=== PATIENT | male | born 1990 | race Caucasian/White ===

== ENCOUNTER 2024-11-16 13:55 | Outpatient (BNV) | payer MEDICARE, MEDICAID, SELFPAY | END 2024-11-25 13:59 | PROVIDERS: Admitting Provider Psychiatry & Neurology Psychiatry; PCP Psychiatry & Neurology Psychiatry; Visit Provider Internal Medicine Cardiovascular Disease | DX: R00.0 Tachycardia, unspecified (principal) | CPT/HCPCS: 93010 ==

== ENCOUNTER 2024-11-16 13:55 | Outpatient (BNV) | payer MEDICARE, MEDICAID, SELFPAY | END 2024-11-28 15:40 | PROVIDERS: Admitting Provider Psychiatry & Neurology Psychiatry; PCP Psychiatry & Neurology Psychiatry; Visit Provider Internal Medicine Cardiovascular Disease | DX: R00.0 Tachycardia, unspecified (principal) | CPT/HCPCS: 93010 ==

== ENCOUNTER 2024-11-16 13:55 | Inpatient (IN) | payer MEDICARE, MEDICAID, SELFPAY ==
--- OUTSIDE RECORDS SUMMARY | 2024-11-15 17:06 | XMS_ITS | Encounter Summary ---
Author Organization [facility] Address [id number] [place] [address] Care Team Providers Care Dobie Man Name Role Phone Ekta Conroy MD Primary Care Provider [phone] Reason for Visit * Reason Comments Psychiatric Evaluation Encounter Details Date Type Department Care Team ([facility] st Contact Info) Description 11/15/2024 5:06 PM EDT - 11/16/2024 1:39 PM EDT Emergency [facility] Emergency [address] [place] [address] Abilio Bryant MD [address] [place] [address] Angel Dial MD [address] [place] [address] Azam Mays MD [address] [place] [address] Frandy Cowan MD [address] [place] [address] Suicidal ideation (Primary Dx) Discharge Disposition: Psychiatric Hospital Social History Tobacco Use Types Packs/Day Years Used Date Smoking Tobacco: Never Smokeless Tobacco: Never Sex and Gender Information Value Date Recorded Sex Assigned at Not on file Legal Sex Male 7:43 PM EST Gender Identity Not on file Sexual Orientation Not on file documented as of this encounter Last Filed Vital Signs Vital Sign Reading Time Taken Comments Blood Pressure 124/90 11/16/2024 12:19 PM EDT Pulse 98 11/16/2024 12:19 PM EDT Temperature 36.7 C (98.1 F) 11/16/2024 12:19 PM EDT Respiratory Rate 16 11/16/2024 12:19 PM EDT Oxygen Saturation 97% 11/16/2024 12:19 PM EDT Inhaled Oxygen Concentration - - Weight 118 kg (260 lb) 11/15/2024 5:20 PM EDT Height 180.3 cm (5' 11 ) 11/15/2024 5:20 PM EDT Body Mass Index 36.26 11/15/2024 5:20 PM EDT documented in this encounter Functional Status * Are you deaf or do you have serious difficulty hearing? Answer Date of Assessment Author No 09/26/2024 1:18 AM Lexii Messina RN * Are you blind or do you have serious difficulty seeing, even when wearing glasses? Answer Date of Assessment Author No 09/26/2024 1:18 AM Lexii Messina RN * Do you have serious difficulty walking or climbing stairs? Answer Date of Assessment Author No 09/26/2024 1:18 AM Lexii Messina RN * Do you have serious difficulty dressing or bathing? Answer Date of Assessment Author No 09/26/2024 1:18 AM Lexii Messina RN * Because of a physical, mental, or emotional condition, do you have serious difficulty doing errandsalone such as visiting the doctor? Answer Date of Assessment Author No 09/26/2024 1:18 AM Lexii Messina RN documented as of this encounter Mental Status * Because of a physical, mental, or emotional condition, do you have serious difficulty concentrating, remembering, or making decisions? (5 years old or older) Answer Entry Date Author No 09/26/2024 1:18 AM Lexii Messina RN documented in this encounter Medications at Time of Discharge buPROPion XL (WELLBUTRIN XL) 150 mg 24 hr tabletIndication s:anxiety with depression Take 2 tablets (300 mg total) by mouth 1 (one) time each day. 08/02/2024 cloZAPine (CLOZARIL) 200 mg tablet Take 2 tablets (400 mg total) by mouth at bedtime. divalproex (DEPAKOTE) [address] tablet Take 2 tablets (500 mg total) by mouth 1 (one) time each day. 04/12/2024 divalproex sodium (DEPAKOTE ORAL) Take 1,000 mg by mouth at bedtime. docusate sodium (COLACE) 100 mg capsule Take 1 capsule (100 mg total) by mouth 2 (two) times a day. 07/16/2024 fluticasone propionate (FLONASE) 50 mcg/actuation nasal spray Administer 1 spray into each nostril 1 (one) time each day if needed for allergies. 12/13/2023 risperiDONE (RisperDAL) 1 mg tablet Take 1 tablet (1 mg total) by mouth 1 (one) time each day in the morning. risperiDONE (RisperDAL) 4 mg tablet Take 1 tablet (4 mg total) by mouth at bedtime. acetaminophen (TYLENOL) 325 mg tablet Take 2 tablets (650 mg total) by mouth every 4 (four) hours if needed. for pain 12/02/2023 hydrOXYzine pamoate (VISTARIL) 50 mg capsule Take 1 capsule (50 mg total) by mouth every 6 (six) hours if needed for anxiety. 07/27/2024 ibuprofen (ADVIL,MOTRIN) 600 mg tablet Take 1 tablet (600 mg total) by mouth every 8 (eight) hours if needed for mild pain. 01/24/2024 LORazepam (ATIVAN) 1 mg tablet Take 1 tablet (1 mg total) by mouth every 8 (eight) hours if needed for anxiety. documented as of this encounter Discharge Disposition Disposition Code Departure Means Destination Comment s Psychiatric Hospital documented in this encounter Progress Notes * Charito Hoyt - 11/16/2024 11:23 AM EDT BED FOUND - Patient accepted to [facility], unit M5, by Dr Valencia for today 11/16/24; ETA set for 2pm. * Angel Dial MD - 11/15/2024 5:58 PM EDT Pt signed out to me by Dr. Bryant. Briefly, this is a 34-year-old male who is evaluated today with chief complaints of suicidal ideation. [facility] a [facility] and has been there for quite some time, he states that he has been abandoned by his family and has not been seen by his family for the past several years. The patient is continue endorsing hopelessness and distraught feelings. I did speak with Bill from crisis team, who does recommend involuntary admission. At this time a bed search is underway. Patient care signed out to Dr. Terry at shift change for further care. * Richardson Maya RN - 11/15/2024 5:04 PM EDT Patient coming from [facility] with several days of depression and suicidal ideation. No plan * Abilio Bryant MD - 11/15/2024 5:00 PM EDT Emergency Medicine Note Patient Name: Ash Phillips Initial Evaluation: 11/15/2024 : 1990 Patient's PCP: Ekta Conroy MD Emergency Physician: Abilio Bryant MD History of Present Illness Chief Complaint: Chief Complaint Patient presents with Psychiatric Evaluation HPI: 34-year-old male presents with suicidal ideation from [facility]. Per EMS report, group and staff state that the patient has history of depression with prior SI attempt and inpatient psychiatrichospitalization. Patient has been having worsening depression and suicidality. Patient states he has acute stressors of loss of support from family, inability to get a job. States that he is feeling distraught, hopeless, and endorses SI. He just denies a specific plan means or intent, states he wanted to be seen before he got that bad again. Previous History Past Medical History: Diagnosis Date Bipolar disorder ([facility] V24, [facility] V28) 03/2022 per emr Cellulitis 03/2022 admitted for cellulitis, see emr, left great toe GERD (gastroesophageal reflux disease) 2008 per EMR Hyperammonemia ([facility] V24) 2019 per EMR Hypertriglyceridemia 2019 per EMR Tolley toxicity 2019 per EMR Normochromic normocytic anemia 2019 per EMR Schizoaffective disorder ([facility] V24, [facility] V28) 03/2022 per emr Seizure disorder ([facility] V24, [facility] V28) 03/2022 per emr Past Surgical History: Procedure Laterality Date REVISION 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 No current facility-administered medications on file prior to encounter. Current Outpatient Medications on File Prior to Encounter Medication Sig Dispense Refill buPROPion XL (WELLBUTRIN XL) 150 mg 24 hr tablet Take 2 tablets (300 mg total) by mouth 1 (one) time each day. cloZAPine (CLOZARIL) 200 mg tablet Take 2 tablets (400 mg total) by mouth at bedtime. divalproex (DEPAKOTE) [address] tablet Take 2 tablets (500 mg total) by mouth 1 (one) time each day. divalproex sodium (DEPAKOTE ORAL) Take 1,000 mg by mouth at bedtime. docusate sodium (COLACE) 100 mg capsule Take 1 capsule (100 mg total) by mouth 2 (two) times a day. fluticasone propionate (FLONASE) 50 mcg/actuation nasal spray Administer 1 spray into each nostril 1 (one) time each day if needed for allergies. risperiDONE (RisperDAL) 1 mg tablet Take 1 tablet (1 mg total) by mouth 1 (one) time each day in the morning. risperiDONE (RisperDAL) 4 mg tablet Take 1 tablet (4 mg total) by mouth at bedtime. acetaminophen (TYLENOL) 325 mg tablet Take 2 tablets (650 mg total) by mouth every 4 (four) hours if needed. for pain (Patient not taking: Reported on 09/25/2024) hydrOXYzine pamoate (VISTARIL) 50 mg capsule Take 1 capsule (50 mg total) by mouth every 6 (six) hours if needed for anxiety. (Patient not taking: Reported on 09/25/2024) ibuprofen (ADVIL,MOTRIN) 600 mg tablet Take 1 tablet (600 mg total) by mouth every 8 (eight) hours if needed for mild pain. (Patient not taking: Reported on 09/25/2024) LORazepam (ATIVAN) 1 mg tablet Take 1 tablet (1 mg total) by mouth every 8 (eight) hours if needed for anxiety. [DISCONTINUED] Banophen 50 mg capsule Take 1 capsule (50 mg total) by mouth every 8 (eight) hours if needed (tremors). (Patient not taking: Reported on 09/25/2024) [DISCONTINUED] hydrocortisone 2.5 % cream Apply 1 Application topically 2 (two) times a day if needed (dry hands). (Patient not taking: Reported on 09/25/2024) [DISCONTINUED] OLANZapine (ZyPREXA) 5 mg tablet Take 1 tablet (5 mg total) by mouth 4 (four) times a day if needed. (Patient not taking: Reported on 09/25/2024) [DISCONTINUED] traZODone (DESYREL) 50 mg tablet Take 1 tablet (50 mg total) by mouth at bedtime as needed for sleep. (Patient not taking: Reported on 09/25/2024) [DISCONTINUED] valACYclovir (VALTREX) 1 gram tablet Take 1 tablet (1,000 mg total) by mouth at bedtime. [DISCONTINUED] valACYclovir (VALTREX) 500 mg tablet Take 1 tablet (500 mg total) by mouth 1 (one) time each day. (Patient not taking: Reported on 09/25/2024) Physical Exam ED Triage Vitals Temp Pulse Resp BP -- -- -- -- SpO2 Temp src Heart Rate Source Patient Position -- -- -- -- BP Location FiO2 (%) -- -- GENERAL: Well-Appearing SKIN: Warm, dry, normal for ethnicity. No rashes. HEENT: Normal sclera, noninjected nonicteric CHEST: Normal peripheral perfusion, no edema PULMONARY: Normal respiratory effort ABDOMINAL: Nondistended NEURO: Alert and oriented, moving all extremities equally PSYCHIATRIC: Flat affect, fluid speech, good eye contact and appropriate demeanor. Endorsing SI, denies HI. Denies VAH. No RIS. Results Labs Reviewed CBC AND DIFFERENTIAL Narrative: The following orders were created for panel order CBC and differential. Procedure Abnormality Status --------- ------ CBC auto differential[[id number]] Please view results for these tests on the individual orders. COMPREHENSIVE METABOLIC PANEL ETHANOL ACETAMINOPHEN LEVEL SALICYLATE LEVEL DRUG ABUSE SCREEN 8A PANEL, URINE CBC WITH AUTO DIFFERENTIAL Abnormal Labs Reviewed - No abnormal labs to display No orders to display I have discussed the incidental/abnormal imaging and/or lab abnormalities with the patient and haveinstructed them the need for further evaluation and workup with their primary care doctor. I have provided the patient with a paper copy of the abnormality. The laboratory results, imaging results and other diagnostic exam results were reviewed in the EMR. Medical Decision Making Differential Diagnosis: Suicidal ideation MDM: 34 old male with a history of prior self-harm and inpatient psychiatric hospitalization presents for worsening depression and suicidal ideation. Medically cleared and referred to crisis. Clinical Impression: Suicidal ideation SEPSIS Exemption: [ x ] It is unlikely this patient has sepsis at the time of my evaluation. Medications - No data to display ED Course as of 11/15/24 1724 WedNov 15, [id number] I, Dr. Diego Bryant, signed this patient out pending further workup and evaluation. History and physical reviewed with oncoming team. At this point the pending portions of the work-up are: Follow crisis evaluation [MG] ED Course User Index [MG] Abilio Bryant MD Clinical Impressions as of 11/15/24 172 Suicidal ideation Procedures Procedures Diagnosis 1. Suicidal ideation Disposition Send to Specialty Department ED Prescriptions None Abilio Byrant MD 11/15/24 1718 Abilio Bryant MD 11/15/24 1724 documented in this encounter Consult Notes * Jasmin Rivera - 11/16/2024 11:25 AM EDT Images from the original note were not included. Behavioral Health Services - Mental Status Update Important times Time assessment started: 11/16/24 10:45 am Time of disposition: 11/16/24 11:15 am Location: [facility] Emergency Department Consulted case with: Jessica Ontiveros LCSW Insurance information: Insurance: Medicare A&B Verified by: Jay Reason for Consultation / Presenting Problem: Ash Phillips is being seen today for a 24 hour re-evaluation due to their state wide bed search being exhausted. 34-year-old male presents with [facility] ideation from [facility]. Per EMS report, group and staff state that the patient has history of depression with prior SI attempt and inpatient psychiatric hospitalization. Patient has been having worsening depression and suicidality. Patient states he has acute stressors of loss of support from family, inability to get a job. States that he is feeling distraught, hopeless, and endorses SI. He just denies a specific plan means or intent, states he wanted to be seen before he got that bad again. He was deemed inpatient level of care. Ash was seen for a mental status update. Ash stated I am depressed and having suicidal thoughts . He stated it will poop into my head several times a day and then I decided to come here before I do something . He reported I am so tired of trying and still feeling like this . Collaterals, contact information, and engagement level: Therapist: [facility] Dr. Pacheco [phone] Psychiatrist: [facility] Dr. Pacheco [phone] PCP: Dr. Ekta Baez [phone] Family: none reported. Other: [facility] worker Ioana Antoine: [phone] [facility]: [phone] Bicycle Assembler Carla Music Engineer Carla Latoya [phone] Director [facility] [phone] Mental Status Speech: WNL Eye Contact: WNL Motor Activity: Slowed Mood: Depressed Affect: Flat Sleep: Fair Appetite: WNL Memory: WNL Attention / Concentration: WNL Behavior: Cooperative Hallucinations: Auditory Delusions: None Thought Content: WNL SI: Presence HI: Denied Thought Process: Hopeless and helpless Orientation Impairment: None Insight: Poor Judgment: Poor Impulse Control: Fair Medications: Scheduled Meds: buPROPion XL, 300 mg, oral, Daily cloZAPine, 400 mg, oral, Nightly divalproex, 500 mg, oral, Daily docusate sodium, 100 mg, oral, BID risperiDONE, 1 mg, oral, q AM risperiDONE, 4 mg, oral, Nightly Continuous Infusions: PRN Meds: PRN medications: acetaminophen, fluticasone propionate, hydrOXYzine pamoate, ibuprofen, LORazepam Risk Assessment: Self-Harm: None Suicidal Behavior: Ideation Homicidal Behavior: None Physical Assault: None Physical Aggression: None Property Damage: None Verbal Aggression: None Family history of suicide: None reported Protective Factors: Providers are supportive Risk Factors: Suicidal thoughts Increased depression Suicide Risk: Based on patient's history and current presentation, their level of risk for intentional lethal harm is considered Low Safety Plan Completed: yes Ash is going inpatient for safety. Interventions: Used active listening Response to interventions: Ash was engaged in the conversation. DSM-5TR Diagnosis: F25.0 Schizoaffective D/O Bipolar Type Plan: Ash is at high risk for suicidal plan and intent. He is at low risk for homicidal plan and intent. He would continue to benefit from inpatient level of care for safety, stabilization and medication evaluation. He is on a section 12 involuntary. Recommendations were discussed with requesting provider. It was a pleasure to assist Ash Phillips here at [facility]. This report is written and finalized by: Jasmin Rivera MS Behavioral Health Specialist [facility] (Tel): [phone] / : [phone] * Sher Carmita - 11/15/2024 6:51 PM EDTAssociated Order(s): IP CONSULT TO MANUFACTURING MAINTENANCE TECHNICIAN; IP CONSULT TO MANUFACTURING MAINTENANCE TECHNICIAN; IP CONSULT TO MANUFACTURING MAINTENANCE TECHNICIAN Images from the original note were not included. Behavioral Health Services - Crisis Assessment Important times Time of arrival: 5:00PM--11/15/2024 Time of referral: 5:17PM--11/15/2024 Time of readiness: 5:19PM--11/15/2024 Time assessment started: 6:00PM--11/15/2024 Time of disposition: 6:45PM--11/15/2024 Location: [facility] Consulted case with: Seble Ragland PsyD Insurance information: Insurance: Medicare A&B Verified by: Bill Reason for Consultation / Presenting Problem: Ash Phillips is being seen today for a consultive service at the request of Angel Dial MD to assess risk and identify appropriate level of care. The patient is a 34-year-old male White male who presents with [facility] ideation from [facility]. Per EMS report, group and staff state that the patient has a history of depression with prior suicidal attempt and inpatient psychiatric hospitalization. The patient has been having worsening depression andsuicidality. The patient states that he has acute stressors of loss of support from family; his inability to get a job. He states that he is feeling distressed, hopeless, and endorses SI. He just denies a specific plan means or intent. He states he wanted to be seen before he got that bad again. During the assessment, the patient appears sad, but cooperative and engaging. He stated, ???I'm notfeeling that great, I feel super depressed than usual and this being going on for the last 4 days.?? He stated his medication was not working for him and recently his prescriber made some changes but so far, no noticeable improvement yet. His family has been disconnected and has been cut- off communication with him since 2009, and no one calls to talk to him or check on him. He has been in this current group-home for 7 years. In addition, he cannot find a job or volunteer. He continued to endorse suicidal ideation, but he stated that he came here before he gets to the point where he might harm himself. History of Present Illness: Ash is a 34 y.o. male with Chief Complaint Patient presents with Psychiatric Evaluation Social/Educational History: Guardian - if Yes, provide contact information: Elton Granados ([phone]) [place] Status: none State Agency Involvement: [facility]. Kyrie's Order: Not reported Marital Status: Single Alternative Placement Details: N/A Living Situation for patient: Residential The patient lives in a group-home. Household Members/Age: unknown Friendships/Family/Social Peer Support/Relationships: No family contact reported, he has the group-home staff. Highest level of education: High School. Comments (Include Learning Needs): none reported. Occupation: Unemployed. Employment/Extracurricular Activities/Hobbies: none reported. Limitations of Daily Activities: No limitation reported. Strengths/Supports: Ash can advocated for his needs. Collaterals, contact information, and engagement level: Therapist: [facility] Dr. Pacheco [phone] Psychiatrist: [facility] Dr. Pacheco [phone] PCP: Dr. Ekta Baez [phone] Family: none reported. Other: [facility] worker Ioana Antoine: [phone] [facility]: [phone] Bicycle Assembler Carla Music Engineer Carla Klein [phone] Director [facility] [phone] Mental Status Speech: WNL Eye Contact: WNL Motor Activity: WNL Mood: WNL Affect: Flat Sleep: Poor Appetite: Fair Memory: WNL Attention / Concentration: WNL Behavior: Cooperative Appearance: Hallucinations: None Delusions: None Thought Content: WNL SI: Presence HI: Denied Thought Process: WNL Orientation Impairment: None Insight: WNL Judgment: WNL Impulse Control: WNL Substance Use History (Including family history): The patient did not reports history of substance use Utox Results: All negative Substance Use Treatment History: No history of treatment history. Mental Health Treatment History: Outpatient Mental Health Treatment: Yes, [facility]. Previous or Current Psychological Diagnosis: Schizoaffective/ Bipolar Type, depression, anxiety. Prior Psychiatric Hospitalizations/Residential Treatment Facilities: The patient stated that he is being admitted about 4/5 times a year mostly for medication and suicidal ideation. Other Comments Regarding Mental Health Treatment History: The patient has a significant psych history of admission and treatment in various hospitals and facilities. Mental Health Concerns in Family: He reported his mom has a history of psychosis, take medication and previous admission, but not able to list specific as far as diagnosis and hospital location. Trauma History: None reported. Medications: Scheduled Meds: Not able to list. Continuous Infusions: N/A PRN Meds: N/A Risk Assessment: Self-Harm: Past and Current Suicidal Behavior: Current Homicidal Behavior: None Physical Assault: None Physical Aggression: None Property Damage: None Verbal Aggression: None Family history of suicide: None reported. Protective Factors: Has providers working with him 24 hour staff working with him. Has safe housing, take his medication as prescribed, help seeking. Risk Factors: previously reported suicidal and tried to run in front of a car, present today with suicidal ideation, previous attempts by overdosing and try to jump from the second floor, missed his family no one calls to check on him since 2009, history of diagnoses, history of multiple admissions. Suicide Risk: Based on patient's history and current presentation, their level of risk for intentional lethal harm is considered Moderate Safety Plan Completed: no The patient will remain in the ED on bed search. Interventions: Active listening, empathetic listening, brief counseling, psychoeducation, support, and safety planning. Response to interventions: The patient engaged to the best of her ability. DSM-5TR Diagnosis: F32.9 Unspecified Depressive Disorder F25.0 Schizoaffective D/O Bipolar Type Plan: Ash is a 34 years old, White male who is being seen today due to increased depression and feeling suicidal, he thought to come here for help before he gets to the point where he will harm himself.He is currently suicidal risk and feeling safe to go back into the community. Based on the above information, it is my clinical opinion that Ash would benefit from an inpatient psychiatric admission for safety and containment, mood stabilization, medication evaluation, diagnostic clarification, and participation in a therapeutic milieu. Upon discharge, he would benefit from a referral to outpatient providers for continued medication management, and to gain insight and psychoeducation into his mental health symptoms and develop adaptive coping skills for his depression and suicidal ideation. Recommendations were discussed with requesting provider. It was a pleasure to assist Ash Phillips here at [facility]. This report is written and finalized by: DANNY Garcia Behavioral Health Specialist [facility] (Tel): [phone] / : [phone] documented in this encounter Miscellaneous Notes * ED Bed Hold Note - Debi Fernandes RN - 11/15/2024 5:06 PM EDT Bed: GA-D Expected date: Expected time: Means of arrival: Comments: 34 yo M +SI; calm/cooperative/voluntary documented in this encounter Plan of Treatment Upcoming Encounters Date Type Department Care Team (Late st Contact Info) Description 01/16/2025 11:00 AM EDT Consult Orthopedic Surgery - [facility] [address] [facility] [address] [place] [id number] Papi Francois, [facility] [address] [place] [address] Pending Results Name Type Priority Associated Diagnoses Date /Time ECG 12 lead ECG STAT 11/16/2024 10 :34 AM EDT documented as of this encounter Procedures Procedure Name Priority Date/Time Associated Diagnosis Comments ECG 12-LEAD STAT 11/16/2024 10:34 AM EDT CBC WITH AUTO DIFFERENTIAL STAT 11/15/2024 5:32 PM EDT CBC AND DIFFERENTIAL STAT 11/15/2024 5:32 PM EDT ETHANOL STAT 11/15/2024 5:32 PM EDT ACETAMINOPHEN LEVEL STAT 11/15/2024 5 :32 PM EDT SALICYLATE LEVEL STAT 11/15/2024 5:32 PM EDT COMPREHENSIVE METABOLIC PANEL STAT 11/15/2024 5:32 PM EDT DRUG ABUSE SCREEN 8A PANEL, URINE STAT 11/15/2024 5:16 PM EDT documented in this encounter Results * (ABNORMAL) CBC auto differential (11/15/2024 5:32 PM EDT) WBC 6.8 4.8 - 10.8 K/mcL LAB HEMETOLOGY METHOD 11/15/2024 5:56 PM EDT [facility] RBC 5.10 4.50 - 5.50 M/mcL LAB HEMETOLOGY METHOD 11/15/2024 5:56 PM EDT [facility] Hemoglobin 14.6 13.5 - 17.5 g/dL LAB HEMETOLOGY METHOD 11/15/2024 5:56 PM EDT [facility] Hematocrit 45.0 42.0 - 54.0 % LAB HEMETOLOGY METHOD 11/15/2024 5:56 PM EDT [facility] MCV 87.9 79.0 - 98.0 FL LAB HEMETOLOGY METHOD 11/15/2024 5:56 PM EDT [facility] MCH 28.5 27.0 - 32.0 pcg LAB HEMETOLOGY METHOD 11/15/2024 5:56 PM EDT [facility] MCHC 32.4 32.0 - 37.0 g/dL LAB HEMETOLOGY METHOD 11/15/2024 5:56 PM EDT [facility] RDW 13.1 11.0 - 15.0 % LAB HEMETOLOGY METHOD 11/15/2024 5:56 PM EDT [facility] Platelets 196 130 - 400 K/mcL LAB HEMETOLOGY METHOD 11/15/2024 5:56 PM EDT [facility] MPV 10.2 7.0 - 11.0 FL LAB HEMETOLOGY METHOD 11/15/2024 5:56 PM EDT [facility] NRBC 0.0 <1.0 % LAB HEMETOLOGY METHOD 11/15/2024 5:56 PM [facility] NRBC Absolute 0.00 <0.10 K/mcL LAB HEMETOLOGY METHOD 11/15/2024 5:56 PM [facility] Neutrophils Relative 44.9 % LAB [facility]EMETOLOGY [facility] Lymphocytes Relative 39.8 % LAB HEMETOLOGY METHOD 11/15/2024 5:56 PM EDT [facility] Monocytes Relative 11.3 % LAB HEMETOLOGY METHOD [facility]/15[facility]2024 5:[facility] PM [facility] Eosinophils Relative 2.5 % LAB HEMETOLOGY METHOD 11/15/2024 5:56 PM [facility] Basophils Relative 0.6 % LAB HEMETOLOGY METHOD 11/15/2024 5:56 PM EDT [facility] Immature Granulocytes Relative 0.9 % LAB HEMETOLOGY METHOD 11/15/2024 5:56 PM EDT [facility] Neutrophils Absolute 3.05 1.50 - 7.00 K/mcL LAB HEMETOLOGY METHOD 11/15/2024 5:56 PM EDT [facility] Lymphocytes Absolute 2.70 1.00 - 5.00 K/mcL LAB HEMETOLOGY METHOD 11/15/2024 5:56 PM EDT [facility] Monocytes Absolute 0.77 0.20 - 1.00 K/mcL LAB HEMETOLOGY METHOD 11/15/2024 5:56 PM EDT [facility] Eosinophils Absolute 0.17 0.00 - 0.50 K/mcL LAB HEMETOLOGY METHOD 11/15/2024 5:56 PM EDT [facility] Basophils Absolute 0.04 0.00 - 0.20 K/mcL LAB HEMETOLOGY METHOD 11/15/2024 5:56 PM EDT [facility] Immature Granulocytes Absolute 0.06(H) 0.00 - 0.03 K/mcL LAB HEMETOLOGY METHOD 11/15/2024 5:56 PM EDT [facility] Blood Venous blood specimen / Unknown Venipuncture / Unknown 11/15/2024 5:32 PM EDT 11/15/2024 5:50 PM EDT us Abilio Bryant MD LAB BLOOD ORDERABLES Final Resu lt [facility] [address] [place] [address], * (ABNORMAL) Salicylate level (11/15/2024 5:32 PM EDT) Salicylate Level <1.7(L) 2.0 - 29.0 mg/dL LAB CHEMISTRY METHOD 11/15/2024 6:22 PM EDT [facility] Blood Venous blood specimen / Unknown Venipuncture / Unknown 11/15/2024 5:32 PM EDT 11/15/2024 5:50 PM EDT us Abilio Bryant MD LAB BLOOD ORDERABLES Final Resu lt Performing Organization Address [facility] de Phone Number [facility] [address] [place] [address], [place] [phone] * (ABNORMAL) Acetaminophen level (11/15/2024 5:32 PM EDT) Acetaminophen Level <2.0(L) 10.0 - 30.0 mcg/mL LAB CHEMISTRY METHOD 11/15/2024 6:24 PM EDT [facility] Blood Venous blood specimen / Unknown Venipuncture / Unknown 11/15/2024 5:32 PM EDT 11/15/2024 5:50 PM EDT us Abilio Bryant MD LAB BLOOD ORDERABLES Final Resu lt Performing Organization Address [facility] de Phone Number [facility] [address] [place] [address], [place] [phone] * Ethanol (11/15/2024 5:32 PM EDT) Ethanol Level <3 0 - 10 mg/dL LAB CHEMISTRY METHOD 11/15/2024 6:22 PM EDT [facility] Blood Venous blood specimen / Unknown Venipuncture / Unknown 11/15/2024 5:32 PM EDT 11/15/2024 5:50 PM EDT us Abilio Bryant MD LAB BLOOD ORDERABLES Final Resu lt Performing Organization Address [facility] Co de Phone Number [facility] [address] [place] [address], [place] [phone] * (ABNORMAL) Comprehensive metabolic panel (11/15/2024 5:32 PM EDT) Sodium 136 133 - 145 mmol/L LAB CHEMISTRY METHOD 11/15/2024 6:22 PM [facility] Potassium 3.8 3.5 - 5.5 mmol/L LAB CHEMISTRY METHOD 11/15/2024 6:22 PM [facility] Chloride 105 96 - 110 mmol/L LAB CHEMISTRY METHOD 11/15/2024 6:22 PM [facility] CO2 25 21 - 32 mmol/L LAB CHEMISTRY METHOD 11/15/2024 6:22 PM [facility] Anion Gap 6 3 - 11 LAB CHEMISTRY METHOD 11/15/2024 6:22 PM [facility] Glucose 138(H) 70 - 100 mg/dL LAB CHEMISTRY METHOD 11/15/2024 6:22 PM [facility] BUN 18 5 - 25 mg/dL LAB CHEMISTRY METHOD 11/15/2024 6:22 PM [facility] Creatinine 1.01 0.70 - 1.30 mg/dL LAB CHEMISTRY METHOD 11/15/2024 6:22 PM [facility] eGFR 99 >=60 mL/min/1. 73m2 LAB CHEMISTRY METHOD 11/15/2024 6:22 PM [facility] Comment:Calculation based on the Chronic Kidney Disease Epidemiology Collaboration (CKD-EPI) equation refit without adjustment for race. BUN/Creatinine Ratio 17.8 LAB CHEMISTRY METHOD 11/15/2024 6:22 PM [facility] Calcium 9.5 8.5 - 10.5 mg/dL LAB CHEMISTRY METHOD 11/15/2024 6:22 PM [facility] AST (SGOT) 21 10 - 42 unit/L LAB CHEMISTRY METHOD 11/15/2024 6:22 PM EDT [facility] ALT (SGPT) 41 10 - 60 unit/L LAB CHEMISTRY METHOD 11/15/2024 6:22 PM EDT [facility] Alkaline Phosphatase 108 42 - 121 unit/L LAB CHEMISTRY METHOD 11/15/2024 6:22 PM EDT [facility] Total Protein 8.0 6.0 - 8.0 g/dL LAB CHEMISTRY METHOD 11/15/2024 6:22 PM EDT [facility] Albumin 3.9 3.2 - 5.0 g/dL LAB CHEMISTRY METHOD 11/15/2024 6:22 PM EDT [facility] Total Bilirubin 0.3 0.0 - 1.4 mg/dL LAB CHEMISTRY METHOD 11/15/2024 6:22 PM EDT [facility] Blood Venous blood specimen / Unknown Venipuncture / Unknown 11/15/2024 5:32 PM EDT 11/15/2024 5:50 PM EDT us Abilio Bryant MD LAB BLOOD ORDERABLES Final Resu lt [facility] [address] [place] [address], * Drug abuse screen 8a panel, urine (11/15/2024 5:16 PM EDT) Amphetamine Screen, Ur Negative Negative LAB CHEMISTRY METHOD 11/15/2024 6:25 PM EDT [facility] Comment:Certain OTC medicati ons containing ephedrine, phenylephrine, pseudoephedrine and phenylpropanolamine can cause false positive results. Barbiturate Screen, Ur Negative Negative LAB CHEMISTRY METHOD 11/15/2024 6:25 PM EDT [facility] Benzodiazepine Screen, Ur Negative Negative LAB CHEMISTRY METHOD 11/15/2024 6:25 PM EDT [facility] Cocaine Screen, Ur Negative Negative LAB CHEMISTRY METHOD 11/15/2024 6:25 PM EDT [facility] Opiate Screen, Ur Negative Negative LAB CHEMISTRY METHOD 11/15/2024 6:25 PM EDT [facility] Cannabinoid (THC) Screen, Ur Negative Negative LAB CHEMISTRY METHOD 11/15/2024 6:25 PM EDT [facility] Comment:Specimens from patie nts taking pantoprazole sodium (Protonix) have been shown to produce false positive results. Oxycodone Screen, Ur Negative Negative LAB CHEMISTRY METHOD 11/15/2024 6:25 PM EDT [facility] Fentanyl, Ur Negative Negative LAB CHEMISTRY METHOD 11/15/2024 6:25 PM EDT [facility] Urine Urine specimen obtained by clean catch procedure / Unknown Non-blood Collection / Unknown 11/15/2024 5:16 PM EDT 11/15/2024 6:12 PM EDT Narrative [facility] - 11/15/2024 6:25 PM EDT Assay cutoffs: Amphetamines 1000 ng/mL Barbiturates 200 ng/mL Benzodiazepines 200 ng/mL Cocaine 300 ng/mL Fentanyl 1 ng/mL Opiates 300 ng/mL Oxycodone 100 ng/mL THC 50 ng/mL Semi-quantitative assay for screening purposes only. Unconfirmed screening result should not be used for non-medical purposes. *ALTERNATE METHOD CONFIRMATION DONE UPON REQUEST ONLY* Abilio Bryant MD LAB URINE ORDERABLES Final Resu lt [facility] [address] [place] [address], documented in this encounter Visit Diagnoses Diagnosis Suicidal ideation- Primary documented in this encounter Administered Medications Active Administered Medications - up to 3 most recent administrations Medication Order MAR Action Action Date Dose Rate Site buPROPion XL (WELLBUTRIN XL) 24 hr tablet 300 mg 300 mg, oral, Daily, First dose on Wed11/16/24 at 0900, Do not crush, chew, or split., Indications: anxiety with depressionIndications:anxiety with depression Given 11/16/2024 8:58 AM EDT 300 mg cloZAPine (CLOZARIL) tablet 400 mg 400 mg, oral, Nightly, First dose on Wed11/15/24 at 2100, Has the home dose of cloZAPine and last date/time taken been confirmed? Yes, Has there been a break in cloZAPine therapy GREATER than OR equal to 2 days? No Given 11/15/2024 8:31 PM EDT 400 mg divalproex (DEPAKOTE) DR tablet 500 mg 500 mg, oral, Daily, First dose on Wed11/16/24 at 0900, Hazardous Medication Intact: - Single pair of ASTM standard [id number] certified gloves - Eye/face protection if vomit or potential to spit up - Do NOT split, crush, or open dosage units Given 11/16/2024 8:58 AM EDT 500 mg docusate sodium (COLACE) capsule 100 mg 100 mg, oral, 2 times daily, First dose on Wed11/15/24 at 2100 Given 11/16/2024 8:57 AM EDT 100 mg Given 11/15/2024 8:32 PM EDT 100 mg hydrOXYzine pamoate (VISTARIL) capsule 50 mg 50 mg, oral, Every 6 hours PRN, anxiety, Starting on Wed11/15/24 at 1940 Given 11/15/2024 8:32 PM EDT 50 mg ibuprofen (ADVIL,MOTRIN) tablet 600 mg 600 mg, oral, Every 8 hours PRN, mild pain, Starting on Wed11/15/24 at 1940, Administer with food or milk to decrease GI upset Given 11/16/2024 1:02 PM EDT 600 m g LORazepam (ATIVAN) tablet 1 mg 1 mg, oral, Every 8 hours PRN, anxiety, Starting on Wed11/15/24 at 1940 Given 11/16/2024 3:42 AM EDT 1 mg risperiDONE (RisperDAL) tablet 1 mg 1 mg, oral, Every morning, First dose on Wed11/16/24 at 0700 Given 11/16/2024 6:10 AM EDT 1 mg risperiDONE (RisperDAL) tablet 4 mg 4 mg, oral, Nightly, First dose on Wed11/15/24 at 2100 Given 11/15/2024 8:32 PM EDT 4 mg documented in this encounter Discontinued Medications Medication Sig Discontinue Reason Start Date End Da te Banophen 50 mg capsule Take 1 capsule (50 mg total) by mouth every 8 (eight) hours if needed (tremors). 02/08/2024 11/15/2024 traZODone (DESYREL) 50 mg tablet Take 1 tablet (50 mg total) by mouth at bedtime as needed for sleep. 04/13/2024 11/15/2024 valACYclovir (VALTREX) 1 gram tablet Take 1 tablet (1,000 mg total) by mouth at bedtime. 07/27/2024 11/15/2024 valACYclovir (VALTREX) 500 mg tablet Take 1 tablet (500 mg total) by mouth 1 (one) time each day. 07/27/2024 11/15/2024 OLANZapine (ZyPREXA) 5 mg tablet Take 1 tablet (5 mg total) by mouth 4 (four) times a day if needed. 04/13/2024 11/15/2024 hydrocortisone 2.5 % cream Apply 1 Application topically 2 (two) times a day if needed (dry hands). 11/24/2023 11/15/2024 documented as of this encounter Active and Recently Administered Medications Times are shown in EDT. Scheduled Medication Order 11/14/2024 11/15/2024 11/16/2024 buPROPion XL (WELLBUTRIN XL) 24 hr tablet 300 mg 300 mg, oral, Daily, First dose on Wed11/16/24 at 0900, Do not crush, chew, or split., Indications: anxiety with depression 857 (Given - Provid er: Clayton Peña RN) cloZAPine (CLOZARIL) tablet 400 mg 400 mg, oral, Nightly, First dose on Wed11/15/24 at 2100, Has the home dose of cloZAPine and last date/time taken been confirmed? Yes, Has there been a break in cloZAPine therapy GREATER than OR equal to 2 days? No 2030 (Given - Provider: Jennifer Guerrero RN) 2100 (Due) divalproex (DEPAKOTE) DR tablet 500 mg 500 mg, oral, Daily, First dose on Wed11/16/24 at 0900, Hazardous Medication Intact: - Single pair of ASTM standard [id number] certified gloves - Eye/face protection if vomit or potential to spit up - Do NOT split, crush, or open dosage units 0858 (Given - Provid er: Clayton Peña RN) docusate sodium (COLACE) capsule 100 mg 100 mg, oral, 2 times daily, First dose on Wed11/15/24 at 2099 2031 (Given - Provider: Jennifer Guerrero RN) 0857 (Given - Provider: Clayton Peña RN)2099 (Due) risperiDONE (RisperDAL) tablet 1 mg 1 mg, oral, Every morning, First dose on Jaclyn 11/16/24 at 0700 0610 (Given - Provid er: Kenny Blanca RN) risperiDONE (RisperDAL) tablet 4 mg 4 mg, oral, Nightly, First dose on Wed11/15/24 at 2099 2031 (Given - Provider: Jennifer Guerrero RN) 2099 (Due) PRN Medication Order 11/14/2024 11/15/2024 11/16/2024 acetaminophen (TYLENOL) tablet 650 mg 650 mg, oral, Every 4 hours PRN, mild pain, Starting on Wed11/15/24 at 194 fluticasone propionate (FLONASE) 50 mcg/actuation nasal spray 1 spray 1 spray, Each Nostril, Daily PRN, rhinitis, Starting on Wed11/15/24 at 194, Shake gently. Before first use, prime pump (press 6 times until fine spray appears). After use, clean tip and replace cap. hydrOXYzine pamoate (VISTARIL) capsule 50 mg 50 mg, oral, Every 6 hours PRN, anxiety, Starting on Wed11/15/24 at [id number] (Given - Provider: Jennifer Guerrero RN) ibuprofen (ADVIL,MOTRIN) tablet 600 mg 600 mg, oral, Every 8 hours PRN, mild pain, Starting on Wed11/15/24 at 1940, Administer with food or milk to decrease GI upset 1302 (Given - Provid er: Clayton Peña RN) LORazepam (ATIVAN) tablet 1 mg 1 mg, oral, Every 8 hours PRN, anxiety, Starting on Wed11/15/24 at 1940 0342 (Given - Provid er: Kenny Blanca RN) documented in this encounter Orders Medications Ordered That Ronaldo ht Not Have Been Administered Count Last Ordered Date First Ordered Date acetaminophen (TYLENOL) tablet 650 mg 1 fluticasone propionate (FLON ASE) 50 mcg/actuation nasal spray 1 spray 1 11/15/2024 Diet Count Last Ordered Date First Orde red Date ADULT DIET 1 11/16/2024 Nursing Count Last Ordered Date First Orde red Date VITAL SIGNS 1 11/16/2024 Consult Count Last Ordered Date First Orde red Date IP CONSULT TO MANUFACTURING MAINTENANCE TECHNICIAN 1 11/15/2024 Precaution Count Last Ordered Date First Orde red Date SUICIDE PRECAUTIONS 1 11/15/2024 Privilege Level Count Last Ordered Date First O rdered Date PATIENT SOLAR INSTALLATION TECHNICIAN 1 11/16/2024 documented in this encounter Care Teams Dobie Man Relationship Specialty Start Date End Date Ekta Conroy MD [id number] [place] [id number] PCP - General Internal Medicine 10/24/24 documented as of this encounter
[2024-11-16 14:42] VITALS: BP 140/80; PULSE 109; RESP 18; TEMP 36.4; O2SAT 98
[2024-11-16 14:43] VITALS: BMI 36.2
--- NOTE | 2024-11-16 15:00 | PC.ADMIT ---
Patient is a 34-year-old male who was admitted to and arrived on the unit at 1437 via EMS from [facility]. On arrival to the unit patient was changed over with skin check complete by two RNs. The patient resides in a skilled nursing and has services through [facility] in the community, the patient reported increasing depression over the past week which has caused him to have suicidal ideation without a plan. He states that his current stressors are related to his inability to get a job and loss of family supports. States that he is feeling hopeless and wanted to get help before he got worse and did something to hurt himself. Patient denies current plan or intent but remains to have intermittent SI. Reports being safe on the unit and feels able to engage with staff if he feels unsafe. Patient is concerned about not being able to have access to his nintendo switch which he states is a main coping tool for him and would like to have access for periods during the day, patient informed of electronics policy which made him anxious, took PRN with positive effect. Patient informed treatment team will review request in the AM, verbalized understanding.
--- OUTSIDE RECORDS SUMMARY | 2024-11-16 15:09 | XMS_ITS | Clinical Summary ---
Author Organization [address] Address [address] [place] [id number] Phone Care Team Providers Care Senior Product Engineer Name Role Phone Ekta Conroy MD Primary Care Provider [phone] Allergies Active Allergy Reactions Criticality Noted Date Comments Benztropine Unknown 02/11/2024 pt states causes to vomit Chaste Tree Fruit Nausea And Vomiting Peaches, plums, oranges, plums, broccoli,carrots, pears.Raisins Propranolol Cardiac Issue Medium 02/07/2024 Prolonged QT per [facility] paperwork [place] Unknown 02/11/2024 [place] Carbonate 02/07/2024 Nutritional Supplements 02/11/2024 Medications cloZAPine (CLOZARIL) 200 mg tablet Take 2 tablets (400 mg total) by mouth at bedtime. Active risperiDONE (RisperDAL) 4 mg tablet Take 1 tablet (4 mg total) by mouth at bedtime. Active risperiDONE (RisperDAL) 1 mg tablet Take 1 tablet (1 mg total) by mouth 1 (one) time each day in the morning. Active LORazepam (ATIVAN) 1 mg tablet Take 1 tablet (1 mg total) by mouth every 8 (eight) hours if needed for anxiety. Active fluticasone propionate (FLONASE) 50 mcg/actuation nasal spray Administer 1 spray into each nostril 1 (one) time each day if needed for allergies. 12/13/19 24 Active ibuprofen (ADVIL,MOTRIN) 600 mg tablet Take 1 tablet (600 mg total) by mouth every 8 (eight) hours if needed for mild pain. 01/24/20 24 Active acetaminophen (TYLENOL) 325 mg tablet Take 2 tablets (650 mg total) by mouth every 4 (four) hours if needed. for pain 12/02/19 24 Active buPROPion XL (WELLBUTRIN XL) 150 mg 24 hr tabletIndicati ons:anxiety with depression Take 2 tablets (300 mg total) by mouth 1 (one) time each day. 08/03/19 25 Active docusate sodium (COLACE) 100 mg capsule Take 1 capsule (100 mg total) by mouth 2 (two) times a day. 07/17/19 25 Active hydrOXYzine pamoate (VISTARIL) 50 mg capsule Take 1 capsule (50 mg total) by mouth every 6 (six) hours if needed for anxiety. 07/28/19 25 Active divalproex (DEPAKOTE) [address] tablet Take 2 tablets (500 mg total) by mouth 1 (one) time each day. 04/12/19 Active divalproex sodium (DEPAKOTE ORAL) Take 1,000 mg by mouth at bedtime. Active hydrocortisone 2.5 % cream Apply 1 Application topically 2 (two) times a day if needed (dry hands). 11/24/19 025 Discontinued Banophen 50 mg capsule Take 1 capsule (50 mg total) by mouth every 8 (eight) hours if needed (tremors). 02/08/20 025 Discontinued OLANZapine (ZyPREXA) 5 mg tablet Take 1 tablet (5 mg total) by mouth 4 (four) times a day if needed. 04/13/19 025 Discontinued traZODone (DESYREL) 50 mg tablet Take 1 tablet (50 mg total) by mouth at bedtime as needed for sleep. 04/13/19 025 Discontinued valACYclovir (VALTREX) 1 gram tablet Take 1 tablet (1,000 mg total) by mouth at bedtime. 07/28/19 025 Discontinued valACYclovir (VALTREX) 500 mg tablet Take 1 tablet (500 mg total) by mouth 1 (one) time each day. 07/28/19 025 Discontinued Active Problems No known active problems Encounters Date Type Department Care Team Description 11/15/2024 5:06 PM EDT - 11/16/2024 1:39 PM EDT Emergency [facility] Emergency [address] [place] [id number] Abilio Bryant MD Ziebro, John, MD Lawrenz, MD Chapo Rajan Bannet, MD Suicidal ideation (Primary Dx) Discharge Disposition: [facility] 09/25/2024 6:32 PM EDT - 09/27/2024 9:09 AM EDT Emergency [facility] Emergency [address] [place] [address] Abilio Bryant MD Landry, MD Bambi Salinas Scot A, MD Cauchon, Matthew C, DO Santos, Andrea Colmenares MD Suicidal ideation (Primary Dx) Discharge Disposition: [facility] from Last 3 Months Surgical History Surgery Date Site/Laterality Comments 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 Medical History Medical History Date Comments Schizoaffective disorder ( S/HCC V24, [facility] V28) 03/2022 per emr Bipolar disorder ([facility]/HCC V24, [facility] V28) 03/23 023 per emr Seizure disorder ([facility]/HCC V24, [facility] V28) 03/23 023 per emr Cellulitis 03/2022 admitted for katerin lulitis, see emr, left great toe GERD (gastroesophageal reflux disease) 2008 per EMR Hypertriglyceridemia 2019 per EMR Normochromic normocytic anemia 2019 p er EMR [place] toxicity 2019 per EMR Hyperammonemia ([facility]/HCC V24) 2019 per EMR Family History Medical History Relation Name Comments Schizophrenia Father per psychiatry consult Relation Name Status Comments Father Social History Tobacco Use Types Packs/Day Years Used Date Smoking Tobacco: Never Smokeless Tobacco: Never Tobacco Cessation:Counseling Given: Not Answered Sex and Gender Information Value Date Recorded Sex Assigned at Not on file Legal Sex Male 7:43 PM EST Gender Identity Not on file Sexual Orientation Not on file Obstetrics History Last Filed Vital Signs Vital Sign Reading [...] Mass Index 36.26 11/15/2024 5:20 PM EDT Plan of Treatment Upcoming Encounters Date Type Department Care Team (Late st Contact Info) Description 01/16/2025 11:00 AM EDT Consult Orthopedic Surgery - [place] [address] [place] [phone] Papi Francois, FAMILIA [address] [place] [phone] Health Maintenance Due Date Last Done Comments Hepatitis B Vaccines (1 of 3 - 19+ 3-dose series) 02/25/2007 Cholesterol Screening (Lipid Panel) 02/21/2022 HIV Screening 02/21/2022 Hepatitis C Screening 02/21/2022 Medicare Annual Wellness Visit 02/21/2022 Social Influencers of Health Screening 02/21/2022 COVID-19 Vaccine ( season) 2023 01/08/2022, 01/17/2021, 05/14/2020, Additional history exists Depression Screening 03/22/2024 Influenza Vaccine (#1) 2024 , 01/06/2023, 12/04/2021, Additional history exists DTaP,Tdap,and Td Vaccines (3 - Td or Tdap) 01/20/2032 01/19/2022, 01/08/2012 HIB Vaccines Aged Out No longer eligi ble based on patient's age to complete this topic HPV Vaccines Aged Out No longer eligi ble based on patient's age to complete this topic Hepatitis A Vaccines Aged Out No long er eligible based on patient's age to complete this topic IPV Vaccines Aged Out No longer eligi ble based on patient's age to complete this topic MMR Vaccines Aged Out No longer eligi ble based on patient's age to complete this topic Meningococcal ACWY Vaccine Aged Out N o longer eligible based on patient's age to complete this topic Meningococcal B Vaccine Aged Out No l onger eligible based on patient's age to complete this topic Pneumococcal Vaccine: Pediatrics (0 to 5 Years) and At-Risk Patients (6 to 49 Years) Aged Out No longer eligible based on patient's age to complete this topic RSV Immunization Patients Under 20 months Aged Out No longer eligible based on patient's age to complete this topic Varicella Vaccines Aged Out No longer eligible based on patient's age to complete this topic Procedures Procedure Name Priority Date/Time Associated Diagnosis Comments ECG 12-LEAD STAT 11/16/2024 10:34 AM EDT CBC WITH AUTO DIFFERENTIAL STAT 11/15/2024 5:32 PM EDT SALICYLATE LEVEL STAT 11/15/2024 5:32 PM EDT ACETAMINOPHEN LEVEL STAT 11/15/2024 5 :32 PM EDT ETHANOL STAT 11/15/2024 5:32 PM EDT COMPREHENSIVE METABOLIC PANEL STAT 11/15/2024 5:32 PM EDT CBC AND DIFFERENTIAL STAT 11/15/2024 5:32 PM EDT DRUG ABUSE SCREEN 8A PANEL, URINE STAT 11/15/2024 5:16 PM EDT CBC WITH AUTO DIFFERENTIAL Routine 11/07/2024 1:43 PM EDT Drug therapy CBC AND DIFFERENTIAL Routine 11/07/2024 1:43 PM EDT Drug therapy CBC WITH AUTO DIFFERENTIAL Routine 10/12/2024 12:14 PM EDT Drug therapy CBC AND DIFFERENTIAL Routine 10/12/2024 12:14 PM EDT Drug therapy ECG ANNOTATED 09/28/2024 METHADONE SCREEN, URINE STAT 09/25/2024 7:39 PM EDT PHENCYCLIDINE, URINE STAT 09/25/2024 7:39 PM EDT BUPRENORPHINE SCREEN, URINE STAT 09/25/2024 7:39 PM EDT DRUG ABUSE SCREEN 8A PANEL, URINE STAT 09/25/2024 7:39 PM EDT CBC WITH AUTO DIFFERENTIAL STAT 09/25/2024 7:22 PM EDT VALPROIC ACID LEVEL, TOTAL STAT 09/25/2024 7:22 PM EDT SALICYLATE LEVEL STAT 09/25/2024 7:22 PM EDT ACETAMINOPHEN LEVEL STAT 09/25/2024 7 :22 PM EDT ETHANOL STAT 09/25/2024 7:22 PM EDT COMPREHENSIVE METABOLIC PANEL STAT 09/25/2024 7:22 PM EDT CBC AND DIFFERENTIAL STAT 09/25/2024 7:22 PM EDT ECG 12-LEAD STAT 09/25/2024 7:01 PM EDT CBC WITH AUTO DIFFERENTIAL Routine 09/05/2024 11:45 AM EDT Drug therapy CBC AND DIFFERENTIAL Routine 09/05/2024 11:45 AM EDT Drug therapy from Last 3 Months Results * (ABNORMAL) CBC auto differential (11/15/2024 5:32 PM EDT) Only the most recent of5 resultswithin the time period is included. WBC 6.8 4.8 - 10.8 K/mcL LAB HEMETOLOGY METHOD 11/15/2024 5:56 PM EDT [facility] RBC 5.10 4.50 - 5.50 M/mcL LAB HEMETOLOGY METHOD 11/15/2024 5:56 PM EDT [facility] Hemoglobin 14.6 13.5 - 17.5 g/dL LAB HEMETOLOGY METHOD 11/15/2024 5:56 PM EDT [facility] Hematocrit 45.0 42.0 - 54.0 % LAB HEMETOLOGY METHOD 11/15/2024 5:56 PM EDT [facility] MCV 87.9 79.0 - 98.0 FL LAB HEMETOLOGY METHOD 11/15/2024 5:56 PM EDT [facility] MCH 28.5 27.0 - 32.0 pcg LAB HEMETOLOGY METHOD 11/15/2024 5:56 PM EDT [facility] MCHC 32.4 32.0 - 37.0 g/dL LAB HEMETOLOGY METHOD 11/15/2024 5:56 PM EDT [facility] RDW 13.1 11.0 - 15.0 % LAB HEMETOLOGY METHOD 11/15/2024 5:56 PM EDT [facility] Platelets 196 130 - 400 K/mcL LAB HEMETOLOGY METHOD 11/15/2024 5:56 PM EDT [facility] MPV 10.2 7.0 - 11.0 FL LAB HEMETOLOGY METHOD 11/15/2024 5:56 PM EDT [facility] NRBC 0.0 <1.0 % LAB HEMETOLOGY METHOD 11/15/2024 5:56 PM EDT [facility] NRBC Absolute 0.00 <0.10 K/mcL LAB HEMETOLOGY METHOD 11/15/2024 5:56 PM EDT [facility] Neutrophils Relative 44.9 % LAB HEMETOLOGY METHOD 11/15/2024 5:56 PM EDT [facility] Lymphocytes Relative 39.8 % LAB HEMETOLOGY METHOD 11/15/2024 5:56 PM EDT [facility] Monocytes Relative 11.3 % LAB HEMETOLOGY METHOD 11/15/2024 5:56 PM EDT [facility] Eosinophils Relative 2.5 % LAB HEMETOLOGY METHOD 11/15/2024 5:56 PM EDT [facility] Basophils Relative 0.6 % LAB HEMETOLOGY METHOD 11/15/2024 5:56 PM EDT [facility] Immature Granulocytes Relative 0.9 % LAB HEMETOLOGY METHOD 11/15/2024 5:56 PM EDT [facility] Neutrophils Absolute 3.05 1.50 - 7.00 K/mcL LAB HEMETOLOGY METHOD 11/15/2024 5:56 PM EDT [facility] Lymphocytes Absolute 2.70 1.00 - 5.00 K/mcL LAB HEMETOLOGY METHOD 11/15/2024 5:56 PM EDT [facility] Monocytes Absolute 0.77 0.20 - 1.00 K/mcL LAB HEMETOLOGY METHOD 11/15/2024 5:56 PM EDT [facility] Eosinophils Absolute 0.17 0.00 - 0.50 K/mcL LAB HEMETOLOGY METHOD 11/15/2024 5:56 PM EDT [facility] Basophils Absolute 0.04 0.00 - 0.20 K/mcL LAB HEMETOLOGY METHOD 11/15/2024 5:56 PM EDT [facility] Immature Granulocytes Absolute 0.06(H) 0.00 - 0.03 K/mcL LAB HEMETOLOGY METHOD 11/15/2024 5:56 PM EDT [facility] Blood Venous blood specimen / Unknown Venipuncture / Unknown 11/15/2024 5:32 PM EDT 11/15/2024 5:50 PM EDT us Abilio Bryant MD LAB BLOOD ORDERABLES Final Resu lt [facility] [address] [place] [address], * Ethanol (11/15/2024 5:32 PM EDT) Only the most recent of2 resultswithin the time period is included. Ethanol Level <3 0 - 10 mg/dL LAB CHEMISTRY METHOD 11/15/2024 6:22 PM EDT [facility] Blood Venous blood specimen / Unknown Venipuncture / Unknown 11/15/2024 5:32 PM EDT 11/15/2024 5:50 PM EDT us Abilio Bryant MD LAB BLOOD ORDERABLES Final Resu lt Performing Organization Address City/[facility]/ZIP Co de Phone Number [facility] [address] [place] [address], [place] [phone] * (ABNORMAL) Acetaminophen level (11/15/2024 5:32 PM EDT) Only the most recent of2 resultswithin the time period is included. Acetaminophen Level <2.0(L) 10.0 - 30.0 mcg/mL LAB CHEMISTRY METHOD 11/15/2024 6:24 PM EDT [facility] Blood Venous blood specimen / Unknown Venipuncture / Unknown 11/15/2024 5:32 PM EDT 11/15/2024 5:50 PM EDT us Abilio Bryant MD LAB BLOOD ORDERABLES Final Resu lt Performing Organization Address City/[facility]/ZIP Co de Phone Number [facility] [address] [place] [address], [place] [phone] * (ABNORMAL) Salicylate level (11/15/2024 5:32 PM EDT) Only the most recent of2 resultswithin the time period is included. Salicylate Level <1.7(L) 2.0 - 29.0 mg/dL LAB CHEMISTRY METHOD 11/15/2024 6:22 PM EDT [facility] Blood Venous blood specimen / Unknown Venipuncture / Unknown 11/15/2024 5:32 PM EDT 11/15/2024 5:50 PM EDT us Abilio Bryant MD LAB BLOOD ORDERABLES Final Resu lt [facility] [address] [place] [address], [place] [phone] * (ABNORMAL) Comprehensive metabolic panel (11/15/2024 5:32 PM EDT) Only the most recent of2 resultswithin the time period is included. Sodium 136 133 - 145 mmol/L LAB CHEMISTRY METHOD 11/15/2024 6:22 PM [facility] Potassium 3.8 3.5 - 5.5 mmol/L LAB CHEMISTRY METHOD 11/15/2024 6:22 PM [facility] Chloride 105 96 - 110 mmol/L LAB CHEMISTRY METHOD 11/15/2024 6:22 PM [facility] CO2 25 21 - 32 mmol/L LAB CHEMISTRY METHOD 11/15/2024 6:22 PM [facility] Anion Gap 6 3 - 11 LAB CHEMISTRY METHOD 11/15/2024 6:22 PM [facility] Glucose 138(H) 70 - 100 mg/dL LAB CHEMISTRY METHOD 11/15/2024 6:22 PM [facility] BUN 18 5 - 25 mg/dL LAB CHEMISTRY METHOD 11/15/2024 6:22 PM [facility] Creatinine 1.01 0.70 - 1.30 mg/dL LAB CHEMISTRY METHOD 11/15/2024 6:22 PM [facility] eGFR 99 >=60 mL/min/1. 73m2 LAB CHEMISTRY METHOD 11/15/2024 6:22 PM [facility] Comment:Calculation based on the Chronic Kidney Disease Epidemiology Collaboration (CKD-EPI) equation refit without adjustment for race. BUN/Creatinine Ratio 17.8 LAB CHEMISTRY METHOD 11/15/2024 6:22 PM EDT [facility] Calcium 9.5 8.5 - 10.5 mg/dL LAB CHEMISTRY METHOD 11/15/2024 6:22 PM EDT [facility] AST (SGOT) 21 10 - 42 unit/L LAB CHEMISTRY METHOD 11/15/2024 6:22 PM T [facility] ALT (SGPT) 41 10 - 60 unit/L LAB CHEMISTRY METHOD 11/15/2024 6:22 PM [facility] Alkaline Phosphatase 108 42 - 121 unit/L LAB CHEMISTRY METHOD 11/15/2024 6:22 PM [facility] Total Protein 8.0 6.0 - 8.0 g/dL LAB CHEMISTRY METHOD 11/15/2024 6:22 PM [facility] Albumin 3.9 3.2 - 5.0 g/dL LAB CHEMISTRY METHOD 11/15/2024 6:22 PM [facility] Total Bilirubin 0.3 0.0 - 1.4 mg/dL LAB CHEMISTRY METHOD 11/15/2024 6:22 PM [facility] Blood Venous blood specimen / Unknown Venipuncture / Unknown 11/15/2024 5:32 PM EDT 11/15/2024 5:50 PM EDT us Abilio Bryant MD LAB BLOOD ORDERABLES Final Resu lt [facility] [address] [place] [address], * Drug abuse screen 8a panel, urine (11/15/2024 5:16 PM EDT) Only the most recent of2 resultswithin the time period is included. Amphetamine Screen, Ur Negative Negative LAB CHEMISTRY METHOD 11/15/2024 6:25 PM EDT [facility] Comment:Certain OTC medicati ons containing ephedrine, phenylephrine, pseudoephedrine and phenylpropanolamine can cause false positive results. Barbiturate Screen, Ur Negative Negative LAB CHEMISTRY METHOD 11/15/2024 6:25 PM EDT [facility] Benzodiazepine Screen, Ur Negative Negative LAB CHEMISTRY METHOD 11/15/2024 6:25 PM EDT [facility] Cocaine Screen, Ur Negative Negative LAB CHEMISTRY METHOD 11/15/2024 6:25 PM [facility] Opiate Screen, Ur Negative Negative LAB CHEMISTRY METHOD 11/15/2024 6:25 PM [facility] Cannabinoid (THC) Screen, Ur Negative Negative LAB CHEMISTRY METHOD 11/15/2024 6:25 PM [facility] Comment:Specimens from patie nts taking pantoprazole sodium (Protonix) have been shown to produce false positive results. Oxycodone Screen, Ur Negative Negative LAB CHEMISTRY [facility]24 [facility] Fentanyl, Ur Negative Negative LAB CHEMISTRY METHOD 11/15/2024 6:25 PM [facility] Urine Urine specimen obtained by clean catch procedure / Unknown Non-blood Collection / Unknown 11/15/2024 5:16 PM EDT 11/15/2024 6:12 PM EDT Narrative [facility] - 11/15/2024 6:25 PM EDT Assay cutoffs: Amphetamines 1000 ng/mL Barbiturates 200 ng/mL Benzodiazepines 200 ng/mL Cocaine 300 ng/mL Fentanyl 1 ng/mL Opiates 300 ng/mL Oxycodone 100 ng/mL THC 50 ng/mL Semi-quantitative assay for screening purposes only. Unconfirmed screening result should not be used for non-medical purposes. *ALTERNATE METHOD CONFIRMATION DONE UPON REQUEST ONLY* us Abilio Bryant MD LAB URINE ORDERABLES Final Resu lt [facility] [address] [place] [address], [place] [phone] * ECG-Annotated (09/28/2024) Provider Onbase ECG ORDERABLES Final Result * Buprenorphine screen, urine (09/25/2024 7:39 PM EDT) Buprenorphine Screen Urine Negative Negative LAB CHEMISTRY METHOD 09/25/2024 8:25 PM EDT [facility] Urine Urine specimen obtained by clean catch procedure / Unknown Non-blood Collection / Unknown 09/25/2024 7:39 PM EDT 09/25/2024 7:53 PM EDT Narrative [facility] - 09/25/2024 8:25 PM EDT Assay cutoff 5 ng/mL Semi-quantitative assay for screening purposes only. Unconfirmed screening result should not be used for non-medical purposes. *ALTERNATE METHOD CONFIRMATION DONE UPON REQUEST ONLY* Abilio Bryant MD LAB URINE ORDERABLES Final Resu lt Performing Organization Address City/[facility]/ZIP Co de Phone Number [facility] [address] [place] [address], [place] [phone] * Methadone, urine (09/25/2024 7:39 PM EDT) [facility] Methadone Screen, Urine Negative Negative LAB CHEMISTRY METHOD 09/25/2024 8:25 PM EDT [facility] Comment: Assay cutoff 300 ng/mL Semi-quantitative assay for screening purposes only. Unconfirmed screening result should not be used for non-medical purposes. *ALTERNATE METHOD CONFIRMATION DONE UPON REQUEST ONLY* Urine Urine specimen obtained by clean catch procedure / Unknown Non-blood Collection / Unknown 09/25/2024 7:39 PM EDT 09/25/2024 7:53 PM EDT Abilio Bryant MD LAB URINE ORDERABLES Final Resu lt Performing Organization Address City/[facility]/ZIP Co de Phone Number [facility] [address] [place] [address], [place] [phone] * Phencyclidine, urine (09/25/2024 7:39 PM EDT) [facility] PCP Scrn, Ur Negative Negative LAB CHEMISTRY METHOD 09/25/2024 8:25 PM EDT [facility] Comment: Assay cutoff 25 ng/mL Semi-quantitative assay for screening purposes only. Unconfirmed screening result should not be used for non-medical purposes. *ALTERNATE METHOD CONFIRMATION DONE UPON REQUEST ONLY* Urine Urine specimen obtained by clean catch procedure / Unknown Non-blood Collection / Unknown 09/25/2024 7:39 PM EDT 09/25/2024 7:53 PM EDT Abilio Bryant MD LAB URINE ORDERABLES Final Resu lt Performing Organization Address [facility] de Phone Number [facility] [address] [place] [address], [place] [phone] * Valproic acid level, total (09/25/2024 7:22 PM EDT) [facility] Valproic Acid, Total 75 50 - 100 mcg/mL LAB CHEMISTRY METHOD 09/25/2024 8:02 PM EDT [facility] Blood Venous blood specimen / Unknown Venipuncture / Unknown 09/25/2024 7:22 PM EDT 09/25/2024 7:27 PM EDT Abilio Bryant MD LAB BLOOD ORDERABLES Final Resu lt Performing Organization Address [facility] de Phone Number [facility] [address] [place] [address], [place] [phone] * ECG 12 lead (09/25/2024 7:01 PM EDT) [facility] Ventricular Rate ECG 113 BPM GEMUSE Atrial Rate 113 BPM GEMUSE P-R Interval 138 ms GEMUSE QRS Duration 80 ms GEMUSE Q-T Interval 338 ms GEMUSE QTc 463 ms GEMUSE P Wave [place] 64 degrees GEMUSE R [place] 34 degrees GEMUSE T [place] 32 degrees GEMUSE ECG Interpretation Sinus tachycardia Possible Left atrial enlargement Borderline ECG When compared with ECG of 11-FEB-2024 22:58, No significant change was found Confirmed by LAMBERT HERNDON ([id number]) on 09/28/2024 8:01:21 AM GEMUSE 09/25/2024 7:01 PM EDT 09/28/2024 8:01 AM EDT us Abilio Bryant MD ECG ORDERABLES Final Result [facility] from Last 3 Months Insurance MEDICA[place] - [place] MEDICARE Advance Directives Documents on File Type Date Recorded 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 Health Care Decision (hx) 10/19/2022 AD MARCOS DIRECTIVE Health Care Decision (hx) 10/19/2022 AD MARCOS DIRECTIVE Health Care Decision (hx) 10/19/2022 AD MARCOS DIRECTIVE Health Care Decision (hx) 10/19/2022 AD MARCOS DIRECTIVE Health Care Decision (hx) 10/19/2022 AD MARCOS DIRECTIVE Health Care Decision (hx) 10/19/2022 AD MARCOS DIRECTIVE Health Care Decision (hx) 10/19/2022 AD MARCOS DIRECTIVE Health Care Decision (hx) 10/19/2022 AD MARCOS DIRECTIVE Health Care Decision (hx) 10/19/2022 AD MARCOS DIRECTIVE Health Care Decision (hx) 05/06/2018 AD MARCOS DIRECTIVE Health Care Decision (hx) 05/06/2018 AD MARCOS DIRECTIVE Health Care Decision (hx) 05/06/2018 AD MARCOS DIRECTIVE Health Care Decision (hx) 05/06/2018 AD MARCOS DIRECTIVE Health Care Decision (hx) 05/06/2018 AD MARCOS DIRECTIVE Health Care Decision (hx) 05/06/2018 AD MARCOS DIRECTIVE Health Care Decision (hx) 05/06/2018 AD MARCOS DIRECTIVE Health Care Decision (hx) 05/06/2018 AD MARCOS DIRECTIVE Health Care Decision (hx) 05/06/2018 AD MARCOS DIRECTIVE Health Care Decision (hx) 05/06/2018 AD MARCOS DIRECTIVE Health Care Decision (hx) 05/06/2018 AD MARCOS DIRECTIVE Care Teams Senior Product Engineer Relationship Specialty Start Date End Date Ekta Conroy MD [address] [address] PCP - General Internal Medicine 10/24/24
[2024-11-16 19:03] LABS: Neut%MD 42.0 %; WBCANC 8.6 X10*3/uL
[2024-11-16 20:10] VITALS: BP 150/91; PULSE 115; RESP 16; TEMP 36.8; O2SAT 96
[2024-11-17 08:00] VITALS: BP 118/58; PULSE 101; TEMP 36.6; O2SAT 96
[2024-11-17] MEDS: buPROPion HCl XL 300 MG TAB.ER.24H PO (08:15)
[2024-11-17 08:18] LABS: Hemoglobin A1C 128.0736 umol/L; Total Hemoglobin (HGBA1C) 3544.7963 umol/L
[2024-11-17 08:27] LABS: Alanine Aminotransferase 35 U/L (0-40); Albumin Level 4.3 g/dL (3.5-5.0); Alkaline Phosphatase 91 U/L (39-117); Anion Gap 14 (12-20); Aspartate Amino Transferase 36 U/L (5-37); Blood Urea Nitrogen 16 mg/dL (9-16); Calcium 9.2 mg/dL (8.4-10.2); Carbon Dioxide 25 mmol/L (22-29); Chloride 105 mmol/L (96-108); Cholesterol 319 mg/dL (<200); Creatinine Clr Calc Pharmacy 153.1; Estimated Glomerular Filt Rate > 60; HDL Cholesterol 30 mg/dL (>40); Potassium 4.1 mmol/L (3.3-5.1); Sodium 140 mmol/L (135-145); Total Protein 7.5 g/dL (6.5-8.0); Triglycerides 898 mg/dL (<150)
--- NOTE | 2024-11-17 12:47 | HO.PSYADMNOT ---
HPI Date of Service: 11/17/24 Chief Complaint: Depressive D/O Schizoaffective Sources of Information: patient interviewed, chart reviewed and crisis/core team assessment reviewed HPI Narrative: Patient is a 34-year-old male with history of schizoaffective disorder bipolar type, Autism Spectrum Disorder, who lives in a shelter, on a community Vela who presents for depression. Patient reports that every 7 weeks (and every 4 months) medications don't work...and I feel depressed.... He says the the depression last anywhere from 2 to 12 days.. And then resolves on it's own without medication changes. Patient reports that he had suicidal ideation a few days ago, no plan but does not now. Patient says sometimes he hears sounds or voices that others do not hear, sometimes laughing noise but not very often and usually just during sleep. Discussed medication regimen and patient said that recently his Depakote was increased because he was having mood swings but it was difficult for him to give details. Discussed medication options and patient agrees to increase Wellbutrin to 450 mg. Medical Evaluation Reviewed: Hospitalist Jag Pending [facility] Medical History (Updated 11/17/24 @ 17:22 by Asif Valencia MD) Autism spectrum disorder Schizoaffective disorder, bipolar type Family History: Patient raised in foster care Social History: Patient raised in foster care Foster parents still somewhat involved Patient has guardian and Vela order; lives in shelter Substance History: Denied Trauma History: Deferred Diagnostics Vital Signs (24Hr): Vital Signs - 24 hr 11/16/24 14:42 11/16/24 20:10 11/17/24 08:00 Temperature 97.6 F 98.3 F 97.9 F Pulse Rate 109 H 115 H 101 H Respiratory Rate 18 16 Blood Pressure 140/80 H 150/91 H 118/58 L Pulse Oximetry 98 96 96 Oxygen Delivery Method Room Air Room Air Room Air BMI result Body Mass Index 36.2 Labs 11/17/24 07:53 Labs: Laboratory Results - last 48 hr 11/16/24 11/17/24 18:20 07:53 Absolute Neuts (auto) 3.6 Sodium 140 Potassium 4.1 Chloride 105 Carbon Dioxide 25 Anion Gap 14 BUN 16 Creatinine 0.87 Estim Creat Clear Calc 153.1 Estimated GFR > 60 Random Glucose 112 Estimat Average Glucose 111 Hemoglobin A1c % 5.5 Calcium 9.2 Total Bilirubin 0.1 AST 36 ALT 35 Alkaline Phosphatase 91 Total Protein 7.5 Albumin 4.3 Triglycerides 898 H Cholesterol 319 H LDL Cholesterol, Calc TNP HDL Cholesterol 30 L Meds/Allergies Meds Home Medications ?Medication ?Instructions ?Recorded ?Confirmed ?Type bupropion HCl 300 mg 24 hr tablet, 300 mg PO DAILY 11/16/24 11/16/24 History extended release clozapine 200 mg tablet 400 mg PO BEDTIME 11/16/24 11/16/24 History divalproex 500 mg tablet,delayed 1,000 mg PO BEDTIME 11/16/24 11/16/24 History release docusate sodium 100 mg capsule 100 mg PO BID 11/16/24 11/16/24 History fluticasone propionate 50 1 spray intranasal DAILY 11/16/24 11/16/24 History mcg/actuation nasal spray,suspension hydroxyzine pamoate 50 mg capsule 50 mg PO BID 11/16/24 11/16/24 History lorazepam 1 mg tablet 1 mg PO Q8H PRN anxiety 11/16/24 11/16/24 History risperidone 1 mg tablet 1 mg PO QAM 11/16/24 11/16/24 History risperidone 4 mg tablet 4 mg PO BEDTIME 11/16/24 11/16/24 History Allergies Allergies Allergy/AdvReac Type Severity Reaction Status Date / Time benztropine (From COGENTIN) Allergy Unknown UNKNOWN Verified 11/16/24 15:51 propranolol (From INDERAL LA) Allergy Unknown UNKNOWN Verified 11/16/24 15:51 chaste tree Allergy Unknown Verified 11/16/24 15:51 lithium Allergy Unknown Verified 11/16/24 15:51 Mental Status Exam Mental Status Exam Narrative: Pt is alert and oriented; behavior is cooperative, friendly and calm; patient is not in distress; dressed in casual attire; marginal hygiene; bilateral pill rolling tremor; some tongue fasciculations/TD; mood is described as better and affect congruent; eye contact appropriate; Speech is normal rate, volume and prosody and not pressured; no psychomotor agitation/retardation present; thought process is organized and goal directed; Thought content is on tx; otherwise pertinent to relevant topics and without any delusional content, paranoid ideations or grandiosity; denies any SI/HI. Patient reports intermittent AH but says it is infrequent; patient does not seem internally preoccupied. Patients insight and judgment improving Assessment & Plan Assessment & Plan (1) Schizoaffective disorder, bipolar type: Status: Acute Code(s): F25.0 - Schizoaffective disorder, bipolar type (2) Autism spectrum disorder: Status: Acute Code(s): F84.0 - Autistic disorder Plan Patient is a 34-year-old male with history of schizoaffective disorder bipolar type, Autism Spectrum Disorder, who lives in a shelter, on a [facility] who presents for depression. Patient reports that every 7 weeks (and every 4 months) medications don't work...and I feel depressed.... He says the the depression last anywhere from 2 to 12 days.. And then resolves on it's own without medication changes. Patient reports that he had suicidal ideation a few days ago, no plan but does not now. Patient says sometimes he hears sounds or voices that others do not hear, sometimes laughing noise but not very often and usually just during sleep. Discussed medication regimen and patient said that recently his Depakote was increased because he was having mood swings but it was difficult for him to give details. Discussed medication options and patient agrees to increase Wellbutrin to 450 mg. Formulation/clinical reasoning: Patient reports that episodically he still gets bouts of depression that can last for longer than a week however this seemed to resolve on their own. He is not sure what triggers them. Patient says he is already feeling better now that he is on the unit because of the friendships and interactions he has made since coming to the unit; patient signed a 3 day notice. Discussed medication options and patient agrees to increase Wellbutrin to 450 mg. Proofsheet Corrector wonders if perhaps patient can remain at Wellbutrin 300 mg and just take the extra 150 mg if he starts to feel depressed, sort of as an episodic p.r.n. -patient currently on 2 antipsychotics, including Clozaril and Risperdal; -some TD and pill rolling b/l hand tremor observed; wonder if Risperdal dose could be lowered; consider Ingrezza Of note patient had severely high Triacylglycerides of 898. It appears to have been taken while patient fasting however patient is not sure. TAG this high puts patient at risk for pancreatitis. Will redraw labs tomorrow morning to ensure fasting however for now will treat as if this is an accurate lab Plan: Three day notice Q 15 minute checks 1. Depression: Increase Wellbutrin XL to 450 mg Continue Risperdal 1 mg a.m. and 4 mg q.h.s. Continue Clozaril 400 mg q.h.s.; get level Continue Depakote 1000 mg q.h.s.; get level START Fenobibrate 160mg daily for severely elevated Triacylglycerides of 898 (pt has normal renal function) Continue other home medications -consider Ingrezza 2. TAG 898 (appears to be fasting)/Cholesterol 319 re-order Lipid panel for tomorrow to ensure fasting lab value obtained (pt and nursing aware) Start Fenobibrate 160mg daily (pt has normal renal function) Change diet to Low Fat diet will consider Statin Ordered TSH (lft's WNL) hospitalist consult Patient educated on: diagnosis, medication risk/benefits and medical condition Informed Consent: understands Reason for continued inpatient stay Substantial Risk for: rapid decompensation Statement Statement: I have reviewed the history and physical and performed a pertinent examination on my patient. No changes have occurred unless specified. If the History and Physical was not performed prior to admission, the Hospitalist's service will be consulted for completing the admission physical. Time Spent With Patient Time: Total time managing care of this patient today ____ minutes.
[2024-11-17] MEDS: buPROPion HCl XL 150 MG TAB.ER.24H PO (13:55)
[2024-11-17 20:00] VITALS: BP 133/63; PULSE 119; TEMP 36.7; O2SAT 94
--- NOTE | 2024-11-17 22:26 | P.CONHOSP_ITS ---
History of Present Illness Data of Consult Service Date: 11/17/24 Requesting physician: Asif Valencia Primary Care Provider: Isra King MD HPI Reason for consult: Medical H and P Patient is a 34-year-old male with a past medical history significant for autism spectrum disorder, schizophrenia and history is C-spine fusion, admitted to adult Psychiatry M5 from [facility]. Hospitalist consult placed for medical H and P. The patient had been reporting increased anxiety and depression with SI without plan. He denies any medical concerns currently including chest pain, shortness of breath, nausea, vomiting, abdominal pain, URI symptoms, urinary symptoms or numbness/tingling. Medical history was reviewed with the patient. He is anxious and requesting his Nintendo switch. He does show that he has a fungal toenail on the left great toe, after showering his left great toe we will be erythematous. He is denying any pain, spread of erythema, edema or purulent drainage. Review of Systems 2 Constitutional: Constitutional: Denies chills, Denies fatigue, Denies fever(s) and Denies headache(s) Eyes: Eyes: Denies change in vision ENT: Denies headache(s), Denies nasal congestion and Denies sore throat Cardiovascular: Cardiovascular: Denies chest pain, Denies rapid heart rate, Denies leg edema and Denies dyspnea Respiratory: Respiratory: Denies chest congestion, Denies cough, Denies dyspnea and Denies wheezing Gastrointestinal: Gastrointestinal: Denies abdominal pain, Denies nausea and Denies vomiting Genitourinary: Genitourinary: Denies dysuria and Denies urinary urgency Musculoskeletal: Musculoskeletal: Denies back pain Integumentary/Breasts: Skin/Breast: Denies rash Neurologic: Denies confusion and Denies headache(s) Psychiatric: Psychiatric: Denies confusion Endocrine: Endocrine: Denies fatigue Hematologic/Lymphatic: Hematologic/Lymphatic: Denies easy bleeding and Denies easy bruising Allergic/Immunologic: Allergic/Immunologic: Denies wheezing PMFSH Medical History Autism spectrum disorder Schizoaffective disorder, bipolar type Functional capacity: independent ambulation Social History Household Members: Other Household Members Other:: assisted Housing: Other Housing Other:: assisted Do you presently have visiting nurse or other home services: Yes Patient Tobacco Use Status: Never used Tobacco Currently Displaying Signs/Symptoms of Drug Intoxication Withdrawal: No Have you been hit, kicked, punched, or otherwise hurt by someone within the past year? If so, by whom?: No Do you feel safe in your current relationship?: No Current Relationship Is there a partner from a previous relationship who is making you feel unsafe now?: No Are you made to feel afraid or neglected: No Spiritual Healthcare Practices: None Caodaism Healthcare Practices: None Cultural Healthcare Practices: None Advance Directives: No Advance Directives Information Provided: Yes Do you have thoughts of harming others: None Do you have a plan to hurt others: No Plan Recently lost weight without trying: No Nutrition Risks: Dental problems and Difficulty chewing Poor oral hygiene: No service: No Sexual orientation: Straight/Heterosexual Meds Allergies Allergy/AdvReac Type Severity Reaction Status Date / Time benztropine (From COGENTIN) Allergy Unknown UNKNOWN Verified 11/16/24 15:51 propranolol (From INDERAL LA) Allergy Unknown UNKNOWN Verified 11/16/24 15:51 chaste tree Allergy Unknown Verified 11/16/24 15:51 lithium Allergy Unknown Verified 11/16/24 15:51 Active Medications: Current Medications Acetaminophen (Acetaminophen 325 Mg Tablet) 650 mg PO Q6H PRN PRN Reason: Headache/Pain, Scale 1-10 Last Admin: 11/17/24 21:10 Dose: 650 mg Al Hydroxide/Mg Hydroxide (Magnesium Hydrox/Alum Hydrox 30 Ml Oral.Susp) 30 ml PO Q6H PRN PRN Reason: Heartburn/Nausea Bupropion HCl (Bupropion Hcl Xl 300 Mg Tab.Er.24h) 300 mg PO DAILY STEWART Last Admin: 11/17/24 08:15 Dose: 300 mg Bupropion HCl (Bupropion Hcl Xl 150 Mg Tab.Er.24h) 150 mg PO DAILY STEWART Clonidine HCl (Clonidine Hcl 0.1 Mg Tablet) 0.1 mg PO Q4H PRN; Protocol PRN Reason: moderate anxiety Clozapine (Clozapine 100 Mg Tablet) 400 mg PO BEDTIME STEWART Last Admin: 11/17/24 21:09 Dose: 400 mg Divalproex Sodium (Divalproex Sodium 500 Mg Tablet.Dr) 1,000 mg PO BEDTIME STEWART Last Admin: 11/17/24 21:10 Dose: 1,000 mg Docusate Sodium (Docusate Sodium 100 Mg Capsule) 100 mg PO BID [facility] Last Admin: 11/17/24 21:10 Dose: 100 mg Fenofibrate (Fenofibrate 160 Mg Tablet) 160 mg PO DAILY [facility] Last Admin: 11/17/24 13:55 Dose: 160 mg Fluticasone Propionate (Fluticasone Propionate Nasal 16 Gm [place]) 1 spray NOSTRIL-B BEDTIME [facility] Last Admin: 11/17/24 21:09 Dose: 1 spray Hydroxyzine HCl (Hydroxyzine Hcl 25 Mg Tablet) 25 mg PO Q6H PRN PRN Reason: mild anxiety Last Admin: 11/17/24 01:36 Dose: 25 mg Hydroxyzine HCl (Hydroxyzine Hcl 50 Mg Tablet) 50 mg PO BID [facility] Last Admin: 11/17/24 21:10 Dose: 50 mg Lorazepam (Lorazepam 1 Mg Tablet) 1 mg PO Q8H PRN PRN Reason: Anxiety Last Admin: 11/16/24 16:42 Dose: 1 mg Magnesium Hydroxide (Milk Of Magnesia 30 Ml Oral.Susp) 30 ml PO DAILY PRN PRN Reason: Constipation Nicotine (Nicotine 21 Mg Patch.Td24) 21 mg TRANSDERMA DAILY PRN PRN Reason: smoking cessation Nicotine Polacrilex (Nicotine Polacrilex 2 Mg Gum) 4 mg BUCCAL Q2H PRN PRN Reason: Nicotine Cravings Olanzapine (Olanzapine 5 Mg Tablet) 5 mg PO TID PRN PRN Reason: agitation Last Admin: 11/17/24 21:11 Dose: 5 mg Risperidone (Risperidone 2 Mg Tablet) 4 mg PO BEDTIME [facility] Last Admin: 11/17/24 21:11 Dose: 4 mg Risperidone (Risperidone 1 Mg Tablet) 1 mg PO DAILY [facility] Last Admin: 11/17/24 08:15 Dose: 1 mg Trazodone HCl (Trazodone Hcl 50 Mg Tablet) 50 mg PO BEDTIME MRX1 PRN PRN Reason: Insomnia Last Admin: 11/17/24 21:11 Dose: 50 mg Home Medications ?Medication ?Instructions ?Recorded ?Confirmed ?Last Taken ?Type bupropion HCl 300 mg 24 hr tablet, 300 mg PO DAILY 11/16/24 Unknown History extended release clozapine 200 mg tablet 400 mg PO BEDTIME 11/16/24 0 11/16/24 Unknown History divalproex 500 mg tablet,delayed 1,000 mg PO BEDTIME 0 11/16/24 11/16/24 Unknown History release docusate sodium 100 mg capsule 100 mg PO BID 11/16/24 11/16/24 Unknown History fluticasone propionate 50 1 spray intranasal DAILY 11/16/24 Unknown History mcg/actuation nasal spray,suspension hydroxyzine pamoate 50 mg capsule 50 mg PO BID 5 11/16/24 Unknown History lorazepam 1 mg tablet 1 mg PO Q8H PRN anxiety 10/2111/16/24 Unknown History risperidone 1 mg tablet 1 mg PO QAM 11/16/24 5 Unknown History risperidone 4 mg tablet 4 mg PO BEDTIME 11/16/24 Unknown History Physical Exam 2 Vital Signs and Narrative: Vital Signs: Last Vital Signs Temp 97.9 F 11/17/24 08:00 Pulse 101 H 11/17/24 08:00 Resp 16 11/16/24 20:10 BP 118/58 L 11/17/24 08:00 Pulse Ox 96 11/17/24 08:00 O2 Del Method Room Air 11/17/24 08:00 BMI result Body Mass Index 36.2 General: AOx3, no acute distress Resp: CTA bilaterally CVS: S1, S2, RRR GI: +BS, NT, no distention Skin: Warm, dry Neuro: Cranial nerves II-XII grossly intact bilaterally. Motor grossly intact bilaterally Extremities: No edema. Left great toe with fungal nail. Toe erythematous, no increased warmth or purulent drainage. Psych: Anxious, pacing Const: General: No confusion Orientation/consciousness: No confusion Neuro: General: No confusion Results Labs 11/17/24 07:53 Labs: Laboratory Results - last 24 hr 11/17/24 07:53 Anion Gap 14 Estim Creat Clear Calc 153.1 Estimated GFR > 60 Random Glucose 112 Estimat Average Glucose 111 Hemoglobin A1c % 5.5 Calcium 9.2 Total Bilirubin 0.1 AST 36 ALT 35 Alkaline Phosphatase 91 Total Protein 7.5 Albumin 4.3 Triglycerides 898 H Cholesterol 319 H LDL Cholesterol, Calc TNP HDL Cholesterol 30 L Assessment and Plan (1) Medical clearance for psychiatric admission: Status: Acute (2) Class 3 obesity: Status: Acute Plan Patient is a 34-year-old male with a past medical history significant for autism spectrum disorder, schizophrenia and history is C-spine fusion, admitted to adult Psychiatry M5 from [facility]. mood/SI - plan per psych L great toenail fungal infection - f/u with investment sales assistant outpatient - reconsult if increased erythema, pain, warmth or drainage Class 3 obesity - BMI 36.2 - weight loss encouraged Thank you for allowing me to participate in the pt's care. Signing off. Please contact the medical team if any questions or concerns.
[2024-11-18 08:00] VITALS: BP 126/71; PULSE 84; RESP 20; TEMP 36.6; O2SAT 93
[2024-11-18] MEDS: buPROPion HCl XL 150 MG TAB.ER.24H PO (08:55)
[2024-11-18] MEDS: buPROPion HCl XL 300 MG TAB.ER.24H PO (08:55)
--- NOTE | 2024-11-18 09:03 | HO.PSYCHPN ---
Subjective Subjective Date of Service: 11/18/24 Reason For Visit: Depressive D/O Schizoaffective Interim History: Patient reports he is feeling better. Remains somewhat hyperactive, intrusive. He is talkative. Says he wants to play with his [place] Switch and that he is looking for permission from this commercial insurance underwriter. It was explained that the primary team makes this decision to give access to electronics and that he would need to wait. He was agreeable and did not lose control. Denies SI. Review of Systems Constitutional: Denies chills, Denies fatigue, Denies fever(s) and Denies headache(s) Eyes: Denies change in vision Denies headache(s), Denies nasal congestion and Denies sore throat Cardiovascular: Denies chest pain, Denies rapid heart rate, Denies leg edema and Denies dyspnea Respiratory: Denies chest congestion, Denies cough, Denies dyspnea and Denies wheezing Gastrointestinal: Denies abdominal pain, Denies nausea and Denies vomiting Genitourinary: Denies dysuria and Denies urinary urgency Musculoskeletal: Denies back pain Skin/Breast: Denies rash Denies confusion and Denies headache(s) Psychiatric: Denies confusion Endocrine: Denies fatigue Hematologic/Lymphatic: Denies easy bleeding and Denies easy bruising Allergic/Immunologic: Denies wheezing Mental Status Exam Mental Status Exam Narrative: Pt is alert and oriented; behavior is cooperative, friendly and calm; patient is not in distress; dressed in casual attire; marginal hygiene; bilateral pill rolling tremor; some tongue fasciculations/TD; mood is described as better and affect congruent; eye contact appropriate; Speech is normal rate, volume and prosody and not pressured; no psychomotor agitation/retardation present; thought process is organized and goal directed; Thought content is on tx; otherwise pertinent to relevant topics and without any delusional content, paranoid ideations or grandiosity; denies any SI/HI. Patient reports intermittent AH but says it is infrequent; patient does not seem internally preoccupied. Patients insight and judgment improving Diagnostics Vital Signs (24Hr): Vital Signs - 24 hr 11/17/24 20:00 11/18/24 08:00 Temperature 98.0 F 97.8 F Pulse Rate 119 H 84 Respiratory Rate 20 Blood Pressure 133/63 126/71 Pulse Oximetry 94 93 Oxygen Delivery Method Room Air Room Air BMI result Body Mass Index 36.2 Labs 08/29/25 07:53 Labs: Laboratory Results - last 48 hr 11/16/24 11/17/24 11/18/24 18:20 07:53 08:42 Absolute Neuts (auto) 3.6 Hold Purple Top SEE NOTE Sodium 140 Potassium 4.1 Chloride 105 Carbon Dioxide 25 Anion Gap 14 BUN 16 Creatinine 0.87 Estim Creat Clear Calc 153.1 Estimated GFR > 60 Random Glucose 112 Estimat Average Glucose 111 Hemoglobin A1c % 5.5 Calcium 9.2 Total Bilirubin 0.1 AST 36 ALT 35 Alkaline Phosphatase 91 Total Protein 7.5 Albumin 4.3 Triglycerides 898 H Cholesterol 319 H LDL Cholesterol, Calc TNP HDL Cholesterol 30 L Medications Medications Current Medications Acetaminophen (Acetaminophen 325 Mg Tablet) 650 mg PO Q6H PRN PRN Reason: Headache/Pain, Scale 1-10 Last Admin: 11/17/24 21:10 Dose: 650 mg Al Hydroxide/Mg Hydroxide (Magnesium Hydrox/Alum Hydrox 30 Ml Oral.Susp) 30 ml PO Q6H PRN PRN Reason: Heartburn/Nausea Bupropion HCl (Bupropion Hcl Xl 300 Mg Tab.Er.24h) 300 mg PO DAILY [facility] Last Admin: 11/18/24 08:55 Dose: 300 mg Bupropion HCl (Bupropion Hcl Xl 150 Mg Tab.Er.24h) 150 mg PO DAILY [facility] Last Admin: 11/18/24 08:55 Dose: 150 mg Clonidine HCl (Clonidine Hcl 0.1 Mg Tablet) 0.1 mg PO Q4H PRN; Protocol PRN Reason: moderate anxiety Clozapine (Clozapine 100 Mg Tablet) 400 mg PO BEDTIME [facility] Last Admin: 11/17/24 21:09 Dose: 400 mg Divalproex Sodium (Divalproex Sodium 500 Mg Tablet.Dr) 1,000 mg PO BEDTIME [facility] Last Admin: 11/17/24 21:10 Dose: 1,000 mg Docusate Sodium (Docusate Sodium 100 Mg Capsule) 100 mg PO BID [facility] Last Admin: 11/18/24 08:54 Dose: 100 mg Fenofibrate (Fenofibrate 160 Mg Tablet) 160 mg PO DAILY [facility] Last Admin: 11/18/24 08:55 Dose: 160 mg Fluticasone Propionate (Fluticasone Propionate Nasal 16 Gm [place]) 1 spray NOSTRIL-B BEDTIME [facility] Last Admin: 11/17/24 21:09 Dose: 1 spray Hydroxyzine HCl (Hydroxyzine Hcl 25 Mg Tablet) 25 mg PO Q6H PRN PRN Reason: mild anxiety Last Admin: 11/17/24 01:36 Dose: 25 mg Hydroxyzine HCl (Hydroxyzine Hcl 50 Mg Tablet) 50 mg PO BID [facility] Last Admin: 11/18/24 08:55 Dose: 50 mg Lorazepam (Lorazepam 1 Mg Tablet) 1 mg PO Q8H PRN PRN Reason: Anxiety Last Admin: 11/18/24 08:55 Dose: 1 mg Magnesium Hydroxide (Milk Of Magnesia 30 Ml Oral.Susp) 30 ml PO DAILY PRN PRN Reason: Constipation Nicotine (Nicotine 21 Mg Patch.Td24) 21 mg TRANSDERMA DAILY PRN PRN Reason: smoking cessation Nicotine Polacrilex (Nicotine Polacrilex 2 Mg Gum) 4 mg BUCCAL Q2H PRN PRN Reason: Nicotine Cravings Olanzapine (Olanzapine 5 Mg Tablet) 5 mg PO TID PRN PRN Reason: agitation Last Admin: 11/17/24 21:11 Dose: 5 mg Risperidone (Risperidone 2 Mg Tablet) 4 mg PO BEDTIME [facility] Last Admin: 11/17/24 21:11 Dose: 4 mg Risperidone (Risperidone 1 Mg Tablet) 1 mg PO DAILY [facility] Last Admin: 11/18/24 08:55 Dose: 1 mg Trazodone HCl (Trazodone Hcl 50 Mg Tablet) 50 mg PO BEDTIME MRX1 PRN PRN Reason: Insomnia Last Admin: 11/17/24 21:11 Dose: 50 mg Allergies Allergies Allergy/AdvReac Type Severity Reaction Status Date / Time benztropine (From COGENTIN) Allergy Unknown UNKNOWN Verified 11/16/24 15:51 propranolol (From INDERAL [place]) Allergy Unknown UNKNOWN Verified 11/16/24 15:51 chaste tree Allergy Unknown Verified 11/16/24 15:51 lithium Allergy Unknown Verified 11/16/24 15:51 Assessment & Plan Assessment & Plan (1) Medical clearance for psychiatric admission: Status: Acute Code(s): Z00.8 - Encounter for other general examination (2) Class 3 obesity: Status: Acute Code(s): E66.813 - Obesity, class 3 Plan Patient is a 34-year-old male with history of schizoaffective disorder bipolar type, Autism Spectrum Disorder, who lives in a fpc, on a [facility] who presents for depression. Patient reports that every 7 weeks (and every 4 months) medications don't work...and I feel depressed.... He says the the depression last anywhere from 2 to 12 days.. And then resolves on it's own without medication changes. Patient reports that he had suicidal ideation a few days ago, no plan but does not now. Patient says sometimes he hears sounds or voices that others do not hear, sometimes laughing noise but not very often and usually just during sleep. Discussed medication regimen and patient said that recently his Depakote was increased because he was having mood swings but it was difficult for him to give details. Discussed medication options and patient agrees to increase Wellbutrin to 450 mg. Formulation/clinical reasoning: Patient reports that episodically he still gets bouts of depression that can last for longer than a week however this seemed to resolve on their own. He is not sure what triggers them. Patient says he is already feeling better now that he is on the unit because of the friendships and interactions he has made since coming to the unit; patient signed a 3 day notice. Discussed medication options and patient agrees to increase Wellbutrin to 450 mg. 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 -patient currently on 2 antipsychotics, including Clozaril and Risperdal; -some TD and pill rolling b/l hand tremor observed; wonder if Risperdal dose could be lowered; consider Aristeo Of note patient had severely high Triacylglycerides of 898. It appears to have been taken while patient fasting however patient is not sure. TAG this high puts patient at risk for pancreatitis. Will redraw labs tomorrow morning to ensure fasting however for now will treat as if this is an accurate lab Plan: Three day notice Q 15 minute checks 1. Depression: Increase Wellbutrin XL to 450 mg Continue Risperdal 1 mg a.m. and 4 mg q.h.s. Continue Clozaril 400 mg q.h.s.; get level Continue Depakote 1000 mg q.h.s.; get level START Fenobibrate 160mg daily for severely elevated Triacylglycerides of 898 (pt has normal renal function) Continue other home medications -consider Ingrezza 2. TAG 898 (appears to be fasting)/Cholesterol 319 re-order Lipid panel for tomorrow to ensure fasting lab value obtained (pt and nursing aware) Start Fenobibrate 160mg daily (pt has normal renal function) Change diet to Low Fat diet will consider Statin Ordered TSH (lft's WNL) hospitalist consult 11/18: Continue current management and treatment plan. Reason for continued inpatient stay Substantial Risk for: inability to function and rapid decompensation Time Spent With Patient Time: Total time managing care of this patient today ____ minutes.
[2024-11-18 09:34] LABS: Cholesterol 317 mg/dL (<200); HDL Cholesterol 33 mg/dL (>40); Triglycerides 581 mg/dL (<150)
[2024-11-18 20:00] VITALS: BP 148/71; PULSE 135; TEMP 36.3; O2SAT 96
[2024-11-19 08:00] VITALS: BP 112/66; PULSE 110; RESP 20; TEMP 36.4; O2SAT 95
[2024-11-19] MEDS: buPROPion HCl XL 300 MG TAB.ER.24H PO (08:03)
[2024-11-19] MEDS: buPROPion HCl XL 150 MG TAB.ER.24H PO (08:03)
--- NOTE | 2024-11-19 08:35 | HO.PSYCHPN ---
Subjective Subjective Date of Service: 11/19/24 Reason For Visit: Depressive D/O Schizoaffective Interim History: Patient is irritable today. He made a phone call and told someone he is being discharged and fixated on DC today. Remains hyperactive, intrusive. He is talkative. Fixated on Nintendo switch. Says he wants to leave today and take the bus to [place] so he can go to my apartment and that his family have arranged for him to have an apartment so he is not homeless. 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 His Depakote level was 56.5 on 11/18. Denies SI. Review of Systems Constitutional: Denies chills, Denies fatigue, Denies fever(s) and Denies headache(s) Eyes: Denies change in vision Denies headache(s), Denies nasal congestion and Denies sore throat Cardiovascular: Denies chest pain, Denies rapid heart rate, Denies leg edema and Denies dyspnea Respiratory: Denies chest congestion, Denies cough, Denies dyspnea and Denies wheezing Gastrointestinal: Denies abdominal pain, Denies nausea and Denies vomiting Genitourinary: Denies dysuria and Denies urinary urgency Musculoskeletal: Denies back pain Skin/Breast: Denies rash Denies confusion and Denies headache(s) Psychiatric: Denies confusion Endocrine: Denies fatigue Hematologic/Lymphatic: Denies easy bleeding and Denies easy bruising Allergic/Immunologic: Denies wheezing Mental Status Exam Mental Status Exam Narrative: Pt is alert and oriented; behavior is cooperative, friendly and calm; patient is not in distress; dressed in casual attire; marginal hygiene; bilateral pill rolling tremor; some tongue fasciculations/TD; mood is described as better and affect congruent; eye contact appropriate; Speech is increased rate, volume and prosody and pressured; restless; thought process is perseverative and goal directed; Thought content is on discharge; otherwise pertinent to relevant topics and grandiosity; denies any SI/HI. Patient reports intermittent AH but says it is infrequent; patient does not seem internally preoccupied. Patients insight and judgment improving. Diagnostics Vital Signs (24Hr): Vital Signs - 24 hr 11/18/24 20:00 11/19/24 08:00 Temperature 97.3 F 97.5 F Pulse Rate 135 H 110 H Respiratory Rate 20 Blood Pressure 148/71 H 112/66 Pulse Oximetry 96 95 Oxygen Delivery Method Room Air Room Air BMI result Body Mass Index 36.2 Labs 11/17/24 07:53 Labs: Laboratory Results - last 48 hr 11/18/24 11/18/24 08:42 08:43 Hold Purple Top SEE NOTE Triglycerides 581 H Cholesterol 317 H LDL Cholesterol, Calc TNP HDL Cholesterol 33 L TSH 0.81 Valproic Acid 56.5 Medications Medications Current Medications Acetaminophen (Acetaminophen 325 Mg Tablet) 650 mg PO Q6H PRN PRN Reason: Headache/Pain, Scale 1-10 Last Admin: 11/18/24 22:07 Dose: 650 mg Al Hydroxide/Mg Hydroxide (Magnesium Hydrox/Alum Hydrox 30 Ml Oral.Susp) 30 ml PO Q6H PRN PRN Reason: Heartburn/Nausea Bupropion HCl (Bupropion Hcl Xl 300 Mg Tab.Er.24h) 300 mg PO DAILY [facility] Last Admin: 11/19/24 08:03 Dose: 300 mg Bupropion HCl (Bupropion Hcl Xl 150 Mg Tab.Er.24h) 150 mg PO DAILY [facility] Last Admin: 11/19/24 08:03 Dose: 150 mg Capsaicin (Capsaicin 0.025% Cream 60 Gm Tube) 1 appl TOPICAL TID PRN; Protocol PRN Reason: leg pain Last Admin: 11/18/24 21:36 Dose: 1 appl Clonidine HCl (Clonidine Hcl 0.1 Mg Tablet) 0.1 mg PO Q4H PRN; Protocol PRN Reason: moderate anxiety Last Admin: 11/18/24 23:20 Dose: 0.1 mg Clozapine (Clozapine 100 Mg Tablet) 400 mg PO BEDTIME [facility] Last Admin: 11/18/24 21:26 Dose: 400 mg Divalproex Sodium (Divalproex Sodium 500 Mg Tablet.Dr) 1,000 mg PO BEDTIME [facility] Last Admin: 11/18/24 21:26 Dose: 1,000 mg Docusate Sodium (Docusate Sodium 100 Mg Capsule) 100 mg PO BID [facility] Last Admin: 11/19/24 08:03 Dose: 100 mg Fenofibrate (Fenofibrate 160 Mg Tablet) 160 mg PO DAILY [facility] Last Admin: 11/19/24 08:03 Dose: 160 mg Fluticasone Propionate (Fluticasone Propionate Nasal 16 Gm [place]) 1 spray NOSTRIL-B BEDTIME [facility] Last Admin: 11/18/24 21:26 Dose: 1 spray Hydroxyzine HCl (Hydroxyzine Hcl 25 Mg Tablet) 25 mg PO Q6H PRN PRN Reason: mild anxiety Last Admin: 11/18/24 21:28 Dose: 25 mg Hydroxyzine HCl (Hydroxyzine Hcl 50 Mg Tablet) 50 mg PO BID [facility] Last Admin: 11/19/24 08:03 Dose: 50 mg Ibuprofen (Ibuprofen 400 Mg Tablet) 400 mg PO Q6H PRN PRN Reason: Pain, Moderate(Pain Scale 4-6) Last Admin: 11/18/24 13:38 Dose: 400 mg Lorazepam (Lorazepam 1 Mg Tablet) 1 mg PO Q8H PRN PRN Reason: Anxiety Last Admin: 11/19/24 08:03 Dose: 1 mg Magnesium Hydroxide (Milk Of Magnesia 30 Ml Oral.Susp) 30 ml PO DAILY PRN PRN Reason: Constipation Nicotine (Nicotine 21 Mg Patch.Td24) 21 mg TRANSDERMA DAILY PRN PRN Reason: smoking cessation Nicotine Polacrilex (Nicotine Polacrilex 2 Mg Gum) 4 mg BUCCAL Q2H PRN PRN Reason: Nicotine Cravings Olanzapine (Olanzapine 5 Mg Tablet) 5 mg PO TID PRN PRN Reason: agitation Last Admin: 11/19/24 08:03 Dose: 5 mg Risperidone (Risperidone 2 Mg Tablet) 4 mg PO BEDTIME [facility] Last Admin: 11/18/24 21:26 Dose: 4 mg Risperidone (Risperidone 1 Mg Tablet) 1 mg PO DAILY [facility] Last Admin: 11/19/24 08:03 Dose: 1 mg Trazodone HCl (Trazodone Hcl 50 Mg Tablet) 50 mg PO BEDTIME MRX1 PRN PRN Reason: Insomnia Last Admin: 11/19/24 01:23 Dose: 50 mg Allergies Allergies Allergy/AdvReac Type Severity Reaction Status Date / Time benztropine (From COGENTIN) Allergy Unknown UNKNOWN Verified 11/16/24 15:51 propranolol (From INDERAL LA) Allergy Unknown UNKNOWN Verified 11/16/24 15:51 chaste tree Allergy Unknown Verified 11/16/24 15:51 lithium Allergy Unknown Verified 11/16/24 15:51 Assessment & Plan Assessment & Plan (1) Medical clearance for psychiatric admission: Status: Acute Code(s): Z00.8 - Encounter for other general examination (2) Class 3 obesity: Status: Acute Code(s): E66.813 - Obesity, class 3 Plan Patient is a 34-year-old male with history of schizoaffective disorder bipolar type, Autism Spectrum Disorder, who lives in a shelter, [place] a [facility] [place] who presents for depression. Patient reports that every 7 weeks (and every 4 months) medications don't work...and I feel depressed.... He says the the depression last anywhere from 2 to 12 days.. And then resolves on it's own without medication changes. Patient reports that he had suicidal ideation a few days ago, no plan but does not now. Patient says sometimes he hears sounds or voices that others do not hear, sometimes laughing noise but not very often and usually just during sleep. Discussed medication regimen and patient said that recently his Depakote was increased because he was having mood swings but it was difficult for him to give details. Discussed medication options and patient agrees to increase Wellbutrin to 450 mg. Formulation/clinical reasoning: Patient reports that episodically he still gets bouts of depression that can last for longer than a week however this seemed to resolve on their own. He is not sure what triggers them. Patient says he is already feeling better now that he is on the unit because of the friendships and interactions he has made since coming to the unit; patient signed a 3 day notice. Discussed medication options and patient agrees to increase Wellbutrin to 450 mg. Train Dispatcher wonders if perhaps patient can remain at Wellbutrin 300 mg and just take the extra 150 mg if he starts to feel depressed, sort of as an episodic p.r.n. -patient currently on 2 antipsychotics, including Clozaril and Risperdal; -some TD and pill rolling b/l hand tremor observed; wonder if Risperdal dose could be lowered; consider Ingrezza Of note patient had severely high Triacylglycerides of 898. It appears to have been taken while patient fasting however patient is not sure. TAG this high puts patient at risk for pancreatitis. Will redraw labs tomorrow morning to ensure fasting however for now will treat as if this is an accurate lab Plan: Three day notice Q 15 minute checks 1. Depression: Increase Wellbutrin XL to 450 mg Continue Risperdal 1 mg a.m. and 4 mg q.h.s. Continue Clozaril 400 mg q.h.s.; get level Continue Depakote 1000 mg q.h.s.; get level START Fenobibrate 160mg daily for severely elevated Triacylglycerides of 898 (pt has normal renal function) Continue other home medications -consider Ingrezza 2. TAG 898 (appears to be fasting)/Cholesterol 319 re-order Lipid panel for tomorrow to ensure fasting lab value obtained (pt and nursing aware) Start Fenobibrate 160mg daily (pt has normal renal function) Change diet to Low Fat diet will consider Statin Ordered TSH (lft's WNL) hospitalist consult 11/18: Continue current management and treatment plan. 11/19: Increase Depakote to 500 mg in AM and continue 1,000 mg HS. Reason for continued inpatient stay Substantial Risk for: harm to self, inability to function and rapid decompensation Time Spent With Patient Time: Total time managing care of this patient today ____ minutes.
[2024-11-19 10:56] VITALS: BP 116/68
[2024-11-19] MEDS: OLANZapine ODT 10 MG TAB.RAPDIS TRANSLINGU (11:03)
[2024-11-19 19:58] VITALS: BP 123/75; PULSE 112; RESP 18; TEMP 36.4; O2SAT 97
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
[2024-11-20] MEDS: buPROPion HCl XL 150 MG TAB.ER.24H PO (08:27)
[2024-11-20] MEDS: buPROPion HCl XL 300 MG TAB.ER.24H PO (08:27)
--- NOTE | 2024-11-20 09:40 | HO.PSYCHPN ---
Subjective Subjective Date of Service: 11/20/24 Reason For Visit: Depressive D/O Schizoaffective Interim History: Patient seen. Says he slept better last night and he is feeling in a better mood. Less dysregulated today. Calmer. Not as perseverative. Still pressured but less than yesterday. He denies side effects with the increase in Depakote. He also says he had a BM and that helped his mood. Denies SI/HI/AVH. Review of Systems Constitutional: Denies chills, Denies fatigue, Denies fever(s) and Denies headache(s) Eyes: Denies change in vision Denies headache(s), Denies nasal congestion and Denies sore throat Cardiovascular: Denies chest pain, Denies rapid heart rate, Denies leg edema and Denies dyspnea Respiratory: Denies chest congestion, Denies cough, Denies dyspnea and Denies wheezing Gastrointestinal: Denies abdominal pain, Denies nausea and Denies vomiting Genitourinary: Denies dysuria and Denies urinary urgency Musculoskeletal: Denies back pain Skin/Breast: Denies rash Denies confusion and Denies headache(s) Psychiatric: Denies confusion Endocrine: Denies fatigue Hematologic/Lymphatic: Denies easy bleeding and Denies easy bruising Allergic/Immunologic: Denies wheezing Mental Status Exam Mental Status Exam Narrative: Pt is alert and oriented; behavior is cooperative, friendly and calm; patient is not in distress; dressed in casual attire; marginal hygiene; bilateral pill rolling tremor; some tongue fasciculations/TD; mood is described as better and affect congruent; eye contact appropriate; Speech is increased rate, volume and prosody and pressured; restless; thought process is perseverative and goal directed; Thought content is on discharge; otherwise pertinent to relevant topics and grandiosity; denies any SI/HI. Patient reports intermittent AH but says it is infrequent; patient does not seem internally preoccupied. Patients insight and judgment improving. Diagnostics Vital Signs (24Hr): Vital Signs - 24 hr 11/19/24 10:56 11/19/24 19:58 Temperature 97.6 F Pulse Rate 112 H Respiratory Rate 18 Blood Pressure 116/68 123/75 Pulse Oximetry 97 Oxygen Delivery Method Room Air BMI result Body Mass Index 36.2 Labs 11/17/24 07:53 Labs: Laboratory Results - last 48 hr 11/18/24 08:43 TSH 0.81 Medications Medications Current Medications Acetaminophen (Acetaminophen 325 Mg Tablet) 650 mg PO Q6H PRN PRN Reason: Headache/Pain, Scale 1-10 Last Admin: 11/20/24 09:04 Dose: 650 mg Al Hydroxide/Mg Hydroxide (Magnesium Hydrox/Alum Hydrox 30 Ml Oral.Susp) 30 ml PO Q6H PRN PRN Reason: Heartburn/Nausea Bupropion HCl (Bupropion Hcl Xl 300 Mg Tab.Er.24h) 300 mg PO DAILY [facility] Last Admin: 11/20/24 08:27 Dose: 300 mg Bupropion HCl (Bupropion Hcl Xl 150 Mg Tab.Er.24h) 150 mg PO DAILY [facility] Last Admin: 11/20/24 08:27 Dose: 150 mg Capsaicin (Capsaicin 0.025% Cream 60 Gm Tube) 1 appl TOPICAL TID PRN; Protocol PRN Reason: leg pain Last Admin: 11/20/24 09:07 Dose: 1 appl Clonidine HCl (Clonidine Hcl 0.1 Mg Tablet) 0.1 mg PO Q4H PRN; Protocol PRN Reason: moderate anxiety Last Admin: 11/19/24 21:31 Dose: 0.1 mg Clozapine (Clozapine 100 Mg Tablet) 400 mg PO BEDTIME [facility] Last Admin: 11/19/24 21:27 Dose: 400 mg Divalproex Sodium (Divalproex Sodium 500 Mg Tablet.) 1,000 mg PO BEDTIME [facility] Last Admin: 11/19/24 21:27 Dose: 1,000 mg Divalproex Sodium (Divalproex Sodium 500 Mg Tablet.) 500 mg PO DAILY [facility] Last Admin: 11/20/24 08:27 Dose: 500 mg Docusate Sodium (Docusate Sodium 100 Mg Capsule) 100 mg PO BID [facility] Last Admin: 11/20/24 08:27 Dose: 100 mg Fenofibrate (Fenofibrate 160 Mg Tablet) 160 mg PO DAILY [facility] Last Admin: 11/20/24 08:26 Dose: 160 mg Fluticasone Propionate (Fluticasone Propionate Nasal 16 Gm [place]) 1 spray NOSTRIL-B BEDTIME [facility] Last Admin: 11/19/24 23:31 Dose: 1 spray Fluticasone Propionate (Fluticasone Propionate Nasal 16 Gm [place]) 1 spray NOSTRIL-B DAILY PRN PRN Reason: Nasal allergy Last Admin: 11/20/24 09:07 Dose: 1 spray Hydroxyzine HCl (Hydroxyzine Hcl 25 Mg Tablet) 25 mg PO Q6H PRN PRN Reason: mild anxiety Last Admin: 11/18/24 21:28 Dose: 25 mg Hydroxyzine HCl (Hydroxyzine Hcl 50 Mg Tablet) 50 mg PO BID [facility] Last Admin: 11/20/24 08:26 Dose: 50 mg Ibuprofen (Ibuprofen 400 Mg Tablet) 400 mg PO Q6H PRN PRN Reason: Pain, Moderate(Pain Scale 4-6) Last Admin: 11/19/24 21:28 Dose: 400 mg Lorazepam (Lorazepam 1 Mg Tablet) 1 mg PO Q8H PRN PRN Reason: Anxiety Last Admin: 11/19/24 23:45 Dose: 1 mg Magnesium Hydroxide (Milk Of Magnesia 30 Ml Oral.Susp) 30 ml PO DAILY PRN PRN Reason: Constipation Nicotine (Nicotine 21 Mg Patch.Td24) 21 mg TRANSDERMA DAILY PRN PRN Reason: smoking cessation Nicotine Polacrilex (Nicotine Polacrilex 2 Mg Gum) 4 mg BUCCAL Q2H PRN PRN Reason: Nicotine Cravings Last Admin: 11/19/24 21:31 Dose: 4 mg Olanzapine (Olanzapine 5 Mg Tablet) 5 mg PO TID PRN PRN Reason: agitation Last Admin: 11/19/24 23:45 Dose: 5 mg Risperidone (Risperidone 2 Mg Tablet) 4 mg PO BEDTIME [facility] Last Admin: 11/19/24 21:30 Dose: 4 mg Risperidone (Risperidone 1 Mg Tablet) 1 mg PO DAILY [facility] Last Admin: 11/20/24 08:26 Dose: 1 mg Trazodone HCl (Trazodone Hcl 50 Mg Tablet) 50 mg PO BEDTIME MRX1 PRN PRN Reason: Insomnia Last Admin: 11/19/24 01:23 Dose: 50 mg Allergies Allergies Allergy/AdvReac Type Severity Reaction Status Date / Time benztropine (From COGENTIN) Allergy Unknown UNKNOWN Verified 11/16/24 15:51 propranolol (From INDERAL LA) Allergy Unknown UNKNOWN Verified 11/16/24 15:51 chaste tree Allergy Unknown Verified 11/16/24 15:51 lithium Allergy Unknown Verified 11/16/24 15:51 Assessment & Plan Assessment & Plan (1) Medical clearance for psychiatric admission: Status: Acute Code(s): Z00.8 - Encounter for other general examination (2) Class 3 obesity: Status: Acute Code(s): E66.813 - Obesity, class 3 Plan Patient is a 34-year-old male with history of schizoaffective disorder bipolar type, Autism Spectrum Disorder, who [facility] a [facility], on a community [place] who presents for depression. Patient reports that every 7 weeks (and every 4 months) medications don't work...and I feel depressed.... He says the the depression last anywhere from 2 to 12 days.. And then resolves on it's own without medication changes. Patient reports that he had suicidal ideation a few days ago, no plan but does not now. Patient says sometimes he hears sounds or voices that others do not hear, sometimes laughing noise but not very often and usually just during sleep. Discussed medication regimen and patient said that recently his Depakote was increased because he was having mood swings but it was difficult for him to give details. Discussed medication options and patient agrees to increase Wellbutrin to 450 mg. Formulation/clinical reasoning: Patient reports that episodically he still gets bouts of depression that can last for longer than a week however this seemed to resolve on their own. He is not sure what triggers them. Patient says he is already feeling better now that he is on the unit because of the friendships and interactions he has made since coming to the unit; patient signed a 3 day notice. Discussed medication options and patient agrees to increase Wellbutrin to 450 mg. Network Manager wonders if perhaps patient can remain at Wellbutrin 300 mg and just take the extra 150 mg if he starts to feel depressed, sort of as an episodic p.r.n. -patient currently on 2 antipsychotics, including Clozaril and Risperdal; -some TD and pill rolling b/l hand tremor observed; wonder if Risperdal dose could be lowered; consider Ingrezza Of note patient had severely high Triacylglycerides of 898. It appears to have been taken while patient fasting however patient is not sure. TAG this high puts patient at risk for pancreatitis. Will redraw labs tomorrow morning to ensure fasting however for now will treat as if this is an accurate lab Plan: Three day notice Q 15 minute checks 1. Depression: Increase Wellbutrin XL to 450 mg Continue Risperdal 1 mg a.m. and 4 mg q.h.s. Continue Clozaril 400 mg q.h.s.; get level Continue Depakote 1000 mg q.h.s.; get level START Fenobibrate 160mg daily for severely elevated Triacylglycerides of 898 (pt has normal renal function) Continue other home medications -consider Ingrezza 2. TAG 898 (appears to be fasting)/Cholesterol 319 re-order Lipid panel for tomorrow to ensure fasting lab value obtained (pt and nursing aware) Start Fenobibrate 160mg daily (pt has normal renal function) Change diet to Low Fat diet will consider Statin Ordered TSH (lft's WNL) hospitalist consult 11/18: Continue current management and treatment plan. 11/19: Increase Depakote to 500 mg in AM and continue 1,000 mg HS. 11/20: continue current management and treatment plan. Reason for continued inpatient stay Substantial Risk for: inability to function and rapid decompensation Time Spent With Patient Time: Total time managing care of this patient today ____ minutes.
[2024-11-20 20:28] VITALS: BP 128/84; PULSE 84; RESP 20; TEMP 36.4; O2SAT 96
[2024-11-21] MEDS: Magnesium Hydrox/Alum Hydrox 30 ML ORAL.SUSP PO (01:55)
[2024-11-21 07:55] VITALS: BP 141/80; PULSE 84; RESP 20; TEMP 36.2; O2SAT 96
[2024-11-21] MEDS: buPROPion HCl XL 300 MG TAB.ER.24H PO (09:03)
[2024-11-21] MEDS: buPROPion HCl XL 150 MG TAB.ER.24H PO (09:03)
--- NOTE | 2024-11-21 09:49 | P.PNPSI_ITS ---
Subjective Subjective Date of Service: 11/21/24 Reason For Visit: Depressive D/O Schizoaffective Interim History: met with patient; discussed with team; reviewed chart Patient has become manic over the past several days. Additional Depakote dose was added but patient remains manic, grandiose, labile and intrusive. 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 Patient at 1 point broke down crying about the of his parents, saying that his mother was murdered but then saying she had a brain bleed.. Patient saying that he is from [place] and is going to go back and live his life and [place]... Initially demanding to be discharged today but was able to be redirected. Patient agrees to increased medications including adding Zyprexa Mental Status Exam Mental Status Exam Narrative: Pt is alert and oriented; behavior is manic, hyperverbal, intrusive with peers and staff, intermittently demanding, labile; patient is not in distress; dressed in casual attire, unkempt; bilateral hand tremor; marginal hygiene; mood is described as good and affect labile or expansive; eye contact appropriate; Speech pressured and rambling, sometimes loud; psychomotor agitation present; thought process can be goal oriented but distracted and tangential; Thought content is on grandiose delusions; denies any SI/HI. Denies AVH Patients insight and judgment impaired Diagnostics Vital Signs (24Hr): Vital Signs - 24 hr 11/20/24 20:28 11/21/24 07:55 Temperature 97.5 F 97.2 F Pulse Rate 84 84 Respiratory Rate 20 20 Blood Pressure 128/84 141/80 H Pulse Oximetry 96 96 Oxygen Delivery Method Room Air Room Air BMI result Body Mass Index 36.2 Labs 11/17/24 07:53 Medications Medications Current Medications Acetaminophen (Acetaminophen 325 Mg Tablet) 650 mg PO Q6H PRN PRN Reason: Headache/Pain, Scale 1-10 Last Admin: 11/21/24 05:56 Dose: 650 mg Al Hydroxide/Mg Hydroxide (Magnesium Hydrox/Alum Hydrox 30 Ml Oral.Susp) 30 ml PO Q6H PRN PRN Reason: Heartburn/Nausea Last Admin: 11/21/24 01:55 Dose: 30 ml Bupropion HCl (Bupropion Hcl Xl 300 Mg Tab.Er.24h) 300 mg PO DAILY [facility] Last Admin: 11/21/24 09:03 Dose: 300 mg Bupropion HCl (Bupropion Hcl Xl 150 Mg Tab.Er.24h) 150 mg PO DAILY [facility] Last Admin: 11/21/24 09:03 Dose: 150 mg Capsaicin (Capsaicin 0.025% Cream 60 Gm Tube) 1 appl TOPICAL TID PRN; Protocol PRN Reason: leg pain Last Admin: 11/21/24 01:16 Dose: 1 appl Clonidine HCl (Clonidine Hcl 0.1 Mg Tablet) 0.1 mg PO Q4H PRN; Protocol PRN Reason: moderate anxiety Last Admin: 11/19/24 21:31 Dose: 0.1 mg Clozapine (Clozapine 100 Mg Tablet) 400 mg PO BEDTIME [facility] Last Admin: 11/20/24 20:31 Dose: 400 mg Divalproex Sodium (Divalproex Sodium 500 Mg Tablet.) 1,000 mg PO BEDTIME [facility] Last Admin: 11/20/24 20:32 Dose: 1,000 mg Divalproex Sodium (Divalproex Sodium 500 Mg Tablet.) 500 mg PO DAILY [facility] Last Admin: 11/21/24 09:02 Dose: 500 mg Docusate Sodium (Docusate Sodium 100 Mg Capsule) 100 mg PO BID [facility] Last Admin: 11/21/24 09:04 Dose: 100 mg Fenofibrate (Fenofibrate 160 Mg Tablet) 160 mg PO DAILY [facility] Last Admin: 11/21/24 09:04 Dose: 160 mg Fluticasone Propionate (Fluticasone Propionate Nasal 16 Gm [place]) 1 spray NOSTRIL-B BEDTIME [facility] Last Admin: 11/20/24 20:36 Dose: 1 spray Fluticasone Propionate (Fluticasone Propionate Nasal 16 Gm [place]) 1 spray NOSTRIL-B DAILY PRN PRN Reason: Nasal allergy Last Admin: 11/20/24 09:07 Dose: 1 spray Hydroxyzine HCl (Hydroxyzine Hcl 25 Mg Tablet) 25 mg PO Q6H PRN PRN Reason: mild anxiety Last Admin: 11/18/24 21:28 Dose: 25 mg Hydroxyzine HCl (Hydroxyzine Hcl 50 Mg Tablet) 50 mg PO BID [facility] Last Admin: 11/21/24 09:03 Dose: 50 mg Ibuprofen (Ibuprofen 400 Mg Tablet) 400 mg PO Q6H PRN PRN Reason: Pain, Moderate(Pain Scale 4-6) Last Admin: 11/20/24 14:18 Dose: 400 mg Lorazepam (Lorazepam 1 Mg Tablet) 1 mg PO Q8H PRN PRN Reason: Anxiety Last Admin: 11/21/24 01:07 Dose: 1 mg Magnesium Hydroxide (Milk Of Magnesia 30 Ml Oral.Susp) 30 ml PO DAILY PRN PRN Reason: Constipation Nicotine (Nicotine 21 Mg Patch.Td24) 21 mg TRANSDERMA DAILY PRN PRN Reason: smoking cessation Nicotine Polacrilex (Nicotine Polacrilex 2 Mg Gum) 4 mg BUCCAL Q2H PRN PRN Reason: Nicotine Cravings Last Admin: 11/21/24 09:37 Dose: 4 mg Olanzapine (Olanzapine 5 Mg Tablet) 5 mg PO TID PRN PRN Reason: agitation Last Admin: 11/19/24 23:45 Dose: 5 mg Risperidone (Risperidone 2 Mg Tablet) 4 mg PO BEDTIME [facility] Last Admin: 11/20/24 20:35 Dose: 4 mg Risperidone (Risperidone 1 Mg Tablet) 1 mg PO DAILY [facility] Last Admin: 11/21/24 09:03 Dose: 1 mg Trazodone HCl (Trazodone Hcl 50 Mg Tablet) 50 mg PO BEDTIME MRX1 PRN PRN Reason: Insomnia Last Admin: 11/21/24 01:07 Dose: 50 mg Allergies Allergies Allergy/AdvReac Type Severity Reaction Status Date / Time benztropine (From COGENTIN) Allergy Unknown UNKNOWN Verified 11/16/24 15:51 propranolol (From INDERAL LA) Allergy Unknown UNKNOWN Verified 11/16/24 15:51 chaste tree Allergy Unknown Verified 11/16/24 15:51 lithium Allergy Unknown Verified 11/16/24 15:51 Assessment & Plan Assessment & Plan (1) Medical clearance for psychiatric admission: Status: Acute Code(s): Z00.8 - Encounter for other general examination (2) Class 3 obesity: Status: Acute Code(s): E66.813 - Obesity, class 3 Plan Patient is a 34-year-old male with history of schizoaffective disorder bipolar type, Autism Spectrum Disorder, who lives in a senior living, on a [facility] who presents for depression. Patient reports that every 7 weeks (and every 4 months) medications don't work...and I feel depressed.... He says the the depression last anywhere from 2 to 12 days.. And then resolves on it's own without medication changes. Patient reports that he had suicidal ideation a few days ago, no plan but does not now. Patient says sometimes he hears sounds or voices that others do not hear, sometimes laughing noise but not very often and usually just during sleep. Discussed medication regimen and patient said that recently his Depakote was increased because he was having mood swings but it was difficult for him to give details. Discussed medication options and patient agrees to increase Wellbutrin to 450 mg. Formulation/clinical reasoning: Patient reports that episodically he still gets bouts of depression that can last for longer than a week however this seemed to resolve on their own. He is not sure what triggers them. Patient says he is already feeling better now that he is on the unit because of the friendships and interactions he has made since coming to the unit; patient signed a 3 day notice. Discussed medication options and patient agrees to increase Wellbutrin to 450 mg. Information Technology Analyst wonders if perhaps patient can remain at Wellbutrin 300 mg and just take the extra 150 mg if he starts to feel depressed, sort of as an episodic p.r.n. -patient currently on 2 antipsychotics, including Clozaril and Risperdal; -some TD and pill rolling b/l hand tremor observed; wonder if Risperdal dose could be lowered; consider Ingrezza Of note patient had severely high Triacylglycerides of 898. It appears to have been taken while patient fasting however patient is not sure. TAG this high puts patient at risk for pancreatitis. Will redraw labs tomorrow morning to ensure fasting however for now will treat as if this is an accurate lab Hospital course: 11/18: Continue current management and treatment plan. 11/19: Increase Depakote to 500 mg in AM and continue 1,000 mg HS. 11/20: continue current management and treatment plan. 11/21 Patient has become manic over the past several days. Additional Depakote dose was added but patient remains manic, grandiose, labile and intrusive. 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 Patient at 1 point broke down crying about the of his parents, saying that his mother was murdered but then saying she had a brain bleed.. Patient saying that he is from [place] and is going to go back and live his life and [place]... Initially demanding to be discharged today but was able to be redirected. Patient agrees to increased medications including adding Zyprexa -will hold Wellbutrin; seems likely that increasing Wellbutrin was what triggered manic episode -Increasing bedtime Depakote to 1250 mg -patient hardly slept last night and added Zyprexa 10 mg b.i.d.; plan is to discontinue once pam subsides -reviewed labs and repeat cholesterol shows highly elevated TAG>500 though not as high as the day before Plan: Three day notice Q 15 minute checks 1. Pam HOLD Wellbutrin XL to 450 mg; once pam has suicide will go back to titrating to Wellbutrin 300mg (seems likely that increasing Wellbutrin to 450mg was what triggered manic episode) Added Zyprexa 10 mg b.i.d.; plan is to discontinue once pam subsides Added Depakote 500mg daily (recently added over weekend) Increase to Depakote 1250 mg q.h.s.; level obtained and low therapeutic range Continue Risperdal 1 mg a.m. and 4 mg q.h.s. Continue Clozaril 400 mg q.h.s.; get level START Fenobibrate 160mg daily for severely elevated Triacylglycerides of 898 (pt has normal renal function) Continue other home medications -consider Ingrezza 2. TAG 898 (appears to be fasting)/Cholesterol 319 re-order Lipid panel for tomorrow to ensure fasting lab value obtained (pt and nursing aware) Start Fenobibrate 160mg daily (pt has normal renal function) Change diet to Low Fat diet will consider Statin Ordered TSH (lft's WNL) hospitalist consult Patient educated on: diagnosis and medication risk/benefits Informed Consent: understands, does not understand and further education needed Reason for continued inpatient stay Substantial Risk for: inability to function Time Spent With Patient Time: Total time managing care of this patient today ____ minutes.
[2024-11-21] MEDS: OLANZapine ODT 10 MG TAB.RAPDIS TRANSLINGU (11:19)
[2024-11-21 13:12] VITALS: BP 131/64; PULSE 125
[2024-11-21 19:11] VITALS: BP 130/81; PULSE 126; RESP 20; TEMP 36.4; O2SAT 96
[2024-11-21 22:56] VITALS: BP 138/81; PULSE 126; RESP 18; TEMP 36.4; O2SAT 96
[2024-11-22 08:00] VITALS: RESP 18
--- NOTE | 2024-11-22 09:53 | HO.PSYCHPN ---
Subjective Subjective Date of Service: 11/22/24 Reason For Visit: Depressive D/O Schizoaffective Interim History: met with patient; discussed with team Patient did sleep some last night with added Zyprexa. Still manic but a little less intense and though still with some grandiose ideations, much less so. Patient still intrusive to others but redirectable. Patient did agree that he was acting manic yesterday but says he is fine now and wants to discharge. He persisted in demanding for discharge today and expressed frustration when told this is not possible but remained in behavioral control. Great right toe with cellulitis; started on Keflex Mental Status Exam Mental Status Exam Narrative: Pt is alert and oriented; behavior is still manic but a little less intense; still, hyperverbal and can be intrusive with peers and staff, intermittently demanding but overall more redirectable; patient is not in distress; dressed in casual attire, unkempt; bilateral hand tremor; marginal hygiene; mood is described as good and affect somewhat expansive; eye contact appropriate; Speech still pressured but less so and not rambling as much; moderate psychomotor agitation present; thought process can be goal oriented but distracted; Thought content still with some grandiose delusions but less so; denies any SI/HI. Denies AVH Patients insight and judgment impaired Diagnostics Vital Signs (24Hr): Vital Signs - 24 hr 11/21/24 13:12 11/21/24 19:11 11/21/24 22:56 Temperature 97.5 F 97.5 F Pulse Rate 125 H 126 H 126 H Respiratory Rate 20 18 Blood Pressure 131/64 130/81 138/81 Pulse Oximetry 96 96 Oxygen Delivery Method Room Air BMI result Body Mass Index 36.2 Labs 11/17/24 07:53 Medications Medications Current Medications Acetaminophen (Acetaminophen 325 Mg Tablet) 650 mg PO Q6H PRN PRN Reason: Headache/Pain, Scale 1-10 Last Admin: 11/21/24 05:56 Dose: 650 mg Al Hydroxide/Mg Hydroxide (Magnesium Hydrox/Alum Hydrox 30 Ml Oral.Susp) 30 ml PO Q6H PRN PRN Reason: Heartburn/Nausea Last Admin: 11/21/24 01:55 Dose: 30 ml Bupropion HCl (Bupropion Hcl Xl 300 Mg Tab.Er.24h) 300 mg PO DAILY [facility] On Hold: 11/21/24 09:50 Last Admin: 11/21/24 09:03 Dose: 300 mg Capsaicin (Capsaicin 0.025% Cream 60 Gm Tube) 1 appl TOPICAL TID PRN; Protocol PRN Reason: leg pain Last Admin: 11/21/24 01:16 Dose: 1 appl Clonidine HCl (Clonidine Hcl 0.1 Mg Tablet) 0.1 mg PO Q4H PRN; Protocol PRN Reason: moderate anxiety Last Admin: 11/21/24 19:13 Dose: 0.1 mg Clozapine (Clozapine 100 Mg Tablet) 400 mg PO BEDTIME [facility] Last Admin: 11/21/24 21:48 Dose: 400 mg Divalproex Sodium (Divalproex Sodium 500 Mg Tablet.Dr) 500 mg PO DAILY [facility] Last Admin: 11/21/24 09:02 Dose: 500 mg Divalproex Sodium (Divalproex Sodium 250 Mg Tablet.) 1,250 mg PO BEDTIME [facility] Last Admin: 11/21/24 21:48 Dose: 1,250 mg Docusate Sodium (Docusate Sodium 100 Mg Capsule) 100 mg PO BID [facility] Last Admin: 11/21/24 22:55 Dose: 100 mg Fenofibrate (Fenofibrate 160 Mg Tablet) 160 mg PO DAILY [facility] Last Admin: 11/21/24 09:04 Dose: 160 mg Fluticasone Propionate (Fluticasone Propionate Nasal 16 Gm [place]) 1 spray NOSTRIL-B BEDTIME [facility] Last Admin: 11/21/24 21:52 Dose: 1 spray Fluticasone Propionate (Fluticasone Propionate Nasal 16 Gm [place]) 1 spray NOSTRIL-B DAILY PRN PRN Reason: Nasal allergy Last Admin: 11/20/24 09:07 Dose: 1 spray Hydroxyzine HCl (Hydroxyzine Hcl 25 Mg Tablet) 25 mg PO Q6H PRN PRN Reason: mild anxiety Last Admin: 11/21/24 19:13 Dose: 25 mg Hydroxyzine HCl (Hydroxyzine Hcl 50 Mg Tablet) 50 mg PO BID [facility] Last Admin: 11/21/24 21:49 Dose: 50 mg Ibuprofen (Ibuprofen 400 Mg Tablet) 400 mg PO Q6H PRN PRN Reason: Pain, Moderate(Pain Scale 4-6) Last Admin: 11/21/24 17:35 Dose: 400 mg Lorazepam (Lorazepam 1 Mg Tablet) 1 mg PO Q8H PRN PRN Reason: Anxiety Last Admin: 11/21/24 12:29 Dose: 1 mg Magnesium Hydroxide (Milk Of Magnesia 30 Ml Oral.Susp) 30 ml PO DAILY PRN PRN Reason: Constipation Nicotine (Nicotine 21 Mg Patch.Td24) 21 mg TRANSDERMA DAILY PRN PRN Reason: smoking cessation Nicotine Polacrilex (Nicotine Polacrilex 2 Mg Gum) 4 mg BUCCAL Q2H PRN PRN Reason: Nicotine Cravings Last Admin: 11/21/24 21:54 Dose: 4 mg Olanzapine (Olanzapine 5 Mg Tablet) 5 mg PO TID PRN PRN Reason: agitation Last Admin: 11/21/24 15:30 Dose: 5 mg Olanzapine (Olanzapine 10 Mg Tablet) 10 mg PO BID [facility] Last Admin: 11/21/24 21:48 Dose: 10 mg Risperidone (Risperidone 2 Mg Tablet) 4 mg PO BEDTIME [facility] Last Admin: 11/21/24 21:49 Dose: 4 mg Risperidone (Risperidone 1 Mg Tablet) 1 mg PO DAILY [facility] Last Admin: 11/21/24 09:03 Dose: 1 mg Trazodone HCl (Trazodone Hcl 50 Mg Tablet) 50 mg PO BEDTIME MRX1 PRN PRN Reason: Insomnia Last Admin: 11/21/24 01:07 Dose: 50 mg Allergies Allergies Allergy/AdvReac Type Severity Reaction Status Date / Time benztropine (From [facility]) Allergy Unknown UNKNOWN Verified 11/16/24 15:51 propranolol (From INDERAL [place]) Allergy Unknown UNKNOWN Verified 11/16/24 15:51 chaste tree Allergy Unknown Verified 11/16/24 15:51 lithium Allergy Unknown Verified 11/16/24 15:51 Assessment & Plan Assessment & Plan (1) Schizoaffective disorder, bipolar type: Status: Acute Code(s): F25.0 - Schizoaffective disorder, bipolar type (2) Autism spectrum disorder: Status: Acute Code(s): F84.0 - Autistic disorder (3) Cellulitis: Status: Acute Code(s): L03.90 - Cellulitis, unspecified (4) Class 3 obesity: Status: Acute Code(s): E66.813 - Obesity, class 3 Plan Patient is a 34-year-old male with history of schizoaffective disorder bipolar type, Autism Spectrum Disorder, who lives in a intermediate, on a [facility] who presents for depression. Patient reports that every 7 weeks (and every 4 months) medications don't work...and I feel depressed.... He says the the depression last anywhere from 2 to 12 days.. And then resolves on it's own without medication changes. Patient reports that he had suicidal ideation a few days ago, no plan but does not now. Patient says sometimes he hears sounds or voices that others do not hear, sometimes laughing noise but not very often and usually just during sleep. Discussed medication regimen and patient said that recently his Depakote was increased because he was having mood swings but it was difficult for him to give details. Discussed medication options and patient agrees to increase Wellbutrin to 450 mg. Formulation/clinical reasoning: Patient reports that episodically he still gets bouts of depression that can last for longer than a week however this seemed to resolve on their own. He is not sure what triggers them. Patient says he is already feeling better now that he is on the unit because of the friendships and interactions he has made since coming to the unit; patient signed a 3 day notice. Discussed medication options and patient agrees to increase Wellbutrin to 450 mg. Ventilating Engineer wonders if perhaps patient can remain at Wellbutrin 300 mg and just take the extra 150 mg if he starts to feel depressed, sort of as an episodic p.r.n. -patient currently on 2 antipsychotics, including Clozaril and Risperdal; -some TD and pill rolling b/l hand tremor observed; wonder if Risperdal dose could be lowered; consider Aristeo Of note patient had severely high Triacylglycerides of 898. It appears to have been taken while patient fasting however patient is not sure. TAG this high puts patient at risk for pancreatitis. Will redraw labs tomorrow morning to ensure fasting however for now will treat as if this is an accurate lab Hospital course: 11/18: Continue current management and treatment plan. 11/19: Increase Depakote to 500 mg in AM and continue 1,000 mg HS. 11/20: continue current management and treatment plan. 11/21 Patient has become manic over the past several days. Additional Depakote dose was added but patient remains manic, grandiose, labile and intrusive. 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 Patient at 1 point broke down crying about the of his parents, saying that his mother was murdered but then saying she had a brain bleed.. Patient saying that he is from [place] and is going to go back and live his life and [place]... Initially demanding to be discharged today but was able to be redirected. Patient agrees to increased medications including adding Zyprexa -will hold Wellbutrin; seems likely that increasing Wellbutrin was what triggered manic episode -Increasing bedtime Depakote to 1250 mg -patient hardly slept last night and added Zyprexa 10 mg b.i.d.; plan is to discontinue once jacob subsides -reviewed labs and repeat cholesterol shows highly elevated TAG>500 though not as high as the day before 11/22 Patient did sleep some last night with added Zyprexa. Still manic but a little less intense and though still with some grandiose ideations, much less so. Patient still intrusive to others but redirectable. Patient did agree that he was acting manic yesterday but says he is fine now and wants to discharge. He persisted in demanding for discharge today and expressed frustration when told this is not possible but remained in behavioral control. -Great right toe with cellulitis; started on Keflex -Depakote labs ordered for Wednesday *patient is not stable to return to intermediate at this time. Will try to get him to retract his 3 day notice but will otherwise file for civil commitment; that said hopefully will not need to go to court and manic episode will resolve Plan: Three day notice due 11/23 Q 15 minute checks On community [place] ORDER/guardianship 1. Jacob HOLD Wellbutrin XL to 450 mg; once jacob has suicide will go back to titrating to Wellbutrin 300mg (seems likely that increasing Wellbutrin to 450mg was what triggered manic episode) TEMPORARILY INCREASED TO Zyprexa 10 mg t.i.d.; plan is to DISContinue once jacob subsides Continue Depakote 500mg daily (recently added over weekend) ContinueDepakote 1250 mg q.h.s.; level obtained and low therapeutic range Continue Risperdal 1 mg a.m. and 4 mg q.h.s. Continue Clozaril 400 mg q.h.s.; get level STARTed Fenobibrate 160mg daily for severely elevated Triacylglycerides of 898 (pt has normal renal function) Continue other home medications -consider Ingrezza 2. Great right toe cellulitis Started on Keflex 500 mg b.i.d. for 7 days 3. TAG 898 (appears to be fasting)/Cholesterol 319 re-order Lipid panel for tomorrow to ensure fasting lab value obtained (pt and nursing aware) Start Fenobibrate 160mg daily (pt has normal renal function) Change diet to Low Fat diet will consider Statin Ordered TSH (lft's WNL) hospitalist consult Patient educated on: diagnosis, medication risk/benefits, therapeutic strategies and medical condition Informed Consent: understands, does not understand and further education needed Reason for continued inpatient stay Substantial Risk for: inability to function Time Spent With Patient Time: Total time managing care of this patient today ____ minutes.
[2024-11-22 17:19] VITALS: BP 122/78
[2024-11-22 19:52] VITALS: BP 143/67; PULSE 118; RESP 20; TEMP 36.6; O2SAT 97
[2024-11-23 07:00] VITALS: BMI 36.6
[2024-11-23 08:00] VITALS: BP 112/63; PULSE 103; RESP 16; TEMP 36.8; O2SAT 98
[2024-11-23 08:11] LABS: Neut%MD 43.1 %; WBCANC 8.0 X10*3/uL
[2024-11-23] MEDS: Throat Lozenge, Medicated LOZENGE 1 LOZENGE MUCOUS MEM (08:49)
[2024-11-23] MEDS: Nicotine 21 MG PATCH.TD24 TRANSDERMA (08:51)
[2024-11-23 10:26] VITALS: BP 145/77
--- NOTE | 2024-11-23 12:15 | HO.PSYCHPN ---
Subjective Subjective Date of Service: 11/23/24 Reason For Visit: Depressive D/O Schizoaffective Subjective Notes: Conditional Voluntary Medical Problems Affecting Mental Status: No Interim History: Medical record and nursing notes reviewed; case discussed during rounds with team/nursing staff, and met with patient for supportive therapy/psychoeducation, as well as medication management. Patient slept for 2 hours, was medication compliant. Denies side effect but observed have some hand tremors. Restless, racing thoughts, intrusive, poor boundaries, need multiple redirections most of the time to respect personal space. He is over friendly, bright, manic but appeared to be less manic compared to yesterday. Can be perseverative on discharge, redirectable and need to remind that he is not leaving today a couple of times. He retracted 3 day notice. He seems to be forgetful. To PRNs with mild to moderate effects. He works on puzzle, and cleaning up his room. He has an reasonable planning for the future, appeared to be grandiose no aggressive behavior, can be irritable at times when things not the way he requested. Medication Compliance: Yes Side effects from medications: Yes (Denies but some hand tremors observed ) Attending Groups: Intermittent Review of Systems Acute medical concerns: No Medical Review of Systems: unchanged Review of Systems Review of Systems Constitutional: Denies fatigue and Denies fever(s) Cardiovascular: Denies chest pain and Denies dyspnea Respiratory: Denies dyspnea Gastrointestinal: Denies abdominal pain Psychiatric: denies suicidal ideation Endocrine: Denies fatigue Yes all other systems are reviewed and are negative Mental Status Exam Mental Status Exam Narrative: Pt is alert and oriented; behavior is still manic but a little less intense; still, hyperverbal and can be intrusive with peers and staff, intermittently demanding but overall more redirectable; patient is not in distress; dressed in casual attire, unkempt; bilateral hand tremor; marginal hygiene; mood is described as good and affect somewhat expansive; eye contact appropriate; Speech still pressured but less so and not rambling as much; moderate psychomotor agitation present; thought process can be goal oriented but distracted; Thought content still with some grandiose delusions but less so; denies any SI/HI. Denies AVH Patients insight and judgment impaired Diagnostics Vital Signs (24Hr): Vital Signs - 24 hr 11/22/24 17:19 11/22/24 19:52 11/23/24 08:00 Temperature 97.8 F 98.2 F Pulse Rate 118 H 103 H Respiratory Rate 20 16 Blood Pressure 122/78 143/67 H 112/63 Pulse Oximetry 97 98 Oxygen Delivery Method Room Air Room Air 11/23/24 10:26 Temperature Pulse Rate Respiratory Rate Blood Pressure 145/77 H Pulse Oximetry Oxygen Delivery Method BMI result Body Mass Index 36.6 Labs 11/17/24 07:53 Labs: Laboratory Results - last 48 hr 11/23/24 07:50 Absolute Neuts (auto) 3.5 Medications Medications Current Medications Acetaminophen (Acetaminophen 325 Mg Tablet) 650 mg PO Q6H PRN PRN Reason: Headache/Pain, Scale 1-10 Last Admin: 11/23/24 08:49 Dose: 650 mg Al Hydroxide/Mg Hydroxide (Magnesium Hydrox/Alum Hydrox 30 Ml Oral.Susp) 30 ml PO Q6H PRN PRN Reason: Heartburn/Nausea Last Admin: 11/21/24 01:55 Dose: 30 ml Benzocaine (Throat Lozenge, Medicated Lozenge) 1 lozenge MUCOUS MEM Q2H PRN PRN Reason: Sore Throat Last Admin: 11/23/24 08:49 Dose: 1 lozenge Bupropion HCl (Bupropion Hcl Xl 300 Mg Tab.Er.24h) 300 mg PO DAILY [facility] On Hold: 11/21/24 09:50 Last Admin: 11/21/24 09:03 Dose: 300 mg Capsaicin (Capsaicin 0.025% Cream 60 Gm Tube) 1 appl TOPICAL TID PRN; Protocol PRN Reason: leg pain Last Admin: 11/22/24 14:20 Dose: 1 appl Cephalexin HCl (Cephalexin 500 Mg Capsule) 500 mg PO BID [facility] Stop: 11/29/24 14:04 Last Admin: 11/23/24 08:45 Dose: 500 mg Clonidine HCl (Clonidine Hcl 0.1 Mg Tablet) 0.1 mg PO Q4H PRN; Protocol PRN Reason: moderate anxiety Last Admin: 11/23/24 10:26 Dose: 0.1 mg Clozapine (Clozapine 100 Mg Tablet) 400 mg PO BEDTIME [facility] Last Admin: 11/22/24 17:20 Dose: 400 mg Divalproex Sodium (Divalproex Sodium 500 Mg Tablet.) 500 mg PO DAILY [facility] Last Admin: 11/23/24 08:45 Dose: 500 mg Divalproex Sodium (Divalproex Sodium 250 Mg Tablet.Dr) 1,250 mg PO BEDTIME [facility] Last Admin: 11/22/24 17:23 Dose: 1,250 mg Docusate Sodium (Docusate Sodium 100 Mg Capsule) 100 mg PO BID [facility] [place] Last Admin: 11/23/24 08:45 Dose: 100 mg Fenofibrate (Fenofibrate 160 Mg Tablet) 160 mg PO DAILY [facility] [place] Last Admin: 11/23/24 08:45 Dose: 160 mg Fluticasone Propionate (Fluticasone Propionate Nasal 16 Gm [place]) 1 spray NOSTRIL-B BEDTIME [facility] [place] Last Admin: 11/22/24 22:15 Dose: 1 spray Fluticasone Propionate (Fluticasone Propionate Nasal 16 Gm [place]) 1 spray NOSTRIL-B DAILY PRN PRN Reason: Nasal allergy Last Admin: 11/20/24 09:07 Dose: 1 spray Hydroxyzine HCl (Hydroxyzine Hcl 25 Mg Tablet) 25 mg PO Q6H PRN PRN Reason: mild anxiety Last Admin: 11/23/24 10:26 Dose: 25 mg Hydroxyzine HCl (Hydroxyzine Hcl 50 Mg Tablet) 50 mg PO BID [facility] [place] Last Admin: 11/23/24 08:45 Dose: 50 mg Ibuprofen (Ibuprofen 400 Mg Tablet) 400 mg PO Q6H PRN PRN Reason: Pain, Moderate(Pain Scale 4-6) Last Admin: 11/22/24 23:32 Dose: 400 mg Lorazepam (Lorazepam 1 Mg Tablet) 1 mg PO Q8H PRN PRN Reason: Anxiety Last Admin: 11/23/24 04:36 Dose: 1 mg Magnesium Hydroxide (Milk Of Magnesia 30 Ml Oral.Susp) 30 ml PO DAILY PRN PRN Reason: Constipation Nicotine (Nicotine 21 Mg Patch.Td24) 21 mg TRANSDERMA DAILY PRN PRN Reason: smoking cessation Last Admin: 11/23/24 08:51 Dose: 21 mg Nicotine Polacrilex (Nicotine Polacrilex 2 Mg Gum) 4 mg BUCCAL Q2H PRN PRN Reason: Nicotine Cravings Last Admin: 11/22/24 22:14 Dose: 4 mg Olanzapine (Olanzapine 5 Mg Tablet) 5 mg PO TID PRN PRN Reason: agitation Last Admin: 11/23/24 10:24 Dose: 5 mg Olanzapine (Olanzapine 10 Mg Tablet) 10 mg PO TID [facility] [place] Stop: 11/23/24 23:45 Last Admin: 11/23/24 08:45 Dose: 10 mg Risperidone (Risperidone 2 Mg Tablet) 4 mg PO BEDTIME [facility] [place] Last Admin: 11/22/24 22:14 Dose: 4 mg Risperidone (Risperidone 1 Mg Tablet) 1 mg PO DAILY [facility] Last Admin: 11/23/24 08:46 Dose: 1 mg Trazodone HCl (Trazodone Hcl 50 Mg Tablet) 50 mg PO BEDTIME MRX1 PRN PRN Reason: Insomnia Last Admin: 11/22/24 22:15 Dose: 50 mg Allergies Allergies Allergy/AdvReac Type Severity Reaction Status Date / Time benztropine (From [facility]) Allergy Unknown UNKNOWN Verified 11/16/24 15:51 propranolol (From [facility]DER[facility] [place]) Allergy Unknown UNKNOWN Verified 11/16/24 15:51 chaste tree Allergy Unknown Verified 11/16/24 15:51 lithium Allergy Unknown Verified 11/16/24 15:51 Assessment & Plan Assessment & Plan (1) Schizoaffective disorder, bipolar type: Status: Acute Code(s): F25.0 - Schizoaffective disorder, bipolar type (2) Autism spectrum disorder: Status: Acute Code(s): F84.0 - Autistic disorder (3) Cellulitis: Status: Acute Code(s): L03.90 - Cellulitis, unspecified (4) Class 3 obesity: Status: Acute Code(s): E66.813 - Obesity, class 3 Plan Patient is a 34-year-old male with history of schizoaffective disorder bipolar type, Autism Spectrum Disorder, who lives in a fdc, on a [facility] who presents for depression. Patient reports that every 7 weeks (and every 4 months) medications don't work...and I feel depressed.... He says the the depression last anywhere from 2 to 12 days.. And then resolves on it's own without medication changes. Patient reports that he had suicidal ideation a few days ago, no plan but does not now. Patient says sometimes he hears sounds or voices that others do not hear, sometimes laughing noise but not very often and usually just during sleep. Discussed medication regimen and patient said that recently his Depakote was increased because he was having mood swings but it was difficult for him to give details. Discussed medication options and patient agrees to increase Wellbutrin to 450 mg. Formulation/clinical reasoning: Patient reports that episodically he still gets bouts of depression that can last for longer than a week however this seemed to resolve on their own. He is not sure what triggers them. Patient says he is already feeling better now that he is on the unit because of the friendships and interactions he has made since coming to the unit; patient signed a 3 day notice. Discussed medication options and patient agrees to increase Wellbutrin to 450 mg. Senior Label Specialist wonders if perhaps patient can remain at Wellbutrin 300 mg and just take the extra 150 mg if he starts to feel depressed, sort of as an episodic p.r.n. -patient currently on 2 antipsychotics, including Clozaril and Risperdal; -some TD and pill rolling b/l hand tremor observed; wonder if Risperdal dose could be lowered; consider Ingrezza Of note patient had severely high Triacylglycerides of 898. It appears to have been taken while patient fasting however patient is not sure. TAG this high puts patient at risk for pancreatitis. Will redraw labs tomorrow morning to ensure fasting however for now will treat as if this is an accurate lab Hospital course: 11/18: Continue current management and treatment plan. 11/19: Increase Depakote to 500 mg in AM and continue 1,000 mg HS. 11/20: continue current management and treatment plan. 11/21 Patient has become manic over the past several days. Additional Depakote dose was added but patient remains manic, grandiose, labile and intrusive. 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 Patient at 1 point broke down crying about the of his parents, saying that his mother was murdered but then saying she had a brain bleed.. Patient saying that he is from [place] and is going to go back and live his life and [place]... Initially demanding to be discharged today but was able to be redirected. Patient agrees to increased medications including adding Zyprexa -will hold Wellbutrin; seems likely that increasing Wellbutrin was what triggered manic episode -Increasing bedtime Depakote to 1250 mg -patient hardly slept last night and added Zyprexa 10 mg b.i.d.; plan is to discontinue once pam subsides -reviewed labs and repeat cholesterol shows highly elevated TAG>500 though not as high as the day before 11/22 Patient did sleep some last night with added Zyprexa. Still manic but a little less intense and though still with some grandiose ideations, much less so. Patient still intrusive to others but redirectable. Patient did agree that he was acting manic yesterday but says he is fine now and wants to discharge. He persisted in demanding for discharge today and expressed frustration when told this is not possible but remained in behavioral control. -Great right toe with cellulitis; started on Keflex -Depakote labs ordered for Wednesday *patient is not stable to return to fdc at this time. Will try to get him to retract his 3 day notice but will otherwise file for civil commitment; that said hopefully will not need to go to court and manic episode will resolve 11/23/24: Patient slept for 2 hours, was medication compliant. Denies side effect but observed have some hand tremors. Restless, racing thoughts, intrusive, poor boundaries, need multiple redirections most of the time to respect personal space. He is over friendly, bright, manic but appeared to be less manic compared to yesterday. Can be perseverative on discharge, redirectable and need to remind that he is not leaving today a couple of times. He retracted 3 day notice. He seems to be forgetful. To PRNs with mild to moderate effects. He works on puzzle, and cleaning up his room. He has an reasonable planning for the future, appeared to be grandiose no aggressive behavior, can be irritable at times when things not the way he requested. Continue to monitor for sleeping pattern. Plan: Three day notice due 11/23. Retracted it. Q 15 minute checks On [facility] ORDER/guardianship 1. Pam HOLD Wellbutrin XL to 450 mg; once pam has suicide will go back to titrating to Wellbutrin 300mg (seems likely that increasing Wellbutrin to 450mg was what triggered manic episode) TEMPORARILY INCREASED TO Zyprexa 10 mg t.i.d.; plan is to DISContinue once pam subsides Continue Depakote 500mg daily (recently added over weekend) ContinueDepakote 1250 mg q.h.s.; level obtained and low therapeutic range Continue Risperdal 1 mg a.m. and 4 mg q.h.s. Continue Clozaril 400 mg q.h.s.; get level STARTed Fenobibrate 160mg daily for severely elevated Triacylglycerides of 898 (pt has normal renal function) Continue other home medications -consider Ingrezza 2. Great right toe cellulitis Started on Keflex 500 mg b.i.d. for 7 days 3. TAG 898 (appears to be fasting)/Cholesterol 319 re-ordered Lipid panel: Trilgyciride 898 down to 581 on 11/18/24. Cholesterol 319 down to 317. AIC 5.5 WNL. Pending CLozaril and norcloraril levels: Start Fenobibrate 160mg daily (pt has normal renal function) Change diet to Low Fat diet will consider Statin Ordered TSH (lft's WNL): 0.81 WNL Patient educated on: diagnosis, medication risk/benefits and therapeutic strategies Informed Consent: further education needed Reason for continued inpatient stay Substantial Risk for: med/psych decompensation Time Spent With Patient Time: Total time managing care of this patient today ____ minutes.
[2024-11-23 19:49] LABS: Clozapine (Clozaril) 403 mcg/L
[2024-11-23 20:00] VITALS: BP 149/71; PULSE 128; RESP 18; TEMP 36.3; O2SAT 98
[2024-11-23 21:27] VITALS: BP 134/74; PULSE 117; TEMP 36.4; O2SAT 97
[2024-11-24] MEDS: Throat Lozenge, Medicated LOZENGE 1 LOZENGE MUCOUS MEM ×3 (06:22→21:57)
--- NOTE | 2024-11-24 06:31 | PC.NURSE ---
Pt reported an unwitnessed fall in kitchen at 2122. Pt said as he was sitting down in a chair in the kitchen, pt became distracted by a peer and missed the chair. Pt said he bumped his left arm on the chair, but did not hit his head. Pt denied pain at that time. Staff noted pt was dancing the [employer] in the kitchen shortly after the fall. Vital signs assessed at 2126 and were WNL. Oncall provider notified at 2146 via text and asked to be notified if pt had c/o pain so X-rays could be ordered. Nursing syrup shed supervisor was informed at 2199. Pt appeared to sleep through the night.
[2024-11-24 08:00] VITALS: BP 155/92; PULSE 130; TEMP 36.4; O2SAT 96
[2024-11-24] MEDS: Nicotine 21 MG PATCH.TD24 TRANSDERMA (08:22)
[2024-11-24 08:31] LABS: Alanine Aminotransferase 29 U/L (0-40); Albumin Level 4.4 g/dL (3.5-5.0); Alkaline Phosphatase 77 U/L (39-117); Aspartate Amino Transferase 51 U/L (5-37); Total Protein 7.5 g/dL (6.5-8.0)
[2024-11-24 08:32] LABS: Ammonia 41 umol/L (13-55)
[2024-11-24 08:39] VITALS: PULSE 112
[2024-11-24 12:32] VITALS: BP 149/86
[2024-11-24 16:15] VITALS: BP 134/74
--- NOTE | 2024-11-24 18:26 | P.PNPSI_ITS ---
Subjective Subjective Date of Service: 11/24/24 Reason For Visit: Depressive D/O Schizoaffective Subjective Notes: Conditional Voluntary Medical Problems Affecting Mental Status: No Interim History: Medical record and nursing notes reviewed; case discussed during rounds with team/nursing staff, and met with patient for supportive therapy/psychoeducation, as well as medication management. Slept slightly improved compared to last night, he was able to slept for 4 hours. Was medication compliant. Mood is I am happy. I am calm and relaxed . Reports foot pain, nursing have patient to put lotion on, encouraged to elevated legs when he resting as left food appear to be slightly swollen. He said he would like to go back to his correction. He also asked if he can call Carla and Max to apologize to them. Read direct patient not calling so many times that may annoying other persons. He admitted that he need to give them a break . Observe want time he was on the phone, appropriate. He is slightly better compared to yesterday, able to sit tell, listen to advice/redirection. Even though he has delusional, and grandiose thoughts. Thinking he see a snake in his toilet, seeing his brother coming to see him. Per nursing he had unwitnessed fall when trying to put himself sitting down on the chair but missed it. Medication Compliance: Yes Side effects from medications: Yes (hand tremors) Attending Groups: Intermittent Review of Systems Acute medical concerns: No Medical Review of Systems: unchanged Review of Systems Review of Systems Constitutional: Denies fatigue and Denies fever(s) Cardiovascular: Denies chest pain and Denies dyspnea. Edema on left foot. Encourage and remind him to elevated it when resting. Respiratory: Denies dyspnea Gastrointestinal: Denies abdominal pain Psychiatric: denies suicidal ideation Endocrine: Denies fatigue Yes all other systems are reviewed and are negative Mental Status Exam Mental Status Exam Narrative: Pt is alert and oriented; behavior is still manic but a little less intense daily ; still, hyperverbal and can be but less intrusive with peers and staff, less demanding and overall more redirectable; patient is not in distress; dressed in casual attire, unkempt; bilateral hand tremor; marginal hygiene; mood is described as happy, calm and relax and affect somewhat expansive; eye contact appropriate; Speech still pressured but less so and not rambling as much; mild psychomotor agitation present; thought process can be goal oriented, want to return to but distracted; redirected for not achievable goals. Thought content still with some grandiose delusions; denies any SI/HI. Denies AVH Patients insight and judgment impaired Diagnostics Vital Signs (24Hr): Vital Signs - 24 hr 11/23/24 20:00 11/23/24 21:27 11/24/24 08:00 Temperature 97.3 F 97.5 F 97.5 F Pulse Rate 128 H 117 H 130 H Respiratory Rate 18 Blood Pressure 149/71 H 134/74 155/92 H Pulse Oximetry 98 97 96 Oxygen Delivery Method Room Air Room Air Room Air 11/24/24 08:39 11/24/24 12:32 11/24/24 16:15 Temperature Pulse Rate 112 H Respiratory Rate Blood Pressure 149/86 H 134/74 Pulse Oximetry Oxygen Delivery Method BMI result Body Mass Index 36.6 Labs 11/17/24 07:53 Labs: Laboratory Results - last 48 hr 11/18/24 11/23/24 11/24/24 08:43 07:50 07:48 Absolute Neuts (auto) 3.5 Total Bilirubin 0.3 Direct Bilirubin 0.1 AST 51 H ALT 29 Alkaline Phosphatase 77 Ammonia 41 Total Protein 7.5 Albumin 4.4 Valproic Acid 71.4 Clozapine 403 Norclozapine 137 Medications Medications Current Medications Acetaminophen (Acetaminophen 325 Mg Tablet) 650 mg PO Q6H PRN PRN Reason: Headache/Pain, Scale 1-10 Last Admin: 11/23/24 08:49 Dose: 650 mg Al Hydroxide/Mg Hydroxide (Magnesium Hydrox/Alum Hydrox 30 Ml Oral.Susp) 30 ml PO Q6H PRN PRN Reason: Heartburn/Nausea Last Admin: 11/21/24 01:55 Dose: 30 ml Benzocaine (Throat Lozenge, Medicated Lozenge) 1 lozenge MUCOUS MEM Q2H PRN PRN Reason: Sore Throat Last Admin: 11/24/24 16:15 Dose: 1 lozenge Bupropion HCl (Bupropion Hcl Xl 300 Mg Tab.Er.24h) 300 mg PO DAILY [facility] On Hold: 11/21/24 09:50 Last Admin: 11/21/24 09:03 Dose: 300 mg Capsaicin (Capsaicin 0.025% Cream 60 Gm Tube) 1 appl TOPICAL TID PRN; Protocol PRN Reason: leg pain Last Admin: 11/24/24 12:35 Dose: 1 appl Cephalexin HCl (Cephalexin 500 Mg Capsule) 500 mg PO BID [facility] Stop: 11/29/24 14:04 Last Admin: 11/24/24 08:22 Dose: 500 mg Clonidine HCl (Clonidine Hcl 0.1 Mg Tablet) 0.1 mg PO Q4H PRN; Protocol PRN Reason: moderate anxiety Last Admin: 11/24/24 16:15 Dose: 0.1 mg Clozapine (Clozapine 100 Mg Tablet) 400 mg PO BEDTIME [facility] Last Admin: 11/23/24 20:34 Dose: 400 mg Divalproex Sodium (Divalproex Sodium 500 Mg Tablet.) 500 mg PO DAILY [facility] Last Admin: 11/24/24 08:21 Dose: 500 mg Divalproex Sodium (Divalproex Sodium 250 Mg Tablet.) 1,250 mg PO BEDTIME [facility] Last Admin: 11/23/24 20:31 Dose: 1,250 mg Docusate Sodium (Docusate Sodium 100 Mg Capsule) 100 mg PO BID [facility] Last Admin: 11/24/24 08:21 Dose: 100 mg Fenofibrate (Fenofibrate 160 Mg Tablet) 160 mg PO DAILY [facility] Last Admin: 11/24/24 08:21 Dose: 160 mg Fluticasone Propionate (Fluticasone Propionate Nasal 16 Gm [place]) 1 spray NOSTRIL-B BEDTIME [facility] Last Admin: 11/23/24 20:54 Dose: Not Given Fluticasone Propionate (Fluticasone Propionate Nasal 16 Gm [place]) 1 spray NOSTRIL-B DAILY PRN PRN Reason: Nasal allergy Last Admin: 11/24/24 06:25 Dose: 1 spray Hydroxyzine HCl (Hydroxyzine Hcl 25 Mg Tablet) 25 mg PO Q6H PRN PRN Reason: mild anxiety Last Admin: 11/24/24 16:15 Dose: 25 mg Hydroxyzine HCl (Hydroxyzine Hcl 50 Mg Tablet) 50 mg PO BID [facility] Last Admin: 11/24/24 08:21 Dose: 50 mg Ibuprofen (Ibuprofen 400 Mg Tablet) 400 mg PO Q6H PRN PRN Reason: Pain, Moderate(Pain Scale 4-6) Last Admin: 11/24/24 13:28 Dose: 400 mg Lorazepam (Lorazepam 1 Mg Tablet) 1 mg PO Q8H PRN PRN Reason: Anxiety Last Admin: 11/24/24 12:32 Dose: 1 mg Magnesium Hydroxide (Milk Of Magnesia 30 Ml Oral.Susp) 30 ml PO DAILY PRN PRN Reason: Constipation Nicotine (Nicotine 21 Mg Patch.Td24) 21 mg TRANSDERMA DAILY PRN PRN Reason: smoking cessation Last Admin: 11/24/24 08:22 Dose: 21 mg Nicotine Polacrilex (Nicotine Polacrilex 2 Mg Gum) 4 mg BUCCAL Q2H PRN PRN Reason: Nicotine Cravings Last Admin: 11/24/24 16:21 Dose: 4 mg Olanzapine (Olanzapine 5 Mg Tablet) 5 mg PO TID PRN PRN Reason: agitation Last Admin: 11/23/24 15:36 Dose: 5 mg Risperidone (Risperidone 2 Mg Tablet) 4 mg PO BEDTIME [facility] Last Admin: 11/23/24 20:36 Dose: 4 mg Risperidone (Risperidone 1 Mg Tablet) 1 mg PO DAILY [facility] Last Admin: 11/24/24 08:21 Dose: 1 mg Trazodone HCl (Trazodone Hcl 50 Mg Tablet) 50 mg PO BEDTIME MRX1 PRN PRN Reason: Insomnia Last Admin: 11/22/24 22:15 Dose: 50 mg Allergies Allergies Allergy/AdvReac Type Severity Reaction Status Date / Time benztropine (From COGENT[facility]) Allergy Unknown UNKNOWN Verified 11/16/24 15:51 propranolol (From INDERAL [place]) Allergy Unknown UNKNOWN Verified 11/16/24 15:51 chaste tree Allergy Unknown Verified 11/16/24 15:51 lithium Allergy Unknown Verified 11/16/24 15:51 Assessment & Plan Assessment & Plan (1) Schizoaffective disorder, bipolar type: Status: Acute Code(s): F25.0 - Schizoaffective disorder, bipolar type (2) Autism spectrum disorder: Status: Acute Code(s): F84.0 - Autistic disorder (3) Cellulitis: Status: Acute Code(s): L03.90 - Cellulitis, unspecified (4) Class 3 obesity: Status: Acute Code(s): E66.813 - Obesity, class 3 Plan Patient is a 34-year-old male with history of schizoaffective disorder bipolar type, Autism Spectrum Disorder, who lives in a correction, on a [facility] who presents for depression. Patient reports that every 7 weeks (and every 4 months) medications don't work...and I feel depressed.... He says the the depression last anywhere from 2 to 12 days.. And then resolves on it's own without medication changes. Patient reports that he had suicidal ideation a few days ago, no plan but does not now. Patient says sometimes he hears sounds or voices that others do not hear, sometimes laughing noise but not very often and usually just during sleep. Discussed medication regimen and patient said that recently his Depakote was increased because he was having mood swings but it was difficult for him to give details. Discussed medication options and patient agrees to increase Wellbutrin to 450 mg. Formulation/clinical reasoning: Patient reports that episodically he still gets bouts of depression that can last for longer than a week however this seemed to resolve on their own. He is not sure what triggers them. Patient says he is already feeling better now that he is on the unit because of the friendships and interactions he has made since coming to the unit; patient signed a 3 day notice. Discussed medication options and patient agrees to increase Wellbutrin to 450 mg. Collections Manager wonders if perhaps patient can remain at Wellbutrin 300 mg and just take the extra 150 mg if he starts to feel depressed, sort of as an episodic p.r.n. -patient currently on 2 antipsychotics, including Clozaril and Risperdal; -some TD and pill rolling b/l hand tremor observed; wonder if Risperdal dose could be lowered; consider Ingrezza Of note patient had severely high Triacylglycerides of 898. It appears to have been taken while patient fasting however patient is not sure. TAG this high puts patient at risk for pancreatitis. Will redraw labs tomorrow morning to ensure fasting however for now will treat as if this is an accurate lab Hospital course: 11/18: Continue current management and treatment plan. 11/19: Increase Depakote to 500 mg in AM and continue 1,000 mg HS. 11/20: continue current management and treatment plan. 11/21 Patient has become manic over the past several days. Additional Depakote dose was added but patient remains manic, grandiose, labile and intrusive. 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 Patient at 1 point broke down crying about the of his parents, saying that his mother was murdered but then saying she had a brain bleed.. Patient saying that he is from [place] and is going to go back and live his life and [place]... Initially demanding to be discharged today but was able to be redirected. Patient agrees to increased medications including adding Zyprexa -will hold Wellbutrin; seems likely that increasing Wellbutrin was what triggered manic episode -Increasing bedtime Depakote to 1250 mg -patient hardly slept last night and added Zyprexa 10 mg b.i.d.; plan is to discontinue once jacob subsides -reviewed labs and repeat cholesterol shows highly elevated TAG>500 though not as high as the day before 11/22 Patient did sleep some last night with added Zyprexa. Still manic but a little less intense and though still with some grandiose ideations, much less so. Patient still intrusive to others but redirectable. Patient did agree that he was acting manic yesterday but says he is fine now and wants to discharge. He persisted in demanding for discharge today and expressed frustration when told this is not possible but remained in behavioral control. -Great right toe with cellulitis; started on Keflex -Depakote labs ordered for Wednesday *patient is not stable to return to correction at this time. Will try to get him to retract his 3 day notice but will otherwise file for civil commitment; that said hopefully will not need to go to court and manic episode will resolve 11/23/24: Patient slept for 2 hours, was medication compliant. Denies side effect but observed have some hand tremors. Restless, racing thoughts, intrusive, poor boundaries, need multiple redirections most of the time to respect personal space. He is over friendly, bright, manic but appeared to be less manic compared to yesterday. Can be perseverative on discharge, redirectable and need to remind that he is not leaving today a couple of times. He retracted 3 day notice. He seems to be forgetful. To PRNs with mild to moderate effects. He works on puzzle, and cleaning up his room. He has an reasonable planning for the future, appeared to be grandiose no aggressive behavior, can be irritable at times when things not the way he requested. Continue to monitor for sleeping pattern. 11/24/24: Slept slightly improved compared to the night before, he was able to slept for 4 hours. Was medication compliant. Mood is I am happy. I am calm and relaxed . Reports foot pain, nursing have patient to put lotion on, encouraged to elevated legs when he resting as left food appear to be slightly swollen. He said he would like to go back to his correction. He also asked if he can call Carla and Max to apologize to them. Read direct patient not calling so many times that may annoying other persons. He admitted that he need to give them a break . Observe want time he was on the phone, appropriate. He is slightly better compared to yesterday, able to sit still, listen to advice/redirection. Even though he has delusional, and grandiose thoughts. Thinking he see a snake in his toilet, seeing his brother coming to see him. Per nursing he had unwitnessed fall when trying to put himself sitting down on the chair but missed it. Slightly better in term of manic behaviors, redirectable and less demanding. Redirected for personal space. Accepted it without any problems. Plan: Three day notice due 11/23. Retracted it. Q 15 minute checks On [facility] ORDER/guardianship 1. Jacob HOLD Wellbutrin XL to 450 mg; once jacob has suicide will go back to titrating to Wellbutrin 300mg (seems likely that increasing Wellbutrin to 450mg was what triggered manic episode) TEMPORARILY INCREASED TO Zyprexa 10 mg t.i.d.; plan is to DISContinue once jacob subsides: D/C D Continue Depakote 500mg daily (recently added over weekend) Conitinue Depakote 1250 mg q.h.s.; level obtained and low therapeutic range (56.5). Dose increased with total of 1,750mg and recheck on 11/24: 71/4 therapeutic. Continue Risperdal 1 mg a.m. and 4 mg q.h.s. Continue Clozaril 400 mg q.h.s.; get level: 403 and Norclozaril 137. STARTed Fenobibrate 160mg daily for severely elevated Triacylglycerides of 898 (pt has normal renal function) Continue other home medications -consider Ingrezza 2. Great right toe cellulitis Started on Keflex 500 mg b.i.d. for 7 days 3. TAG 898 (appears to be fasting)/Cholesterol 319 re-ordered Lipid panel: Trilgyciride 898 down to 581 on 11/18/24. Cholesterol 319 down to 317. AIC 5.5 WNL. CLozaril and norclozaril: 403/137 VPA level on 11/24/24: 71.4 Start Fenobibrate 160mg daily (pt has normal renal function) Change diet to Low Fat diet will consider Statin Ordered TSH (lft's WNL): 0.81 WNL Patient educated on: medication risk/benefits and therapeutic strategies Informed Consent: further education needed Reason for continued inpatient stay Substantial Risk for: med/psych decompensation Time Spent With Patient Time: Total time managing care of this patient today ____ minutes.
[2024-11-24 20:00] VITALS: BP 139/79; PULSE 124; RESP 18; TEMP 36.4; O2SAT 96
--- NOTE | 2024-11-25 | ECG_ITS ---
Test Reason : qtc Blood Pressure : */* mmHG Vent. Rate : 116 BPM Atrial Rate : 116 BPM P-R Int : 134 ms QRS Dur : 86 ms QT Int : 352 ms P-R-T Axes : 57 32 61 degrees QTcB Int : 489 ms Sinus tachycardia Otherwise normal ECG When compared with ECG of 05-Apr-2018 13:41, No significant change was found Referred By: Asif Valencia Electronically Signed By: APOLINAR MCMAHON MD
--- NOTE | 2024-11-25 01:41 | PC.NURSE ---
At 0105, Pt stated, ?It?s time for me to go. I have to catch my bus.? Staff informed pt that pt would not be able to leave during the night time. Pt appeared to become agitated. Pt slammed his shoulder against an exit door several times. Staff attempted to redirect pt. Pt began to clench and unclench his fists and stated, ?I?m going to kill you all one by one.? Pt was invited to sit on the fresh air porch while his nurse retrieved PRN medication. Pt agreed to this plan. Pt spoke with staff and appeared to return to behavioral control.
[2024-11-25 08:00] VITALS: BP 150/84; PULSE 117; TEMP 36.3; O2SAT 99
--- NOTE | 2024-11-25 08:32 | P.PNPSI_ITS ---
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 With much effort, Pt remains able to be redirected. discussed medications and pt says Artemio has helped him in past when he's manic; says had bad reaction to [place]. Mental Status Exam Mental Status Exam Narrative: Pt is alert and oriented; behavior is still manic, hyperverbal, intrusive with peers and staff; able to be redirected with much effort; patient is not in distress; dressed in casual attire, unkempt; bilateral hand tremor; marginal hygiene; mood is described as good and affect somewhat expansive; eye contact appropriate; Speech still pressured, rambling; moderate psychomotor agitation present; thought process can be goal oriented, but also tangential; Thought content with grandiose delusions; denies any SI/HI. Denies AVH Patients insight and judgment impaired Diagnostics Vital Signs (24Hr): Vital Signs - 24 hr 11/24/24 08:39 11/24/24 12:32 11/24/24 16:15 Temperature Pulse Rate 112 H Respiratory Rate Blood Pressure 149/86 H 134/74 Pulse Oximetry Oxygen Delivery Method 11/24/24 20:00 11/25/24 08:00 Temperature 97.5 F 97.3 F Pulse Rate 124 H 117 H Respiratory Rate 18 Blood Pressure 139/79 150/84 H Pulse Oximetry 96 99 Oxygen Delivery Method Room Air Room Air BMI result Body Mass Index 36.6 Labs 11/17/24 07:53 Labs: Laboratory Results - last 48 hr 11/18/24 11/24/24 08:43 07:48 Total Bilirubin 0.3 Direct Bilirubin 0.1 AST 51 H ALT 29 Alkaline Phosphatase 77 Ammonia 41 Total Protein 7.5 Albumin 4.4 Valproic Acid 71.4 Clozapine 403 Norclozapine 137 Medications Medications Current Medications Acetaminophen (Acetaminophen 325 Mg Tablet) 650 mg PO Q6H PRN PRN Reason: Headache/Pain, Scale 1-10 Last Admin: 11/24/24 21:57 Dose: 650 mg Al Hydroxide/Mg Hydroxide (Magnesium Hydrox/Alum Hydrox 30 Ml Oral.Susp) 30 ml PO Q6H PRN PRN Reason: Heartburn/Nausea Last Admin: 11/21/24 01:55 Dose: 30 ml Benzocaine (Throat Lozenge, Medicated Lozenge) 1 lozenge MUCOUS MEM Q2H PRN PRN Reason: Sore Throat Last Admin: 11/24/24 21:57 Dose: 1 lozenge Bupropion HCl (Bupropion Hcl Xl 300 Mg Tab.Er.24h) 300 mg PO DAILY ST[facility]ART On Hold: 11/21/24 09:50 Last Admin: 11/21/24 09:03 Dose: 300 mg Capsaicin (Capsaicin 0.025% Cream 60 Gm Tube) 1 appl TOPICAL TID PRN; Protocol PRN Reason: leg pain Last Admin: 11/24/24 12:35 Dose: 1 appl Cephalexin HCl (Cephalexin 500 Mg Capsule) 500 mg PO BID STEWART Stop: 11/29/24 14:04 Last Admin: 11/24/24 21:38 Dose: 500 mg Clonidine HCl (Clonidine Hcl 0.1 Mg Tablet) 0.1 mg PO Q4H PRN; Protocol PRN Reason: moderate anxiety Last Admin: 11/24/24 16:15 Dose: 0.1 mg Clozapine (Clozapine 100 Mg Tablet) 400 mg PO BEDTIME STEWART Last Admin: 11/24/24 21:41 Dose: 400 mg Divalproex Sodium (Divalproex Sodium 500 Mg Tablet.) 500 mg PO DAILY ST[facility]ART Last Admin: 11/24/24 08:21 Dose: 500 mg Divalproex Sodium (Divalproex Sodium 250 Mg Tablet.) 1,250 mg PO BEDTIME ST[facility] Last Admin: 11/24/24 21:46 Dose: 1,250 mg Docusate Sodium (Docusate Sodium 100 Mg Capsule) 100 mg PO BID [facility] Last Admin: 11/24/24 21:38 Dose: 100 mg Fenofibrate (Fenofibrate 160 Mg Tablet) 160 mg PO DAILY [facility] Last Admin: 11/24/24 08:21 Dose: 160 mg Fluticasone Propionate (Fluticasone Propionate Nasal 16 Gm [place]) 1 spray NOSTRIL-B BEDTIME [facility] Last Admin: 11/24/24 21:47 Dose: 1 spray Fluticasone Propionate (Fluticasone Propionate Nasal 16 Gm [place]) 1 spray NOSTRIL-B DAILY PRN PRN Reason: Nasal allergy Last Admin: 11/24/24 06:25 Dose: 1 spray Hydroxyzine HCl (Hydroxyzine Hcl 25 Mg Tablet) 25 mg PO Q6H PRN PRN Reason: mild anxiety Last Admin: 11/24/24 16:15 Dose: 25 mg Hydroxyzine HCl (Hydroxyzine Hcl 50 Mg Tablet) 50 mg PO BID [facility] Last Admin: 11/24/24 21:38 Dose: 50 mg Ibuprofen (Ibuprofen 400 Mg Tablet) 400 mg PO Q6H PRN PRN Reason: Pain, Moderate(Pain Scale 4-6) Last Admin: 11/24/24 13:28 Dose: 400 mg Lorazepam (Lorazepam 1 Mg Tablet) 1 mg PO Q8H PRN PRN Reason: Anxiety Last Admin: 11/24/24 21:58 Dose: 1 mg Magnesium Hydroxide (Milk Of Magnesia 30 Ml Oral.Susp) 30 ml PO DAILY PRN PRN Reason: Constipation Nicotine (Nicotine 21 Mg Patch.Td24) 21 mg TRANSDERMA DAILY PRN PRN Reason: smoking cessation Last Admin: 11/24/24 08:22 Dose: 21 mg Nicotine Polacrilex (Nicotine Polacrilex 2 Mg Gum) 4 mg BUCCAL Q2H PRN PRN Reason: Nicotine Cravings Last Admin: 11/24/24 16:21 Dose: 4 mg Olanzapine (Olanzapine 5 Mg Tablet) 5 mg PO TID PRN PRN Reason: agitation Last Admin: 11/25/24 01:19 Dose: 5 mg Risperidone (Risperidone 2 Mg Tablet) 4 mg PO BEDTIME ST[facility]ART Last Admin: 11/24/24 21:37 Dose: 4 mg Risperidone (Risperidone 1 Mg Tablet) 1 mg PO DAILY STEWART Last Admin: 11/24/24 08:21 Dose: 1 mg Trazodone HCl (Trazodone Hcl 50 Mg Tablet) 50 mg PO BEDTIME MRX1 PRN PRN Reason: Insomnia Last Admin: 11/25/24 01:19 Dose: 50 mg Allergies Allergies Allergy/AdvReac Type Severity Reaction Status Date / Time benztropine (From COGENTIN) Allergy Unknown UNKNOWN Verified 11/16/24 15:51 propranolol (From INDERAL LA) Allergy Unknown UNKNOWN Verified 11/16/24 15:51 chaste tree Allergy Unknown Verified 11/16/24 15:51 lithium Allergy Unknown Verified 11/16/24 15:51 Assessment & Plan Assessment & Plan (1) Schizoaffective disorder, bipolar type: Status: Acute Code(s): F25.0 - Schizoaffective disorder, bipolar type (2) Autism spectrum disorder: Status: Acute Code(s): F84.0 - Autistic disorder (3) Cellulitis: Status: Acute Code(s): L03.90 - Cellulitis, unspecified (4) Class 3 obesity: Status: Acute Code(s): E66.813 - Obesity, class 3 Plan Patient is a 34-year-old male with history of schizoaffective disorder bipolar type, Autism Spectrum Disorder, who lives in a jail, on a [facility] who presents for depression. Patient reports that every 7 weeks (and every 4 months) medications don't work...and I feel depressed.... He says the the depression last anywhere from 2 to 12 days.. And then resolves on it's own without medication changes. Patient reports that he had suicidal ideation a few days ago, no plan but does not now. Patient says sometimes he hears sounds or voices that others do not hear, sometimes laughing noise but not very often and usually just during sleep. Discussed medication regimen and patient said that recently his Depakote was increased because he was having mood swings but it was difficult for him to give details. Discussed medication options and patient agrees to increase Wellbutrin to 450 mg. Formulation/clinical reasoning: Patient reports that episodically he still gets bouts of depression that can last for longer than a week however this seemed to resolve on their own. He is not sure what triggers them. Patient says he is already feeling better now that he is on the unit because of the friendships and interactions he has made since coming to the unit; patient signed a 3 day notice. Discussed medication options and patient agrees to increase Wellbutrin to 450 mg. Physician In Private Practice wonders if perhaps patient can remain at Wellbutrin 300 mg and just take the extra 150 mg if he starts to feel depressed, sort of as an episodic p.r.n. -patient currently on 2 antipsychotics, including Clozaril and Risperdal; -some TD and pill rolling b/l hand tremor observed; wonder if Risperdal dose could be lowered; consider Aristeo Of note patient had severely high Triacylglycerides of 898. It appears to have been taken while patient fasting however patient is not sure. TAG this high puts patient at risk for pancreatitis. Will redraw labs tomorrow morning to ensure fasting however for now will treat as if this is an accurate lab Hospital course: 11/18: Continue current management and treatment plan. 11/19: Increase Depakote to 500 mg in AM and continue 1,000 mg HS. 11/20: continue current management and treatment plan. 11/21 Patient has become manic over the past several days. Additional Depakote dose was added but patient remains manic, grandiose, labile and intrusive. 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 Patient at 1 point broke down crying about the of his parents, saying that his mother was murdered but then saying she had a brain bleed.. Patient saying that he is from [place] and is going to go back and live his life and [place]... Initially demanding to be discharged today but was able to be redirected. Patient agrees to increased medications including adding Zyprexa -will hold Wellbutrin; seems likely that increasing Wellbutrin was what triggered manic episode -Increasing bedtime Depakote to 1250 mg -patient hardly slept last night and added Zyprexa 10 mg b.i.d.; plan is to discontinue once jacob subsides -reviewed labs and repeat cholesterol shows highly elevated TAG>500 though not as high as the day before 11/22 Patient did sleep some last night with added Zyprexa. Still manic but a little less intense and though still with some grandiose ideations, much less so. Patient still intrusive to others but redirectable. Patient did agree that he was acting manic yesterday but says he is fine now and wants to discharge. He persisted in demanding for discharge today and expressed frustration when told this is not possible but remained in behavioral control. -Great right toe with cellulitis; started on Keflex -Depakote labs ordered for Wednesday *patient is not stable to return to jail at this time. Will try to get him to retract his 3 day notice but will otherwise file for civil commitment; that said hopefully will not need to go to court and manic episode will resolve 11/23/24: Patient slept for 2 hours, was medication compliant. Denies side effect but observed have some hand tremors. Restless, racing thoughts, intrusive, poor boundaries, need multiple redirections most of the time to respect personal space. He is over friendly, bright, manic but appeared to be less manic compared to yesterday. Can be perseverative on discharge, redirectable and need to remind that he is not leaving today a couple of times. He retracted 3 day notice. He seems to be forgetful. To PRNs with mild to moderate effects. He works on puzzle, and cleaning up his room. He has an reasonable planning for the future, appeared to be grandiose no aggressive behavior, can be irritable at times when things not the way he requested. Continue to monitor for sleeping pattern. 11/24/24: Slept slightly improved compared to the night before, he was able to slept for 4 hours. Was medication compliant. Mood is I am happy. I am calm and relaxed . Reports foot pain, nursing have patient to put lotion on, encouraged to elevated legs when he resting as left food appear to be slightly swollen. He said he would like to go back to his jail. He also asked if he can call Carla and Max to apologize to them. Read direct patient not calling so many times that may annoying other persons. He admitted that he need to give them a break . Observe want time he was on the phone, appropriate. He is slightly better compared to yesterday, able to sit still, listen to advice/redirection. Even though he has delusional, and grandiose thoughts. Thinking he see a snake in his toilet, seeing his brother coming to see him. Per nursing he had unwitnessed fall when trying to put himself sitting down on the chair but missed it. Slightly better in term of manic behaviors, redirectable and less demanding. Redirected for personal space. Accepted it without any problems. 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 With much effort, Pt remains able to be redirected; examined great rt toe which remains with clear signs of cellulites -Start Ziprasidone -obtained EKG and qtc WNL -Depakote level with much room so will switch depakote to ER so can make at bedtime to help w/ sleep and will increase dose (Depakote IR 1750mg ~ Dep ER 2000) Plan: Three day notice due 11/23. Retracted it. Q 15 minute checks On [facility] ORDER/guardianship 1. Jacob Changed to Depakote ER 2500mg qhs Start Ziprasidone 20mg BID (pt says helped with jacob; will use to address jacob and then DC) Start Diazpam 10mg TID; will taper and dc once jacob subsides Dc zyprexa; does not seem to do much Continue Risperdal 1 mg a.m. and 4 mg q.h.s. Continue Clozaril 400 mg q.h.s.; Level: 403 and Norclozaril 137. HOLD Wellbutrin XL (once jacob resolved likely re-titrate to Wellbutrin 300mg (likely increasing to 450mg triggered manic episode) STARTed Fenobibrate 160mg daily for severely elevated Triacylglycerides of 898 (pt has normal renal function) Continue other home medications -consider Ingrezza -adverse reaction to [place] (per patient) -consider Tegretol? 2. Great right toe cellulitis Increased to Keflex 500 mg qid for 7 days (discussed increased dose with hospitalist PA) 3. TAG 898 (appears to be fasting)/Cholesterol 319 re-ordered Lipid panel: Trilgyciride 898 down to 581 on 11/18/24. Cholesterol 319 down to 317. AIC 5.5 WNL. Started Fenobibrate 160mg daily (pt has normal renal function) Change diet to Low Fat diet will consider Statin Ordered TSH (lft's WNL): 0.81 WNL Patient educated on: diagnosis, medication risk/benefits and medical condition Informed Consent: understands, does not understand and further education needed Reason for continued inpatient stay Substantial Risk for: inability to function Time Spent With Patient Time: Total time managing care of this patient today ____ minutes.
[2024-11-25] MEDS: Nicotine 21 MG PATCH.TD24 TRANSDERMA (08:46)
--- NOTE | 2024-11-25 12:41 | PM.EVENT ---
Event Note Date of Service: 11/25/24 Event Note: For cellulitis, would recommend dose of keflex to be increased to 500 mg qid (order placed) Time Spent With Patient Time: Total time managing care of this patient today ____ minutes.
[2024-11-25 16:47] VITALS: BP 144/78
[2024-11-25 19:35] VITALS: BP 132/60; PULSE 120; RESP 16; TEMP 36.7; O2SAT 96
[2024-11-25] MEDS: Throat Lozenge, Medicated LOZENGE 1 LOZENGE MUCOUS MEM (21:32)
[2024-11-26 08:00] VITALS: BP 137/66; PULSE 125; TEMP 36.3
[2024-11-26 08:20] VITALS: PULSE 112
[2024-11-26 08:27] VITALS: BP 137/66
--- NOTE | 2024-11-26 16:31 | P.PNPSI_ITS ---
Subjective Subjective Date of Service: 11/26/24 Reason For Visit: Depressive D/O Schizoaffective Interim History: Met with patient; discussed with team Patient remains manic, intrusive, grandiose, tangential. Patient is intrusive to the point where some peers are getting very angry and some feeling provoked. Mental Status Exam Mental Status Exam Narrative: Pt is alert and oriented; behavior is still manic, hyperverbal, intrusive with peers and staff; able to be redirected with much effort; patient is not in distress; dressed in casual attire, unkempt; bilateral hand tremor; marginal hygiene; mood is described as good and affect somewhat expansive; eye contact appropriate; Speech still pressured, rambling; moderate psychomotor agitation present; thought process can be goal oriented, but also tangential; Thought content with grandiose delusions; denies any SI/HI. Denies AVH Patients insight and judgment impaired Diagnostics Vital Signs (24Hr): Vital Signs - 24 hr 11/25/24 16:47 11/25/24 19:35 11/26/24 08:00 Temperature 98.1 F 97.3 F Pulse Rate 120 H 125 H Respiratory Rate 16 Blood Pressure 144/78 H 132/60 137/66 Pulse Oximetry 96 Oxygen Delivery Method Room Air Room Air 11/26/24 08:20 11/26/24 08:27 Temperature Pulse Rate 112 H Respiratory Rate Blood Pressure 137/66 Pulse Oximetry Oxygen Delivery Method BMI result Body Mass Index 36.6 Labs 11/17/24 07:53 Medications Medications Current Medications Acetaminophen (Acetaminophen 325 Mg Tablet) 650 mg PO Q6H PRN PRN Reason: Headache/Pain, Scale 1-10 Last Admin: 11/25/24 21:37 Dose: 650 mg Al Hydroxide/Mg Hydroxide (Magnesium Hydrox/Alum Hydrox 30 Ml Oral.Susp) 30 ml PO Q6H PRN PRN Reason: Heartburn/Nausea Last Admin: 11/21/24 01:55 Dose: 30 ml Benzocaine (Throat Lozenge, Medicated Lozenge) 1 lozenge MUCOUS MEM Q2H PRN PRN Reason: Sore Throat Last Admin: 11/25/24 21:32 Dose: 1 lozenge Bupropion HCl (Bupropion Hcl Xl 300 Mg Tab.Er.24h) 300 mg PO DAILY [facility] On Hold: 11/21/24 09:50 Last Admin: 11/21/24 09:03 Dose: 300 mg Capsaicin (Capsaicin 0.025% Cream 60 Gm Tube) 1 appl TOPICAL TID PRN; Protocol PRN Reason: leg pain Last Admin: 11/25/24 21:32 Dose: 1 appl Cephalexin HCl (Cephalexin 500 Mg Capsule) 500 mg PO QID [facility] Stop: 12/02/24 12:59 Last Admin: 11/26/24 12:19 Dose: 500 mg Chlorpromazine HCl (Chlorpromazine Hcl 100 Mg Tablet) 200 mg PO TID [facility] Last Admin: 11/26/24 13:07 Dose: 200 mg Clonidine HCl (Clonidine Hcl 0.1 Mg Tablet) 0.1 mg PO Q4H PRN; Protocol PRN Reason: moderate anxiety Last Admin: 11/26/24 08:27 Dose: 0.1 mg Clozapine (Clozapine 100 Mg Tablet) 400 mg PO BEDTIME [facility] Last Admin: 11/25/24 20:38 Dose: 400 mg Diazepam (Diazepam 5 Mg Tablet) 15 mg PO TID [facility] Last Admin: 11/26/24 13:06 Dose: 15 mg Divalproex Sodium (Divalproex Sodium Er 500 Mg Tab.Er.24h) 2,500 mg PO BEDTIME [facility] Docusate Sodium (Docusate Sodium 100 Mg Capsule) 100 mg PO BID [facility] Last Admin: 11/26/24 08:27 Dose: 100 mg Fenofibrate (Fenofibrate 160 Mg Tablet) 160 mg PO DAILY [facility] Last Admin: 11/26/24 08:26 Dose: 160 mg Fluticasone Propionate (Fluticasone Propionate Nasal 16 Gm [place]) 1 spray NOSTRIL-B BEDTIME [facility] Last Admin: 11/25/24 21:32 Dose: 1 spray Fluticasone Propionate (Fluticasone Propionate Nasal 16 Gm [place]) 1 spray NOSTRIL-B DAILY PRN PRN Reason: Nasal allergy Last Admin: 11/24/24 06:25 Dose: 1 spray Hydroxyzine HCl (Hydroxyzine Hcl 25 Mg Tablet) 25 mg PO Q6H PRN PRN Reason: mild anxiety Last Admin: 11/26/24 03:21 Dose: 25 mg Hydroxyzine HCl (Hydroxyzine Hcl 50 Mg Tablet) 50 mg PO BID [facility] Last Admin: 11/26/24 08:26 Dose: 50 mg Ibuprofen (Ibuprofen 400 Mg Tablet) 400 mg PO Q6H PRN PRN Reason: Pain, Moderate(Pain Scale 4-6) Last Admin: 11/25/24 16:47 Dose: 400 mg Lorazepam (Lorazepam 1 Mg Tablet) 1 mg PO Q8H PRN PRN Reason: Anxiety Last Admin: 11/26/24 09:42 Dose: 1 mg Magnesium Hydroxide (Milk Of Magnesia 30 Ml Oral.Susp) 30 ml PO DAILY PRN PRN Reason: Constipation Nicotine (Nicotine 21 Mg Patch.Td24) 21 mg TRANSDERMA DAILY PRN PRN Reason: smoking cessation Last Admin: 11/25/24 08:46 Dose: 21 mg Nicotine Polacrilex (Nicotine Polacrilex 2 Mg Gum) 4 mg BUCCAL Q2H PRN PRN Reason: Nicotine Cravings Last Admin: 11/24/24 16:21 Dose: 4 mg Risperidone (Risperidone 2 Mg Tablet) 4 mg PO BEDTIME [facility] Last Admin: 11/25/24 20:38 Dose: 4 mg Risperidone (Risperidone 1 Mg Tablet) 1 mg PO DAILY [facility] Last Admin: 11/26/24 08:26 Dose: 1 mg Trazodone HCl (Trazodone Hcl 50 Mg Tablet) 50 mg PO BEDTIME MRX1 PRN PRN Reason: Insomnia Last Admin: 11/26/24 03:18 Dose: 50 mg Allergies Allergies Allergy/AdvReac Type Severity Reaction Status Date / Time benztropine (From COGENT[facility]) Allergy Unknown UNKNOWN Verified 11/16/24 15:51 propranolol (From INDERAL [place]) Allergy Unknown UNKNOWN Verified 11/16/24 15:51 chaste tree Allergy Unknown Verified 11/16/24 15:51 lithium Allergy Unknown Verified 11/16/24 15:51 Assessment & Plan Assessment & Plan (1) Schizoaffective disorder, bipolar type: Status: Acute Code(s): F25.0 - Schizoaffective disorder, bipolar type (2) Autism spectrum disorder: Status: Acute Code(s): F84.0 - Autistic disorder (3) Cellulitis: Status: Acute Code(s): L03.90 - Cellulitis, unspecified (4) Class 3 obesity: Status: Acute Code(s): E66.813 - Obesity, class 3 Plan Patient is a 34-year-old male with history of schizoaffective disorder bipolar type, Autism Spectrum Disorder, who lives in a residential, on a [facility] [place] who presents for depression. Patient reports that every 7 weeks (and every 4 months) medications don't work...and I feel depressed.... He says the the depression last anywhere from 2 to 12 days.. And then resolves on it's own without medication changes. Patient reports that he had suicidal ideation a few days ago, no plan but does not now. Patient says sometimes he hears sounds or voices that others do not hear, sometimes laughing noise but not very often and usually just during sleep. Discussed medication regimen and patient said that recently his Depakote was increased because he was having mood swings but it was difficult for him to give details. Discussed medication options and patient agrees to increase Wellbutrin to 450 mg. Formulation/clinical reasoning: Patient reports that episodically he still gets bouts of depression that can last for longer than a week however this seemed to resolve on their own. He is not sure what triggers them. Patient says he is already feeling better now that he is on the unit because of the friendships and interactions he has made since coming to the unit; patient signed a 3 day notice. Discussed medication options and patient agrees to increase Wellbutrin to 450 mg. Loan Specialist wonders if perhaps patient can remain at Wellbutrin 300 mg and just take the extra 150 mg if he starts to feel depressed, sort of as an episodic p.r.n. -patient currently on 2 antipsychotics, including Clozaril and Risperdal; -some TD and pill rolling b/l hand tremor observed; wonder if Risperdal dose could be lowered; consider Aristeo Of note patient had severely high Triacylglycerides of 898. It appears to have been taken while patient fasting however patient is not sure. TAG this high puts patient at risk for pancreatitis. Will redraw labs tomorrow morning to ensure fasting however for now will treat as if this is an accurate lab Hospital course: 11/18: Continue current management and treatment plan. 11/19: Increase Depakote to 500 mg in AM and continue 1,000 mg HS. 11/20: continue current management and treatment plan. 11/21 Patient has become manic over the past several days. Additional Depakote dose was added but patient remains manic, grandiose, labile and intrusive. 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 Patient at 1 point broke down crying about the of his parents, saying that his mother was murdered but then saying she had a brain bleed.. Patient saying that he is from [place] and is going to go back and live his life and [place]... Initially demanding to be discharged today but was able to be redirected. Patient agrees to increased medications including adding Zyprexa -will hold Wellbutrin; seems likely that increasing Wellbutrin was what triggered manic episode -Increasing bedtime Depakote to 1250 mg -patient hardly slept last night and added Zyprexa 10 mg b.i.d.; plan is to discontinue once jacob subsides -reviewed labs and repeat cholesterol shows highly elevated TAG>500 though not as high as the day before 11/22 Patient did sleep some last night with added Zyprexa. Still manic but a little less intense and though still with some grandiose ideations, much less so. Patient still intrusive to others but redirectable. Patient did agree that he was acting manic yesterday but says he is fine now and wants to discharge. He persisted in demanding for discharge today and expressed frustration when told this is not possible but remained in behavioral control. -Great right toe with cellulitis; started on Keflex -Depakote labs ordered for Wednesday *patient is not stable to return to residential at this time. Will try to get him to retract his 3 day notice but will otherwise file for civil commitment; that said hopefully will not need to go to court and manic episode will resolve 11/23/24: Patient slept for 2 hours, was medication compliant. Denies side effect but observed have some hand tremors. Restless, racing thoughts, intrusive, poor boundaries, need multiple redirections most of the time to respect personal space. He is over friendly, bright, manic but appeared to be less manic compared to yesterday. Can be perseverative on discharge, redirectable and need to remind that he is not leaving today a couple of times. He retracted 3 day notice. He seems to be forgetful. To PRNs with mild to moderate effects. He works on puzzle, and cleaning up his room. He has an reasonable planning for the future, appeared to be grandiose no aggressive behavior, can be irritable at times when things not the way he requested. Continue to monitor for sleeping pattern. 11/24/24: Slept slightly improved compared to the night before, he was able to slept for 4 hours. Was medication compliant. Mood is I am happy. I am calm and relaxed . Reports foot pain, nursing have patient to put lotion on, encouraged to elevated legs when he resting as left food appear to be slightly swollen. He said he would like to go back to his residential. He also asked if he can call Carla and Max to apologize to them. Read direct patient not calling so many times that may annoying other persons. He admitted that he need to give them a break . Observe want time he was on the phone, appropriate. He is slightly better compared to yesterday, able to sit still, listen to advice/redirection. Even though he has delusional, and grandiose thoughts. Thinking he see a snake in his toilet, seeing his brother coming to see him. Per nursing he had unwitnessed fall when trying to put himself sitting down on the chair but missed it. Slightly better in term of manic behaviors, redirectable and less demanding. Redirected for personal space. Accepted it without any problems. 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 With much effort, Pt remains able to be redirected; examined great rt toe which remains with clear signs of cellulites -Start Ziprasidone -obtained EKG and qtc WNL -Depakote level with much room so will switch depakote to ER so can make at bedtime to help w/ sleep and will increase dose (Depakote IR 1750mg ~ Dep ER 2000) 11/26 Patient remains manic, intrusive, grandiose, tangential. Patient is intrusive to the point where some peers are getting very angry and some feeling provoked. -So far unable to break this manic episode; so far Zyprexa and Geodon have not affected patient and patient is in danger of unintentionally inciting peer aggression. -Thorazine 100 mg did not help either; will try Thorazine 200 mg t.i.d. combined with diazepam 15 mg t.i.d. (10mg did nothing) -if Thorazine does not help, will consider Haldol; also will soon get Depakote level and maybe able to increase other Plan: Three day notice due 11/23. Retracted it. Q 15 minute checks On [facility] ORDER/guardianship 1. Jacob Changed to Depakote ER 2500mg qhs Thorazine 200mg TID Diazpam 15mg TID; will taper and dc once jacob subsides DC Ziprasidone no effect Dc zyprexa; does not seem to do much Continue Risperdal 1 mg a.m. and 4 mg q.h.s. Continue Clozaril 400 mg q.h.s.; Level: 403 and Norclozaril 137. HOLD Wellbutrin XL (once jacob resolved likely re-titrate to Wellbutrin 300mg (likely increasing to 450mg triggered manic episode) STARTed Fenobibrate 160mg daily for severely elevated Triacylglycerides of 898 (pt has normal renal function) Continue other home medications -consider Ingrezza -adverse reaction to [place] (per patient) -consider Tegretol? 2. Great right toe cellulitis Increased to Keflex 500 mg qid for 7 days (discussed increased dose with hospitalist PA) 3. TAG 898 (appears to be fasting)/Cholesterol 319 re-ordered Lipid panel: Trilgyciride 898 down to 581 on 11/18/24. Cholesterol 319 down to 317. AIC 5.5 WNL. Started Fenobibrate 160mg daily (pt has normal renal function) Change diet to Low Fat diet will consider Statin Ordered TSH (lft's WNL): 0.81 WNL Patient educated on: diagnosis and medication risk/benefits Informed Consent: understands, does not understand and further education needed Reason for continued inpatient stay Substantial Risk for: inability to function Time Spent With Patient Time: Total time managing care of this patient today ____ minutes.
[2024-11-26 19:38] VITALS: BP 173/81; PULSE 128; RESP 20; TEMP 36.7; O2SAT 95
[2024-11-27 06:05] VITALS: BP 124/70; PULSE 117; TEMP 36.2; O2SAT 96
[2024-11-27 08:15] VITALS: BP 115/56; PULSE 132; TEMP 36.3; O2SAT 98
--- NOTE | 2024-11-27 12:06 | HO.PSYCHPN ---
Subjective Subjective Date of Service: 11/27/24 Reason For Visit: Depressive D/O Schizoaffective Interim History: Met with patient; discussed with team; discussed case with Dr. Vázquez Patient remains manic, grandiose, very intrusive with peers and staff, going into patient's rooms, walking up in into rejection himself, getting very close to people making people both angry and scared. Mental Status Exam Mental Status Exam Narrative: Pt is alert and oriented; behavior is still manic, hyperverbal, intrusive with peers and staff; able to be redirected with much effort; patient is not in distress; dressed in casual attire, unkempt; bilateral hand tremor; marginal hygiene; mood is described as good and affect somewhat expansive; eye contact appropriate; Speech still pressured, rambling; moderate psychomotor agitation present; thought process can be goal oriented, but also tangential; Thought content with grandiose delusions; denies any SI/HI. Denies AVH Patients insight and judgment impaired Diagnostics Vital Signs (24Hr): Vital Signs - 24 hr 11/26/24 19:38 11/27/24 06:05 11/27/24 08:15 Temperature 98.1 F 97.2 F 97.3 F Pulse Rate 128 H 117 H 132 H Respiratory Rate 20 Blood Pressure 173/81 H 124/70 115/56 L Pulse Oximetry 95 96 98 Oxygen Delivery Method Room Air Room Air Room Air BMI result Body Mass Index 36.6 Labs 11/28/24 10:37 Medications Medications Current Medications Acetaminophen (Acetaminophen 325 Mg Tablet) 650 mg PO Q6H PRN PRN Reason: Headache/Pain, Scale 1-10 Last Admin: 11/25/24 21:37 Dose: 650 mg Al Hydroxide/Mg Hydroxide (Magnesium Hydrox/Alum Hydrox 30 Ml Oral.Susp) 30 ml PO Q6H PRN PRN Reason: Heartburn/Nausea Last Admin: 11/21/24 01:55 Dose: 30 ml Benzocaine (Throat Lozenge, Medicated Lozenge) 1 lozenge MUCOUS MEM Q2H PRN PRN Reason: Sore Throat Last Admin: 11/25/24 21:32 Dose: 1 lozenge Bupropion HCl (Bupropion Hcl Xl 300 Mg Tab.Er.24h) 300 mg PO DAILY [facility] On Hold: 11/21/24 09:50 Last Admin: 11/21/24 09:03 Dose: 300 mg Capsaicin (Capsaicin 0.025% Cream 60 Gm Tube) 1 appl TOPICAL TID PRN; Protocol PRN Reason: leg pain Last Admin: 11/25/24 21:32 Dose: 1 appl Cephalexin HCl (Cephalexin 500 Mg Capsule) 500 mg PO QID [facility] Stop: 12/02/24 12:59 Last Admin: 11/27/24 08:29 Dose: 500 mg Chlorpromazine HCl (Chlorpromazine Hcl 100 Mg Tablet) 200 mg PO TID [facility] Last Admin: 11/27/24 08:26 Dose: 200 mg Clonidine HCl (Clonidine Hcl 0.1 Mg Tablet) 0.1 mg PO Q4H PRN; Protocol PRN Reason: moderate anxiety Last Admin: 11/27/24 06:07 Dose: 0.1 mg Clozapine (Clozapine 100 Mg Tablet) 400 mg PO BEDTIME [facility] Last Admin: 11/26/24 20:47 Dose: 400 mg Diazepam (Diazepam 5 Mg Tablet) 15 mg PO TID [facility] Last Admin: 11/27/24 08:26 Dose: 15 mg Divalproex Sodium (Divalproex Sodium Er 500 Mg Tab.Er.24h) 3,000 mg PO BEDTIME [facility] Last Admin: 11/26/24 20:50 Dose: 3,000 mg Docusate Sodium (Docusate Sodium 100 Mg Capsule) 100 mg PO BID [facility] Last Admin: 11/27/24 08:25 Dose: 100 mg Fenofibrate (Fenofibrate 160 Mg Tablet) 160 mg PO DAILY [facility] Last Admin: 11/27/24 08:25 Dose: 160 mg Fluticasone Propionate (Fluticasone Propionate Nasal 16 Gm [place]) 1 spray NOSTRIL-B BEDTIME [facility] Last Admin: 11/26/24 20:46 Dose: 1 spray Fluticasone Propionate (Fluticasone Propionate Nasal 16 Gm [place]) 1 spray NOSTRIL-B DAILY PRN PRN Reason: Nasal allergy Last Admin: 11/24/24 06:25 Dose: 1 spray Glycopyrrolate (Glycopyrrolate 1 Mg Tablet) 1 mg PO ONCE ONE Stop: 11/27/24 12:03 Glycopyrrolate (Glycopyrrolate 1 Mg Tablet) 1 mg PO TID [facility] Hydroxyzine HCl (Hydroxyzine Hcl 25 Mg Tablet) 25 mg PO Q6H PRN PRN Reason: mild anxiety Last Admin: 11/26/24 03:21 Dose: 25 mg Hydroxyzine HCl (Hydroxyzine Hcl 50 Mg Tablet) 50 mg PO BID [facility] Last Admin: 11/27/24 08:26 Dose: 50 mg Ibuprofen (Ibuprofen 400 Mg Tablet) 400 mg PO Q6H PRN PRN Reason: Pain, Moderate(Pain Scale 4-6) Last Admin: 11/25/24 16:47 Dose: 400 mg Lorazepam (Lorazepam 1 Mg Tablet) 1 mg PO Q8H PRN PRN Reason: Anxiety Last Admin: 11/27/24 08:25 Dose: 1 mg Magnesium Hydroxide (Milk Of Magnesia 30 Ml Oral.Susp) 30 ml PO DAILY PRN PRN Reason: Constipation Nicotine (Nicotine 21 Mg Patch.Td24) 21 mg TRANSDERMA DAILY PRN PRN Reason: smoking cessation Last Admin: 11/25/24 08:46 Dose: 21 mg Nicotine Polacrilex (Nicotine Polacrilex 2 Mg Gum) 4 mg BUCCAL Q2H PRN PRN Reason: Nicotine Cravings Last Admin: 11/24/24 16:21 Dose: 4 mg Risperidone (Risperidone 2 Mg Tablet) 4 mg PO BEDTIME [facility] Last Admin: 11/26/24 20:47 Dose: 4 mg Risperidone (Risperidone 1 Mg Tablet) 1 mg PO DAILY [facility] Last Admin: 11/27/24 08:26 Dose: 1 mg Tamoxifen Citrate (Tamoxifen Citrate 10 Mg Tablet) 80 mg PO DAILY [facility] On Hold: 11/27/24 10:43 Trazodone HCl (Trazodone Hcl 50 Mg Tablet) 50 mg PO BEDTIME MRX1 PRN PRN Reason: Insomnia Last Admin: 11/26/24 03:18 Dose: 50 mg Allergies Allergies Allergy/AdvReac Type Severity Reaction Status Date / Time benztropine (From COG[facility]) Allergy Unknown UNKNOWN Verified 11/16/24 15:51 propranolol (From [facility]DERAL [place]) Allergy Unknown UNKNOWN Verified 11/16/24 15:51 chaste tree Allergy Unknown Verified 11/16/24 15:51 lithium Allergy Unknown Verified 11/16/24 15:51 Assessment & Plan Assessment & Plan (1) Schizoaffective disorder, bipolar type: Status: Acute Code(s): F25.0 - Schizoaffective disorder, bipolar type (2) Autism spectrum disorder: Status: Acute Code(s): F84.0 - Autistic disorder (3) Cellulitis: Status: Acute Code(s): L03.90 - Cellulitis, unspecified (4) Class 3 obesity: Status: Acute Code(s): E66.813 - Obesity, class 3 Plan Patient is a 34-year-old male with history of schizoaffective disorder bipolar type, Autism Spectrum Disorder, who lives in [place] [facility], on a community [place] who presents for depression. Patient reports that every 7 weeks (and every 4 months) medications don't work...and I feel depressed.... He says the the depression last anywhere from 2 to 12 days.. And then resolves on it's own without medication changes. Patient reports that he had suicidal ideation a few days ago, no plan but does not now. Patient says sometimes he hears sounds or voices that others do not hear, sometimes laughing noise but not very often and usually just during sleep. Discussed medication regimen and patient said that recently his Depakote was increased because he was having mood swings but it was difficult for him to give details. Discussed medication options and patient agrees to increase Wellbutrin to 450 mg. Formulation/clinical reasoning: Patient reports that episodically he still gets bouts of depression that can last for longer than a week however this seemed to resolve on their own. He is not sure what triggers them. Patient says he is already feeling better now that he is on the unit because of the friendships and interactions he has made since coming to the unit; patient signed a 3 day notice. Discussed medication options and patient agrees to increase Wellbutrin to 450 mg. Presales Engineer wonders if perhaps patient can remain at Wellbutrin 300 mg and just take the extra 150 mg if he starts to feel depressed, sort of as an episodic p.r.n. -patient currently on 2 antipsychotics, including Clozaril and Risperdal; -some TD and pill rolling b/l hand tremor observed; wonder if Risperdal dose could be lowered; consider Ingrezza Of note patient had severely high Triacylglycerides of 898. It appears to have been taken while patient fasting however patient is not sure. TAG this high puts patient at risk for pancreatitis. Will redraw labs tomorrow morning to ensure fasting however for now will treat as if this is an accurate lab Hospital course: 11/18: Continue current management and treatment plan. 11/19: Increase Depakote to 500 mg in AM and continue 1,000 mg HS. 11/20: continue current management and treatment plan. 11/21 Patient has become manic over the past several days. Additional Depakote dose was added but patient remains manic, grandiose, labile and intrusive. 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 Patient at 1 point broke down crying about the of his parents, saying that his mother was murdered but then saying she had a brain bleed.. Patient saying that he is from [place] and is going to go back and live his life and [place]... Initially demanding to be discharged today but was able to be redirected. Patient agrees to increased medications including adding Zyprexa -will hold Wellbutrin; seems likely that increasing Wellbutrin was what triggered manic episode -Increasing bedtime Depakote to 1250 mg -patient hardly slept last night and added Zyprexa 10 mg b.i.d.; plan is to discontinue once jacob subsides -reviewed labs and repeat cholesterol shows highly elevated TAG>500 though not as high as the day before 11/22 Patient did sleep some last night with added Zyprexa. Still manic but a little less intense and though still with some grandiose ideations, much less so. Patient still intrusive to others but redirectable. Patient did agree that he was acting manic yesterday but says he is fine now and wants to discharge. He persisted in demanding for discharge today and expressed frustration when told this is not possible but remained in behavioral control. -Great right toe with cellulitis; started on Keflex -Depakote labs ordered for Wednesday *patient is not stable to return to [place] [facility] at this time. Will try to get him to retract his 3 day notice but will otherwise file for civil commitment; that said hopefully will not need to go to court and manic episode will resolve 11/23/24: Patient slept for 2 hours, was medication compliant. Denies side effect but observed have some hand tremors. Restless, racing thoughts, intrusive, poor boundaries, need multiple redirections most of the time to respect personal space. He is over friendly, bright, manic but appeared to be less manic compared to yesterday. Can be perseverative on discharge, redirectable and need to remind that he is not leaving today a couple of times. He retracted 3 day notice. He seems to be forgetful. To PRNs with mild to moderate effects. He works on puzzle, and cleaning up his room. He has an reasonable planning for the future, appeared to be grandiose no aggressive behavior, can be irritable at times when things not the way he requested. Continue to monitor for sleeping pattern. 11/24/24: Slept slightly improved compared to the night before, he was able to slept for 4 hours. Was medication compliant. Mood is I am happy. I am calm and relaxed . Reports foot pain, nursing have patient to put lotion on, encouraged to elevated legs when he resting as left food appear to be slightly swollen. He said he would like to go back to his [place] [facility] [place]. He also asked if he can call Carla and Max to apologize to them. Read direct patient not calling so many times that may annoying other persons. He admitted that he need to give them a break . Observe want time he was on the phone, appropriate. He is slightly better compared to yesterday, able to sit still, listen to advice/redirection. Even though he has delusional, and grandiose thoughts. Thinking he see a snake in his toilet, seeing his brother coming to see him. Per nursing he had unwitnessed fall when trying to put himself sitting down on the chair but missed it. Slightly better in term of manic behaviors, redirectable and less demanding. Redirected for personal space. Accepted it without any problems. 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 With much effort, Pt remains able to be redirected; examined great rt toe which remains with clear signs of cellulites -Start Ziprasidone -obtained EKG and qtc WNL -Depakote level with much room so will switch depakote to ER so can make at bedtime to help w/ sleep and will increase dose (Depakote IR 1750mg ~ Dep ER 2000) 11/26 Patient remains manic, intrusive, grandiose, tangential. Patient is intrusive to the point where some peers are getting very angry and some feeling provoked. -So far unable to break this manic episode; so far Zyprexa and Geodon have not affected patient and patient is in danger of unintentionally inciting peer aggression. -Thorazine 100 mg did not help either; will try Thorazine 200 mg t.i.d. combined with diazepam 15 mg t.i.d. (10mg did nothing) -if Thorazine does not help, will consider Haldol; also will soon get Depakote level and maybe able to increase other 11/27 Patient remains manic, grandiose, very intrusive with peers and staff, going into patient's rooms, walking up in into rejection himself, getting very close to people making people both angry and scared. Difficult decisions regarding treatment. Discussed case with Dr. Vázquez who agrees with plan For now, will discontinue Thorazine and Valium as life insurance underwriter is somewhat concern that all this sedating medication could add on a delirium to his already manic behaviors. Instead, will try Trileptal to help break manic episode; Trileptal has the least side effect risk profile of options so will give it a try (though not very robust evidence) -Considering Tegretol however this will lower the effective dose of both clozapine and Risperdal by 50% or more creating a confusing treatment regimen; also can affect the liver and bone marrow and patient is already on Depakote and Clozaril -also considering Haldol however patient is already on 2 antipsychotics -also considering Tamoxifen used off-label however increases thrombo embolism risk and can raise the effective doses of clozapine and Risperdal ECT remains the gold standard to treat refractory jacob however patient has a guardian and [place] which would need to be amended Plan: cv Q 15 minute checks On community [place] ORDER/guardianship 1. Jacob Adding Trileptal 300 mg t.i.d. Continue Depakote ER 3000 mg qhs -will get lab DC Thorazine 200mg TID DC Diazpam 10mg TID; will taper and dc once jacob subsides DC Ziprasidone no effect Dc zyprexa; does not seem to do much Continue Risperdal 1 mg a.m. and 4 mg q.h.s. Continue Clozaril 400 mg q.h.s.; Level: 403 and Norclozaril 137. HOLD Wellbutrin XL (once jacob resolved likely re-titrate to Wellbutrin 300mg (likely increasing to 450mg triggered manic episode) STARTed Fenobibrate 160mg daily for severely elevated Triacylglycerides of 898 (pt has normal renal function) Continue other home medications -consider Ingrezza -adverse reaction to Barry (per patient) -consider Tegretol? 2. Great right toe cellulitis Increased to Keflex 500 mg qid for 7 days (discussed increased dose with hospitalist MARIA T) -examined and cellulitis seems to be resolving 3. TAG 898 (appears to be fasting)/Cholesterol 319 re-ordered Lipid panel: Trilgyciride 898 down to 581 on 11/18/24. Cholesterol 319 down to 317. AIC 5.5 WNL. Started Fenobibrate 160mg daily (pt has normal renal function) Change diet to Low Fat diet will consider Statin Ordered TSH (lft's WNL): 0.81 WNL Patient educated on: diagnosis, medication risk/benefits and therapeutic strategies Informed Consent: understands, does not understand and further education needed Reason for continued inpatient stay Substantial Risk for: harm to self, harm to others and inability to function Time Spent With Patient Time: Total time managing care of this patient today ____ minutes.
[2024-11-27 20:00] VITALS: BP 139/63; PULSE 122; RESP 20; TEMP 37.1; O2SAT 96
--- NOTE | 2024-11-28 | ECG_ITS ---
Test Reason : QTC Blood Pressure : */* mmHG Vent. Rate : 115 BPM Atrial Rate : 115 BPM P-R Int : 132 ms QRS Dur : 78 ms QT Int : 358 ms P-R-T Axes : 60 10 73 degrees QTcB Int : 495 ms Sinus tachycardia Nonspecific ST and T wave abnormality Abnormal ECG When compared with ECG of 25-Nov-2024 13:59, No significant change was found Referred By: Asif Valencia Electronically Signed By: APOLINAR MCMAHON MD
[2024-11-28 08:00] VITALS: BP 151/81; PULSE 121; RESP 18; TEMP 36.3; O2SAT 98
--- NOTE | 2024-11-28 10:52 | HO.ECT-CONS ---
History of Present Illness Data of Consult Service Date: 11/28/24 Primary Care Provider: Isra King MD [facility] Reason for consult: ECT clearance 34-year-old male with a past medical history significant for autism spectrum disorder, schizophrenia and history is C-spine fusion, admitted to adult Psychiatry M5 from [facility]. Patient reported increased anxiety and depression with SI without plan. He is admitted to for further treatment. Patient is being seen for ECT consult. He denies any medical concerns currently including chest pain, shortness of breath, nausea, vomiting, abdominal pain, URI symptoms, urinary symptoms or numbness/tingling. 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 He is laying in bed, rearranged his mattress. He has a fungal toenail on the left great toe without pain, erythema, edema or purulent drainage. He denies any history of head injury, seizure. Denies any cardiac history or pulmonary history. Patient is difficult to follow and stay on task to answer questions, poor historian. Patient was started on glycopyrrolate due to excess drooling. Review of Systems Review of Systems: Denies any shortness of breath, chest pain, dizziness, lightheadedness, abdominal pain or discomfort, nausea vomiting or diarrhea [facility] Medical History (Updated 11/22/24 @ 16:33 by Asif Valencia MD) Schizoaffective disorder, bipolar type Functional capacity: independent ambulation Social History Household Members: Other Household Members Other:: halfway Housing: Other Housing Other:: halfway Do you presently have visiting nurse or other home services: Yes Patient Tobacco Use Status: Never used Tobacco Currently Displaying Signs/Symptoms of Drug Intoxication Withdrawal: No Have you been hit, kicked, punched, or otherwise hurt by someone within the past year? If so, by whom?: No Do you feel safe in your current relationship?: No Current Relationship Is there a partner from a previous relationship who is making you feel unsafe now?: No Are you made to feel afraid or neglected: No Spiritual Healthcare Practices: None Faith Healthcare Practices: None Cultural Healthcare Practices: None Advance Directives: No Advance Directives Information Provided: Yes Do you have thoughts of harming others: None Do you have a plan to hurt others: No Plan Recently lost weight without trying: No Nutrition Risks: Dental problems and Difficulty chewing Poor oral hygiene: No service: No Sexual orientation: Straight/Heterosexual Meds Allergies Allergy/AdvReac Type Severity Reaction Status Date / Time benztropine (From COGENTIN) Allergy Unknown UNKNOWN Verified 11/16/24 15:51 propranolol (From [facility]DERAL [facility]) Allergy Unknown UNKNOWN Verified 11/16/24 15:51 chaste tree Allergy Unknown Verified 11/16/24 15:51 lithium Allergy Unknown Verified 11/16/24 15:51 Active Medications: Current Medications Acetaminophen (Acetaminophen 325 Mg Tablet) 650 mg PO Q6H PRN PRN Reason: Headache/Pain, Scale 1-10 Last Admin: 11/25/24 21:37 Dose: 650 mg Al Hydroxide/Mg Hydroxide (Magnesium Hydrox/Alum Hydrox 30 Ml Oral.Susp) 30 ml PO Q6H PRN PRN Reason: Heartburn/Nausea Last Admin: 11/21/24 01:55 Dose: 30 ml Benzocaine (Throat Lozenge, Medicated Lozenge) 1 lozenge MUCOUS MEM Q2H PRN PRN Reason: Sore Throat Last Admin: 11/25/24 21:32 Dose: 1 lozenge Bupropion HCl (Bupropion Hcl Xl 300 Mg Tab.Er.24h) 300 mg PO DAILY [facility] On Hold: 11/21/24 09:50 Last Admin: 11/21/24 09:03 Dose: 300 mg Capsaicin (Capsaicin 0.025% Cream 60 Gm Tube) 1 appl TOPICAL TID PRN; Protocol PRN Reason: leg pain Last Admin: 11/25/24 21:32 Dose: 1 appl Cephalexin HCl (Cephalexin 500 Mg Capsule) 500 mg PO QID [facility] Stop: 12/02/24 12:59 Last Admin: 11/28/24 08:27 Dose: 500 mg Chlorpromazine HCl (Chlorpromazine Hcl 100 Mg Tablet) 200 mg PO TID [facility] Clonidine HCl (Clonidine Hcl 0.1 Mg Tablet) 0.1 mg PO Q4H PRN; Protocol PRN Reason: moderate anxiety Last Admin: 11/27/24 06:07 Dose: 0.1 mg Clozapine (Clozapine 100 Mg Tablet) 400 mg PO BEDTIME [facility] Last Admin: 11/27/24 21:40 Dose: 400 mg Diazepam (Diazepam 5 Mg Tablet) 10 mg PO TID [facility] Last Admin: 11/28/24 10:25 Dose: 10 mg Divalproex Sodium (Divalproex Sodium Er 500 Mg Tab.Er.24h) 3,000 mg PO BEDTIME [facility] Last Admin: 11/27/24 21:38 Dose: 3,000 mg Docusate Sodium (Docusate Sodium 100 Mg Capsule) 100 mg PO BID [facility] Last Admin: 11/28/24 08:28 Dose: 100 mg Fenofibrate (Fenofibrate 160 Mg Tablet) 160 mg PO DAILY [facility] Last Admin: 11/28/24 08:26 Dose: 160 mg Fluticasone Propionate (Fluticasone Propionate Nasal 16 Gm Jackson) 1 spray NOSTRIL-B BEDTIME [facility] Last Admin: 11/27/24 23:42 Dose: Not Given Fluticasone Propionate (Fluticasone Propionate Nasal 16 Gm Jackson) 1 spray NOSTRIL-B DAILY PRN PRN Reason: Nasal allergy Last Admin: 11/24/24 06:25 Dose: 1 spray Glycopyrrolate (Glycopyrrolate 1 Mg Tablet) 1 mg PO TID [facility] Last Admin: 11/28/24 10:24 Dose: Not Given Hydroxyzine HCl (Hydroxyzine Hcl 25 Mg Tablet) 25 mg PO Q6H PRN PRN Reason: mild anxiety Last Admin: 11/26/24 03:21 Dose: 25 mg Hydroxyzine HCl (Hydroxyzine Hcl 50 Mg Tablet) 50 mg PO BID [facility] Last Admin: 11/28/24 08:25 Dose: 50 mg Ibuprofen (Ibuprofen 400 Mg Tablet) 400 mg PO Q6H PRN PRN Reason: Pain, Moderate(Pain Scale 4-6) Last Admin: 11/25/24 16:47 Dose: 400 mg Lorazepam (Lorazepam 1 Mg Tablet) 1 mg PO Q8H PRN PRN Reason: Anxiety Last Admin: 11/28/24 08:26 Dose: 1 mg Magnesium Hydroxide (Milk Of Magnesia 30 Ml Oral.Susp) 30 ml PO DAILY PRN PRN Reason: Constipation Nicotine (Nicotine 21 Mg Patch.Td24) 21 mg TRANSDERMA DAILY PRN PRN Reason: smoking cessation Last Admin: 11/25/24 08:46 Dose: 21 mg Nicotine Polacrilex (Nicotine Polacrilex 2 Mg Gum) 4 mg BUCCAL Q2H PRN PRN Reason: Nicotine Cravings Last Admin: 11/24/24 16:21 Dose: 4 mg Oxcarbazepine (Oxcarbazepine 300 Mg Tablet) 300 mg PO TID [facility] Last Admin: 11/28/24 08:25 Dose: 300 mg Risperidone (Risperidone 2 Mg Tablet) 4 mg PO BEDTIME [facility] Last Admin: 11/27/24 21:37 Dose: 4 mg Risperidone (Risperidone 1 Mg Tablet) 1 mg PO DAILY [facility] Last Admin: 11/28/24 08:26 Dose: 1 mg Tamoxifen Citrate (Tamoxifen Citrate 10 Mg Tablet) 80 mg PO DAILY [facility] On Hold: 11/27/24 10:43 Last Admin: 11/27/24 21:43 Dose: Not Given Trazodone HCl (Trazodone Hcl 50 Mg Tablet) 50 mg PO BEDTIME MRX1 PRN PRN Reason: Insomnia Last Admin: 11/27/24 21:40 Dose: 50 mg Home Medications ?Medication ?Instructions ?Recorded ?Confirmed ?Last Taken ?Type bupropion HCl 300 mg 24 hr tablet, 300 mg PO DAILY 11/16/24 11/16/24 Unknown History extended release clozapine 200 mg tablet 400 mg PO BEDTIME 11/16/24 11/16/24 Unknown History divalproex 500 mg tablet,delayed 1,000 mg PO BEDTIME 11/16/24 11/16/24 Unknown History release docusate sodium 100 mg capsule 100 mg PO BID 11/16/24 11/16/24 Unknown History fluticasone propionate 50 1 spray intranasal DAILY 11/16/24 11/16/24 Unknown History mcg/actuation nasal spray,suspension hydroxyzine pamoate 50 mg capsule 50 mg PO BID 11/16/24 11/16/24 Unknown History lorazepam 1 mg tablet 1 mg PO Q8H PRN anxiety 11/16/24 11/16/24 Unknown History risperidone 1 mg tablet 1 mg PO QAM 11/16/24 11/16/24 Unknown History risperidone 4 mg tablet 4 mg PO BEDTIME 11/16/24 11/16/24 Unknown History Physical Exam Vital Signs and Narrative: Vital Signs: Last Vital Signs Temp 97.3 F 11/28/24 08:00 Pulse 121 H 11/28/24 08:00 Resp 18 11/28/24 08:00 BP 151/81 H 11/28/24 08:00 Pulse Ox 98 11/28/24 08:00 O2 Del Method Room Air 11/28/24 08:00 BMI result Body Mass Index 36.6 CONST: Alert and oriented, in NAD. Well nourished HEENT: Normocephalic, atraumatic, MMM, Eyes clear, Neck supple RESP: Lungs clear, RRR even and regular HEART:,RRR, S1, S2. No murmur, no edema GI:Abdomen Soft NT, ND. + BS times four :Deferred SKIN: Warm dry and intact, no visible lesions or rashes NEURO:CN II-XII Intact bilaterally, Sensation intact. Speech clear PSYCH:Speech rapid, delusional. Results Labs 11/28/24 10:37 Assessment and Plan (1) Schizoaffective disorder, bipolar type: Status: Acute Plan Patient is a 34-year-old male with a past medical history significant for autism spectrum disorder, schizophrenia and history is C-spine fusion, admitted to adult Psychiatry M5 from [facility]. Patient is being seen for ECT clearance Schizoaffective disorder, bipolar type/autism spectrum disorder Treatment per psychiatry team Plan is for ECT L great toenail fungal infection FU with [facility] outpatient-Will need nail removed Continues on cephalexin, toe without evidence of infection today. Denies any pain Class 3 obesity BMI 36.2 Weight loss encouraged Hypertriglyceridemia/hyperlipidemia Patient started on fenofibrate on November 17 Expect levels to decrease in 2-4 weeks We will recheck lipid level Patient may also need moderate intensity statin based on LDL level Excessive drooling May place patient at risk for aspiration, status post ECT treatment We will obtain speech language eval Started on glycopyrrolate. ECT risk stratification RCRI 0 points, no further cardiac workup or treatment indicated at this time. Patient denies any previous anesthesia EKG showing QTc 489, no evidence of ischemic changes. Based on stated PMH, HPI, and physical exam. There are no obvious contraindications to the planned procedure. Thank you for allowing me to participate in the patients care. Signing off. Please contact the medical team if any questions or concerns.
[2024-11-28 11:02] LABS: Ammonia 34 umol/L (13-55)
[2024-11-28 11:37] LABS: Alanine Aminotransferase 28 U/L (0-40); Albumin Level 4.2 g/dL (3.5-5.0); Alkaline Phosphatase 65 U/L (39-117); Anion Gap 13 (12-20); Aspartate Amino Transferase 53 U/L (5-37); Blood Urea Nitrogen 18 mg/dL (9-16); Calcium 9.2 mg/dL (8.4-10.2); Carbon Dioxide 27 mmol/L (22-29); Chloride 106 mmol/L (96-108); Creatinine Clr Calc Pharmacy 136.8; Estimated Glomerular Filt Rate > 60; Potassium 3.7 mmol/L (3.3-5.1); Sodium 142 mmol/L (135-145); Total Protein 7.4 g/dL (6.5-8.0)
[2024-11-28] MEDS: Milk of Magnesia 30 ML ORAL.SUSP PO (14:32)
--- NOTE | 2024-11-28 14:52 | PC.NURSE ---
[facility] Valencia aware. No new orders at this time.
--- NOTE | 2024-11-28 16:46 | P.PNPSI_ITS ---
Subjective Subjective Date of Service: 11/28/24 Reason For Visit: Depressive D/O Schizoaffective Interim History: met with patient; discussed with team Patient angry, punching the wall, yelling aggressively, peers is getting scared; 1 peer felt threatened and confronted patient pushed him but both were able to be redirected. Remains floridly manic, hyperverbal, intrusive... He did say yes to ECT however understands guardian needs to weigh in Mental Status Exam Mental Status Exam Narrative: Pt is alert and oriented; behavior is still manic, hyperverbal, intrusive with peers and staff; able to be redirected with much effort; patient is not in distress; dressed in casual attire, unkempt; bilateral hand tremor; marginal hygiene; mood is described as good and affect somewhat expansive; eye contact appropriate; Speech still pressured, rambling; moderate psychomotor agitation present; thought process can be goal oriented, but also tangential; Thought content with grandiose delusions; denies any SI/HI. Denies AVH Patients insight and judgment impaired Diagnostics Vital Signs (24Hr): Vital Signs - 24 hr 11/27/24 20:00 11/28/24 08:00 Temperature 98.8 F 97.3 F Pulse Rate 122 H 121 H Respiratory Rate 20 18 Blood Pressure 139/63 151/81 H Pulse Oximetry 96 98 Oxygen Delivery Method Room Air Room Air BMI result Body Mass Index 36.6 Labs 11/28/24 10:37 Labs: Laboratory Results - last 48 hr 11/28/24 10:37 Sodium 142 Potassium 3.7 Chloride 106 Carbon Dioxide 27 Anion Gap 13 BUN 18 H Creatinine 0.98 Estim Creat Clear Calc 136.8 Estimated GFR > 60 Random Glucose 116 H Calcium 9.2 Total Bilirubin 0.3 AST 53 H ALT 28 Alkaline Phosphatase 65 Ammonia 34 Total Protein 7.4 Albumin 4.2 Valproic Acid 108.9 H Medications Medications Current Medications Acetaminophen (Acetaminophen 325 Mg Tablet) 650 mg PO Q6H PRN PRN Reason: Headache/Pain, Scale 1-10 Last Admin: 11/28/24 16:17 Dose: 650 mg Al Hydroxide/Mg Hydroxide (Magnesium Hydrox/Alum Hydrox 30 Ml Oral.Susp) 30 ml PO Q6H PRN PRN Reason: Heartburn/Nausea Last Admin: 11/21/24 01:55 Dose: 30 ml Benzocaine (Throat Lozenge, Medicated Lozenge) 1 lozenge MUCOUS MEM Q2H PRN PRN Reason: Sore Throat Last Admin: 11/25/24 21:32 Dose: 1 lozenge Bupropion HCl (Bupropion Hcl Xl 300 Mg Tab.Er.24h) 300 mg PO DAILY [facility] On Hold: 11/21/24 09:50 Last Admin: 11/21/24 09:03 Dose: 300 mg Capsaicin (Capsaicin 0.025% Cream 60 Gm Tube) 1 appl TOPICAL TID PRN; Protocol PRN Reason: leg pain Last Admin: 11/25/24 21:32 Dose: 1 appl Cephalexin HCl (Cephalexin 500 Mg Capsule) 500 mg PO QID [facility] Stop: 12/02/24 12:59 Last Admin: 11/28/24 16:15 Dose: 500 mg Chlorpromazine HCl (Chlorpromazine Hcl 100 Mg Tablet) 100 mg PO TID [facility] Clonidine HCl (Clonidine Hcl 0.1 Mg Tablet) 0.1 mg PO Q4H PRN; Protocol PRN Reason: moderate anxiety Last Admin: 11/27/24 06:07 Dose: 0.1 mg Clozapine (Clozapine 100 Mg Tablet) 400 mg PO BEDTIME [facility] Last Admin: 11/27/24 21:40 Dose: 400 mg Diazepam (Diazepam 5 Mg Tablet) 10 mg PO TID [facility] Last Admin: 11/28/24 14:32 Dose: 10 mg Diphenhydramine HCl (Diphenhydramine Hcl 25 Mg Capsule) 25 mg PO TID [facility] Divalproex Sodium (Divalproex Sodium Er 500 Mg Tab.Er.24h) 3,000 mg PO BEDTIME [facility] Last Admin: 11/27/24 21:38 Dose: 3,000 mg Docusate Sodium (Docusate Sodium 100 Mg Capsule) 100 mg PO BID [facility] Last Admin: 11/28/24 08:28 Dose: 100 mg Fenofibrate (Fenofibrate 160 Mg Tablet) 160 mg PO DAILY [facility] Last Admin: 11/28/24 08:26 Dose: 160 mg Fluticasone Propionate (Fluticasone Propionate Nasal 16 Gm [place]) 1 spray NOSTRIL-B BEDTIME [facility] Last Admin: 11/27/24 23:42 Dose: Not Given Fluticasone Propionate (Fluticasone Propionate Nasal 16 Gm [place]) 1 spray NOSTRIL-B DAILY PRN PRN Reason: Nasal allergy Last Admin: 11/24/24 06:25 Dose: 1 spray Glycopyrrolate (Glycopyrrolate 1 Mg Tablet) 1 mg PO TID [facility] Last Admin: 11/28/24 14:33 Dose: 1 mg Ibuprofen (Ibuprofen 400 Mg Tablet) 400 mg PO Q6H PRN PRN Reason: Pain, Moderate(Pain Scale 4-6) Last Admin: 11/25/24 16:47 Dose: 400 mg Lorazepam (Lorazepam 1 Mg Tablet) 1 mg PO Q8H PRN PRN Reason: Anxiety Last Admin: 11/28/24 08:26 Dose: 1 mg Magnesium Hydroxide (Milk Of Magnesia 30 Ml Oral.Susp) 30 ml PO DAILY PRN PRN Reason: Constipation Last Admin: 11/28/24 14:32 Dose: 30 ml Nicotine (Nicotine 21 Mg Patch.Td24) 21 mg TRANSDERMA DAILY PRN PRN Reason: smoking cessation Last Admin: 11/25/24 08:46 Dose: 21 mg Nicotine Polacrilex (Nicotine Polacrilex 2 Mg Gum) 4 mg BUCCAL Q2H PRN PRN Reason: Nicotine Cravings Last Admin: 11/24/24 16:21 Dose: 4 mg Ondansetron HCl (Ondansetron Odt 4 Mg Tab.Rapdis) 4 mg TRANSLINGU Q6H PRN PRN Reason: Nausea and Vomiting Last Admin: 11/28/24 16:14 Dose: 4 mg Oxcarbazepine (Oxcarbazepine 300 Mg Tablet) 300 mg PO TID [facility] Last Admin: 11/28/24 14:33 Dose: 300 mg Polyethylene Glycol (Polyethylene Glycol 3350 17 Gm Powd.Pack) 17 gm PO DAILY [facility] Polyethylene Glycol (Polyethylene Glycol 3350 17 Gm Powd.Pack) 17 gm PO DAILY PRN PRN Reason: Constipation Last Admin: 11/28/24 16:16 Dose: 17 gm Risperidone (Risperidone 2 Mg Tablet) 4 mg PO BEDTIME [facility] Last Admin: 11/27/24 21:37 Dose: 4 mg Risperidone (Risperidone 1 Mg Tablet) 1 mg PO DAILY [facility] Last Admin: 11/28/24 08:26 Dose: 1 mg Tamoxifen Citrate (Tamoxifen Citrate 10 Mg Tablet) 80 mg PO DAILY [facility] On Hold: 11/27/24 10:43 Last Admin: 11/27/24 21:43 Dose: Not Given Trazodone HCl (Trazodone Hcl 50 Mg Tablet) 50 mg PO BEDTIME MRX1 PRN PRN Reason: Insomnia Last Admin: 11/27/24 21:40 Dose: 50 mg Allergies Allergies Allergy/AdvReac Type Severity Reaction Status Date / Time benztropine (From [facility]) Allergy Unknown UNKNOWN Verified 11/16/24 15:51 propranolol (From [place]AL [place]) Allergy Unknown UNKNOWN Verified 11/16/24 15:51 chaste tree Allergy Unknown Verified 11/16/24 15:51 lithium Allergy Unknown Verified 11/16/24 15:51 Assessment & Plan Assessment & Plan (1) Schizoaffective disorder, bipolar type: Status: Acute Code(s): F25.0 - Schizoaffective disorder, bipolar type (2) Autism spectrum disorder: Status: Acute Code(s): F84.0 - Autistic disorder (3) Cellulitis: Status: Acute Code(s): L03.90 - Cellulitis, unspecified (4) Class 3 obesity: Status: Acute Code(s): E66.813 - Obesity, class 3 Plan Patient is a 34-year-old male with history of schizoaffective disorder bipolar type, Autism Spectrum Disorder, who lives in a shelter, [place] [facility] [place] for depression. Patient reports that every 7 weeks (and every 4 months) medications don't work...and I feel depressed.... He says the the depression last anywhere from 2 to 12 days.. And then resolves on it's own without medication changes. Patient reports that he had suicidal ideation a few days ago, no plan but does not now. Patient says sometimes he hears sounds or voices that others do not hear, sometimes laughing noise but not very often and usually just during sleep. Discussed medication regimen and patient said that recently his Depakote was increased because he was having mood swings but it was difficult for him to give details. Discussed medication options and patient agrees to increase Wellbutrin to 450 mg. Formulation/clinical reasoning: Patient reports that episodically he still gets bouts of depression that can last for longer than a week however this seemed to resolve on their own. He is not sure what triggers them. Patient says he is already feeling better now that he is on the unit because of the friendships and interactions he has made since coming to the unit; patient signed a 3 day notice. Discussed medication options and patient agrees to increase Wellbutrin to 450 mg. Back Seam Stitcher wonders if perhaps patient can remain at Wellbutrin 300 mg and just take the extra 150 mg if he starts to feel depressed, sort of as an episodic p.r.n. -patient currently on 2 antipsychotics, including Clozaril and Risperdal; -some TD and pill rolling b/l hand tremor observed; wonder if Risperdal dose could be lowered; consider Aristeo Of note patient had severely high Triacylglycerides of 898. It appears to have been taken while patient fasting however patient is not sure. TAG this high puts patient at risk for pancreatitis. Will redraw labs tomorrow morning to ensure fasting however for now will treat as if this is an accurate lab Hospital course: 11/18: Continue current management and treatment plan. 11/19: Increase Depakote to 500 mg in AM and continue 1,000 mg HS. 11/20: continue current management and treatment plan. 11/21 Patient has become manic over the past several days. Additional Depakote dose was added but patient remains manic, grandiose, labile and intrusive. 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 Patient at 1 point broke down crying about the of his parents, saying that his mother was murdered but then saying she had a brain bleed.. Patient saying that he is from [place] and is going to go back and live his life and [place]... Initially demanding to be discharged today but was able to be redirected. Patient agrees to increased medications including adding Zyprexa -will hold Wellbutrin; seems likely that increasing Wellbutrin was what triggered manic episode -Increasing bedtime Depakote to 1250 mg -patient hardly slept last night and added Zyprexa 10 mg b.i.d.; plan is to discontinue once jacob subsides -reviewed labs and repeat cholesterol shows highly elevated TAG>500 though not as high as the day before 11/22 Patient did sleep some last night with added Zyprexa. Still manic but a little less intense and though still with some grandiose ideations, much less so. Patient still intrusive to others but redirectable. Patient did agree that he was acting manic yesterday but says he is fine now and wants to discharge. He persisted in demanding for discharge today and expressed frustration when told this is not possible but remained in behavioral control. -Great right toe with cellulitis; started on Keflex -Depakote labs ordered for Wednesday *patient is not stable to return to shelter at this time. Will try to get him to retract his 3 day notice but will otherwise file for civil commitment; that said hopefully will not need to go to court and manic episode will resolve 11/23/24: Patient slept for 2 hours, was medication compliant. Denies side effect but observed have some hand tremors. Restless, racing thoughts, intrusive, poor boundaries, need multiple redirections most of the time to respect personal space. He is over friendly, bright, manic but appeared to be less manic compared to yesterday. Can be perseverative on discharge, redirectable and need to remind that he is not leaving today a couple of times. He retracted 3 day notice. He seems to be forgetful. To PRNs with mild to moderate effects. He works on puzzle, and cleaning up his room. He has an reasonable planning for the future, appeared to be grandiose no aggressive behavior, can be irritable at times when things not the way he requested. Continue to monitor for sleeping pattern. 11/24/24: Slept slightly improved compared to the night before, he was able to slept for 4 hours. Was medication compliant. Mood is I am happy. I am calm and relaxed . Reports foot pain, nursing have patient to put lotion on, encouraged to elevated legs when he resting as left food appear to be slightly swollen. He said he would like to go back to his shelter. He also asked if he can call Carla and Max to apologize to them. Read direct patient not calling so many times that may annoying other persons. He admitted that he need to give them a break . Observe want time he was on the phone, appropriate. He is slightly better compared to yesterday, able to sit still, listen to advice/redirection. Even though he has delusional, and grandiose thoughts. Thinking he see a snake in his toilet, seeing his brother coming to see him. Per nursing he had unwitnessed fall when trying to put himself sitting down on the chair but missed it. Slightly better in term of manic behaviors, redirectable and less demanding. Redirected for personal space. Accepted it without any problems. 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 With much effort, Pt remains able to be redirected; examined great rt toe which remains with clear signs of cellulites -Start Ziprasidone -obtained EKG and qtc WNL -Depakote level with much room so will switch depakote to ER so can make at bedtime to help w/ sleep and will increase dose (Depakote IR 1750mg ~ Dep ER 2000) 11/26 Patient remains manic, intrusive, grandiose, tangential. Patient is intrusive to the point where some peers are getting very angry and some feeling provoked. -So far unable to break this manic episode; so far Zyprexa and Geodon have not affected patient and patient is in danger of unintentionally inciting peer aggression. -Thorazine 100 mg did not help either; will try Thorazine 200 mg t.i.d. combined with diazepam 15 mg t.i.d. (10mg did nothing) -if Thorazine does not help, will consider Haldol; also will soon get Depakote level and maybe able to increase other 11/27 Patient remains manic, grandiose, very intrusive with peers and staff, going into patient's rooms, walking up in into rejection himself, getting very close to people making people both angry and scared. Difficult decisions regarding treatment. Discussed case with Dr. Vázquez who agrees with plan For now, will discontinue Thorazine and Valium as group underwriter is somewhat concern that all this sedating medication could add on a delirium to his already manic behaviors. Instead, will try Trileptal to help break manic episode; Trileptal has the least side effect risk profile of options so will give it a try (though not very robust evidence) -Considering Tegretol however this will lower the effective dose of both clozapine and Risperdal by 50% or more creating a confusing treatment regimen; also can affect the liver and bone marrow and patient is already on Depakote and Clozaril -also considering Haldol however patient is already on 2 antipsychotics -also considering Tamoxifen used off-label however increases thrombo embolism risk and can raise the effective doses of clozapine and Risperdal ECT remains the gold standard to treat refractory jacob however patient has a guardian and Vela which would need to be amended 11/28 Patient angry, punching the wall, yelling aggressively, peers is getting scared; 1 peer felt threatened and confronted patient pushed him but both were able to be redirected. Made a threatening remark to staff i'm going to break you... Remains floridly manic, hyperverbal, intrusive... He did say yes to ECT however understands guardian needs to weigh in clinical reasoning: -patient's increasing aggression and agitation seems directly correlated with having had Thorazine and diazepam discontinued. Restarted it for the purpose of patient and milieu safety. However it later came to group underwriter's attention that Thorazine is not 1 of the antipsychotics listed on his community Vela..? Options that are available are Abilify and Haldol. Back Seam Stitcher lowered Thorazine to 100 mg and allowed for 1 last for tonight, again for milieu and patient safety however will discontinue it and will have to see if the other options are helpful Discussed case with colleague Dr. Meza who continues to agree that using Tegretol would cause too much mixing up of med regimen and that best option is to help patient remain safe while Depakote gets a chance to become therapeutic. Depakote level today 108; will continue with Depakote ER 3000mg and get level tomorrow -talked with Patients guardian Breezy Granados who says he has no objection to patient getting ECT Regarding depakote level: The?therapeutic range for acute jacob is 50?125 mcg/mL, and most patients respond within this range?1 https://dailymed.nlm.nih.gov/dailymed/drugInfo.cfm?omfeb=[email or web address]-[email or web address] -692r750ajetp ?2 https://pubmed.ncbi.nlm.nih.gov/71187833 .? of note, regarding EKG with prolonged Qtc: The incidence of torsades de pointes (TdP) from antipsychotic-induced QTc prolongation is?very low, estimated at?0.01?0.1%?(1?10 per 10,000 exposures) in clinical practice?1 https://pubmed.ncbi.nlm.nih.gov/77921499 ?2 https://pubmed.ncbi.nlm.nih.gov/08559471 . ?[And in the cases where someone did actually get TdP], the case fatality of TdP is also low, with?<10%?of TdP episodes resulting in cardiac , Plan: cv Q 15 minute checks On [facility] ORDER/guardianship Patient is not appropriate for groups or to be in kitchen 1. Jacob Adding Trileptal 300 mg t.i.d. Continue Depakote ER 3000 mg qhs -will get lab DC Thorazine 200mg TID DC Diazpam 10mg TID; will taper and dc once jacob subsides DC Ziprasidone no effect Dc zyprexa; does not seem to do much Continue Risperdal 1 mg a.m. and 4 mg q.h.s. Continue Clozaril 400 mg q.h.s.; Level: 403 and Norclozaril 137. HOLD Wellbutrin XL (once jacob resolved likely re-titrate to Wellbutrin 300mg (likely increasing to 450mg triggered manic episode) STARTed Fenobibrate 160mg daily for severely elevated Triacylglycerides of 898 (pt has normal renal function) Continue other home medications -consider Ingrezza -adverse reaction to [place] (per patient) -consider Tegretol? 2. Great right toe cellulitis Increased to Keflex 500 mg qid for 7 days (discussed increased dose with hospitalist MARIA T) -examined 11/28 and cellulitis is resolving 3. TAG 898 (appears to be fasting)/Cholesterol 319 re-ordered Lipid panel: Trilgyciride 898 down to 581 on 11/18/24. Cholesterol 319 down to 317. AIC 5.5 WNL. Started Fenobibrate 160mg daily (pt has normal renal function) Change diet to Low Fat diet will consider Statin Ordered TSH (lft's WNL): 0.81 WNL Patient educated on: diagnosis, medication risk/benefits, ECT and therapeutic strategies Informed Consent: understands, does not understand and further education needed Reason for continued inpatient stay Substantial Risk for: harm to self, harm to others and inability to function Time Spent With Patient Time: Total time managing care of this patient today ____ minutes.
[2024-11-28 20:00] VITALS: BP 159/89; PULSE 121; RESP 22; TEMP 37.1; O2SAT 97
[2024-11-28] MEDS: Throat Lozenge, Medicated LOZENGE 1 LOZENGE MUCOUS MEM (21:36)
[2024-11-29 08:10] VITALS: BP 139/80; PULSE 123; TEMP 36.4; O2SAT 96
[2024-11-29 09:05] LABS: Cholesterol 189 mg/dL (<200); HDL Cholesterol 35 mg/dL (>40); Triglycerides 150 mg/dL (<150)
--- NOTE | 2024-11-29 09:29 | HO.PSYCHPN ---
Subjective Subjective Date of Service: 11/29/24 Reason For Visit: Depressive D/O Schizoaffective Interim History: Met with patient; discussed with team Patient for the 1st time since manic episodes started, more subdued today and slept from much of the day. During periods when he was awake, remains manic, intrusive, grandiose and saying bizarre things such as I am hairy potters twin and I need to get back to [facility]. Mental Status Exam Mental Status Exam Narrative: Pt is alert and oriented; behavior is still manic, hyperverbal, intrusive with peers and staff however, prolonged periods where patient was able to rest today which is new; patient is not in distress; dressed in casual attire, unkempt; bilateral hand tremor; marginal hygiene; mood is described as good and affect somewhat expansive with periods of lability; eye contact appropriate; Speech still pressured, rambling; moderate psychomotor agitation present; thought process can be goal oriented, but also tangential; Thought content with grandiose delusions; denies any SI/HI. Denies AVH Patients insight and judgment impaired Diagnostics Vital Signs (24Hr): Vital Signs - 24 hr 11/28/24 20:00 11/29/24 08:10 Temperature 98.7 F 97.5 F Pulse Rate 121 H 123 H Respiratory Rate 22 H Blood Pressure 159/89 H 139/80 Pulse Oximetry 97 96 Oxygen Delivery Method Room Air Room Air BMI result Body Mass Index 36.6 Labs 11/28/24 10:37 Labs: Laboratory Results - last 48 hr 11/28/24 11/29/24 10:37 08:25 Sodium 142 Potassium 3.7 Chloride 106 Carbon Dioxide 27 Anion Gap 13 BUN 18 H Creatinine 0.98 Estim Creat Clear Calc 136.8 Estimated GFR > 60 Random Glucose 116 H Calcium 9.2 Total Bilirubin 0.3 AST 53 H ALT 28 Alkaline Phosphatase 65 Ammonia 34 Total Protein 7.4 Albumin 4.2 Triglycerides 150 H Cholesterol 189 LDL Cholesterol, Calc 124 H HDL Cholesterol 35 L Valproic Acid 108.9 H 122.8 H* Medications Medications Current Medications Acetaminophen (Acetaminophen 325 Mg Tablet) 650 mg PO Q6H PRN PRN Reason: Headache/Pain, Scale 1-10 Last Admin: 11/28/24 16:17 Dose: 650 mg Al Hydroxide/Mg Hydroxide (Magnesium Hydrox/Alum Hydrox 30 Ml Oral.Susp) 30 ml PO Q6H PRN PRN Reason: Heartburn/Nausea Last Admin: 11/21/24 01:55 Dose: 30 ml Benzocaine (Throat Lozenge, Medicated Lozenge) 1 lozenge MUCOUS MEM Q2H PRN PRN Reason: Sore Throat Last Admin: 11/28/24 21:36 Dose: 1 lozenge Bupropion HCl (Bupropion Hcl Xl 300 Mg Tab.Er.24h) 300 mg PO DAILY [facility] On Hold: 11/21/24 09:50 Last Admin: 11/21/24 09:03 Dose: 300 mg Capsaicin (Capsaicin 0.025% Cream 60 Gm Tube) 1 appl TOPICAL TID PRN; Protocol PRN Reason: leg pain Last Admin: 11/25/24 21:32 Dose: 1 appl Cephalexin HCl (Cephalexin 500 Mg Capsule) 500 mg PO QID [facility] Stop: 12/02/24 12:59 Last Admin: 11/29/24 08:43 Dose: 500 mg Clonidine HCl (Clonidine Hcl 0.1 Mg Tablet) 0.1 mg PO Q4H PRN; Protocol PRN Reason: moderate anxiety Last Admin: 11/27/24 06:07 Dose: 0.1 mg Clozapine (Clozapine 100 Mg Tablet) 400 mg PO BEDTIME ST[facility]ART Last Admin: 11/28/24 21:34 Dose: 400 mg Diazepam (Diazepam 5 Mg Tablet) 10 mg PO TID [facility] Last Admin: 11/29/24 08:42 Dose: 10 mg Diphenhydramine HCl (Diphenhydramine Hcl 25 Mg Capsule) 25 mg PO TID [facility] Last Admin: 11/29/24 08:43 Dose: 25 mg Divalproex Sodium (Divalproex Sodium Er 500 Mg Tab.Er.24h) 3,000 mg PO BEDTIME [facility] Last Admin: 11/28/24 21:35 Dose: 3,000 mg Docusate Sodium (Docusate Sodium 100 Mg Capsule) 100 mg PO BID [facility] Last Admin: 11/29/24 08:43 Dose: 100 mg Fenofibrate (Fenofibrate 160 Mg Tablet) 160 mg PO DAILY [facility] Last Admin: 11/29/24 08:42 Dose: 160 mg Fluticasone Propionate (Fluticasone Propionate Nasal 16 Gm Boron) 1 spray NOSTRIL-B BEDTIME [facility] Last Admin: 11/28/24 21:43 Dose: Not Given Fluticasone Propionate (Fluticasone Propionate Nasal 16 Gm Boron) 1 spray NOSTRIL-B DAILY PRN PRN Reason: Nasal allergy Last Admin: 11/24/24 06:25 Dose: 1 spray Glycopyrrolate (Glycopyrrolate 1 Mg Tablet) 1 mg PO TID [facility] Last Admin: 11/29/24 08:43 Dose: 1 mg Ibuprofen (Ibuprofen 400 Mg Tablet) 400 mg PO Q6H PRN PRN Reason: Pain, Moderate(Pain Scale 4-6) Last Admin: 11/25/24 16:47 Dose: 400 mg Lorazepam (Lorazepam 1 Mg Tablet) 1 mg PO Q8H PRN PRN Reason: Anxiety Last Admin: 11/29/24 08:42 Dose: 1 mg Magnesium Hydroxide (Milk Of Magnesia 30 Ml Oral.Susp) 30 ml PO DAILY PRN PRN Reason: Constipation Last Admin: 11/28/24 14:32 Dose: 30 ml Nicotine (Nicotine 21 Mg Patch.Td24) 21 mg TRANSDERMA DAILY PRN PRN Reason: smoking cessation Last Admin: 11/25/24 08:46 Dose: 21 mg Nicotine Polacrilex (Nicotine Polacrilex 2 Mg Gum) 4 mg BUCCAL Q2H PRN PRN Reason: Nicotine Cravings Last Admin: 11/24/24 16:21 Dose: 4 mg Ondansetron HCl (Ondansetron Odt 4 Mg Tab.Rapdis) 4 mg TRANSLINGU Q6H PRN PRN Reason: Nausea and Vomiting Last Admin: 11/28/24 16:14 Dose: 4 mg Oxcarbazepine (Oxcarbazepine 300 Mg Tablet) 300 mg PO TID [facility] Last Admin: 11/29/24 08:43 Dose: 300 mg Polyethylene Glycol (Polyethylene Glycol 3350 17 Gm Powd.Pack) 17 gm PO DAILY [facility] Last Admin: 11/29/24 08:42 Dose: 17 gm Polyethylene Glycol (Polyethylene Glycol 3350 17 Gm Powd.Pack) 17 gm PO DAILY PRN PRN Reason: Constipation Last Admin: 11/28/24 16:16 Dose: 17 gm Risperidone (Risperidone 2 Mg Tablet) 4 mg PO BEDTIME [facility] Last Admin: 11/28/24 21:35 Dose: 4 mg Risperidone (Risperidone 1 Mg Tablet) 1 mg PO DAILY [facility] Last Admin: 09/10/25 08:43 Dose: 1 mg Tamoxifen Citrate (Tamoxifen Citrate 10 Mg Tablet) 80 mg PO DAILY [facility] On Hold: 11/27/24 10:43 Last Admin: 11/27/24 21:43 Dose: Not Given Trazodone HCl (Trazodone Hcl 50 Mg Tablet) 50 mg PO BEDTIME MRX1 PRN PRN Reason: Insomnia Last Admin: 11/28/24 21:36 Dose: 50 mg Allergies Allergies Allergy/AdvReac Type Severity Reaction Status Date / Time benztropine (From COGENTIN) Allergy Unknown UNKNOWN Verified 11/16/24 15:51 propranolol (From INDERAL LA) Allergy Unknown UNKNOWN Verified 11/16/24 15:51 chaste tree Allergy Unknown Verified 11/16/24 15:51 lithium Allergy Unknown Verified 11/16/24 15:51 Assessment & Plan Assessment & Plan (1) Schizoaffective disorder, bipolar type: Status: Acute Code(s): F25.0 - Schizoaffective disorder, bipolar type (2) Autism spectrum disorder: Status: Acute Code(s): F84.0 - Autistic disorder (3) Cellulitis: Status: Acute Code(s): L03.90 - Cellulitis, unspecified (4) Class 3 obesity: Status: Acute Code(s): E66.813 - Obesity, class 3 Plan Patient is a 34-year-old male with history of schizoaffective disorder bipolar type, Autism Spectrum Disorder, who lives in a assisted, on a [facility] who presents for depression. Patient reports that every 7 weeks (and every 4 months) medications don't work...and I feel depressed.... He says the the depression last anywhere from 2 to 12 days.. And then resolves on it's own without medication changes. Patient reports that he had suicidal ideation a few days ago, no plan but does not now. Patient says sometimes he hears sounds or voices that others do not hear, sometimes laughing noise but not very often and usually just during sleep. Discussed medication regimen and patient said that recently his Depakote was increased because he was having mood swings but it was difficult for him to give details. Discussed medication options and patient agrees to increase Wellbutrin to 450 mg. Formulation/clinical reasoning: Patient reports that episodically he still gets bouts of depression that can last for longer than a week however this seemed to resolve on their own. He is not sure what triggers them. Patient says he is already feeling better now that he is on the unit because of the friendships and interactions he has made since coming to the unit; patient signed a 3 day notice. Discussed medication options and patient agrees to increase Wellbutrin to 450 mg. Stockroom Worker wonders if perhaps patient can remain at Wellbutrin 300 mg and just take the extra 150 mg if he starts to feel depressed, sort of as an episodic p.r.n. -patient currently on 2 antipsychotics, including Clozaril and Risperdal; -some TD and pill rolling b/l hand tremor observed; wonder if Risperdal dose could be lowered; consider Aristeo Of note patient had severely high Triacylglycerides of 898. It appears to have been taken while patient fasting however patient is not sure. TAG this high puts patient at risk for pancreatitis. Will redraw labs tomorrow morning to ensure fasting however for now will treat as if this is an accurate lab Hospital course: 11/18: Continue current management and treatment plan. 11/19: Increase Depakote to 500 mg in AM and continue 1,000 mg HS. 11/20: continue current management and treatment plan. 11/21 Patient has become manic over the past several days. Additional Depakote dose was added but patient remains manic, grandiose, labile and intrusive. 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 Patient at 1 point broke down crying about the of his parents, saying that his mother was murdered but then saying she had a brain bleed.. Patient saying that he is from [place] and is going to go back and live his life and [place]... Initially demanding to be discharged today but was able to be redirected. Patient agrees to increased medications including adding Zyprexa -will hold Wellbutrin; seems likely that increasing Wellbutrin was what triggered manic episode -Increasing bedtime Depakote to 1250 mg -patient hardly slept last night and added Zyprexa 10 mg b.i.d.; plan is to discontinue once jacob subsides -reviewed labs and repeat cholesterol shows highly elevated TAG>500 though not as high as the day before 11/22 Patient did sleep some last night with added Zyprexa. Still manic but a little less intense and though still with some grandiose ideations, much less so. Patient still intrusive to others but redirectable. Patient did agree that he was acting manic yesterday but says he is fine now and wants to discharge. He persisted in demanding for discharge today and expressed frustration when told this is not possible but remained in behavioral control. -Great right toe with cellulitis; started on Keflex -Depakote labs ordered for Wednesday *patient is not stable to return to assisted at this time. Will try to get him to retract his 3 day notice but will otherwise file for civil commitment; that said hopefully will not need to go to court and manic episode will resolve 11/23/24: Patient slept for 2 hours, was medication compliant. Denies side effect but observed have some hand tremors. Restless, racing thoughts, intrusive, poor boundaries, need multiple redirections most of the time to respect personal space. He is over friendly, bright, manic but appeared to be less manic compared to yesterday. Can be perseverative on discharge, redirectable and need to remind that he is not leaving today a couple of times. He retracted 3 day notice. He seems to be forgetful. To PRNs with mild to moderate effects. He works on puzzle, and cleaning up his room. He has an reasonable planning for the future, appeared to be grandiose no aggressive behavior, can be irritable at times when things not the way he requested. Continue to monitor for sleeping pattern. 11/24/24: Slept slightly improved compared to the night before, he was able to slept for 4 hours. Was medication compliant. Mood is I am happy. I am calm and relaxed . Reports foot pain, nursing have patient to put lotion on, encouraged to elevated legs when he resting as left food appear to be slightly swollen. He said he would like to go back to his assisted. He also asked if he can call Carla and Max to apologize to them. Read direct patient not calling so many times that may annoying other persons. He admitted that he need to give them a break . Observe want time he was on the phone, appropriate. He is slightly better compared to yesterday, able to sit still, listen to advice/redirection. Even though he has delusional, and grandiose thoughts. Thinking he see a snake in his toilet, seeing his brother coming to see him. Per nursing he had unwitnessed fall when trying to put himself sitting down on the chair but missed it. Slightly better in term of manic behaviors, redirectable and less demanding. Redirected for personal space. Accepted it without any problems. 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 With much effort, Pt remains able to be redirected; examined great rt toe which remains with clear signs of cellulites -Start Ziprasidone -obtained EKG and qtc WNL -Depakote level with much room so will switch depakote to ER so can make at bedtime to help w/ sleep and will increase dose (Depakote IR 1750mg ~ Dep ER 2000) 11/26 Patient remains manic, intrusive, grandiose, tangential. Patient is intrusive to the point where some peers are getting very angry and some feeling provoked. -So far unable to break this manic episode; so far Zyprexa and Geodon have not affected patient and patient is in danger of unintentionally inciting peer aggression. -Thorazine 100 mg did not help either; will try Thorazine 200 mg t.i.d. combined with diazepam 15 mg t.i.d. (10mg did nothing) -if Thorazine does not help, will consider Haldol; also will soon get Depakote level and maybe able to increase other 11/27 Patient remains manic, grandiose, very intrusive with peers and staff, going into patient's rooms, walking up in into rejection himself, getting very close to people making people both angry and scared. Difficult decisions regarding treatment. Discussed case with Dr. Vázquez who agrees with plan For now, will discontinue Thorazine and Valium as keno writer / runner is somewhat concern that all this sedating medication could add on a delirium to his already manic behaviors. Instead, will try Trileptal to help break manic episode; Trileptal has the least side effect risk profile of options so will give it a try (though not very robust evidence) -Considering Tegretol however this will lower the effective dose of both clozapine and Risperdal by 50% or more creating a confusing treatment regimen; also can affect the liver and bone marrow and patient is already on Depakote and Clozaril -also considering Haldol however patient is already on 2 antipsychotics -also considering Tamoxifen used off-label however increases thrombo embolism risk and can raise the effective doses of clozapine and Risperdal ECT remains the gold standard to treat refractory jacob however patient has a guardian and Vela which would need to be amended 11/28 Patient angry, punching the wall, yelling aggressively, peers is getting scared; 1 peer felt threatened and confronted patient pushed him but both were able to be redirected. Made a threatening remark to staff i'm going to break you... Remains floridly manic, hyperverbal, intrusive... He did say yes to ECT however understands guardian needs to weigh in clinical reasoning: -patient's increasing aggression and agitation seems directly correlated with having had Thorazine and diazepam discontinued. Restarted it for the purpose of patient and milieu safety. However it later came to keno writer / runner's attention that Thorazine is not 1 of the antipsychotics listed on his community Vela..? Options that are available are Abilify and Haldol. Stockroom Worker lowered Thorazine to 100 mg and allowed for 1 last for tonight, again for milieu and patient safety however will discontinue it and will have to see if the other options are helpful Discussed case with colleague Dr. Meza who continues to agree that using Tegretol would cause too much mixing up of med regimen and that best option is to help patient remain safe while Depakote gets a chance to become therapeutic. Depakote level today 108; will continue with Depakote ER 3000mg and get level tomorrow -talked with Patients guardian Breezy Granados who says he has no objection to patient getting ECT 11/29 Patient for the 1st time since manic episodes started, more subdued today and slept from much of the day. During periods when he was awake, remains manic, intrusive, grandiose and saying bizarre things such as I am hairy potters twin and I need to get back to [facility]. -hopefully this is the sign that patient's manic episode is starting to wane; will continue with Depakote ER 3000 mg and get another level tomorrow (The?therapeutic range for acute jacob is 50?125 mcg/mL) Regarding depakote level: The?therapeutic range for acute jacob is 50?125 mcg/mL, and most patients respond within this range?1https://dailymed.nlm.nih.gov/dailymed/drugInfo.cfm?mbxxh=[email or web address]?2https://pubmed.ncbi.nlm.nih.gov/66661809.? of note, regarding EKG with prolonged Qtc: The incidence of torsades de pointes (TdP) from antipsychotic-induced QTc prolongation is?very low, estimated at?0.01?0.1%?(1?10 per 10,000 exposures) in clinical practice?1https://pubmed.ncbi.nlm.nih.gov/13189502?2https://pubmed.ncbi.nlm.nih.gov/83403661. ?[And in the cases where someone did actually get TdP], the case fatality of TdP is also low, with?<10%?of TdP episodes resulting in cardiac , Plan: cv Q 15 minute checks On [facility] ORDER/guardianship Patient is not appropriate for groups or to be in kitchen 1. Jacob Continue Depakote ER 3000 mg qhs -will get lab Continue Risperdal 1 mg a.m. and 4 mg q.h.s. Continue Clozaril 400 mg q.h.s.; Level: 403 and Norclozaril 137. DC Thorazine 200mg TID DC Diazpam 10mg TID; will taper and dc once jacob subsides dc Trileptal DC Ziprasidone no effect Dc zyprexa; does not seem to do much HOLD Wellbutrin XL (once jacob resolved likely re-titrate to Wellbutrin 300mg (likely increasing to 450mg triggered manic episode) STARTed Fenobibrate 160mg daily for severely elevated Triacylglycerides of 898 (pt has normal renal function) Continue other home medications -consider Ingrezza -adverse reaction to [place] (per patient) -consider Tegretol? 2. Great right toe cellulitis Increased to Keflex 500 mg qid for 7 days (discussed increased dose with hospitalist MARIA T) -examined 11/28 and cellulitis is resolving 3. TAG 898 (appears to be fasting)/Cholesterol 319 re-ordered Lipid panel: Trilgyciride 898 down to 581 on 11/18/24. Cholesterol 319 down to 317. AIC 5.5 WNL. Started Fenobibrate 160mg daily (pt has normal renal function) Change diet to Low Fat diet will consider Statin Ordered TSH (lft's WNL): 0.81 WNL Patient educated on: diagnosis and medication risk/benefits Informed Consent: understands, does not understand and further education needed Reason for continued inpatient stay Substantial Risk for: harm to self, harm to others and inability to function Time Spent With Patient Time: Total time managing care of this patient today ____ minutes.
--- NOTE | 2024-11-29 13:37 | MHC.SLORD ---
Speech Language Pathology Order Status: RN consulted, pt sleeping, medicated. Pt has been drooling s/p and during ECT, swallow evaluation pending, RN requested SHOE SINGER contact unit in the morning 11/30.
[2024-11-29 20:00] VITALS: BP 111/56; PULSE 122; RESP 16; TEMP 36.4; O2SAT 97
[2024-11-30 08:00] VITALS: BP 128/74; PULSE 115; TEMP 36.4; O2SAT 96
[2024-11-30 08:25] LABS: Neut%MD 51.8 %; WBCANC 7.0 X10*3/uL
[2024-11-30 08:30] LABS: Ammonia 60 umol/L (13-55)
[2024-11-30 08:42] LABS: Alanine Aminotransferase 27 U/L (0-40); Albumin Level 4.3 g/dL (3.5-5.0); Alkaline Phosphatase 67 U/L (39-117); Aspartate Amino Transferase 46 U/L (5-37); Total Protein 7.5 g/dL (6.5-8.0)
--- NOTE | 2024-11-30 09:48 | P.PNPSI_ITS ---
Subjective Subjective Date of Service: 11/30/24 Reason For Visit: Depressive D/O Schizoaffective Interim History: met with pt;discussed with team pt manic; while he slept yesterday and was more quiet, he is today again intrusive, rambling, making grandiose statements Mental Status Exam Mental Status Exam Narrative: Pt is alert and oriented; behavior is still manic, hyperverbal, intrusive with peers and staff; not resting during day; patient is not in distress; dressed in casual attire, unkempt; bilateral hand tremor; marginal hygiene; mood is described as good and affect somewhat expansive; eye contact appropriate; Speech still pressured, rambling; moderate psychomotor agitation present; thought process can be goal oriented, but also tangential; Thought content with grandiose delusions; denies any SI/HI. Denies AVH Patients insight and judgment impaired Diagnostics Vital Signs (24Hr): Vital Signs - 24 hr 11/29/24 20:00 Temperature 97.6 F Pulse Rate 122 H Respiratory Rate 16 Blood Pressure 111/56 L Pulse Oximetry 97 Oxygen Delivery Method Room Air BMI result Body Mass Index 36.6 Labs 11/28/24 10:37 Labs: Laboratory Results - last 48 hr 11/28/24 11/29/24 11/30/24 10:37 08:25 08:14 Absolute Neuts (auto) 3.6 Sodium 142 Potassium 3.7 Chloride 106 Carbon Dioxide 27 Anion Gap 13 BUN 18 H Creatinine 0.98 Estim Creat Clear Calc 136.8 Estimated GFR > 60 Random Glucose 116 H Calcium 9.2 Total Bilirubin 0.3 0.2 Direct Bilirubin < 0.2 AST 53 H 46 H ALT 28 27 Alkaline Phosphatase 65 67 Ammonia 34 60 H Total Protein 7.4 7.5 Albumin 4.2 4.3 Triglycerides 150 H Cholesterol 189 LDL Cholesterol, Calc 124 H HDL Cholesterol 35 L Valproic Acid 108.9 H 122.8 H* 117.9 H* Medications Medications Current Medications Acetaminophen (Acetaminophen 325 Mg Tablet) 650 mg PO Q6H PRN PRN Reason: Headache/Pain, Scale 1-10 Last Admin: 11/28/24 16:17 Dose: 650 mg Al Hydroxide/Mg Hydroxide (Magnesium Hydrox/Alum Hydrox 30 Ml Oral.Susp) 30 ml PO Q6H PRN PRN Reason: Heartburn/Nausea Last Admin: 11/21/24 01:55 Dose: 30 ml Benzocaine (Throat Lozenge, Medicated Lozenge) 1 lozenge MUCOUS MEM Q2H PRN PRN Reason: Sore Throat Last Admin: 11/28/24 21:36 Dose: 1 lozenge Bupropion HCl (Bupropion Hcl Xl 300 Mg Tab.Er.24h) 300 mg PO DAILY STEWART On Hold: 11/21/24 09:50 Last Admin: 11/21/24 09:03 Dose: 300 mg Capsaicin (Capsaicin 0.025% Cream 60 Gm Tube) 1 appl TOPICAL TID PRN; Protocol PRN Reason: leg pain Last Admin: 11/25/24 21:32 Dose: 1 appl Cephalexin HCl (Cephalexin 500 Mg Capsule) 500 mg PO QID COUNTS INCLUDE 234 BEDS AT THE [facility] Stop: 12/02/24 12:59 Last Admin: 11/30/24 08:35 Dose: 500 mg Clonidine HCl (Clonidine Hcl 0.1 Mg Tablet) 0.1 mg PO Q4H PRN; Protocol PRN Reason: moderate anxiety Last Admin: 11/27/24 06:07 Dose: 0.1 mg Clozapine (Clozapine 100 Mg Tablet) 400 mg PO BEDTIME COUNTS INCLUDE 234 BEDS AT THE [facility] Last Admin: 11/29/24 22:13 Dose: 400 mg Diazepam (Diazepam 5 Mg Tablet) 10 mg PO TID COUNTS INCLUDE 234 BEDS AT THE [facility] Last Admin: 11/30/24 08:34 Dose: 10 mg Diphenhydramine HCl (Diphenhydramine Hcl 25 Mg Capsule) 25 mg PO TID COUNTS INCLUDE 234 BEDS AT THE [facility] Last Admin: 11/30/24 08:34 Dose: 25 mg Divalproex Sodium (Divalproex Sodium Er 500 Mg Tab.Er.24h) 3,000 mg PO BEDTIME COUNTS INCLUDE 234 BEDS AT THE [facility] Last Admin: 11/29/24 22:13 Dose: 3,000 mg Docusate Sodium (Docusate Sodium 100 Mg Capsule) 100 mg PO BID COUNTS INCLUDE 234 BEDS AT THE [facility] Last Admin: 11/30/24 08:35 Dose: 100 mg Fenofibrate (Fenofibrate 160 Mg Tablet) 160 mg PO DAILY COUNTS INCLUDE 234 BEDS AT THE [facility] Last Admin: 11/30/24 08:35 Dose: 160 mg Fluticasone Propionate (Fluticasone Propionate Nasal 16 Gm [place]) 1 spray NOSTRIL-B BEDTIME COUNTS INCLUDE 234 BEDS AT THE [facility] Last Admin: 11/29/24 22:13 Dose: Not Given Fluticasone Propionate (Fluticasone Propionate Nasal 16 Gm [place]) 1 spray NOSTRIL-B DAILY PRN PRN Reason: Nasal allergy Last Admin: 11/24/24 06:25 Dose: 1 spray Glycopyrrolate (Glycopyrrolate 1 Mg Tablet) 1 mg PO TID COUNTS INCLUDE 234 BEDS AT THE [facility] Last Admin: 11/30/24 08:35 Dose: 1 mg Ibuprofen (Ibuprofen 400 Mg Tablet) 400 mg PO Q6H PRN PRN Reason: Pain, Moderate(Pain Scale 4-6) Last Admin: 11/25/24 16:47 Dose: 400 mg Lorazepam (Lorazepam 1 Mg Tablet) 1 mg PO Q8H PRN PRN Reason: Anxiety Last Admin: 11/29/24 08:42 Dose: 1 mg Magnesium Hydroxide (Milk Of Magnesia 30 Ml Oral.Susp) 30 ml PO DAILY PRN PRN Reason: Constipation Last Admin: 11/28/24 14:32 Dose: 30 ml Nicotine (Nicotine 21 Mg Patch.Td24) 21 mg TRANSDERMA DAILY PRN PRN Reason: smoking cessation Last Admin: 11/25/24 08:46 Dose: 21 mg Nicotine Polacrilex (Nicotine Polacrilex 2 Mg Gum) 4 mg BUCCAL Q2H PRN PRN Reason: Nicotine Cravings Last Admin: 11/24/24 16:21 Dose: 4 mg Ondansetron HCl (Ondansetron Odt 4 Mg Tab.Rapdis) 4 mg TRANSLINGU Q6H PRN PRN Reason: Nausea and Vomiting Last Admin: 11/28/24 16:14 Dose: 4 mg Oxcarbazepine (Oxcarbazepine 300 Mg Tablet) 300 mg PO TID COUNTS INCLUDE 234 BEDS AT THE [facility] Last Admin: 11/30/24 08:35 Dose: 300 mg Polyethylene Glycol (Polyethylene Glycol 3350 17 Gm Powd.Pack) 17 gm PO DAILY COUNTS INCLUDE 234 BEDS AT THE [facility] Last Admin: 11/30/24 08:34 Dose: 17 gm Polyethylene Glycol (Polyethylene Glycol 3350 17 Gm Powd.Pack) 17 gm PO DAILY PRN PRN Reason: Constipation Last Admin: 11/28/24 16:16 Dose: 17 gm Risperidone (Risperidone 2 Mg Tablet) 4 mg PO BEDTIME COUNTS INCLUDE 234 BEDS AT THE [facility] Last Admin: 11/29/24 22:14 Dose: 4 mg Risperidone (Risperidone 1 Mg Tablet) 1 mg PO DAILY COUNTS INCLUDE 234 BEDS AT THE [facility] Last Admin: 11/30/24 08:34 Dose: 1 mg Tamoxifen Citrate (Tamoxifen Citrate 10 Mg Tablet) 80 mg PO DAILY COUNTS INCLUDE 234 BEDS AT THE [facility] On Hold: 11/27/24 10:43 Last Admin: 11/27/24 21:43 Dose: Not Given Trazodone HCl (Trazodone Hcl 50 Mg Tablet) 50 mg PO BEDTIME MRX1 PRN PRN Reason: Insomnia Last Admin: 11/29/24 22:12 Dose: 50 mg Allergies Allergies Allergy/AdvReac Type Severity Reaction Status Date / Time benztropine (From [facility]) Allergy Unknown UNKNOWN Verified 11/16/24 15:51 propranolol (From [facility]DERAL [place]) Allergy Unknown UNKNOWN Verified 11/16/24 15:51 chaste tree Allergy Unknown Verified 11/16/24 15:51 lithium Allergy Unknown Verified 11/16/24 15:51 Assessment & Plan Assessment & Plan (1) Schizoaffective disorder, bipolar type: Status: Acute Code(s): F25.0 - Schizoaffective disorder, bipolar type (2) Autism spectrum disorder: Status: Acute Code(s): F84.0 - Autistic disorder (3) Cellulitis: Status: Acute Code(s): L03.90 - Cellulitis, unspecified (4) Class 3 obesity: Status: Acute Code(s): E66.813 - Obesity, class 3 Plan Patient is a 34-year-old male with history of schizoaffective disorder bipolar type, Autism Spectrum Disorder, who lives in a usp, on a [facility] who presents for depression. Patient reports that every 7 weeks (and every 4 months) medications don't work...and I feel depressed.... He says the the depression last anywhere from 2 to 12 days.. And then resolves on it's own without medication changes. Patient reports that he had suicidal ideation a few days ago, no plan but does not now. Patient says sometimes he hears sounds or voices that others do not hear, sometimes laughing noise but not very often and usually just during sleep. Discussed medication regimen and patient said that recently his Depakote was increased because he was having mood swings but it was difficult for him to give details. Discussed medication options and patient agrees to increase Wellbutrin to 450 mg. Formulation/clinical reasoning: Patient reports that episodically he still gets bouts of depression that can last for longer than a week however this seemed to resolve on their own. He is not sure what triggers them. Patient says he is already feeling better now that he is on the unit because of the friendships and interactions he has made since coming to the unit; patient signed a 3 day notice. Discussed medication options and patient agrees to increase Wellbutrin to 450 mg. Cutting Tool Sharpener wonders if perhaps patient can remain at Wellbutrin 300 mg and just take the extra 150 mg if he starts to feel depressed, sort of as an episodic p.r.n. -patient currently on 2 antipsychotics, including Clozaril and Risperdal; -some TD and pill rolling b/l hand tremor observed; wonder if Risperdal dose could be lowered; consider Titaezza Of note patient had severely high Triacylglycerides of 898. It appears to have been taken while patient fasting however patient is not sure. TAG this high puts patient at risk for pancreatitis. Will redraw labs tomorrow morning to ensure fasting however for now will treat as if this is an accurate lab Hospital course: 11/18: Continue current management and treatment plan. 11/19: Increase Depakote to 500 mg in AM and continue 1,000 mg HS. 11/20: continue current management and treatment plan. 11/21 Patient has become manic over the past several days. Additional Depakote dose was added but patient remains manic, grandiose, labile and intrusive. 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 Patient at 1 point broke down crying about the of his parents, saying that his mother was murdered but then saying she had a brain bleed.. Patient saying that he is from [place] and is going to go back and live his life and [place]... Initially demanding to be discharged today but was able to be redirected. Patient agrees to increased medications including adding Zyprexa -will hold Wellbutrin; seems likely that increasing Wellbutrin was what triggered manic episode -Increasing bedtime Depakote to 1250 mg -patient hardly slept last night and added Zyprexa 10 mg b.i.d.; plan is to discontinue once jacob subsides -reviewed labs and repeat cholesterol shows highly elevated TAG>500 though not as high as the day before 11/22 Patient did sleep some last night with added Zyprexa. Still manic but a little less intense and though still with some grandiose ideations, much less so. Patient still intrusive to others but redirectable. Patient did agree that he was acting manic yesterday but says he is fine now and wants to discharge. He persisted in demanding for discharge today and expressed frustration when told this is not possible but remained in behavioral control. -Great right toe with cellulitis; started on Keflex -Depakote labs ordered for Wednesday *patient is not stable to return to usp at this time. Will try to get him to retract his 3 day notice but will otherwise file for civil commitment; that said hopefully will not need to go to court and manic episode will resolve 11/23/24: Patient slept for 2 hours, was medication compliant. Denies side effect but observed have some hand tremors. Restless, racing thoughts, intrusive, poor boundaries, need multiple redirections most of the time to respect personal space. He is over friendly, bright, manic but appeared to be less manic compared to yesterday. Can be perseverative on discharge, redirectable and need to remind that he is not leaving today a couple of times. He retracted 3 day notice. He seems to be forgetful. To PRNs with mild to moderate effects. He works on puzzle, and cleaning up his room. He has an reasonable planning for the future, appeared to be grandiose no aggressive behavior, can be irritable at times when things not the way he requested. Continue to monitor for sleeping pattern. 11/24/24: Slept slightly improved compared to the night before, he was able to slept for 4 hours. Was medication compliant. Mood is I am happy. I am calm and relaxed . Reports foot pain, nursing have patient to put lotion on, encouraged to elevated legs when he resting as left food appear to be slightly swollen. He said he would like to go back to his usp. He also asked if he can call Carla and Max to apologize to them. Read direct patient not calling so many times that may annoying other persons. He admitted that he need to give them a break . Observe want time he was on the phone, appropriate. He is slightly better compared to yesterday, able to sit still, listen to advice/redirection. Even though he has delusional, and grandiose thoughts. Thinking he see a snake in his toilet, seeing his brother coming to see him. Per nursing he had unwitnessed fall when trying to put himself sitting down on the chair but missed it. Slightly better in term of manic behaviors, redirectable and less demanding. Redirected for personal space. Accepted it without any problems. 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 With much effort, Pt remains able to be redirected; examined great rt toe which remains with clear signs of cellulites -Start Ziprasidone -obtained EKG and qtc WNL -Depakote level with much room so will switch depakote to ER so can make at bedtime to help w/ sleep and will increase dose (Depakote IR 1750mg ~ Dep ER 2000) 11/26 Patient remains manic, intrusive, grandiose, tangential. Patient is intrusive to the point where some peers are getting very angry and some feeling provoked. -So far unable to break this manic episode; so far Zyprexa and Geodon have not affected patient and patient is in danger of unintentionally inciting peer aggression. -Thorazine 100 mg did not help either; will try Thorazine 200 mg t.i.d. combined with diazepam 15 mg t.i.d. (10mg did nothing) -if Thorazine does not help, will consider Haldol; also will soon get Depakote level and maybe able to increase other 11/27 Patient remains manic, grandiose, very intrusive with peers and staff, going into patient's rooms, walking up in into rejection himself, getting very close to people making people both angry and scared. Difficult decisions regarding treatment. Discussed case with Dr. Vázquez who agrees with plan For now, will discontinue Thorazine and Valium as technical writer is somewhat concern that all this sedating medication could add on a delirium to his already manic behaviors. Instead, will try Trileptal to help break manic episode; Trileptal has the least side effect risk profile of options so will give it a try (though not very robust evidence) -Considering Tegretol however this will lower the effective dose of both clozapine and Risperdal by 50% or more creating a confusing treatment regimen; also can affect the liver and bone marrow and patient is already on Depakote and Clozaril -also considering Haldol however patient is already on 2 antipsychotics -also considering Tamoxifen used off-label however increases thrombo embolism risk and can raise the effective doses of clozapine and Risperdal ECT remains the gold standard to treat refractory jacob however patient has a guardian and [place] which would need to be amended 11/28 Patient angry, punching the wall, yelling aggressively, peers is getting scared; 1 peer felt threatened and confronted patient pushed him but both were able to be redirected. Made a threatening remark to staff i'm going to break you... Remains floridly manic, hyperverbal, intrusive... He did say yes to ECT however understands guardian needs to weigh in clinical reasoning: -patient's increasing aggression and agitation seems directly correlated with having had Thorazine and diazepam discontinued. Restarted it for the purpose of patient and milieu safety. However it later came to technical writer's attention that Thorazine is not 1 of the antipsychotics listed on his community [place]..? Options that are available are Abilify and Haldol. Cutting Tool Sharpener lowered Thorazine to 100 mg and allowed for 1 last for tonight, again for milieu and patient safety however will discontinue it and will have to see if the other options are helpful Discussed case with colleague Dr. Meza who continues to agree that using Tegretol would cause too much mixing up of med regimen and that best option is to help patient remain safe while Depakote gets a chance to become therapeutic. Depakote level today 108; will continue with Depakote ER 3000mg and get level tomorrow -talked with Patients guardian Breezy Granados who says he has no objection to patient getting ECT 11/29 Patient for the 1st time since manic episodes started, more subdued today and slept from much of the day. During periods when he was awake, remains manic, intrusive, grandiose and saying bizarre things such as I am hairy potters twin and I need to get back to [facility]. -hopefully this is the sign that patient's manic episode is starting to wane; will continue with Depakote ER 3000 mg and get another level tomorrow (The?therapeutic range for acute jacob is 50?125 mcg/mL) 11/30 Still manic -added Abilfy 10mg daily; would prefer to try Haldol (both on [place]) but since Qtc is elevated will try Abilify first...(as mentioned despite qtc elevation, risk of TdP remains very low and Haldol remains an option. Regarding depakote level: The?therapeutic range for acute jacob is 50?125 mcg/mL, and most patients respond within this range?1 https://dailymed.nlm.nih.gov/dailymed/drugInfo.cfm?nxaik=9gz404od-cag9-7183-5ry3 -163z329mohpz ?2 https://pubmed.ncbi.nlm.nih.gov/22552157 .? of note, regarding EKG with prolonged Qtc: The incidence of torsades de pointes (TdP) from antipsychotic-induced QTc prolongation is?very low, estimated at?0.01?0.1%?(1?10 per 10,000 exposures) in clinical practice?1 https://pubmed.ncbi.nlm.nih.gov/02841418 ?2 https://pubmed.ncbi.nlm.nih.gov/57619364 . ?[And in the cases where someone did actually get TdP], the case fatality of TdP is also low, with?<10%?of TdP episodes resulting in cardiac , Plan: cv Q 15 minute checks On community [place] ORDER/guardianship Patient is not appropriate for groups or to be in kitchen 1. Jacob Continue Depakote ER 3000 mg qhs -will get lab Continue Risperdal 1 mg a.m. and 4 mg q.h.s. Continue Clozaril 400 mg q.h.s.; Level: 403 and Norclozaril 137. DC Thorazine 200mg TID DC Diazpam 10mg TID; will taper and dc once jacob subsides dc Trileptal DC Ziprasidone no effect Dc zyprexa; does not seem to do much HOLD Wellbutrin XL (once jacob resolved likely re-titrate to Wellbutrin 300mg (likely increasing to 450mg triggered manic episode) STARTed Fenobibrate 160mg daily for severely elevated Triacylglycerides of 898 (pt has normal renal function) Continue other home medications -consider Ingrezza -adverse reaction to [place] (per patient) -consider Tegretol? 2. Great right toe cellulitis Increased to Keflex 500 mg qid for 7 days (discussed increased dose with hospitalist MARIA T) -examined 11/28 and cellulitis is resolving 3. TAG 898 (appears to be fasting)/Cholesterol 319 re-ordered Lipid panel: Trilgyciride 898 down to 581 on 11/18/24. Cholesterol 319 down to 317. AIC 5.5 WNL. Started Fenobibrate 160mg daily (pt has normal renal function) Change diet to Low Fat diet will consider Statin Ordered TSH (lft's WNL): 0.81 WNL Patient educated on: diagnosis Informed Consent: understands, does not understand and further education needed Reason for continued inpatient stay Substantial Risk for: inability to function Time Spent With Patient Time: Total time managing care of this patient today ____ minutes.
--- NOTE | 2024-11-30 16:46 | MHC.SL.SWA ---
Speech Pathologist Impression: Risk of Aspiration Due to: Dysphasia Diet Status: Liquid Consistency and Strategies for Safe Swallow: Liquid Intake Recommendation: Thin Liquid Intake Strategies: Solid Food Consistency: Dietary Recommendations: Regular Additional Modifications to Solid Foods: Oral Medication Intake: Whole with Liquid Please contact the pharmacy regarding appropriate crushable or liquid drug formulations that are available whenever modified delivery is recommended. Compensatory Strategies and Precautions to be Taken for Safe Swallow: Supervision While Eating and Drinking for Safe Swallow: Intermittent Supervision Foods to Avoid: Swallowing Recommended Treatments: Recommendation for Speech: NA:Typical Evaluation Comment: ON evaluation, patient presents with swallow WFL. Swallow function not factor in saliva management, as loss of motoric function, at any level, not evident. Patient is noted when engaged in speaking and interacting to drool/have poor management of saliva. ? if behavior is associated with sensory/behavioral issue secondary to ASD, and likely long standing/baseline. Medical intervention in the form of pharmacology (e.g. glycopyrrolate) is appropriate given concern of response to ECT. Therapeutic/behavioral intervention for saliva management not indicated as a part of this psychiatric stay, nor is likely to be effective given patient's lack of insight, ASD, and impulsivity. No further EQUIPMENT SPECIALIST service indicatd, EQUIPMENT SPECIALIST will discharge. Recommend patient continue on current diet of Regular, with thin liquids, pills whole with liquid. Frequency/Duration: Date Range for Service Req: Timeline to reassess: Fire And Safety Helper Clinican/Clinical Fellow: No Supervisory Statement: I have reviewed and agree with the student/clinical fellow's documentation: N/A Speech Language Pathologist: Jennifer Lentz M.A., CCC-EQUIPMENT SPECIALIST
[2024-11-30 20:00] VITALS: BP 131/67; PULSE 115; RESP 22; TEMP 36.6; O2SAT 96
[2024-12-01 13:24] VITALS: BP 136/78
[2024-12-01 17:12] VITALS: BP 128/72
[2024-12-01 20:00] VITALS: BP 126/69; PULSE 115; RESP 16; TEMP 36.8; O2SAT 94
--- NOTE | 2024-12-01 21:09 | P.PNPSI_ITS ---
Subjective Subjective Date of Service: 12/01/24 Reason For Visit: Depressive D/O Schizoaffective Subjective Notes: Conditional Voluntary Healthcare Proxy: No Guardianship: No Medical Problems Affecting Mental Status: No Interim History: Medical record and nursing notes reviewed; case discussed during rounds with team/nursing staff, and met with patient for supportive therapy/psychoeducation, as well as medication management. Patient continued to be manic, intrusive, irritable most of the day, making threats. Making grandiose and paranoid delusional statements I need to go back to [place] to protect Elver Winslow . I am . I am the new president of the country . Patient was naked in the savage asking to talk to transition social worker this morning per staffing reports. Patient remains in the group room at the other hallway. Remain on kitchen restriction, limit access to the other end of the savage. Patient compliant with medications, see PRNs for anxiety and agitation, restless, hyperverbal, hyperactive, irritable, needs a lot redirection,incongruent with mood stating that he is happy and have no anxiety or depression. Poor insight and poor judgment. Denies that he has any order diagnosis or mental health issues except for anger disorder Medication Compliance: Yes Side effects from medications: No Attending Groups: No Review of Systems Acute medical concerns: No Medical Review of Systems: unchanged Review of Systems Review of Systems Denies any shortness of breath, chest pain, dizziness, lightheadedness, abdominal pain or discomfort, nausea vomiting or diarrhea Mental Status Exam Mental Status Exam Narrative: Pt is alert and oriented; behavior is still manic, hyperverbal, intrusive with peers and staff; not resting during day; patient is not in distress; dressed in casual attire, unkempt; bilateral hand tremor; marginal hygiene; mood is described as good and affect somewhat expansive; eye contact appropriate; Speech still pressured, rambling; moderate psychomotor agitation present; thought process can be goal oriented, but also tangential; Thought content with grandiose delusions; denies any SI/HI. Denies AVH Patients insight and judgment impaired Diagnostics Vital Signs (24Hr): Vital Signs - 24 hr 12/01/24 13:24 12/01/24 17:12 12/01/24 20:00 Temperature 98.2 F Pulse Rate 115 H Respiratory Rate 16 Blood Pressure 136/78 128/72 126/69 Pulse Oximetry 94 Oxygen Delivery Method Room Air BMI result Body Mass Index 36.6 Labs 11/28/24 10:37 Labs: Laboratory Results - last 48 hr 11/30/24 08:14 Absolute Neuts (auto) 3.6 Total Bilirubin 0.2 Direct Bilirubin < 0.2 AST 46 H ALT 27 Alkaline Phosphatase 67 Ammonia 60 H Total Protein 7.5 Albumin 4.3 Valproic Acid 117.9 H* Medications Medications Current Medications Acetaminophen (Acetaminophen 325 Mg Tablet) 650 mg PO Q6H PRN PRN Reason: Headache/Pain, Scale 1-10 Last Admin: 11/28/24 16:17 Dose: 650 mg Al Hydroxide/Mg Hydroxide (Magnesium Hydrox/Alum Hydrox 30 Ml Oral.Susp) 30 ml PO Q6H PRN PRN Reason: Heartburn/Nausea Last Admin: 11/21/24 01:55 Dose: 30 ml Aripiprazole (Aripiprazole 10 Mg Tablet) 10 mg PO DAILY STEWART Last Admin: 12/01/24 07:42 Dose: 10 mg Benzocaine (Throat Lozenge, Medicated Lozenge) 1 lozenge MUCOUS MEM Q2H PRN PRN Reason: Sore Throat Last Admin: 11/28/24 21:36 Dose: 1 lozenge Bupropion HCl (Bupropion Hcl Xl 300 Mg Tab.Er.24h) 300 mg PO DAILY STEWART On Hold: 11/21/24 09:50 Last Admin: 11/21/24 09:03 Dose: 300 mg Capsaicin (Capsaicin 0.025% Cream 60 Gm Tube) 1 appl TOPICAL TID PRN; Protocol PRN Reason: leg pain Last Admin: 12/01/24 09:51 Dose: 1 appl Cephalexin HCl (Cephalexin 500 Mg Capsule) 500 mg PO QID STEWART Stop: 12/02/24 12:59 Last Admin: 12/01/24 20:28 Dose: 500 mg Clonidine HCl (Clonidine Hcl 0.1 Mg Tablet) 0.1 mg PO Q4H PRN; Protocol PRN Reason: moderate anxiety Last Admin: 12/01/24 17:12 Dose: 0.1 mg Clozapine (Clozapine 100 Mg Tablet) 400 mg PO BEDTIME STEWART Last Admin: 12/01/24 20:28 Dose: 400 mg Diazepam (Diazepam 5 Mg Tablet) 10 mg PO TID STEWART Last Admin: 12/01/24 20:28 Dose: 10 mg Diphenhydramine HCl (Diphenhydramine Hcl 25 Mg Capsule) 25 mg PO TID [facility] Last Admin: 12/01/24 20:28 Dose: 25 mg Divalproex Sodium (Divalproex Sodium Er 500 Mg Tab.Er.24h) 3,000 mg PO BEDTIME [facility] Last Admin: 12/01/24 20:28 Dose: 3,000 mg Docusate Sodium (Docusate Sodium 100 Mg Capsule) 100 mg PO BID [facility] Last Admin: 12/01/24 20:28 Dose: 100 mg Fenofibrate (Fenofibrate 160 Mg Tablet) 160 mg PO DAILY [facility] Last Admin: 12/01/24 07:42 Dose: 160 mg Fluticasone Propionate (Fluticasone Propionate Nasal 16 Gm [place]) 1 spray NOSTRIL-B BEDTIME [facility] Last Admin: 12/01/24 20:45 Dose: Not Given Fluticasone Propionate (Fluticasone Propionate Nasal 16 Gm [place]) 1 spray NOSTRIL-B DAILY PRN PRN Reason: Nasal allergy Last Admin: 11/24/24 06:25 Dose: 1 spray Glycopyrrolate (Glycopyrrolate 1 Mg Tablet) 1 mg PO TID [facility] Last Admin: 12/01/24 20:28 Dose: 1 mg Ibuprofen (Ibuprofen 400 Mg Tablet) 400 mg PO Q6H PRN PRN Reason: Pain, Moderate(Pain Scale 4-6) Last Admin: 12/01/24 10:19 Dose: 400 mg Lorazepam (Lorazepam 1 Mg Tablet) 1 mg PO Q8H PRN PRN Reason: Anxiety Last Admin: 12/01/24 10:18 Dose: 1 mg Magnesium Hydroxide (Milk Of Magnesia 30 Ml Oral.Susp) 30 ml PO DAILY PRN PRN Reason: Constipation Last Admin: 11/28/24 14:32 Dose: 30 ml Nicotine (Nicotine 21 Mg Patch.Td24) 21 mg TRANSDERMA DAILY PRN PRN Reason: smoking cessation Last Admin: 11/25/24 08:46 Dose: 21 mg Nicotine Polacrilex (Nicotine Polacrilex 2 Mg Gum) 4 mg BUCCAL Q2H PRN PRN Reason: Nicotine Cravings Last Admin: 11/30/24 21:55 Dose: 4 mg Ondansetron HCl (Ondansetron Odt 4 Mg Tab.Rapdis) 4 mg TRANSLINGU Q6H PRN PRN Reason: Nausea and Vomiting Last Admin: 11/28/24 16:14 Dose: 4 mg Polyethylene Glycol (Polyethylene Glycol 3350 17 Gm Powd.Pack) 17 gm PO DAILY STEWART Last Admin: 12/01/24 07:44 Dose: 17 gm Polyethylene Glycol (Polyethylene Glycol 3350 17 Gm Powd.Pack) 17 gm PO DAILY PRN PRN Reason: Constipation Last Admin: 11/28/24 16:16 Dose: 17 gm Risperidone (Risperidone 2 Mg Tablet) 4 mg PO BEDTIME STEWART Last Admin: 12/01/24 20:28 Dose: 4 mg Risperidone (Risperidone 1 Mg Tablet) 1 mg PO DAILY STEWART Last Admin: 12/01/24 07:42 Dose: 1 mg Tamoxifen Citrate (Tamoxifen Citrate 10 Mg Tablet) 80 mg PO DAILY STEWART On Hold: 11/27/24 10:43 Last Admin: 11/27/24 21:43 Dose: Not Given Trazodone HCl (Trazodone Hcl 50 Mg Tablet) 50 mg PO BEDTIME MRX1 PRN PRN Reason: Insomnia Last Admin: 12/01/24 20:28 Dose: 50 mg Allergies Allergies Allergy/AdvReac Type Severity Reaction Status Date / Time benztropine (From COGENTIN) Allergy Unknown UNKNOWN Verified 11/16/24 15:51 propranolol (From INDERAL LA) Allergy Unknown UNKNOWN Verified 11/16/24 15:51 chaste tree Allergy Unknown Verified 11/16/24 15:51 lithium Allergy Unknown Verified 11/16/24 15:51 Assessment & Plan Assessment & Plan (1) Schizoaffective disorder, bipolar type: Status: Acute Code(s): F25.0 - Schizoaffective disorder, bipolar type (2) Autism spectrum disorder: Status: Acute Code(s): F84.0 - Autistic disorder (3) Cellulitis: Status: Acute Code(s): L03.90 - Cellulitis, unspecified (4) Class 3 obesity: Status: Acute Code(s): E66.813 - Obesity, class 3 Plan Patient is a 34-year-old male with history of schizoaffective disorder bipolar type, Autism Spectrum Disorder, who lives in a chcf, on a [facility] who presents for depression. Patient reports that every 7 weeks (and every 4 months) medications don't work...and I feel depressed.... He says the the depression last anywhere from 2 to 12 days.. And then resolves on it's own without medication changes. Patient reports that he had suicidal ideation a few days ago, no plan but does not now. Patient says sometimes he hears sounds or voices that others do not hear, sometimes laughing noise but not very often and usually just during sleep. Discussed medication regimen and patient said that recently his Depakote was increased because he was having mood swings but it was difficult for him to give details. Discussed medication options and patient agrees to increase Wellbutrin to 450 mg. Formulation/clinical reasoning: Patient reports that episodically he still gets bouts of depression that can last for longer than a week however this seemed to resolve on their own. He is not sure what triggers them. Patient says he is already feeling better now that he is on the unit because of the friendships and interactions he has made since coming to the unit; patient signed a 3 day notice. Discussed medication options and patient agrees to increase Wellbutrin to 450 mg. Bottle Capping Machine Operator wonders if perhaps patient can remain at Wellbutrin 300 mg and just take the extra 150 mg if he starts to feel depressed, sort of as an episodic p.r.n. -patient currently on 2 antipsychotics, including Clozaril and Risperdal; -some TD and pill rolling b/l hand tremor observed; wonder if Risperdal dose could be lowered; consider Aristeo Of note patient had severely high Triacylglycerides of 898. It appears to have been taken while patient fasting however patient is not sure. TAG this high puts patient at risk for pancreatitis. Will redraw labs tomorrow morning to ensure fasting however for now will treat as if this is an accurate lab Hospital course: 11/18: Continue current management and treatment plan. 11/19: Increase Depakote to 500 mg in AM and continue 1,000 mg HS. 11/20: continue current management and treatment plan. 11/21 Patient has become manic over the past several days. Additional Depakote dose was added but patient remains manic, grandiose, labile and intrusive. 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 Patient at 1 point broke down crying about the of his parents, saying that his mother was murdered but then saying she had a brain bleed.. Patient saying that he is from [place] and is going to go back and live his life and [place]... Initially demanding to be discharged today but was able to be redirected. Patient agrees to increased medications including adding Zyprexa -will hold Wellbutrin; seems likely that increasing Wellbutrin was what triggered manic episode -Increasing bedtime Depakote to 1250 mg -patient hardly slept last night and added Zyprexa 10 mg b.i.d.; plan is to discontinue once jacob subsides -reviewed labs and repeat cholesterol shows highly elevated TAG>500 though not as high as the day before 11/22 Patient did sleep some last night with added Zyprexa. Still manic but a little less intense and though still with some grandiose ideations, much less so. Patient still intrusive to others but redirectable. Patient did agree that he was acting manic yesterday but says he is fine now and wants to discharge. He persisted in demanding for discharge today and expressed frustration when told this is not possible but remained in behavioral control. -Great right toe with cellulitis; started on Keflex -Depakote labs ordered for Wednesday *patient is not stable to return to chcf at this time. Will try to get him to retract his 3 day notice but will otherwise file for civil commitment; that said hopefully will not need to go to court and manic episode will resolve 11/23/24: Patient slept for 2 hours, was medication compliant. Denies side effect but observed have some hand tremors. Restless, racing thoughts, intrusive, poor boundaries, need multiple redirections most of the time to respect personal space. He is over friendly, bright, manic but appeared to be less manic compared to yesterday. Can be perseverative on discharge, redirectable and need to remind that he is not leaving today a couple of times. He retracted 3 day notice. He seems to be forgetful. To PRNs with mild to moderate effects. He works on puzzle, and cleaning up his room. He has an reasonable planning for the future, appeared to be grandiose no aggressive behavior, can be irritable at times when things not the way he requested. Continue to monitor for sleeping pattern. 11/24/24: Slept slightly improved compared to the night before, he was able to slept for 4 hours. Was medication compliant. Mood is I am happy. I am calm and relaxed . Reports foot pain, nursing have patient to put lotion on, encouraged to elevated legs when he resting as left food appear to be slightly swollen. He said he would like to go back to his chcf. He also asked if he can call Carla and Max to apologize to them. Read direct patient not calling so many times that may annoying other persons. He admitted that he need to give them a break . Observe want time he was on the phone, appropriate. He is slightly better compared to yesterday, able to sit still, listen to advice/redirection. Even though he has delusional, and grandiose thoughts. Thinking he see a snake in his toilet, seeing his brother coming to see him. Per nursing he had unwitnessed fall when trying to put himself sitting down on the chair but missed it. Slightly better in term of manic behaviors, redirectable and less demanding. Redirected for personal space. Accepted it without any problems. 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 With much effort, Pt remains able to be redirected; examined great rt toe which remains with clear signs of cellulites -Start Ziprasidone -obtained EKG and qtc WNL -Depakote level with much room so will switch depakote to ER so can make at bedtime to help w/ sleep and will increase dose (Depakote IR 1750mg ~ Dep ER 1999) 11/26 Patient remains manic, intrusive, grandiose, tangential. Patient is intrusive to the point where some peers are getting very angry and some feeling provoked. -So far unable to break this manic episode; so far Zyprexa and Geodon have not affected patient and patient is in danger of unintentionally inciting peer aggression. -Thorazine 100 mg did not help either; will try Thorazine 200 mg t.i.d. combined with diazepam 15 mg t.i.d. (10mg did nothing) -if Thorazine does not help, will consider Haldol; also will soon get Depakote level and maybe able to increase other 11/27 Patient remains manic, grandiose, very intrusive with peers and staff, going into patient's rooms, walking up in into rejection himself, getting very close to people making people both angry and scared. Difficult decisions regarding treatment. Discussed case with Dr. Vázquez who agrees with plan For now, will discontinue Thorazine and Valium as signwriter is somewhat concern that all this sedating medication could add on a delirium to his already manic behaviors. Instead, will try Trileptal to help break manic episode; Trileptal has the least side effect risk profile of options so will give it a try (though not very robust evidence) -Considering Tegretol however this will lower the effective dose of both clozapine and Risperdal by 50% or more creating a confusing treatment regimen; also can affect the liver and bone marrow and patient is already on Depakote and Clozaril -also considering Haldol however patient is already on 2 antipsychotics -also considering Tamoxifen used off-label however increases thrombo embolism risk and can raise the effective doses of clozapine and Risperdal ECT remains the gold standard to treat refractory jacob however patient has a guardian and [place] which would need to be amended 11/28 Patient angry, punching the wall, yelling aggressively, peers is getting scared; 1 peer felt threatened and confronted patient pushed him but both were able to be redirected. Made a threatening remark to staff i'm going to break you... Remains floridly manic, hyperverbal, intrusive... He did say yes to ECT however understands guardian needs to weigh in clinical reasoning: -patient's increasing aggression and agitation seems directly correlated with having had Thorazine and diazepam discontinued. Restarted it for the purpose of patient and milieu safety. However it later came to signwriter's attention that Thorazine is not 1 of the antipsychotics listed on his community [place]..? Options that are available are Abilify and Haldol. Bottle Capping Machine Operator lowered Thorazine to 100 mg and allowed for 1 last for tonight, again for milieu and patient safety however will discontinue it and will have to see if the other options are helpful Discussed case with colleague Dr. Meza who continues to agree that using Tegretol would cause too much mixing up of med regimen and that best option is to help patient remain safe while Depakote gets a chance to become therapeutic. Depakote level today 108; will continue with Depakote ER 3000mg and get level tomorrow -talked with Patients guardian Breezy Edmondsmyles who says he has no objection to patient getting ECT 11/29 Patient for the 1st time since manic episodes started, more subdued today and slept from much of the day. During periods when he was awake, remains manic, intrusive, grandiose and saying bizarre things such as I am hairy potters twin and I need to get back to [facility]. -hopefully this is the sign that patient's manic episode is starting to wane; will continue with Depakote ER 3000 mg and get another level tomorrow (The?therapeutic range for acute jacob is 50?125 mcg/mL) 11/30 Still manic -added Abilfy 10mg daily; would prefer to try Haldol (both on [place]) but since Qtc is elevated will try Abilify first...(as mentioned despite qtc elevation, risk of TdP remains very low and Haldol remains an option. 12/01/24: Patient continued to be manic, intrusive, irritable most of the day, making threats. Making grandiose and paranoid delusional statements I need to go back to [place] to protect Jet Goldy . I am . I am the new president of the country . Patient was naked in the savage asking to talk to transition social worker this morning per staffing reports. Patient remains in the group room at the other hallway. Remain on kitchen restriction, limit access to the other end of the savage. Patient compliant with medications, see PRNs for anxiety and agitation, restless, hyperverbal, hyperactive, irritable, needs a lot redirection,incongruent with mood stating that he is happy and have no anxiety or depression. Poor insight and poor judgment. Denies that he has any order diagnosis or mental health issues except for anger disorder VPA level on 09/11/25: 117.9 (The?therapeutic range for acute jacob is 50?125 mcg/mL) Regarding depakote level: The?therapeutic range for acute jacob is 50?125 mcg/mL, and most patients respond within this range?1 https://dailymed.nlm.nih.gov/dailymed/drugInfo.cfm?yurwr=9yy702dy-[email or web address] -310t199dzjep ?2 https://pubmed.ncbi.nlm.nih.gov/75259885 .? of note, regarding EKG with prolonged Qtc: The incidence of torsades de pointes (TdP) from antipsychotic-induced QTc prolongation is?very low, estimated at?0.01?0.1%?(1?10 per 10,000 exposures) in clinical practice?1 https://pubmed.ncbi.nlm.nih.gov/57982466 ?2 https://pubmed.ncbi.nlm.nih.gov/72440174 . ?[And in the cases where someone did actually get TdP], the case fatality of TdP is also low, with?<10%?of TdP episodes resulting in cardiac , Plan: cv Q 15 minute checks On community [place] ORDER/guardianship Patient is not appropriate for groups or to be in kitchen 1. Jacob Continue Depakote ER 3000 mg qhs -will get lab Continue Risperdal 1 mg a.m. and 4 mg q.h.s. Continue Clozaril 400 mg q.h.s.; Level: 403 and Norclozaril 137. DC Thorazine 200mg TID DC Diazpam 10mg TID; will taper and dc once jacob subsides dc Trileptal DC Ziprasidone no effect Dc zyprexa; does not seem to do much HOLD Wellbutrin XL (once jacob resolved likely re-titrate to Wellbutrin 300mg (likely increasing to 450mg triggered manic episode) STARTed Fenobibrate 160mg daily for severely elevated Triacylglycerides of 898 (pt has normal renal function) Continue other home medications -consider Ingrezza -adverse reaction to [place] (per patient) -consider Tegretol? 2. Great right toe cellulitis Increased to Keflex 500 mg qid for 7 days (discussed increased dose with hospitalist MARIA T) -examined 11/28 and cellulitis is resolving 3. TAG 898 (appears to be fasting)/Cholesterol 319 re-ordered Lipid panel: Trilgyciride 898 down to 581 on 11/18/24. Cholesterol 319 down to 317. AIC 5.5 WNL. Started Fenobibrate 160mg daily (pt has normal renal function) Change diet to Low Fat diet will consider Statin Ordered TSH (lft's WNL): 0.81 WNL Patient educated on: diagnosis, medication risk/benefits and therapeutic strategies Informed Consent: further education needed Reason for continued inpatient stay Substantial Risk for: med/psych decompensation Time Spent With Patient Time: Total time managing care of this patient today ____ minutes.
--- NOTE | 2024-12-02 | ECG_ITS ---
Test Reason : On antipyschotic medicaiton Blood Pressure : */* mmHG Vent. Rate : 101 BPM Atrial Rate : 101 BPM P-R Int : 132 ms QRS Dur : 86 ms QT Int : 380 ms P-R-T Axes : 56 4 57 degrees QTcB Int : 492 ms Sinus tachycardia Otherwise normal ECG When compared with ECG of 28-Nov-2024 15:40, No significant change was found Referred By: Rasheeda Roberson Electronically Signed By: APOLINAR MCMAHON MD
--- NOTE | 2024-12-02 07:57 | P.PNPSI_ITS ---
Subjective Subjective Date of Service: 12/02/24 Reason For Visit: Depressive D/O Schizoaffective Subjective Notes: Conditional Voluntary Healthcare Proxy: No Guardianship: No Medical Problems Affecting Mental Status: No Interim History: Medical record and nursing notes reviewed; case discussed during rounds with team/nursing staff, and met with patient for supportive therapy/psychoeducation, as well as medication management. Patient slept for 9 hours last night. Compliant with meds, less irritable and more pleasant today. Continue to delusional and grandiose. He is calmer compare to yesterday. No naked episode. Discontinue Abilify, start Haldol 5mg TID with goal to control manic/psychotic, racing thoughts/behaviors. Some mild drooling which improving per nursing. Medication Compliance: Yes Side effects from medications: No Attending Groups: No Review of Systems Acute medical concerns: No Medical Review of Systems: unchanged Review of Systems Review of Systems Denies any shortness of breath, chest pain, dizziness, lightheadedness, abdominal pain or discomfort, nausea vomiting or diarrhea Mental Status Exam Mental Status Exam Narrative: Pt is alert and oriented; behavior is still manic, hyperverbal, intrusive with peers and staff with some slightly improvement, patient is not in distress; dressed in casual attire, unkempt; bilateral hand tremor; marginal hygiene; mood is described as good and affect somewhat expansive; eye contact appropriate; Speech still pressured, rambling; mild psychomotor agitation present; thought process can be goal oriented, but also tangential; Thought content with grandiose delusions; denies any SI/HI. Denies AVH Patients insight and judgment impaired Diagnostics Vital Signs (24Hr): Vital Signs - 24 hr 12/01/24 13:24 12/01/24 17:12 12/01/24 20:00 Temperature 98.2 F Pulse Rate 115 H Respiratory Rate 16 Blood Pressure 136/78 128/72 126/69 Pulse Oximetry 94 Oxygen Delivery Method Room Air BMI result Body Mass Index 36.6 Labs 11/28/24 10:37 Labs: Laboratory Results - last 48 hr 11/30/24 08:14 Absolute Neuts (auto) 3.6 Total Bilirubin 0.2 Direct Bilirubin < 0.2 AST 46 H ALT 27 Alkaline Phosphatase 67 Ammonia 60 H Total Protein 7.5 Albumin 4.3 Valproic Acid 117.9 H* Medications Medications Current Medications Acetaminophen (Acetaminophen 325 Mg Tablet) 650 mg PO Q6H PRN PRN Reason: Headache/Pain, Scale 1-10 Last Admin: 11/28/24 16:17 Dose: 650 mg Al Hydroxide/Mg Hydroxide (Magnesium Hydrox/Alum Hydrox 30 Ml Oral.Susp) 30 ml PO Q6H PRN PRN Reason: Heartburn/Nausea Last Admin: 11/21/24 01:55 Dose: 30 ml Aripiprazole (Aripiprazole 10 Mg Tablet) 10 mg PO DAILY STEWART Last Admin: 12/01/24 07:42 Dose: 10 mg Benzocaine (Throat Lozenge, Medicated Lozenge) 1 lozenge MUCOUS MEM Q2H PRN PRN Reason: Sore Throat Last Admin: 11/28/24 21:36 Dose: 1 lozenge Bupropion HCl (Bupropion Hcl Xl 300 Mg Tab.Er.24h) 300 mg PO DAILY STEWART On Hold: 11/21/24 09:50 Last Admin: 11/21/24 09:03 Dose: 300 mg Capsaicin (Capsaicin 0.025% Cream 60 Gm Tube) 1 appl TOPICAL TID PRN; Protocol PRN Reason: leg pain Last Admin: 12/01/24 09:51 Dose: 1 appl Cephalexin HCl (Cephalexin 500 Mg Capsule) 500 mg PO QID ST[facility] Stop: 12/02/24 12:59 Last Admin: 12/01/24 20:28 Dose: 500 mg Clonidine HCl (Clonidine Hcl 0.1 Mg Tablet) 0.1 mg PO Q4H PRN; Protocol PRN Reason: moderate anxiety Last Admin: 12/01/24 17:12 Dose: 0.1 mg Clozapine (Clozapine 100 Mg Tablet) 400 mg PO BEDTIME ST[facility]ART Last Admin: 12/01/24 20:28 Dose: 400 mg Diazepam (Diazepam 5 Mg Tablet) 10 mg PO TID [facility] Last Admin: 12/01/24 20:28 Dose: 10 mg Diphenhydramine HCl (Diphenhydramine Hcl 25 Mg Capsule) 25 mg PO TID [facility] Last Admin: 12/01/24 20:28 Dose: 25 mg Divalproex Sodium (Divalproex Sodium Er 500 Mg Tab.Er.24h) 3,000 mg PO BEDTIME STEWART Last Admin: 12/01/24 20:28 Dose: 3,000 mg Docusate Sodium (Docusate Sodium 100 Mg Capsule) 100 mg PO BID [facility] Last Admin: 12/01/24 20:28 Dose: 100 mg Fenofibrate (Fenofibrate 160 Mg Tablet) 160 mg PO DAILY [facility] Last Admin: 12/01/24 07:42 Dose: 160 mg Fluticasone Propionate (Fluticasone Propionate Nasal 16 Gm [place]) 1 spray NOSTRIL-B BEDTIME [facility] Last Admin: 12/01/24 20:45 Dose: Not Given Fluticasone Propionate (Fluticasone Propionate Nasal 16 Gm [place]) 1 spray NOSTRIL-B DAILY PRN PRN Reason: Nasal allergy Last Admin: 11/24/24 06:25 Dose: 1 spray Glycopyrrolate (Glycopyrrolate 1 Mg Tablet) 1 mg PO TID [facility] Last Admin: 12/01/24 20:28 Dose: 1 mg Ibuprofen (Ibuprofen 400 Mg Tablet) 400 mg PO Q6H PRN PRN Reason: Pain, Moderate(Pain Scale 4-6) Last Admin: 12/01/24 10:19 Dose: 400 mg Lorazepam (Lorazepam 1 Mg Tablet) 1 mg PO Q8H PRN PRN Reason: Anxiety Last Admin: 12/01/24 10:18 Dose: 1 mg Magnesium Hydroxide (Milk Of Magnesia 30 Ml Oral.Susp) 30 ml PO DAILY PRN PRN Reason: Constipation Last Admin: 11/28/24 14:32 Dose: 30 ml Nicotine (Nicotine 21 Mg Patch.Td24) 21 mg TRANSDERMA DAILY PRN PRN Reason: smoking cessation Last Admin: 11/25/24 08:46 Dose: 21 mg Nicotine Polacrilex (Nicotine Polacrilex 2 Mg Gum) 4 mg BUCCAL Q2H PRN PRN Reason: Nicotine Cravings Last Admin: 11/30/24 21:55 Dose: 4 mg Ondansetron HCl (Ondansetron Odt 4 Mg Tab.Rapdis) 4 mg TRANSLINGU Q6H PRN PRN Reason: Nausea and Vomiting Last Admin: 11/28/24 16:14 Dose: 4 mg Polyethylene Glycol (Polyethylene Glycol 3350 17 Gm Powd.Pack) 17 gm PO DAILY [facility] Last Admin: 12/01/24 07:44 Dose: 17 gm Polyethylene Glycol (Polyethylene Glycol 3350 17 Gm Powd.Pack) 17 gm PO DAILY PRN PRN Reason: Constipation Last Admin: 09/09/25 16:16 Dose: 17 gm Risperidone (Risperidone 2 Mg Tablet) 4 mg PO BEDTIME [facility] Last Admin: 12/01/24 20:28 Dose: 4 mg Risperidone (Risperidone 1 Mg Tablet) 1 mg PO DAILY [facility] Last Admin: 12/01/24 07:42 Dose: 1 mg Tamoxifen Citrate (Tamoxifen Citrate 10 Mg Tablet) 80 mg PO DAILY [facility] On Hold: 11/27/24 10:43 Last Admin: 11/27/24 21:43 Dose: Not Given Trazodone HCl (Trazodone Hcl 50 Mg Tablet) 50 mg PO BEDTIME MRX1 PRN PRN Reason: Insomnia Last Admin: 12/01/24 20:28 Dose: 50 mg Allergies Allergies Allergy/AdvReac Type Severity Reaction Status Date / Time benztropine (From COG[facility]) Allergy Unknown UNKNOWN Verified 11/16/24 15:51 propranolol (From [facility]DERAL [place]) Allergy Unknown UNKNOWN Verified 11/16/24 15:51 chaste tree Allergy Unknown Verified 11/16/24 15:51 lithium Allergy Unknown Verified 11/16/24 15:51 Assessment & Plan Assessment & Plan (1) Schizoaffective disorder, bipolar type: Status: Acute Code(s): F25.0 - Schizoaffective disorder, bipolar type (2) Autism spectrum disorder: Status: Acute Code(s): F84.0 - Autistic disorder (3) Cellulitis: Status: Acute Code(s): L03.90 - Cellulitis, unspecified (4) Class 3 obesity: Status: Acute Code(s): E66.813 - Obesity, class 3 Plan Patient is a 34-year-old male with history of schizoaffective disorder bipolar type, Autism Spectrum Disorder, who lives in a usp, on a [facility] who presents for depression. Patient reports that every 7 weeks (and every 4 months) medications don't work...and I feel depressed.... He says the the depression last anywhere from 2 to 12 days.. And then resolves on it's own without medication changes. Patient reports that he had suicidal ideation a few days ago, no plan but does not now. Patient says sometimes he hears sounds or voices that others do not hear, sometimes laughing noise but not very often and usually just during sleep. Discussed medication regimen and patient said that recently his Depakote was increased because he was having mood swings but it was difficult for him to give details. Discussed medication options and patient agrees to increase Wellbutrin to 450 mg. Formulation/clinical reasoning: Patient reports that episodically he still gets bouts of depression that can last for longer than a week however this seemed to resolve on their own. He is not sure what triggers them. Patient says he is already feeling better now that he is on the unit because of the friendships and interactions he has made since coming to the unit; patient signed a 3 day notice. Discussed medication options and patient agrees to increase Wellbutrin to 450 mg. Risk Management Analyst wonders if perhaps patient can remain at Wellbutrin 300 mg and just take the extra 150 mg if he starts to feel depressed, sort of as an episodic p.r.n. -patient currently on 2 antipsychotics, including Clozaril and Risperdal; -some TD and pill rolling b/l hand tremor observed; wonder if Risperdal dose could be lowered; consider Ingrezza Of note patient had severely high Triacylglycerides of 898. It appears to have been taken while patient fasting however patient is not sure. TAG this high puts patient at risk for pancreatitis. Will redraw labs tomorrow morning to ensure fasting however for now will treat as if this is an accurate lab Hospital course: 11/18: Continue current management and treatment plan. 11/19: Increase Depakote to 500 mg in AM and continue 1,000 mg HS. 11/20: continue current management and treatment plan. 11/21 Patient has become manic over the past several days. Additional Depakote dose was added but patient remains manic, grandiose, labile and intrusive. 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 Patient at 1 point broke down crying about the of his parents, saying that his mother was murdered but then saying she had a brain bleed.. Patient saying that he is from [place] and is going to go back and live his life and [place]... Initially demanding to be discharged today but was able to be redirected. Patient agrees to increased medications including adding Zyprexa -will hold Wellbutrin; seems likely that increasing Wellbutrin was what triggered manic episode -Increasing bedtime Depakote to 1250 mg -patient hardly slept last night and added Zyprexa 10 mg b.i.d.; plan is to discontinue once jacob subsides -reviewed labs and repeat cholesterol shows highly elevated TAG>500 though not as high as the day before 11/22 Patient did sleep some last night with added Zyprexa. Still manic but a little less intense and though still with some grandiose ideations, much less so. Patient still intrusive to others but redirectable. Patient did agree that he was acting manic yesterday but says he is fine now and wants to discharge. He persisted in demanding for discharge today and expressed frustration when told this is not possible but remained in behavioral control. -Great right toe with cellulitis; started on Keflex -Depakote labs ordered for Wednesday *patient is not stable to return to usp at this time. Will try to get him to retract his 3 day notice but will otherwise file for civil commitment; that said hopefully will not need to go to court and manic episode will resolve 11/23/24: Patient slept for 2 hours, was medication compliant. Denies side effect but observed have some hand tremors. Restless, racing thoughts, intrusive, poor boundaries, need multiple redirections most of the time to respect personal space. He is over friendly, bright, manic but appeared to be less manic compared to yesterday. Can be perseverative on discharge, redirectable and need to remind that he is not leaving today a couple of times. He retracted 3 day notice. He seems to be forgetful. To PRNs with mild to moderate effects. He works on puzzle, and cleaning up his room. He has an reasonable planning for the future, appeared to be grandiose no aggressive behavior, can be irritable at times when things not the way he requested. Continue to monitor for sleeping pattern. 11/24/24: Slept slightly improved compared to the night before, he was able to slept for 4 hours. Was medication compliant. Mood is I am happy. I am calm and relaxed . Reports foot pain, nursing have patient to put lotion on, encouraged to elevated legs when he resting as left food appear to be slightly swollen. He said he would like to go back to his usp. He also asked if he can call Carla and Max to apologize to them. Read direct patient not calling so many times that may annoying other persons. He admitted that he need to give them a break . Observe want time he was on the phone, appropriate. He is slightly better compared to yesterday, able to sit still, listen to advice/redirection. Even though he has delusional, and grandiose thoughts. Thinking he see a snake in his toilet, seeing his brother coming to see him. Per nursing he had unwitnessed fall when trying to put himself sitting down on the chair but missed it. Slightly better in term of manic behaviors, redirectable and less demanding. Redirected for personal space. Accepted it without any problems. 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 With much effort, Pt remains able to be redirected; examined great rt toe which remains with clear signs of cellulites -Start Ziprasidone -obtained EKG and qtc WNL -Depakote level with much room so will switch depakote to ER so can make at bedtime to help w/ sleep and will increase dose (Depakote IR 1750mg ~ Dep ER 2000) 11/26 Patient remains manic, intrusive, grandiose, tangential. Patient is intrusive to the point where some peers are getting very angry and some feeling provoked. -So far unable to break this manic episode; so far Zyprexa and Geodon have not affected patient and patient is in danger of unintentionally inciting peer aggression. -Thorazine 100 mg did not help either; will try Thorazine 200 mg t.i.d. combined with diazepam 15 mg t.i.d. (10mg did nothing) -if Thorazine does not help, will consider Haldol; also will soon get Depakote level and maybe able to increase other 11/27 Patient remains manic, grandiose, very intrusive with peers and staff, going into patient's rooms, walking up in into rejection himself, getting very close to people making people both angry and scared. Difficult decisions regarding treatment. Discussed case with Dr. Vázquez who agrees with plan For now, will discontinue Thorazine and Valium as group underwriter is somewhat concern that all this sedating medication could add on a delirium to his already manic behaviors. Instead, will try Trileptal to help break manic episode; Trileptal has the least side effect risk profile of options so will give it a try (though not very robust evidence) -Considering Tegretol however this will lower the effective dose of both clozapine and Risperdal by 50% or more creating a confusing treatment regimen; also can affect the liver and bone marrow and patient is already on Depakote and Clozaril -also considering Haldol however patient is already on 2 antipsychotics -also considering Tamoxifen used off-label however increases thrombo embolism risk and can raise the effective doses of clozapine and Risperdal ECT remains the gold standard to treat refractory jacob however patient has a guardian and Vela which would need to be amended 11/28 Patient angry, punching the wall, yelling aggressively, peers is getting scared; 1 peer felt threatened and confronted patient pushed him but both were able to be redirected. Made a threatening remark to staff i'm going to break you... Remains floridly manic, hyperverbal, intrusive... He did say yes to ECT however understands guardian needs to weigh in clinical reasoning: -patient's increasing aggression and agitation seems directly correlated with having had Thorazine and diazepam discontinued. Restarted it for the purpose of patient and milieu safety. However it later came to group underwriter's attention that Thorazine is not 1 of the antipsychotics listed on his community Vela..? Options that are available are Abilify and Haldol. Risk Management Analyst lowered Thorazine to 100 mg and allowed for 1 last for tonight, again for milieu and patient safety however will discontinue it and will have to see if the other options are helpful Discussed case with colleague Dr. Meza who continues to agree that using Tegretol would cause too much mixing up of med regimen and that best option is to help patient remain safe while Depakote gets a chance to become therapeutic. Depakote level today 108; will continue with Depakote ER 3000mg and get level tomorrow -talked with Patients guardian Breezy Granados who says he has no objection to patient getting ECT 11/29 Patient for the 1st time since manic episodes started, more subdued today and slept from much of the day. During periods when he was awake, remains manic, intrusive, grandiose and saying bizarre things such as I am hairy potters twin and I need to get back to [facility]. -hopefully this is the sign that patient's manic episode is starting to wane; will continue with Depakote ER 3000 mg and get another level tomorrow (The?therapeutic range for acute jacob is 50?125 mcg/mL) 11/30 Still manic -added Abilfy 10mg daily; would prefer to try Haldol (both on Vela) but since Qtc is elevated will try Abilify first...(as mentioned despite qtc elevation, risk of TdP remains very low and Haldol remains an option. 12/01/24: Patient continued to be manic, intrusive, irritable most of the day, making threats. Making grandiose and paranoid delusional statements I need to go back to [place] to protect Jet Goldy . I am . I am the new president of the country . Patient was naked in the savage asking to talk to social scientist this morning per staffing reports. Patient remains in the group room at the other hallway. Remain on kitchen restriction, limit access to the other end of the savage. Patient compliant with medications, see PRNs for anxiety and agitation, restless, hyperverbal, hyperactive, irritable, needs a lot redirection,incongruent with mood stating that he is happy and have no anxiety or depression. Poor insight and poor judgment. Denies that he has any order diagnosis or mental health issues except for anger disorder VPA level on 11/30/24: 117.9 (The?therapeutic range for acute jacob is 50?125 mcg/mL) 12/02/24: Patient slept for 9 hours last night. Compliant with meds, less irritable and more pleasant today. Continue to delusional and grandiose. He is calmer compare to yesterday. No naked episode. Discontinue Abilify, start Haldol 5mg TID with goal to control manic/psychotic, racing thoughts/behaviors. Some mild drooling which improving per nursing. Lactulose 20mg BID. (Ammnonia level 60H) Discontinue Abilfy. start Haldol 5mg TID. EKG done- no change compare to previous record. Slightly prolong QTc. Regarding depakote level: The?therapeutic range for acute jacob is 50?125 mcg/mL, and most patients respond within this range?1 https://dailymed.nlm.nih.gov/dailymed/drugInfo.cfm?dzkhe=9ea453mh-[email or web address] [email or web address] ?2 https://pubmed.ncbi.nlm.nih.gov/60968169 .? of note, regarding EKG with prolonged Qtc: The incidence of torsades de pointes (TdP) from antipsychotic-induced QTc prolongation is?very low, estimated at?0.01?0.1%?(1?10 per 10,000 exposures) in clinical practice?1 https://pubmed.ncbi.nlm.nih.gov/64000978 ?2 https://pubmed.ncbi.nlm.nih.gov/47589065 . ?[And in the cases where someone did actually get TdP], the case fatality of TdP is also low, with?<10%?of TdP episodes resulting in cardiac , Plan: CV Q 15 minute checks On [facility] ORDER/guardianship Patient is not appropriate for groups or to be in kitchen 1. Jacob Continue Depakote ER 3000 mg qhs -will get lab Continue Risperdal 1 mg a.m. and 4 mg q.h.s. Continue Clozaril 400 mg q.h.s.; Level: 403 and Norclozaril 137. DC Thorazine 200mg TID DC Diazpam 10mg TID; will taper and dc once jacob subsides dc Trileptal DC Ziprasidone no effect Dc zyprexa; does not seem to do much HOLD Wellbutrin XL (once jacob resolved likely re-titrate to Wellbutrin 300mg (likely increasing to 450mg triggered manic episode) STARTed Fenobibrate 160mg daily for severely elevated Triacylglycerides of 898 (pt has normal renal function) Continue other home medications -consider Ingrezza -adverse reaction to [place] (per patient) -consider Tegretol? 2. Great right toe cellulitis Increased to Keflex 500 mg qid for 7 days (discussed increased dose with hospitalist MARIA T) -examined 11/28 and cellulitis is resolving 3. TAG 898 (appears to be fasting)/Cholesterol 319 re-ordered Lipid panel: Trilgyciride 898 down to 581 on 11/18/24. Cholesterol 319 down to 317. AIC 5.5 WNL. Started Fenobibrate 160mg daily (pt has normal renal function) Change diet to Low Fat diet will consider Statin Ordered TSH (lft's WNL): 0.81 WNL Patient educated on: medication risk/benefits and therapeutic strategies Informed Consent: further education needed Reason for continued inpatient stay Substantial Risk for: med/psych decompensation Time Spent With Patient Time: Total time managing care of this patient today ____ minutes.
[2024-12-02 08:00] VITALS: BP 141/78; PULSE 112; RESP 16; TEMP 36.3; O2SAT 96
[2024-12-02 20:00] VITALS: BP 125/60; PULSE 110; RESP 15; TEMP 36.9; O2SAT 94
[2024-12-03 08:00] VITALS: BP 141/73; PULSE 102; RESP 18; TEMP 36.3; O2SAT 97
[2024-12-03] MEDS: Throat Lozenge, Medicated LOZENGE 1 LOZENGE MUCOUS MEM (14:24)
[2024-12-03 19:54] VITALS: BP 132/72; PULSE 122; RESP 15; TEMP 36.6; O2SAT 96
--- NOTE | 2024-12-03 21:40 | HO.PSYCHPN ---
Subjective Subjective Date of Service: 12/03/24 Reason For Visit: Depressive D/O Schizoaffective Subjective Notes: Conditional Voluntary Healthcare Proxy: Yes Guardianship: Yes Medical Problems Affecting Mental Status: No Interim History: Medical record and nursing notes reviewed; case discussed during rounds with team/nursing staff, and met with patient for supportive therapy/psychoeducation, as well as medication management. Patient slept for 8 hours, compliant with medications,, appeared to have tremors, and drooling which is not worsening. Patient appeared to be sedated this morning with mild irritable mood, sometimes he hearing from his room loudly, but spend more time in his room today. Slightly less intrusive. Continued to be delusional and grandiose. He has loose stool, Colace and MiraLax was held but continue offer lactulose. We will check ammonia level tomorrow. Observe by lateral lower extremity edema. Hospitalist consult placed. Medication Compliance: Yes Side effects from medications: Yes (tremor and drooling which was not got worse ) Attending Groups: No Review of Systems Acute medical concerns: No Medical Review of Systems: unchanged Review of Systems Review of Systems Edema on bilateral feet Mental Status Exam Mental Status Exam Narrative: Pt is alert and oriented; behavior is still manic, hyperverbal, intrusive with peers and staff with some slightly improvement, patient is not in distress; dressed in casual attire, unkempt; bilateral hand tremor; marginal hygiene; mood is described as good and affect somewhat expansive; eye contact appropriate; Speech still pressured, rambling; mild psychomotor agitation present; thought process can be goal oriented, but also tangential; Thought content with grandiose delusions; denies any SI/HI. Denies AVH Patients insight and judgment impaired Diagnostics Vital Signs (24Hr): Vital Signs - 24 hr 12/03/24 08:00 12/03/24 19:54 Temperature 97.3 F 97.9 F Pulse Rate 102 H 122 H Respiratory Rate 18 15 Blood Pressure 141/73 H 132/72 Pulse Oximetry 97 96 Oxygen Delivery Method Room Air BMI result Body Mass Index 36.6 Labs 11/28/24 10:37 Medications Medications Current Medications Acetaminophen (Acetaminophen 325 Mg Tablet) 650 mg PO Q6H PRN PRN Reason: Headache/Pain, Scale 1-10 Last Admin: 11/28/24 16:17 Dose: 650 mg Al Hydroxide/Mg Hydroxide (Magnesium Hydrox/Alum Hydrox 30 Ml Oral.Susp) 30 ml PO Q6H PRN PRN Reason: Heartburn/Nausea Last Admin: 11/21/24 01:55 Dose: 30 ml Benzocaine (Throat Lozenge, Medicated Lozenge) 1 lozenge MUCOUS MEM Q2H PRN PRN Reason: Sore Throat Last Admin: 12/03/24 14:24 Dose: 1 lozenge Bupropion HCl (Bupropion Hcl Xl 300 Mg Tab.Er.24h) 300 mg PO DAILY [facility] On Hold: 11/21/24 09:50 Last Admin: 11/21/24 09:03 Dose: 300 mg Capsaicin (Capsaicin 0.025% Cream 60 Gm Tube) 1 appl TOPICAL TID PRN; Protocol PRN Reason: leg pain Last Admin: 12/01/24 09:51 Dose: 1 appl Clonidine HCl (Clonidine Hcl 0.1 Mg Tablet) 0.1 mg PO Q4H PRN; Protocol PRN Reason: moderate anxiety Last Admin: 12/01/24 17:12 Dose: 0.1 mg Clozapine (Clozapine 100 Mg Tablet) 400 mg PO BEDTIME [facility] Last Admin: 12/03/24 20:59 Dose: 400 mg Diazepam (Diazepam 5 Mg Tablet) 10 mg PO TID [facility] Last Admin: 12/03/24 21:00 Dose: 10 mg Diphenhydramine HCl (Diphenhydramine Hcl 25 Mg Capsule) 25 mg PO TID [facility] Last Admin: 12/03/24 20:34 Dose: 25 mg Divalproex Sodium (Divalproex Sodium Er 500 Mg Tab.Er.24h) 3,000 mg PO BEDTIME [facility] Last Admin: 12/03/24 20:25 Dose: 3,000 mg Docusate Sodium (Docusate Sodium 100 Mg Capsule) 100 mg PO BID [facility] Last Admin: 12/03/24 20:27 Dose: 100 mg Fenofibrate (Fenofibrate 160 Mg Tablet) 160 mg PO DAILY [facility] Last Admin: 12/03/24 08:49 Dose: 160 mg Fluticasone Propionate (Fluticasone Propionate Nasal 16 Gm Lamar) 1 spray NOSTRIL-B BEDTIME [facility] Last Admin: 12/03/24 20:36 Dose: Not Given Fluticasone Propionate (Fluticasone Propionate Nasal 16 Gm Lamar) 1 spray NOSTRIL-B DAILY PRN PRN Reason: Nasal allergy Last Admin: 11/24/24 06:25 Dose: 1 spray Glycopyrrolate (Glycopyrrolate 1 Mg Tablet) 1 mg PO TID [facility] Last Admin: 12/03/24 20:27 Dose: 1 mg Haloperidol (Haloperidol 5 Mg Tablet) 5 mg PO TID [facility] Last Admin: 12/03/24 21:00 Dose: 5 mg Ibuprofen (Ibuprofen 400 Mg Tablet) 400 mg PO Q6H PRN PRN Reason: Pain, Moderate(Pain Scale 4-6) Last Admin: 12/01/24 10:19 Dose: 400 mg Lactulose (Lactulose 20 Gm/30 Ml Solution) 20 gm PO BID [facility] Last Admin: 12/03/24 20:36 Dose: Not Given Lorazepam (Lorazepam 1 Mg Tablet) 1 mg PO Q8H PRN PRN Reason: Anxiety Last Admin: 12/02/24 12:00 Dose: 1 mg Magnesium Hydroxide (Milk Of Magnesia 30 Ml Oral.Susp) 30 ml PO DAILY PRN PRN Reason: Constipation Last Admin: 11/28/24 14:32 Dose: 30 ml Nicotine (Nicotine 21 Mg Patch.Td24) 21 mg TRANSDERMA DAILY PRN PRN Reason: smoking cessation Last Admin: 11/25/24 08:46 Dose: 21 mg Nicotine Polacrilex (Nicotine Polacrilex 2 Mg Gum) 4 mg BUCCAL Q2H PRN PRN Reason: Nicotine Cravings Last Admin: 11/30/24 21:55 Dose: 4 mg Ondansetron HCl (Ondansetron Odt 4 Mg Tab.Rapdis) 4 mg TRANSLINGU Q6H PRN PRN Reason: Nausea and Vomiting Last Admin: 11/28/24 16:14 Dose: 4 mg Polyethylene Glycol (Polyethylene Glycol 3350 17 Gm Powd.Pack) 17 gm PO DAILY [facility] Last Admin: 12/03/24 08:52 Dose: Not Given Polyethylene Glycol (Polyethylene Glycol 3350 17 Gm Powd.Pack) 17 gm PO DAILY PRN PRN Reason: Constipation Last Admin: 11/28/24 16:16 Dose: 17 gm Risperidone (Risperidone 2 Mg Tablet) 4 mg PO BEDTIME [facility] Last Admin: 12/03/24 20:59 Dose: 4 mg Risperidone (Risperidone 1 Mg Tablet) 1 mg PO DAILY [facility] Last Admin: 12/03/24 08:50 Dose: 1 mg Tamoxifen Citrate (Tamoxifen Citrate 10 Mg Tablet) 80 mg PO DAILY [facility] On Hold: 11/27/24 10:43 Last Admin: 11/27/24 21:43 Dose: Not Given Trazodone HCl (Trazodone Hcl 50 Mg Tablet) 50 mg PO BEDTIME MRX1 PRN PRN Reason: Insomnia Last Admin: 12/02/24 20:49 Dose: 50 mg Allergies Allergies Allergy/AdvReac Type Severity Reaction Status Date / Time benztropine (From COG[facility]) Allergy Unknown UNKNOWN Verified 11/16/24 15:51 propranolol (From [facility]DERAL [place]) Allergy Unknown UNKNOWN Verified 11/16/24 15:51 chaste tree Allergy Unknown Verified 11/16/24 15:51 lithium Allergy Unknown Verified 11/16/24 15:51 Assessment & Plan Assessment & Plan (1) Schizoaffective disorder, bipolar type: Status: Acute Code(s): F25.0 - Schizoaffective disorder, bipolar type (2) Autism spectrum disorder: Status: Acute Code(s): F84.0 - Autistic disorder (3) Cellulitis: Status: Acute Code(s): L03.90 - Cellulitis, unspecified (4) Class 3 obesity: Status: Acute Code(s): E66.813 - Obesity, class 3 Plan Patient is a 34-year-old male with history of schizoaffective disorder bipolar type, Autism Spectrum Disorder, who lives in a alf, on a [facility] who presents for depression. Patient reports that every 7 weeks (and every 4 months) medications don't work...and I feel depressed.... He says the the depression last anywhere from 2 to 12 days.. And then resolves on it's own without medication changes. Patient reports that he had suicidal ideation a few days ago, no plan but does not now. Patient says sometimes he hears sounds or voices that others do not hear, sometimes laughing noise but not very often and usually just during sleep. Discussed medication regimen and patient said that recently his Depakote was increased because he was having mood swings but it was difficult for him to give details. Discussed medication options and patient agrees to increase Wellbutrin to 450 mg. Formulation/clinical reasoning: Patient reports that episodically he still gets bouts of depression that can last for longer than a week however this seemed to resolve on their own. He is not sure what triggers them. Patient says he is already feeling better now that he is on the unit because of the friendships and interactions he has made since coming to the unit; patient signed a 3 day notice. Discussed medication options and patient agrees to increase Wellbutrin to 450 mg. Motion Picture Actor wonders if perhaps patient can remain at Wellbutrin 300 mg and just take the extra 150 mg if he starts to feel depressed, sort of as an episodic p.r.n. -patient currently on 2 antipsychotics, including Clozaril and Risperdal; -some TD and pill rolling b/l hand tremor observed; wonder if Risperdal dose could be lowered; consider Ingrezza Of note patient had severely high Triacylglycerides of 898. It appears to have been taken while patient fasting however patient is not sure. TAG this high puts patient at risk for pancreatitis. Will redraw labs tomorrow morning to ensure fasting however for now will treat as if this is an accurate lab Hospital course: 11/18: Continue current management and treatment plan. 11/19: Increase Depakote to 500 mg in AM and continue 1,000 mg HS. 11/20: continue current management and treatment plan. 11/21 Patient has become manic over the past several days. Additional Depakote dose was added but patient remains manic, grandiose, labile and intrusive. 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 Patient at 1 point broke down crying about the of his parents, saying that his mother was murdered but then saying she had a brain bleed.. Patient saying that he is from [place] and is going to go back and live his life and [place]... Initially demanding to be discharged today but was able to be redirected. Patient agrees to increased medications including adding Zyprexa -will hold Wellbutrin; seems likely that increasing Wellbutrin was what triggered manic episode -Increasing bedtime Depakote to 1250 mg -patient hardly slept last night and added Zyprexa 10 mg b.i.d.; plan is to discontinue once jacob subsides -reviewed labs and repeat cholesterol shows highly elevated TAG>500 though not as high as the day before 11/22 Patient did sleep some last night with added Zyprexa. Still manic but a little less intense and though still with some grandiose ideations, much less so. Patient still intrusive to others but redirectable. Patient did agree that he was acting manic yesterday but says he is fine now and wants to discharge. He persisted in demanding for discharge today and expressed frustration when told this is not possible but remained in behavioral control. -Great right toe with cellulitis; started on Keflex -Depakote labs ordered for Wednesday *patient is not stable to return to alf at this time. Will try to get him to retract his 3 day notice but will otherwise file for civil commitment; that said hopefully will not need to go to court and manic episode will resolve 11/23/24: Patient slept for 2 hours, was medication compliant. Denies side effect but observed have some hand tremors. Restless, racing thoughts, intrusive, poor boundaries, need multiple redirections most of the time to respect personal space. He is over friendly, bright, manic but appeared to be less manic compared to yesterday. Can be perseverative on discharge, redirectable and need to remind that he is not leaving today a couple of times. He retracted 3 day notice. He seems to be forgetful. To PRNs with mild to moderate effects. He works on puzzle, and cleaning up his room. He has an reasonable planning for the future, appeared to be grandiose no aggressive behavior, can be irritable at times when things not the way he requested. Continue to monitor for sleeping pattern. 11/24/24: Slept slightly improved compared to the night before, he was able to slept for 4 hours. Was medication compliant. Mood is I am happy. I am calm and relaxed . Reports foot pain, nursing have patient to put lotion on, encouraged to elevated legs when he resting as left food appear to be slightly swollen. He said he would like to go back to his alf. He also asked if he can call Carla and Max to apologize to them. Read direct patient not calling so many times that may annoying other persons. He admitted that he need to give them a break . Observe want time he was on the phone, appropriate. He is slightly better compared to yesterday, able to sit still, listen to advice/redirection. Even though he has delusional, and grandiose thoughts. Thinking he see a snake in his toilet, seeing his brother coming to see him. Per nursing he had unwitnessed fall when trying to put himself sitting down on the chair but missed it. Slightly better in term of manic behaviors, redirectable and less demanding. Redirected for personal space. Accepted it without any problems. 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 With much effort, Pt remains able to be redirected; examined great rt toe which remains with clear signs of cellulites -Start Ziprasidone -obtained EKG and qtc WNL -Depakote level with much room so will switch depakote to ER so can make at bedtime to help w/ sleep and will increase dose (Depakote IR 1750mg ~ Dep ER 2000) 11/26 Patient remains manic, intrusive, grandiose, tangential. Patient is intrusive to the point where some peers are getting very angry and some feeling provoked. -So far unable to break this manic episode; so far Zyprexa and Geodon have not affected patient and patient is in danger of unintentionally inciting peer aggression. -Thorazine 100 mg did not help either; will try Thorazine 200 mg t.i.d. combined with diazepam 15 mg t.i.d. (10mg did nothing) -if Thorazine does not help, will consider Haldol; also will soon get Depakote level and maybe able to increase other 11/27 Patient remains manic, grandiose, very intrusive with peers and staff, going into patient's rooms, walking up in into rejection himself, getting very close to people making people both angry and scared. Difficult decisions regarding treatment. Discussed case with Dr. Vázquez who agrees with plan For now, will discontinue Thorazine and Valium as journalists and other writers is somewhat concern that all this sedating medication could add on a delirium to his already manic behaviors. Instead, will try Trileptal to help break manic episode; Trileptal has the least side effect risk profile of options so will give it a try (though not very robust evidence) -Considering Tegretol however this will lower the effective dose of both clozapine and Risperdal by 50% or more creating a confusing treatment regimen; also can affect the liver and bone marrow and patient is already on Depakote and Clozaril -also considering Haldol however patient is already on 2 antipsychotics -also considering Tamoxifen used off-label however increases thrombo embolism risk and can raise the effective doses of clozapine and Risperdal ECT remains the gold standard to treat refractory jacob however patient has a guardian and [place] which would need to be amended 11/28 Patient angry, punching the wall, yelling aggressively, peers is getting scared; 1 peer felt threatened and confronted patient pushed him but both were able to be redirected. Made a threatening remark to staff i'm going to break you... Remains floridly manic, hyperverbal, intrusive... He did say yes to ECT however understands guardian needs to weigh in clinical reasoning: -patient's increasing aggression and agitation seems directly correlated with having had Thorazine and diazepam discontinued. Restarted it for the purpose of patient and milieu safety. However it later came to journalists and other writers's attention that Thorazine is not 1 of the antipsychotics listed on his community [place]..? Options that are available are Abilify and Haldol. Motion Picture Actor lowered Thorazine to 100 mg and allowed for 1 last for tonight, again for milieu and patient safety however will discontinue it and will have to see if the other options are helpful Discussed case with colleague Dr. Meza who continues to agree that using Tegretol would cause too much mixing up of med regimen and that best option is to help patient remain safe while Depakote gets a chance to become therapeutic. Depakote level today 108; will continue with Depakote ER 3000mg and get level tomorrow -talked with Patients guardian Breezy Granados who says he has no objection to patient getting ECT 11/29 Patient for the 1st time since manic episodes started, more subdued today and slept from much of the day. During periods when he was awake, remains manic, intrusive, grandiose and saying bizarre things such as I am hairy potters twin and I need to get back to [facility]. -hopefully this is the sign that patient's manic episode is starting to wane; will continue with Depakote ER 3000 mg and get another level tomorrow (The?therapeutic range for acute jacob is 50?125 mcg/mL) 11/30 Still manic -added Abilfy 10mg daily; would prefer to try Haldol (both on [place]) but since Qtc is elevated will try Abilify first...(as mentioned despite qtc elevation, risk of TdP remains very low and Haldol remains an option. 12/01/24: Patient continued to be manic, intrusive, irritable most of the day, making threats. Making grandiose and paranoid delusional statements I need to go back to [place] to protect Jet Goldy . I am . I am the new president of the country . Patient was naked in the savage asking to talk to older adult social work specialist this morning per staffing reports. Patient remains in the group room at the other hallway. Remain on kitchen restriction, limit access to the other end of the savage. Patient compliant with medications, see PRNs for anxiety and agitation, restless, hyperverbal, hyperactive, irritable, needs a lot redirection,incongruent with mood stating that he is happy and have no anxiety or depression. Poor insight and poor judgment. Denies that he has any order diagnosis or mental health issues except for anger disorder VPA level on 11/30/24: 117.9 (The?therapeutic range for acute jacob is 50?125 mcg/mL) 12/02/24: Patient slept for 9 hours last night. Compliant with meds, less irritable and more pleasant today. Continue to delusional and grandiose. He is calmer compare to yesterday. No naked episode. Discontinue Abilify, start Haldol 5mg TID with goal to control manic/psychotic, racing thoughts/behaviors. Some mild drooling which improving per nursing. Lactulose 20mg BID. (Ammnonia level 60H) Discontinue Abilfy. start Haldol 5mg TID. EKG done- no change compare to previous record. Slightly prolong QTc. 12/03/24: Patient slept for 8 hours, compliant with medications,, appeared to have tremors, and drooling which is not worsening. Patient appeared to be sedated this morning with mild irritable mood, sometimes he hearing from his room loudly, but spend more time in his room today. Slightly less intrusive. Continued to be delusional and grandiose. He has loose stool, Colace and MiraLax was held but continue offer lactulose. We will check ammonia level tomorrow. Observe by lateral lower extremity edema. Hospitalist consult placed. Regarding depakote level: The?therapeutic range for acute jacob is 50?125 mcg/mL, and most patients respond within this range?1https://dailymed.nlm.nih.gov/dailymed/drugInfo.cfm?vocyp=[email or web address]?2https://pubmed.ncbi.nlm.nih.gov/83051070.? of note, regarding EKG with prolonged Qtc: The incidence of torsades de pointes (TdP) from antipsychotic-induced QTc prolongation is?very low, estimated at?0.01?0.1%?(1?10 per 10,000 exposures) in clinical practice?1https://pubmed.ncbi.nlm.nih.gov/88843167?2https://pubmed.ncbi.nlm.nih.gov/37012858. ?[And in the cases where someone did actually get TdP], the case fatality of TdP is also low, with?<10%?of TdP episodes resulting in cardiac , Plan: CV Q 15 minute checks On community [place] ORDER/guardianship Patient is not appropriate for groups or to be in kitchen 1. Jacob Continue Depakote ER 3000 mg qhs -will get lab Continue Risperdal 1 mg a.m. and 4 mg q.h.s. Continue Clozaril 400 mg q.h.s.; Level: 403 and Norclozaril 137. DC Thorazine 200mg TID DC Diazpam 10mg TID; will taper and dc once jacob subsides dc Trileptal DC Ziprasidone no effect Dc zyprexa; does not seem to do much HOLD Wellbutrin XL (once jacob resolved likely re-titrate to Wellbutrin 300mg (likely increasing to 450mg triggered manic episode) STARTed Fenobibrate 160mg daily for severely elevated Triacylglycerides of 898 (pt has normal renal function) Continue other home medications -consider Ingrezza -adverse reaction to [place] (per patient) -consider Tegretol? 2. Great right toe cellulitis Increased to Keflex 500 mg qid for 7 days (discussed increased dose with hospitalist MARIA T) -examined 11/28 and cellulitis is resolving 3. TAG 898 (appears to be fasting)/Cholesterol 319 re-ordered Lipid panel: Trilgyciride 898 down to 581 on 11/18/24. Cholesterol 319 down to 317. AIC 5.5 WNL. Started Fenobibrate 160mg daily (pt has normal renal function) Change diet to Low Fat diet will consider Statin Ordered TSH (lft's WNL): 0.81 WNL Patient educated on: medication risk/benefits and therapeutic strategies Informed Consent: further education needed Reason for continued inpatient stay Substantial Risk for: med/psych decompensation Time Spent With Patient Time: Total time managing care of this patient today ____ minutes.
[2024-12-04 07:48] VITALS: BP 134/86; PULSE 113; TEMP 36.4; O2SAT 99
--- NOTE | 2024-12-04 08:23 | P.PNIM_ITS ---
Subjective Subjective Date of Service: 12/04/24 Interval History: Patient is seen for edema. 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 His ammonia level was slightly elevated, repeated and is improving. His triglycerides significantly improved to 150. Nursing reports that he has increased edema to bilateral lower legs. He denies any shortness of breath, appears euvolemic on exam. Patient has periods where he is very manic and paces the hallways frequently likely contributing to edema in his lower legs. He does not elevate his legs, and does not follow any specific dietary recommendations. He denies chest pain, blood pressure has been stable. Has no specific concerns. Review of Systems Denies any shortness of breath, chest pain, dizziness, lightheadedness, abdominal pain or discomfort, nausea vomiting or diarrhea Physical Exam 2 Exam: Exam: CONST: Alert and oriented, in NAD. Well nourished HEENT: Normocephalic, atraumatic, MMM, Eyes clear, Neck supple RESP: Lungs clear, RRR even and regular HEART:,RRR, S1, S2. Trace edema to bilateral lower legs GI:Abdomen Soft NT, ND. + BS times four :Deferred SKIN: Warm dry and intact, no visible lesions or rashes. Thickened fungal nail to left great toe. NEURO:CN II-XII Intact bilaterally, Sensation intact. Speech clear PSYCH: Subdued affect, answers questions. Vital Signs: Vital Signs: Last Vital Signs Temp 97.6 F 12/04/24 07:48 Pulse 113 H 12/04/24 07:48 Resp 15 12/03/24 19:54 BP 134/86 12/04/24 07:48 Pulse Ox 99 12/04/24 07:48 O2 Del Method Room Air 12/04/24 07:48 BMI result Body Mass Index 36.6 Objective Data Active Medications Acetaminophen (Acetaminophen 325 Mg Tablet) 650 mg PO Q6H PRN PRN Reason: Headache/Pain, Scale 1-10 Last Admin: 12/04/24 05:37 Dose: 650 mg Documented By: CASSI Al Hydroxide/Mg Hydroxide (Magnesium Hydrox/Alum Hydrox 30 Ml Oral.Susp) 30 ml PO Q6H PRN PRN Reason: Heartburn/Nausea Last Admin: 11/21/24 01:55 Dose: 30 ml Documented By: CRISTIAN Benzocaine (Throat Lozenge, Medicated Lozenge) 1 lozenge MUCOUS MEM Q2H PRN PRN Reason: Sore Throat Last Admin: 12/03/24 14:24 Dose: 1 lozenge Documented By: JACEY Bupropion HCl (Bupropion Hcl Xl 300 Mg Tab.Er.24h) 300 mg PO DAILY [facility] On Hold: 11/21/24 09:50 Last Admin: 11/21/24 09:03 Dose: 300 mg Documented By: PAYTON Capsaicin (Capsaicin 0.025% Cream 60 Gm Tube) 1 appl TOPICAL TID PRN; Protocol PRN Reason: leg pain Last Admin: 12/01/24 09:51 Dose: 1 appl Documented By: KALEY Clonidine HCl (Clonidine Hcl 0.1 Mg Tablet) 0.1 mg PO Q4H PRN; Protocol PRN Reason: moderate anxiety Last Admin: 12/01/24 17:12 Dose: 0.1 mg Documented By: KALEY Clozapine (Clozapine 100 Mg Tablet) 400 mg PO BEDTIME [facility] Last Admin: 12/03/24 20:59 Dose: 400 mg Documented By: CASSI Diazepam (Diazepam 5 Mg Tablet) 10 mg PO TID [facility] Last Admin: 12/03/24 21:00 Dose: 10 mg Documented By: CASSI Diphenhydramine HCl (Diphenhydramine Hcl 25 Mg Capsule) 25 mg PO TID [facility] Last Admin: 12/03/24 20:34 Dose: 25 mg Documented By: CASSI Divalproex Sodium (Divalproex Sodium Er 500 Mg Tab.Er.24h) 3,000 mg PO BEDTIME [facility] Last Admin: 12/03/24 20:25 Dose: 3,000 mg Documented By: CASSI Docusate Sodium (Docusate Sodium 100 Mg Capsule) 100 mg PO BID [facility] Last Admin: 12/03/24 20:27 Dose: 100 mg Documented By: CASSI Fenofibrate (Fenofibrate 160 Mg Tablet) 160 mg PO DAILY [facility] Last Admin: 12/03/24 08:49 Dose: 160 mg Documented By: JACEY Fluticasone Propionate (Fluticasone Propionate Nasal 16 Gm [place]) 1 spray NOSTRIL-B BEDTIME [facility] Last Admin: 12/03/24 20:36 Dose: Not Given Documented By: CASSI Non-Admin Reason: Patient Refused Fluticasone Propionate (Fluticasone Propionate Nasal 16 Gm [place]) 1 spray NOSTRIL-B DAILY PRN PRN Reason: Nasal allergy Last Admin: 11/24/24 06:25 Dose: 1 spray Documented By: MATT Glycopyrrolate (Glycopyrrolate 1 Mg Tablet) 1 mg PO TID [facility] Last Admin: 12/03/24 20:27 Dose: 1 mg Documented By: CASSI Haloperidol (Haloperidol 5 Mg Tablet) 5 mg PO TID [facility] Last Admin: 12/03/24 21:00 Dose: 5 mg Documented By: CASSI Ibuprofen (Ibuprofen 400 Mg Tablet) 400 mg PO Q6H PRN PRN Reason: Pain, Moderate(Pain Scale 4-6) Last Admin: 12/04/24 06:19 Dose: 400 mg Documented By: CASSI Lactulose (Lactulose 20 Gm/30 Ml Solution) 20 gm PO BID [facility] Last Admin: 12/03/24 20:36 Dose: Not Given Documented By: CASSI Non-Admin Reason: Patient Refused Lorazepam (Lorazepam 1 Mg Tablet) 1 mg PO Q8H PRN PRN Reason: Anxiety Last Admin: 12/04/24 05:37 Dose: 1 mg Documented By: CASSI Magnesium Hydroxide (Milk Of Magnesia 30 Ml Oral.Susp) 30 ml PO DAILY PRN PRN Reason: Constipation Last Admin: 11/28/24 14:32 Dose: 30 ml Documented By: ANGÉLICA Nicotine (Nicotine 21 Mg Patch.Td24) 21 mg TRANSDERMA DAILY PRN PRN Reason: smoking cessation Last Admin: 11/25/24 08:46 Dose: 21 mg Documented By: KALEY Nicotine Polacrilex (Nicotine Polacrilex 2 Mg Gum) 4 mg BUCCAL Q2H PRN PRN Reason: Nicotine Cravings Last Admin: 12/04/24 05:43 Dose: 4 mg Documented By: CASSI Ondansetron HCl (Ondansetron Odt 4 Mg Tab.Rapdis) 4 mg TRANSLINGU Q6H PRN PRN Reason: Nausea and Vomiting Last Admin: 11/28/24 16:14 Dose: 4 mg Documented By: ANGÉLICA Polyethylene Glycol (Polyethylene Glycol 3350 17 Gm Powd.Pack) 17 gm PO DAILY [facility] Last Admin: 12/03/24 08:52 Dose: Not Given Documented By: JACEY Non-Admin Reason: Patient Condition Contraindication Polyethylene Glycol (Polyethylene Glycol 3350 17 Gm Powd.Pack) 17 gm PO DAILY PRN PRN Reason: Constipation Last Admin: 11/28/24 16:16 Dose: 17 gm Documented By: ANGÉLICA Risperidone (Risperidone 2 Mg Tablet) 4 mg PO BEDTIME [facility] Last Admin: 12/03/24 20:59 Dose: 4 mg Documented By: CASSI Risperidone (Risperidone 1 Mg Tablet) 1 mg PO DAILY [facility] Last Admin: 12/03/24 08:50 Dose: 1 mg Documented By: JACEY Tamoxifen Citrate (Tamoxifen Citrate 10 Mg Tablet) 80 mg PO DAILY [facility] On Hold: 11/27/24 10:43 Last Admin: 11/27/24 21:43 Dose: Not Given Documented By: MATT Non-Admin Reason: previous shift Trazodone HCl (Trazodone Hcl 50 Mg Tablet) 50 mg PO BEDTIME MRX1 PRN PRN Reason: Insomnia Last Admin: 12/02/24 20:49 Dose: 50 mg Documented By: CASSI Labs 11/28/24 10:37 Assessment and Plan (1) Bilateral edema of lower extremity: Status: Acute Plan 34-year-old male admitted to [facility] for treatment of schizoaffective disorder, bipolar type with jacob. Patient is seen today for edema bilateral lower extremities. Schizoaffective disorder, bipolar type/autism spectrum disorder Treatment per psychiatry team Bilateral lower extremity edema Appears euvolemic on exam, encouraged leg elevation. L great toenail fungus We will need outpatient follow up with Podiatry for nail removal Class 3 obesity BMI 36.2 Weight loss encouraged Hypertriglyceridemia/hyperlipidemia Patient started on fenofibrate on November 17 Triglycerides down to 150. LDL cholesterol 124 Encouraged weight loss, encourage healthy food choices. Excessive drooling Seen by speech, swallow function is not a factor in saliva management, and no loss of motor function noted. Continue glycopyrrolate Thank you for allowing me to participate in the care of this patient. We will follow as needed, please notify medical provider with any concerns. Quality Stroke Does the patient have a stroke diagnosis?: No VTE Prior VTE?: No VTE Risk Level:: Medical - low VTE Device Contraindication: Treatment Not Indicated VTE Drug Contraindication: Treatment Not Indicated
[2024-12-04 08:54] LABS: Ammonia 51 umol/L (13-55)
[2024-12-04 20:42] VITALS: BP 129/73; PULSE 121; RESP 18; TEMP 36.4; O2SAT 96
--- NOTE | 2024-12-04 22:09 | HO.PSYCHPN ---
Subjective Subjective Date of Service: 12/04/24 Reason For Visit: Depressive D/O Schizoaffective Interim History: Met with patient; discussed with team; reviewed chart Patient is doing better; less manic, less intrusive and resting more. Still making grandiose delusional statements such as he is running for president with Roya Jolly, but certainly symptoms are improving. He says he is on too much medication and sign writer letterer or painter agrees to review Mental Status Exam Mental Status Exam Narrative: Pt is alert and oriented; behavior is more hypomanic, still hyperverbal but not as intense; only mildly intrusive with peers and easily redirectable; patient is not in distress; dressed in casual attire, unkempt; bilateral hand tremor; acceptable hygiene; mood is described as good and affect less expansive; eye contact appropriate; Speech verbose but not pressured and not really rambling; intermittent psychomotor agitation present; thought process can be goal oriented, but also tangential; Thought content remains with grandiose delusions; denies any SI/HI. Denies AVH Patients insight and judgment impaired Diagnostics Vital Signs (24Hr): Vital Signs - 24 hr 12/04/24 07:48 12/04/24 20:42 Temperature 97.6 F 97.5 F Pulse Rate 113 H 121 H Respiratory Rate 18 Blood Pressure 134/86 129/73 Pulse Oximetry 99 96 Oxygen Delivery Method Room Air Room Air BMI result Body Mass Index 36.6 Labs 11/28/24 10:37 Labs: Laboratory Results - last 48 hr 12/04/24 08:26 Ammonia 51 Medications Medications Current Medications Acetaminophen (Acetaminophen 325 Mg Tablet) 650 mg PO Q6H PRN PRN Reason: Headache/Pain, Scale 1-10 Last Admin: 12/04/24 05:37 Dose: 650 mg Al Hydroxide/Mg Hydroxide (Magnesium Hydrox/Alum Hydrox 30 Ml Oral.Susp) 30 ml PO Q6H PRN PRN Reason: Heartburn/Nausea Last Admin: 11/21/24 01:55 Dose: 30 ml Benzocaine (Throat Lozenge, Medicated Lozenge) 1 lozenge MUCOUS MEM Q2H PRN PRN Reason: Sore Throat Last Admin: 12/03/24 14:24 Dose: 1 lozenge Bupropion HCl (Bupropion Hcl Xl 300 Mg Tab.Er.24h) 300 mg PO DAILY [facility] On Hold: 11/21/24 09:50 Last Admin: 11/21/24 09:03 Dose: 300 mg Capsaicin (Capsaicin 0.025% Cream 60 Gm Tube) 1 appl TOPICAL TID PRN; Protocol PRN Reason: leg pain Last Admin: 12/04/24 21:01 Dose: 1 appl Clonidine HCl (Clonidine Hcl 0.1 Mg Tablet) 0.1 mg PO Q4H PRN; Protocol PRN Reason: moderate anxiety Last Admin: 12/01/24 17:12 Dose: 0.1 mg Clozapine (Clozapine 100 Mg Tablet) 400 mg PO BEDTIME [facility] Last Admin: 12/03/24 20:59 Dose: 400 mg Diazepam (Diazepam 5 Mg Tablet) 10 mg PO TID [facility] Last Admin: 12/04/24 15:12 Dose: 10 mg Diphenhydramine HCl (Diphenhydramine Hcl 25 Mg Capsule) 25 mg PO TID [facility] Last Admin: 12/04/24 15:12 Dose: 25 mg Divalproex Sodium (Divalproex Sodium Er 500 Mg Tab.Er.24h) 3,000 mg PO BEDTIME [facility] Last Admin: 12/03/24 20:25 Dose: 3,000 mg Docusate Sodium (Docusate Sodium 100 Mg Capsule) 100 mg PO BID [facility] Last Admin: 12/04/24 10:07 Dose: Not Given Fenofibrate (Fenofibrate 160 Mg Tablet) 160 mg PO DAILY [facility] Last Admin: 12/04/24 08:40 Dose: 160 mg Fluticasone Propionate (Fluticasone Propionate Nasal 16 Gm [place]) 1 spray NOSTRIL-B BEDTIME [facility] Last Admin: 12/03/24 20:36 Dose: Not Given Fluticasone Propionate (Fluticasone Propionate Nasal 16 Gm [place]) 1 spray NOSTRIL-B DAILY PRN PRN Reason: Nasal allergy Last Admin: 11/24/24 06:25 Dose: 1 spray Glycopyrrolate (Glycopyrrolate 1 Mg Tablet) 1 mg PO TID [facility] Last Admin: 12/04/24 15:12 Dose: 1 mg Haloperidol (Haloperidol 5 Mg Tablet) 5 mg PO TID [facility] Last Admin: 12/04/24 15:12 Dose: 5 mg Ibuprofen (Ibuprofen 400 Mg Tablet) 400 mg PO Q6H PRN PRN Reason: Pain, Moderate(Pain Scale 4-6) Last Admin: 12/04/24 06:19 Dose: 400 mg Lactulose (Lactulose 20 Gm/30 Ml Solution) 20 gm PO BID [facility] Last Admin: 12/04/24 08:40 Dose: 20 gm Lorazepam (Lorazepam 1 Mg Tablet) 1 mg PO Q8H PRN PRN Reason: Anxiety Last Admin: 12/04/24 21:02 Dose: 1 mg Magnesium Hydroxide (Milk Of Magnesia 30 Ml Oral.Susp) 30 ml PO DAILY PRN PRN Reason: Constipation Last Admin: 11/28/24 14:32 Dose: 30 ml Nicotine (Nicotine 21 Mg Patch.Td24) 21 mg TRANSDERMA DAILY PRN PRN Reason: smoking cessation Last Admin: 11/25/24 08:46 Dose: 21 mg Nicotine Polacrilex (Nicotine Polacrilex 2 Mg Gum) 4 mg BUCCAL Q2H PRN PRN Reason: Nicotine Cravings Last Admin: 12/04/24 05:43 Dose: 4 mg Ondansetron HCl (Ondansetron Odt 4 Mg Tab.Rapdis) 4 mg TRANSLINGU Q6H PRN PRN Reason: Nausea and Vomiting Last Admin: 11/28/24 16:14 Dose: 4 mg Polyethylene Glycol (Polyethylene Glycol 3350 17 Gm Powd.Pack) 17 gm PO DAILY [facility] On Hold: 12/04/24 10:12 Last Admin: 12/04/24 10:07 Dose: Not Given Polyethylene Glycol (Polyethylene Glycol 3350 17 Gm Powd.Pack) 17 gm PO DAILY PRN PRN Reason: Constipation Last Admin: 11/28/24 16:16 Dose: 17 gm Risperidone (Risperidone 2 Mg Tablet) 4 mg PO BEDTIME [facility] Last Admin: 12/03/24 20:59 Dose: 4 mg Risperidone (Risperidone 1 Mg Tablet) 1 mg PO DAILY [facility] Last Admin: 12/04/24 08:40 Dose: 1 mg Trazodone HCl (Trazodone Hcl 50 Mg Tablet) 50 mg PO BEDTIME MRX1 PRN PRN Reason: Insomnia Last Admin: 12/02/24 20:49 Dose: 50 mg Allergies Allergies Allergy/AdvReac Type Severity Reaction Status Date / Time benztropine (From COGENT[facility]) Allergy Unknown UNKNOWN Verified 11/16/24 15:51 propranolol (From [facility]DERAL [place]) Allergy Unknown UNKNOWN Verified 11/16/24 15:51 chaste tree Allergy Unknown Verified 11/16/24 15:51 lithium Allergy Unknown Verified 11/16/24 15:51 Assessment & Plan Assessment & Plan (1) Schizoaffective disorder, bipolar type: Status: Acute Code(s): F25.0 - Schizoaffective disorder, bipolar type (2) Bilateral edema of lower extremity: Status: Acute Code(s): R60.0 - Localized edema (3) Autism spectrum disorder: Status: Acute Code(s): F84.0 - Autistic disorder (4) Cellulitis: Status: Acute Code(s): L03.90 - Cellulitis, unspecified (5) Class 3 obesity: Status: Acute Code(s): E66.813 - Obesity, class 3 Plan Patient is a 34-year-old male with history of schizoaffective disorder bipolar type, Autism Spectrum Disorder, who lives in a retirement, on a community [place] who presents for depression. Patient reports that every 7 weeks (and every 4 months) medications don't work...and I feel depressed.... He says the the depression last anywhere from 2 to 12 days.. And then resolves on it's own without medication changes. Patient reports that he had suicidal ideation a few days ago, no plan but does not now. Patient says sometimes he hears sounds or voices that others do not hear, sometimes laughing noise but not very often and usually just during sleep. Discussed medication regimen and patient said that recently his Depakote was increased because he was having mood swings but it was difficult for him to give details. Discussed medication options and patient agrees to increase Wellbutrin to 450 mg. Formulation/clinical reasoning: Patient reports that episodically he still gets bouts of depression that can last for longer than a week however this seemed to resolve on their own. He is not sure what triggers them. Patient says he is already feeling better now that he is on the unit because of the friendships and interactions he has made since coming to the unit; patient signed a 3 day notice. Discussed medication options and patient agrees to increase Wellbutrin to 450 mg. Dining Chair Seat Cushion Trimmer wonders if perhaps patient can remain at Wellbutrin 300 mg and just take the extra 150 mg if he starts to feel depressed, sort of as an episodic p.r.n. -patient currently on 2 antipsychotics, including Clozaril and Risperdal; -some TD and pill rolling b/l hand tremor observed; wonder if Risperdal dose could be lowered; consider Titaezza Of note patient had severely high Triacylglycerides of 898. It appears to have been taken while patient fasting however patient is not sure. TAG this high puts patient at risk for pancreatitis. Will redraw labs tomorrow morning to ensure fasting however for now will treat as if this is an accurate lab Hospital course: 11/18: Continue current management and treatment plan. 11/19: Increase Depakote to 500 mg in AM and continue 1,000 mg HS. 11/20: continue current management and treatment plan. 11/21 Patient has become manic over the past several days. Additional Depakote dose was added but patient remains manic, grandiose, labile and intrusive. 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 Patient at 1 point broke down crying about the of his parents, saying that his mother was murdered but then saying she had a brain bleed.. Patient saying that he is from [place] and is going to go back and live his life and [place]... Initially demanding to be discharged today but was able to be redirected. Patient agrees to increased medications including adding Zyprexa -will hold Wellbutrin; seems likely that increasing Wellbutrin was what triggered manic episode -Increasing bedtime Depakote to 1250 mg -patient hardly slept last night and added Zyprexa 10 mg b.i.d.; plan is to discontinue once jacob subsides -reviewed labs and repeat cholesterol shows highly elevated TAG>500 though not as high as the day before 11/22 Patient did sleep some last night with added Zyprexa. Still manic but a little less intense and though still with some grandiose ideations, much less so. Patient still intrusive to others but redirectable. Patient did agree that he was acting manic yesterday but says he is fine now and wants to discharge. He persisted in demanding for discharge today and expressed frustration when told this is not possible but remained in behavioral control. -Great right toe with cellulitis; started on Keflex -Depakote labs ordered for Wednesday *patient is not stable to return to retirement at this time. Will try to get him to retract his 3 day notice but will otherwise file for civil commitment; that said hopefully will not need to go to court and manic episode will resolve 11/23/24: Patient slept for 2 hours, was medication compliant. Denies side effect but observed have some hand tremors. Restless, racing thoughts, intrusive, poor boundaries, need multiple redirections most of the time to respect personal space. He is over friendly, bright, manic but appeared to be less manic compared to yesterday. Can be perseverative on discharge, redirectable and need to remind that he is not leaving today a couple of times. He retracted 3 day notice. He seems to be forgetful. To PRNs with mild to moderate effects. He works on puzzle, and cleaning up his room. He has an reasonable planning for the future, appeared to be grandiose no aggressive behavior, can be irritable at times when things not the way he requested. Continue to monitor for sleeping pattern. 11/24/24: Slept slightly improved compared to the night before, he was able to slept for 4 hours. Was medication compliant. Mood is I am happy. I am calm and relaxed . Reports foot pain, nursing have patient to put lotion on, encouraged to elevated legs when he resting as left food appear to be slightly swollen. He said he would like to go back to his retirement. He also asked if he can call Carla and Max to apologize to them. Read direct patient not calling so many times that may annoying other persons. He admitted that he need to give them a break . Observe want time he was on the phone, appropriate. He is slightly better compared to yesterday, able to sit still, listen to advice/redirection. Even though he has delusional, and grandiose thoughts. Thinking he see a snake in his toilet, seeing his brother coming to see him. Per nursing he had unwitnessed fall when trying to put himself sitting down on the chair but missed it. Slightly better in term of manic behaviors, redirectable and less demanding. Redirected for personal space. Accepted it without any problems. 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 With much effort, Pt remains able to be redirected; examined great rt toe which remains with clear signs of cellulites -Start Ziprasidone -obtained EKG and qtc WNL -Depakote level with much room so will switch depakote to ER so can make at bedtime to help w/ sleep and will increase dose (Depakote IR 1750mg ~ Dep ER 2000) 11/26 Patient remains manic, intrusive, grandiose, tangential. Patient is intrusive to the point where some peers are getting very angry and some feeling provoked. -So far unable to break this manic episode; so far Zyprexa and Geodon have not affected patient and patient is in danger of unintentionally inciting peer aggression. -Thorazine 100 mg did not help either; will try Thorazine 200 mg t.i.d. combined with diazepam 15 mg t.i.d. (10mg did nothing) -if Thorazine does not help, will consider Haldol; also will soon get Depakote level and maybe able to increase other 11/27 Patient remains manic, grandiose, very intrusive with peers and staff, going into patient's rooms, walking up in into rejection himself, getting very close to people making people both angry and scared. Difficult decisions regarding treatment. Discussed case with Dr. Vázquez who agrees with plan For now, will discontinue Thorazine and Valium as sign writer letterer or painter is somewhat concern that all this sedating medication could add on a delirium to his already manic behaviors. Instead, will try Trileptal to help break manic episode; Trileptal has the least side effect risk profile of options so will give it a try (though not very robust evidence) -Considering Tegretol however this will lower the effective dose of both clozapine and Risperdal by 50% or more creating a confusing treatment regimen; also can affect the liver and bone marrow and patient is already on Depakote and Clozaril -also considering Haldol however patient is already on 2 antipsychotics -also considering Tamoxifen used off-label however increases thrombo embolism risk and can raise the effective doses of clozapine and Risperdal ECT remains the gold standard to treat refractory jacob however patient has a guardian and [place] which would need to be amended 11/28 Patient angry, punching the wall, yelling aggressively, peers is getting scared; 1 peer felt threatened and confronted patient pushed him but both were able to be redirected. Made a threatening remark to staff i'm going to break you... Remains floridly manic, hyperverbal, intrusive... He did say yes to ECT however understands guardian needs to weigh in clinical reasoning: -patient's increasing aggression and agitation seems directly correlated with having had Thorazine and diazepam discontinued. Restarted it for the purpose of patient and milieu safety. However it later came to sign writer letterer or painter's attention that Thorazine is not 1 of the antipsychotics listed on his community [place]..? Options that are available are Abilify and Haldol. Dining Chair Seat Cushion Trimmer lowered Thorazine to 100 mg and allowed for 1 last for tonight, again for milieu and patient safety however will discontinue it and will have to see if the other options are helpful Discussed case with colleague Dr. Meza who continues to agree that using Tegretol would cause too much mixing up of med regimen and that best option is to help patient remain safe while Depakote gets a chance to become therapeutic. Depakote level today 108; will continue with Depakote ER 3000mg and get level tomorrow -talked with Patients guardian Breezy Granados who says he has no objection to patient getting ECT 11/29 Patient for the 1st time since manic episodes started, more subdued today and slept from much of the day. During periods when he was awake, remains manic, intrusive, grandiose and saying bizarre things such as I am hairy potters twin and I need to get back to [facility]. -hopefully this is the sign that patient's manic episode is starting to wane; will continue with Depakote ER 3000 mg and get another level tomorrow (The?therapeutic range for acute jacob is 50?125 mcg/mL) 11/30 Still manic -added Abilfy 10mg daily; would prefer to try Haldol (both on [place]) but since Qtc is elevated will try Abilify first...(as mentioned despite qtc elevation, risk of TdP remains very low and Haldol remains an option. 12/01/24: Patient continued to be manic, intrusive, irritable most of the day, making threats. Making grandiose and paranoid delusional statements I need to go back to [place] to protect Jet Goldy . I am . I am the new president of the country . Patient was naked in the savage asking to talk to high school social studies teacher this morning per staffing reports. Patient remains in the group room at the other hallway. Remain on kitchen restriction, limit access to the other end of the savage. Patient compliant with medications, see PRNs for anxiety and agitation, restless, hyperverbal, hyperactive, irritable, needs a lot redirection,incongruent with mood stating that he is happy and have no anxiety or depression. Poor insight and poor judgment. Denies that he has any order diagnosis or mental health issues except for anger disorder VPA level on 11/30/24: 117.9 (The?therapeutic range for acute jacob is 50?125 mcg/mL) 12/02/24: Patient slept for 9 hours last night. Compliant with meds, less irritable and more pleasant today. Continue to delusional and grandiose. He is calmer compare to yesterday. No naked episode. Discontinue Abilify, start Haldol 5mg TID with goal to control manic/psychotic, racing thoughts/behaviors. Some mild drooling which improving per nursing. Lactulose 20mg BID. (Ammnonia level 60H) Discontinue Abilfy. start Haldol 5mg TID. EKG done- no change compare to previous record. Slightly prolong QTc. 12/03/24: Patient slept for 8 hours, compliant with medications,, appeared to have tremors, and drooling which is not worsening. Patient appeared to be sedated this morning with mild irritable mood, sometimes he hearing from his room loudly, but spend more time in his room today. Slightly less intrusive. Continued to be delusional and grandiose. He has loose stool, Colace and MiraLax was held but continue offer lactulose. We will check ammonia level tomorrow. Observe by lateral lower extremity edema. Hospitalist consult placed. Regarding depakote level: The?therapeutic range for acute jacob is 50?125 mcg/mL, and most patients respond within this range?1https://dailymed.nlm.nih.gov/dailymed/drugInfo.cfm?cderf=[email or web address]?2https://pubmed.ncbi.nlm.nih.gov/68817008.? of note, regarding EKG with prolonged Qtc: The incidence of torsades de pointes (TdP) from antipsychotic-induced QTc prolongation is?very low, estimated at?0.01?0.1%?(1?10 per 10,000 exposures) in clinical practice?1https://pubmed.ncbi.nlm.nih.gov/86348397?2https://pubmed.ncbi.nlm.nih.gov/37857169. ?[And in the cases where someone did actually get TdP], the case fatality of TdP is also low, with?<10%?of TdP episodes resulting in cardiac , 12/04 Patient is doing better; less manic, less intrusive and resting more.? Still making grandiose delusional statements such as he is running for president with [employer], but certainly symptoms are improving.? He says he is on too much medication and sign writer letterer or painter agrees to review? -Lowered to Diazepam 5mg TID (down from 10mg) -dc Benadryl 25mg TID -has been refusing Lactulose; will recheck Ammonia; if elevated will start LCarnatine Plan: CV Q 15 minute checks On community [place] ORDER/guardianship Patient is not appropriate for groups or to be in kitchen 1. Jacob Added Haldol 5 mg t.i.d. Continue Depakote ER 3000 mg qhs -will get lab Continue Risperdal 1 mg a.m. and 4 mg q.h.s. Continue Clozaril 400 mg q.h.s.; Level: 403 and Norclozaril 137. DC Thorazine 200mg TID DC Diazpam 10mg TID; will taper and dc once jacob subsides dc Trileptal DC Ziprasidone no effect Dc zyprexa; does not seem to do much HOLD Wellbutrin XL (once jacob resolved likely re-titrate to Wellbutrin 300mg (likely increasing to 450mg triggered manic episode) STARTed Fenobibrate 160mg daily for severely elevated Triacylglycerides of 898 (pt has normal renal function) Continue other home medications -consider Ingrezza -adverse reaction to [place] (per patient) -consider Tegretol? 2. Great right toe cellulitis Increased to Keflex 500 mg qid for 7 days (discussed increased dose with hospitalist MARIA T) -examined 11/28 and cellulitis is resolving 3. TAG 898 (appears to be fasting)/Cholesterol 319 re-ordered Lipid panel: Trilgyciride 898 down to 581 on 11/18/24. Cholesterol 319 down to 317. AIC 5.5 WNL. Started Fenobibrate 160mg daily (pt has normal renal function) Change diet to Low Fat diet will consider Statin Ordered TSH (lft's WNL): 0.81 WNL Bilateral lower extremity edema Appears euvolemic on exam, encouraged leg elevation. L great toenail fungus We will need outpatient follow up with Podiatry for nail removal Class 3 obesity BMI 36.2 Weight loss encouraged Hypertriglyceridemia/hyperlipidemia Patient started on fenofibrate on November 17 Triglycerides down to 150. LDL cholesterol 124 Encouraged weight loss, encourage healthy food choices. Excessive drooling Seen by speech, swallow function is not a factor in saliva management, and no loss of motor function noted. Continue glycopyrrolate Patient educated on: medication risk/benefits and therapeutic strategies Informed Consent: further education needed Reason for continued inpatient stay Substantial Risk for: med/psych decompensation Time Spent With Patient Time: Total time managing care of this patient today ____ minutes.
[2024-12-05 11:54] VITALS: BP 140/78
--- NOTE | 2024-12-05 17:49 | P.PNPSI_ITS ---
Subjective Subjective Date of Service: 12/05/24 Reason For Visit: Depressive D/O Schizoaffective Interim History: Met with patient; discussed with team Same presentation, hypomanic, making grandiose statements but overall much more redirectable and much more able to be calm. Mental Status Exam Mental Status Exam Narrative: Pt is alert and oriented; behavior is more hypomanic, still hyperverbal but not as intense; only mildly intrusive with peers and easily redirectable; patient is not in distress; dressed in casual attire, unkempt; bilateral hand tremor; acceptable hygiene; mood is described as good and affect less expansive; eye contact appropriate; Speech verbose but not pressured and not really rambling; intermittent psychomotor agitation present; thought process can be goal oriented, but also tangential; Thought content remains with grandiose delusions; denies any SI/HI. Denies AVH Patients insight and judgment impaired Diagnostics Vital Signs (24Hr): Vital Signs - 24 hr 12/04/24 20:42 12/05/24 11:54 Temperature 97.5 F Pulse Rate 121 H Respiratory Rate 18 Blood Pressure 129/73 140/78 H Pulse Oximetry 96 Oxygen Delivery Method Room Air BMI result Body Mass Index 36.6 Labs 11/28/24 10:37 Labs: Laboratory Results - last 48 hr 12/04/24 08:26 Ammonia 51 Medications Medications Current Medications Acetaminophen (Acetaminophen 325 Mg Tablet) 650 mg PO Q6H PRN PRN Reason: Headache/Pain, Scale 1-10 Last Admin: 12/04/24 05:37 Dose: 650 mg Al Hydroxide/Mg Hydroxide (Magnesium Hydrox/Alum Hydrox 30 Ml Oral.Susp) 30 ml PO Q6H PRN PRN Reason: Heartburn/Nausea Last Admin: 11/21/24 01:55 Dose: 30 ml Benzocaine (Throat Lozenge, Medicated Lozenge) 1 lozenge MUCOUS MEM Q2H PRN PRN Reason: Sore Throat Last Admin: 12/03/24 14:24 Dose: 1 lozenge Bupropion HCl (Bupropion Hcl Xl 300 Mg Tab.Er.24h) 300 mg PO DAILY ST[facility] On Hold: 11/21/24 09:50 Last Admin: 11/21/24 09:03 Dose: 300 mg Capsaicin (Capsaicin 0.025% Cream 60 Gm Tube) 1 appl TOPICAL TID PRN; Protocol PRN Reason: leg pain Last Admin: 12/04/24 21:01 Dose: 1 appl Clonidine HCl (Clonidine Hcl 0.1 Mg Tablet) 0.1 mg PO Q4H PRN; Protocol PRN Reason: moderate anxiety Last Admin: 12/05/24 11:54 Dose: 0.1 mg Clozapine (Clozapine 100 Mg Tablet) 400 mg PO BEDTIME STEWART Last Admin: 12/04/24 22:14 Dose: 400 mg Diazepam (Diazepam 5 Mg Tablet) 5 mg PO TID ST[facility]ART Last Admin: 12/05/24 14:34 Dose: 5 mg Diphenhydramine HCl (Diphenhydramine Hcl 25 Mg Capsule) 25 mg PO TID [facility] On Hold: 12/04/24 22:11 Last Admin: 12/04/24 22:16 Dose: 25 mg Divalproex Sodium (Divalproex Sodium Er 500 Mg Tab.Er.24h) 3,000 mg PO BEDTIME STEWART Last Admin: 12/04/24 22:18 Dose: 3,000 mg Docusate Sodium (Docusate Sodium 100 Mg Capsule) 100 mg PO BID [facility] Last Admin: 12/05/24 07:34 Dose: Not Given Fenofibrate (Fenofibrate 160 Mg Tablet) 160 mg PO DAILY [facility] Last Admin: 12/05/24 07:33 Dose: 160 mg Fluticasone Propionate (Fluticasone Propionate Nasal 16 Gm [place]) 1 spray NOSTRIL-B BEDTIME [facility] Last Admin: 12/04/24 22:13 Dose: 1 spray Fluticasone Propionate (Fluticasone Propionate Nasal 16 Gm [place]) 1 spray NOSTRIL-B DAILY PRN PRN Reason: Nasal allergy Last Admin: 11/24/24 06:25 Dose: 1 spray Glycopyrrolate (Glycopyrrolate 1 Mg Tablet) 1 mg PO TID [facility] Last Admin: 12/05/24 14:34 Dose: 1 mg Haloperidol (Haloperidol 5 Mg Tablet) 5 mg PO TID [facility] Last Admin: 12/05/24 14:34 Dose: 5 mg Ibuprofen (Ibuprofen 400 Mg Tablet) 400 mg PO Q6H PRN PRN Reason: Pain, Moderate(Pain Scale 4-6) Last Admin: 12/05/24 07:39 Dose: 400 mg Lactulose (Lactulose 20 Gm/30 Ml Solution) 20 gm PO BID [facility] Last Admin: 12/05/24 07:33 Dose: 20 gm Lorazepam (Lorazepam 1 Mg Tablet) 1 mg PO Q8H PRN On Hold: 12/04/24 22:10 PRN Reason: Anxiety Last Admin: 12/04/24 21:02 Dose: 1 mg Magnesium Hydroxide (Milk Of Magnesia 30 Ml Oral.Susp) 30 ml PO DAILY PRN PRN Reason: Constipation Last Admin: 11/28/24 14:32 Dose: 30 ml Nicotine (Nicotine 21 Mg Patch.Td24) 21 mg TRANSDERMA DAILY PRN PRN Reason: smoking cessation Last Admin: 11/25/24 08:46 Dose: 21 mg Nicotine Polacrilex (Nicotine Polacrilex 2 Mg Gum) 4 mg BUCCAL Q2H PRN PRN Reason: Nicotine Cravings Last Admin: 12/04/24 05:43 Dose: 4 mg Ondansetron HCl (Ondansetron Odt 4 Mg Tab.Rapdis) 4 mg TRANSLINGU Q6H PRN PRN Reason: Nausea and Vomiting Last Admin: 11/28/24 16:14 Dose: 4 mg Polyethylene Glycol (Polyethylene Glycol 3350 17 Gm Powd.Pack) 17 gm PO DAILY STEWART On Hold: 12/04/24 10:12 Last Admin: 12/04/24 10:07 Dose: Not Given Polyethylene Glycol (Polyethylene Glycol 3350 17 Gm Powd.Pack) 17 gm PO DAILY PRN PRN Reason: Constipation Last Admin: 11/28/24 16:16 Dose: 17 gm Risperidone (Risperidone 2 Mg Tablet) 4 mg PO BEDTIME STEWART Last Admin: 12/04/24 22:14 Dose: 4 mg Risperidone (Risperidone 1 Mg Tablet) 1 mg PO DAILY STEWART Last Admin: 12/05/24 07:33 Dose: 1 mg Trazodone HCl (Trazodone Hcl 50 Mg Tablet) 50 mg PO BEDTIME MRX1 PRN PRN Reason: Insomnia Last Admin: 12/02/24 20:49 Dose: 50 mg Allergies Allergies Allergy/AdvReac Type Severity Reaction Status Date / Time benztropine (From COGENTIN) Allergy Unknown UNKNOWN Verified 11/16/24 15:51 propranolol (From INDERAL [place]) Allergy Unknown UNKNOWN Verified 11/16/24 15:51 chaste tree Allergy Unknown Verified 11/16/24 15:51 lithium Allergy Unknown Verified 11/16/24 15:51 Assessment & Plan Assessment & Plan (1) Schizoaffective disorder, bipolar type: Status: Acute Code(s): F25.0 - Schizoaffective disorder, bipolar type (2) Bilateral edema of lower extremity: Status: Acute Code(s): R60.0 - Localized edema (3) Autism spectrum disorder: Status: Acute Code(s): F84.0 - Autistic disorder (4) Cellulitis: Status: Acute Code(s): L03.90 - Cellulitis, unspecified (5) Class 3 obesity: Status: Acute Code(s): E66.813 - Obesity, class 3 Plan Patient is a 34-year-old male with history of schizoaffective disorder bipolar type, Autism Spectrum Disorder, who lives in a long term, on a [facility] Vela who presents for depression. Patient reports that every 7 weeks (and every 4 months) medications don't work...and I feel depressed.... He says the the depression last anywhere from 2 to 12 days.. And then resolves on it's own without medication changes. Patient reports that he had suicidal ideation a few days ago, no plan but does not now. Patient says sometimes he hears sounds or voices that others do not hear, sometimes laughing noise but not very often and usually just during sleep. Discussed medication regimen and patient said that recently his Depakote was increased because he was having mood swings but it was difficult for him to give details. Discussed medication options and patient agrees to increase Wellbutrin to 450 mg. Formulation/clinical reasoning: Patient reports that episodically he still gets bouts of depression that can last for longer than a week however this seemed to resolve on their own. He is not sure what triggers them. Patient says he is already feeling better now that he is on the unit because of the friendships and interactions he has made since coming to the unit; patient signed a 3 day notice. Discussed medication options and patient agrees to increase Wellbutrin to 450 mg. Inseminator wonders if perhaps patient can remain at Wellbutrin 300 mg and just take the extra 150 mg if he starts to feel depressed, sort of as an episodic p.r.n. -patient currently on 2 antipsychotics, including Clozaril and Risperdal; -some TD and pill rolling b/l hand tremor observed; wonder if Risperdal dose could be lowered; consider Ingrezza Of note patient had severely high Triacylglycerides of 898. It appears to have been taken while patient fasting however patient is not sure. TAG this high puts patient at risk for pancreatitis. Will redraw labs tomorrow morning to ensure fasting however for now will treat as if this is an accurate lab Hospital course: 11/18: Continue current management and treatment plan. 11/19: Increase Depakote to 500 mg in AM and continue 1,000 mg HS. 11/20: continue current management and treatment plan. 11/21 Patient has become manic over the past several days. Additional Depakote dose was added but patient remains manic, grandiose, labile and intrusive. 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 Patient at 1 point broke down crying about the of his parents, saying that his mother was murdered but then saying she had a brain bleed.. Patient saying that he is from [place] and is going to go back and live his life and [place]... Initially demanding to be discharged today but was able to be redirected. Patient agrees to increased medications including adding Zyprexa -will hold Wellbutrin; seems likely that increasing Wellbutrin was what triggered manic episode -Increasing bedtime Depakote to 1250 mg -patient hardly slept last night and added Zyprexa 10 mg b.i.d.; plan is to discontinue once jacob subsides -reviewed labs and repeat cholesterol shows highly elevated TAG>500 though not as high as the day before 11/22 Patient did sleep some last night with added Zyprexa. Still manic but a little less intense and though still with some grandiose ideations, much less so. Patient still intrusive to others but redirectable. Patient did agree that he was acting manic yesterday but says he is fine now and wants to discharge. He persisted in demanding for discharge today and expressed frustration when told this is not possible but remained in behavioral control. -Great right toe with cellulitis; started on Keflex -Depakote labs ordered for Wednesday *patient is not stable to return to long term at this time. Will try to get him to retract his 3 day notice but will otherwise file for civil commitment; that said hopefully will not need to go to court and manic episode will resolve 11/23/24: Patient slept for 2 hours, was medication compliant. Denies side effect but observed have some hand tremors. Restless, racing thoughts, intrusive, poor boundaries, need multiple redirections most of the time to respect personal space. He is over friendly, bright, manic but appeared to be less manic compared to yesterday. Can be perseverative on discharge, redirectable and need to remind that he is not leaving today a couple of times. He retracted 3 day notice. He seems to be forgetful. To PRNs with mild to moderate effects. He works on puzzle, and cleaning up his room. He has an reasonable planning for the future, appeared to be grandiose no aggressive behavior, can be irritable at times when things not the way he requested. Continue to monitor for sleeping pattern. 11/24/24: Slept slightly improved compared to the night before, he was able to slept for 4 hours. Was medication compliant. Mood is I am happy. I am calm and relaxed . Reports foot pain, nursing have patient to put lotion on, encouraged to elevated legs when he resting as left food appear to be slightly swollen. He said he would like to go back to his long term. He also asked if he can call Carla and Max to apologize to them. Read direct patient not calling so many times that may annoying other persons. He admitted that he need to give them a break . Observe want time he was on the phone, appropriate. He is slightly better compared to yesterday, able to sit still, listen to advice/redirection. Even though he has delusional, and grandiose thoughts. Thinking he see a snake in his toilet, seeing his brother coming to see him. Per nursing he had unwitnessed fall when trying to put himself sitting down on the chair but missed it. Slightly better in term of manic behaviors, redirectable and less demanding. Redirected for personal space. Accepted it without any problems. 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 With much effort, Pt remains able to be redirected; examined great rt toe which remains with clear signs of cellulites -Start Ziprasidone -obtained EKG and qtc WNL -Depakote level with much room so will switch depakote to ER so can make at bedtime to help w/ sleep and will increase dose (Depakote IR 1750mg ~ Dep ER 2000) 11/26 Patient remains manic, intrusive, grandiose, tangential. Patient is intrusive to the point where some peers are getting very angry and some feeling provoked. -So far unable to break this manic episode; so far Zyprexa and Geodon have not affected patient and patient is in danger of unintentionally inciting peer aggression. -Thorazine 100 mg did not help either; will try Thorazine 200 mg t.i.d. combined with diazepam 15 mg t.i.d. (10mg did nothing) -if Thorazine does not help, will consider Haldol; also will soon get Depakote level and maybe able to increase other 11/27 Patient remains manic, grandiose, very intrusive with peers and staff, going into patient's rooms, walking up in into rejection himself, getting very close to people making people both angry and scared. Difficult decisions regarding treatment. Discussed case with Dr. Vázquez who agrees with plan For now, will discontinue Thorazine and Valium as marketing underwriter is somewhat concern that all this sedating medication could add on a delirium to his already manic behaviors. Instead, will try Trileptal to help break manic episode; Trileptal has the least side effect risk profile of options so will give it a try (though not very robust evidence) -Considering Tegretol however this will lower the effective dose of both clozapine and Risperdal by 50% or more creating a confusing treatment regimen; also can affect the liver and bone marrow and patient is already on Depakote and Clozaril -also considering Haldol however patient is already on 2 antipsychotics -also considering Tamoxifen used off-label however increases thrombo embolism risk and can raise the effective doses of clozapine and Risperdal ECT remains the gold standard to treat refractory jacob however patient has a guardian and Vela which would need to be amended 11/28 Patient angry, punching the wall, yelling aggressively, peers is getting scared; 1 peer felt threatened and confronted patient pushed him but both were able to be redirected. Made a threatening remark to staff i'm going to break you... Remains floridly manic, hyperverbal, intrusive... He did say yes to ECT however understands guardian needs to weigh in clinical reasoning: -patient's increasing aggression and agitation seems directly correlated with having had Thorazine and diazepam discontinued. Restarted it for the purpose of patient and milieu safety. However it later came to marketing underwriter's attention that Thorazine is not 1 of the antipsychotics listed on his community Vela..? Options that are available are Abilify and Haldol. Inseminator lowered Thorazine to 100 mg and allowed for 1 last for tonight, again for milieu and patient safety however will discontinue it and will have to see if the other options are helpful Discussed case with colleague Dr. Meza who continues to agree that using Tegretol would cause too much mixing up of med regimen and that best option is to help patient remain safe while Depakote gets a chance to become therapeutic. Depakote level today 108; will continue with Depakote ER 3000mg and get level tomorrow -talked with Patients guardian Breezy Roberta who says he has no objection to patient getting ECT 11/29 Patient for the 1st time since manic episodes started, more subdued today and slept from much of the day. During periods when he was awake, remains manic, intrusive, grandiose and saying bizarre things such as I am hairy potters twin and I need to get back to [facility]. -hopefully this is the sign that patient's manic episode is starting to wane; will continue with Depakote ER 3000 mg and get another level tomorrow (The?therapeutic range for acute jacob is 50?125 mcg/mL) 11/30 Still manic -added Abilfy 10mg daily; would prefer to try Haldol (both on Vela) but since Qtc is elevated will try Abilify first...(as mentioned despite qtc elevation, risk of TdP remains very low and Haldol remains an option. 12/01/24: Patient continued to be manic, intrusive, irritable most of the day, making threats. Making grandiose and paranoid delusional statements I need to go back to [place] to protect Jet Goldy . I am . I am the new president of the country . Patient was naked in the savage asking to talk to health and social care teacher this morning per staffing reports. Patient remains in the group room at the other hallway. Remain on kitchen restriction, limit access to the other end of the savage. Patient compliant with medications, see PRNs for anxiety and agitation, restless, hyperverbal, hyperactive, irritable, needs a lot redirection,incongruent with mood stating that he is happy and have no anxiety or depression. Poor insight and poor judgment. Denies that he has any order diagnosis or mental health issues except for anger disorder VPA level on 11/30/24: 117.9 (The?therapeutic range for acute jacob is 50?125 mcg/mL) 12/02/24: Patient slept for 9 hours last night. Compliant with meds, less irritable and more pleasant today. Continue to delusional and grandiose. He is calmer compare to yesterday. No naked episode. Discontinue Abilify, start Haldol 5mg TID with goal to control manic/psychotic, racing thoughts/behaviors. Some mild drooling which improving per nursing. Lactulose 20mg BID. (Ammnonia level 60H) Discontinue Abilfy. start Haldol 5mg TID. EKG done- no change compare to previous record. Slightly prolong QTc. 12/03/24: Patient slept for 8 hours, compliant with medications,, appeared to have tremors, and drooling which is not worsening. Patient appeared to be sedated this morning with mild irritable mood, sometimes he hearing from his room loudly, but spend more time in his room today. Slightly less intrusive. Continued to be delusional and grandiose. He has loose stool, Colace and MiraLax was held but continue offer lactulose. We will check ammonia level tomorrow. Observe by lateral lower extremity edema. Hospitalist consult placed. Regarding depakote level: The?therapeutic range for acute jacob is 50?125 mcg/mL, and most patients respond within this range?1 https://dailymed.nlm.nih.gov/dailymed/drugInfo.cfm?cwqsi=1zi018hk-wgz7-0134-5vv8 -230q535mrgki ?2 https://pubmed.ncbi.nlm.nih.gov/84528899 .? of note, regarding EKG with prolonged Qtc: The incidence of torsades de pointes (TdP) from antipsychotic-induced QTc prolongation is?very low, estimated at?0.01?0.1%?(1?10 per 10,000 exposures) in clinical practice?1 https://pubmed.ncbi.nlm.nih.gov/67384378 ?2 https://pubmed.ncbi.nlm.nih.gov/59845631 . ?[And in the cases where someone did actually get TdP], the case fatality of TdP is also low, with?<10%?of TdP episodes resulting in cardiac , 12/04 Patient is doing better; less manic, less intrusive and resting more.? Still making grandiose delusional statements such as he is running for president with [employer], but certainly symptoms are improving.? He says he is on too much medication and marketing underwriter agrees to review? -Lowered to Diazepam 5mg TID (down from 10mg) -dc Benadryl 25mg TID -has been refusing Lactulose; will recheck Ammonia; if elevated will start LCarnatine 12/05 remains hypomanic and making grandiose statements; continue treatment plan; continues to refuse lactulose. Will get labs Plan: CV Q 15 minute checks On [facility] ORDER/guardianship Patient is not appropriate for groups or to be in kitchen 1. Jacob Added Haldol 5 mg t.i.d. Continue Depakote ER 3000 mg qhs -will get lab Continue Risperdal 1 mg a.m. and 4 mg q.h.s. Continue Clozaril 400 mg q.h.s.; Level: 403 and Norclozaril 137. DC Thorazine 200mg TID DC Diazpam 10mg TID; will taper and dc once jacob subsides dc Trileptal DC Ziprasidone no effect Dc zyprexa; does not seem to do much HOLD Wellbutrin XL (once jacob resolved likely re-titrate to Wellbutrin 300mg (likely increasing to 450mg triggered manic episode) STARTed Fenobibrate 160mg daily for severely elevated Triacylglycerides of 898 (pt has normal renal function) Continue other home medications -consider Ingrezza -adverse reaction to Gideon (per patient) -consider Tegretol? 2. Great right toe cellulitis Increased to Keflex 500 mg qid for 7 days (discussed increased dose with hospitalist MARIA T) -examined 11/28 and cellulitis is resolving 3. TAG 898 (appears to be fasting)/Cholesterol 319 re-ordered Lipid panel: Trilgyciride 898 down to 581 on 11/18/24. Cholesterol 319 down to 317. AIC 5.5 WNL. Started Fenobibrate 160mg daily (pt has normal renal function) Change diet to Low Fat diet will consider Statin Ordered TSH (lft's WNL): 0.81 WNL Bilateral lower extremity edema Appears euvolemic on exam, encouraged leg elevation. L great toenail fungus We will need outpatient follow up with Podiatry for nail removal Class 3 obesity BMI 36.2 Weight loss encouraged Hypertriglyceridemia/hyperlipidemia Patient started on fenofibrate on November 17 Triglycerides down to 150. LDL cholesterol 124 Encouraged weight loss, encourage healthy food choices. Excessive drooling Seen by speech, swallow function is not a factor in saliva management, and no loss of motor function noted. Continue glycopyrrolate Patient educated on: diagnosis Informed Consent: understands, does not understand and further education needed Reason for continued inpatient stay Substantial Risk for: inability to function Time Spent With Patient Time: Total time managing care of this patient today ____ minutes.
--- NOTE | 2024-12-06 | ECG_ITS ---
Test Reason : CK QT Blood Pressure : */* mmHG Vent. Rate : 108 BPM Atrial Rate : 108 BPM P-R Int : 126 ms QRS Dur : 86 ms QT Int : 352 ms P-R-T Axes : 67 16 89 degrees QTcB Int : 471 ms Sinus tachycardia Nonspecific T wave abnormality Abnormal ECG When compared with ECG of 02-Dec-2024 16:09, No significant change was found Referred By: Asif Valencia Electronically Signed By: CATHERINE PALOMARES
[2024-12-06 08:14] VITALS: BP 130/77; PULSE 113; RESP 20; TEMP 36.7; O2SAT 96
[2024-12-06 09:01] LABS: Ammonia 35 umol/L (13-55)
[2024-12-06 10:32] VITALS: BP 119/69; PULSE 92
--- NOTE | 2024-12-06 10:32 | HO.PSYCHPN ---
Subjective Subjective Date of Service: 12/06/24 Reason For Visit: Depressive D/O Schizoaffective Interim History: Met with patient; discussed with team Still manic/hypomanic; overall more easily redirected and less hyperactive but still can be loud, intrusive and he continues to make grandiose statements saying he is the boss, he owns different things, he was born in different countries....sometimes yelling loudly in frustration...none of which is baseline increase Haldol to total daily dose of 25mg (up from 15mg) Monitoring Qtc which is WNL Ammonia WNL; will lower Lactulose to 20mg daily (down from BID-has not always taken bedtime dose) Mental Status Exam Mental Status Exam Narrative: Pt is alert and oriented; behavior is manic/hypomanic, still hyperverbal but not as intense; still intrusive with peers but more easily redirectable; patient is not in distress; dressed in casual attire, unkempt; bilateral hand tremor; aggregate hygiene; mood is described as good and affect less expansive; eye contact appropriate; Speech verbose but not pressured and not really rambling; intermittent psychomotor agitation present; thought process can be goal oriented, but also tangential; Thought content remains with grandiose delusions; denies any SI/HI. Denies AVH Patients insight and judgment impaired Diagnostics Vital Signs (24Hr): Vital Signs - 24 hr 12/05/24 11:54 12/06/24 08:14 Temperature 98.0 F Pulse Rate 113 H Respiratory Rate 20 Blood Pressure 140/78 H 130/77 Pulse Oximetry 96 Oxygen Delivery Method Room Air BMI result Body Mass Index 36.6 Labs 11/28/24 10:37 Labs: Laboratory Results - last 48 hr 12/06/24 08:40 Ammonia 35 Medications Medications Current Medications Acetaminophen (Acetaminophen 325 Mg Tablet) 650 mg PO Q6H PRN PRN Reason: Headache/Pain, Scale 1-10 Last Admin: 12/04/24 05:37 Dose: 650 mg Al Hydroxide/Mg Hydroxide (Magnesium Hydrox/Alum Hydrox 30 Ml Oral.Susp) 30 ml PO Q6H PRN PRN Reason: Heartburn/Nausea Last Admin: 11/21/24 01:55 Dose: 30 ml Benzocaine (Throat Lozenge, Medicated Lozenge) 1 lozenge MUCOUS MEM Q2H PRN PRN Reason: Sore Throat Last Admin: 12/03/24 14:24 Dose: 1 lozenge Bupropion HCl (Bupropion Hcl Xl 300 Mg Tab.Er.24h) 300 mg PO DAILY STEWART On Hold: 11/21/24 09:50 Last Admin: 11/21/24 09:03 Dose: 300 mg Capsaicin (Capsaicin 0.025% Cream 60 Gm Tube) 1 appl TOPICAL TID PRN; Protocol PRN Reason: leg pain Last Admin: 12/04/24 21:01 Dose: 1 appl Clonidine HCl (Clonidine Hcl 0.1 Mg Tablet) 0.1 mg PO Q4H PRN; Protocol PRN Reason: moderate anxiety Last Admin: 12/05/24 11:54 Dose: 0.1 mg Clozapine (Clozapine 100 Mg Tablet) 400 mg PO BEDTIME STEWART Last Admin: 12/05/24 20:51 Dose: 400 mg Diazepam (Diazepam 5 Mg Tablet) 5 mg PO TID STEWART Last Admin: 12/06/24 08:20 Dose: 5 mg Diphenhydramine HCl (Diphenhydramine Hcl 25 Mg Capsule) 25 mg PO TID STEWART On Hold: 12/04/24 22:11 Last Admin: 12/04/24 22:16 Dose: 25 mg Divalproex Sodium (Divalproex Sodium Er 500 Mg Tab.Er.24h) 3,000 mg PO BEDTIME STEWART Last Admin: 12/05/24 20:51 Dose: 3,000 mg Docusate Sodium (Docusate Sodium 100 Mg Capsule) 100 mg PO BID REPLACED BY [facility] Last Admin: 12/06/24 08:21 Dose: 100 mg Fenofibrate (Fenofibrate 160 Mg Tablet) 160 mg PO DAILY STEWART Last Admin: 12/06/24 08:21 Dose: 160 mg Fluticasone Propionate (Fluticasone Propionate Nasal 16 Gm Merom) 1 spray NOSTRIL-B BEDTIME REPLACED BY [facility] Last Admin: 12/05/24 21:03 Dose: Not Given Fluticasone Propionate (Fluticasone Propionate Nasal 16 Gm Merom) 1 spray NOSTRIL-B DAILY PRN PRN Reason: Nasal allergy Last Admin: 11/24/24 06:25 Dose: 1 spray Glycopyrrolate (Glycopyrrolate 1 Mg Tablet) 1 mg PO TID REPLACED BY [facility] Last Admin: 12/06/24 08:31 Dose: 1 mg Haloperidol (Haloperidol 5 Mg Tablet) 5 mg PO TID STEWART Last Admin: 12/06/24 08:20 Dose: 5 mg Ibuprofen (Ibuprofen 400 Mg Tablet) 400 mg PO Q6H PRN PRN Reason: Pain, Moderate(Pain Scale 4-6) Last Admin: 12/05/24 07:39 Dose: 400 mg Lactulose (Lactulose 20 Gm/30 Ml Solution) 20 gm PO DAILY STEWART Lorazepam (Lorazepam 1 Mg Tablet) 1 mg PO Q8H PRN On Hold: 12/04/24 22:10 PRN Reason: Anxiety Last Admin: 12/04/24 21:02 Dose: 1 mg Magnesium Hydroxide (Milk Of Magnesia 30 Ml Oral.Susp) 30 ml PO DAILY PRN PRN Reason: Constipation Last Admin: 11/28/24 14:32 Dose: 30 ml Nicotine (Nicotine 21 Mg Patch.Td24) 21 mg TRANSDERMA DAILY PRN PRN Reason: smoking cessation Last Admin: 11/25/24 08:46 Dose: 21 mg Nicotine Polacrilex (Nicotine Polacrilex 2 Mg Gum) 4 mg BUCCAL Q2H PRN PRN Reason: Nicotine Cravings Last Admin: 12/04/24 05:43 Dose: 4 mg Ondansetron HCl (Ondansetron Odt 4 Mg Tab.Rapdis) 4 mg TRANSLINGU Q6H PRN PRN Reason: Nausea and Vomiting Last Admin: 11/28/24 16:14 Dose: 4 mg Polyethylene Glycol (Polyethylene Glycol 3350 17 Gm Powd.Pack) 17 gm PO DAILY STEWART On Hold: 12/04/24 10:12 Last Admin: 12/04/24 10:07 Dose: Not Given Polyethylene Glycol (Polyethylene Glycol 3350 17 Gm Powd.Pack) 17 gm PO DAILY PRN PRN Reason: Constipation Last Admin: 11/28/24 16:16 Dose: 17 gm Risperidone (Risperidone 2 Mg Tablet) 4 mg PO BEDTIME STEWART Last Admin: 12/05/24 20:52 Dose: 4 mg Risperidone (Risperidone 1 Mg Tablet) 1 mg PO DAILY STEWART Last Admin: 12/06/24 08:20 Dose: 1 mg Trazodone HCl (Trazodone Hcl 50 Mg Tablet) 50 mg PO BEDTIME MRX1 PRN PRN Reason: Insomnia Last Admin: 12/02/24 20:49 Dose: 50 mg Allergies Allergies Allergy/AdvReac Type Severity Reaction Status Date / Time benztropine (From COGENTIN) Allergy Unknown UNKNOWN Verified 11/16/24 15:51 propranolol (From INDERAL LA) Allergy Unknown UNKNOWN Verified 11/16/24 15:51 chaste tree Allergy Unknown Verified 11/16/24 15:51 lithium Allergy Unknown Verified 11/16/24 15:51 Assessment & Plan Assessment & Plan (1) Schizoaffective disorder, bipolar type: Status: Acute Code(s): F25.0 - Schizoaffective disorder, bipolar type (2) Bilateral edema of lower extremity: Status: Acute Code(s): R60.0 - Localized edema (3) Autism spectrum disorder: Status: Acute Code(s): F84.0 - Autistic disorder (4) Cellulitis: Status: Acute Code(s): L03.90 - Cellulitis, unspecified (5) Class 3 obesity: Status: Acute Code(s): E66.813 - Obesity, class 3 Plan Patient is a 34-year-old male with history of schizoaffective disorder bipolar type, Autism Spectrum Disorder, who lives in a senior care, on a [facility] who presents for depression. Patient reports that every 7 weeks (and every 4 months) medications don't work...and I feel depressed.... He says the the depression last anywhere from 2 to 12 days.. And then resolves on it's own without medication changes. Patient reports that he had suicidal ideation a few days ago, no plan but does not now. Patient says sometimes he hears sounds or voices that others do not hear, sometimes laughing noise but not very often and usually just during sleep. Discussed medication regimen and patient said that recently his Depakote was increased because he was having mood swings but it was difficult for him to give details. Discussed medication options and patient agrees to increase Wellbutrin to 450 mg. Formulation/clinical reasoning: Patient reports that episodically he still gets bouts of depression that can last for longer than a week however this seemed to resolve on their own. He is not sure what triggers them. Patient says he is already feeling better now that he is on the unit because of the friendships and interactions he has made since coming to the unit; patient signed a 3 day notice. Discussed medication options and patient agrees to increase Wellbutrin to 450 mg. Braze Operator wonders if perhaps patient can remain at Wellbutrin 300 mg and just take the extra 150 mg if he starts to feel depressed, sort of as an episodic p.r.n. -patient currently on 2 antipsychotics, including Clozaril and Risperdal; -some TD and pill rolling b/l hand tremor observed; wonder if Risperdal dose could be lowered; consider Aristeo Of note patient had severely high Triacylglycerides of 898. It appears to have been taken while patient fasting however patient is not sure. TAG this high puts patient at risk for pancreatitis. Will redraw labs tomorrow morning to ensure fasting however for now will treat as if this is an accurate lab Hospital course: 11/18: Continue current management and treatment plan. 11/19: Increase Depakote to 500 mg in AM and continue 1,000 mg HS. 11/20: continue current management and treatment plan. 11/21 Patient has become manic over the past several days. Additional Depakote dose was added but patient remains manic, grandiose, labile and intrusive. 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 Patient at 1 point broke down crying about the of his parents, saying that his mother was murdered but then saying she had a brain bleed.. Patient saying that he is from [place] and is going to go back and live his life and [place]... Initially demanding to be discharged today but was able to be redirected. Patient agrees to increased medications including adding Zyprexa -will hold Wellbutrin; seems likely that increasing Wellbutrin was what triggered manic episode -Increasing bedtime Depakote to 1250 mg -patient hardly slept last night and added Zyprexa 10 mg b.i.d.; plan is to discontinue once jacob subsides -reviewed labs and repeat cholesterol shows highly elevated TAG>500 though not as high as the day before 11/22 Patient did sleep some last night with added Zyprexa. Still manic but a little less intense and though still with some grandiose ideations, much less so. Patient still intrusive to others but redirectable. Patient did agree that he was acting manic yesterday but says he is fine now and wants to discharge. He persisted in demanding for discharge today and expressed frustration when told this is not possible but remained in behavioral control. -Great right toe with cellulitis; started on Keflex -Depakote labs ordered for Wednesday *patient is not stable to return to senior care at this time. Will try to get him to retract his 3 day notice but will otherwise file for civil commitment; that said hopefully will not need to go to court and manic episode will resolve 11/23/24: Patient slept for 2 hours, was medication compliant. Denies side effect but observed have some hand tremors. Restless, racing thoughts, intrusive, poor boundaries, need multiple redirections most of the time to respect personal space. He is over friendly, bright, manic but appeared to be less manic compared to yesterday. Can be perseverative on discharge, redirectable and need to remind that he is not leaving today a couple of times. He retracted 3 day notice. He seems to be forgetful. To PRNs with mild to moderate effects. He works on puzzle, and cleaning up his room. He has an reasonable planning for the future, appeared to be grandiose no aggressive behavior, can be irritable at times when things not the way he requested. Continue to monitor for sleeping pattern. 11/24/24: Slept slightly improved compared to the night before, he was able to slept for 4 hours. Was medication compliant. Mood is I am happy. I am calm and relaxed . Reports foot pain, nursing have patient to put lotion on, encouraged to elevated legs when he resting as left food appear to be slightly swollen. He said he would like to go back to his senior care. He also asked if he can call Carla and Max to apologize to them. Read direct patient not calling so many times that may annoying other persons. He admitted that he need to give them a break . Observe want time he was on the phone, appropriate. He is slightly better compared to yesterday, able to sit still, listen to advice/redirection. Even though he has delusional, and grandiose thoughts. Thinking he see a snake in his toilet, seeing his brother coming to see him. Per nursing he had unwitnessed fall when trying to put himself sitting down on the chair but missed it. Slightly better in term of manic behaviors, redirectable and less demanding. Redirected for personal space. Accepted it without any problems. 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 With much effort, Pt remains able to be redirected; examined great rt toe which remains with clear signs of cellulites -Start Ziprasidone -obtained EKG and qtc WNL -Depakote level with much room so will switch depakote to ER so can make at bedtime to help w/ sleep and will increase dose (Depakote IR 1750mg ~ Dep ER 2000) 11/26 Patient remains manic, intrusive, grandiose, tangential. Patient is intrusive to the point where some peers are getting very angry and some feeling provoked. -So far unable to break this manic episode; so far Zyprexa and Geodon have not affected patient and patient is in danger of unintentionally inciting peer aggression. -Thorazine 100 mg did not help either; will try Thorazine 200 mg t.i.d. combined with diazepam 15 mg t.i.d. (10mg did nothing) -if Thorazine does not help, will consider Haldol; also will soon get Depakote level and maybe able to increase other 11/27 Patient remains manic, grandiose, very intrusive with peers and staff, going into patient's rooms, walking up in into rejection himself, getting very close to people making people both angry and scared. Difficult decisions regarding treatment. Discussed case with Dr. Vázquez who agrees with plan For now, will discontinue Thorazine and Valium as movie writer is somewhat concern that all this sedating medication could add on a delirium to his already manic behaviors. Instead, will try Trileptal to help break manic episode; Trileptal has the least side effect risk profile of options so will give it a try (though not very robust evidence) -Considering Tegretol however this will lower the effective dose of both clozapine and Risperdal by 50% or more creating a confusing treatment regimen; also can affect the liver and bone marrow and patient is already on Depakote and Clozaril -also considering Haldol however patient is already on 2 antipsychotics -also considering Tamoxifen used off-label however increases thrombo embolism risk and can raise the effective doses of clozapine and Risperdal ECT remains the gold standard to treat refractory jacob however patient has a guardian and Vela which would need to be amended 11/28 Patient angry, punching the wall, yelling aggressively, peers is getting scared; 1 peer felt threatened and confronted patient pushed him but both were able to be redirected. Made a threatening remark to staff i'm going to break you... Remains floridly manic, hyperverbal, intrusive... He did say yes to ECT however understands guardian needs to weigh in clinical reasoning: -patient's increasing aggression and agitation seems directly correlated with having had Thorazine and diazepam discontinued. Restarted it for the purpose of patient and milieu safety. However it later came to movie writer's attention that Thorazine is not 1 of the antipsychotics listed on his community Vela..? Options that are available are Abilify and Haldol. Braze Operator lowered Thorazine to 100 mg and allowed for 1 last for tonight, again for milieu and patient safety however will discontinue it and will have to see if the other options are helpful Discussed case with colleague Dr. Meza who continues to agree that using Tegretol would cause too much mixing up of med regimen and that best option is to help patient remain safe while Depakote gets a chance to become therapeutic. Depakote level today 108; will continue with Depakote ER 3000mg and get level tomorrow -talked with Patients guardian Breezy Granados who says he has no objection to patient getting ECT 11/29 Patient for the 1st time since manic episodes started, more subdued today and slept from much of the day. During periods when he was awake, remains manic, intrusive, grandiose and saying bizarre things such as I am hairy potters twin and I need to get back to [facility]. -hopefully this is the sign that patient's manic episode is starting to wane; will continue with Depakote ER 3000 mg and get another level tomorrow (The?therapeutic range for acute jacob is 50?125 mcg/mL) 11/30 Still manic -added Abilfy 10mg daily; would prefer to try Haldol (both on Vela) but since Qtc is elevated will try Abilify first...(as mentioned despite qtc elevation, risk of TdP remains very low and Haldol remains an option. 12/01/24: Patient continued to be manic, intrusive, irritable most of the day, making threats. Making grandiose and paranoid delusional statements I need to go back to [place] to protect Jet Goldy . I am . I am the new president of the country . Patient was naked in the savage asking to talk to social science teacher this morning per staffing reports. Patient remains in the group room at the other hallway. Remain on kitchen restriction, limit access to the other end of the savage. Patient compliant with medications, see PRNs for anxiety and agitation, restless, hyperverbal, hyperactive, irritable, needs a lot redirection,incongruent with mood stating that he is happy and have no anxiety or depression. Poor insight and poor judgment. Denies that he has any order diagnosis or mental health issues except for anger disorder VPA level on 11/30/24: 117.9 (The?therapeutic range for acute jacob is 50?125 mcg/mL) 12/02/24: Patient slept for 9 hours last night. Compliant with meds, less irritable and more pleasant today. Continue to delusional and grandiose. He is calmer compare to yesterday. No naked episode. Discontinue Abilify, start Haldol 5mg TID with goal to control manic/psychotic, racing thoughts/behaviors. Some mild drooling which improving per nursing. Lactulose 20mg BID. (Ammnonia level 60H) Discontinue Abilfy. start Haldol 5mg TID. EKG done- no change compare to previous record. Slightly prolong QTc. 12/03/24: Patient slept for 8 hours, compliant with medications,, appeared to have tremors, and drooling which is not worsening. Patient appeared to be sedated this morning with mild irritable mood, sometimes he hearing from his room loudly, but spend more time in his room today. Slightly less intrusive. Continued to be delusional and grandiose. He has loose stool, Colace and MiraLax was held but continue offer lactulose. We will check ammonia level tomorrow. Observe by lateral lower extremity edema. Hospitalist consult placed. Regarding depakote level: The?therapeutic range for acute jacob is 50?125 mcg/mL, and most patients respond within this range?1https://dailymed.nlm.nih.gov/dailymed/drugInfo.cfm?cczgz=[email or web address]?2https://pubmed.ncbi.nlm.nih.gov/10826832.? of note, regarding EKG with prolonged Qtc: The incidence of torsades de pointes (TdP) from antipsychotic-induced QTc prolongation is?very low, estimated at?0.01?0.1%?(1?10 per 10,000 exposures) in clinical practice?1https://pubmed.ncbi.nlm.nih.gov/31125840?2https://pubmed.ncbi.nlm.nih.gov/45233423. ?[And in the cases where someone did actually get TdP], the case fatality of TdP is also low, with?<10%?of TdP episodes resulting in cardiac , 12/04 Patient is doing better; less manic, less intrusive and resting more.? Still making grandiose delusional statements such as he is running for president with [employer], but certainly symptoms are improving.? He says he is on too much medication and movie writer agrees to review? -Lowered to Diazepam 5mg TID (down from 10mg) -dc Benadryl 25mg TID -has been refusing Lactulose; will recheck Ammonia; if elevated will start LCarnatine 12/05 remains hypomanic and making grandiose statements; continue treatment plan; continues to refuse lactulose. Will get labs 12/06 Still manic/hypomanic; overall more easily redirected and less hyperactive but still can be loud, intrusive and he continues to make grandiose statements saying he is the boss, he owns different things, he was born in different countries....sometimes yelling loudly in frustration...none of which is baseline -movie writer tried reality testing however this frustrated patient who remains with impaired insight to his manic episode increase Haldol to total daily dose of 25mg (up from 15mg) Monitoring Qtc ( QTcB Int : 471 ms on 12/06) Ammonia WNL; will lower Lactulose to 20mg daily (down from BID-has not always taken bedtime dose) Plan: CV Q 15 minute checks On [facility] ORDER/guardianship Patient is not appropriate for groups or to be in kitchen 1. Jacob Increased Haldol to 10 mg b.i.d. and 5 mg in the afternoon; total daily dose of 25mg (up from 15mg) Continue Depakote ER 3000 mg qhs Continue Risperdal 1 mg a.m. and 4 mg q.h.s. Continue Clozaril 400 mg q.h.s.; Level: 403 and Norclozaril 137. DC Thorazine 200mg TID DC Diazpam 10mg TID; will taper and dc once jacob subsides dc Trileptal DC Ziprasidone no effect Dc zyprexa; does not seem to do much HOLD Wellbutrin XL (once jacob resolved likely re-titrate to Wellbutrin 300mg (likely increasing to 450mg triggered manic episode) STARTed Fenobibrate 160mg daily for severely elevated Triacylglycerides of 898 (pt has normal renal function) Continue other home medications -consider Ingrezza -adverse reaction to [place] (per patient) -consider Tegretol? 2. Great right toe cellulitis Increased to Keflex 500 mg qid for 7 days (discussed increased dose with hospitalist MARIA T) -examined 11/28 and cellulitis is resolving 3. TAG 898 (appears to be fasting)/Cholesterol 319 re-ordered Lipid panel: Trilgyciride 898 down to 581 on 11/18/24. Cholesterol 319 down to 317. AIC 5.5 WNL. Started Fenobibrate 160mg daily (pt has normal renal function) Change diet to Low Fat diet will consider Statin Ordered TSH (lft's WNL): 0.81 WNL Bilateral lower extremity edema Appears euvolemic on exam, encouraged leg elevation. L great toenail fungus We will need outpatient follow up with Podiatry for nail removal Class 3 obesity BMI 36.2 Weight loss encouraged Hypertriglyceridemia/hyperlipidemia Patient started on fenofibrate on November 17 Triglycerides down to 150. LDL cholesterol 124 Encouraged weight loss, encourage healthy food choices. Excessive drooling Seen by speech, swallow function is not a factor in saliva management, and no loss of motor function noted. Continue glycopyrrolate Patient educated on: diagnosis and medication risk/benefits Informed Consent: understands, does not understand and further education needed Reason for continued inpatient stay Substantial Risk for: inability to function Time Spent With Patient Time: Total time managing care of this patient today ____ minutes.
[2024-12-06 20:00] VITALS: BP 135/64; PULSE 110; RESP 16; TEMP 36.4; O2SAT 97
[2024-12-07 07:00] VITALS: BMI 35.0
[2024-12-07 08:10] LABS: Neut%MD 52.3 %; WBCANC 6.1 X10*3/uL
--- NOTE | 2024-12-07 08:55 | P.PNPSI_ITS ---
Subjective Subjective Date of Service: 12/07/24 Reason For Visit: Depressive D/O Schizoaffective Interim History: Met with patient; discussed with team Patient remains manic/hypomanic; will continue current Haldol dose but may increase soon Mental Status Exam Mental Status Exam Narrative: Pt is alert and oriented; behavior is manic/hypomanic, still hyperverbal but not as intense; still intrusive with peers but more easily redirectable; patient is not in distress; dressed in casual attire, unkempt; bilateral hand tremor; aggregate hygiene; mood is described as good and affect less expansive; eye contact appropriate; Speech verbose but not pressured and not really rambling; intermittent psychomotor agitation present; thought process can be goal oriented, but also tangential; Thought content remains with grandiose delusions; denies any SI/HI. Denies AVH Patients insight and judgment impaired Diagnostics Vital Signs (24Hr): Vital Signs - 24 hr 12/06/24 10:32 12/06/24 20:00 Temperature 97.5 F Pulse Rate 92 110 H Respiratory Rate 16 Blood Pressure 119/69 135/64 Pulse Oximetry 97 Oxygen Delivery Method Room Air BMI result Body Mass Index 36.6 Labs 11/28/24 10:37 Labs: Laboratory Results - last 48 hr 12/06/24 12/07/24 08:40 07:56 Absolute Neuts (auto) 3.2 Ammonia 35 Medications Medications Current Medications Acetaminophen (Acetaminophen 325 Mg Tablet) 650 mg PO Q6H PRN PRN Reason: Headache/Pain, Scale 1-10 Last Admin: 12/04/24 05:37 Dose: 650 mg Al Hydroxide/Mg Hydroxide (Magnesium Hydrox/Alum Hydrox 30 Ml Oral.Susp) 30 ml PO Q6H PRN PRN Reason: Heartburn/Nausea Last Admin: 11/21/24 01:55 Dose: 30 ml Benzocaine (Throat Lozenge, Medicated Lozenge) 1 lozenge MUCOUS MEM Q2H PRN PRN Reason: Sore Throat Last Admin: 12/03/24 14:24 Dose: 1 lozenge Bupropion HCl (Bupropion Hcl Xl 300 Mg Tab.Er.24h) 300 mg PO DAILY STEWART On Hold: 11/21/24 09:50 Last Admin: 11/21/24 09:03 Dose: 300 mg Capsaicin (Capsaicin 0.025% Cream 60 Gm Tube) 1 appl TOPICAL TID PRN; Protocol PRN Reason: leg pain Last Admin: 12/04/24 21:01 Dose: 1 appl Clonidine HCl (Clonidine Hcl 0.1 Mg Tablet) 0.1 mg PO Q4H PRN; Protocol PRN Reason: moderate anxiety Last Admin: 12/06/24 10:40 Dose: 0.1 mg Clozapine (Clozapine 100 Mg Tablet) 400 mg PO BEDTIME STEWART Last Admin: 12/06/24 20:07 Dose: 400 mg Diazepam (Diazepam 5 Mg Tablet) 5 mg PO TID STEWART Last Admin: 12/06/24 20:07 Dose: 5 mg Diphenhydramine HCl (Diphenhydramine Hcl 25 Mg Capsule) 25 mg PO TID STEWART On Hold: 12/04/24 22:11 Last Admin: 12/04/24 22:16 Dose: 25 mg Divalproex Sodium (Divalproex Sodium Er 500 Mg Tab.Er.24h) 3,000 mg PO BEDTIME [facility] Last Admin: 12/06/24 20:07 Dose: 3,000 mg Docusate Sodium (Docusate Sodium 100 Mg Capsule) 100 mg PO BID [facility] Last Admin: 12/06/24 20:11 Dose: 100 mg Fenofibrate (Fenofibrate 160 Mg Tablet) 160 mg PO DAILY [facility] Last Admin: 12/06/24 08:21 Dose: 160 mg Fluticasone Propionate (Fluticasone Propionate Nasal 16 Gm [place]) 1 spray NOSTRIL-B BEDTIME [facility] Last Admin: 12/06/24 22:24 Dose: Not Given Fluticasone Propionate (Fluticasone Propionate Nasal 16 Gm [place]) 1 spray NOSTRIL-B DAILY PRN PRN Reason: Nasal allergy Last Admin: 11/24/24 06:25 Dose: 1 spray Glycopyrrolate (Glycopyrrolate 1 Mg Tablet) 1 mg PO TID [facility] Last Admin: 12/06/24 20:06 Dose: 1 mg Haloperidol (Haloperidol 5 Mg Tablet) 10 mg PO BID [facility] Last Admin: 12/06/24 20:08 Dose: 10 mg Haloperidol (Haloperidol 5 Mg Tablet) 5 mg PO DAILY@1300 [facility] Last Admin: 12/06/24 12:26 Dose: 5 mg Ibuprofen (Ibuprofen 400 Mg Tablet) 400 mg PO Q6H PRN PRN Reason: Pain, Moderate(Pain Scale 4-6) Last Admin: 12/05/24 07:39 Dose: 400 mg Lactulose (Lactulose 20 Gm/30 Ml Solution) 20 gm PO DAILY STEWART Lorazepam (Lorazepam 1 Mg Tablet) 1 mg PO Q8H PRN On Hold: 12/04/24 22:10 PRN Reason: Anxiety Last Admin: 12/04/24 21:02 Dose: 1 mg Magnesium Hydroxide (Milk Of Magnesia 30 Ml Oral.Susp) 30 ml PO DAILY PRN PRN Reason: Constipation Last Admin: 11/28/24 14:32 Dose: 30 ml Nicotine (Nicotine 21 Mg Patch.Td24) 21 mg TRANSDERMA DAILY PRN PRN Reason: smoking cessation Last Admin: 11/25/24 08:46 Dose: 21 mg Nicotine Polacrilex (Nicotine Polacrilex 2 Mg Gum) 4 mg BUCCAL Q2H PRN PRN Reason: Nicotine Cravings Last Admin: 12/04/24 05:43 Dose: 4 mg Ondansetron HCl (Ondansetron Odt 4 Mg Tab.Rapdis) 4 mg TRANSLINGU Q6H PRN PRN Reason: Nausea and Vomiting Last Admin: 11/28/24 16:14 Dose: 4 mg Polyethylene Glycol (Polyethylene Glycol 3350 17 Gm Powd.Pack) 17 gm PO DAILY STEWART On Hold: 12/04/24 10:12 Last Admin: 12/04/24 10:07 Dose: Not Given Polyethylene Glycol (Polyethylene Glycol 3350 17 Gm Powd.Pack) 17 gm PO DAILY PRN PRN Reason: Constipation Last Admin: 11/28/24 16:16 Dose: 17 gm Risperidone (Risperidone 2 Mg Tablet) 4 mg PO BEDTIME STEWART Last Admin: 12/06/24 20:07 Dose: 4 mg Risperidone (Risperidone 1 Mg Tablet) 1 mg PO DAILY STEWART Last Admin: 12/06/24 08:20 Dose: 1 mg Trazodone HCl (Trazodone Hcl 50 Mg Tablet) 50 mg PO BEDTIME MRX1 PRN PRN Reason: Insomnia Last Admin: 12/02/24 20:49 Dose: 50 mg Allergies Allergies Allergy/AdvReac Type Severity Reaction Status Date / Time benztropine (From COGENTIN) Allergy Unknown UNKNOWN Verified 11/16/24 15:51 propranolol (From INDERAL [place]) Allergy Unknown UNKNOWN Verified 11/16/24 15:51 chaste tree Allergy Unknown Verified 11/16/24 15:51 lithium Allergy Unknown Verified 11/16/24 15:51 Assessment & Plan Assessment & Plan (1) Schizoaffective disorder, bipolar type: Status: Acute Code(s): F25.0 - Schizoaffective disorder, bipolar type (2) Bilateral edema of lower extremity: Status: Acute Code(s): R60.0 - Localized edema (3) Autism spectrum disorder: Status: Acute Code(s): F84.0 - Autistic disorder (4) Cellulitis: Status: Acute Code(s): L03.90 - Cellulitis, unspecified (5) Class 3 obesity: Status: Acute Code(s): E66.813 - Obesity, class 3 Plan Patient is a 34-year-old male with history of schizoaffective disorder bipolar type, Autism Spectrum Disorder, who lives in a care home, on a [facility] who presents for depression. Patient reports that every 7 weeks (and every 4 months) medications don't work...and I feel depressed.... He says the the depression last anywhere from 2 to 12 days.. And then resolves on it's own without medication changes. Patient reports that he had suicidal ideation a few days ago, no plan but does not now. Patient says sometimes he hears sounds or voices that others do not hear, sometimes laughing noise but not very often and usually just during sleep. Discussed medication regimen and patient said that recently his Depakote was increased because he was having mood swings but it was difficult for him to give details. Discussed medication options and patient agrees to increase Wellbutrin to 450 mg. Formulation/clinical reasoning: Patient reports that episodically he still gets bouts of depression that can last for longer than a week however this seemed to resolve on their own. He is not sure what triggers them. Patient says he is already feeling better now that he is on the unit because of the friendships and interactions he has made since coming to the unit; patient signed a 3 day notice. Discussed medication options and patient agrees to increase Wellbutrin to 450 mg. Perinatal Tech wonders if perhaps patient can remain at Wellbutrin 300 mg and just take the extra 150 mg if he starts to feel depressed, sort of as an episodic p.r.n. -patient currently on 2 antipsychotics, including Clozaril and Risperdal; -some TD and pill rolling b/l hand tremor observed; wonder if Risperdal dose could be lowered; consider Aristeo Of note patient had severely high Triacylglycerides of 898. It appears to have been taken while patient fasting however patient is not sure. TAG this high puts patient at risk for pancreatitis. Will redraw labs tomorrow morning to ensure fasting however for now will treat as if this is an accurate lab Hospital course: 11/18: Continue current management and treatment plan. 11/19: Increase Depakote to 500 mg in AM and continue 1,000 mg HS. 11/20: continue current management and treatment plan. 11/21 Patient has become manic over the past several days. Additional Depakote dose was added but patient remains manic, grandiose, labile and intrusive. 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 Patient at 1 point broke down crying about the of his parents, saying that his mother was murdered but then saying she had a brain bleed.. Patient saying that he is from [place] and is going to go back and live his life and [place]... Initially demanding to be discharged today but was able to be redirected. Patient agrees to increased medications including adding Zyprexa -will hold Wellbutrin; seems likely that increasing Wellbutrin was what triggered manic episode -Increasing bedtime Depakote to 1250 mg -patient hardly slept last night and added Zyprexa 10 mg b.i.d.; plan is to discontinue once jacob subsides -reviewed labs and repeat cholesterol shows highly elevated TAG>500 though not as high as the day before 11/22 Patient did sleep some last night with added Zyprexa. Still manic but a little less intense and though still with some grandiose ideations, much less so. Patient still intrusive to others but redirectable. Patient did agree that he was acting manic yesterday but says he is fine now and wants to discharge. He persisted in demanding for discharge today and expressed frustration when told this is not possible but remained in behavioral control. -Great right toe with cellulitis; started on Keflex -Depakote labs ordered for Wednesday *patient is not stable to return to care home at this time. Will try to get him to retract his 3 day notice but will otherwise file for civil commitment; that said hopefully will not need to go to court and manic episode will resolve 11/23/24: Patient slept for 2 hours, was medication compliant. Denies side effect but observed have some hand tremors. Restless, racing thoughts, intrusive, poor boundaries, need multiple redirections most of the time to respect personal space. He is over friendly, bright, manic but appeared to be less manic compared to yesterday. Can be perseverative on discharge, redirectable and need to remind that he is not leaving today a couple of times. He retracted 3 day notice. He seems to be forgetful. To PRNs with mild to moderate effects. He works on puzzle, and cleaning up his room. He has an reasonable planning for the future, appeared to be grandiose no aggressive behavior, can be irritable at times when things not the way he requested. Continue to monitor for sleeping pattern. 11/24/24: Slept slightly improved compared to the night before, he was able to slept for 4 hours. Was medication compliant. Mood is I am happy. I am calm and relaxed . Reports foot pain, nursing have patient to put lotion on, encouraged to elevated legs when he resting as left food appear to be slightly swollen. He said he would like to go back to his care home. He also asked if he can call Carla and Max to apologize to them. Read direct patient not calling so many times that may annoying other persons. He admitted that he need to give them a break . Observe want time he was on the phone, appropriate. He is slightly better compared to yesterday, able to sit still, listen to advice/redirection. Even though he has delusional, and grandiose thoughts. Thinking he see a snake in his toilet, seeing his brother coming to see him. Per nursing he had unwitnessed fall when trying to put himself sitting down on the chair but missed it. Slightly better in term of manic behaviors, redirectable and less demanding. Redirected for personal space. Accepted it without any problems. 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 With much effort, Pt remains able to be redirected; examined great rt toe which remains with clear signs of cellulites -Start Ziprasidone -obtained EKG and qtc WNL -Depakote level with much room so will switch depakote to ER so can make at bedtime to help w/ sleep and will increase dose (Depakote IR 1750mg ~ Dep ER 2000) 11/26 Patient remains manic, intrusive, grandiose, tangential. Patient is intrusive to the point where some peers are getting very angry and some feeling provoked. -So far unable to break this manic episode; so far Zyprexa and Geodon have not affected patient and patient is in danger of unintentionally inciting peer aggression. -Thorazine 100 mg did not help either; will try Thorazine 200 mg t.i.d. combined with diazepam 15 mg t.i.d. (10mg did nothing) -if Thorazine does not help, will consider Haldol; also will soon get Depakote level and maybe able to increase other 11/27 Patient remains manic, grandiose, very intrusive with peers and staff, going into patient's rooms, walking up in into rejection himself, getting very close to people making people both angry and scared. Difficult decisions regarding treatment. Discussed case with Dr. Vázquez who agrees with plan For now, will discontinue Thorazine and Valium as typewriter ribbon winder is somewhat concern that all this sedating medication could add on a delirium to his already manic behaviors. Instead, will try Trileptal to help break manic episode; Trileptal has the least side effect risk profile of options so will give it a try (though not very robust evidence) -Considering Tegretol however this will lower the effective dose of both clozapine and Risperdal by 50% or more creating a confusing treatment regimen; also can affect the liver and bone marrow and patient is already on Depakote and Clozaril -also considering Haldol however patient is already on 2 antipsychotics -also considering Tamoxifen used off-label however increases thrombo embolism risk and can raise the effective doses of clozapine and Risperdal ECT remains the gold standard to treat refractory jacob however patient has a guardian and Vela which would need to be amended 11/28 Patient angry, punching the wall, yelling aggressively, peers is getting scared; 1 peer felt threatened and confronted patient pushed him but both were able to be redirected. Made a threatening remark to staff i'm going to break you... Remains floridly manic, hyperverbal, intrusive... He did say yes to ECT however understands guardian needs to weigh in clinical reasoning: -patient's increasing aggression and agitation seems directly correlated with having had Thorazine and diazepam discontinued. Restarted it for the purpose of patient and milieu safety. However it later came to typewriter ribbon winder's attention that Thorazine is not 1 of the antipsychotics listed on his community Vela..? Options that are available are Abilify and Haldol. Perinatal Tech lowered Thorazine to 100 mg and allowed for 1 last for tonight, again for milieu and patient safety however will discontinue it and will have to see if the other options are helpful Discussed case with colleague Dr. Meza who continues to agree that using Tegretol would cause too much mixing up of med regimen and that best option is to help patient remain safe while Depakote gets a chance to become therapeutic. Depakote level today 108; will continue with Depakote ER 3000mg and get level tomorrow -talked with Patients guardian Breezy Granados who says he has no objection to patient getting ECT 11/29 Patient for the 1st time since manic episodes started, more subdued today and slept from much of the day. During periods when he was awake, remains manic, intrusive, grandiose and saying bizarre things such as I am hairy potters twin and I need to get back to [facility]. -hopefully this is the sign that patient's manic episode is starting to wane; will continue with Depakote ER 3000 mg and get another level tomorrow (The?therapeutic range for acute jacob is 50?125 mcg/mL) 11/30 Still manic -added Abilfy 10mg daily; would prefer to try Haldol (both on Vela) but since Qtc is elevated will try Abilify first...(as mentioned despite qtc elevation, risk of TdP remains very low and Haldol remains an option. 12/01/24: Patient continued to be manic, intrusive, irritable most of the day, making threats. Making grandiose and paranoid delusional statements I need to go back to [place] to protect Jet [employer] . I am . I am the new president of the country . Patient was naked in the savage asking to talk to social media manager this morning per staffing reports. Patient remains in the group room at the other hallway. Remain on kitchen restriction, limit access to the other end of the savage. Patient compliant with medications, see PRNs for anxiety and agitation, restless, hyperverbal, hyperactive, irritable, needs a lot redirection,incongruent with mood stating that he is happy and have no anxiety or depression. Poor insight and poor judgment. Denies that he has any order diagnosis or mental health issues except for anger disorder VPA level on 11/30/24: 117.9 (The?therapeutic range for acute jacob is 50?125 mcg/mL) 12/02/24: Patient slept for 9 hours last night. Compliant with meds, less irritable and more pleasant today. Continue to delusional and grandiose. He is calmer compare to yesterday. No naked episode. Discontinue Abilify, start Haldol 5mg TID with goal to control manic/psychotic, racing thoughts/behaviors. Some mild drooling which improving per nursing. Lactulose 20mg BID. (Ammnonia level 60H) Discontinue Abilfy. start Haldol 5mg TID. EKG done- no change compare to previous record. Slightly prolong QTc. 12/03/24: Patient slept for 8 hours, compliant with medications,, appeared to have tremors, and drooling which is not worsening. Patient appeared to be sedated this morning with mild irritable mood, sometimes he hearing from his room loudly, but spend more time in his room today. Slightly less intrusive. Continued to be delusional and grandiose. He has loose stool, Colace and MiraLax was held but continue offer lactulose. We will check ammonia level tomorrow. Observe by lateral lower extremity edema. Hospitalist consult placed. Regarding depakote level: The?therapeutic range for acute jacob is 50?125 mcg/mL, and most patients respond within this range?1 https://dailymed.nlm.nih.gov/dailymed/drugInfo.cfm?cxbbp=7uh386vn-[email or web address] -[email or web address] ?2 https://pubmed.ncbi.nlm.nih.gov/22411291 .? of note, regarding EKG with prolonged Qtc: The incidence of torsades de pointes (TdP) from antipsychotic-induced QTc prolongation is?very low, estimated at?0.01?0.1%?(1?10 per 10,000 exposures) in clinical practice?1 https://pubmed.ncbi.nlm.nih.gov/72219524 ?2 https://pubmed.ncbi.nlm.nih.gov/87313194 . ?[And in the cases where someone did actually get TdP], the case fatality of TdP is also low, with?<10%?of TdP episodes resulting in cardiac , 12/04 Patient is doing better; less manic, less intrusive and resting more.? Still making grandiose delusional statements such as he is running for president with [employer], but certainly symptoms are improving.? He says he is on too much medication and typewriter ribbon winder agrees to review? -Lowered to Diazepam 5mg TID (down from 10mg) -dc Benadryl 25mg TID -has been refusing Lactulose; will recheck Ammonia; if elevated will start LCarnatine 12/05 remains hypomanic and making grandiose statements; continue treatment plan; continues to refuse lactulose. Will get labs 12/06 Still manic/hypomanic; overall more easily redirected and less hyperactive but still can be loud, intrusive and he continues to make grandiose statements saying he is the boss, he owns different things, he was born in different countries....sometimes yelling loudly in frustration...none of which is baseline -typewriter ribbon winder tried reality testing however this frustrated patient who remains with impaired insight to his manic episode increase Haldol to total daily dose of 25mg (up from 15mg) Monitoring Qtc ( QTcB Int : 471 ms on 12/06) Ammonia WNL; will lower Lactulose to 20mg daily (down from BID-has not always taken bedtime dose) 12/07 Patient remains manic/hypomanic; will continue current Haldol dose but may increase soon Plan: CV Q 15 minute checks On [facility] ORDER/guardianship Patient is not appropriate for groups or to be in kitchen 1. Jacob Increased Haldol to 10 mg b.i.d. and 5 mg in the afternoon; total daily dose of 25mg (up from 15mg) Continue Depakote ER 3000 mg qhs Continue Risperdal 1 mg a.m. and 4 mg q.h.s. Continue Clozaril 400 mg q.h.s.; Level: 403 and Norclozaril 137. DC Thorazine 200mg TID DC Diazpam 10mg TID; will taper and dc once jacob subsides dc Trileptal DC Ziprasidone no effect Dc zyprexa; does not seem to do much HOLD Wellbutrin XL (once jacob resolved likely re-titrate to Wellbutrin 300mg (likely increasing to 450mg triggered manic episode) STARTed Fenobibrate 160mg daily for severely elevated Triacylglycerides of 898 (pt has normal renal function) Continue other home medications -consider Ingrezza -adverse reaction to [place] (per patient) -consider Tegretol? 2. Great right toe cellulitis Increased to Keflex 500 mg qid for 7 days (discussed increased dose with hospitalist MARIA T) -examined 11/28 and cellulitis is resolving 3. TAG 898 (appears to be fasting)/Cholesterol 319 re-ordered Lipid panel: Trilgyciride 898 down to 581 on 11/18/24. Cholesterol 319 down to 317. AIC 5.5 WNL. Started Fenobibrate 160mg daily (pt has normal renal function) Change diet to Low Fat diet will consider Statin Ordered TSH (lft's WNL): 0.81 WNL Bilateral lower extremity edema Appears euvolemic on exam, encouraged leg elevation. L great toenail fungus We will need outpatient follow up with Podiatry for nail removal Class 3 obesity BMI 36.2 Weight loss encouraged Hypertriglyceridemia/hyperlipidemia Patient started on fenofibrate on November 17 Triglycerides down to 150. LDL cholesterol 124 Encouraged weight loss, encourage healthy food choices. Excessive drooling Seen by speech, swallow function is not a factor in saliva management, and no loss of motor function noted. Continue glycopyrrolate Patient educated on: diagnosis Informed Consent: does not understand Reason for continued inpatient stay Substantial Risk for: inability to function Time Spent With Patient Time: Total time managing care of this patient today ____ minutes.
[2024-12-07 09:01] VITALS: BP 130/71; PULSE 112; RESP 20; TEMP 36.3; O2SAT 97
[2024-12-07 10:09] VITALS: BP 140/75; PULSE 104
[2024-12-07 20:00] VITALS: BP 124/79; PULSE 118; TEMP 36.6; O2SAT 96
[2024-12-08 09:43] VITALS: BP 135/89; PULSE 104; TEMP 36.9; O2SAT 95
--- NOTE | 2024-12-08 10:17 | P.PNPSI_ITS ---
Subjective Subjective Date of Service: 12/08/24 Reason For Visit: Depressive D/O Schizoaffective Interim History: met with patient; discussed with team Seems more manic today, more irritable and yelling loudly in the savage, getting angry. Remains making grandiose statements Mental Status Exam Mental Status Exam Narrative: Pt is alert and oriented; behavior is manic/hypomanic, still hyperverbal but not as intense; still intrusive with peers but more easily redirectable; patient is not in distress; dressed in casual attire, unkempt; bilateral hand tremor; aggregate hygiene; mood is described as good and affect less expansive; eye contact appropriate; Speech verbose but not pressured and not really rambling; intermittent psychomotor agitation present; thought process can be goal oriented, but also tangential; Thought content remains with grandiose delusions; denies any SI/HI. Denies AVH Patients insight and judgment impaired Diagnostics Vital Signs (24Hr): Vital Signs - 24 hr 12/07/24 20:00 12/08/24 09:43 Temperature 97.8 F 98.4 F Pulse Rate 118 H 104 H Blood Pressure 124/79 135/89 Pulse Oximetry 96 95 Oxygen Delivery Method Room Air Room Air BMI result Body Mass Index 35.0 Labs 11/28/24 10:37 Labs: Laboratory Results - last 48 hr 12/07/24 07:56 Absolute Neuts (auto) 3.2 Medications Medications Current Medications Acetaminophen (Acetaminophen 325 Mg Tablet) 650 mg PO Q6H PRN PRN Reason: Headache/Pain, Scale 1-10 Last Admin: 12/04/24 05:37 Dose: 650 mg Al Hydroxide/Mg Hydroxide (Magnesium Hydrox/Alum Hydrox 30 Ml Oral.Susp) 30 ml PO Q6H PRN PRN Reason: Heartburn/Nausea Last Admin: 11/21/24 01:55 Dose: 30 ml Benzocaine (Throat Lozenge, Medicated Lozenge) 1 lozenge MUCOUS MEM Q2H PRN PRN Reason: Sore Throat Last Admin: 12/03/24 14:24 Dose: 1 lozenge Bupropion HCl (Bupropion Hcl Xl 300 Mg Tab.Er.24h) 300 mg PO DAILY [facility] On Hold: 11/21/24 09:50 Last Admin: 11/21/24 09:03 Dose: 300 mg Capsaicin (Capsaicin 0.025% Cream 60 Gm Tube) 1 appl TOPICAL TID PRN; Protocol PRN Reason: leg pain Last Admin: 12/04/24 21:01 Dose: 1 appl Clonidine HCl (Clonidine Hcl 0.1 Mg Tablet) 0.1 mg PO Q4H PRN; Protocol PRN Reason: moderate anxiety Last Admin: 12/07/24 10:12 Dose: 0.1 mg Clozapine (Clozapine 100 Mg Tablet) 400 mg PO BEDTIME [facility] Last Admin: 12/07/24 20:21 Dose: 400 mg Diazepam (Diazepam 5 Mg Tablet) 5 mg PO TID [facility] Last Admin: 12/08/24 09:45 Dose: 5 mg Diphenhydramine HCl (Diphenhydramine Hcl 25 Mg Capsule) 25 mg PO TID [facility] On Hold: 12/04/24 22:11 Last Admin: 12/04/24 22:16 Dose: 25 mg Divalproex Sodium (Divalproex Sodium Er 500 Mg Tab.Er.24h) 3,000 mg PO BEDTIME [facility] Last Admin: 12/07/24 20:24 Dose: 3,000 mg Docusate Sodium (Docusate Sodium 100 Mg Capsule) 100 mg PO BID [facility] Last Admin: 12/08/24 09:45 Dose: 100 mg Fenofibrate (Fenofibrate 160 Mg Tablet) 160 mg PO DAILY [facility] Last Admin: 12/08/24 09:45 Dose: 160 mg Fluticasone Propionate (Fluticasone Propionate Nasal 16 Gm [place]) 1 spray NOSTRIL-B BEDTIME [facility] Last Admin: 12/08/24 05:28 Dose: Not Given Fluticasone Propionate (Fluticasone Propionate Nasal 16 Gm [place]) 1 spray NOSTRIL-B DAILY PRN PRN Reason: Nasal allergy Last Admin: 11/24/24 06:25 Dose: 1 spray Glycopyrrolate (Glycopyrrolate 1 Mg Tablet) 1 mg PO TID [facility] Last Admin: 12/08/24 09:45 Dose: 1 mg Haloperidol (Haloperidol 5 Mg Tablet) 10 mg PO BID [facility] Last Admin: 12/08/24 09:45 Dose: 10 mg Haloperidol (Haloperidol 5 Mg Tablet) 5 mg PO DAILY@1300 [facility] Last Admin: 12/07/24 13:26 Dose: 5 mg Ibuprofen (Ibuprofen 400 Mg Tablet) 400 mg PO Q6H PRN PRN Reason: Pain, Moderate(Pain Scale 4-6) Last Admin: 12/05/24 07:39 Dose: 400 mg Lactulose (Lactulose 20 Gm/30 Ml Solution) 20 gm PO DAILY [facility] Last Admin: 12/08/24 09:44 Dose: 20 gm Lorazepam (Lorazepam 1 Mg Tablet) 1 mg PO Q8H PRN On Hold: 12/04/24 22:10 PRN Reason: Anxiety Last Admin: 12/04/24 21:02 Dose: 1 mg Magnesium Hydroxide (Milk Of Magnesia 30 Ml Oral.Susp) 30 ml PO DAILY PRN PRN Reason: Constipation Last Admin: 11/28/24 14:32 Dose: 30 ml Nicotine (Nicotine 21 Mg Patch.Td24) 21 mg TRANSDERMA DAILY PRN PRN Reason: smoking cessation Last Admin: 11/25/24 08:46 Dose: 21 mg Nicotine Polacrilex (Nicotine Polacrilex 2 Mg Gum) 4 mg BUCCAL Q2H PRN PRN Reason: Nicotine Cravings Last Admin: 12/04/24 05:43 Dose: 4 mg Ondansetron HCl (Ondansetron Odt 4 Mg Tab.Rapdis) 4 mg TRANSLINGU Q6H PRN PRN Reason: Nausea and Vomiting Last Admin: 11/28/24 16:14 Dose: 4 mg Polyethylene Glycol (Polyethylene Glycol 3350 17 Gm Powd.Pack) 17 gm PO DAILY [facility] On Hold: 12/04/24 10:12 Last Admin: 12/04/24 10:07 Dose: Not Given Polyethylene Glycol (Polyethylene Glycol 3350 17 Gm Powd.Pack) 17 gm PO DAILY PRN PRN Reason: Constipation Last Admin: 11/28/24 16:16 Dose: 17 gm Risperidone (Risperidone 2 Mg Tablet) 4 mg PO BEDTIME [facility] Last Admin: 12/07/24 20:24 Dose: 4 mg Risperidone (Risperidone 1 Mg Tablet) 1 mg PO DAILY [facility] Last Admin: 12/08/24 09:45 Dose: 1 mg Trazodone HCl (Trazodone Hcl 50 Mg Tablet) 50 mg PO BEDTIME MRX1 PRN PRN Reason: Insomnia Last Admin: 12/02/24 20:49 Dose: 50 mg Allergies Allergies Allergy/AdvReac Type Severity Reaction Status Date / Time benztropine (From COGENTIN) Allergy Unknown UNKNOWN Verified 11/16/24 15:51 propranolol (From INDERAL [place]) Allergy Unknown UNKNOWN Verified 11/16/24 15:51 chaste tree Allergy Unknown Verified 11/16/24 15:51 lithium Allergy Unknown Verified 11/16/24 15:51 Assessment & Plan Assessment & Plan (1) Schizoaffective disorder, bipolar type: Status: Acute Code(s): F25.0 - Schizoaffective disorder, bipolar type (2) Bilateral edema of lower extremity: Status: Acute Code(s): R60.0 - Localized edema (3) Autism spectrum disorder: Status: Acute Code(s): F84.0 - Autistic disorder (4) Cellulitis: Status: Acute Code(s): L03.90 - Cellulitis, unspecified (5) Class 3 obesity: Status: Acute Code(s): E66.813 - Obesity, class 3 Plan Patient is a 34-year-old male with history of schizoaffective disorder bipolar type, Autism Spectrum Disorder, who [facility] who [facility] for depression. Patient reports that every 7 weeks (and every 4 months) medications don't work...and I feel depressed.... He says the the depression last anywhere from 2 to 12 days.. And then resolves on it's own without medication changes. Patient reports that he had suicidal ideation a few days ago, no plan but does not now. Patient says sometimes he hears sounds or voices that others do not hear, sometimes laughing noise but not very often and usually just during sleep. Discussed medication regimen and patient said that recently his Depakote was increased because he was having mood swings but it was difficult for him to give details. Discussed medication options and patient agrees to increase Wellbutrin to 450 mg. Formulation/clinical reasoning: Patient reports that episodically he still gets bouts of depression that can last for longer than a week however this seemed to resolve on their own. He is not sure what triggers them. Patient says he is already feeling better now that he is on the unit because of the friendships and interactions he has made since coming to the unit; patient signed a 3 day notice. Discussed medication options and patient agrees to increase Wellbutrin to 450 mg. Bulk Pigment Reducer wonders if perhaps patient can remain at Wellbutrin 300 mg and just take the extra 150 mg if he starts to feel depressed, sort of as an episodic p.r.n. -patient currently on 2 antipsychotics, including Clozaril and Risperdal; -some TD and pill rolling b/l hand tremor observed; wonder if Risperdal dose could be lowered; consider Aristeo Of note patient had severely high Triacylglycerides of 898. It appears to have been taken while patient fasting however patient is not sure. TAG this high puts patient at risk for pancreatitis. Will redraw labs tomorrow morning to ensure fasting however for now will treat as if this is an accurate lab Hospital course: 11/18: Continue current management and treatment plan. 11/19: Increase Depakote to 500 mg in AM and continue 1,000 mg HS. 11/20: continue current management and treatment plan. 11/21 Patient has become manic over the past several days. Additional Depakote dose was added but patient remains manic, grandiose, labile and intrusive. 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 Patient at 1 point broke down crying about the of his parents, saying that his mother was murdered but then saying she had a brain bleed.. Patient saying that he is from [place] and is going to go back and live his life and [place]... Initially demanding to be discharged today but was able to be redirected. Patient agrees to increased medications including adding Zyprexa -will hold Wellbutrin; seems likely that increasing Wellbutrin was what triggered manic episode -Increasing bedtime Depakote to 1250 mg -patient hardly slept last night and added Zyprexa 10 mg b.i.d.; plan is to discontinue once jacob subsides -reviewed labs and repeat cholesterol shows highly elevated TAG>500 though not as high as the day before 11/22 Patient did sleep some last night with added Zyprexa. Still manic but a little less intense and though still with some grandiose ideations, much less so. Patient still intrusive to others but redirectable. Patient did agree that he was acting manic yesterday but says he is fine now and wants to discharge. He persisted in demanding for discharge today and expressed frustration when told this is not possible but remained in behavioral control. -Great right toe with cellulitis; started on Keflex -Depakote labs ordered for Wednesday *patient is not stable to return to mcc at this time. Will try to get him to retract his 3 day notice but will otherwise file for civil commitment; that said hopefully will not need to go to court and manic episode will resolve 11/23/24: Patient slept for 2 hours, was medication compliant. Denies side effect but observed have some hand tremors. Restless, racing thoughts, intrusive, poor boundaries, need multiple redirections most of the time to respect personal space. He is over friendly, bright, manic but appeared to be less manic compared to yesterday. Can be perseverative on discharge, redirectable and need to remind that he is not leaving today a couple of times. He retracted 3 day notice. He seems to be forgetful. To PRNs with mild to moderate effects. He works on puzzle, and cleaning up his room. He has an reasonable planning for the future, appeared to be grandiose no aggressive behavior, can be irritable at times when things not the way he requested. Continue to monitor for sleeping pattern. 11/24/24: Slept slightly improved compared to the night before, he was able to slept for 4 hours. Was medication compliant. Mood is I am happy. I am calm and relaxed . Reports foot pain, nursing have patient to put lotion on, encouraged to elevated legs when he resting as left food appear to be slightly swollen. He said he would like to go back to his m[facility]. He also asked if he can call Carla and Max to apologize to them. Read direct patient not calling so many times that may annoying other persons. He admitted that he need to give them a break . Observe want time he was on the phone, appropriate. He is slightly better compared to yesterday, able to sit still, listen to advice/redirection. Even though he has delusional, and grandiose thoughts. Thinking he see a snake in his toilet, seeing his brother coming to see him. Per nursing he had unwitnessed fall when trying to put himself sitting down on the chair but missed it. Slightly better in term of manic behaviors, redirectable and less demanding. Redirected for personal space. Accepted it without any problems. 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 With much effort, Pt remains able to be redirected; examined great rt toe which remains with clear signs of cellulites -Start Ziprasidone -obtained EKG and qtc WNL -Depakote level with much room so will switch depakote to ER so can make at bedtime to help w/ sleep and will increase dose (Depakote IR 1750mg ~ Dep ER 2000) 11/26 Patient remains manic, intrusive, grandiose, tangential. Patient is intrusive to the point where some peers are getting very angry and some feeling provoked. -So far unable to break this manic episode; so far Zyprexa and Geodon have not affected patient and patient is in danger of unintentionally inciting peer aggression. -Thorazine 100 mg did not help either; will try Thorazine 200 mg t.i.d. combined with diazepam 15 mg t.i.d. (10mg did nothing) -if Thorazine does not help, will consider Haldol; also will soon get Depakote level and maybe able to increase other 11/27 Patient remains manic, grandiose, very intrusive with peers and staff, going into patient's rooms, walking up in into rejection himself, getting very close to people making people both angry and scared. Difficult decisions regarding treatment. Discussed case with Dr. Vázquez who agrees with plan For now, will discontinue Thorazine and Valium as advertising copy writer is somewhat concern that all this sedating medication could add on a delirium to his already manic behaviors. Instead, will try Trileptal to help break manic episode; Trileptal has the least side effect risk profile of options so will give it a try (though not very robust evidence) -Considering Tegretol however this will lower the effective dose of both clozapine and Risperdal by 50% or more creating a confusing treatment regimen; also can affect the liver and bone marrow and patient is already on Depakote and Clozaril -also considering Haldol however patient is already on 2 antipsychotics -also considering Tamoxifen used off-label however increases thrombo embolism risk and can raise the effective doses of clozapine and Risperdal ECT remains the gold standard to treat refractory jacob however patient has a guardian and Vela which would need to be amended 11/28 Patient angry, punching the wall, yelling aggressively, peers is getting scared; 1 peer felt threatened and confronted patient pushed him but both were able to be redirected. Made a threatening remark to staff i'm going to break you... Remains floridly manic, hyperverbal, intrusive... He did say yes to ECT however understands guardian needs to weigh in clinical reasoning: -patient's increasing aggression and agitation seems directly correlated with having had Thorazine and diazepam discontinued. Restarted it for the purpose of patient and milieu safety. However it later came to advertising copy writer's attention that Thorazine is not 1 of the antipsychotics listed on his community Vela..? Options that are available are Abilify and Haldol. Bulk Pigment Reducer lowered Thorazine to 100 mg and allowed for 1 last for tonight, again for milieu and patient safety however will discontinue it and will have to see if the other options are helpful Discussed case with colleague Dr. Meza who continues to agree that using Tegretol would cause too much mixing up of med regimen and that best option is to help patient remain safe while Depakote gets a chance to become therapeutic. Depakote level today 108; will continue with Depakote ER 3000mg and get level tomorrow -talked with Patients guardian Breezy Granados who says he has no objection to patient getting ECT 11/29 Patient for the 1st time since manic episodes started, more subdued today and slept from much of the day. During periods when he was awake, remains manic, intrusive, grandiose and saying bizarre things such as I am hairy potters twin and [facility] -hopefully this is the sign that patient's manic episode is starting to wane; will continue with Depakote ER 3000 mg and get another level tomorrow (The?therapeutic range for acute jacob is 50?125 mcg/mL) 11/30 Still manic -added Abilfy 10mg daily; would prefer to try Haldol (both on Vela) but since Qtc is elevated will try Abilify first...(as mentioned despite qtc elevation, risk of TdP remains very low and Haldol remains an option. 12/01/24: Patient continued to be manic, intrusive, irritable most of the day, making threats. Making grandiose and paranoid delusional statements I need to go back to [place] to protect Jet Goldy . I am . I am the new president of the country . Patient was naked in the savage asking to talk to social media strategist this morning per staffing reports. Patient remains in the group room at the other hallway. Remain on kitchen restriction, limit access to the other end of the savage. Patient compliant with medications, see PRNs for anxiety and agitation, restless, hyperverbal, hyperactive, irritable, needs a lot redirection,incongruent with mood stating that he is happy and have no anxiety or depression. Poor insight and poor judgment. Denies that he has any order diagnosis or mental health issues except for anger disorder VPA level on 11/30/24: 117.9 (The?therapeutic range for acute jacob is 50?125 mcg/mL) 12/02/24: Patient slept for 9 hours last night. Compliant with meds, less irritable and more pleasant today. Continue to delusional and grandiose. He is calmer compare to yesterday. No naked episode. Discontinue Abilify, start Haldol 5mg TID with goal to control manic/psychotic, racing thoughts/behaviors. Some mild drooling which improving per nursing. Lactulose 20mg BID. (Ammnonia level 60H) Discontinue Abilfy. start Haldol 5mg TID. EKG done- no change compare to previous record. Slightly prolong QTc. 12/03/24: Patient slept for 8 hours, compliant with medications,, appeared to have tremors, and drooling which is not worsening. Patient appeared to be sedated this morning with mild irritable mood, sometimes he hearing from his room loudly, but spend more time in his room today. Slightly less intrusive. Continued to be delusional and grandiose. He has loose stool, Colace and MiraLax was held but continue offer lactulose. We will check ammonia level tomorrow. Observe by lateral lower extremity edema. Hospitalist consult placed. Regarding depakote level: The?therapeutic range for acute jacob is 50?125 mcg/mL, and most patients respond within this range?1 https://dailymed.nlm.nih.gov/dailymed/drugInfo.cfm?dmnot=8ut590kf-ega6-1519-3xh2 [email or web address] ?2 https://pubmed.ncbi.nlm.nih.gov/73483533 .? of note, regarding EKG with prolonged Qtc: The incidence of torsades de pointes (TdP) from antipsychotic-induced QTc prolongation is?very low, estimated at?0.01?0.1%?(1?10 per 10,000 exposures) in clinical practice?1 https://pubmed.ncbi.nlm.nih.gov/58754802 ?2 https://pubmed.ncbi.nlm.nih.gov/83099887 . ?[And in the cases where someone did actually get TdP], the case fatality of TdP is also low, with?<10%?of TdP episodes resulting in cardiac , 12/04 Patient is doing better; less manic, less intrusive and resting more.? Still making grandiose delusional statements such as he is running for president with [employer], but certainly symptoms are improving.? He says he is on too much medication and advertising copy writer agrees to review? -Lowered to Diazepam 5mg TID (down from 10mg) -dc Benadryl 25mg TID -has been refusing Lactulose; will recheck Ammonia; if elevated will start LCarnatine 12/05 remains hypomanic and making grandiose statements; continue treatment plan; continues to refuse lactulose. Will get labs 12/06 Still manic/hypomanic; overall more easily redirected and less hyperactive but still can be loud, intrusive and he continues to make grandiose statements saying he is the boss, he owns different things, he was born in different countries....sometimes yelling loudly in frustration...none of which is baseline -advertising copy writer tried reality testing however this frustrated patient who remains with impaired insight to his manic episode increase Haldol to total daily dose of 25mg (up from 15mg) Monitoring Qtc ( QTcB Int : 471 ms on 12/06) Ammonia WNL; will lower Lactulose to 20mg daily (down from BID-has not always taken bedtime dose) 12/07 Patient remains manic/hypomanic; will continue current Haldol dose but may increase soon 12/08 remains manic, intrusive and grandiose; semiconductor processing group leader came in met with him and find some far from baseline. Patient getting angry or today than previously and yelling angrily in the hallway needing to be frequently redirected as he is causing anxiety in the milieu Will increase Haldol to 10 mg t.i.d. If this does not work, will strongly consider tamoxifen as it will take considerable time to petition the court to add ECT to his community Gift Card Combo Plan: CV Q 15 minute checks On [facility] [employer] ORDER/guardianship Patient is not appropriate for groups or to be in kitchen 1. Jacob Increased Haldol to 10 mg t.i.d. Continue Depakote ER 3000 mg qhs Continue Risperdal 1 mg a.m. and 4 mg q.h.s. Continue Clozaril 400 mg q.h.s.; Level: 403 and Norclozaril 137. DC Thorazine 200mg TID DC Diazpam 10mg TID; will taper and dc once jacob subsides dc Trileptal DC Ziprasidone no effect Dc zyprexa; does not seem to do much HOLD Wellbutrin XL (once jacob resolved likely re-titrate to Wellbutrin 300mg (likely increasing to 450mg triggered manic episode) STARTed Fenobibrate 160mg daily for severely elevated Triacylglycerides of 898 (pt has normal renal function) Continue other home medications -consider Ingrezza -adverse reaction to [place] (per patient) -consider Tegretol? 2. Great right toe cellulitis Increased to Keflex 500 mg qid for 7 days (discussed increased dose with hospitalist MARIA T) -examined 11/28 and cellulitis is resolving 3. TAG 898 (appears to be fasting)/Cholesterol 319 re-ordered Lipid panel: Trilgyciride 898 down to 581 on 11/18/24. Cholesterol 319 down to 317. AIC 5.5 WNL. Started Fenobibrate 160mg daily (pt has normal renal function) Change diet to Low Fat diet will consider Statin Ordered TSH (lft's WNL): 0.81 WNL Bilateral lower extremity edema Appears euvolemic on exam, encouraged leg elevation. L great toenail fungus We will need outpatient follow up with Podiatry for nail removal Class 3 obesity BMI 36.2 Weight loss encouraged Hypertriglyceridemia/hyperlipidemia Patient started on fenofibrate on November 17 Triglycerides down to 150. LDL cholesterol 124 Encouraged weight loss, encourage healthy food choices. Excessive drooling Seen by speech, swallow function is not a factor in saliva management, and no loss of motor function noted. Continue glycopyrrolate Patient educated on: diagnosis Informed Consent: does not understand Reason for continued inpatient stay Substantial Risk for: inability to function Time Spent With Patient Time: Total time managing care of this patient today ____ minutes.
[2024-12-09 08:00] VITALS: BP 130/60; PULSE 116; RESP 18; TEMP 36.6; O2SAT 96
--- NOTE | 2024-12-09 09:26 | HO.PSYCHPN ---
Subjective Subjective Date of Service: 12/09/24 Reason For Visit: Depressive D/O Schizoaffective Interim History: met with patient; discussed with team; reviewed chart Remains manic, intrusive with peers. Yelling very angrily this morning in the shower; pretended the door was locked at 1 point. Sometimes yelling loudly in the hallway and slamming doors. Otherwise comes up to staff and peers, typically making unrelated, grandiose statements. Told television script writer that the police are after him... That we need to find his brother and he could be in [place], [place]... Mental Status Exam Mental Status Exam Narrative: Pt is alert and oriented; behavior is manic/hypomanic, and can be loud and angry; still hyperverbal 9maybe not as intense); still intrusive with peers but more easily redirectable; patient is not in distress; dressed in casual attire, unkempt; bilateral hand tremor; aggregate hygiene; mood is described as good and affect less expansive; eye contact appropriate; Speech verbose but not pressured and not really rambling; intermittent psychomotor agitation present; thought process can be goal oriented, but also tangential; Thought content remains with grandiose delusions; denies any SI/HI. Denies AVH Patients insight and judgment impaired Diagnostics Vital Signs (24Hr): Vital Signs - 24 hr 12/08/24 09:43 12/09/24 08:00 Temperature 98.4 F 97.8 F Pulse Rate 104 H 116 H Respiratory Rate 18 Blood Pressure 135/89 130/60 Pulse Oximetry 95 96 Oxygen Delivery Method Room Air Room Air BMI result Body Mass Index 35.0 Labs 11/28/24 10:37 Medications Medications Current Medications Acetaminophen (Acetaminophen 325 Mg Tablet) 650 mg PO Q6H PRN PRN Reason: Headache/Pain, Scale 1-10 Last Admin: 12/09/24 05:55 Dose: 650 mg Al Hydroxide/Mg Hydroxide (Magnesium Hydrox/Alum Hydrox 30 Ml Oral.Susp) 30 ml PO Q6H PRN PRN Reason: Heartburn/Nausea Last Admin: 11/21/24 01:55 Dose: 30 ml Benzocaine (Throat Lozenge, Medicated Lozenge) 1 lozenge MUCOUS MEM Q2H PRN PRN Reason: Sore Throat Last Admin: 12/03/24 14:24 Dose: 1 lozenge Capsaicin (Capsaicin 0.025% Cream 60 Gm Tube) 1 appl TOPICAL TID PRN; Protocol PRN Reason: leg pain Last Admin: 12/04/24 21:01 Dose: 1 appl Clonidine HCl (Clonidine Hcl 0.1 Mg Tablet) 0.1 mg PO Q4H PRN; Protocol PRN Reason: moderate anxiety Last Admin: 12/09/24 05:55 Dose: 0.1 mg Clozapine (Clozapine 100 Mg Tablet) 400 mg PO BEDTIME STEWART Last Admin: 12/08/24 21:01 Dose: 400 mg Diazepam (Diazepam 5 Mg Tablet) 5 mg PO TID STEWART Last Admin: 12/09/24 08:58 Dose: 5 mg Diphenhydramine HCl (Diphenhydramine Hcl 25 Mg Capsule) 25 mg PO TID STEWART On Hold: 12/04/24 22:11 Last Admin: 12/04/24 22:16 Dose: 25 mg Divalproex Sodium (Divalproex Sodium Er 500 Mg Tab.Er.24h) 3,000 mg PO BEDTIME STEWART Last Admin: 12/08/24 20:59 Dose: 3,000 mg Docusate Sodium (Docusate Sodium 100 Mg Capsule) 100 mg PO BID STEWART Last Admin: 12/09/24 08:58 Dose: 100 mg Fenofibrate (Fenofibrate 160 Mg Tablet) 160 mg PO DAILY STEWART Last Admin: 12/09/24 08:58 Dose: 160 mg Fluticasone Propionate (Fluticasone Propionate Nasal 16 Gm [place]) 1 spray NOSTRIL-B BEDTIME STEWART Last Admin: 12/08/24 20:58 Dose: 1 spray Fluticasone Propionate (Fluticasone Propionate Nasal 16 Gm [place]) 1 spray NOSTRIL-B DAILY PRN PRN Reason: Nasal allergy Last Admin: 11/24/24 06:25 Dose: 1 spray Glycopyrrolate (Glycopyrrolate 1 Mg Tablet) 1 mg PO TID STEWART Last Admin: 12/09/24 08:58 Dose: 1 mg Haloperidol (Haloperidol 5 Mg Tablet) 10 mg PO TID STEWART Last Admin: 12/09/24 08:58 Dose: 10 mg Ibuprofen (Ibuprofen 400 Mg Tablet) 400 mg PO Q6H PRN PRN Reason: Pain, Moderate(Pain Scale 4-6) Last Admin: 12/05/24 07:39 Dose: 400 mg Lactulose (Lactulose 20 Gm/30 Ml Solution) 20 gm PO DAILY STEWART Last Admin: 12/09/24 08:58 Dose: 20 gm Lorazepam (Lorazepam 1 Mg Tablet) 1 mg PO Q8H PRN On Hold: 12/04/24 22:10 PRN Reason: Anxiety Last Admin: 12/04/24 21:02 Dose: 1 mg Magnesium Hydroxide (Milk Of Magnesia 30 Ml Oral.Susp) 30 ml PO DAILY PRN PRN Reason: Constipation Last Admin: 11/28/24 14:32 Dose: 30 ml Nicotine (Nicotine 21 Mg Patch.Td24) 21 mg TRANSDERMA DAILY PRN PRN Reason: smoking cessation Last Admin: 11/25/24 08:46 Dose: 21 mg Nicotine Polacrilex (Nicotine Polacrilex 2 Mg Gum) 4 mg BUCCAL Q2H PRN PRN Reason: Nicotine Cravings Last Admin: 12/04/24 05:43 Dose: 4 mg Ondansetron HCl (Ondansetron Odt 4 Mg Tab.Rapdis) 4 mg TRANSLINGU Q6H PRN PRN Reason: Nausea and Vomiting Last Admin: 11/28/24 16:14 Dose: 4 mg Polyethylene Glycol (Polyethylene Glycol 3350 17 Gm Powd.Pack) 17 gm PO DAILY STEWART On Hold: 12/04/24 10:12 Last Admin: 12/04/24 10:07 Dose: Not Given Polyethylene Glycol (Polyethylene Glycol 3350 17 Gm Powd.Pack) 17 gm PO DAILY PRN PRN Reason: Constipation Last Admin: 11/28/24 16:16 Dose: 17 gm Risperidone (Risperidone 2 Mg Tablet) 4 mg PO BEDTIME STEWART Last Admin: 12/08/24 21:00 Dose: 4 mg Risperidone (Risperidone 1 Mg Tablet) 1 mg PO DAILY STEWART Last Admin: 12/09/24 08:58 Dose: 1 mg Trazodone HCl (Trazodone Hcl 50 Mg Tablet) 50 mg PO BEDTIME MRX1 PRN PRN Reason: Insomnia Last Admin: 12/02/24 20:49 Dose: 50 mg Allergies Allergies Allergy/AdvReac Type Severity Reaction Status Date / Time benztropine (From COGENTIN) Allergy Unknown UNKNOWN Verified 11/16/24 15:51 propranolol (From INDERAL LA) Allergy Unknown UNKNOWN Verified 11/16/24 15:51 chaste tree Allergy Unknown Verified 11/16/24 15:51 lithium Allergy Unknown Verified 11/16/24 15:51 Assessment & Plan Assessment & Plan (1) Schizoaffective disorder, bipolar type: Status: Acute Code(s): F25.0 - Schizoaffective disorder, bipolar type (2) Bilateral edema of lower extremity: Status: Acute Code(s): R60.0 - Localized edema (3) Autism spectrum disorder: Status: Acute Code(s): F84.0 - Autistic disorder (4) Cellulitis: Status: Acute Code(s): L03.90 - Cellulitis, unspecified (5) Class 3 obesity: Status: Acute Code(s): E66.813 - Obesity, class 3 Plan Patient is a 34-year-old male with history of schizoaffective disorder bipolar type, Autism Spectrum Disorder, who lives in a prison, on a [facility] who presents for depression. Patient reports that every 7 weeks (and every 4 months) medications don't work...and I feel depressed.... He says the the depression last anywhere from 2 to 12 days.. And then resolves on it's own without medication changes. Patient reports that he had suicidal ideation a few days ago, no plan but does not now. Patient says sometimes he hears sounds or voices that others do not hear, sometimes laughing noise but not very often and usually just during sleep. Discussed medication regimen and patient said that recently his Depakote was increased because he was having mood swings but it was difficult for him to give details. Discussed medication options and patient agrees to increase Wellbutrin to 450 mg. Formulation/clinical reasoning: Patient reports that episodically he still gets bouts of depression that can last for longer than a week however this seemed to resolve on their own. He is not sure what triggers them. Patient says he is already feeling better now that he is on the unit because of the friendships and interactions he has made since coming to the unit; patient signed a 3 day notice. Discussed medication options and patient agrees to increase Wellbutrin to 450 mg. Personal Driver wonders if perhaps patient can remain at Wellbutrin 300 mg and just take the extra 150 mg if he starts to feel depressed, sort of as an episodic p.r.n. -patient currently on 2 antipsychotics, including Clozaril and Risperdal; -some TD and pill rolling b/l hand tremor observed; wonder if Risperdal dose could be lowered; consider Aristeo Of note patient had severely high Triacylglycerides of 898. It appears to have been taken while patient fasting however patient is not sure. TAG this high puts patient at risk for pancreatitis. Will redraw labs tomorrow morning to ensure fasting however for now will treat as if this is an accurate lab Hospital course: 11/18: Continue current management and treatment plan. 11/19: Increase Depakote to 500 mg in AM and continue 1,000 mg HS. 11/20: continue current management and treatment plan. 11/21 Patient has become manic over the past several days. Additional Depakote dose was added but patient remains manic, grandiose, labile and intrusive. 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 Patient at 1 point broke down crying about the of his parents, saying that his mother was murdered but then saying she had a brain bleed.. Patient saying that he is from [place] and is going to go back and live his life and [place]... Initially demanding to be discharged today but was able to be redirected. Patient agrees to increased medications including adding Zyprexa -will hold Wellbutrin; seems likely that increasing Wellbutrin was what triggered manic episode -Increasing bedtime Depakote to 1250 mg -patient hardly slept last night and added Zyprexa 10 mg b.i.d.; plan is to discontinue once jacob subsides -reviewed labs and repeat cholesterol shows highly elevated TAG>500 though not as high as the day before 11/22 Patient did sleep some last night with added Zyprexa. Still manic but a little less intense and though still with some grandiose ideations, much less so. Patient still intrusive to others but redirectable. Patient did agree that he was acting manic yesterday but says he is fine now and wants to discharge. He persisted in demanding for discharge today and expressed frustration when told this is not possible but remained in behavioral control. -Great right toe with cellulitis; started on Keflex -Depakote labs ordered for Wednesday *patient is not stable to return to prison at this time. Will try to get him to retract his 3 day notice but will otherwise file for civil commitment; that said hopefully will not need to go to court and manic episode will resolve 11/23/24: Patient slept for 2 hours, was medication compliant. Denies side effect but observed have some hand tremors. Restless, racing thoughts, intrusive, poor boundaries, need multiple redirections most of the time to respect personal space. He is over friendly, bright, manic but appeared to be less manic compared to yesterday. Can be perseverative on discharge, redirectable and need to remind that he is not leaving today a couple of times. He retracted 3 day notice. He seems to be forgetful. To PRNs with mild to moderate effects. He works on puzzle, and cleaning up his room. He has an reasonable planning for the future, appeared to be grandiose no aggressive behavior, can be irritable at times when things not the way he requested. Continue to monitor for sleeping pattern. 11/24/24: Slept slightly improved compared to the night before, he was able to slept for 4 hours. Was medication compliant. Mood is I am happy. I am calm and relaxed . Reports foot pain, nursing have patient to put lotion on, encouraged to elevated legs when he resting as left food appear to be slightly swollen. He said he would like to go back to his prison. He also asked if he can call Carla and Max to apologize to them. Read direct patient not calling so many times that may annoying other persons. He admitted that he need to give them a break . Observe want time he was on the phone, appropriate. He is slightly better compared to yesterday, able to sit still, listen to advice/redirection. Even though he has delusional, and grandiose thoughts. Thinking he see a snake in his toilet, seeing his brother coming to see him. Per nursing he had unwitnessed fall when trying to put himself sitting down on the chair but missed it. Slightly better in term of manic behaviors, redirectable and less demanding. Redirected for personal space. Accepted it without any problems. 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 With much effort, Pt remains able to be redirected; examined great rt toe which remains with clear signs of cellulites -Start Ziprasidone -obtained EKG and qtc WNL -Depakote level with much room so will switch depakote to ER so can make at bedtime to help w/ sleep and will increase dose (Depakote IR 1750mg ~ Dep ER 2000) 11/26 Patient remains manic, intrusive, grandiose, tangential. Patient is intrusive to the point where some peers are getting very angry and some feeling provoked. -So far unable to break this manic episode; so far Zyprexa and Geodon have not affected patient and patient is in danger of unintentionally inciting peer aggression. -Thorazine 100 mg did not help either; will try Thorazine 200 mg t.i.d. combined with diazepam 15 mg t.i.d. (10mg did nothing) -if Thorazine does not help, will consider Haldol; also will soon get Depakote level and maybe able to increase other 11/27 Patient remains manic, grandiose, very intrusive with peers and staff, going into patient's rooms, walking up in into rejection himself, getting very close to people making people both angry and scared. Difficult decisions regarding treatment. Discussed case with Dr. Vázquez who agrees with plan For now, will discontinue Thorazine and Valium as television script writer is somewhat concern that all this sedating medication could add on a delirium to his already manic behaviors. Instead, will try Trileptal to help break manic episode; Trileptal has the least side effect risk profile of options so will give it a try (though not very robust evidence) -Considering Tegretol however this will lower the effective dose of both clozapine and Risperdal by 50% or more creating a confusing treatment regimen; also can affect the liver and bone marrow and patient is already on Depakote and Clozaril -also considering Haldol however patient is already on 2 antipsychotics -also considering Tamoxifen used off-label however increases thrombo embolism risk and can raise the effective doses of clozapine and Risperdal ECT remains the gold standard to treat refractory jacob however patient has a guardian and [place] which would need to be amended 11/28 Patient angry, punching the wall, yelling aggressively, peers is getting scared; 1 peer felt threatened and confronted patient pushed him but both were able to be redirected. Made a threatening remark to staff i'm going to break you... Remains floridly manic, hyperverbal, intrusive... He did say yes to ECT however understands guardian needs to weigh in clinical reasoning: -patient's increasing aggression and agitation seems directly correlated with having had Thorazine and diazepam discontinued. Restarted it for the purpose of patient and milieu safety. However it later came to television script writer's attention that Thorazine is not 1 of the antipsychotics listed on his community [place]..? Options that are available are Abilify and Haldol. Personal Driver lowered Thorazine to 100 mg and allowed for 1 last for tonight, again for milieu and patient safety however will discontinue it and will have to see if the other options are helpful Discussed case with colleague Dr. Meza who continues to agree that using Tegretol would cause too much mixing up of med regimen and that best option is to help patient remain safe while Depakote gets a chance to become therapeutic. Depakote level today 108; will continue with Depakote ER 3000mg and get level tomorrow -talked with Patients guardian Breezy Granados who says he has no objection to patient getting ECT 11/29 Patient for the 1st time since manic episodes started, more subdued today and slept from much of the day. During periods when he was awake, remains manic, intrusive, grandiose and saying bizarre things such as I am hairy potters twin and I need to get back to [facility]. -hopefully this is the sign that patient's manic episode is starting to wane; will continue with Depakote ER 3000 mg and get another level tomorrow (The?therapeutic range for acute jacob is 50?125 mcg/mL) 11/30 Still manic -added Abilfy 10mg daily; would prefer to try Haldol (both on [place]) but since Qtc is elevated will try Abilify first...(as mentioned despite qtc elevation, risk of TdP remains very low and Haldol remains an option. 12/01/24: Patient continued to be manic, intrusive, irritable most of the day, making threats. Making grandiose and paranoid delusional statements I need to go back to [place] to protect Jet Goldy . I am . I am the new president of the country . Patient was naked in the savage asking to talk to social welfare research worker this morning per staffing reports. Patient remains in the group room at the other hallway. Remain on kitchen restriction, limit access to the other end of the savage. Patient compliant with medications, see PRNs for anxiety and agitation, restless, hyperverbal, hyperactive, irritable, needs a lot redirection,incongruent with mood stating that he is happy and have no anxiety or depression. Poor insight and poor judgment. Denies that he has any order diagnosis or mental health issues except for anger disorder VPA level on 11/30/24: 117.9 (The?therapeutic range for acute jacob is 50?125 mcg/mL) 12/02/24: Patient slept for 9 hours last night. Compliant with meds, less irritable and more pleasant today. Continue to delusional and grandiose. He is calmer compare to yesterday. No naked episode. Discontinue Abilify, start Haldol 5mg TID with goal to control manic/psychotic, racing thoughts/behaviors. Some mild drooling which improving per nursing. Lactulose 20mg BID. (Ammnonia level 60H) Discontinue Abilfy. start Haldol 5mg TID. EKG done- no change compare to previous record. Slightly prolong QTc. 12/03/24: Patient slept for 8 hours, compliant with medications,, appeared to have tremors, and drooling which is not worsening. Patient appeared to be sedated this morning with mild irritable mood, sometimes he hearing from his room loudly, but spend more time in his room today. Slightly less intrusive. Continued to be delusional and grandiose. He has loose stool, Colace and MiraLax was held but continue offer lactulose. We will check ammonia level tomorrow. Observe by lateral lower extremity edema. Hospitalist consult placed. Regarding depakote level: The?therapeutic range for acute jacob is 50?125 mcg/mL, and most patients respond within this range?1https://dailymed.nlm.nih.gov/dailymed/drugInfo.cfm?ycflv=[email or web address]?2https://pubmed.ncbi.nlm.nih.gov/28749218.? of note, regarding EKG with prolonged Qtc: The incidence of torsades de pointes (TdP) from antipsychotic-induced QTc prolongation is?very low, estimated at?0.01?0.1%?(1?10 per 10,000 exposures) in clinical practice?1https://pubmed.ncbi.nlm.nih.gov/06385397?2https://pubmed.ncbi.nlm.nih.gov/01079673. ?[And in the cases where someone did actually get TdP], the case fatality of TdP is also low, with?<10%?of TdP episodes resulting in cardiac , 12/04 Patient is doing better; less manic, less intrusive and resting more.? Still making grandiose delusional statements such as he is running for president with [employer], but certainly symptoms are improving.? He says he is on too much medication and television script writer agrees to review? -Lowered to Diazepam 5mg TID (down from 10mg) -dc Benadryl 25mg TID -has been refusing Lactulose; will recheck Ammonia; if elevated will start LCarnatine 12/05 remains hypomanic and making grandiose statements; continue treatment plan; continues to refuse lactulose. Will get labs 12/06 Still manic/hypomanic; overall more easily redirected and less hyperactive but still can be loud, intrusive and he continues to make grandiose statements saying he is the boss, he owns different things, he was born in different countries....sometimes yelling loudly in frustration...none of which is baseline -television script writer tried reality testing however this frustrated patient who remains with impaired insight to his manic episode increase Haldol to total daily dose of 25mg (up from 15mg) Monitoring Qtc ( QTcB Int : 471 ms on 12/06) Ammonia WNL; will lower Lactulose to 20mg daily (down from BID-has not always taken bedtime dose) 12/07 Patient remains manic/hypomanic; will continue current Haldol dose but may increase soon 12/08 remains manic, intrusive and grandiose; operations research group manager came in met with him and find some far from baseline. Patient getting angry or today than previously and yelling angrily in the hallway needing to be frequently redirected as he is causing anxiety in the milieu Will increase Haldol to 10 mg t.i.d. If this does not work, will strongly consider tamoxifen as it will take considerable time to petition the court to add ECT to his [facility] [place] 12/09 Remains manic, intrusive with peers. Yelling very angrily this morning in the shower; pretended the door was locked at 1 point. Sometimes yelling loudly in the hallway and slamming doors. Otherwise comes up to staff and peers, typically making unrelated, grandiose statements. Told television script writer that the police are after him... That we need to find his brother and he could be in [place], [place]... Treatment plan: -patient seems to have regressed some in his progress...(though this is a nuanced observation and the progress alluded to was minimal if even there) For now will continue with Haldol 10 mg t.i.d.. It is difficult to know whether or not Abilify had been helping and that he decompensated a little once it was replaced with Haldol he started decompensating or if nothing has been helpful and his manic symptoms just ebb and flow... -tamoxifen remains an option Plan: CV Q 15 minute checks On community [place] ORDER/guardianship Patient is not appropriate for groups or to be in kitchen 1. Jacob Increased Haldol to 10 mg t.i.d. Continue Depakote ER 3000 mg qhs Continue Risperdal 1 mg a.m. and 4 mg q.h.s. Continue Clozaril 400 mg q.h.s.; Level: 403 and Norclozaril 137. DC Thorazine 200mg TID DC Diazpam 10mg TID; will taper and dc once jacob subsides dc Trileptal DC Ziprasidone no effect Dc zyprexa; does not seem to do much HOLD Wellbutrin XL (once jacob resolved likely re-titrate to Wellbutrin 300mg (likely increasing to 450mg triggered manic episode) STARTed Fenobibrate 160mg daily for severely elevated Triacylglycerides of 898 (pt has normal renal function) Continue other home medications -consider Ingrezza -adverse reaction to [place] (per patient) -consider Tegretol? 2. Great right toe cellulitis Increased to Keflex 500 mg qid for 7 days (discussed increased dose with hospitalist MARIA T) -examined 11/28 and cellulitis is resolving 3. TAG 898 (appears to be fasting)/Cholesterol 319 re-ordered Lipid panel: Trilgyciride 898 down to 581 on 11/18/24. Cholesterol 319 down to 317. AIC 5.5 WNL. Started Fenobibrate 160mg daily (pt has normal renal function) Change diet to Low Fat diet will consider Statin Ordered TSH (lft's WNL): 0.81 WNL Bilateral lower extremity edema Appears euvolemic on exam, encouraged leg elevation. L great toenail fungus We will need outpatient follow up with Podiatry for nail removal Class 3 obesity BMI 36.2 Weight loss encouraged Hypertriglyceridemia/hyperlipidemia Patient started on fenofibrate on November 17 Triglycerides down to 150. LDL cholesterol 124 Encouraged weight loss, encourage healthy food choices. Excessive drooling Seen by speech, swallow function is not a factor in saliva management, and no loss of motor function noted. Continue glycopyrrolate Patient educated on: diagnosis Informed Consent: understands, does not understand and further education needed Reason for continued inpatient stay Substantial Risk for: inability to function Time Spent With Patient Time: Total time managing care of this patient today ____ minutes.
[2024-12-09 10:53] VITALS: BP 134/79
[2024-12-09 11:50] VITALS: BMI 34.2
[2024-12-09] MEDS: Throat Lozenge, Medicated LOZENGE 1 LOZENGE MUCOUS MEM (18:24)
[2024-12-09 20:57] VITALS: BP 137/78; PULSE 108; RESP 16; TEMP 36.4; O2SAT 97
[2024-12-10] MEDS: Throat Lozenge, Medicated LOZENGE 1 LOZENGE MUCOUS MEM ×2 (04:33→14:21)
[2024-12-10 08:00] VITALS: BP 129/81; PULSE 114; RESP 18; TEMP 36.3; O2SAT 96
--- NOTE | 2024-12-10 12:51 | HO.PSYCHPN ---
Subjective Subjective Date of Service: 12/10/24 Reason For Visit: Depressive D/O Schizoaffective Interim History: Met with patient; discussed with team; pretty much the same presentation; maybe a little more calm? Difficult to tell. Patient remains intrusive but redirectable. Mental Status Exam Mental Status Exam Narrative: Pt is alert and oriented; behavior is manic/hypomanic, and can be loud and angry; still hyperverbal 9maybe not as intense); still intrusive with peers but more easily redirectable; patient is not in distress; dressed in casual attire, unkempt; bilateral hand tremor; aggregate hygiene; mood is described as good and affect less expansive; eye contact appropriate; Speech verbose but not pressured and not really rambling; intermittent psychomotor agitation present; thought process can be goal oriented, but also tangential; Thought content remains with grandiose delusions; denies any SI/HI. Denies AVH Patients insight and judgment impaired Diagnostics Vital Signs (24Hr): Vital Signs - 24 hr 12/09/24 20:57 12/10/24 08:00 Temperature 97.5 F 97.4 F Pulse Rate 108 H 114 H Respiratory Rate 16 18 Blood Pressure 137/78 129/81 Pulse Oximetry 97 96 Oxygen Delivery Method Room Air Room Air BMI result Body Mass Index 34.2 Labs 11/28/24 10:37 Medications Medications Current Medications Acetaminophen (Acetaminophen 325 Mg Tablet) 650 mg PO Q6H PRN PRN Reason: Headache/Pain, Scale 1-10 Last Admin: 12/09/24 16:30 Dose: 650 mg Al Hydroxide/Mg Hydroxide (Magnesium Hydrox/Alum Hydrox 30 Ml Oral.Susp) 30 ml PO Q6H PRN PRN Reason: Heartburn/Nausea Last Admin: 11/21/24 01:55 Dose: 30 ml Benzocaine (Throat Lozenge, Medicated Lozenge) 1 lozenge MUCOUS MEM Q2H PRN PRN Reason: Sore Throat Last Admin: 12/10/24 04:33 Dose: 1 lozenge Capsaicin (Capsaicin 0.025% Cream 60 Gm Tube) 1 appl TOPICAL TID PRN; Protocol PRN Reason: leg pain Last Admin: 12/09/24 11:45 Dose: 1 appl Clonidine HCl (Clonidine Hcl 0.1 Mg Tablet) 0.1 mg PO Q4H PRN; Protocol PRN Reason: moderate anxiety Last Admin: 12/10/24 03:42 Dose: 0.1 mg Clozapine (Clozapine 100 Mg Tablet) 400 mg PO BEDTIME [facility] Last Admin: 12/09/24 20:42 Dose: 400 mg Diazepam (Diazepam 5 Mg Tablet) 5 mg PO TID [facility] Last Admin: 12/10/24 08:40 Dose: 5 mg Diphenhydramine HCl (Diphenhydramine Hcl 25 Mg Capsule) 25 mg PO TID STEWART On Hold: 12/04/24 22:11 Last Admin: 12/04/24 22:16 Dose: 25 mg Divalproex Sodium (Divalproex Sodium Er 500 Mg Tab.Er.24h) 3,000 mg PO BEDTIME [facility] Last Admin: 12/09/24 20:43 Dose: 3,000 mg Docusate Sodium (Docusate Sodium 100 Mg Capsule) 100 mg PO BID [facility] Last Admin: 12/10/24 08:39 Dose: 100 mg Fenofibrate (Fenofibrate 160 Mg Tablet) 160 mg PO DAILY [facility] Last Admin: 12/10/24 08:40 Dose: 160 mg Fluticasone Propionate (Fluticasone Propionate Nasal 16 Gm Monument) 1 spray NOSTRIL-B BEDTIME [facility] Last Admin: 12/09/24 20:45 Dose: 1 spray Fluticasone Propionate (Fluticasone Propionate Nasal 16 Gm Monument) 1 spray NOSTRIL-B DAILY PRN PRN Reason: Nasal allergy Last Admin: 11/24/24 06:25 Dose: 1 spray Glycopyrrolate (Glycopyrrolate 1 Mg Tablet) 1 mg PO TID [facility] Last Admin: 12/10/24 08:40 Dose: 1 mg Haloperidol (Haloperidol 5 Mg Tablet) 10 mg PO TID [facility] Last Admin: 12/10/24 08:40 Dose: 10 mg Ibuprofen (Ibuprofen 400 Mg Tablet) 400 mg PO Q6H PRN PRN Reason: Pain, Moderate(Pain Scale 4-6) Last Admin: 12/09/24 16:02 Dose: 400 mg Lactulose (Lactulose 20 Gm/30 Ml Solution) 20 gm PO DAILY [facility] On Hold: 12/10/24 08:55 Last Admin: 12/10/24 08:39 Dose: 20 gm Lorazepam (Lorazepam 1 Mg Tablet) 1 mg PO Q8H PRN PRN Reason: Anxiety Last Admin: 12/10/24 03:42 Dose: 1 mg Magnesium Hydroxide (Milk Of Magnesia 30 Ml Oral.Susp) 30 ml PO DAILY PRN PRN Reason: Constipation Last Admin: 11/28/24 14:32 Dose: 30 ml Nicotine (Nicotine 21 Mg Patch.Td24) 21 mg TRANSDERMA DAILY PRN PRN Reason: smoking cessation Last Admin: 11/25/24 08:46 Dose: 21 mg Nicotine Polacrilex (Nicotine Polacrilex 2 Mg Gum) 4 mg BUCCAL Q2H PRN PRN Reason: Nicotine Cravings Last Admin: 12/04/24 05:43 Dose: 4 mg Ondansetron HCl (Ondansetron Odt 4 Mg Tab.Rapdis) 4 mg TRANSLINGU Q6H PRN PRN Reason: Nausea and Vomiting Last Admin: 11/28/24 16:14 Dose: 4 mg Polyethylene Glycol (Polyethylene Glycol 3350 17 Gm Powd.Pack) 17 gm PO DAILY STEWART On Hold: 12/04/24 10:12 Last Admin: 12/04/24 10:07 Dose: Not Given Polyethylene Glycol (Polyethylene Glycol 3350 17 Gm Powd.Pack) 17 gm PO DAILY PRN PRN Reason: Constipation Last Admin: 11/28/24 16:16 Dose: 17 gm Risperidone (Risperidone 2 Mg Tablet) 4 mg PO BEDTIME STEWART Last Admin: 12/09/24 20:41 Dose: 4 mg Risperidone (Risperidone 1 Mg Tablet) 1 mg PO DAILY STEWART Last Admin: 12/10/24 08:40 Dose: 1 mg Trazodone HCl (Trazodone Hcl 50 Mg Tablet) 50 mg PO BEDTIME MRX1 PRN PRN Reason: Insomnia Last Admin: 12/02/24 20:49 Dose: 50 mg Allergies Allergies Allergy/AdvReac Type Severity Reaction Status Date / Time benztropine (From COGENTIN) Allergy Unknown UNKNOWN Verified 11/16/24 15:51 propranolol (From INDERAL LA) Allergy Unknown UNKNOWN Verified 11/16/24 15:51 chaste tree Allergy Unknown Verified 11/16/24 15:51 lithium Allergy Unknown Verified 11/16/24 15:51 Assessment & Plan Assessment & Plan (1) Schizoaffective disorder, bipolar type: Status: Acute Code(s): F25.0 - Schizoaffective disorder, bipolar type (2) Bilateral edema of lower extremity: Status: Acute Code(s): R60.0 - Localized edema (3) Autism spectrum disorder: Status: Acute Code(s): F84.0 - Autistic disorder (4) Cellulitis: Status: Acute Code(s): L03.90 - Cellulitis, unspecified (5) Class 3 obesity: Status: Acute Code(s): E66.813 - Obesity, class 3 Plan Patient is a 34-year-old male with history of schizoaffective disorder bipolar type, Autism Spectrum Disorder, who lives in a [facility], on a [facility]ela who presents for depression. Patient reports that every 7 weeks (and every 4 months) medications don't work...and I feel depressed.... He says the the depression last anywhere from 2 to 12 days.. And then resolves on it's own without medication changes. Patient reports that he had suicidal ideation a few days ago, no plan but does not now. Patient says sometimes he hears sounds or voices that others do not hear, sometimes laughing noise but not very often and usually just during sleep. Discussed medication regimen and patient said that recently his Depakote was increased because he was having mood swings but it was difficult for him to give details. Discussed medication options and patient agrees to increase Wellbutrin to 450 mg. Formulation/clinical reasoning: Patient reports that episodically he still gets bouts of depression that can last for longer than a week however this seemed to resolve on their own. He is not sure what triggers them. Patient says he is already feeling better now that he is on the unit because of the friendships and interactions he has made since coming to the unit; patient signed a 3 day notice. Discussed medication options and patient agrees to increase Wellbutrin to 450 mg. Fruit Checker wonders if perhaps patient can remain at Wellbutrin 300 mg and just take the extra 150 mg if he starts to feel depressed, sort of as an episodic p.r.n. -patient currently on 2 antipsychotics, including Clozaril and Risperdal; -some TD and pill rolling b/l hand tremor observed; wonder if Risperdal dose could be lowered; consider Ingrezza Of note patient had severely high Triacylglycerides of 898. It appears to have been taken while patient fasting however patient is not sure. TAG this high puts patient at risk for pancreatitis. Will redraw labs tomorrow morning to ensure fasting however for now will treat as if this is an accurate lab Hospital course: 11/18: Continue current management and treatment plan. 11/19: Increase Depakote to 500 mg in AM and continue 1,000 mg HS. 11/20: continue current management and treatment plan. 11/21 Patient has become manic over the past several days. Additional Depakote dose was added but patient remains manic, grandiose, labile and intrusive. 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 Patient at 1 point broke down crying about the of his parents, saying that his mother was murdered but then saying she had a brain bleed.. Patient saying that he is from [place] and is going to go back and live his life and [place]... Initially demanding to be discharged today but was able to be redirected. Patient agrees to increased medications including adding Zyprexa -will hold Wellbutrin; seems likely that increasing Wellbutrin was what triggered manic episode -Increasing bedtime Depakote to 1250 mg -patient hardly slept last night and added Zyprexa 10 mg b.i.d.; plan is to discontinue once jacob subsides -reviewed labs and repeat cholesterol shows highly elevated TAG>500 though not as high as the day before 11/22 Patient did sleep some last night with added Zyprexa. Still manic but a little less intense and though still with some grandiose ideations, much less so. Patient still intrusive to others but redirectable. Patient did agree that he was acting manic yesterday but says he is fine now and wants to discharge. He persisted in demanding for discharge today and expressed frustration when told this is not possible but remained in behavioral control. -Great right toe with cellulitis; started on Keflex -Depakote labs ordered for Wednesday *patient is not stable to return to [facility] at this time. Will try to get him to retract his 3 day notice but will otherwise file for civil commitment; that said hopefully will not need to go to court and manic episode will resolve 11/23/24: Patient slept for 2 hours, was medication compliant. Denies side effect but observed have some hand tremors. Restless, racing thoughts, intrusive, poor boundaries, need multiple redirections most of the time to respect personal space. He is over friendly, bright, manic but appeared to be less manic compared to yesterday. Can be perseverative on discharge, redirectable and need to remind that he is not leaving today a couple of times. He retracted 3 day notice. He seems to be forgetful. To PRNs with mild to moderate effects. He works on puzzle, and cleaning up his room. He has an reasonable planning for the future, appeared to be grandiose no aggressive behavior, can be irritable at times when things not the way he requested. Continue to monitor for sleeping pattern. 11/24/24: Slept slightly improved compared to the night before, he was able to slept for 4 hours. Was medication compliant. Mood is I am happy. I am calm and relaxed . Reports foot pain, nursing have patient to put lotion on, encouraged to elevated legs when he resting as left food appear to be slightly swollen. He said he would like to go back to his [facility]. He also asked if he can call Carla and Max to apologize to them. Read direct patient not calling so many times that may annoying other persons. He admitted that he need to give them a break . Observe want time he was on the phone, appropriate. He is slightly better compared to yesterday, able to sit still, listen to advice/redirection. Even though he has delusional, and grandiose thoughts. Thinking he see a snake in his toilet, seeing his brother coming to see him. Per nursing he had unwitnessed fall when trying to put himself sitting down on the chair but missed it. Slightly better in term of manic behaviors, redirectable and less demanding. Redirected for personal space. Accepted it without any problems. 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 With much effort, Pt remains able to be redirected; examined great rt toe which remains with clear signs of cellulites -Start Ziprasidone -obtained EKG and qtc WNL -Depakote level with much room so will switch depakote to ER so can make at bedtime to help w/ sleep and will increase dose (Depakote IR 1750mg ~ Dep ER 2000) 11/26 Patient remains manic, intrusive, grandiose, tangential. Patient is intrusive to the point where some peers are getting very angry and some feeling provoked. -So far unable to break this manic episode; so far Zyprexa and Geodon have not affected patient and patient is in danger of unintentionally inciting peer aggression. -Thorazine 100 mg did not help either; will try Thorazine 200 mg t.i.d. combined with diazepam 15 mg t.i.d. (10mg did nothing) -if Thorazine does not help, will consider Haldol; also will soon get Depakote level and maybe able to increase other 11/27 Patient remains manic, grandiose, very intrusive with peers and staff, going into patient's rooms, walking up in into rejection himself, getting very close to people making people both angry and scared. Difficult decisions regarding treatment. Discussed case with Dr. Vázquez who agrees with plan For now, will discontinue Thorazine and Valium as publicity writer is somewhat concern that all this sedating medication could add on a delirium to his already manic behaviors. Instead, will try Trileptal to help break manic episode; Trileptal has the least side effect risk profile of options so will give it a try (though not very robust evidence) -Considering Tegretol however this will lower the effective dose of both clozapine and Risperdal by 50% or more creating a confusing treatment regimen; also can affect the liver and bone marrow and patient is already on Depakote and Clozaril -also considering Haldol however patient is already on 2 antipsychotics -also considering Tamoxifen used off-label however increases thrombo embolism risk and can raise the effective doses of clozapine and Risperdal ECT remains the gold standard to treat refractory jacob however patient has a guardian and Vela which would need to be amended 11/28 Patient angry, punching the wall, yelling aggressively, peers is getting scared; 1 peer felt threatened and confronted patient pushed him but both were able to be redirected. Made a threatening remark to staff i'm going to break you... Remains floridly manic, hyperverbal, intrusive... He did say yes to ECT however understands guardian needs to weigh in clinical reasoning: -patient's increasing aggression and agitation seems directly correlated with having had Thorazine and diazepam discontinued. Restarted it for the purpose of patient and milieu safety. However it later came to publicity writer's attention that Thorazine is not 1 of the antipsychotics listed on his community Vela..? Options that are available are Abilify and Haldol. Fruit Checker lowered Thorazine to 100 mg and allowed for 1 last for tonight, again for milieu and patient safety however will discontinue it and will have to see if the other options are helpful Discussed case with colleague Dr. Meza who continues to agree that using Tegretol would cause too much mixing up of med regimen and that best option is to help patient remain safe while Depakote gets a chance to become therapeutic. Depakote level today 108; will continue with Depakote ER 3000mg and get level tomorrow -talked with Patients guardian Breezy Granados who says he has no objection to patient getting ECT 11/29 Patient for the 1st time since manic episodes started, more subdued today and slept from much of the day. During periods when he was awake, remains manic, intrusive, grandiose and saying bizarre things such as I am hairy potters twin and I need to get back to [facility]. -hopefully this is the sign that patient's manic episode is starting to wane; will continue with Depakote ER 3000 mg and get another level tomorrow (The?therapeutic range for acute jacob is 50?125 mcg/mL) 11/30 Still manic -added Abilfy 10mg daily; would prefer to try Haldol (both on Vela) but since Qtc is elevated will try Abilify first...(as mentioned despite qtc elevation, risk of TdP remains very low and Haldol remains an option. 12/01/24: Patient continued to be manic, intrusive, irritable most of the day, making threats. Making grandiose and paranoid delusional statements I need to go back to [place] to protect Elver Winslow . I am . I am the new president of the country . Patient was naked in the savage asking to talk to social service coordinator this morning per staffing reports. Patient remains in the group room at the other hallway. Remain on kitchen restriction, limit access to the other end of the savage. Patient compliant with medications, see PRNs for anxiety and agitation, restless, hyperverbal, hyperactive, irritable, needs a lot redirection,incongruent with mood stating that he is happy and have no anxiety or depression. Poor insight and poor judgment. Denies that he has any order diagnosis or mental health issues except for anger disorder VPA level on 11/30/24: 117.9 (The?therapeutic range for acute jacob is 50?125 mcg/mL) 12/02/24: Patient slept for 9 hours last night. Compliant with meds, less irritable and more pleasant today. Continue to delusional and grandiose. He is calmer compare to yesterday. No naked episode. Discontinue Abilify, start Haldol 5mg TID with goal to control manic/psychotic, racing thoughts/behaviors. Some mild drooling which improving per nursing. Lactulose 20mg BID. (Ammnonia level 60H) Discontinue Abilfy. start Haldol 5mg TID. EKG done- no change compare to previous record. Slightly prolong QTc. 12/03/24: Patient slept for 8 hours, compliant with medications,, appeared to have tremors, and drooling which is not worsening. Patient appeared to be sedated this morning with mild irritable mood, sometimes he hearing from his room loudly, but spend more time in his room today. Slightly less intrusive. Continued to be delusional and grandiose. He has loose stool, Colace and MiraLax was held but continue offer lactulose. We will check ammonia level tomorrow. Observe by lateral lower extremity edema. Hospitalist consult placed. Regarding depakote level: The?therapeutic range for acute jacob is 50?125 mcg/mL, and most patients respond within this range?1https://dailymed.nlm.nih.gov/dailymed/drugInfo.cfm?ldiqc=[email or web address]?2https://pubmed.ncbi.nlm.nih.gov/26813095.? of note, regarding EKG with prolonged Qtc: The incidence of torsades de pointes (TdP) from antipsychotic-induced QTc prolongation is?very low, estimated at?0.01?0.1%?(1?10 per 10,000 exposures) in clinical practice?1https://pubmed.ncbi.nlm.nih.gov/79903734?2https://pubmed.ncbi.nlm.nih.gov/36177883. ?[And in the cases where someone did actually get TdP], the case fatality of TdP is also low, with?<10%?of TdP episodes resulting in cardiac , 12/04 Patient is doing better; less manic, less intrusive and resting more.? Still making grandiose delusional statements such as he is running for president with [employer], but certainly symptoms are improving.? He says he is on too much medication and publicity writer agrees to review? -Lowered to Diazepam 5mg TID (down from 10mg) -dc Benadryl 25mg TID -has been refusing Lactulose; will recheck Ammonia; if elevated will start LCarnatine 12/05 remains hypomanic and making grandiose statements; continue treatment plan; continues to refuse lactulose. Will get labs 12/06 Still manic/hypomanic; overall more easily redirected and less hyperactive but still can be loud, intrusive and he continues to make grandiose statements saying he is the boss, he owns different things, he was born in different countries....sometimes yelling loudly in frustration...none of which is baseline -publicity writer tried reality testing however this frustrated patient who remains with impaired insight to his manic episode increase Haldol to total daily dose of 25mg (up from 15mg) Monitoring Qtc ( QTcB Int : 471 ms on 12/06) Ammonia WNL; will lower Lactulose to 20mg daily (down from BID-has not always taken bedtime dose) 12/07 Patient remains manic/hypomanic; will continue current Haldol dose but may increase soon 12/08 remains manic, intrusive and grandiose; leadite worker came in met with him and find some far from baseline. Patient getting angry or today than previously and yelling angrily in the hallway needing to be frequently redirected as he is causing anxiety in the milieu Will increase Haldol to 10 mg t.i.d. If this does not work, will strongly consider tamoxifen as it will take considerable time to petition the court to add ECT to his community [place] 12/09 Remains manic, intrusive with peers. Yelling very angrily this morning in the shower; pretended the door was locked at 1 point. Sometimes yelling loudly in the hallway and slamming doors. Otherwise comes up to staff and peers, typically making unrelated, grandiose statements. Told publicity writer that the police are after him... That we need to find his brother and he could be in [place], [place]... Treatment plan: -patient seems to have regressed some in his progress...(though this is a nuanced observation and the progress alluded to was minimal if even there) For now will continue with Haldol 10 mg t.i.d.. It is difficult to know whether or not Abilify had been helping and that he decompensated a little once it was replaced with Haldol he started decompensating or if nothing has been helpful and his manic symptoms just ebb and flow... -tamoxifen remains an option 12/10 pretty much the same presentation; maybe a little more calm? Difficult to tell. Patient remains intrusive but redirectable. -continue current treatment plan for now; will give a few more days on Haldol to see if patient improves Plan: CV Q 15 minute checks On [facility] ORDER/guardianship Patient is not appropriate for groups or to be in kitchen 1. Jacob Increased Haldol to 10 mg t.i.d. Continue Depakote ER 3000 mg qhs Continue Risperdal 1 mg a.m. and 4 mg q.h.s. Continue Clozaril 400 mg q.h.s.; Level: 403 and Norclozaril 137. DC Thorazine 200mg TID DC Diazpam 10mg TID; will taper and dc once jacob subsides dc Trileptal DC Ziprasidone no effect Dc zyprexa; does not seem to do much HOLD Wellbutrin XL (once jacob resolved likely re-titrate to Wellbutrin 300mg (likely increasing to 450mg triggered manic episode) STARTed Fenobibrate 160mg daily for severely elevated Triacylglycerides of 898 (pt has normal renal function) Continue other home medications -consider Ingrezza -adverse reaction to [place] (per patient) -consider Tegretol? 2. Great right toe cellulitis Increased to Keflex 500 mg qid for 7 days (discussed increased dose with hospitalist MARIA T) -examined 11/28 and cellulitis is resolving 3. TAG 898 (appears to be fasting)/Cholesterol 319 re-ordered Lipid panel: Trilgyciride 898 down to 581 on 11/18/24. Cholesterol 319 down to 317. AIC 5.5 WNL. Started Fenobibrate 160mg daily (pt has normal renal function) Change diet to Low Fat diet will consider Statin Ordered TSH (lft's WNL): 0.81 WNL Bilateral lower extremity edema Appears euvolemic on exam, encouraged leg elevation. L great toenail fungus We will need outpatient follow up with Podiatry for nail removal Class 3 obesity BMI 36.2 Weight loss encouraged Hypertriglyceridemia/hyperlipidemia Patient started on fenofibrate on November 17 Triglycerides down to 150. LDL cholesterol 124 Encouraged weight loss, encourage healthy food choices. Excessive drooling Seen by speech, swallow function is not a factor in saliva management, and no loss of motor function noted. Continue glycopyrrolate Patient educated on: diagnosis Informed Consent: does not understand Reason for continued inpatient stay Substantial Risk for: inability to function Time Spent With Patient Time: Total time managing care of this patient today ____ minutes.
[2024-12-10 19:59] VITALS: BP 141/81; TEMP 36.4; O2SAT 98
[2024-12-11 09:15] VITALS: BP 147/83; PULSE 110; TEMP 36.8; O2SAT 96
--- NOTE | 2024-12-11 10:03 | P.PNPSI_ITS ---
Subjective Subjective Date of Service: 12/11/24 Reason For Visit: Depressive D/O Schizoaffective Interim History: met with patient; discussed with team Remains manic/hypomanic; maybe easier to redirect but still intrusive; still making bizarre or grandiose statements maybe a little less so. Patient continues to have very angry outburst, slamming doors and hitting the wall, sometimes yelling loudly and aggressively, but again able to be redirected Mental Status Exam Mental Status Exam Narrative: Pt is alert and oriented; behavior is manic/hypomanic, and can be loud and angry; still hyperverbal 9maybe not as intense); still intrusive with peers but more easily redirectable; patient is not in distress; dressed in casual attire, unkempt; bilateral hand tremor; aggregate hygiene; mood is described as good and affect less expansive; eye contact appropriate; Speech verbose but not pressured and not really rambling; intermittent psychomotor agitation present; thought process can be goal oriented, but also tangential; Thought content remains with grandiose delusions; denies any SI/HI. Denies AVH Patients insight and judgment impaired Diagnostics Vital Signs (24Hr): Vital Signs - 24 hr 12/10/24 19:59 12/11/24 09:15 Temperature 97.6 F 98.2 F Pulse Rate 110 H Blood Pressure 141/81 H 147/83 H Pulse Oximetry 98 96 Oxygen Delivery Method Room Air Room Air BMI result Body Mass Index 34.2 Labs 11/28/24 10:37 Medications Medications Current Medications Acetaminophen (Acetaminophen 325 Mg Tablet) 650 mg PO Q6H PRN PRN Reason: Headache/Pain, Scale 1-10 Last Admin: 12/09/24 16:30 Dose: 650 mg Al Hydroxide/Mg Hydroxide (Magnesium Hydrox/Alum Hydrox 30 Ml Oral.Susp) 30 ml PO Q6H PRN PRN Reason: Heartburn/Nausea Last Admin: 11/21/24 01:55 Dose: 30 ml Benzocaine (Throat Lozenge, Medicated Lozenge) 1 lozenge MUCOUS MEM Q2H PRN PRN Reason: Sore Throat Last Admin: 12/10/24 14:21 Dose: 1 lozenge Capsaicin (Capsaicin 0.025% Cream 60 Gm Tube) 1 appl TOPICAL TID PRN; Protocol PRN Reason: leg pain Last Admin: 12/10/24 13:12 Dose: 1 appl Clonidine HCl (Clonidine Hcl 0.1 Mg Tablet) 0.1 mg PO Q4H PRN; Protocol PRN Reason: moderate anxiety Last Admin: 12/10/24 03:42 Dose: 0.1 mg Clozapine (Clozapine 100 Mg Tablet) 400 mg PO BEDTIME [facility] Last Admin: 12/10/24 21:09 Dose: 400 mg Diazepam (Diazepam 5 Mg Tablet) 5 mg PO TID [facility] Last Admin: 12/11/24 09:16 Dose: 5 mg Diphenhydramine HCl (Diphenhydramine Hcl 25 Mg Capsule) 25 mg PO TID [facility] On Hold: 12/04/24 22:11 Last Admin: 12/04/24 22:16 Dose: 25 mg Divalproex Sodium (Divalproex Sodium Er 500 Mg Tab.Er.24h) 3,000 mg PO BEDTIME [facility] Last Admin: 12/10/24 21:11 Dose: 3,000 mg Docusate Sodium (Docusate Sodium 100 Mg Capsule) 100 mg PO BID [facility] Last Admin: 12/11/24 09:16 Dose: 100 mg Fenofibrate (Fenofibrate 160 Mg Tablet) 160 mg PO DAILY [facility] Last Admin: 12/11/24 09:15 Dose: 160 mg Fluticasone Propionate (Fluticasone Propionate Nasal 16 Gm [place]) 1 spray NOSTRIL-B BEDTIME [facility] Last Admin: 12/10/24 21:17 Dose: Not Given Fluticasone Propionate (Fluticasone Propionate Nasal 16 Gm [place]) 1 spray NOSTRIL-B DAILY PRN PRN Reason: Nasal allergy Last Admin: 11/24/24 06:25 Dose: 1 spray Glycopyrrolate (Glycopyrrolate 1 Mg Tablet) 1 mg PO TID [facility] Last Admin: 12/11/24 09:15 Dose: 1 mg Haloperidol (Haloperidol 5 Mg Tablet) 10 mg PO TID [facility] Last Admin: 12/11/24 09:16 Dose: 10 mg Ibuprofen (Ibuprofen 400 Mg Tablet) 400 mg PO Q6H PRN PRN Reason: Pain, Moderate(Pain Scale 4-6) Last Admin: 12/11/24 09:16 Dose: 400 mg Lactulose (Lactulose 20 Gm/30 Ml Solution) 20 gm PO DAILY [facility] On Hold: 12/10/24 08:55 Last Admin: 12/10/24 08:39 Dose: 20 gm Lorazepam (Lorazepam 1 Mg Tablet) 1 mg PO Q8H PRN PRN Reason: Anxiety Last Admin: 12/10/24 03:42 Dose: 1 mg Magnesium Hydroxide (Milk Of Magnesia 30 Ml Oral.Susp) 30 ml PO DAILY PRN PRN Reason: Constipation Last Admin: 11/28/24 14:32 Dose: 30 ml Nicotine (Nicotine 21 Mg Patch.Td24) 21 mg TRANSDERMA DAILY PRN PRN Reason: smoking cessation Last Admin: 11/25/24 08:46 Dose: 21 mg Nicotine Polacrilex (Nicotine Polacrilex 2 Mg Gum) 4 mg BUCCAL Q2H PRN PRN Reason: Nicotine Cravings Last Admin: 12/04/24 05:43 Dose: 4 mg Ondansetron HCl (Ondansetron Odt 4 Mg Tab.Rapdis) 4 mg TRANSLINGU Q6H PRN PRN Reason: Nausea and Vomiting Last Admin: 11/28/24 16:14 Dose: 4 mg Polyethylene Glycol (Polyethylene Glycol 3350 17 Gm Powd.Pack) 17 gm PO DAILY [facility] On Hold: 12/04/24 10:12 Last Admin: 12/04/24 10:07 Dose: Not Given Polyethylene Glycol (Polyethylene Glycol 3350 17 Gm Powd.Pack) 17 gm PO DAILY PRN PRN Reason: Constipation Last Admin: 11/28/24 16:16 Dose: 17 gm Risperidone (Risperidone 2 Mg Tablet) 4 mg PO BEDTIME [facility] Last Admin: 12/10/24 21:11 Dose: 4 mg Risperidone (Risperidone 1 Mg Tablet) 1 mg PO DAILY [facility] Last Admin: 12/11/24 09:16 Dose: 1 mg Trazodone HCl (Trazodone Hcl 50 Mg Tablet) 50 mg PO BEDTIME MRX1 PRN PRN Reason: Insomnia Last Admin: 12/02/24 20:49 Dose: 50 mg Allergies Allergies Allergy/AdvReac Type Severity Reaction Status Date / Time benztropine (From COGENT[facility]) Allergy Unknown UNKNOWN Verified 11/16/24 15:51 propranolol (From [facility]DERAL [place]) Allergy Unknown UNKNOWN Verified 11/16/24 15:51 chaste tree Allergy Unknown Verified 11/16/24 15:51 lithium Allergy Unknown Verified 11/16/24 15:51 Assessment & Plan Assessment & Plan (1) Schizoaffective disorder, bipolar type: Status: Acute Code(s): F25.0 - Schizoaffective disorder, bipolar type (2) Bilateral edema of lower extremity: Status: Acute Code(s): R60.0 - Localized edema (3) Autism spectrum disorder: Status: Acute Code(s): F84.0 - Autistic disorder (4) Cellulitis: Status: Acute Code(s): L03.90 - Cellulitis, unspecified (5) Class 3 obesity: Status: Acute Code(s): E66.813 - Obesity, class 3 Plan Patient is a 34-year-old male with history of schizoaffective disorder bipolar type, Autism Spectrum Disorder, who lives in a [place] [facility], on a [facility] [place] who presents for depression. Patient reports that every 7 weeks (and every 4 months) medications don't work...and I feel depressed.... He says the the depression last anywhere from 2 to 12 days.. And then resolves on it's own without medication changes. Patient reports that he had suicidal ideation a few days ago, no plan but does not now. Patient says sometimes he hears sounds or voices that others do not hear, sometimes laughing noise but not very often and usually just during sleep. Discussed medication regimen and patient said that recently his Depakote was increased because he was having mood swings but it was difficult for him to give details. Discussed medication options and patient agrees to increase Wellbutrin to 450 mg. Formulation/clinical reasoning: Patient reports that episodically he still gets bouts of depression that can last for longer than a week however this seemed to resolve on their own. He is not sure what triggers them. Patient says he is already feeling better now that he is on the unit because of the friendships and interactions he has made since coming to the unit; patient signed a 3 day notice. Discussed medication options and patient agrees to increase Wellbutrin to 450 mg. Flame Planer wonders if perhaps patient can remain at Wellbutrin 300 mg and just take the extra 150 mg if he starts to feel depressed, sort of as an episodic p.r.n. -patient currently on 2 antipsychotics, including Clozaril and Risperdal; -some TD and pill rolling b/l hand tremor observed; wonder if Risperdal dose could be lowered; consider Ingrezza Of note patient had severely high Triacylglycerides of 898. It appears to have been taken while patient fasting however patient is not sure. TAG this high puts patient at risk for pancreatitis. Will redraw labs tomorrow morning to ensure fasting however for now will treat as if this is an accurate lab Hospital course: 11/18: Continue current management and treatment plan. 11/19: Increase Depakote to 500 mg in AM and continue 1,000 mg HS. 11/20: continue current management and treatment plan. 11/21 Patient has become manic over the past several days. Additional Depakote dose was added but patient remains manic, grandiose, labile and intrusive. 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 Patient at 1 point broke down crying about the of his parents, saying that his mother was murdered but then saying she had a brain bleed.. Patient saying that he is from [place] and is going to go back and live his life and [place]... Initially demanding to be discharged today but was able to be redirected. Patient agrees to increased medications including adding Zyprexa -will hold Wellbutrin; seems likely that increasing Wellbutrin was what triggered manic episode -Increasing bedtime Depakote to 1250 mg -patient hardly slept last night and added Zyprexa 10 mg b.i.d.; plan is to discontinue once jacob subsides -reviewed labs and repeat cholesterol shows highly elevated TAG>500 though not as high as the day before 11/22 Patient did sleep some last night with added Zyprexa. Still manic but a little less intense and though still with some grandiose ideations, much less so. Patient still intrusive to others but redirectable. Patient did agree that he was acting manic yesterday but says he is fine now and wants to discharge. He persisted in demanding for discharge today and expressed frustration when told this is not possible but remained in behavioral control. -Great right toe with cellulitis; started on Keflex -Depakote labs ordered for Wednesday *patient is not stable to return [place] [facility] at this time. Will try to get him to retract his 3 day notice but will otherwise file for civil commitment; that said hopefully will not need to go to court and manic episode will resolve 11/23/24: Patient slept for 2 hours, was medication compliant. Denies side effect but observed have some hand tremors. Restless, racing thoughts, intrusive, poor boundaries, need multiple redirections most of the time to respect personal space. He is over friendly, bright, manic but appeared to be less manic compared to yesterday. Can be perseverative on discharge, redirectable and need to remind that he is not leaving today a couple of times. He retracted 3 day notice. He seems to be forgetful. To PRNs with mild to moderate effects. He works on puzzle, and cleaning up his room. He has an reasonable planning for the future, appeared to be grandiose no aggressive behavior, can be irritable at times when things not the way he requested. Continue to monitor for sleeping pattern. 11/24/24: Slept slightly improved compared to the night before, he was able to slept for 4 hours. Was medication compliant. Mood is I am happy. I am calm and relaxed . Reports foot pain, nursing have patient to put lotion on, encouraged to elevated legs when he resting as left food appear to be slightly swollen. He said he would like to go back to [place] [facility] [place]. He also asked if he can call Carla and Max to apologize to them. Read direct patient not calling so many times that may annoying other persons. He admitted that he need to give them a break . Observe want time he was on the phone, appropriate. He is slightly better compared to yesterday, able to sit still, listen to advice/redirection. Even though he has delusional, and grandiose thoughts. Thinking he see a snake in his toilet, seeing his brother coming to see him. Per nursing he had unwitnessed fall when trying to put himself sitting down on the chair but missed it. Slightly better in term of manic behaviors, redirectable and less demanding. Redirected for personal space. Accepted it without any problems. 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 With much effort, Pt remains able to be redirected; examined great rt toe which remains with clear signs of cellulites -Start Ziprasidone -obtained EKG and qtc WNL -Depakote level with much room so will switch depakote to ER so can make at bedtime to help w/ sleep and will increase dose (Depakote IR 1750mg ~ Dep ER 2000) 11/26 Patient remains manic, intrusive, grandiose, tangential. Patient is intrusive to the point where some peers are getting very angry and some feeling provoked. -So far unable to break this manic episode; so far Zyprexa and Geodon have not affected patient and patient is in danger of unintentionally inciting peer aggression. -Thorazine 100 mg did not help either; will try Thorazine 200 mg t.i.d. combined with diazepam 15 mg t.i.d. (10mg did nothing) -if Thorazine does not help, will consider Haldol; also will soon get Depakote level and maybe able to increase other 11/27 Patient remains manic, grandiose, very intrusive with peers and staff, going into patient's rooms, walking up in into rejection himself, getting very close to people making people both angry and scared. Difficult decisions regarding treatment. Discussed case with Dr. Vázquez who agrees with plan For now, will discontinue Thorazine and Valium as commercial real estate underwriter is somewhat concern that all this sedating medication could add on a delirium to his already manic behaviors. Instead, will try Trileptal to help break manic episode; Trileptal has the least side effect risk profile of options so will give it a try (though not very robust evidence) -Considering Tegretol however this will lower the effective dose of both clozapine and Risperdal by 50% or more creating a confusing treatment regimen; also can affect the liver and bone marrow and patient is already on Depakote and Clozaril -also considering Haldol however patient is already on 2 antipsychotics -also considering Tamoxifen used off-label however increases thrombo embolism risk and can raise the effective doses of clozapine and Risperdal ECT remains the gold standard to treat refractory jacob however patient has a guardian and [place] which would need to be amended 11/28 Patient angry, punching the wall, yelling aggressively, peers is getting scared; 1 peer felt threatened and confronted patient pushed him but both were able to be redirected. Made a threatening remark to staff i'm going to break you... Remains floridly manic, hyperverbal, intrusive... He did say yes to ECT however understands guardian needs to weigh in clinical reasoning: -patient's increasing aggression and agitation seems directly correlated with having had Thorazine and diazepam discontinued. Restarted it for the purpose of patient and milieu safety. However it later came to commercial real estate underwriter's attention that Thorazine is not 1 of the antipsychotics listed on his community [place]..? Options that are available are Abilify and Haldol. Flame Planer lowered Thorazine to 100 mg and allowed for 1 last for tonight, again for milieu and patient safety however will discontinue it and will have to see if the other options are helpful Discussed case with colleague Dr. Meza who continues to agree that using Tegretol would cause too much mixing up of med regimen and that best option is to help patient remain safe while Depakote gets a chance to become therapeutic. Depakote level today 108; will continue with Depakote ER 3000mg and get level tomorrow -talked with Patients guardian Breezy Granados who says he has no objection to patient getting ECT 11/29 Patient for the 1st time since manic episodes started, more subdued today and slept from much of the day. During periods when he was awake, remains manic, intrusive, grandiose and saying bizarre things such as I am hairy potters twin and I need to get back to [facility]. -hopefully this is the sign that patient's manic episode is starting to wane; will continue with Depakote ER 3000 mg and get another level tomorrow (The?therapeutic range for acute jacob is 50?125 mcg/mL) 11/30 Still manic -added Abilfy 10mg daily; would prefer to try Haldol (both on [place]) but since Qtc is elevated will try Abilify first...(as mentioned despite qtc elevation, risk of TdP remains very low and Haldol remains an option. 12/01/24: Patient continued to be manic, intrusive, irritable most of the day, making threats. Making grandiose and paranoid delusional statements I need to go back to [place] to protect Jet Goldy . I am . I am the new president of the country . Patient was naked in the savage asking to talk to high school social science teacher this morning per staffing reports. Patient remains in the group room at the other hallway. Remain on kitchen restriction, limit access to the other end of the savage. Patient compliant with medications, see PRNs for anxiety and agitation, restless, hyperverbal, hyperactive, irritable, needs a lot redirection,incongruent with mood stating that he is happy and have no anxiety or depression. Poor insight and poor judgment. Denies that he has any order diagnosis or mental health issues except for anger disorder VPA level on 11/30/24: 117.9 (The?therapeutic range for acute jacob is 50?125 mcg/mL) 12/02/24: Patient slept for 9 hours last night. Compliant with meds, less irritable and more pleasant today. Continue to delusional and grandiose. He is calmer compare to yesterday. No naked episode. Discontinue Abilify, start Haldol 5mg TID with goal to control manic/psychotic, racing thoughts/behaviors. Some mild drooling which improving per nursing. Lactulose 20mg BID. (Ammnonia level 60H) Discontinue Abilfy. start Haldol 5mg TID. EKG done- no change compare to previous record. Slightly prolong QTc. 12/03/24: Patient slept for 8 hours, compliant with medications,, appeared to have tremors, and drooling which is not worsening. Patient appeared to be sedated this morning with mild irritable mood, sometimes he hearing from his room loudly, but spend more time in his room today. Slightly less intrusive. Continued to be delusional and grandiose. He has loose stool, Colace and MiraLax was held but continue offer lactulose. We will check ammonia level tomorrow. Observe by lateral lower extremity edema. Hospitalist consult placed. Regarding depakote level: The?therapeutic range for acute jacob is 50?125 mcg/mL, and most patients respond within this range?1 https://dailymed.nlm.nih.gov/dailymed/drugInfo.cfm?lbnat=8jf985km-txe8-5684-7dp1 -998c361oocws ?2 https://pubmed.ncbi.nlm.nih.gov/37930296 .? of note, regarding EKG with prolonged Qtc: The incidence of torsades de pointes (TdP) from antipsychotic-induced QTc prolongation is?very low, estimated at?0.01?0.1%?(1?10 per 10,000 exposures) in clinical practice?1 https://pubmed.ncbi.nlm.nih.gov/15039654 ?2 https://pubmed.ncbi.nlm.nih.gov/16152241 . ?[And in the cases where someone did actually get TdP], the case fatality of TdP is also low, with?<10%?of TdP episodes resulting in cardiac , 12/04 Patient is doing better; less manic, less intrusive and resting more.? Still making grandiose delusional statements such as he is running for president with [employer], but certainly symptoms are improving.? He says he is on too much medication and commercial real estate underwriter agrees to review? -Lowered to Diazepam 5mg TID (down from 10mg) -dc Benadryl 25mg TID -has been refusing Lactulose; will recheck Ammonia; if elevated will start LCarnatine 12/05 remains hypomanic and making grandiose statements; continue treatment plan; continues to refuse lactulose. Will get labs 12/06 Still manic/hypomanic; overall more easily redirected and less hyperactive but still can be loud, intrusive and he continues to make grandiose statements saying he is the boss, he owns different things, he was born in different countries....sometimes yelling loudly in frustration...none of which is baseline -commercial real estate underwriter tried reality testing however this frustrated patient who remains with impaired insight to his manic episode increase Haldol to total daily dose of 25mg (up from 15mg) Monitoring Qtc ( QTcB Int : 471 ms on 12/06) Ammonia WNL; will lower Lactulose to 20mg daily (down from BID-has not always taken bedtime dose) 12/07 Patient remains manic/hypomanic; will continue current Haldol dose but may increase soon 12/08 remains manic, intrusive and grandiose; disposal worker came in met with him and find some far from baseline. Patient getting angry or today than previously and yelling angrily in the hallway needing to be frequently redirected as he is causing anxiety in the milieu Will increase Haldol to 10 mg t.i.d. If this does not work, will strongly consider tamoxifen as it will take considerable time to petition the court to add ECT to his community [place] 12/09 Remains manic, intrusive with peers. Yelling very angrily this morning in the shower; pretended the door was locked at 1 point. Sometimes yelling loudly in the hallway and slamming doors. Otherwise comes up to staff and peers, typically making unrelated, grandiose statements. Told commercial real estate underwriter that the police are after him... That we need to find his brother and he could be in [place], [place]... Treatment plan: -patient seems to have regressed some in his progress...(though this is a nuanced observation and the progress alluded to was minimal if even there) For now will continue with Haldol 10 mg t.i.d.. It is difficult to know whether or not Abilify had been helping and that he decompensated a little once it was replaced with Haldol he started decompensating or if nothing has been helpful and his manic symptoms just ebb and flow... -tamoxifen remains an option 12/10 pretty much the same presentation; maybe a little more calm? Difficult to tell. Patient remains intrusive but redirectable. -continue current treatment plan for now; will give a few more days on Haldol to see if patient improves 12/11 Remains manic/hypomanic; maybe easier to redirect but still intrusive; still making bizarre or grandiose statements maybe a little less so. Patient continues to have very angry outburst, slamming doors and hitting the wall, sometimes yelling loudly and aggressively, but again able to be redirected -discussed with staff and since this is that patient may have improved a little bit but not all that much; will continue with Haldol 10 mg t.i.d. but strongly considering switching to Abilify Plan: CV Q 15 minute checks On community [place] ORDER/guardianship Patient is not appropriate for groups or to be in kitchen 1. Jacob Increased Haldol to 10 mg t.i.d. Continue Depakote ER 3000 mg qhs Continue Risperdal 1 mg a.m. and 4 mg q.h.s. Continue Clozaril 400 mg q.h.s.; Level: 403 and Norclozaril 137. DC Thorazine 200mg TID DC Diazpam 10mg TID; will taper and dc once jacob subsides dc Trileptal DC Ziprasidone no effect Dc zyprexa; does not seem to do much HOLD Wellbutrin XL (once jacob resolved likely re-titrate to Wellbutrin 300mg (likely increasing to 450mg triggered manic episode) STARTed Fenobibrate 160mg daily for severely elevated Triacylglycerides of 898 (pt has normal renal function) Continue other home medications -consider Ingrezza -adverse reaction to [facility] (per patient) -consider Tegretol? 2. Great right toe cellulitis Increased to Keflex 500 mg qid for 7 days (discussed increased dose with hospitalist PA) -examined 11/28 and cellulitis is resolving 3. TAG 898 (appears to be fasting)/Cholesterol 319 re-ordered Lipid panel: Trilgyciride 898 down to 581 on 11/18/24. Cholesterol 319 down to 317. AIC 5.5 WNL. Started Fenobibrate 160mg daily (pt has normal renal function) Change diet to Low Fat diet will consider Statin Ordered TSH (lft's WNL): 0.81 WNL Bilateral lower extremity edema Appears euvolemic on exam, encouraged leg elevation. L great toenail fungus We will need outpatient follow up with Podiatry for nail removal Class 3 obesity BMI 36.2 Weight loss encouraged Hypertriglyceridemia/hyperlipidemia Patient started on fenofibrate on November 17 Triglycerides down to 150. LDL cholesterol 124 Encouraged weight loss, encourage healthy food choices. Excessive drooling Seen by speech, swallow function is not a factor in saliva management, and no loss of motor function noted. Continue glycopyrrolate Patient educated on: diagnosis and therapeutic strategies Informed Consent: does not understand Reason for continued inpatient stay Substantial Risk for: inability to function Time Spent With Patient Time: Total time managing care of this patient today ____ minutes.
[2024-12-11 13:32] VITALS: BP 132/78
[2024-12-11 20:58] VITALS: BP 157/82; PULSE 121; RESP 18; TEMP 36.6; O2SAT 97
--- NOTE | 2024-12-12 17:34 | P.PNPSI_ITS ---
Subjective Subjective Date of Service: 12/12/24 Reason For Visit: Depressive D/O Schizoaffective Interim History: Met with patient; discussed with team Patient reports that he has been feeling more stiff and also that Haldol has been giving him nightmares. Internet Retailer discussed this and discussed changing medications to Abilify. Patient agreed with this plan. Also agreed with artane/Trihexyphenidyl for stiffness, likely due to side effect of medication, since patient is allergic to Cogentin (though not clear what allergy is) Mental Status Exam Mental Status Exam Narrative: Pt is alert and oriented; behavior is manic/hypomanic, and can be loud and angry; still hyperverbal 9maybe not as intense); still intrusive with peers but more easily redirectable; patient is not in distress; dressed in casual attire, unkempt; bilateral hand tremor; aggregate hygiene; mood is described as good and affect less expansive; eye contact appropriate; Speech verbose but not pressured and not really rambling; intermittent psychomotor agitation present; thought process can be goal oriented, but also tangential; Thought content remains with grandiose delusions; denies any SI/HI. Denies AVH Patients insight and judgment impaired Diagnostics Vital Signs (24Hr): Vital Signs - 24 hr 12/11/24 20:58 Temperature 97.9 F Pulse Rate 121 H Respiratory Rate 18 Blood Pressure 157/82 H Pulse Oximetry 97 Oxygen Delivery Method Room Air BMI result Body Mass Index 34.2 Labs 11/28/24 10:37 Medications Medications Current Medications Acetaminophen (Acetaminophen 325 Mg Tablet) 650 mg PO Q6H PRN PRN Reason: Headache/Pain, Scale 1-10 Last Admin: 12/09/24 16:30 Dose: 650 mg Al Hydroxide/Mg Hydroxide (Magnesium Hydrox/Alum Hydrox 30 Ml Oral.Susp) 30 ml PO Q6H PRN PRN Reason: Heartburn/Nausea Last Admin: 11/21/24 01:55 Dose: 30 ml Aripiprazole (Aripiprazole 20 Mg Tablet) 20 mg PO DAILY [facility] Last Admin: 12/12/24 13:14 Dose: 20 mg Benzocaine (Throat Lozenge, Medicated Lozenge) 1 lozenge MUCOUS MEM Q2H PRN PRN Reason: Sore Throat Last Admin: 12/10/24 14:21 Dose: 1 lozenge Capsaicin (Capsaicin 0.025% Cream 60 Gm Tube) 1 appl TOPICAL TID PRN; Protocol PRN Reason: leg pain Last Admin: 12/10/24 13:12 Dose: 1 appl Clonidine HCl (Clonidine Hcl 0.1 Mg Tablet) 0.1 mg PO Q4H PRN; Protocol PRN Reason: moderate anxiety Last Admin: 12/11/24 13:32 Dose: 0.1 mg Clozapine (Clozapine 100 Mg Tablet) 400 mg PO BEDTIME ST[facility] Last Admin: 12/11/24 20:45 Dose: 400 mg Diazepam (Diazepam 5 Mg Tablet) 5 mg PO TID [facility] Last Admin: 12/12/24 16:20 Dose: 5 mg Diphenhydramine HCl (Diphenhydramine Hcl 25 Mg Capsule) 25 mg PO TID [facility] On Hold: 12/04/24 22:11 Last Admin: 12/04/24 22:16 Dose: 25 mg Divalproex Sodium (Divalproex Sodium Er 500 Mg Tab.Er.24h) 3,000 mg PO BEDTIME [facility] Last Admin: 12/11/24 20:46 Dose: 3,000 mg Docusate Sodium (Docusate Sodium 100 Mg Capsule) 100 mg PO BID [facility] Last Admin: 12/12/24 09:51 Dose: 100 mg Fenofibrate (Fenofibrate 160 Mg Tablet) 160 mg PO DAILY [facility] Last Admin: 12/12/24 09:51 Dose: 160 mg Fluticasone Propionate (Fluticasone Propionate Nasal 16 Gm Baldwin) 1 spray NOSTRIL-B BEDTIME [facility] Last Admin: 12/11/24 20:47 Dose: 1 spray Fluticasone Propionate (Fluticasone Propionate Nasal 16 Gm Baldwin) 1 spray NOSTRIL-B DAILY PRN PRN Reason: Nasal allergy Last Admin: 11/24/24 06:25 Dose: 1 spray Glycopyrrolate (Glycopyrrolate 1 Mg Tablet) 1 mg PO TID [facility] Last Admin: 12/12/24 16:20 Dose: 1 mg Ibuprofen (Ibuprofen 400 Mg Tablet) 400 mg PO Q6H PRN PRN Reason: Pain, Moderate(Pain Scale 4-6) Last Admin: 12/12/24 13:14 Dose: 400 mg Lactulose (Lactulose 20 Gm/30 Ml Solution) 20 gm PO DAILY [facility] On Hold: 12/10/24 08:55 Last Admin: 12/10/24 08:39 Dose: 20 gm Lorazepam (Lorazepam 1 Mg Tablet) 1 mg PO Q8H PRN PRN Reason: Anxiety Last Admin: 12/12/24 13:14 Dose: 1 mg Magnesium Hydroxide (Milk Of Magnesia 30 Ml Oral.Susp) 30 ml PO DAILY PRN PRN Reason: Constipation Last Admin: 11/28/24 14:32 Dose: 30 ml Nicotine (Nicotine 21 Mg Patch.Td24) 21 mg TRANSDERMA DAILY PRN PRN Reason: smoking cessation Last Admin: 11/25/24 08:46 Dose: 21 mg Nicotine Polacrilex (Nicotine Polacrilex 2 Mg Gum) 4 mg BUCCAL Q2H PRN PRN Reason: Nicotine Cravings Last Admin: 12/04/24 05:43 Dose: 4 mg Ondansetron HCl (Ondansetron Odt 4 Mg Tab.Rapdis) 4 mg TRANSLINGU Q6H PRN PRN Reason: Nausea and Vomiting Last Admin: 11/28/24 16:14 Dose: 4 mg Polyethylene Glycol (Polyethylene Glycol 3350 17 Gm Powd.Pack) 17 gm PO DAILY [facility] On Hold: 12/04/24 10:12 Last Admin: 12/04/24 10:07 Dose: Not Given Polyethylene Glycol (Polyethylene Glycol 3350 17 Gm Powd.Pack) 17 gm PO DAILY PRN PRN Reason: Constipation Last Admin: 11/28/24 16:16 Dose: 17 gm Risperidone (Risperidone 2 Mg Tablet) 4 mg PO BEDTIME [facility]ART Last Admin: 12/11/24 20:49 Dose: 4 mg Risperidone (Risperidone 1 Mg Tablet) 1 mg PO DAILY [facility] Last Admin: 12/12/24 09:51 Dose: 1 mg Trazodone HCl (Trazodone Hcl 50 Mg Tablet) 50 mg PO BEDTIME MRX1 PRN PRN Reason: Insomnia Last Admin: 12/02/24 20:49 Dose: 50 mg Trihexyphenidyl HCl (Trihexyphenidyl Hcl 2 Mg Tablet) 1 mg PO TID [facility]ART Last Admin: 12/12/24 16:20 Dose: 1 mg Allergies Allergies Allergy/AdvReac Type Severity Reaction Status Date / Time benztropine (From COGENTIN) Allergy Unknown UNKNOWN Verified 11/16/24 15:51 propranolol (From INDERAL LA) Allergy Unknown UNKNOWN Verified 11/16/24 15:51 chaste tree Allergy Unknown Verified 11/16/24 15:51 lithium Allergy Unknown Verified 11/16/24 15:51 Assessment & Plan Assessment & Plan (1) Schizoaffective disorder, bipolar type: Status: Acute Code(s): F25.0 - Schizoaffective disorder, bipolar type (2) Bilateral edema of lower extremity: Status: Acute Code(s): R60.0 - Localized edema (3) Autism spectrum disorder: Status: Acute Code(s): F84.0 - Autistic disorder (4) Cellulitis: Status: Acute Code(s): L03.90 - Cellulitis, unspecified (5) Class 3 obesity: Status: Acute Code(s): E66.813 - Obesity, class 3 Plan Patient is a 34-year-old male with history of schizoaffective disorder bipolar type, Autism Spectrum Disorder, who lives in a fci, on a [employer] Vela who presents for depression. Patient reports that every 7 weeks (and every 4 months) medications don't work...and I feel depressed.... He says the the depression last anywhere from 2 to 12 days.. And then resolves on it's own without medication changes. Patient reports that he had suicidal ideation a few days ago, no plan but does not now. Patient says sometimes he hears sounds or voices that others do not hear, sometimes laughing noise but not very often and usually just during sleep. Discussed medication regimen and patient said that recently his Depakote was increased because he was having mood swings but it was difficult for him to give details. Discussed medication options and patient agrees to increase Wellbutrin to 450 mg. Formulation/clinical reasoning: Patient reports that episodically he still gets bouts of depression that can last for longer than a week however this seemed to resolve on their own. He is not sure what triggers them. Patient says he is already feeling better now that he is on the unit because of the friendships and interactions he has made since coming to the unit; patient signed a 3 day notice. Discussed medication options and patient agrees to increase Wellbutrin to 450 mg. Internet Retailer wonders if perhaps patient can remain at Wellbutrin 300 mg and just take the extra 150 mg if he starts to feel depressed, sort of as an episodic p.r.n. -patient currently on 2 antipsychotics, including Clozaril and Risperdal; -some TD and pill rolling b/l hand tremor observed; wonder if Risperdal dose could be lowered; consider Aristeo Of note patient had severely high Triacylglycerides of 898. It appears to have been taken while patient fasting however patient is not sure. TAG this high puts patient at risk for pancreatitis. Will redraw labs tomorrow morning to ensure fasting however for now will treat as if this is an accurate lab Hospital course: 11/18: Continue current management and treatment plan. 11/19: Increase Depakote to 500 mg in AM and continue 1,000 mg HS. 11/20: continue current management and treatment plan. 11/21 Patient has become manic over the past several days. Additional Depakote dose was added but patient remains manic, grandiose, labile and intrusive. 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 Patient at 1 point broke down crying about the of his parents, saying that his mother was murdered but then saying she had a brain bleed.. Patient saying that he is from [place] and is going to go back and live his life and [place]... Initially demanding to be discharged today but was able to be redirected. Patient agrees to increased medications including adding Zyprexa -will hold Wellbutrin; seems likely that increasing Wellbutrin was what triggered manic episode -Increasing bedtime Depakote to 1250 mg -patient hardly slept last night and added Zyprexa 10 mg b.i.d.; plan is to discontinue once jacob subsides -reviewed labs and repeat cholesterol shows highly elevated TAG>500 though not as high as the day before 11/22 Patient did sleep some last night with added Zyprexa. Still manic but a little less intense and though still with some grandiose ideations, much less so. Patient still intrusive to others but redirectable. Patient did agree that he was acting manic yesterday but says he is fine now and wants to discharge. He persisted in demanding for discharge today and expressed frustration when told this is not possible but remained in behavioral control. -Great right toe with cellulitis; started on Keflex -Depakote labs ordered for Wednesday *patient is not stable to return to fci at this time. Will try to get him to retract his 3 day notice but will otherwise file for civil commitment; that said hopefully will not need to go to court and manic episode will resolve 11/23/24: Patient slept for 2 hours, was medication compliant. Denies side effect but observed have some hand tremors. Restless, racing thoughts, intrusive, poor boundaries, need multiple redirections most of the time to respect personal space. He is over friendly, bright, manic but appeared to be less manic compared to yesterday. Can be perseverative on discharge, redirectable and need to remind that he is not leaving today a couple of times. He retracted 3 day notice. He seems to be forgetful. To PRNs with mild to moderate effects. He works on puzzle, and cleaning up his room. He has an reasonable planning for the future, appeared to be grandiose no aggressive behavior, can be irritable at times when things not the way he requested. Continue to monitor for sleeping pattern. 11/24/24: Slept slightly improved compared to the night before, he was able to slept for 4 hours. Was medication compliant. Mood is I am happy. I am calm and relaxed . Reports foot pain, nursing have patient to put lotion on, encouraged to elevated legs when he resting as left food appear to be slightly swollen. He said he would like to go back to his fci. He also asked if he can call Carla and Max to apologize to them. Read direct patient not calling so many times that may annoying other persons. He admitted that he need to give them a break . Observe want time he was on the phone, appropriate. He is slightly better compared to yesterday, able to sit still, listen to advice/redirection. Even though he has delusional, and grandiose thoughts. Thinking he see a snake in his toilet, seeing his brother coming to see him. Per nursing he had unwitnessed fall when trying to put himself sitting down on the chair but missed it. Slightly better in term of manic behaviors, redirectable and less demanding. Redirected for personal space. Accepted it without any problems. 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 With much effort, Pt remains able to be redirected; examined great rt toe which remains with clear signs of cellulites -Start Ziprasidone -obtained EKG and qtc WNL -Depakote level with much room so will switch depakote to ER so can make at bedtime to help w/ sleep and will increase dose (Depakote IR 1750mg ~ Dep ER 2000) 11/26 Patient remains manic, intrusive, grandiose, tangential. Patient is intrusive to the point where some peers are getting very angry and some feeling provoked. -So far unable to break this manic episode; so far Zyprexa and Geodon have not affected patient and patient is in danger of unintentionally inciting peer aggression. -Thorazine 100 mg did not help either; will try Thorazine 200 mg t.i.d. combined with diazepam 15 mg t.i.d. (10mg did nothing) -if Thorazine does not help, will consider Haldol; also will soon get Depakote level and maybe able to increase other 11/27 Patient remains manic, grandiose, very intrusive with peers and staff, going into patient's rooms, walking up in into rejection himself, getting very close to people making people both angry and scared. Difficult decisions regarding treatment. Discussed case with Dr. Vázquez who agrees with plan For now, will discontinue Thorazine and Valium as engineering technical writer is somewhat concern that all this sedating medication could add on a delirium to his already manic behaviors. Instead, will try Trileptal to help break manic episode; Trileptal has the least side effect risk profile of options so will give it a try (though not very robust evidence) -Considering Tegretol however this will lower the effective dose of both clozapine and Risperdal by 50% or more creating a confusing treatment regimen; also can affect the liver and bone marrow and patient is already on Depakote and Clozaril -also considering Haldol however patient is already on 2 antipsychotics -also considering Tamoxifen used off-label however increases thrombo embolism risk and can raise the effective doses of clozapine and Risperdal ECT remains the gold standard to treat refractory jacob however patient has a guardian and Vela which would need to be amended 11/28 Patient angry, punching the wall, yelling aggressively, peers is getting scared; 1 peer felt threatened and confronted patient pushed him but both were able to be redirected. Made a threatening remark to staff i'm going to break you... Remains floridly manic, hyperverbal, intrusive... He did say yes to ECT however understands guardian needs to weigh in clinical reasoning: -patient's increasing aggression and agitation seems directly correlated with having had Thorazine and diazepam discontinued. Restarted it for the purpose of patient and milieu safety. However it later came to engineering technical writer's attention that Thorazine is not 1 of the antipsychotics listed on his community Vela..? Options that are available are Abilify and Haldol. Internet Retailer lowered Thorazine to 100 mg and allowed for 1 last for tonight, again for milieu and patient safety however will discontinue it and will have to see if the other options are helpful Discussed case with colleague Dr. Meza who continues to agree that using Tegretol would cause too much mixing up of med regimen and that best option is to help patient remain safe while Depakote gets a chance to become therapeutic. Depakote level today 108; will continue with Depakote ER 3000mg and get level tomorrow -talked with Patients guardian Breezy Granados who says he has no objection to patient getting ECT 11/29 Patient for the 1st time since manic episodes started, more subdued today and slept from much of the day. During periods when he was awake, remains manic, intrusive, grandiose and saying bizarre things such as I am hairy potters twin and I need to get back to [facility]. -hopefully this is the sign that patient's manic episode is starting to wane; will continue with Depakote ER 3000 mg and get another level tomorrow (The?therapeutic range for acute jacob is 50?125 mcg/mL) 11/30 Still manic -added Abilfy 10mg daily; would prefer to try Haldol (both on Vela) but since Qtc is elevated will try Abilify first...(as mentioned despite qtc elevation, risk of TdP remains very low and Haldol remains an option. 12/01/24: Patient continued to be manic, intrusive, irritable most of the day, making threats. Making grandiose and paranoid delusional statements I need to go back to [place] to protect Jet Goldy . I am . I am the new president of the country . Patient was naked in the savage asking to talk to manager social media this morning per staffing reports. Patient remains in the group room at the other hallway. Remain on kitchen restriction, limit access to the other end of the savage. Patient compliant with medications, see PRNs for anxiety and agitation, restless, hyperverbal, hyperactive, irritable, needs a lot redirection,incongruent with mood stating that he is happy and have no anxiety or depression. Poor insight and poor judgment. Denies that he has any order diagnosis or mental health issues except for anger disorder VPA level on 11/30/24: 117.9 (The?therapeutic range for acute jacob is 50?125 mcg/mL) 12/02/24: Patient slept for 9 hours last night. Compliant with meds, less irritable and more pleasant today. Continue to delusional and grandiose. He is calmer compare to yesterday. No naked episode. Discontinue Abilify, start Haldol 5mg TID with goal to control manic/psychotic, racing thoughts/behaviors. Some mild drooling which improving per nursing. Lactulose 20mg BID. (Ammnonia level 60H) Discontinue Abilfy. start Haldol 5mg TID. EKG done- no change compare to previous record. Slightly prolong QTc. 12/03/24: Patient slept for 8 hours, compliant with medications,, appeared to have tremors, and drooling which is not worsening. Patient appeared to be sedated this morning with mild irritable mood, sometimes he hearing from his room loudly, but spend more time in his room today. Slightly less intrusive. Continued to be delusional and grandiose. He has loose stool, Colace and MiraLax was held but continue offer lactulose. We will check ammonia level tomorrow. Observe by lateral lower extremity edema. Hospitalist consult placed. Regarding depakote level: The?therapeutic range for acute jacob is 50?125 mcg/mL, and most patients respond within this range?1 https://dailymed.nlm.nih.gov/dailymed/drugInfo.cfm?rputq=5ep561wh-jyx7-5380-3fr5 -050o123wrvot ?2 https://pubmed.ncbi.nlm.nih.gov/92122858 .? of note, regarding EKG with prolonged Qtc: The incidence of torsades de pointes (TdP) from antipsychotic-induced QTc prolongation is?very low, estimated at?0.01?0.1%?(1?10 per 10,000 exposures) in clinical practice?1 https://pubmed.ncbi.nlm.nih.gov/66765871 ?2 https://pubmed.ncbi.nlm.nih.gov/08243026 . ?[And in the cases where someone did actually get TdP], the case fatality of TdP is also low, with?<10%?of TdP episodes resulting in cardiac , 12/04 Patient is doing better; less manic, less intrusive and resting more.? Still making grandiose delusional statements such as he is running for president with [employer], but certainly symptoms are improving.? He says he is on too much medication and engineering technical writer agrees to review? -Lowered to Diazepam 5mg TID (down from 10mg) -dc Benadryl 25mg TID -has been refusing Lactulose; will recheck Ammonia; if elevated will start LCarnatine 12/05 remains hypomanic and making grandiose statements; continue treatment plan; continues to refuse lactulose. Will get labs 12/06 Still manic/hypomanic; overall more easily redirected and less hyperactive but still can be loud, intrusive and he continues to make grandiose statements saying he is the boss, he owns different things, he was born in different countries....sometimes yelling loudly in frustration...none of which is baseline -engineering technical writer tried reality testing however this frustrated patient who remains with impaired insight to his manic episode increase Haldol to total daily dose of 25mg (up from 15mg) Monitoring Qtc ( QTcB Int : 471 ms on 12/06) Ammonia WNL; will lower Lactulose to 20mg daily (down from BID-has not always taken bedtime dose) 12/07 Patient remains manic/hypomanic; will continue current Haldol dose but may increase soon 12/08 remains manic, intrusive and grandiose; script worker came in met with him and find some far from baseline. Patient getting angry or today than previously and yelling angrily in the hallway needing to be frequently redirected as he is causing anxiety in the milieu Will increase Haldol to 10 mg t.i.d. If this does not work, will strongly consider tamoxifen as it will take considerable time to petition the court to add ECT to his community [place]ane 12/09 Remains manic, intrusive with peers. Yelling very angrily this morning in the shower; pretended the door was locked at 1 point. Sometimes yelling loudly in the hallway and slamming doors. Otherwise comes up to staff and peers, typically making unrelated, grandiose statements. Told engineering technical writer that the police are after him... That we need to find his brother and he could be in [place], [place]... Treatment plan: -patient seems to have regressed some in his progress...(though this is a nuanced observation and the progress alluded to was minimal if even there) For now will continue with Haldol 10 mg t.i.d.. It is difficult to know whether or not Abilify had been helping and that he decompensated a little once it was replaced with Haldol he started decompensating or if nothing has been helpful and his manic symptoms just ebb and flow... -tamoxifen remains an option 12/10 pretty much the same presentation; maybe a little more calm? Difficult to tell. Patient remains intrusive but redirectable. -continue current treatment plan for now; will give a few more days on Haldol to see if patient improves 12/11 Remains manic/hypomanic; maybe easier to redirect but still intrusive; still making bizarre or grandiose statements maybe a little less so. Patient continues to have very angry outburst, slamming doors and hitting the wall, sometimes yelling loudly and aggressively, but again able to be redirected -discussed with staff and since this is that patient may have improved a little bit but not all that much; will continue with Haldol 10 mg t.i.d. but strongly considering switching to Abilify 12/12 Patient reports that he has been feeling more stiff and also that Haldol has been giving him nightmares. Internet Retailer discussed this and discussed changing medications to Abilify. Patient agreed with this plan. Also agreed with artane/Trihexyphenidyl for stiffness, likely due to side effect of medication, since patient is allergic to Cogentin (though not clear what allergy is) -will discontinue Haldol and start Abilify; after 5 days of Haldol 10 mg t.i.d., patient's jacob has not really improved. Haldol is also potentially causing patient nightmares and maybe some increased stiffness and has increased risk for prolonged QTC. Abilify was tried in the past but it was a very brief trial so will restart now -engineering technical writer [facility]; even if we are gabriel and patient's jacob resolves with medication management, ECT would have likely resolved this weeks ago and patient will benefit from having ECT listed as a potential treatment Plan: CV Q 15 minute checks On [facility] ORDER/guardianship Patient is not appropriate for groups or to be in kitchen 1. Jacob DC Haldol (Haldol 10 mg t.i.d. for 5 days with very minimal effect) Start Abilify 20 mg; will titrate start artane/Trihexyphenidyl 1mg bid for increased stiffness, likely medication side effects; patient has a recorded allergy to Cogentin Continue Depakote ER 3000 mg qhs Continue Risperdal 1 mg a.m. and 4 mg q.h.s. Continue Clozaril 400 mg q.h.s.; Level: 403 and Norclozaril 137. DC Thorazine 200mg TID DC Diazpam 10mg TID; will taper and dc once jacob subsides dc Trileptal DC Ziprasidone no effect Dc zyprexa; does not seem to do much HOLD Wellbutrin XL (once jacob resolved likely re-titrate to Wellbutrin 300mg (likely increasing to 450mg triggered manic episode) STARTed Fenobibrate 160mg daily for severely elevated Triacylglycerides of 898 (pt has normal renal function) Continue other home medications -consider Ingrezza -adverse reaction to [place] (per patient) -consider Tegretol? 2. Great right toe cellulitis Increased to Keflex 500 mg qid for 7 days (discussed increased dose with hospitalist MARIA T) -examined 11/28 and cellulitis is resolving 3. TAG 898 (appears to be fasting)/Cholesterol 319 re-ordered Lipid panel: Trilgyciride 898 down to 581 on 11/18/24. Cholesterol 319 down to 317. AIC 5.5 WNL. Started Fenobibrate 160mg daily (pt has normal renal function) Change diet to Low Fat diet will consider Statin Ordered TSH (lft's WNL): 0.81 WNL Bilateral lower extremity edema Appears euvolemic on exam, encouraged leg elevation. L great toenail fungus We will need outpatient follow up with Podiatry for nail removal Class 3 obesity BMI 36.2 Weight loss encouraged Hypertriglyceridemia/hyperlipidemia Patient started on fenofibrate on November 17 Triglycerides down to 150. LDL cholesterol 124 Encouraged weight loss, encourage healthy food choices. Excessive drooling Seen by speech, swallow function is not a factor in saliva management, and no loss of motor function noted. Continue glycopyrrolate Patient educated on: diagnosis, medication risk/benefits and therapeutic strategies Informed Consent: understands, does not understand and further education needed Reason for continued inpatient stay Substantial Risk for: inability to function Time Spent With Patient Time: Total time managing care of this patient today ____ minutes.
[2024-12-12 20:48] VITALS: BP 153/90; PULSE 119; RESP 16; TEMP 36.8; O2SAT 97
[2024-12-13 09:11] VITALS: BP 152/85; PULSE 122; TEMP 35.9; O2SAT 97
[2024-12-13 20:00] VITALS: BP 145/82; PULSE 109; RESP 16; TEMP 36.3; O2SAT 97
--- NOTE | 2024-12-13 21:37 | P.PNPSI_ITS ---
Subjective Subjective Date of Service: 12/13/24 Reason For Visit: Depressive D/O Schizoaffective Interim History: met with pt; discussed with team pt with same presentation; maybe a little less manic; less grandiose (but still there), little easier to redirect but still angry yelling episodes, intrusive.. Mental Status Exam Mental Status Exam Narrative: Pt is alert and oriented; behavior is manic/hypomanic, and can be loud and angry; still hyperverbal maybe not as intense); still intrusive with peers but more easily redirectable; patient is not in distress; dressed in casual attire, unkempt; bilateral hand tremor; aggregate hygiene; mood is described as good and affect less expansive; eye contact appropriate; Speech verbose but not pressured and not really rambling; intermittent psychomotor agitation present; thought process can be goal oriented, but also tangential; Thought content remains with grandiose delusions; denies any SI/HI. Denies AVH Patients insight and judgment impaired Diagnostics Vital Signs (24Hr): Vital Signs - 24 hr 12/13/24 09:11 Temperature 96.6 F L Pulse Rate 122 H Blood Pressure 152/85 H Pulse Oximetry 97 Oxygen Delivery Method Room Air BMI result Body Mass Index 34.2 Labs 11/28/24 10:37 Medications Medications Current Medications Acetaminophen (Acetaminophen 325 Mg Tablet) 650 mg PO Q6H PRN PRN Reason: Headache/Pain, Scale 1-10 Last Admin: 12/09/24 16:30 Dose: 650 mg Al Hydroxide/Mg Hydroxide (Magnesium Hydrox/Alum Hydrox 30 Ml Oral.Susp) 30 ml PO Q6H PRN PRN Reason: Heartburn/Nausea Last Admin: 11/21/24 01:55 Dose: 30 ml Aripiprazole (Aripiprazole 30 Mg Tablet) 30 mg PO DAILY [facility] Benzocaine (Throat Lozenge, Medicated Lozenge) 1 lozenge MUCOUS MEM Q2H PRN PRN Reason: Sore Throat Last Admin: 12/10/24 14:21 Dose: 1 lozenge Capsaicin (Capsaicin 0.025% Cream 60 Gm Tube) 1 appl TOPICAL TID PRN; Protocol PRN Reason: leg pain Last Admin: 12/10/24 13:12 Dose: 1 appl Clonidine HCl (Clonidine Hcl 0.1 Mg Tablet) 0.1 mg PO Q4H PRN; Protocol PRN Reason: moderate anxiety Last Admin: 12/11/24 13:32 Dose: 0.1 mg Clozapine (Clozapine 100 Mg Tablet) 400 mg PO BEDTIME [facility] Last Admin: 12/13/24 21:10 Dose: 400 mg Diazepam (Diazepam 5 Mg Tablet) 5 mg PO TID [facility] Last Admin: 12/13/24 21:12 Dose: 5 mg Diphenhydramine HCl (Diphenhydramine Hcl 25 Mg Capsule) 25 mg PO TID [facility] On Hold: 12/04/24 22:11 Last Admin: 12/04/24 22:16 Dose: 25 mg Divalproex Sodium (Divalproex Sodium Er 500 Mg Tab.Er.24h) 3,000 mg PO BEDTIME [facility] Last Admin: 12/13/24 21:11 Dose: 3,000 mg Docusate Sodium (Docusate Sodium 100 Mg Capsule) 100 mg PO BID [facility] Last Admin: 12/13/24 21:13 Dose: 100 mg Fenofibrate (Fenofibrate 160 Mg Tablet) 160 mg PO DAILY [facility] Last Admin: 12/13/24 08:38 Dose: 160 mg Fluticasone Propionate (Fluticasone Propionate Nasal 16 Gm [place]) 1 spray NOSTRIL-B BEDTIME [facility] Last Admin: 12/12/24 20:39 Dose: 1 spray Fluticasone Propionate (Fluticasone Propionate Nasal 16 Gm [place]) 1 spray NOSTRIL-B DAILY PRN PRN Reason: Nasal allergy Last Admin: 11/24/24 06:25 Dose: 1 spray Glycopyrrolate (Glycopyrrolate 1 Mg Tablet) 1 mg PO TID [facility] Last Admin: 12/13/24 21:13 Dose: 1 mg Ibuprofen (Ibuprofen 400 Mg Tablet) 400 mg PO Q6H PRN PRN Reason: Pain, Moderate(Pain Scale 4-6) Last Admin: 12/12/24 13:14 Dose: 400 mg Lactulose (Lactulose 20 Gm/30 Ml Solution) 20 gm PO DAILY [facility] On Hold: 12/10/24 08:55 Last Admin: 12/10/24 08:39 Dose: 20 gm Lorazepam (Lorazepam 1 Mg Tablet) 1 mg PO Q8H PRN PRN Reason: Anxiety Last Admin: 12/12/24 13:14 Dose: 1 mg Magnesium Hydroxide (Milk Of Magnesia 30 Ml Oral.Susp) 30 ml PO DAILY PRN PRN Reason: Constipation Last Admin: 11/28/24 14:32 Dose: 30 ml Nicotine (Nicotine 21 Mg Patch.Td24) 21 mg TRANSDERMA DAILY PRN PRN Reason: smoking cessation Last Admin: 11/25/24 08:46 Dose: 21 mg Nicotine Polacrilex (Nicotine Polacrilex 2 Mg Gum) 4 mg BUCCAL Q2H PRN PRN Reason: Nicotine Cravings Last Admin: 12/04/24 05:43 Dose: 4 mg Ondansetron HCl (Ondansetron Odt 4 Mg Tab.Rapdis) 4 mg TRANSLINGU Q6H PRN PRN Reason: Nausea and Vomiting Last Admin: 11/28/24 16:14 Dose: 4 mg Polyethylene Glycol (Polyethylene Glycol 3350 17 Gm Powd.Pack) 17 gm PO DAILY [facility] On Hold: 12/04/24 10:12 Last Admin: 12/04/24 10:07 Dose: Not Given Polyethylene Glycol (Polyethylene Glycol 3350 17 Gm Powd.Pack) 17 gm PO DAILY PRN PRN Reason: Constipation Last Admin: 11/28/24 16:16 Dose: 17 gm Risperidone (Risperidone 2 Mg Tablet) 4 mg PO BEDTIME [facility] Last Admin: 12/13/24 21:11 Dose: 4 mg Risperidone (Risperidone 1 Mg Tablet) 1 mg PO DAILY [facility] Last Admin: 12/13/24 08:38 Dose: 1 mg Trazodone HCl (Trazodone Hcl 50 Mg Tablet) 50 mg PO BEDTIME MRX1 PRN PRN Reason: Insomnia Last Admin: 12/02/24 20:49 Dose: 50 mg Trihexyphenidyl HCl (Trihexyphenidyl Hcl 2 Mg Tablet) 1 mg PO TID [facility] Last Admin: 12/13/24 21:12 Dose: 1 mg Allergies Allergies Allergy/AdvReac Type Severity Reaction Status Date / Time benztropine (From COGENTIN) Allergy Unknown UNKNOWN Verified 11/16/24 15:51 propranolol (From INDERAL [place]) Allergy Unknown UNKNOWN Verified 11/16/24 15:51 chaste tree Allergy Unknown Verified 11/16/24 15:51 lithium Allergy Unknown Verified 11/16/24 15:51 Assessment & Plan Assessment & Plan (1) Schizoaffective disorder, bipolar type: Status: Acute Code(s): F25.0 - Schizoaffective disorder, bipolar type (2) Bilateral edema of lower extremity: Status: Acute Code(s): R60.0 - Localized edema (3) Autism spectrum disorder: Status: Acute Code(s): F84.0 - Autistic disorder (4) Cellulitis: Status: Acute Code(s): L03.90 - Cellulitis, unspecified (5) Class 3 obesity: Status: Acute Code(s): E66.813 - Obesity, class 3 Plan Patient is a 34-year-old male with history of schizoaffective disorder bipolar type, Autism Spectrum Disorder, who lives in a custodial, on a [facility] who presents for depression. Patient reports that every 7 weeks (and every 4 months) medications don't work...and I feel depressed.... He says the the depression last anywhere from 2 to 12 days.. And then resolves on it's own without medication changes. Patient reports that he had suicidal ideation a few days ago, no plan but does not now. Patient says sometimes he hears sounds or voices that others do not hear, sometimes laughing noise but not very often and usually just during sleep. Discussed medication regimen and patient said that recently his Depakote was increased because he was having mood swings but it was difficult for him to give details. Discussed medication options and patient agrees to increase Wellbutrin to 450 mg. Formulation/clinical reasoning: Patient reports that episodically he still gets bouts of depression that can last for longer than a week however this seemed to resolve on their own. He is not sure what triggers them. Patient says he is already feeling better now that he is on the unit because of the friendships and interactions he has made since coming to the unit; patient signed a 3 day notice. Discussed medication options and patient agrees to increase Wellbutrin to 450 mg. Fitter Placer wonders if perhaps patient can remain at Wellbutrin 300 mg and just take the extra 150 mg if he starts to feel depressed, sort of as an episodic p.r.n. -patient currently on 2 antipsychotics, including Clozaril and Risperdal; -some TD and pill rolling b/l hand tremor observed; wonder if Risperdal dose could be lowered; consider Ingrezza Of note patient had severely high Triacylglycerides of 898. It appears to have been taken while patient fasting however patient is not sure. TAG this high puts patient at risk for pancreatitis. Will redraw labs tomorrow morning to ensure fasting however for now will treat as if this is an accurate lab Hospital course: 11/18: Continue current management and treatment plan. 11/19: Increase Depakote to 500 mg in AM and continue 1,000 mg HS. 11/20: continue current management and treatment plan. 11/21 Patient has become manic over the past several days. Additional Depakote dose was added but patient remains manic, grandiose, labile and intrusive. 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 Patient at 1 point broke down crying about the of his parents, saying that his mother was murdered but then saying she had a brain bleed.. Patient saying that he is from [place] and is going to go back and live his life and [place]... Initially demanding to be discharged today but was able to be redirected. Patient agrees to increased medications including adding Zyprexa -will hold Wellbutrin; seems likely that increasing Wellbutrin was what triggered manic episode -Increasing bedtime Depakote to 1250 mg -patient hardly slept last night and added Zyprexa 10 mg b.i.d.; plan is to discontinue once jacob subsides -reviewed labs and repeat cholesterol shows highly elevated TAG>500 though not as high as the day before 11/22 Patient did sleep some last night with added Zyprexa. Still manic but a little less intense and though still with some grandiose ideations, much less so. Patient still intrusive to others but redirectable. Patient did agree that he was acting manic yesterday but says he is fine now and wants to discharge. He persisted in demanding for discharge today and expressed frustration when told this is not possible but remained in behavioral control. -Great right toe with cellulitis; started on Keflex -Depakote labs ordered for Wednesday *patient is not stable to return to custodial at this time. Will try to get him to retract his 3 day notice but will otherwise file for civil commitment; that said hopefully will not need to go to court and manic episode will resolve 11/23/24: Patient slept for 2 hours, was medication compliant. Denies side effect but observed have some hand tremors. Restless, racing thoughts, intrusive, poor boundaries, need multiple redirections most of the time to respect personal space. He is over friendly, bright, manic but appeared to be less manic compared to yesterday. Can be perseverative on discharge, redirectable and need to remind that he is not leaving today a couple of times. He retracted 3 day notice. He seems to be forgetful. To PRNs with mild to moderate effects. He works on puzzle, and cleaning up his room. He has an reasonable planning for the future, appeared to be grandiose no aggressive behavior, can be irritable at times when things not the way he requested. Continue to monitor for sleeping pattern. 11/24/24: Slept slightly improved compared to the night before, he was able to slept for 4 hours. Was medication compliant. Mood is I am happy. I am calm and relaxed . Reports foot pain, nursing have patient to put lotion on, encouraged to elevated legs when he resting as left food appear to be slightly swollen. He said he would like to go back to his custodial. He also asked if he can call Carla and Max to apologize to them. Read direct patient not calling so many times that may annoying other persons. He admitted that he need to give them a break . Observe want time he was on the phone, appropriate. He is slightly better compared to yesterday, able to sit still, listen to advice/redirection. Even though he has delusional, and grandiose thoughts. Thinking he see a snake in his toilet, seeing his brother coming to see him. Per nursing he had unwitnessed fall when trying to put himself sitting down on the chair but missed it. Slightly better in term of manic behaviors, redirectable and less demanding. Redirected for personal space. Accepted it without any problems. 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 With much effort, Pt remains able to be redirected; examined great rt toe which remains with clear signs of cellulites -Start Ziprasidone -obtained EKG and qtc WNL -Depakote level with much room so will switch depakote to ER so can make at bedtime to help w/ sleep and will increase dose (Depakote IR 1750mg ~ Dep ER 2000) 11/26 Patient remains manic, intrusive, grandiose, tangential. Patient is intrusive to the point where some peers are getting very angry and some feeling provoked. -So far unable to break this manic episode; so far Zyprexa and Geodon have not affected patient and patient is in danger of unintentionally inciting peer aggression. -Thorazine 100 mg did not help either; will try Thorazine 200 mg t.i.d. combined with diazepam 15 mg t.i.d. (10mg did nothing) -if Thorazine does not help, will consider Haldol; also will soon get Depakote level and maybe able to increase other 11/27 Patient remains manic, grandiose, very intrusive with peers and staff, going into patient's rooms, walking up in into rejection himself, getting very close to people making people both angry and scared. Difficult decisions regarding treatment. Discussed case with Dr. Vázquez who agrees with plan For now, will discontinue Thorazine and Valium as fiction writer is somewhat concern that all this sedating medication could add on a delirium to his already manic behaviors. Instead, will try Trileptal to help break manic episode; Trileptal has the least side effect risk profile of options so will give it a try (though not very robust evidence) -Considering Tegretol however this will lower the effective dose of both clozapine and Risperdal by 50% or more creating a confusing treatment regimen; also can affect the liver and bone marrow and patient is already on Depakote and Clozaril -also considering Haldol however patient is already on 2 antipsychotics -also considering Tamoxifen used off-label however increases thrombo embolism risk and can raise the effective doses of clozapine and Risperdal ECT remains the gold standard to treat refractory jacob however patient has a guardian and Vela which would need to be amended 11/28 Patient angry, punching the wall, yelling aggressively, peers is getting scared; 1 peer felt threatened and confronted patient pushed him but both were able to be redirected. Made a threatening remark to staff i'm going to break you... Remains floridly manic, hyperverbal, intrusive... He did say yes to ECT however understands guardian needs to weigh in clinical reasoning: -patient's increasing aggression and agitation seems directly correlated with having had Thorazine and diazepam discontinued. Restarted it for the purpose of patient and milieu safety. However it later came to fiction writer's attention that Thorazine is not 1 of the antipsychotics listed on his community Vela..? Options that are available are Abilify and Haldol. Fitter Placer lowered Thorazine to 100 mg and allowed for 1 last for tonight, again for milieu and patient safety however will discontinue it and will have to see if the other options are helpful Discussed case with colleague Dr. Meza who continues to agree that using Tegretol would cause too much mixing up of med regimen and that best option is to help patient remain safe while Depakote gets a chance to become therapeutic. Depakote level today 108; will continue with Depakote ER 3000mg and get level tomorrow -talked with Patients guardian Breezy Granados who says he has no objection to patient getting ECT 11/29 Patient for the 1st time since manic episodes started, more subdued today and slept from much of the day. During periods when he was awake, remains manic, intrusive, grandiose and saying bizarre things such as I am hairy potters twin and I need to get back to [facility]. -hopefully this is the sign that patient's manic episode is starting to wane; will continue with Depakote ER 3000 mg and get another level tomorrow (The?therapeutic range for acute jacob is 50?125 mcg/mL) 11/30 Still manic -added Abilfy 10mg daily; would prefer to try Haldol (both on Vela) but since Qtc is elevated will try Abilify first...(as mentioned despite qtc elevation, risk of TdP remains very low and Haldol remains an option. 12/01/24: Patient continued to be manic, intrusive, irritable most of the day, making threats. Making grandiose and paranoid delusional statements I need to go back to [place] to protect Jet Goldy . I am . I am the new president of the country . Patient was naked in the savage asking to talk to social service coordinator this morning per staffing reports. Patient remains in the group room at the other hallway. Remain on kitchen restriction, limit access to the other end of the savage. Patient compliant with medications, see PRNs for anxiety and agitation, restless, hyperverbal, hyperactive, irritable, needs a lot redirection,incongruent with mood stating that he is happy and have no anxiety or depression. Poor insight and poor judgment. Denies that he has any order diagnosis or mental health issues except for anger disorder VPA level on 11/30/24: 117.9 (The?therapeutic range for acute jacob is 50?125 mcg/mL) 12/02/24: Patient slept for 9 hours last night. Compliant with meds, less irritable and more pleasant today. Continue to delusional and grandiose. He is calmer compare to yesterday. No naked episode. Discontinue Abilify, start Haldol 5mg TID with goal to control manic/psychotic, racing thoughts/behaviors. Some mild drooling which improving per nursing. Lactulose 20mg BID. (Ammnonia level 60H) Discontinue Abilfy. start Haldol 5mg TID. EKG done- no change compare to previous record. Slightly prolong QTc. 12/03/24: Patient slept for 8 hours, compliant with medications,, appeared to have tremors, and drooling which is not worsening. Patient appeared to be sedated this morning with mild irritable mood, sometimes he hearing from his room loudly, but spend more time in his room today. Slightly less intrusive. Continued to be delusional and grandiose. He has loose stool, Colace and MiraLax was held but continue offer lactulose. We will check ammonia level tomorrow. Observe by lateral lower extremity edema. Hospitalist consult placed. Regarding depakote level: The?therapeutic range for acute jacob is 50?125 mcg/mL, and most patients respond within this range?1 https://dailymed.nlm.nih.gov/dailymed/drugInfo.cfm?asemz=6nu839wp-rzt7-5243-1gu3 -368a467neecj ?2 https://pubmed.ncbi.nlm.nih.gov/70297862 .? of note, regarding EKG with prolonged Qtc: The incidence of torsades de pointes (TdP) from antipsychotic-induced QTc prolongation is?very low, estimated at?0.01?0.1%?(1?10 per 10,000 exposures) in clinical practice?1 https://pubmed.ncbi.nlm.nih.gov/64742450 ?2 https://pubmed.ncbi.nlm.nih.gov/86878534 . ?[And in the cases where someone did actually get TdP], the case fatality of TdP is also low, with?<10%?of TdP episodes resulting in cardiac , 12/04 Patient is doing better; less manic, less intrusive and resting more.? Still making grandiose delusional statements such as he is running for president with Roya Jolly, but certainly symptoms are improving.? He says he is on too much medication and fiction writer agrees to review? -Lowered to Diazepam 5mg TID (down from 10mg) -dc Benadryl 25mg TID -has been refusing Lactulose; will recheck Ammonia; if elevated will start LCarnatine 12/05 remains hypomanic and making grandiose statements; continue treatment plan; continues to refuse lactulose. Will get labs 12/06 Still manic/hypomanic; overall more easily redirected and less hyperactive but still can be loud, intrusive and he continues to make grandiose statements saying he is the boss, he owns different things, he was born in different countries....sometimes yelling loudly in frustration...none of which is baseline -fiction writer tried reality testing however this frustrated patient who remains with impaired insight to his manic episode increase Haldol to total daily dose of 25mg (up from 15mg) Monitoring Qtc ( QTcB Int : 471 ms on 12/06) Ammonia WNL; will lower Lactulose to 20mg daily (down from BID-has not always taken bedtime dose) 12/07 Patient remains manic/hypomanic; will continue current Haldol dose but may increase soon 12/08 remains manic, intrusive and grandiose; print binding worker came in met with him and find some far from baseline. Patient getting angry or today than previously and yelling angrily in the hallway needing to be frequently redirected as he is causing anxiety in the milieu Will increase Haldol to 10 mg t.i.d. If this does not work, will strongly consider tamoxifen as it will take considerable time to petition the court to add ECT to his community [place] 12/09 Remains manic, intrusive with peers. Yelling very angrily this morning in the shower; pretended the door was locked at 1 point. Sometimes yelling loudly in the hallway and slamming doors. Otherwise comes up to staff and peers, typically making unrelated, grandiose statements. Told fiction writer that the police are after him... That we need to find his brother and he could be in [place], [place]... Treatment plan: -patient seems to have regressed some in his progress...(though this is a nuanced observation and the progress alluded to was minimal if even there) For now will continue with Haldol 10 mg t.i.d.. It is difficult to know whether or not Abilify had been helping and that he decompensated a little once it was replaced with Haldol he started decompensating or if nothing has been helpful and his manic symptoms just ebb and flow... -tamoxifen remains an option 12/10 pretty much the same presentation; maybe a little more calm? Difficult to tell. Patient remains intrusive but redirectable. -continue current treatment plan for now; will give a few more days on Haldol to see if patient improves 12/11 Remains manic/hypomanic; maybe easier to redirect but still intrusive; still making bizarre or grandiose statements maybe a little less so. Patient continues to have very angry outburst, slamming doors and hitting the wall, sometimes yelling loudly and aggressively, but again able to be redirected -discussed with staff and since this is that patient may have improved a little bit but not all that much; will continue with Haldol 10 mg t.i.d. but strongly considering switching to Abilify 12/12 Patient reports that he has been feeling more stiff and also that Haldol has been giving him nightmares. Fitter Placer discussed this and discussed changing medications to Abilify. Patient agreed with this plan. Also agreed with artane/Trihexyphenidyl for stiffness, likely due to side effect of medication, since patient is allergic to Cogentin (though not clear what allergy is) -will discontinue Haldol and start Abilify; after 5 days of Haldol 10 mg t.i.d., patient's jacob has not really improved. Haldol is also potentially causing patient nightmares and maybe some increased stiffness and has increased risk for prolonged QTC. Abilify was tried in the past but it was a very brief trial so will restart now -fiction writer filling out paperwork to amend [facility] to include ECT; even if we are gabriel and patient's jacob resolves with medication management, ECT would have likely resolved this weeks ago and patient will benefit from having ECT listed as a potential treatment Plan: CV Q [address] [facility] ORDER/guardianship Patient is not appropriate for groups or to be in kitchen 1. Jacob DC Haldol (Haldol 10 mg t.i.d. for 5 days with very minimal effect) Start Abilify 20 mg; will titrate start artane/Trihexyphenidyl 1mg bid for increased stiffness, likely medication side effects; patient has a recorded allergy to Cogentin Continue Depakote ER 3000 mg qhs Continue Risperdal 1 mg a.m. and 4 mg q.h.s. Continue Clozaril 400 mg q.h.s.; Level: 403 and Norclozaril 137. DC Thorazine 200mg TID DC Diazpam 10mg TID; will taper and dc once jacob subsides dc Trileptal DC Ziprasidone no effect Dc zyprexa; does not seem to do much HOLD Wellbutrin XL (once jacob resolved likely re-titrate to Wellbutrin 300mg (likely increasing to 450mg triggered manic episode) STARTed Fenobibrate 160mg daily for severely elevated Triacylglycerides of 898 (pt has normal renal function) Continue other home medications -consider Ingrezza -adverse reaction to [place] (per patient) -consider Tegretol? 2. Great right toe cellulitis Increased to Keflex 500 mg qid for 7 days (discussed increased dose with hospitalist MARIA T) -examined 11/28 and cellulitis is resolving 3. TAG 898 (appears to be fasting)/Cholesterol 319 re-ordered Lipid panel: Trilgyciride 898 down to 581 on 11/18/24. Cholesterol 319 down to 317. AIC 5.5 WNL. Started Fenobibrate 160mg daily (pt has normal renal function) Change diet to Low Fat diet will consider Statin Ordered TSH (lft's WNL): 0.81 WNL Bilateral lower extremity edema Appears euvolemic on exam, encouraged leg elevation. L great toenail fungus We will need outpatient follow up with Podiatry for nail removal Class 3 obesity BMI 36.2 Weight loss encouraged Hypertriglyceridemia/hyperlipidemia Patient started on fenofibrate on November 17 Triglycerides down to 150. LDL cholesterol 124 Encouraged weight loss, encourage healthy food choices. Excessive drooling Seen by speech, swallow function is not a factor in saliva management, and no loss of motor function noted. Continue glycopyrrolate Patient educated on: diagnosis, medication risk/benefits and therapeutic strategies Informed Consent: understands, does not understand and further education needed Reason for continued inpatient stay Substantial Risk for: inability to function Time Spent With Patient Time: Total time managing care of this patient today ____ minutes.
--- NOTE | 2024-12-14 09:18 | P.PNPSI_ITS ---
Subjective Subjective Date of Service: 12/14/24 Reason For Visit: Depressive D/O Schizoaffective Subjective Notes: Conditional Voluntary Interim History: Patient notes that he feels good, happy, and excited. Sleep is adequate. He has been attending groups. He reports mild anxiety and no depression. He notes he saw [place] last night and hears voices here and there, but are memories from distance past. 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 He denies SI/HI. Medication Compliance: Yes Side effects from medications: No Attending Groups: Intermittent Review of Systems Acute medical concerns: No Review of Systems Review of Systems Yes all other systems are reviewed and are negative Mental Status Exam Mental Status Exam Narrative: Appearance: Casually dressed, adequate hygiene and grooming Behavior: Calm and cooperative throughout the interview. Coming out of room more and pacing the hallway. Eye contact is appropriate, and there are no signs of psychomotor agitation or retardation Speech: Normal volume and prosody Thought process: Logical and goal-directed Thought content: Future oriented no self-harming thoughts Mood: pretty good, happy, and excited Affect: Full, mood-congruent SI:denies HI:denies VH/AH: Reports Delusions: Grandiose Insight/judgment: Impaired insight and judgment improved and probably getting close to baseline Memory/cog: Alert, oriented x 3. grossly intact to conversational testing Diagnostics Vital Signs (24Hr): Vital Signs - 24 hr 12/13/24 20:00 Temperature 97.3 F Pulse Rate 109 H Respiratory Rate 16 Blood Pressure 145/82 H Pulse Oximetry 97 Oxygen Delivery Method Room Air BMI result Body Mass Index 34.2 Labs 11/28/24 10:37 Medications Medications Current Medications Acetaminophen (Acetaminophen 325 Mg Tablet) 650 mg PO Q6H PRN PRN Reason: Headache/Pain, Scale 1-10 Last Admin: 12/09/24 16:30 Dose: 650 mg Al Hydroxide/Mg Hydroxide (Magnesium Hydrox/Alum Hydrox 30 Ml Oral.Susp) 30 ml PO Q6H PRN PRN Reason: Heartburn/Nausea Last Admin: 11/21/24 01:55 Dose: 30 ml Aripiprazole (Aripiprazole 30 Mg Tablet) 30 mg PO DAILY STEWART Benzocaine (Throat Lozenge, Medicated Lozenge) 1 lozenge MUCOUS MEM Q2H PRN PRN Reason: Sore Throat Last Admin: 12/10/24 14:21 Dose: 1 lozenge Capsaicin (Capsaicin 0.025% Cream 60 Gm Tube) 1 appl TOPICAL TID PRN; Protocol PRN Reason: leg pain Last Admin: 12/10/24 13:12 Dose: 1 appl Clonidine HCl (Clonidine Hcl 0.1 Mg Tablet) 0.1 mg PO Q4H PRN; Protocol PRN Reason: moderate anxiety Last Admin: 12/11/24 13:32 Dose: 0.1 mg Clozapine (Clozapine 100 Mg Tablet) 400 mg PO BEDTIME STEWART Last Admin: 12/13/24 21:10 Dose: 400 mg Diazepam (Diazepam 5 Mg Tablet) 5 mg PO TID STEWART Last Admin: 12/13/24 21:12 Dose: 5 mg Diphenhydramine HCl (Diphenhydramine Hcl 25 Mg Capsule) 25 mg PO TID STEWART On Hold: 12/04/24 22:11 Last Admin: 12/04/24 22:16 Dose: 25 mg Divalproex Sodium (Divalproex Sodium Er 500 Mg Tab.Er.24h) 3,000 mg PO BEDTIME STEWART Last Admin: 12/13/24 21:11 Dose: 3,000 mg Docusate Sodium (Docusate Sodium 100 Mg Capsule) 100 mg PO BID STEWART Last Admin: 12/13/24 21:13 Dose: 100 mg Fenofibrate (Fenofibrate 160 Mg Tablet) 160 mg PO DAILY ON LICENSE OF [facility] Last Admin: 12/13/24 08:38 Dose: 160 mg Fluticasone Propionate (Fluticasone Propionate Nasal 16 Gm [place]) 1 spray NOSTRIL-B BEDTIME STEWART Last Admin: 12/13/24 22:18 Dose: Not Given Fluticasone Propionate (Fluticasone Propionate Nasal 16 Gm [place]) 1 spray NOSTRIL-B DAILY PRN PRN Reason: Nasal allergy Last Admin: 11/24/24 06:25 Dose: 1 spray Glycopyrrolate (Glycopyrrolate 1 Mg Tablet) 1 mg PO TID STEWART Last Admin: 12/13/24 21:13 Dose: 1 mg Ibuprofen (Ibuprofen 400 Mg Tablet) 400 mg PO Q6H PRN PRN Reason: Pain, Moderate(Pain Scale 4-6) Last Admin: 12/12/24 13:14 Dose: 400 mg Lactulose (Lactulose 20 Gm/30 Ml Solution) 20 gm PO DAILY STEWART On Hold: 12/10/24 08:55 Last Admin: 12/10/24 08:39 Dose: 20 gm Lorazepam (Lorazepam 1 Mg Tablet) 1 mg PO Q8H PRN PRN Reason: Anxiety Last Admin: 12/12/24 13:14 Dose: 1 mg Magnesium Hydroxide (Milk Of Magnesia 30 Ml Oral.Susp) 30 ml PO DAILY PRN PRN Reason: Constipation Last Admin: 11/28/24 14:32 Dose: 30 ml Nicotine (Nicotine 21 Mg Patch.Td24) 21 mg TRANSDERMA DAILY PRN PRN Reason: smoking cessation Last Admin: 11/25/24 08:46 Dose: 21 mg Nicotine Polacrilex (Nicotine Polacrilex 2 Mg Gum) 4 mg BUCCAL Q2H PRN PRN Reason: Nicotine Cravings Last Admin: 12/04/24 05:43 Dose: 4 mg Ondansetron HCl (Ondansetron Odt 4 Mg Tab.Rapdis) 4 mg TRANSLINGU Q6H PRN PRN Reason: Nausea and Vomiting Last Admin: 11/28/24 16:14 Dose: 4 mg Polyethylene Glycol (Polyethylene Glycol 3350 17 Gm Powd.Pack) 17 gm PO DAILY STEWART On Hold: 12/04/24 10:12 Last Admin: 12/04/24 10:07 Dose: Not Given Polyethylene Glycol (Polyethylene Glycol 3350 17 Gm Powd.Pack) 17 gm PO DAILY PRN PRN Reason: Constipation Last Admin: 11/28/24 16:16 Dose: 17 gm Risperidone (Risperidone 2 Mg Tablet) 4 mg PO BEDTIME STEWART Last Admin: 12/13/24 21:11 Dose: 4 mg Risperidone (Risperidone 1 Mg Tablet) 1 mg PO DAILY STEWART Last Admin: 12/13/24 08:38 Dose: 1 mg Trazodone HCl (Trazodone Hcl 50 Mg Tablet) 50 mg PO BEDTIME MRX1 PRN PRN Reason: Insomnia Last Admin: 12/02/24 20:49 Dose: 50 mg Trihexyphenidyl HCl (Trihexyphenidyl Hcl 2 Mg Tablet) 1 mg PO TID STEWART Last Admin: 12/13/24 21:12 Dose: 1 mg Allergies Allergies Allergy/AdvReac Type Severity Reaction Status Date / Time benztropine (From COGENTIN) Allergy Unknown UNKNOWN Verified 11/16/24 15:51 propranolol (From INDERAL LA) Allergy Unknown UNKNOWN Verified 11/16/24 15:51 chaste tree Allergy Unknown Verified 11/16/24 15:51 lithium Allergy Unknown Verified 11/16/24 15:51 Assessment & Plan Assessment & Plan (1) Schizoaffective disorder, bipolar type: Status: Acute Code(s): F25.0 - Schizoaffective disorder, bipolar type (2) Bilateral edema of lower extremity: Status: Acute Code(s): R60.0 - Localized edema (3) Autism spectrum disorder: Status: Acute Code(s): F84.0 - Autistic disorder (4) Cellulitis: Status: Acute Code(s): L03.90 - Cellulitis, unspecified (5) Class 3 obesity: Status: Acute Code(s): E66.813 - Obesity, class 3 Plan Patient is a 34-year-old male with history of schizoaffective disorder bipolar type, Autism Spectrum Disorder, who [place] a [place] [facility] [place] for [place]. Patient reports that every 7 weeks (and every 4 months) medications don't work...and I feel depressed.... He says the the depression last anywhere from 2 to 12 days.. And then resolves on it's own without medication changes. Patient reports that he had suicidal ideation a few days ago, no plan but does not now. Patient says sometimes he hears sounds or voices that others do not hear, sometimes laughing noise but not very often and usually just during sleep. Discussed medication regimen and patient said that recently his Depakote was increased because he was having mood swings but it was difficult for him to give details. Discussed medication options and patient agrees to increase Wellbutrin to 450 mg. Formulation/clinical reasoning: Patient reports that episodically he still gets bouts of depression that can last for longer than a week however this seemed to resolve on their own. He is not sure what triggers them. Patient says he is already feeling better now that he is on the unit because of the friendships and interactions he has made since coming to the unit; patient signed a 3 day notice. Discussed medication options and patient agrees to increase Wellbutrin to 450 mg. Apparatus Lineman wonders if perhaps patient can remain at Wellbutrin 300 mg and just take the extra 150 mg if he starts to feel depressed, sort of as an episodic p.r.n. -patient currently on 2 antipsychotics, including Clozaril and Risperdal; -some TD and pill rolling b/l hand tremor observed; wonder if Risperdal dose could be lowered; consider Aristeo Of note patient had severely high Triacylglycerides of 898. It appears to have been taken while patient fasting however patient is not sure. TAG this high puts patient at risk for pancreatitis. Will redraw labs tomorrow morning to ensure fasting however for now will treat as if this is an accurate lab Hospital course: 11/18: Continue current management and treatment plan. 11/19: Increase Depakote to 500 mg in AM and continue 1,000 mg HS. 11/20: continue current management and treatment plan. 11/21 Patient has become manic over the past several days. Additional Depakote dose was added but patient remains manic, grandiose, labile and intrusive. 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 Patient at 1 point broke down crying about the of his parents, saying that his mother was murdered but then saying she had a brain bleed.. Patient saying that he is from [place] and is going to go back and live his life and [place]... Initially demanding to be discharged today but was able to be redirected. Patient agrees to increased medications including adding Zyprexa -will hold Wellbutrin; seems likely that increasing Wellbutrin was what triggered manic episode -Increasing bedtime Depakote to 1250 mg -patient hardly slept last night and added Zyprexa 10 mg b.i.d.; plan is to discontinue once jacob subsides -reviewed labs and repeat cholesterol shows highly elevated TAG>500 though not as high as the day before 11/22 Patient did sleep some last night with added Zyprexa. Still manic but a little less intense and though still with some grandiose ideations, much less so. Patient still intrusive to others but redirectable. Patient did agree that he was acting manic yesterday but says he is fine now and wants to discharge. He persisted in demanding for discharge today and expressed frustration when told this is not possible but remained in behavioral control. -Great right toe with cellulitis; started on Keflex -Depakote labs ordered for Wednesday *patient is not stable to return to jail at this time. Will try to get him to retract his 3 day notice but will otherwise file for civil commitment; that said hopefully will not need to go to court and manic episode will resolve 11/23/24: Patient slept for 2 hours, was medication compliant. Denies side effect but observed have some hand tremors. Restless, racing thoughts, intrusive, poor boundaries, need multiple redirections most of the time to respect personal space. He is over friendly, bright, manic but appeared to be less manic compared to yesterday. Can be perseverative on discharge, redirectable and need to remind that he is not leaving today a couple of times. He retracted 3 day notice. He seems to be forgetful. To PRNs with mild to moderate effects. He works on puzzle, and cleaning up his room. He has an reasonable planning for the future, appeared to be grandiose no aggressive behavior, can be irritable at times when things not the way he requested. Continue to monitor for sleeping pattern. 11/24/24: Slept slightly improved compared to the night before, he was able to slept for 4 hours. Was medication compliant. Mood is I am happy. I am calm and relaxed . Reports foot pain, nursing have patient to put lotion on, encouraged to elevated legs when he resting as left food appear to be slightly swollen. He said he would like to go back to his jail. He also asked if he can call Carla and Max to apologize to them. Read direct patient not calling so many times that may annoying other persons. He admitted that he need to give them a break . Observe want time he was on the phone, appropriate. He is slightly better compared to yesterday, able to sit still, listen to advice/redirection. Even though he has delusional, and grandiose thoughts. Thinking he see a snake in his toilet, seeing his brother coming to see him. Per nursing he had unwitnessed fall when trying to put himself sitting down on the chair but missed it. Slightly better in term of manic behaviors, redirectable and less demanding. Redirected for personal space. Accepted it without any problems. 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 With much effort, Pt remains able to be redirected; examined great rt toe which remains with clear signs of cellulites -Start Ziprasidone -obtained EKG and qtc WNL -Depakote level with much room so will switch depakote to ER so can make at bedtime to help w/ sleep and will increase dose (Depakote IR 1750mg ~ Dep ER 2000) 11/26 Patient remains manic, intrusive, grandiose, tangential. Patient is intrusive to the point where some peers are getting very angry and some feeling provoked. -So far unable to break this manic episode; so far Zyprexa and Geodon have not affected patient and patient is in danger of unintentionally inciting peer aggression. -Thorazine 100 mg did not help either; will try Thorazine 200 mg t.i.d. combined with diazepam 15 mg t.i.d. (10mg did nothing) -if Thorazine does not help, will consider Haldol; also will soon get Depakote level and maybe able to increase other 11/27 Patient remains manic, grandiose, very intrusive with peers and staff, going into patient's rooms, walking up in into rejection himself, getting very close to people making people both angry and scared. Difficult decisions regarding treatment. Discussed case with Dr. Vázquez who agrees with plan For now, will discontinue Thorazine and Valium as account underwriter is somewhat concern that all this sedating medication could add on a delirium to his already manic behaviors. Instead, will try Trileptal to help break manic episode; Trileptal has the least side effect risk profile of options so will give it a try (though not very robust evidence) -Considering Tegretol however this will lower the effective dose of both clozapine and Risperdal by 50% or more creating a confusing treatment regimen; also can affect the liver and bone marrow and patient is already on Depakote and Clozaril -also considering Haldol however patient is already on 2 antipsychotics -also considering Tamoxifen used off-label however increases thrombo embolism risk and can raise the effective doses of clozapine and Risperdal ECT remains the gold standard to treat refractory jacob however patient has a guardian and Vela which would need to be amended 11/28 Patient angry, punching the wall, yelling aggressively, peers is getting scared; 1 peer felt threatened and confronted patient pushed him but both were able to be redirected. Made a threatening remark to staff i'm going to break you... Remains floridly manic, hyperverbal, intrusive... He did say yes to ECT however understands guardian needs to weigh in clinical reasoning: -patient's increasing aggression and agitation seems directly correlated with having had Thorazine and diazepam discontinued. Restarted it for the purpose of patient and milieu safety. However it later came to account underwriter's attention that Thorazine is not 1 of the antipsychotics listed on his community Vela..? Options that are available are Abilify and Haldol. Apparatus Lineman lowered Thorazine to 100 mg and allowed for 1 last for tonight, again for milieu and patient safety however will discontinue it and will have to see if the other options are helpful Discussed case with colleague Dr. Meza who continues to agree that using Tegretol would cause too much mixing up of med regimen and that best option is to help patient remain safe while Depakote gets a chance to become therapeutic. Depakote level today 108; will continue with Depakote ER 3000mg and get level tomorrow -talked with Patients guardian Breezy Granados who says he has no objection to patient getting ECT 11/29 Patient for the 1st time since manic episodes started, more subdued today and slept from much of the day. During periods when he was awake, remains manic, intrusive, grandiose and saying bizarre things such as I am hairy potters twin and I need to get back to [employer] -hopefully this is the sign that patient's manic episode is starting to wane; will continue with Depakote ER 3000 mg and get another level tomorrow (The?therapeutic range for acute jacob is 50?125 mcg/mL) 11/30 Still manic -added Abilfy 10mg daily; would prefer to try Haldol (both on Vela) but since Qtc is elevated will try Abilify first...(as mentioned despite qtc elevation, risk of TdP remains very low and Haldol remains an option. 12/01/24: Patient continued to be manic, intrusive, irritable most of the day, making threats. Making grandiose and paranoid delusional statements I need to go back to [place] to protect Jet Goldy . I am . I am the new president of the country . Patient was naked in the savage asking to talk to social media marketing manager this morning per staffing reports. Patient remains in the group room at the other hallway. Remain on kitchen restriction, limit access to the other end of the savage. Patient compliant with medications, see PRNs for anxiety and agitation, restless, hyperverbal, hyperactive, irritable, needs a lot redirection,incongruent with mood stating that he is happy and have no anxiety or depression. Poor insight and poor judgment. Denies that he has any order diagnosis or mental health issues except for anger disorder VPA level on 11/30/24: 117.9 (The?therapeutic range for acute jacob is 50?125 mcg/mL) 12/02/24: Patient slept for 9 hours last night. Compliant with meds, less irritable and more pleasant today. Continue to delusional and grandiose. He is calmer compare to yesterday. No naked episode. Discontinue Abilify, start Haldol 5mg TID with goal to control manic/psychotic, racing thoughts/behaviors. Some mild drooling which improving per nursing. Lactulose 20mg BID. (Ammnonia level 60H) Discontinue Abilfy. start Haldol 5mg TID. EKG done- no change compare to previous record. Slightly prolong QTc. 12/03/24: Patient slept for 8 hours, compliant with medications,, appeared to have tremors, and drooling which is not worsening. Patient appeared to be sedated this morning with mild irritable mood, sometimes he hearing from his room loudly, but spend more time in his room today. Slightly less intrusive. Continued to be delusional and grandiose. He has loose stool, Colace and MiraLax was held but continue offer lactulose. We will check ammonia level tomorrow. Observe by lateral lower extremity edema. Hospitalist consult placed. Regarding depakote level: The?therapeutic range for acute jacob is 50?125 mcg/mL, and most patients respond within this range?1 https://dailymed.nlm.nih.gov/dailymed/drugInfo.cfm?eejbr=2uw631bp-aek6-3460-2ch7 -730x298ndhwq ?2 https://pubmed.ncbi.nlm.nih.gov/65392627 .? of note, regarding EKG with prolonged Qtc: The incidence of torsades de pointes (TdP) from antipsychotic-induced QTc prolongation is?very low, estimated at?0.01?0.1%?(1?10 per 10,000 exposures) in clinical practice?1 https://pubmed.ncbi.nlm.nih.gov/59725763 ?2 https://pubmed.ncbi.nlm.nih.gov/41594153 . ?[And in the cases where someone did actually get TdP], the case fatality of TdP is also low, with?<10%?of TdP episodes resulting in cardiac , 12/04 Patient is doing better; less manic, less intrusive and resting more.? Still making grandiose delusional statements such as he is running for president with Roya Jolly, but certainly symptoms are improving.? He says he is on too much medication and account underwriter agrees to review? -Lowered to Diazepam 5mg TID (down from 10mg) -dc Benadryl 25mg TID -has been refusing Lactulose; will recheck Ammonia; if elevated will start LCarnatine 12/05 remains hypomanic and making grandiose statements; continue treatment plan; continues to refuse lactulose. Will get labs 12/06 Still manic/hypomanic; overall more easily redirected and less hyperactive but still can be loud, intrusive and he continues to make grandiose statements saying he is the boss, he owns different things, he was born in different countries....sometimes yelling loudly in frustration...none of which is baseline -account underwriter tried reality testing however this frustrated patient who remains with impaired insight to his manic episode increase Haldol to total daily dose of 25mg (up from 15mg) Monitoring Qtc ( QTcB Int : 471 ms on 12/06) Ammonia WNL; will lower Lactulose to 20mg daily (down from BID-has not always taken bedtime dose) 12/07 Patient remains manic/hypomanic; will continue current Haldol dose but may increase soon 12/08 remains manic, intrusive and grandiose; food and drink factory workers came in met with him and find some far from baseline. Patient getting angry or today than previously and yelling angrily in the hallway needing to be frequently redirected as he is causing anxiety in the milieu Will increase Haldol to 10 mg t.i.d. If this does not work, will strongly consider tamoxifen as it will take considerable time to petition the court to add ECT to his community [place] 12/09 Remains manic, intrusive with peers. Yelling very angrily this morning in the shower; pretended the door was locked at 1 point. Sometimes yelling loudly in the hallway and slamming doors. Otherwise comes up to staff and peers, typically making unrelated, grandiose statements. Told account underwriter that the police are after him... That we need to find his brother and he could be in [place], [place]... Treatment plan: -patient seems to have regressed some in his progress...(though this is a nuanced observation and the progress alluded to was minimal if even there) For now will continue with Haldol 10 mg t.i.d.. It is difficult to know whether or not Toña had been helping and that he decompensated a little once it was replaced with Haldol he started decompensating or if nothing has been helpful and his manic symptoms just ebb and flow... -tamoxifen remains an option 12/10 pretty much the same presentation; maybe a little more calm? Difficult to tell. Patient remains intrusive but redirectable. -continue current treatment plan for now; will give a few more days on Haldol to see if patient improves 12/11 Remains manic/hypomanic; maybe easier to redirect but still intrusive; still making bizarre or grandiose statements maybe a little less so. Patient continues to have very angry outburst, slamming doors and hitting the wall, sometimes yelling loudly and aggressively, but again able to be redirected -discussed with staff and since this is that patient may have improved a little bit but not all that much; will continue with Haldol 10 mg t.i.d. but strongly considering switching to Abilify 12/12 Patient reports that he has been feeling more stiff and also that Haldol has been giving him nightmares. Apparatus Lineman discussed this and discussed changing medications to Abilify. Patient agreed with this plan. Also agreed with artane/Trihexyphenidyl for stiffness, likely due to side effect of medication, since patient is allergic to Cogentin (though not clear what allergy is) -will discontinue Haldol and start Abilify; after 5 days of Haldol 10 mg t.i.d., patient's jacob has not really improved. Haldol is also potentially causing patient nightmares and maybe some increased stiffness and has increased risk for prolonged QTC. Abilify was tried in the past but it was a very brief trial so will restart now -account underwriter filling out paperwork to amend [facility] to include ECT; even if we are gabriel and patient's jacob resolves with medication management, ECT would have likely resolved this weeks ago and patient will benefit from having ECT listed as a potential treatment 12/13: Continue current treatment regimen. Plan: CV Q 15 minute checks On [facility] ORDER/guardianship Patient is not appropriate for groups or to be in kitchen 1. Jacob DC Haldol (Haldol 10 mg t.i.d. for 5 days with very minimal effect) Start Abilify 20 mg; will titrate start artane/Trihexyphenidyl 1mg bid for increased stiffness, likely medication side effects; patient has a recorded allergy to Cogentin Continue Depakote ER 3000 mg qhs Continue Risperdal 1 mg a.m. and 4 mg q.h.s. Continue Clozaril 400 mg q.h.s.; Level: 403 and Norclozaril 137. DC Thorazine 200mg TID DC Diazpam 10mg TID; will taper and dc once jacob subsides dc Trileptal DC Ziprasidone no effect Dc zyprexa; does not seem to do much HOLD Wellbutrin XL (once jacob resolved likely re-titrate to Wellbutrin 300mg (likely increasing to 450mg triggered manic episode) STARTed Fenobibrate 160mg daily for severely elevated Triacylglycerides of 898 (pt has normal renal function) Continue other home medications -consider Ingrezza -adverse reaction to [place] (per patient) -consider Tegretol? 2. Great right toe cellulitis Increased to Keflex 500 mg qid for 7 days (discussed increased dose with hospitalist MARIA T) -examined 11/28 and cellulitis is resolving 3. TAG 898 (appears to be fasting)/Cholesterol 319 re-ordered Lipid panel: Trilgyciride 898 down to 581 on 11/18/24. Cholesterol 319 down to 317. AIC 5.5 WNL. Started Fenobibrate 160mg daily (pt has normal renal function) Change diet to Low Fat diet will consider Statin Ordered TSH (lft's WNL): 0.81 WNL Bilateral lower extremity edema Appears euvolemic on exam, encouraged leg elevation. L great toenail fungus We will need outpatient follow up with Podiatry for nail removal Class 3 obesity BMI 36.2 Weight loss encouraged Hypertriglyceridemia/hyperlipidemia Patient started on fenofibrate on November 17 Triglycerides down to 150. LDL cholesterol 124 Encouraged weight loss, encourage healthy food choices. Excessive drooling Seen by speech, swallow function is not a factor in saliva management, and no loss of motor function noted. Continue glycopyrrolate Patient educated on: medication risk/benefits and therapeutic strategies Reason for continued inpatient stay Substantial Risk for: rapid decompensation Time Spent With Patient Time: Total time managing care of this patient today ____ minutes.
[2024-12-14] MEDS: ARIPiprazole 30 MG TABLET PO (09:24)
[2024-12-14 14:46] VITALS: BMI 34.1
[2024-12-14 20:00] VITALS: BP 132/65; PULSE 110; RESP 18; TEMP 36.2; O2SAT 96
[2024-12-15 08:00] VITALS: BP 116/71; PULSE 117; RESP 16; TEMP 35.7; O2SAT 98
[2024-12-15] MEDS: ARIPiprazole 30 MG TABLET PO (08:38)
[2024-12-15 08:48] LABS: Neut%MD 60.0 %; WBCANC 11.5 X10*3/uL
--- NOTE | 2024-12-15 09:42 | HO.PSYCHPN ---
Subjective Subjective Date of Service: 12/15/24 Reason For Visit: Depressive D/O Schizoaffective Interim History: met with patient; discussed with team; reviewed chart Patient perhaps a little more calm, and not making as many grandiose comments. Mental Status Exam Mental Status Exam Narrative: Pt is alert and oriented; behavior is manic/hypomanic, and can be loud and angry; still hyperverbal maybe not as intense); still intrusive with peers but more easily redirectable; patient is not in distress; dressed in casual attire, unkempt; bilateral hand tremor; aggregate hygiene; mood is described as good and affect less expansive; eye contact appropriate; Speech verbose but not pressured and not really rambling; intermittent psychomotor agitation present; thought process can be goal oriented, but also tangential; Thought content remains with grandiose delusions; denies any SI/HI. Denies AVH Patients insight and judgment impaired Diagnostics Vital Signs (24Hr): Vital Signs - 24 hr 12/14/24 20:00 Temperature 97.2 F Pulse Rate 110 H Respiratory Rate 18 Blood Pressure 132/65 Pulse Oximetry 96 Oxygen Delivery Method Room Air BMI result Body Mass Index 34.1 Labs 11/28/24 10:37 Labs: Laboratory Results - last 48 hr 12/15/24 08:14 Absolute Neuts (auto) 6.9 Medications Medications Current Medications Acetaminophen (Acetaminophen 325 Mg Tablet) 650 mg PO Q6H PRN PRN Reason: Headache/Pain, Scale 1-10 Last Admin: 12/15/24 05:35 Dose: 650 mg Al Hydroxide/Mg Hydroxide (Magnesium Hydrox/Alum Hydrox 30 Ml Oral.Susp) 30 ml PO Q6H PRN PRN Reason: Heartburn/Nausea Last Admin: 11/21/24 01:55 Dose: 30 ml Aripiprazole (Aripiprazole 30 Mg Tablet) 30 mg PO DAILY STEWART Last Admin: 12/15/24 08:38 Dose: 30 mg Benzocaine (Throat Lozenge, Medicated Lozenge) 1 lozenge MUCOUS MEM Q2H PRN PRN Reason: Sore Throat Last Admin: 12/10/24 14:21 Dose: 1 lozenge Capsaicin (Capsaicin 0.025% Cream 60 Gm Tube) 1 appl TOPICAL TID PRN; Protocol PRN Reason: leg pain Last Admin: 12/10/24 13:12 Dose: 1 appl Clonidine HCl (Clonidine Hcl 0.1 Mg Tablet) 0.1 mg PO Q4H PRN; Protocol PRN Reason: moderate anxiety Last Admin: 12/11/24 13:32 Dose: 0.1 mg Clozapine (Clozapine 100 Mg Tablet) 400 mg PO BEDTIME STEWART Last Admin: 12/14/24 20:59 Dose: 400 mg Diazepam (Diazepam 5 Mg Tablet) 5 mg PO TID STEWART Last Admin: 12/14/24 21:02 Dose: 5 mg Diphenhydramine HCl (Diphenhydramine Hcl 25 Mg Capsule) 25 mg PO TID STEWART On Hold: 12/04/24 22:11 Last Admin: 12/04/24 22:16 Dose: 25 mg Divalproex Sodium (Divalproex Sodium Er 500 Mg Tab.Er.24h) 3,000 mg PO BEDTIME STEWART Last Admin: 12/14/24 21:01 Dose: 3,000 mg Docusate Sodium (Docusate Sodium 100 Mg Capsule) 100 mg PO BID [facility] Last Admin: 12/15/24 08:39 Dose: 100 mg Fenofibrate (Fenofibrate 160 Mg Tablet) 160 mg PO DAILY [facility] Last Admin: 12/15/24 08:38 Dose: 160 mg Fluticasone Propionate (Fluticasone Propionate Nasal 16 Gm Senath) 1 spray NOSTRIL-B BEDTIME [facility] Last Admin: 12/14/24 21:07 Dose: Not Given Fluticasone Propionate (Fluticasone Propionate Nasal 16 Gm Senath) 1 spray NOSTRIL-B DAILY PRN PRN Reason: Nasal allergy Last Admin: 11/24/24 06:25 Dose: 1 spray Glycopyrrolate (Glycopyrrolate 1 Mg Tablet) 1 mg PO TID [facility] Last Admin: 12/15/24 08:39 Dose: 1 mg Ibuprofen (Ibuprofen 400 Mg Tablet) 400 mg PO Q6H PRN PRN Reason: Pain, Moderate(Pain Scale 4-6) Last Admin: 12/12/24 13:14 Dose: 400 mg Lactulose (Lactulose 20 Gm/30 Ml Solution) 20 gm PO DAILY STEWART On Hold: 12/10/24 08:55 Last Admin: 12/10/24 08:39 Dose: 20 gm Lorazepam (Lorazepam 1 Mg Tablet) 1 mg PO Q8H PRN PRN Reason: Anxiety Last Admin: 12/15/24 05:38 Dose: 1 mg Magnesium Hydroxide (Milk Of Magnesia 30 Ml Oral.Susp) 30 ml PO DAILY PRN PRN Reason: Constipation Last Admin: 11/28/24 14:32 Dose: 30 ml Ondansetron HCl (Ondansetron Odt 4 Mg Tab.Rapdis) 4 mg TRANSLINGU Q6H PRN PRN Reason: Nausea and Vomiting Last Admin: 11/28/24 16:14 Dose: 4 mg Polyethylene Glycol (Polyethylene Glycol 3350 17 Gm Powd.Pack) 17 gm PO DAILY STEWART On Hold: 12/04/24 10:12 Last Admin: 12/04/24 10:07 Dose: Not Given Polyethylene Glycol (Polyethylene Glycol 3350 17 Gm Powd.Pack) 17 gm PO DAILY PRN PRN Reason: Constipation Last Admin: 11/28/24 16:16 Dose: 17 gm Risperidone (Risperidone 2 Mg Tablet) 4 mg PO BEDTIME STEWART Last Admin: 12/14/24 21:00 Dose: 4 mg Risperidone (Risperidone 1 Mg Tablet) 1 mg PO DAILY STEWART Last Admin: 12/15/24 08:39 Dose: 1 mg Trazodone HCl (Trazodone Hcl 50 Mg Tablet) 50 mg PO BEDTIME MRX1 PRN PRN Reason: Insomnia Last Admin: 12/02/24 20:49 Dose: 50 mg Trihexyphenidyl HCl (Trihexyphenidyl Hcl 2 Mg Tablet) 1 mg PO TID STEWART Last Admin: 12/15/24 08:38 Dose: 1 mg Allergies Allergies Allergy/AdvReac Type Severity Reaction Status Date / Time benztropine (From COGENTIN) Allergy Unknown UNKNOWN Verified 11/16/24 15:51 propranolol (From INDERAL LA) Allergy Unknown UNKNOWN Verified 11/16/24 15:51 chaste tree Allergy Unknown Verified 11/16/24 15:51 lithium Allergy Unknown Verified 11/16/24 15:51 Assessment & Plan Assessment & Plan (1) Schizoaffective disorder, bipolar type: Status: Acute Code(s): F25.0 - Schizoaffective disorder, bipolar type (2) Bilateral edema of lower extremity: Status: Acute Code(s): R60.0 - Localized edema (3) Autism spectrum disorder: Status: Acute Code(s): F84.0 - Autistic disorder (4) Cellulitis: Status: Acute Code(s): L03.90 - Cellulitis, unspecified (5) Class 3 obesity: Status: Acute Code(s): E66.813 - Obesity, class 3 Plan Patient is a 34-year-old male with history of schizoaffective disorder bipolar type, Autism Spectrum Disorder, who lives in a [facility], on a community Vela who presents for depression. Patient reports that every 7 weeks (and every 4 months) medications don't work...and I feel depressed.... He says the the depression last anywhere from 2 to 12 days.. And then resolves on it's own without medication changes. Patient reports that he had suicidal ideation a few days ago, no plan but does not now. Patient says sometimes he hears sounds or voices that others do not hear, sometimes laughing noise but not very often and usually just during sleep. Discussed medication regimen and patient said that recently his Depakote was increased because he was having mood swings but it was difficult for him to give details. Discussed medication options and patient agrees to increase Wellbutrin to 450 mg. Formulation/clinical reasoning: Patient reports that episodically he still gets bouts of depression that can last for longer than a week however this seemed to resolve on their own. He is not sure what triggers them. Patient says he is already feeling better now that he is on the unit because of the friendships and interactions he has made since coming to the unit; patient signed a 3 day notice. Discussed medication options and patient agrees to increase Wellbutrin to 450 mg. Director Of Enterprise [employer] wonders if perhaps patient can remain at Wellbutrin 300 mg and just take the extra 150 mg if he starts to feel depressed, sort of as an episodic p.r.n. -patient currently on 2 antipsychotics, including Clozaril and Risperdal; -some TD and pill rolling b/l hand tremor observed; wonder if Risperdal dose could be lowered; consider Ingrezza Of note patient had severely high Triacylglycerides of 898. It appears to have been taken while patient fasting however patient is not sure. TAG this high puts patient at risk for pancreatitis. Will redraw labs tomorrow morning to ensure fasting however for now will treat as if this is an accurate lab Hospital course: 11/18: Continue current management and treatment plan. 11/19: Increase Depakote to 500 mg in AM and continue 1,000 mg HS. 11/20: continue current management and treatment plan. 11/21 Patient has become manic over the past several days. Additional Depakote dose was added but patient remains manic, grandiose, labile and intrusive. 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 Patient at 1 point broke down crying about the of his parents, saying that his mother was murdered but then saying she had a brain bleed.. Patient saying that he is from [place] and is going to go back and live his life and [place]... Initially demanding to be discharged today but was able to be redirected. Patient agrees to increased medications including adding Zyprexa -will hold Wellbutrin; seems likely that increasing Wellbutrin was what triggered manic episode -Increasing bedtime Depakote to 1250 mg -patient hardly slept last night and added Zyprexa 10 mg b.i.d.; plan is to discontinue once jacob subsides -reviewed labs and repeat cholesterol shows highly elevated TAG>500 though not as high as the day before 11/22 Patient did sleep some last night with added Zyprexa. Still manic but a little less intense and though still with some grandiose ideations, much less so. Patient still intrusive to others but redirectable. Patient did agree that he was acting manic yesterday but says he is fine now and wants to discharge. He persisted in demanding for discharge today and expressed frustration when told this is not possible but remained in behavioral control. -Great right toe with cellulitis; started on Keflex -Depakote labs ordered for Wednesday *patient is not stable to return to [facility] at this time. Will try to get him to retract his 3 day notice but will otherwise file for civil commitment; that said hopefully will not need to go to court and manic episode will resolve 11/23/24: Patient slept for 2 hours, was medication compliant. Denies side effect but observed have some hand tremors. Restless, racing thoughts, intrusive, poor boundaries, need multiple redirections most of the time to respect personal space. He is over friendly, bright, manic but appeared to be less manic compared to yesterday. Can be perseverative on discharge, redirectable and need to remind that he is not leaving today a couple of times. He retracted 3 day notice. He seems to be forgetful. To PRNs with mild to moderate effects. He works on puzzle, and cleaning up his room. He has an reasonable planning for the future, appeared to be grandiose no aggressive behavior, can be irritable at times when things not the way he requested. Continue to monitor for sleeping pattern. 11/24/24: Slept slightly improved compared to the night before, he was able to slept for 4 hours. Was medication compliant. Mood is I am happy. I am calm and relaxed . Reports foot pain, nursing have patient to put lotion on, encouraged to elevated legs when he resting as left food appear to be slightly swollen. He said he would like to go back to his [facility]. He also asked if he can call Carla and Max to apologize to them. Read direct patient not calling so many times that may annoying other persons. He admitted that he need to give them a break . Observe want time he was on the phone, appropriate. He is slightly better compared to yesterday, able to sit still, listen to advice/redirection. Even though he has delusional, and grandiose thoughts. Thinking he see a snake in his toilet, seeing his brother coming to see him. Per nursing he had unwitnessed fall when trying to put himself sitting down on the chair but missed it. Slightly better in term of manic behaviors, redirectable and less demanding. Redirected for personal space. Accepted it without any problems. 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 With much effort, Pt remains able to be redirected; examined great rt toe which remains with clear signs of cellulites -Start Ziprasidone -obtained EKG and qtc WNL -Depakote level with much room so will switch depakote to ER so can make at bedtime to help w/ sleep and will increase dose (Depakote IR 1750mg ~ Dep ER 2000) 11/26 Patient remains manic, intrusive, grandiose, tangential. Patient is intrusive to the point where some peers are getting very angry and some feeling provoked. -So far unable to break this manic episode; so far Zyprexa and Geodon have not affected patient and patient is in danger of unintentionally inciting peer aggression. -Thorazine 100 mg did not help either; will try Thorazine 200 mg t.i.d. combined with diazepam 15 mg t.i.d. (10mg did nothing) -if Thorazine does not help, will consider Haldol; also will soon get Depakote level and maybe able to increase other 11/27 Patient remains manic, grandiose, very intrusive with peers and staff, going into patient's rooms, walking up in into rejection himself, getting very close to people making people both angry and scared. Difficult decisions regarding treatment. Discussed case with Dr. Vázquez who agrees with plan For now, will discontinue Thorazine and Valium as life insurance underwriter is somewhat concern that all this sedating medication could add on a delirium to his already manic behaviors. Instead, will try Trileptal to help break manic episode; Trileptal has the least side effect risk profile of options so will give it a try (though not very robust evidence) -Considering Tegretol however this will lower the effective dose of both clozapine and Risperdal by 50% or more creating a confusing treatment regimen; also can affect the liver and bone marrow and patient is already on Depakote and Clozaril -also considering Haldol however patient is already on 2 antipsychotics -also considering Tamoxifen used off-label however increases thrombo embolism risk and can raise the effective doses of clozapine and Risperdal ECT remains the gold standard to treat refractory jacob however patient has a guardian and Vela which would need to be amended 11/28 Patient angry, punching the wall, yelling aggressively, peers is getting scared; 1 peer felt threatened and confronted patient pushed him but both were able to be redirected. Made a threatening remark to staff i'm going to break you... Remains floridly manic, hyperverbal, intrusive... He did say yes to ECT however understands guardian needs to weigh in clinical reasoning: -patient's increasing aggression and agitation seems directly correlated with having had Thorazine and diazepam discontinued. Restarted it for the purpose of patient and milieu safety. However it later came to life insurance underwriter's attention that Thorazine is not 1 of the antipsychotics listed on his community Vela..? Options that are available are Abilify and Haldol. Director Of Enterprise [employer] lowered Thorazine to 100 mg and allowed for 1 last for tonight, again for milieu and patient safety however will discontinue it and will have to see if the other options are helpful Discussed case with colleague Dr. Meza who continues to agree that using Tegretol would cause too much mixing up of med regimen and that best option is to help patient remain safe while Depakote gets a chance to become therapeutic. Depakote level today 108; will continue with Depakote ER 3000mg and get level tomorrow -talked with Patients guardian Breezy Granados who says he has no objection to patient getting ECT 11/29 Patient for the 1st time since manic episodes started, more subdued today and slept from much of the day. During periods when he was awake, remains manic, intrusive, grandiose and saying bizarre things such as I am hairy potters twin and I need to get back to [facility]. -hopefully this is the sign that patient's manic episode is starting to wane; will continue with Depakote ER 3000 mg and get another level tomorrow (The?therapeutic range for acute jacob is 50?125 mcg/mL) 11/30 Still manic -added Abilfy 10mg daily; would prefer to try Haldol (both on Vela) but since Qtc is elevated will try Abilify first...(as mentioned despite qtc elevation, risk of TdP remains very low and Haldol remains an option. 12/01/24: Patient continued to be manic, intrusive, irritable most of the day, making threats. Making grandiose and paranoid delusional statements I need to go back to [place] to protect Jet Goldy . I am . I am the new president of the country . Patient was naked in the savage asking to talk to addiction social worker this morning per staffing reports. Patient remains in the group room at the other hallway. Remain on kitchen restriction, limit access to the other end of the savage. Patient compliant with medications, see PRNs for anxiety and agitation, restless, hyperverbal, hyperactive, irritable, needs a lot redirection,incongruent with mood stating that he is happy and have no anxiety or depression. Poor insight and poor judgment. Denies that he has any order diagnosis or mental health issues except for anger disorder VPA level on 11/30/24: 117.9 (The?therapeutic range for acute jacob is 50?125 mcg/mL) 12/02/24: Patient slept for 9 hours last night. Compliant with meds, less irritable and more pleasant today. Continue to delusional and grandiose. He is calmer compare to yesterday. No naked episode. Discontinue Abilify, start Haldol 5mg TID with goal to control manic/psychotic, racing thoughts/behaviors. Some mild drooling which improving per nursing. Lactulose 20mg BID. (Ammnonia level 60H) Discontinue Abilfy. start Haldol 5mg TID. EKG done- no change compare to previous record. Slightly prolong QTc. 12/03/24: Patient slept for 8 hours, compliant with medications,, appeared to have tremors, and drooling which is not worsening. Patient appeared to be sedated this morning with mild irritable mood, sometimes he hearing from his room loudly, but spend more time in his room today. Slightly less intrusive. Continued to be delusional and grandiose. He has loose stool, Colace and MiraLax was held but continue offer lactulose. We will check ammonia level tomorrow. Observe by lateral lower extremity edema. Hospitalist consult placed. Regarding depakote level: The?therapeutic range for acute jacob is 50?125 mcg/mL, and most patients respond within this range?1https://dailymed.nlm.nih.gov/dailymed/drugInfo.cfm?uojen=[email or web address]?2https://pubmed.ncbi.nlm.nih.gov/55931058.? of note, regarding EKG with prolonged Qtc: The incidence of torsades de pointes (TdP) from antipsychotic-induced QTc prolongation is?very low, estimated at?0.01?0.1%?(1?10 per 10,000 exposures) in clinical practice?1https://pubmed.ncbi.nlm.nih.gov/01208478?2https://pubmed.ncbi.nlm.nih.gov/75554057. ?[And in the cases where someone did actually get TdP], the case fatality of TdP is also low, with?<10%?of TdP episodes resulting in cardiac , 12/04 Patient is doing better; less manic, less intrusive and resting more.? Still making grandiose delusional statements such as he is running for president with Roya Jolly, but certainly symptoms are improving.? He says he is on too much medication and life insurance underwriter agrees to review? -Lowered to Diazepam 5mg TID (down from 10mg) -dc Benadryl 25mg TID -has been refusing Lactulose; will recheck Ammonia; if elevated will start LCarnatine 12/05 remains hypomanic and making grandiose statements; continue treatment plan; continues to refuse lactulose. Will get labs 12/06 Still manic/hypomanic; overall more easily redirected and less hyperactive but still can be loud, intrusive and he continues to make grandiose statements saying he is the boss, he owns different things, he was born in different countries....sometimes yelling loudly in frustration...none of which is baseline -life insurance underwriter tried reality testing however this frustrated patient who remains with impaired insight to his manic episode increase Haldol to total daily dose of 25mg (up from 15mg) Monitoring Qtc ( QTcB Int : 471 ms on 12/06) Ammonia WNL; will lower Lactulose to 20mg daily (down from BID-has not always taken bedtime dose) 12/07 Patient remains manic/hypomanic; will continue current Haldol dose but may increase soon 12/08 remains manic, intrusive and grandiose; child care group leader came in met with him and find some far from baseline. Patient getting angry or today than previously and yelling angrily in the hallway needing to be frequently redirected as he is causing anxiety in the milieu Will increase Haldol to 10 mg t.i.d. If this does not work, will strongly consider tamoxifen as it will take considerable time to petition the court to add ECT to his community [place] 12/09 Remains manic, intrusive with peers. Yelling very angrily this morning in the shower; pretended the door was locked at 1 point. Sometimes yelling loudly in the hallway and slamming doors. Otherwise comes up to staff and peers, typically making unrelated, grandiose statements. Told life insurance underwriter that the police are after him... That we need to find his brother and he could be in [place], [place]... Treatment plan: -patient seems to have regressed some in his progress...(though this is a nuanced observation and the progress alluded to was minimal if even there) For now will continue with Haldol 10 mg t.i.d.. It is difficult to know whether or not Abilify had been helping and that he decompensated a little once it was replaced with Haldol he started decompensating or if nothing has been helpful and his manic symptoms just ebb and flow... -tamoxifen remains an option 12/10 pretty much the same presentation; maybe a little more calm? Difficult to tell. Patient remains intrusive but redirectable. -continue current treatment plan for now; will give a few more days on Haldol to see if patient improves 12/11 Remains manic/hypomanic; maybe easier to redirect but still intrusive; still making bizarre or grandiose statements maybe a little less so. Patient continues to have very angry outburst, slamming doors and hitting the wall, sometimes yelling loudly and aggressively, but again able to be redirected -discussed with staff and since this is that patient may have improved a little bit but not all that much; will continue with Haldol 10 mg t.i.d. but strongly considering switching to Abilify 12/12 Patient reports that he has been feeling more stiff and also that Haldol has been giving him nightmares. Director Of Enterprise Applications discussed this and discussed changing medications to Abilify. Patient agreed with this plan. Also agreed with artane/Trihexyphenidyl for stiffness, likely due to side effect of medication, since patient is allergic to Cogentin (though not clear what allergy is) -will discontinue Haldol and start Abilify; after 5 days of Haldol 10 mg t.i.d., patient's jacob has not really improved. Haldol is also potentially causing patient nightmares and maybe some increased stiffness and has increased risk for prolonged QTC. Abilify was tried in the past but it was a very brief trial so will restart now -life insurance underwriter filling out paperwork to amend [facility] [place] to include E[facility]; even if we are gabriel and patient's jacob resolves with medication management, ECT would have likely resolved this weeks ago and patient will benefit from having ECT listed as a potential treatment 12/15 perhaps hypomania is starting to improve; continue current treatment plan; discussed this with patient who initially seemed to accept it however upset he is not being discharged today. Plan: CV Q 15 minute checks On [facility] ORDER/guardianship Patient is not appropriate for groups or to be in kitchen 1. Jacob DC Haldol (Haldol 10 mg t.i.d. for 5 days with very minimal effect) Start Abilify 20 mg; will titrate start artane/Trihexyphenidyl 1mg bid for increased stiffness, likely medication side effects; patient has a recorded allergy to Cogentin Continue Depakote ER 3000 mg qhs Continue Risperdal 1 mg a.m. and 4 mg q.h.s. Continue Clozaril 400 mg q.h.s.; Level: 403 and Norclozaril 137. DC Thorazine 200mg TID DC Diazpam 10mg TID; will taper and dc once jacob subsides dc Trileptal DC Ziprasidone no effect Dc zyprexa; does not seem to do much HOLD Wellbutrin XL (once jacob resolved likely re-titrate to Wellbutrin 300mg (likely increasing to 450mg triggered manic episode) STARTed Fenobibrate 160mg daily for severely elevated Triacylglycerides of 898 (pt has normal renal function) Continue other home medications -consider Ingrezza -adverse reaction to Bovey (per patient) -consider Tegretol? 2. Great right toe cellulitis Increased to Keflex 500 mg qid for 7 days (discussed increased dose with hospitalist MARIA T) -examined 11/28 and cellulitis is resolving 3. TAG 898 (appears to be fasting)/Cholesterol 319 re-ordered Lipid panel: Trilgyciride 898 down to 581 on 11/18/24. Cholesterol 319 down to 317. AIC 5.5 WNL. Started Fenobibrate 160mg daily (pt has normal renal function) Change diet to Low Fat diet will consider Statin Ordered TSH (lft's WNL): 0.81 WNL Bilateral lower extremity edema Appears euvolemic on exam, encouraged leg elevation. L great toenail fungus We will need outpatient follow up with Podiatry for nail removal Class 3 obesity BMI 36.2 Weight loss encouraged Hypertriglyceridemia/hyperlipidemia Patient started on fenofibrate on November 17 Triglycerides down to 150. LDL cholesterol 124 Encouraged weight loss, encourage healthy food choices. Excessive drooling Seen by speech, swallow function is not a factor in saliva management, and no loss of motor function noted. Continue glycopyrrolate Patient educated on: diagnosis, medication risk/benefits and therapeutic strategies Informed Consent: understands, does not understand and further education needed Reason for continued inpatient stay Substantial Risk for: rapid decompensation Time Spent With Patient Time: Total time managing care of this patient today ____ minutes.
[2024-12-15 20:00] VITALS: BP 153/90; PULSE 111; TEMP 35.8; O2SAT 98
--- NOTE | 2024-12-16 07:43 | P.PNPSI_ITS ---
Subjective Subjective Date of Service: 12/16/24 Reason For Visit: Depressive D/O Schizoaffective Subjective Notes: Conditional Voluntary Healthcare Proxy: No Guardianship: No Medical Problems Affecting Mental Status: No Interim History: 34 yo recurrent intrussive with this provider on rounds today and with following other paitents around- poor sense of boundaries/personal space- s/e drooling- and some dizziness when behnds over co racing thoughts Medication Compliance: Yes Side effects from medications: Yes Attending Groups: Intermittent Review of Systems Acute medical concerns: No Review of Systems: co dizziness with bending over and provider noticed rooling- Mental Status Exam Mental Status Exam Narrative: changes shirt mulitple times over am/mid day- interupts provider and others- Patient Appearance: Bizarre (odd not bizarre) Patient Orientation: Person, Place, Time and Situation Level of Consciousness: Awake Patient Behavior: Talkative, Restless, Invasion - Personal Space and Good Eye Contact Mood Description: Expansive Affect Description: Happy Patient Cognition Impaired: No Ability to Follow Directions: Fair Speech Pattern: Rambling and Poor Articulation Thought Process: Distracted Thought Content: positive for Disorganized Abnormal Motor Activity Signs and Symptoms: Restlessness Judgement: Poor Diagnostics Vital Signs (24Hr): Vital Signs - 24 hr 12/15/24 08:00 12/15/24 20:00 Temperature 96.2 F L 96.5 F L Pulse Rate 117 H 111 H Respiratory Rate 16 Blood Pressure 116/71 153/90 H Pulse Oximetry 98 98 Oxygen Delivery Method Room Air Room Air BMI result Body Mass Index 34.1 Labs 11/28/24 10:37 Labs: Laboratory Results - last 48 hr 12/15/24 08:14 Absolute Neuts (auto) 6.9 Medications Medications Current Medications Acetaminophen (Acetaminophen 325 Mg Tablet) 650 mg PO Q6H PRN PRN Reason: Headache/Pain, Scale 1-10 Last Admin: 12/15/24 17:32 Dose: 650 mg Al Hydroxide/Mg Hydroxide (Magnesium Hydrox/Alum Hydrox 30 Ml Oral.Susp) 30 ml PO Q6H PRN PRN Reason: Heartburn/Nausea Last Admin: 11/21/24 01:55 Dose: 30 ml Aripiprazole (Aripiprazole 30 Mg Tablet) 30 mg PO DAILY STEWART Last Admin: 12/15/24 08:38 Dose: 30 mg Benzocaine (Throat Lozenge, Medicated Lozenge) 1 lozenge MUCOUS MEM Q2H PRN PRN Reason: Sore Throat Last Admin: 12/10/24 14:21 Dose: 1 lozenge Capsaicin (Capsaicin 0.025% Cream 60 Gm Tube) 1 appl TOPICAL TID PRN; Protocol PRN Reason: leg pain Last Admin: 12/15/24 15:51 Dose: 1 appl Clonidine HCl (Clonidine Hcl 0.1 Mg Tablet) 0.1 mg PO Q4H PRN; Protocol PRN Reason: moderate anxiety Last Admin: 12/11/24 13:32 Dose: 0.1 mg Clozapine (Clozapine 100 Mg Tablet) 400 mg PO BEDTIME STEWART Last Admin: 12/15/24 23:26 Dose: 400 mg Diazepam (Diazepam 5 Mg Tablet) 5 mg PO TID STEWART Last Admin: 12/15/24 23:28 Dose: 5 mg Diphenhydramine HCl (Diphenhydramine Hcl 25 Mg Capsule) 25 mg PO TID STEWART On Hold: 12/04/24 22:11 Last Admin: 12/04/24 22:16 Dose: 25 mg Divalproex Sodium (Divalproex Sodium Er 500 Mg Tab.Er.24h) 3,000 mg PO BEDTIME STEWART Last Admin: 12/15/24 23:25 Dose: 3,000 mg Docusate Sodium (Docusate Sodium 100 Mg Capsule) 100 mg PO BID STEWART Last Admin: 12/15/24 23:25 Dose: 100 mg Fenofibrate (Fenofibrate 160 Mg Tablet) 160 mg PO DAILY [facility] Last Admin: 12/15/24 08:38 Dose: 160 mg Fluticasone Propionate (Fluticasone Propionate Nasal 16 Gm Iuka) 1 spray NOSTRIL-B BEDTIME STEWART Last Admin: 12/15/24 23:24 Dose: 1 spray Fluticasone Propionate (Fluticasone Propionate Nasal 16 Gm Iuka) 1 spray NOSTRIL-B DAILY PRN PRN Reason: Nasal allergy Last Admin: 11/24/24 06:25 Dose: 1 spray Glycopyrrolate (Glycopyrrolate 1 Mg Tablet) 1 mg PO TID STEWART Last Admin: 12/15/24 23:27 Dose: 1 mg Ibuprofen (Ibuprofen 400 Mg Tablet) 400 mg PO Q6H PRN PRN Reason: Pain, Moderate(Pain Scale 4-6) Last Admin: 12/15/24 17:31 Dose: 400 mg Lactulose (Lactulose 20 Gm/30 Ml Solution) 20 gm PO DAILY STEWART On Hold: 12/10/24 08:55 Last Admin: 12/10/24 08:39 Dose: 20 gm Lorazepam (Lorazepam 1 Mg Tablet) 1 mg PO Q8H PRN PRN Reason: Anxiety Last Admin: 12/15/24 05:38 Dose: 1 mg Magnesium Hydroxide (Milk Of Magnesia 30 Ml Oral.Susp) 30 ml PO DAILY PRN PRN Reason: Constipation Last Admin: 11/28/24 14:32 Dose: 30 ml Ondansetron HCl (Ondansetron Odt 4 Mg Tab.Rapdis) 4 mg TRANSLINGU Q6H PRN PRN Reason: Nausea and Vomiting Last Admin: 11/28/24 16:14 Dose: 4 mg Polyethylene Glycol (Polyethylene Glycol 3350 17 Gm Powd.Pack) 17 gm PO DAILY STEWART On Hold: 12/04/24 10:12 Last Admin: 12/04/24 10:07 Dose: Not Given Polyethylene Glycol (Polyethylene Glycol 3350 17 Gm Powd.Pack) 17 gm PO DAILY PRN PRN Reason: Constipation Last Admin: 11/28/24 16:16 Dose: 17 gm Risperidone (Risperidone 2 Mg Tablet) 4 mg PO BEDTIME STEWART Last Admin: 12/15/24 23:26 Dose: 4 mg Risperidone (Risperidone 1 Mg Tablet) 1 mg PO DAILY STEAWRT Last Admin: 12/15/24 08:39 Dose: 1 mg Trazodone HCl (Trazodone Hcl 50 Mg Tablet) 50 mg PO BEDTIME MRX1 PRN PRN Reason: Insomnia Last Admin: 12/15/24 23:26 Dose: 50 mg Trihexyphenidyl HCl (Trihexyphenidyl Hcl 2 Mg Tablet) 1 mg PO TID STEWART Last Admin: 12/15/24 23:27 Dose: 1 mg Allergies Allergies Allergy/AdvReac Type Severity Reaction Status Date / Time benztropine (From COGENTIN) Allergy Unknown UNKNOWN Verified 11/16/24 15:51 propranolol (From INDERAL LA) Allergy Unknown UNKNOWN Verified 11/16/24 15:51 chaste tree Allergy Unknown Verified 11/16/24 15:51 lithium Allergy Unknown Verified 11/16/24 15:51 Assessment & Plan Assessment & Plan (1) Schizoaffective disorder, bipolar type: Status: Acute Code(s): F25.0 - Schizoaffective disorder, bipolar type (2) Bilateral edema of lower extremity: Status: Acute Code(s): R60.0 - Localized edema (3) Autism spectrum disorder: Status: Acute Code(s): F84.0 - Autistic disorder (4) Cellulitis: Status: Acute Code(s): L03.90 - Cellulitis, unspecified (5) Class 3 obesity: Status: Acute Code(s): E66.813 - Obesity, class 3 Plan Patient is a 34-year-old male with history of schizoaffective disorder bipolar type, Autism Spectrum Disorder, who lives in a residential, on a community [facility]ela who presents for depression. Patient reports that every 7 weeks (and every 4 months) medications don't work...and I feel depressed.... He says the the depression last anywhere from 2 to 12 days.. And then resolves on it's own without medication changes. Patient reports that he had suicidal ideation a few days ago, no plan but does not now. Patient says sometimes he hears sounds or voices that others do not hear, sometimes laughing noise but not very often and usually just during sleep. Discussed medication regimen and patient said that recently his Depakote was increased because he was having mood swings but it was difficult for him to give details. Discussed medication options and patient agrees to increase Wellbutrin to 450 mg. Formulation/clinical reasoning: Patient reports that episodically he still gets bouts of depression that can last for longer than a week however this seemed to resolve on their own. He is not sure what triggers them. Patient says he is already feeling better now that he is on the unit because of the friendships and interactions he has made since coming to the unit; patient signed a 3 day notice. Discussed medication options and patient agrees to increase Wellbutrin to 450 mg. Landfill Gas Collection Operator wonders if perhaps patient can remain at Wellbutrin 300 mg and just take the extra 150 mg if he starts to feel depressed, sort of as an episodic p.r.n. -patient currently on 2 antipsychotics, including Clozaril and Risperdal; -some TD and pill rolling b/l hand tremor observed; wonder if Risperdal dose could be lowered; consider Ingrezza Of note patient had severely high Triacylglycerides of 898. It appears to have been taken while patient fasting however patient is not sure. TAG this high puts patient at risk for pancreatitis. Will redraw labs tomorrow morning to ensure fasting however for now will treat as if this is an accurate lab Hospital course: 11/18: Continue current management and treatment plan. 11/19: Increase Depakote to 500 mg in AM and continue 1,000 mg HS. 11/20: continue current management and treatment plan. 11/21 Patient has become manic over the past several days. Additional Depakote dose was added but patient remains manic, grandiose, labile and intrusive. 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 Patient at 1 point broke down crying about the of his parents, saying that his mother was murdered but then saying she had a brain bleed.. Patient saying that he is from [place] and is going to go back and live his life and [place]... Initially demanding to be discharged today but was able to be redirected. Patient agrees to increased medications including adding Zyprexa -will hold Wellbutrin; seems likely that increasing Wellbutrin was what triggered manic episode -Increasing bedtime Depakote to 1250 mg -patient hardly slept last night and added Zyprexa 10 mg b.i.d.; plan is to discontinue once jacob subsides -reviewed labs and repeat cholesterol shows highly elevated TAG>500 though not as high as the day before 11/22 Patient did sleep some last night with added Zyprexa. Still manic but a little less intense and though still with some grandiose ideations, much less so. Patient still intrusive to others but redirectable. Patient did agree that he was acting manic yesterday but says he is fine now and wants to discharge. He persisted in demanding for discharge today and expressed frustration when told this is not possible but remained in behavioral control. -Great right toe with cellulitis; started on Keflex -Depakote labs ordered for Wednesday *patient is not stable to return to residential at this time. Will try to get him to retract his 3 day notice but will otherwise file for civil commitment; that said hopefully will not need to go to court and manic episode will resolve 11/23/24: Patient slept for 2 hours, was medication compliant. Denies side effect but observed have some hand tremors. Restless, racing thoughts, intrusive, poor boundaries, need multiple redirections most of the time to respect personal space. He is over friendly, bright, manic but appeared to be less manic compared to yesterday. Can be perseverative on discharge, redirectable and need to remind that he is not leaving today a couple of times. He retracted 3 day notice. He seems to be forgetful. To PRNs with mild to moderate effects. He works on puzzle, and cleaning up his room. He has an reasonable planning for the future, appeared to be grandiose no aggressive behavior, can be irritable at times when things not the way he requested. Continue to monitor for sleeping pattern. 11/24/24: Slept slightly improved compared to the night before, he was able to slept for 4 hours. Was medication compliant. Mood is I am happy. I am calm and relaxed . Reports foot pain, nursing have patient to put lotion on, encouraged to elevated legs when he resting as left food appear to be slightly swollen. He said he would like to go back to his residential. He also asked if he can call Carla and Max to apologize to them. Read direct patient not calling so many times that may annoying other persons. He admitted that he need to give them a break . Observe want time he was on the phone, appropriate. He is slightly better compared to yesterday, able to sit still, listen to advice/redirection. Even though he has delusional, and grandiose thoughts. Thinking he see a snake in his toilet, seeing his brother coming to see him. Per nursing he had unwitnessed fall when trying to put himself sitting down on the chair but missed it. Slightly better in term of manic behaviors, redirectable and less demanding. Redirected for personal space. Accepted it without any problems. 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 With much effort, Pt remains able to be redirected; examined great rt toe which remains with clear signs of cellulites -Start Ziprasidone -obtained EKG and qtc WNL -Depakote level with much room so will switch depakote to ER so can make at bedtime to help w/ sleep and will increase dose (Depakote IR 1750mg ~ Dep ER 2000) 11/26 Patient remains manic, intrusive, grandiose, tangential. Patient is intrusive to the point where some peers are getting very angry and some feeling provoked. -So far unable to break this manic episode; so far Zyprexa and Geodon have not affected patient and patient is in danger of unintentionally inciting peer aggression. -Thorazine 100 mg did not help either; will try Thorazine 200 mg t.i.d. combined with diazepam 15 mg t.i.d. (10mg did nothing) -if Thorazine does not help, will consider Haldol; also will soon get Depakote level and maybe able to increase other 11/27 Patient remains manic, grandiose, very intrusive with peers and staff, going into patient's rooms, walking up in into rejection himself, getting very close to people making people both angry and scared. Difficult decisions regarding treatment. Discussed case with Dr. Vázquez who agrees with plan For now, will discontinue Thorazine and Valium as science writer is somewhat concern that all this sedating medication could add on a delirium to his already manic behaviors. Instead, will try Trileptal to help break manic episode; Trileptal has the least side effect risk profile of options so will give it a try (though not very robust evidence) -Considering Tegretol however this will lower the effective dose of both clozapine and Risperdal by 50% or more creating a confusing treatment regimen; also can affect the liver and bone marrow and patient is already on Depakote and Clozaril -also considering Haldol however patient is already on 2 antipsychotics -also considering Tamoxifen used off-label however increases thrombo embolism risk and can raise the effective doses of clozapine and Risperdal ECT remains the gold standard to treat refractory jacob however patient has a guardian and Vela which would need to be amended 11/28 Patient angry, punching the wall, yelling aggressively, peers is getting scared; 1 peer felt threatened and confronted patient pushed him but both were able to be redirected. Made a threatening remark to staff i'm going to break you... Remains floridly manic, hyperverbal, intrusive... He did say yes to ECT however understands guardian needs to weigh in clinical reasoning: -patient's increasing aggression and agitation seems directly correlated with having had Thorazine and diazepam discontinued. Restarted it for the purpose of patient and milieu safety. However it later came to science writer's attention that Thorazine is not 1 of the antipsychotics listed on his community Vela..? Options that are available are Abilify and Haldol. Landfill [employer] Collection Operator lowered Thorazine to 100 mg and allowed for 1 last for tonight, again for milieu and patient safety however will discontinue it and will have to see if the other options are helpful Discussed case with colleague Dr. Meza who continues to agree that using Tegretol would cause too much mixing up of med regimen and that best option is to help patient remain safe while Depakote gets a chance to become therapeutic. Depakote level today 108; will continue with Depakote ER 3000mg and get level tomorrow -talked with Patients guardian Breezy Roberta who says he has no objection to patient getting ECT 11/29 Patient for the 1st time since manic episodes started, more subdued today and slept from much of the day. During periods when he was awake, remains manic, intrusive, grandiose and saying bizarre things such as I am hairy potters twin and I need to get back to [facility]. -hopefully this is the sign that patient's manic episode is starting to wane; will continue with Depakote ER 3000 mg and get another level tomorrow (The?therapeutic range for acute jacob is 50?125 mcg/mL) 11/30 Still manic -added Abilfy 10mg daily; would prefer to try Haldol (both on Vela) but since Qtc is elevated will try Abilify first...(as mentioned despite qtc elevation, risk of TdP remains very low and Haldol remains an option. 12/01/24: Patient continued to be manic, intrusive, irritable most of the day, making threats. Making grandiose and paranoid delusional statements I need to go back to [place] to protect Jet Goldy . I am . I am the new president of the country . Patient was naked in the savage asking to talk to high school social science teacher this morning per staffing reports. Patient remains in the group room at the other hallway. Remain on kitchen restriction, limit access to the other end of the savage. Patient compliant with medications, see PRNs for anxiety and agitation, restless, hyperverbal, hyperactive, irritable, needs a lot redirection,incongruent with mood stating that he is happy and have no anxiety or depression. Poor insight and poor judgment. Denies that he has any order diagnosis or mental health issues except for anger disorder VPA level on 11/30/24: 117.9 (The?therapeutic range for acute jacob is 50?125 mcg/mL) 12/02/24: Patient slept for 9 hours last night. Compliant with meds, less irritable and more pleasant today. Continue to delusional and grandiose. He is calmer compare to yesterday. No naked episode. Discontinue Abilify, start Haldol 5mg TID with goal to control manic/psychotic, racing thoughts/behaviors. Some mild drooling which improving per nursing. Lactulose 20mg BID. (Ammnonia level 60H) Discontinue Abilfy. start Haldol 5mg TID. EKG done- no change compare to previous record. Slightly prolong QTc. 12/03/24: Patient slept for 8 hours, compliant with medications,, appeared to have tremors, and drooling which is not worsening. Patient appeared to be sedated this morning with mild irritable mood, sometimes he hearing from his room loudly, but spend more time in his room today. Slightly less intrusive. Continued to be delusional and grandiose. He has loose stool, Colace and MiraLax was held but continue offer lactulose. We will check ammonia level tomorrow. Observe by lateral lower extremity edema. Hospitalist consult placed. Regarding depakote level: The?therapeutic range for acute jacob is 50?125 mcg/mL, and most patients respond within this range?1 https://dailymed.nlm.nih.gov/dailymed/drugInfo.cfm?zghuj=0jy799ip-[email or web address] -[email or web address] ?2 https://pubmed.ncbi.nlm.nih.gov/65325603 .? of note, regarding EKG with prolonged Qtc: The incidence of torsades de pointes (TdP) from antipsychotic-induced QTc prolongation is?very low, estimated at?0.01?0.1%?(1?10 per 10,000 exposures) in clinical practice?1 https://pubmed.ncbi.nlm.nih.gov/05251871 ?2 https://pubmed.ncbi.nlm.nih.gov/34644869 . ?[And in the cases where someone did actually get TdP], the case fatality of TdP is also low, with?<10%?of TdP episodes resulting in cardiac , 12/04 Patient is doing better; less manic, less intrusive and resting more.? Still making grandiose delusional statements such as he is running for president with Fluid, but certainly symptoms are improving.? He says he is on too much medication and science writer agrees to review? -Lowered to Diazepam 5mg TID (down from 10mg) -dc Benadryl 25mg TID -has been refusing Lactulose; will recheck Ammonia; if elevated will start LCarnatine 12/05 remains hypomanic and making grandiose statements; continue treatment plan; continues to refuse lactulose. Will get labs 12/06 Still manic/hypomanic; overall more easily redirected and less hyperactive but still can be loud, intrusive and he continues to make grandiose statements saying he is the boss, he owns different things, he was born in different countries....sometimes yelling loudly in frustration...none of which is baseline -science writer tried reality testing however this frustrated patient who remains with impaired insight to his manic episode increase Haldol to total daily dose of 25mg (up from 15mg) Monitoring Qtc ( QTcB Int : 471 ms on 12/06) Ammonia WNL; will lower Lactulose to 20mg daily (down from BID-has not always taken bedtime dose) 12/07 Patient remains manic/hypomanic; will continue current Haldol dose but may increase soon 12/08 remains manic, intrusive and grandiose; group burner machine came in met with him and find some far from baseline. Patient getting angry or today than previously and yelling angrily in the hallway needing to be frequently redirected as he is causing anxiety in the milieu Will increase Haldol to 10 mg t.i.d. If this does not work, will strongly consider tamoxifen as it will take considerable time to petition the court to add ECT to his community [place] 12/09 Remains manic, intrusive with peers. Yelling very angrily this morning in the shower; pretended the door was locked at 1 point. Sometimes yelling loudly in the hallway and slamming doors. Otherwise comes up to staff and peers, typically making unrelated, grandiose statements. Told science writer that the police are after him... That we need to find his brother and he could be in [place], [place]... Treatment plan: -patient seems to have regressed some in his progress...(though this is a nuanced observation and the progress alluded to was minimal if even there) For now will continue with Haldol 10 mg t.i.d.. It is difficult to know whether or not Abilify had been helping and that he decompensated a little once it was replaced with Haldol he started decompensating or if nothing has been helpful and his manic symptoms just ebb and flow... -tamoxifen remains an option 12/10 pretty much the same presentation; maybe a little more calm? Difficult to tell. Patient remains intrusive but redirectable. -continue current treatment plan for now; will give a few more days on Haldol to see if patient improves 12/11 Remains manic/hypomanic; maybe easier to redirect but still intrusive; still making bizarre or grandiose statements maybe a little less so. Patient continues to have very angry outburst, slamming doors and hitting the wall, sometimes yelling loudly and aggressively, but again able to be redirected -discussed with staff and since this is that patient may have improved a little bit but not all that much; will continue with Haldol 10 mg t.i.d. but strongly considering switching to Abilify 12/12 Patient reports that he has been feeling more stiff and also that Haldol has been giving him nightmares. Landfill Gas Collection Operator discussed this and discussed changing medications to Abilify. Patient agreed with this plan. Also agreed with artane/Trihexyphenidyl for stiffness, likely due to side effect of medication, since patient is allergic to Cogentin (though not clear what allergy is) -will discontinue Haldol and start Abilify; after 5 days of Haldol 10 mg t.i.d., patient's jacob has not really improved. Haldol is also potentially causing patient nightmares and maybe some increased stiffness and has increased risk for prolonged QTC. Abilify was tried in the past but it was a very brief trial so will restart now -science writer filling out paperwork to amend [facility] to include ECT; even if we are gabriel and patient's jacob resolves with medication management, ECT would have likely resolved this weeks ago and patient will benefit from having ECT listed as a potential treatment 12/15 perhaps hypomania is starting to improve; continue current treatment plan; discussed this with patient who initially seemed to accept it however upset he is not being discharged today. 12/16 continues disorganized and intrussive but reported to be less, and cooperative/taking medication- CTP Plan: CV Q 15 minute checks On [facility] ORDER/guardianship Patient is not appropriate for groups or to be in kitchen 1. Jacob DC Haldol (Haldol 10 mg t.i.d. for 5 days with very minimal effect) Start Abilify 20 mg; will titrate start artane/Trihexyphenidyl 1mg bid for increased stiffness, likely medication side effects; patient has a recorded allergy to Cogentin Continue Depakote ER 3000 mg qhs Continue Risperdal 1 mg a.m. and 4 mg q.h.s. Continue Clozaril 400 mg q.h.s.; Level: 403 and Norclozaril 137. DC Thorazine 200mg TID DC Diazpam 10mg TID; will taper and dc once jacob subsides dc Trileptal DC Ziprasidone no effect Dc zyprexa; does not seem to do much HOLD Wellbutrin XL (once jacob resolved likely re-titrate to Wellbutrin 300mg (likely increasing to 450mg triggered manic episode) STARTed Fenobibrate 160mg daily for severely elevated Triacylglycerides of 898 (pt has normal renal function) Continue other home medications -consider Ingrezza -adverse reaction to [place] (per patient) -consider Tegretol? 2. Great right toe cellulitis Increased to Keflex 500 mg qid for 7 days (discussed increased dose with hospitalist MARIA T) -examined 11/28 and cellulitis is resolving 3. TAG 898 (appears to be fasting)/Cholesterol 319 re-ordered Lipid panel: Trilgyciride 898 down to 581 on 11/18/24. Cholesterol 319 down to 317. AIC 5.5 WNL. Started Fenobibrate 160mg daily (pt has normal renal function) Change diet to Low Fat diet will consider Statin Ordered TSH (lft's WNL): 0.81 WNL Bilateral lower extremity edema Appears euvolemic on exam, encouraged leg elevation. L great toenail fungus We will need outpatient follow up with Podiatry for nail removal Class 3 obesity BMI 36.2 Weight loss encouraged Hypertriglyceridemia/hyperlipidemia Patient started on fenofibrate on November 17 Triglycerides down to 150. LDL cholesterol 124 Encouraged weight loss, encourage healthy food choices. Excessive drooling Seen by speech, swallow function is not a factor in saliva management, and no loss of motor function noted. Continue glycopyrrolate Patient educated on: medication risk/benefits and other (psychoed about boundaries) Informed Consent: understands and further education needed Reason for continued inpatient stay Substantial Risk for: inability to function and rapid decompensation Time Spent With Patient Time: Total time managing care of this patient today ____ minutes.
[2024-12-16 07:57] VITALS: BP 131/72; PULSE 110; RESP 14; TEMP 36; O2SAT 98
[2024-12-16] MEDS: ARIPiprazole 30 MG TABLET PO (08:27)
[2024-12-16] MEDS: Throat Lozenge, Medicated LOZENGE 1 LOZENGE MUCOUS MEM (10:18)
[2024-12-16 19:58] VITALS: BP 132/71; PULSE 112; TEMP 36.7; O2SAT 96
--- NOTE | 2024-12-17 08:14 | HO.PSYCHPN ---
Subjective Subjective Date of Service: 12/17/24 Reason For Visit: Depressive D/O Schizoaffective Subjective Notes: Conditional Voluntary Interim History: 34 yo appears a bit more contained today- didn't ask for dc- , staff reporting he is much better than presenation originally- denies si/hi/psychosis or s/e of meds- Medication Compliance: Yes Side effects from medications: No (no dizziness today and reports drooling was from anderson ?) Attending Groups: Intermittent Review of Systems Acute medical concerns: No Medical Review of Systems: unchanged Mental Status Exam Mental Status Exam Patient Appearance: Well Grooomed (post shower, less oddly dressed, able to keep personal space from provider ) Patient Orientation: Person, Place, Time and Situation Level of Consciousness: Awake Patient Behavior: Talkative, Cooperative, Invasion - Personal Space (less impaired this am) and Good Eye Contact Mood Description: Calm Affect Description: Expansive (less) Patient Cognition Impaired: No Ability to Follow Directions: Good Speech Pattern: Clear Hallucinations: None Delusions: Not Present Thought Process: Intact and Goal Oriented Abnormal Motor Activity Signs and Symptoms: Restlessness Judgement: Fair Diagnostics Vital Signs (24Hr): Vital Signs - 24 hr 12/16/24 19:58 Temperature 98.1 F Pulse Rate 112 H Blood Pressure 132/71 Pulse Oximetry 96 Oxygen Delivery Method Room Air BMI result Body Mass Index 34.1 Labs 11/28/24 10:37 Labs: Laboratory Results - last 48 hr 12/15/24 08:14 Absolute Neuts (auto) 6.9 Medications Medications Current Medications Acetaminophen (Acetaminophen 325 Mg Tablet) 650 mg PO Q6H PRN PRN Reason: Headache/Pain, Scale 1-10 Last Admin: 12/15/24 17:32 Dose: 650 mg Al Hydroxide/Mg Hydroxide (Magnesium Hydrox/Alum Hydrox 30 Ml Oral.Susp) 30 ml PO Q6H PRN PRN Reason: Heartburn/Nausea Last Admin: 11/21/24 01:55 Dose: 30 ml Aripiprazole (Aripiprazole 30 Mg Tablet) 30 mg PO DAILY [facility] Last Admin: 12/16/24 08:27 Dose: 30 mg Benzocaine (Throat Lozenge, Medicated Lozenge) 1 lozenge MUCOUS MEM Q2H PRN PRN Reason: Sore Throat Last Admin: 12/16/24 10:18 Dose: 1 lozenge Capsaicin (Capsaicin 0.025% Cream 60 Gm Tube) 1 appl TOPICAL TID PRN; Protocol PRN Reason: leg pain Last Admin: 12/16/24 16:57 Dose: 1 appl Clonidine HCl (Clonidine Hcl 0.1 Mg Tablet) 0.1 mg PO Q4H PRN; Protocol PRN Reason: moderate anxiety Last Admin: 12/16/24 14:57 Dose: 0.1 mg Clozapine (Clozapine 100 Mg Tablet) 400 mg PO BEDTIME [facility] Last Admin: 12/16/24 22:47 Dose: 400 mg Diazepam (Diazepam 5 Mg Tablet) 5 mg PO TID [facility] Last Admin: 12/16/24 22:49 Dose: 5 mg Diphenhydramine HCl (Diphenhydramine Hcl 25 Mg Capsule) 25 mg PO TID [facility] On Hold: 12/04/24 22:11 Last Admin: 12/04/24 22:16 Dose: 25 mg Divalproex Sodium (Divalproex Sodium Er 500 Mg Tab.Er.24h) 3,000 mg PO BEDTIME [facility] Last Admin: 12/16/24 22:50 Dose: 3,000 mg Docusate Sodium (Docusate Sodium 100 Mg Capsule) 100 mg PO BID [facility] Last Admin: 12/16/24 22:48 Dose: 100 mg Fenofibrate (Fenofibrate 160 Mg Tablet) 160 mg PO DAILY [facility] Last Admin: 12/16/24 08:27 Dose: 160 mg Fluticasone Propionate (Fluticasone Propionate Nasal 16 Gm [place]) 1 spray NOSTRIL-B BEDTIME [facility] Last Admin: 12/16/24 23:01 Dose: Not Given Fluticasone Propionate (Fluticasone Propionate Nasal 16 Gm [place]) 1 spray NOSTRIL-B DAILY PRN PRN Reason: Nasal allergy Last Admin: 11/24/24 06:25 Dose: 1 spray Glycopyrrolate (Glycopyrrolate 1 Mg Tablet) 1 mg PO TID [facility] Last Admin: 12/16/24 22:48 Dose: 1 mg Ibuprofen (Ibuprofen 400 Mg Tablet) 400 mg PO Q6H PRN PRN Reason: Pain, Moderate(Pain Scale 4-6) Last Admin: 12/16/24 16:56 Dose: 400 mg Lactulose (Lactulose 20 Gm/30 Ml Solution) 20 gm PO DAILY [facility] On Hold: 12/10/24 08:55 Last Admin: 12/10/24 08:39 Dose: 20 gm Lorazepam (Lorazepam 1 Mg Tablet) 1 mg PO Q8H PRN PRN Reason: Anxiety Last Admin: 12/16/24 14:58 Dose: 1 mg Magnesium Hydroxide (Milk Of Magnesia 30 Ml Oral.Susp) 30 ml PO DAILY PRN PRN Reason: Constipation Last Admin: 11/28/24 14:32 Dose: 30 ml Ondansetron HCl (Ondansetron Odt 4 Mg Tab.Rapdis) 4 mg TRANSLINGU Q6H PRN PRN Reason: Nausea and Vomiting Last Admin: 11/28/24 16:14 Dose: 4 mg Polyethylene Glycol (Polyethylene Glycol 3350 17 Gm Powd.Pack) 17 gm PO DAILY [facility] On Hold: 12/04/24 10:12 Last Admin: 12/04/24 10:07 Dose: Not Given Polyethylene Glycol (Polyethylene Glycol 3350 17 Gm Powd.Pack) 17 gm PO DAILY PRN PRN Reason: Constipation Last Admin: 11/28/24 16:16 Dose: 17 gm Risperidone (Risperidone 2 Mg Tablet) 4 mg PO BEDTIME [facility] Last Admin: 12/16/24 22:48 Dose: 4 mg Risperidone (Risperidone 1 Mg Tablet) 1 mg PO DAILY [facility] Last Admin: 12/16/24 08:27 Dose: 1 mg Trazodone HCl (Trazodone Hcl 50 Mg Tablet) 50 mg PO BEDTIME MRX1 PRN PRN Reason: Insomnia Last Admin: 12/16/24 22:48 Dose: 50 mg Trihexyphenidyl HCl (Trihexyphenidyl Hcl 2 Mg Tablet) 1 mg PO TID [facility] Last Admin: 12/16/24 22:49 Dose: 1 mg Allergies Allergies Allergy/AdvReac Type Severity Reaction Status Date / Time benztropine (From COGENTIN) Allergy Unknown UNKNOWN Verified 11/16/24 15:51 propranolol (From INDERAL [place]) Allergy Unknown UNKNOWN Verified 11/16/24 15:51 chaste tree Allergy Unknown Verified 11/16/24 15:51 lithium Allergy Unknown Verified 11/16/24 15:51 Assessment & Plan Assessment & Plan (1) Schizoaffective disorder, bipolar type: Status: Acute Code(s): F25.0 - Schizoaffective disorder, bipolar type (2) Bilateral edema of lower extremity: Status: Acute Code(s): R60.0 - Localized edema (3) Autism spectrum disorder: Status: Acute Code(s): F84.0 - Autistic disorder (4) Cellulitis: Status: Acute Code(s): L03.90 - Cellulitis, unspecified (5) Class 3 obesity: Status: Acute Code(s): E66.813 - Obesity, class 3 Plan Patient is a 34-year-old male with history of schizoaffective disorder bipolar type, Autism Spectrum Disorder, who lives in a long-term, on a [facility]ela who presents for depression. Patient reports that every 7 weeks (and every 4 months) medications don't work...and I feel depressed.... He says the the depression last anywhere from 2 to 12 days.. And then resolves on it's own without medication changes. Patient reports that he had suicidal ideation a few days ago, no plan but does not now. Patient says sometimes he hears sounds or voices that others do not hear, sometimes laughing noise but not very often and usually just during sleep. Discussed medication regimen and patient said that recently his Depakote was increased because he was having mood swings but it was difficult for him to give details. Discussed medication options and patient agrees to increase Wellbutrin to 450 mg. Formulation/clinical reasoning: Patient reports that episodically he still gets bouts of depression that can last for longer than a week however this seemed to resolve on their own. He is not sure what triggers them. Patient says he is already feeling better now that he is on the unit because of the friendships and interactions he has made since coming to the unit; patient signed a 3 day notice. Discussed medication options and patient agrees to increase Wellbutrin to 450 mg. Pharmacy Clerk wonders if perhaps patient can remain at Wellbutrin 300 mg and just take the extra 150 mg if he starts to feel depressed, sort of as an episodic p.r.n. -patient currently on 2 antipsychotics, including Clozaril and Risperdal; -some TD and pill rolling b/l hand tremor observed; wonder if Risperdal dose could be lowered; consider Ingrezza Of note patient had severely high Triacylglycerides of 898. It appears to have been taken while patient fasting however patient is not sure. TAG this high puts patient at risk for pancreatitis. Will redraw labs tomorrow morning to ensure fasting however for now will treat as if this is an accurate lab Hospital course: 11/18: Continue current management and treatment plan. 11/19: Increase Depakote to 500 mg in AM and continue 1,000 mg HS. 11/20: continue current management and treatment plan. 11/21 Patient has become manic over the past several days. Additional Depakote dose was added but patient remains manic, grandiose, labile and intrusive. 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 Patient at 1 point broke down crying about the of his parents, saying that his mother was murdered but then saying she had a brain bleed.. Patient saying that he is from [place] and is going to go back and live his life and [place]... Initially demanding to be discharged today but was able to be redirected. Patient agrees to increased medications including adding Zyprexa -will hold Wellbutrin; seems likely that increasing Wellbutrin was what triggered manic episode -Increasing bedtime Depakote to 1250 mg -patient hardly slept last night and added Zyprexa 10 mg b.i.d.; plan is to discontinue once jacob subsides -reviewed labs and repeat cholesterol shows highly elevated TAG>500 though not as high as the day before 11/22 Patient did sleep some last night with added Zyprexa. Still manic but a little less intense and though still with some grandiose ideations, much less so. Patient still intrusive to others but redirectable. Patient did agree that he was acting manic yesterday but says he is fine now and wants to discharge. He persisted in demanding for discharge today and expressed frustration when told this is not possible but remained in behavioral control. -Great right toe with cellulitis; started on Keflex -Depakote labs ordered for Wednesday *patient is not stable to return to long-term at this time. Will try to get him to retract his 3 day notice but will otherwise file for civil commitment; that said hopefully will not need to go to court and manic episode will resolve 11/23/24: Patient slept for 2 hours, was medication compliant. Denies side effect but observed have some hand tremors. Restless, racing thoughts, intrusive, poor boundaries, need multiple redirections most of the time to respect personal space. He is over friendly, bright, manic but appeared to be less manic compared to yesterday. Can be perseverative on discharge, redirectable and need to remind that he is not leaving today a couple of times. He retracted 3 day notice. He seems to be forgetful. To PRNs with mild to moderate effects. He works on [employer], and cleaning up his room. He has an reasonable planning for the future, appeared to be grandiose no aggressive behavior, can be irritable at times when things not the way he requested. Continue to monitor for sleeping pattern. 11/24/24: Slept slightly improved compared to the night before, he was able to slept for 4 hours. Was medication compliant. Mood is I am happy. I am calm and relaxed . Reports foot pain, nursing have patient to put lotion on, encouraged to elevated legs when he resting as left food appear to be slightly swollen. He said he would like to go back to his long-term. He also asked if he can call Carla and Max to apologize to them. Read direct patient not calling so many times that may annoying other persons. He admitted that he need to give them a break . Observe want time he was on the phone, appropriate. He is slightly better compared to yesterday, able to sit still, listen to advice/redirection. Even though he has delusional, and grandiose thoughts. Thinking he see a snake in his toilet, seeing his brother coming to see him. Per nursing he had unwitnessed fall when trying to put himself sitting down on the chair but missed it. Slightly better in term of manic behaviors, redirectable and less demanding. Redirected for personal space. Accepted it without any problems. 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 With much effort, Pt remains able to be redirected; examined great rt toe which remains with clear signs of cellulites -Start Ziprasidone -obtained EKG and qtc WNL -Depakote level with much room so will switch depakote to ER so can make at bedtime to help w/ sleep and will increase dose (Depakote IR 1750mg ~ Dep ER 2000) 11/26 Patient remains manic, intrusive, grandiose, tangential. Patient is intrusive to the point where some peers are getting very angry and some feeling provoked. -So far unable to break this manic episode; so far Zyprexa and Geodon have not affected patient and patient is in danger of unintentionally inciting peer aggression. -Thorazine 100 mg did not help either; will try Thorazine 200 mg t.i.d. combined with diazepam 15 mg t.i.d. (10mg did nothing) -if Thorazine does not help, will consider Haldol; also will soon get Depakote level and maybe able to increase other 11/27 Patient remains manic, grandiose, very intrusive with peers and staff, going into patient's rooms, walking up in into rejection himself, getting very close to people making people both angry and scared. Difficult decisions regarding treatment. Discussed case with Dr. Vázquez who agrees with plan For now, will discontinue Thorazine and Valium as ad copy writer is somewhat concern that all this sedating medication could add on a delirium to his already manic behaviors. Instead, will try Trileptal to help break manic episode; Trileptal has the least side effect risk profile of options so will give it a try (though not very robust evidence) -Considering Tegretol however this will lower the effective dose of both clozapine and Risperdal by 50% or more creating a confusing treatment regimen; also can affect the liver and bone marrow and patient is already on Depakote and Clozaril -also considering Haldol however patient is already on 2 antipsychotics -also considering Tamoxifen used off-label however increases thrombo embolism risk and can raise the effective doses of clozapine and Risperdal ECT remains the gold standard to treat refractory jacob however patient has a guardian and Vela which would need to be amended 11/28 Patient angry, punching the wall, yelling aggressively, peers is getting scared; 1 peer felt threatened and confronted patient pushed him but both were able to be redirected. Made a threatening remark to staff i'm going to break you... Remains floridly manic, hyperverbal, intrusive... He did say yes to ECT however understands guardian needs to weigh in clinical reasoning: -patient's increasing aggression and agitation seems directly correlated with having had Thorazine and diazepam discontinued. Restarted it for the purpose of patient and milieu safety. However it later came to ad copy writer's attention that Thorazine is not 1 of the antipsychotics listed on his community Vela..? Options that are available are Abilify and Haldol. Pharmacy Clerk lowered Thorazine to 100 mg and allowed for 1 last for tonight, again for milieu and patient safety however will discontinue it and will have to see if the other options are helpful Discussed case with colleague Dr. Meza who continues to agree that using Tegretol would cause too much mixing up of med regimen and that best option is to help patient remain safe while Depakote gets a chance to become therapeutic. Depakote level today 108; will continue with Depakote ER 3000mg and get level tomorrow -talked with Patients guardian Breezy Granados who says he has no objection to patient getting ECT 11/29 Patient for the 1st time since manic episodes started, more subdued today and slept from much of the day. During periods when he was awake, remains manic, intrusive, grandiose and saying bizarre things such as I am hairy potters twin and I need to get back to [facility]. -hopefully this is the sign that patient's manic episode is starting to wane; will continue with Depakote ER 3000 mg and get another level tomorrow (The?therapeutic range for acute jacob is 50?125 mcg/mL) 11/30 Still manic -added Abilfy 10mg daily; would prefer to try Haldol (both on Vela) but since Qtc is elevated will try Abilify first...(as mentioned despite qtc elevation, risk of TdP remains very low and Haldol remains an option. 12/01/24: Patient continued to be manic, intrusive, irritable most of the day, making threats. Making grandiose and paranoid delusional statements I need to go back to [place] to protect Jet Goldy . I am . I am the new president of the country . Patient was naked in the savage asking to talk to social work assistant this morning per staffing reports. Patient remains in the group room at the other hallway. Remain on kitchen restriction, limit access to the other end of the savage. Patient compliant with medications, see PRNs for anxiety and agitation, restless, hyperverbal, hyperactive, irritable, needs a lot redirection,incongruent with mood stating that he is happy and have no anxiety or depression. Poor insight and poor judgment. Denies that he has any order diagnosis or mental health issues except for anger disorder VPA level on 11/30/24: 117.9 (The?therapeutic range for acute jacob is 50?125 mcg/mL) 12/02/24: Patient slept for 9 hours last night. Compliant with meds, less irritable and more pleasant today. Continue to delusional and grandiose. He is calmer compare to yesterday. No naked episode. Discontinue Abilify, start Haldol 5mg TID with goal to control manic/psychotic, racing thoughts/behaviors. Some mild drooling which improving per nursing. Lactulose 20mg BID. (Ammnonia level 60H) Discontinue Abilfy. start Haldol 5mg TID. EKG done- no change compare to previous record. Slightly prolong QTc. 12/03/24: Patient slept for 8 hours, compliant with medications,, appeared to have tremors, and drooling which is not worsening. Patient appeared to be sedated this morning with mild irritable mood, sometimes he hearing from his room loudly, but spend more time in his room today. Slightly less intrusive. Continued to be delusional and grandiose. He has loose stool, Colace and MiraLax was held but continue offer lactulose. We will check ammonia level tomorrow. Observe by lateral lower extremity edema. Hospitalist consult placed. Regarding depakote level: The?therapeutic range for acute jacob is 50?125 mcg/mL, and most patients respond within this range?1https://dailymed.nlm.nih.gov/dailymed/drugInfo.cfm?mfepl=[email or web address]?2https://pubmed.ncbi.nlm.nih.gov/12984156.? of note, regarding EKG with prolonged Qtc: The incidence of torsades de pointes (TdP) from antipsychotic-induced QTc prolongation is?very low, estimated at?0.01?0.1%?(1?10 per 10,000 exposures) in clinical practice?1https://pubmed.ncbi.nlm.nih.gov/14815824?2https://pubmed.ncbi.nlm.nih.gov/43513543. ?[And in the cases where someone did actually get TdP], the case fatality of TdP is also low, with?<10%?of TdP episodes resulting in cardiac , 12/04 Patient is doing better; less manic, less intrusive and resting more.? Still making grandiose delusional statements such as he is running for president with Roya BlairSobresalen, but certainly symptoms are improving.? He says he is on too much medication and ad copy writer agrees to review? -Lowered to Diazepam 5mg TID (down from 10mg) -dc Benadryl 25mg TID -has been refusing Lactulose; will recheck Ammonia; if elevated will start LCarnatine 12/05 remains hypomanic and making grandiose statements; continue treatment plan; continues to refuse lactulose. Will get labs 12/06 Still manic/hypomanic; overall more easily redirected and less hyperactive but still can be loud, intrusive and he continues to make grandiose statements saying he is the boss, he owns different things, he was born in different countries....sometimes yelling loudly in frustration...none of which is baseline -ad copy writer tried reality testing however this frustrated patient who remains with impaired insight to his manic episode increase Haldol to total daily dose of 25mg (up from 15mg) Monitoring Qtc ( QTcB Int : 471 ms on 12/06) Ammonia WNL; will lower Lactulose to 20mg daily (down from BID-has not always taken bedtime dose) 12/07 Patient remains manic/hypomanic; will continue current Haldol dose but may increase soon 12/08 remains manic, intrusive and grandiose; printed circuit board reworker came in met with him and find some far from baseline. Patient getting angry or today than previously and yelling angrily in the hallway needing to be frequently redirected as he is causing anxiety in the milieu Will increase Haldol to 10 mg t.i.d. If this does not work, will strongly consider tamoxifen as it will take considerable time to petition the court to add ECT to his community [place] 12/09 Remains manic, intrusive with peers. Yelling very angrily this morning in the shower; pretended the door was locked at 1 point. Sometimes yelling loudly in the hallway and slamming doors. Otherwise comes up to staff and peers, typically making unrelated, grandiose statements. Told ad copy writer that the police are after him... That we need to find his brother and he could be in [place], [place]... Treatment plan: -patient seems to have regressed some in his progress...(though this is a nuanced observation and the progress alluded to was minimal if even there) For now will continue with Haldol 10 mg t.i.d.. It is difficult to know whether or not Abilify had been helping and that he decompensated a little once it was replaced with Haldol he started decompensating or if nothing has been helpful and his manic symptoms just ebb and flow... -tamoxifen remains an option 12/10 pretty much the same presentation; maybe a little more calm? Difficult to tell. Patient remains intrusive but redirectable. -continue current treatment plan for now; will give a few more days on Haldol to see if patient improves 12/11 Remains manic/hypomanic; maybe easier to redirect but still intrusive; still making bizarre or grandiose statements maybe a little less so. Patient continues to have very angry outburst, slamming doors and hitting the wall, sometimes yelling loudly and aggressively, but again able to be redirected -discussed with staff and since this is that patient may have improved a little bit but not all that much; will continue with Haldol 10 mg t.i.d. but strongly considering switching to Abilify 12/12 Patient reports that he has been feeling more stiff and also that Haldol has been giving him nightmares. Pharmacy Clerk discussed this and discussed changing medications to Abilify. Patient agreed with this plan. Also agreed with artane/Trihexyphenidyl for stiffness, likely due to side effect of medication, since patient is allergic to Cogentin (though not clear what allergy is) -will discontinue Haldol and start Abilify; after 5 days of Haldol 10 mg t.i.d., patient's jacob has not really improved. Haldol is also potentially causing patient nightmares and maybe some increased stiffness and has increased risk for prolonged QTC. Abilify was tried in the past but it was a very brief trial so will restart now -ad copy writer filling out paperwork to amend [facility] [place] include [place]; even if we are gabriel and patient's jacob resolves with medication management, ECT would have likely resolved this weeks ago and patient will benefit from having ECT listed as a potential treatment 12/15 perhaps hypomania is starting to improve; continue current treatment plan; discussed this with patient who initially seemed to accept it however upset he is not being discharged today. 12/16 continues disorganized and intrussive but reported to be less, and cooperative/taking medication- CTP 12/17 seemed in better control at least this am- CTP Plan: CV Q 15 minute checks On [facility] ORDER/guardianship Patient is not appropriate for groups or to be in kitchen 1. Jacob DC Haldol (Haldol 10 mg t.i.d. for 5 days with very minimal effect) Start Abilify 20 mg; will titrate start artane/Trihexyphenidyl 1mg bid for increased stiffness, likely medication side effects; patient has a recorded allergy to Cogentin Continue Depakote ER 3000 mg qhs Continue Risperdal 1 mg a.m. and 4 mg q.h.s. Continue Clozaril 400 mg q.h.s.; Level: 403 and Norclozaril 137. DC Thorazine 200mg TID DC Diazpam 10mg TID; will taper and dc once jacob subsides dc Trileptal DC Ziprasidone no effect Dc zyprexa; does not seem to do much HOLD Wellbutrin XL (once jacob resolved likely re-titrate to Wellbutrin 300mg (likely increasing to 450mg triggered manic episode) STARTed Fenobibrate 160mg daily for severely elevated Triacylglycerides of 898 (pt has normal renal function) Continue other home medications -consider Ingrezza -adverse reaction to [place] (per patient) -consider Tegretol? 2. Great right toe cellulitis Increased to Keflex 500 mg qid for 7 days (discussed increased dose with hospitalist MARIA T) -examined 11/28 and cellulitis is resolving 3. TAG 898 (appears to be fasting)/Cholesterol 319 re-ordered Lipid panel: Trilgyciride 898 down to 581 on 11/18/24. Cholesterol 319 down to 317. AIC 5.5 WNL. Started Fenobibrate 160mg daily (pt has normal renal function) Change diet to Low Fat diet will consider Statin Ordered TSH (lft's WNL): 0.81 WNL Bilateral lower extremity edema Appears euvolemic on exam, encouraged leg elevation. L great toenail fungus We will need outpatient follow up with Podiatry for nail removal Class 3 obesity BMI 36.2 Weight loss encouraged Hypertriglyceridemia/hyperlipidemia Patient started on fenofibrate on November 17 Triglycerides down to 150. LDL cholesterol 124 Encouraged weight loss, encourage healthy food choices. Excessive drooling Seen by speech, swallow function is not a factor in saliva management, and no loss of motor function noted. Continue glycopyrrolate Reason for continued inpatient stay Substantial Risk for: inability to function and rapid decompensation Time Spent With Patient Time: Total time managing care of this patient today ____ minutes.
[2024-12-17 10:46] VITALS: BP 136/79; PULSE 115; RESP 14; TEMP 36.3; O2SAT 94
[2024-12-17] MEDS: ARIPiprazole 30 MG TABLET PO (10:54)
[2024-12-17 20:00] VITALS: BP 155/67; PULSE 113; RESP 18; TEMP 36.7; O2SAT 96
[2024-12-18 07:52] VITALS: BP 118/76; PULSE 123; TEMP 35.8; O2SAT 93
[2024-12-18] MEDS: ARIPiprazole 30 MG TABLET PO (09:18)
--- NOTE | 2024-12-18 09:44 | P.PNPSI_ITS ---
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 However overall seems to be approaching baseline Mental Status Exam Mental Status Exam Narrative: Pt is alert and oriented; behavior is still little hypomanic but overall seems to be more calm; not really hyperverbal anymore; still intrusive with peers but remains easily redirectable; patient is not in distress; dressed in casual attire, unkempt but adequate hygiene: mood is described as good and affect less expansive; eye contact appropriate; Speech remains verbose but not pressured and not really rambling; intermittent psychomotor agitation present; thought process can be goal oriented, but also tangential; Thought content remains with grandiose delusions; denies any SI/HI. Denies AVH Patients insight and judgment impaired but improving Diagnostics Vital Signs (24Hr): Vital Signs - 24 hr 12/17/24 10:46 12/17/24 20:00 12/18/24 07:52 Temperature 97.3 F 98.1 F 96.4 F L Pulse Rate 115 H 113 H 123 H Respiratory Rate 14 18 Blood Pressure 136/79 155/67 H 118/76 Pulse Oximetry 94 96 93 Oxygen Delivery Method Room Air Room Air Room Air BMI result Body Mass Index 34.1 Labs 11/28/24 10:37 Medications Medications Current Medications Acetaminophen (Acetaminophen 325 Mg Tablet) 650 mg PO Q6H PRN PRN Reason: Headache/Pain, Scale 1-10 Last Admin: 12/15/24 17:32 Dose: 650 mg Al Hydroxide/Mg Hydroxide (Magnesium Hydrox/Alum Hydrox 30 Ml Oral.Susp) 30 ml PO Q6H PRN PRN Reason: Heartburn/Nausea Last Admin: 11/21/24 01:55 Dose: 30 ml Aripiprazole (Aripiprazole 30 Mg Tablet) 30 mg PO DAILY STEWART Last Admin: 12/18/24 09:18 Dose: 30 mg Benzocaine (Throat Lozenge, Medicated Lozenge) 1 lozenge MUCOUS MEM Q2H PRN PRN Reason: Sore Throat Last Admin: 12/16/24 10:18 Dose: 1 lozenge Capsaicin (Capsaicin 0.025% Cream 60 Gm Tube) 1 appl TOPICAL TID PRN; Protocol PRN Reason: leg pain Last Admin: 12/16/24 16:57 Dose: 1 appl Clonidine HCl (Clonidine Hcl 0.1 Mg Tablet) 0.1 mg PO Q4H PRN; Protocol PRN Reason: moderate anxiety Last Admin: 12/16/24 14:57 Dose: 0.1 mg Clozapine (Clozapine 100 Mg Tablet) 400 mg PO BEDTIME STEWART Last Admin: 12/17/24 21:24 Dose: 400 mg Diazepam (Diazepam 5 Mg Tablet) 5 mg PO TID STEWART Last Admin: 12/18/24 09:18 Dose: 5 mg Diphenhydramine HCl (Diphenhydramine Hcl 25 Mg Capsule) 25 mg PO TID STEWART On Hold: 12/04/24 22:11 Last Admin: 12/04/24 22:16 Dose: 25 mg Divalproex Sodium (Divalproex Sodium Er 500 Mg Tab.Er.24h) 3,000 mg PO BEDTIME STEWART Last Admin: 12/17/24 21:23 Dose: 3,000 mg Docusate Sodium (Docusate Sodium 100 Mg Capsule) 100 mg PO BID STEWART Last Admin: 12/18/24 09:18 Dose: 100 mg Fenofibrate (Fenofibrate 160 Mg Tablet) 160 mg PO DAILY STWEART Last Admin: 12/18/24 09:18 Dose: 160 mg Fluticasone Propionate (Fluticasone Propionate Nasal 16 Gm Hague) 1 spray NOSTRIL-B BEDTIME STEWART Last Admin: 12/17/24 21:23 Dose: 1 spray Fluticasone Propionate (Fluticasone Propionate Nasal 16 Gm Hague) 1 spray NOSTRIL-B DAILY PRN PRN Reason: Nasal allergy Last Admin: 11/24/24 06:25 Dose: 1 spray Glycopyrrolate (Glycopyrrolate 1 Mg Tablet) 1 mg PO TID STEWART Last Admin: 12/18/24 09:18 Dose: 1 mg Ibuprofen (Ibuprofen 400 Mg Tablet) 400 mg PO Q6H PRN PRN Reason: Pain, Moderate(Pain Scale 4-6) Last Admin: 12/16/24 16:56 Dose: 400 mg Lactulose (Lactulose 20 Gm/30 Ml Solution) 20 gm PO DAILY STEWART On Hold: 12/10/24 08:55 Last Admin: 12/10/24 08:39 Dose: 20 gm Lorazepam (Lorazepam 1 Mg Tablet) 1 mg PO Q8H PRN PRN Reason: Anxiety Last Admin: 12/16/24 14:58 Dose: 1 mg Magnesium Hydroxide (Milk Of Magnesia 30 Ml Oral.Susp) 30 ml PO DAILY PRN PRN Reason: Constipation Last Admin: 11/28/24 14:32 Dose: 30 ml Ondansetron HCl (Ondansetron Odt 4 Mg Tab.Rapdis) 4 mg TRANSLINGU Q6H PRN PRN Reason: Nausea and Vomiting Last Admin: 11/28/24 16:14 Dose: 4 mg Polyethylene Glycol (Polyethylene Glycol 3350 17 Gm Powd.Pack) 17 gm PO DAILY STEWART On Hold: 12/04/24 10:12 Last Admin: 12/04/24 10:07 Dose: Not Given Polyethylene Glycol (Polyethylene Glycol 3350 17 Gm Powd.Pack) 17 gm PO DAILY PRN PRN Reason: Constipation Last Admin: 11/28/24 16:16 Dose: 17 gm Risperidone (Risperidone 2 Mg Tablet) 4 mg PO BEDTIME STEWART Last Admin: 12/17/24 21:24 Dose: 4 mg Risperidone (Risperidone 1 Mg Tablet) 1 mg PO DAILY STEWART Last Admin: 12/18/24 09:18 Dose: 1 mg Trazodone HCl (Trazodone Hcl 50 Mg Tablet) 50 mg PO BEDTIME MRX1 PRN PRN Reason: Insomnia Last Admin: 12/17/24 21:27 Dose: 50 mg Trihexyphenidyl HCl (Trihexyphenidyl Hcl 2 Mg Tablet) 1 mg PO TID STEWART Last Admin: 12/18/24 09:18 Dose: 1 mg Allergies Allergies Allergy/AdvReac Type Severity Reaction Status Date / Time benztropine (From COGENTIN) Allergy Unknown UNKNOWN Verified 11/16/24 15:51 propranolol (From INDERAL LA) Allergy Unknown UNKNOWN Verified 11/16/24 15:51 chaste tree Allergy Unknown Verified 11/16/24 15:51 lithium Allergy Unknown Verified 11/16/24 15:51 Assessment & Plan Assessment & Plan (1) Schizoaffective disorder, bipolar type: Status: Acute Code(s): F25.0 - Schizoaffective disorder, bipolar type (2) Bilateral edema of lower extremity: Status: Acute Code(s): R60.0 - Localized edema (3) Autism spectrum disorder: Status: Acute Code(s): F84.0 - Autistic disorder (4) Cellulitis: Status: Acute Code(s): L03.90 - Cellulitis, unspecified (5) Class 3 obesity: Status: Acute Code(s): E66.813 - Obesity, class 3 Plan Patient is a 34-year-old male with history of schizoaffective disorder bipolar type, Autism Spectrum Disorder, who lives in a chcf, [place] [facility] [place] who presents for depression. Patient reports that every 7 weeks (and every 4 months) medications don't work...and I feel depressed.... He says the the depression last anywhere from 2 to 12 days.. And then resolves on it's own without medication changes. Patient reports that he had suicidal ideation a few days ago, no plan but does not now. Patient says sometimes he hears sounds or voices that others do not hear, sometimes laughing noise but not very often and usually just during sleep. Discussed medication regimen and patient said that recently his Depakote was increased because he was having mood swings but it was difficult for him to give details. Discussed medication options and patient agrees to increase Wellbutrin to 450 mg. Formulation/clinical reasoning: Patient reports that episodically he still gets bouts of depression that can last for longer than a week however this seemed to resolve on their own. He is not sure what triggers them. Patient says he is already feeling better now that he is on the unit because of the friendships and interactions he has made since coming to the unit; patient signed a 3 day notice. Discussed medication options and patient agrees to increase Wellbutrin to 450 mg. Flute Teacher wonders if perhaps patient can remain at Wellbutrin 300 mg and just take the extra 150 mg if he starts to feel depressed, sort of as an episodic p.r.n. -patient currently on 2 antipsychotics, including Clozaril and Risperdal; -some TD and pill rolling b/l hand tremor observed; wonder if Risperdal dose could be lowered; consider Ingrezza Of note patient had severely high Triacylglycerides of 898. It appears to have been taken while patient fasting however patient is not sure. TAG this high puts patient at risk for pancreatitis. Will redraw labs tomorrow morning to ensure fasting however for now will treat as if this is an accurate lab Hospital course: 11/18: Continue current management and treatment plan. 11/19: Increase Depakote to 500 mg in AM and continue 1,000 mg HS. 11/20: continue current management and treatment plan. 11/21 Patient has become manic over the past several days. Additional Depakote dose was added but patient remains manic, grandiose, labile and intrusive. 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 Patient at 1 point broke down crying about the of his parents, saying that his mother was murdered but then saying she had a brain bleed.. Patient saying that he is from [place] and is going to go back and live his life and [place]... Initially demanding to be discharged today but was able to be redirected. Patient agrees to increased medications including adding Zyprexa -will hold Wellbutrin; seems likely that increasing Wellbutrin was what triggered manic episode -Increasing bedtime Depakote to 1250 mg -patient hardly slept last night and added Zyprexa 10 mg b.i.d.; plan is to discontinue once jacob subsides -reviewed labs and repeat cholesterol shows highly elevated TAG>500 though not as high as the day before 11/22 Patient did sleep some last night with added Zyprexa. Still manic but a little less intense and though still with some grandiose ideations, much less so. Patient still intrusive to others but redirectable. Patient did agree that he was acting manic yesterday but says he is fine now and wants to discharge. He persisted in demanding for discharge today and expressed frustration when told this is not possible but remained in behavioral control. -Great right toe with cellulitis; started on Keflex -Depakote labs ordered for Wednesday *patient is not stable to return to chcf at this time. Will try to get him to retract his 3 day notice but will otherwise file for civil commitment; that said hopefully will not need to go to court and manic episode will resolve 11/23/24: Patient slept for 2 hours, was medication compliant. Denies side effect but observed have some hand tremors. Restless, racing thoughts, intrusive, poor boundaries, need multiple redirections most of the time to respect personal space. He is over friendly, bright, manic but appeared to be less manic compared to yesterday. Can be perseverative on discharge, redirectable and need to remind that he is not leaving today a couple of times. He retracted 3 day notice. He seems to be forgetful. To PRNs with mild to moderate effects. He works on [employer], and cleaning up his room. He has an reasonable planning for the future, appeared to be grandiose no aggressive behavior, can be irritable at times when things not the way he requested. Continue to monitor for sleeping pattern. 11/24/24: Slept slightly improved compared to the night before, he was able to slept for 4 hours. Was medication compliant. Mood is I am happy. I am calm and relaxed . Reports foot pain, nursing have patient to put lotion on, encouraged to elevated legs when he resting as left food appear to be slightly swollen. He said he would like to go back to his chcf. He also asked if he can call Carla and Max to apologize to them. Read direct patient not calling so many times that may annoying other persons. He admitted that he need to give them a break . Observe want time he was on the phone, appropriate. He is slightly better compared to yesterday, able to sit still, listen to advice/redirection. Even though he has delusional, and grandiose thoughts. Thinking he see a snake in his toilet, seeing his brother coming to see him. Per nursing he had unwitnessed fall when trying to put himself sitting down on the chair but missed it. Slightly better in term of manic behaviors, redirectable and less demanding. Redirected for personal space. Accepted it without any problems. 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 With much effort, Pt remains able to be redirected; examined great rt toe which remains with clear signs of cellulites -Start Ziprasidone -obtained EKG and qtc WNL -Depakote level with much room so will switch depakote to ER so can make at bedtime to help w/ sleep and will increase dose (Depakote IR 1750mg ~ Dep ER 2000) 11/26 Patient remains manic, intrusive, grandiose, tangential. Patient is intrusive to the point where some peers are getting very angry and some feeling provoked. -So far unable to break this manic episode; so far Zyprexa and Geodon have not affected patient and patient is in danger of unintentionally inciting peer aggression. -Thorazine 100 mg did not help either; will try Thorazine 200 mg t.i.d. combined with diazepam 15 mg t.i.d. (10mg did nothing) -if Thorazine does not help, will consider Haldol; also will soon get Depakote level and maybe able to increase other 11/27 Patient remains manic, grandiose, very intrusive with peers and staff, going into patient's rooms, walking up in into rejection himself, getting very close to people making people both angry and scared. Difficult decisions regarding treatment. Discussed case with Dr. Vázquez who agrees with plan For now, will discontinue Thorazine and Valium as lead technical writer is somewhat concern that all this sedating medication could add on a delirium to his already manic behaviors. Instead, will try Trileptal to help break manic episode; Trileptal has the least side effect risk profile of options so will give it a try (though not very robust evidence) -Considering Tegretol however this will lower the effective dose of both clozapine and Risperdal by 50% or more creating a confusing treatment regimen; also can affect the liver and bone marrow and patient is already on Depakote and Clozaril -also considering Haldol however patient is already on 2 antipsychotics -also considering Tamoxifen used off-label however increases thrombo embolism risk and can raise the effective doses of clozapine and Risperdal ECT remains the gold standard to treat refractory jacob however patient has a guardian and Vela which would need to be amended 11/28 Patient angry, punching the wall, yelling aggressively, peers is getting scared; 1 peer felt threatened and confronted patient pushed him but both were able to be redirected. Made a threatening remark to staff i'm going to break you... Remains floridly manic, hyperverbal, intrusive... He did say yes to ECT however understands guardian needs to weigh in clinical reasoning: -patient's increasing aggression and agitation seems directly correlated with having had Thorazine and diazepam discontinued. Restarted it for the purpose of patient and milieu safety. However it later came to lead technical writer's attention that Thorazine is not 1 of the antipsychotics listed on his community Vela..? Options that are available are Abilify and Haldol. Flute Teacher lowered Thorazine to 100 mg and allowed for 1 last for tonight, again for milieu and patient safety however will discontinue it and will have to see if the other options are helpful Discussed case with colleague Dr. Meza who continues to agree that using Tegretol would cause too much mixing up of med regimen and that best option is to help patient remain safe while Depakote gets a chance to become therapeutic. Depakote level today 108; will continue with Depakote ER 3000mg and get level tomorrow -talked with Patients guardian Breezy Granados who says he has no objection to patient getting ECT 11/29 Patient for the 1st time since manic episodes started, more subdued today and slept from much of the day. During periods when he was awake, remains manic, intrusive, grandiose and saying bizarre things such as I am hairy potters twin and I need to get back to [facility]. -hopefully this is the sign that patient's manic episode is starting to wane; will continue with Depakote ER 3000 mg and get another level tomorrow (The?therapeutic range for acute jacob is 50?125 mcg/mL) 11/30 Still manic -added Abilfy 10mg daily; would prefer to try Haldol (both on Vela) but since Qtc is elevated will try Abilify first...(as mentioned despite qtc elevation, risk of TdP remains very low and Haldol remains an option. 12/01/24: Patient continued to be manic, intrusive, irritable most of the day, making threats. Making grandiose and paranoid delusional statements I need to go back to [place] to protect Jet Goldy . I am . I am the new president of the country . Patient was naked in the savage asking to talk to social security specialist this morning per staffing reports. Patient remains in the group room at the other hallway. Remain on kitchen restriction, limit access to the other end of the savage. Patient compliant with medications, see PRNs for anxiety and agitation, restless, hyperverbal, hyperactive, irritable, needs a lot redirection,incongruent with mood stating that he is happy and have no anxiety or depression. Poor insight and poor judgment. Denies that he has any order diagnosis or mental health issues except for anger disorder VPA level on 11/30/24: 117.9 (The?therapeutic range for acute jacob is 50?125 mcg/mL) 12/02/24: Patient slept for 9 hours last night. Compliant with meds, less irritable and more pleasant today. Continue to delusional and grandiose. He is calmer compare to yesterday. No naked episode. Discontinue Abilify, start Haldol 5mg TID with goal to control manic/psychotic, racing thoughts/behaviors. Some mild drooling which improving per nursing. Lactulose 20mg BID. (Ammnonia level 60H) Discontinue Abilfy. start Haldol 5mg TID. EKG done- no change compare to previous record. Slightly prolong QTc. 12/03/24: Patient slept for 8 hours, compliant with medications,, appeared to have tremors, and drooling which is not worsening. Patient appeared to be sedated this morning with mild irritable mood, sometimes he hearing from his room loudly, but spend more time in his room today. Slightly less intrusive. Continued to be delusional and grandiose. He has loose stool, Colace and MiraLax was held but continue offer lactulose. We will check ammonia level tomorrow. Observe by lateral lower extremity edema. Hospitalist consult placed. Regarding depakote level: The?therapeutic range for acute jacob is 50?125 mcg/mL, and most patients respond within this range?1 https://dailymed.nlm.nih.gov/dailymed/drugInfo.cfm?clttu=5ox175hg-[email or web address] ?2 https://pubmed.ncbi.nlm.nih.gov/69962336 .? of note, regarding EKG with prolonged Qtc: The incidence of torsades de pointes (TdP) from antipsychotic-induced QTc prolongation is?very low, estimated at?0.01?0.1%?(1?10 per 10,000 exposures) in clinical practice?1 https://pubmed.ncbi.nlm.nih.gov/89163040 ?2 https://pubmed.ncbi.nlm.nih.gov/51728484 . ?[And in the cases where someone did actually get TdP], the case fatality of TdP is also low, with?<10%?of TdP episodes resulting in cardiac , 12/04 Patient is doing better; less manic, less intrusive and resting more.? Still making grandiose delusional statements such as he is running for president with [employer], but certainly symptoms are improving.? He says he is on too much medication and lead technical writer agrees to review? -Lowered to Diazepam 5mg TID (down from 10mg) -dc Benadryl 25mg TID -has been refusing Lactulose; will recheck Ammonia; if elevated will start LCarnatine 12/05 remains hypomanic and making grandiose statements; continue treatment plan; continues to refuse lactulose. Will get labs 12/06 Still manic/hypomanic; overall more easily redirected and less hyperactive but still can be loud, intrusive and he continues to make grandiose statements saying he is the boss, he owns different things, he was born in different countries....sometimes yelling loudly in frustration...none of which is baseline -lead technical writer tried reality testing however this frustrated patient who remains with impaired insight to his manic episode increase Haldol to total daily dose of 25mg (up from 15mg) Monitoring Qtc ( QTcB Int : 471 ms on 12/06) Ammonia WNL; will lower Lactulose to 20mg daily (down from BID-has not always taken bedtime dose) 12/07 Patient remains manic/hypomanic; will continue current Haldol dose but may increase soon 12/08 remains manic, intrusive and grandiose; semiconductor testing group leader came in met with him and find some far from baseline. Patient getting angry or today than previously and yelling angrily in the hallway needing to be frequently redirected as he is causing anxiety in the milieu Will increase Haldol to 10 mg t.i.d. If this does not work, will strongly consider tamoxifen as it will take considerable time to petition the court to add ECT to his community Dane 12/09 Remains manic, intrusive with peers. Yelling very angrily this morning in the shower; pretended the door was locked at 1 point. Sometimes yelling loudly in the hallway and slamming doors. Otherwise comes up to staff and peers, typically making unrelated, grandiose statements. Told lead technical writer that the police are after him... That we need to find his brother and he could be in [place], [place]... Treatment plan: -patient seems to have regressed some in his progress...(though this is a nuanced observation and the progress alluded to was minimal if even there) For now will continue with Haldol 10 mg t.i.d.. It is difficult to know whether or not Abilify had been helping and that he decompensated a little once it was replaced with Haldol he started decompensating or if nothing has been helpful and his manic symptoms just ebb and flow... -tamoxifen remains an option 12/10 pretty much the same presentation; maybe a little more calm? Difficult to tell. Patient remains intrusive but redirectable. -continue current treatment plan for now; will give a few more days on Haldol to see if patient improves 12/11 Remains manic/hypomanic; maybe easier to redirect but still intrusive; still making bizarre or grandiose statements maybe a little less so. Patient continues to have very angry outburst, slamming doors and hitting the wall, sometimes yelling loudly and aggressively, but again able to be redirected -discussed with staff and since this is that patient may have improved a little bit but not all that much; will continue with Haldol 10 mg t.i.d. but strongly considering switching to Abilify 12/12 Patient reports that he has been feeling more stiff and also that Haldol has been giving him nightmares. Flute Teacher discussed this and discussed changing medications to Abilify. Patient agreed with this plan. Also agreed with artane/Trihexyphenidyl for stiffness, likely due to side effect of medication, since patient is allergic to Cogentin (though not clear what allergy is) -will discontinue Haldol and start Abilify; after 5 days of Haldol 10 mg t.i.d., patient's jacob has not really improved. Haldol is also potentially causing patient nightmares and maybe some increased stiffness and has increased risk for prolonged QTC. Abilify was tried in the past but it was a very brief trial so will restart now -lead technical writer filling out paperwork to amend [facility] to include ECT; even if we are gabriel and patient's jacob resolves with medication management, ECT would have likely resolved this weeks ago and patient will benefit from having ECT listed as a potential treatment 12/15 perhaps hypomania is starting to improve; continue current treatment plan; discussed this with patient who initially seemed to accept it however upset he is not being discharged today. 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 However overall seems to be approaching baseline Plan: CV Q 15 minute checks On [facility] [place] ORDER/guardianship Patient is not appropriate for groups or to be in kitchen 1. Jacob DC Haldol (Haldol 10 mg t.i.d. for 5 days with very minimal effect) Start Abilify 20 mg; will titrate start artane/Trihexyphenidyl 1mg bid for increased stiffness, likely medication side effects; patient has a recorded allergy to Cogentin Continue Depakote ER 3000 mg qhs Continue Risperdal 1 mg a.m. and 4 mg q.h.s. Continue Clozaril 400 mg q.h.s.; Level: 403 and Norclozaril 137. DC Thorazine 200mg TID DC Diazpam 10mg TID; will taper and dc once jacob subsides dc Trileptal DC Ziprasidone no effect Dc zyprexa; does not seem to do much HOLD Wellbutrin XL (once jacob resolved likely re-titrate to Wellbutrin 300mg (likely increasing to 450mg triggered manic episode) STARTed Fenobibrate 160mg daily for severely elevated Triacylglycerides of 898 (pt has normal renal function) Continue other home medications -consider Ingrezza -adverse reaction to [place] (per patient) -consider Tegretol? 2. Great right toe cellulitis Increased to Keflex 500 mg qid for 7 days (discussed increased dose with hospitalist MARIA T) -examined 11/28 and cellulitis is resolving 3. TAG 898 (appears to be fasting)/Cholesterol 319 re-ordered Lipid panel: Trilgyciride 898 down to 581 on 11/18/24. Cholesterol 319 down to 317. AIC 5.5 WNL. Started Fenobibrate 160mg daily (pt has normal renal function) Change diet to Low Fat diet will consider Statin Ordered TSH (lft's WNL): 0.81 WNL Bilateral lower extremity edema Appears euvolemic on exam, encouraged leg elevation. L great toenail fungus We will need outpatient follow up with Podiatry for nail removal Class 3 obesity BMI 36.2 Weight loss encouraged Hypertriglyceridemia/hyperlipidemia Patient started on fenofibrate on November 17 Triglycerides down to 150. LDL cholesterol 124 Encouraged weight loss, encourage healthy food choices. Excessive drooling Seen by speech, swallow function is not a factor in saliva management, and no loss of motor function noted. Continue glycopyrrolate Patient educated on: diagnosis, medication risk/benefits and therapeutic strategies Informed Consent: understands, does not understand and further education needed Reason for continued inpatient stay Substantial Risk for: rapid decompensation and med/psych decompensation Time Spent With Patient Time: Total time managing care of this patient today ____ minutes.
[2024-12-18 20:00] VITALS: BP 118/60; PULSE 109; RESP 18; TEMP 36.6; O2SAT 98
[2024-12-19 07:56] VITALS: BP 104/64; PULSE 100; RESP 16; TEMP 36.3; O2SAT 96
[2024-12-19] MEDS: ARIPiprazole 30 MG TABLET PO (08:48)
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
[2024-12-19 20:00] VITALS: BP 131/69; PULSE 112; RESP 18; TEMP 36.1; O2SAT 96
[2024-12-20] MEDS: Throat Lozenge, Medicated LOZENGE 1 LOZENGE MUCOUS MEM (00:02)
[2024-12-20 08:08] VITALS: BP 128/77; PULSE 109; TEMP 35.8; O2SAT 97
[2024-12-20] MEDS: ARIPiprazole 30 MG TABLET PO (10:29)
--- NOTE | 2024-12-20 17:18 | P.PNPSI_ITS ---
Subjective Subjective Date of Service: 12/20/24 Reason For Visit: Depressive D/O Schizoaffective Subjective Notes: Conditional Voluntary Healthcare Proxy: Yes Guardianship: Yes Medical Problems Affecting Mental Status: No Interim History: Medical record and nursing notes reviewed; case discussed during rounds with team/nursing staff, and met with patient for supportive therapy/psychoeducation, as well as medication management. Patient slept for 6 hours, compliant with meds. Patient has been calm most of the day, less intrusive but delusions. He has one angry episode when was redirected out of art group.Patient perceived as staff touch her and I do not like it yelling out loud, slamming the door but easily to calm down and distracted. Patient also believes that the [facility] who redirected patient was the one the killed his parent. Patient reports has no BM x3 days, request to have Colace up to 200mg. Observed patient some drooling, visible, calmer, watching TV, friendly to peers. Improving in term of intrusive and manic but grandiose and delusions. Medication Compliance: Yes Side effects from medications: Yes (drooling which is not new) Attending Groups: Intermittent (Art groups in common area only. Not appropriate for psych groups) Review of Systems Acute medical concerns: No Medical Review of Systems: unchanged Review of Systems Review of Systems Yes all other systems are reviewed and are negative Mental Status Exam Mental Status Exam Narrative: Pt is alert and oriented; behavior is more organized, in better control, though still more calm; still making fabricated, grandiose statements but much less so; still intrusive with peers but remains easily redirectable; patient is not in distress; dressed in casual and hospital attire, unkempt but adequate hygiene: mood is described as good and affect less expansive; eye contact appropriate; Speech remains verbose but not pressured and not really rambling; 1 episode of psychomotor agitation present, thought process more goal oriented, but also tangential; Thought content remains with intermittently with grandiose delusions; denies any SI/HI. Denies AVH Patients insight and judgment impaired but improving Diagnostics Vital Signs (24Hr): Vital Signs - 24 hr 12/19/24 20:00 12/20/24 08:08 Temperature 97 F 96.5 F L Pulse Rate 112 H 109 H Respiratory Rate 18 Blood Pressure 131/69 128/77 Pulse Oximetry 96 97 Oxygen Delivery Method Room Air Room Air BMI result Body Mass Index 34.1 Labs 11/28/24 10:37 Medications Medications Current Medications Acetaminophen (Acetaminophen 325 Mg Tablet) 650 mg PO Q6H PRN PRN Reason: Headache/Pain, Scale 1-10 Last Admin: 12/19/24 06:26 Dose: 650 mg Al Hydroxide/Mg Hydroxide (Magnesium Hydrox/Alum Hydrox 30 Ml Oral.Susp) 30 ml PO Q6H PRN PRN Reason: Heartburn/Nausea Last Admin: 11/21/24 01:55 Dose: 30 ml Aripiprazole (Aripiprazole 30 Mg Tablet) 30 mg PO DAILY STEWART Last Admin: 12/20/24 10:29 Dose: 30 mg Benzocaine (Throat Lozenge, Medicated Lozenge) 1 lozenge MUCOUS MEM Q2H PRN PRN Reason: Sore Throat Last Admin: 12/20/24 00:02 Dose: 1 lozenge Capsaicin (Capsaicin 0.025% Cream 60 Gm Tube) 1 appl TOPICAL TID PRN; Protocol PRN Reason: leg pain Last Admin: 12/20/24 17:12 Dose: 1 appl Clonidine HCl (Clonidine Hcl 0.1 Mg Tablet) 0.1 mg PO Q4H PRN; Protocol PRN Reason: moderate anxiety Last Admin: 12/16/24 14:57 Dose: 0.1 mg Clozapine (Clozapine 100 Mg Tablet) 400 mg PO BEDTIME STEWART Last Admin: 12/19/24 21:32 Dose: 400 mg Diazepam (Diazepam 5 Mg Tablet) 5 mg PO TID STEWART Last Admin: 12/20/24 15:34 Dose: 5 mg Diphenhydramine HCl (Diphenhydramine Hcl 25 Mg Capsule) 25 mg PO TID STEWART On Hold: 12/04/24 22:11 Last Admin: 12/04/24 22:16 Dose: 25 mg Divalproex Sodium (Divalproex Sodium Er 500 Mg Tab.Er.24h) 3,000 mg PO BEDTIME STEWART Last Admin: 12/19/24 21:30 Dose: 3,000 mg Docusate Sodium (Docusate Sodium 100 Mg Capsule) 200 mg PO DAILY STEWART Last Admin: 12/20/24 12:44 Dose: 200 mg Docusate Sodium (Docusate Sodium 100 Mg Capsule) 100 mg PO BEDTIME STEWART Fenofibrate (Fenofibrate 160 Mg Tablet) 160 mg PO DAILY [facility] Last Admin: 12/20/24 10:30 Dose: 160 mg Fluticasone Propionate (Fluticasone Propionate Nasal 16 Gm [place]) 1 spray NOSTRIL-B BEDTIME STEWART Last Admin: 12/19/24 21:36 Dose: Not Given Fluticasone Propionate (Fluticasone Propionate Nasal 16 Gm [place]) 1 spray NOSTRIL-B DAILY PRN PRN Reason: Nasal allergy Last Admin: 11/24/24 06:25 Dose: 1 spray Glycopyrrolate (Glycopyrrolate 1 Mg Tablet) 1 mg PO TID STEWART Last Admin: 12/20/24 15:34 Dose: 1 mg Ibuprofen (Ibuprofen 400 Mg Tablet) 400 mg PO Q6H PRN PRN Reason: Pain, Moderate(Pain Scale 4-6) Last Admin: 12/16/24 16:56 Dose: 400 mg Lactulose (Lactulose 20 Gm/30 Ml Solution) 20 gm PO DAILY STEWART On Hold: 12/10/24 08:55 Last Admin: 12/10/24 08:39 Dose: 20 gm Lidocaine (Lidocaine 5 % Ointment 35 Gm) 1 appl TOPICAL Q6H PRN; Protocol PRN Reason: Pain, Mild (Pain Scale 1-3) Lorazepam (Lorazepam 1 Mg Tablet) 1 mg PO Q8H PRN PRN Reason: Anxiety Last Admin: 12/19/24 22:53 Dose: 1 mg Magnesium Hydroxide (Milk Of Magnesia 30 Ml Oral.Susp) 30 ml PO DAILY PRN PRN Reason: Constipation Last Admin: 11/28/24 14:32 Dose: 30 ml Ondansetron HCl (Ondansetron Odt 4 Mg Tab.Rapdis) 4 mg TRANSLINGU Q6H PRN PRN Reason: Nausea and Vomiting Last Admin: 11/28/24 16:14 Dose: 4 mg Polyethylene Glycol (Polyethylene Glycol 3350 17 Gm Powd.Pack) 17 gm PO DAILY STEWART On Hold: 12/04/24 10:12 Last Admin: 12/04/24 10:07 Dose: Not Given Polyethylene Glycol (Polyethylene Glycol 3350 17 Gm Powd.Pack) 17 gm PO DAILY PRN PRN Reason: Constipation Last Admin: 11/28/24 16:16 Dose: 17 gm Risperidone (Risperidone 2 Mg Tablet) 4 mg PO BEDTIME STEWART Last Admin: 12/19/24 21:32 Dose: 4 mg Risperidone (Risperidone 1 Mg Tablet) 1 mg PO DAILY [facility] Last Admin: 12/20/24 10:28 Dose: 1 mg Trazodone HCl (Trazodone Hcl 50 Mg Tablet) 50 mg PO BEDTIME MRX1 PRN PRN Reason: Insomnia Last Admin: 12/17/24 21:27 Dose: 50 mg Trihexyphenidyl HCl (Trihexyphenidyl Hcl 2 Mg Tablet) 1 mg PO TID [facility] Last Admin: 12/20/24 15:34 Dose: 1 mg Allergies Allergies Allergy/AdvReac Type Severity Reaction Status Date / Time benztropine (From COGENTIN) Allergy Unknown UNKNOWN Verified 11/16/24 15:51 propranolol (From INDERAL [place]) Allergy Unknown UNKNOWN Verified 11/16/24 15:51 chaste tree Allergy Unknown Verified 11/16/24 15:51 lithium Allergy Unknown Verified 11/16/24 15:51 Assessment & Plan Assessment & Plan (1) Schizoaffective disorder, bipolar type: Status: Acute Code(s): F25.0 - Schizoaffective disorder, bipolar type (2) Bilateral edema of lower extremity: Status: Acute Code(s): R60.0 - Localized edema (3) Autism spectrum disorder: Status: Acute Code(s): F84.0 - Autistic disorder (4) Cellulitis: Status: Resolved Code(s): L03.90 - Cellulitis, unspecified (5) Class 3 obesity: Status: Acute Code(s): E66.813 - Obesity, class 3 Plan Patient is a 34-year-old male with history of schizoaffective disorder bipolar type, Autism Spectrum Disorder, who lives in a usp, on a [facility] who presents for depression. Patient reports that every 7 weeks (and every 4 months) medications don't work...and I feel depressed.... He says the the depression last anywhere from 2 to 12 days.. And then resolves on it's own without medication changes. Patient reports that he had suicidal ideation a few days ago, no plan but does not now. Patient says sometimes he hears sounds or voices that others do not hear, sometimes laughing noise but not very often and usually just during sleep. Discussed medication regimen and patient said that recently his Depakote was increased because he was having mood swings but it was difficult for him to give details. Discussed medication options and patient agrees to increase Wellbutrin to 450 mg. Formulation/clinical reasoning: Patient reports that episodically he still gets bouts of depression that can last for longer than a week however this seemed to resolve on their own. He is not sure what triggers them. Patient says he is already feeling better now that he is on the unit because of the friendships and interactions he has made since coming to the unit; patient signed a 3 day notice. Discussed medication options and patient agrees to increase Wellbutrin to 450 mg. Oil Pipeline Dispatcher wonders if perhaps patient can remain at Wellbutrin 300 mg and just take the extra 150 mg if he starts to feel depressed, sort of as an episodic p.r.n. -patient currently on 2 antipsychotics, including Clozaril and Risperdal; -some TD and pill rolling b/l hand tremor observed; wonder if Risperdal dose could be lowered; consider Ingrezza Of note patient had severely high Triacylglycerides of 898. It appears to have been taken while patient fasting however patient is not sure. TAG this high puts patient at risk for pancreatitis. Will redraw labs tomorrow morning to ensure fasting however for now will treat as if this is an accurate lab Hospital course: 11/18: Continue current management and treatment plan. 11/19: Increase Depakote to 500 mg in AM and continue 1,000 mg HS. 11/20: continue current management and treatment plan. 11/21 Patient has become manic over the past several days. Additional Depakote dose was added but patient remains manic, grandiose, labile and intrusive. 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 Patient at 1 point broke down crying about the of his parents, saying that his mother was murdered but then saying she had a brain bleed.. Patient saying that he is from [place] and is going to go back and live his life and [place]... Initially demanding to be discharged today but was able to be redirected. Patient agrees to increased medications including adding Zyprexa -will hold Wellbutrin; seems likely that increasing Wellbutrin was what triggered manic episode -Increasing bedtime Depakote to 1250 mg -patient hardly slept last night and added Zyprexa 10 mg b.i.d.; plan is to discontinue once jacob subsides -reviewed labs and repeat cholesterol shows highly elevated TAG>500 though not as high as the day before 11/22 Patient did sleep some last night with added Zyprexa. Still manic but a little less intense and though still with some grandiose ideations, much less so. Patient still intrusive to others but redirectable. Patient did agree that he was acting manic yesterday but says he is fine now and wants to discharge. He persisted in demanding for discharge today and expressed frustration when told this is not possible but remained in behavioral control. -Great right toe with cellulitis; started on Keflex -Depakote labs ordered for Wednesday *patient is not stable to return to usp at this time. Will try to get him to retract his 3 day notice but will otherwise file for civil commitment; that said hopefully will not need to go to court and manic episode will resolve 11/23/24: Patient slept for 2 hours, was medication compliant. Denies side effect but observed have some hand tremors. Restless, racing thoughts, intrusive, poor boundaries, need multiple redirections most of the time to respect personal space. He is over friendly, bright, manic but appeared to be less manic compared to yesterday. Can be perseverative on discharge, redirectable and need to remind that he is not leaving today a couple of times. He retracted 3 day notice. He seems to be forgetful. To PRNs with mild to moderate effects. He works on puzzle, and cleaning up his room. He has an reasonable planning for the future, appeared to be grandiose no aggressive behavior, can be irritable at times when things not the way he requested. Continue to monitor for sleeping pattern. 11/24/24: Slept slightly improved compared to the night before, he was able to slept for 4 hours. Was medication compliant. Mood is I am happy. I am calm and relaxed . Reports foot pain, nursing have patient to put lotion on, encouraged to elevated legs when he resting as left food appear to be slightly swollen. He said he would like to go back to his usp. He also asked if he can call Carla and Max to apologize to them. Read direct patient not calling so many times that may annoying other persons. He admitted that he need to give them a break . Observe want time he was on the phone, appropriate. He is slightly better compared to yesterday, able to sit still, listen to advice/redirection. Even though he has delusional, and grandiose thoughts. Thinking he see a snake in his toilet, seeing his brother coming to see him. Per nursing he had unwitnessed fall when trying to put himself sitting down on the chair but missed it. Slightly better in term of manic behaviors, redirectable and less demanding. Redirected for personal space. Accepted it without any problems. 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 With much effort, Pt remains able to be redirected; examined great rt toe which remains with clear signs of cellulites -Start Ziprasidone -obtained EKG and qtc WNL -Depakote level with much room so will switch depakote to ER so can make at bedtime to help w/ sleep and will increase dose (Depakote IR 1750mg ~ Dep ER 2000) 11/26 Patient remains manic, intrusive, grandiose, tangential. Patient is intrusive to the point where some peers are getting very angry and some feeling provoked. -So far unable to break this manic episode; so far Zyprexa and Geodon have not affected patient and patient is in danger of unintentionally inciting peer aggression. -Thorazine 100 mg did not help either; will try Thorazine 200 mg t.i.d. combined with diazepam 15 mg t.i.d. (10mg did nothing) -if Thorazine does not help, will consider Haldol; also will soon get Depakote level and maybe able to increase other 11/27 Patient remains manic, grandiose, very intrusive with peers and staff, going into patient's rooms, walking up in into rejection himself, getting very close to people making people both angry and scared. Difficult decisions regarding treatment. Discussed case with Dr. Vázquez who agrees with plan For now, will discontinue Thorazine and Valium as insurance underwriter is somewhat concern that all this sedating medication could add on a delirium to his already manic behaviors. Instead, will try Trileptal to help break manic episode; Trileptal has the least side effect risk profile of options so will give it a try (though not very robust evidence) -Considering Tegretol however this will lower the effective dose of both clozapine and Risperdal by 50% or more creating a confusing treatment regimen; also can affect the liver and bone marrow and patient is already on Depakote and Clozaril -also considering Haldol however patient is already on 2 antipsychotics -also considering Tamoxifen used off-label however increases thrombo embolism risk and can raise the effective doses of clozapine and Risperdal ECT remains the gold standard to treat refractory jacob however patient has a guardian and Vela which would need to be amended 11/28 Patient angry, punching the wall, yelling aggressively, peers is getting scared; 1 peer felt threatened and confronted patient pushed him but both were able to be redirected. Made a threatening remark to staff i'm going to break you... Remains floridly manic, hyperverbal, intrusive... He did say yes to ECT however understands guardian needs to weigh in clinical reasoning: -patient's increasing aggression and agitation seems directly correlated with having had Thorazine and diazepam discontinued. Restarted it for the purpose of patient and milieu safety. However it later came to insurance underwriter's attention that Thorazine is not 1 of the antipsychotics listed on his community Vela..? Options that are available are Abilify and Haldol. Oil Pipeline Dispatcher lowered Thorazine to 100 mg and allowed for 1 last for tonight, again for milieu and patient safety however will discontinue it and will have to see if the other options are helpful Discussed case with colleague Dr. Meza who continues to agree that using Tegretol would cause too much mixing up of med regimen and that best option is to help patient remain safe while Depakote gets a chance to become therapeutic. Depakote level today 108; will continue with Depakote ER 3000mg and get level tomorrow -talked with Patients guardian Breezy Granados who says he has no objection to patient getting ECT 11/29 Patient for the 1st time since manic episodes started, more subdued today and slept from much of the day. During periods when he was awake, remains manic, intrusive, grandiose and saying bizarre things such as I am hairy potters twin and I need to get back to [facility]. -hopefully this is the sign that patient's manic episode is starting to wane; will continue with Depakote ER 3000 mg and get another level tomorrow (The?therapeutic range for acute jacob is 50?125 mcg/mL) 11/30 Still manic -added Abilfy 10mg daily; would prefer to try Haldol (both on Vela) but since Qtc is elevated will try Abilify first...(as mentioned despite qtc elevation, risk of TdP remains very low and Haldol remains an option. 12/01/24: Patient continued to be manic, intrusive, irritable most of the day, making threats. Making grandiose and paranoid delusional statements I need to go back to [place] to protect Jet Goldy . I am . I am the new president of the country . Patient was naked in the savage asking to talk to social security assessor this morning per staffing reports. Patient remains in the group room at the other hallway. Remain on kitchen restriction, limit access to the other end of the savage. Patient compliant with medications, see PRNs for anxiety and agitation, restless, hyperverbal, hyperactive, irritable, needs a lot redirection,incongruent with mood stating that he is happy and have no anxiety or depression. Poor insight and poor judgment. Denies that he has any order diagnosis or mental health issues except for anger disorder VPA level on 11/30/24: 117.9 (The?therapeutic range for acute jacob is 50?125 mcg/mL) 12/02/24: Patient slept for 9 hours last night. Compliant with meds, less irritable and more pleasant today. Continue to delusional and grandiose. He is calmer compare to yesterday. No naked episode. Discontinue Abilify, start Haldol 5mg TID with goal to control manic/psychotic, racing thoughts/behaviors. Some mild drooling which improving per nursing. Lactulose 20mg BID. (Ammnonia level 60H) Discontinue Abilfy. start Haldol 5mg TID. EKG done- no change compare to previous record. Slightly prolong QTc. 12/03/24: Patient slept for 8 hours, compliant with medications,, appeared to have tremors, and drooling which is not worsening. Patient appeared to be sedated this morning with mild irritable mood, sometimes he hearing from his room loudly, but spend more time in his room today. Slightly less intrusive. Continued to be delusional and grandiose. He has loose stool, Colace and MiraLax was held but continue offer lactulose. We will check ammonia level tomorrow. Observe by lateral lower extremity edema. Hospitalist consult placed. Regarding depakote level: The?therapeutic range for acute jacob is 50?125 mcg/mL, and most patients respond within this range?1 https://dailymed.nlm.nih.gov/dailymed/drugInfo.cfm?npmeg=9hs874eo-det1-9959-2ga9 -860o854lfxws ?2 https://pubmed.ncbi.nlm.nih.gov/90909425 .? of note, regarding EKG with prolonged Qtc: The incidence of torsades de pointes (TdP) from antipsychotic-induced QTc prolongation is?very low, estimated at?0.01?0.1%?(1?10 per 10,000 exposures) in clinical practice?1 https://pubmed.ncbi.nlm.nih.gov/25761556 ?2 https://pubmed.ncbi.nlm.nih.gov/50392322 . ?[And in the cases where someone did actually get TdP], the case fatality of TdP is also low, with?<10%?of TdP episodes resulting in cardiac , 12/04 Patient is doing better; less manic, less intrusive and resting more.? Still making grandiose delusional statements such as he is running for president with [employer], but certainly symptoms are improving.? He says he is on too much medication and insurance underwriter agrees to review? -Lowered to Diazepam 5mg TID (down from 10mg) -dc Benadryl 25mg TID -has been refusing Lactulose; will recheck Ammonia; if elevated will start LCarnatine 12/05 remains hypomanic and making grandiose statements; continue treatment plan; continues to refuse lactulose. Will get labs 12/06 Still manic/hypomanic; overall more easily redirected and less hyperactive but still can be loud, intrusive and he continues to make grandiose statements saying he is the boss, he owns different things, he was born in different countries....sometimes yelling loudly in frustration...none of which is baseline -insurance underwriter tried reality testing however this frustrated patient who remains with impaired insight to his manic episode increase Haldol to total daily dose of 25mg (up from 15mg) Monitoring Qtc ( QTcB Int : 471 ms on 12/06) Ammonia WNL; will lower Lactulose to 20mg daily (down from BID-has not always taken bedtime dose) 12/07 Patient remains manic/hypomanic; will continue current Haldol dose but may increase soon 12/08 remains manic, intrusive and grandiose; [employer] group leader came in met with him and find some far from baseline. Patient getting angry or today than previously and yelling angrily in the hallway needing to be frequently redirected as he is causing anxiety in the milieu Will increase Haldol to 10 mg t.i.d. If this does not work, will strongly consider tamoxifen as it will take considerable time to petition the court to add ECT to his community Dane 12/09 Remains manic, intrusive with peers. Yelling very angrily this morning in the shower; pretended the door was locked at 1 point. Sometimes yelling loudly in the hallway and slamming doors. Otherwise comes up to staff and peers, typically making unrelated, grandiose statements. Told insurance underwriter that the police are after him... That we need to find his brother and he could be in [place], [place]... Treatment plan: -patient seems to have regressed some in his progress...(though this is a nuanced observation and the progress alluded to was minimal if even there) For now will continue with Haldol 10 mg t.i.d.. It is difficult to know whether or not Abilify had been helping and that he decompensated a little once it was replaced with Haldol he started decompensating or if nothing has been helpful and his manic symptoms just ebb and flow... -tamoxifen remains an option 12/10 pretty much the same presentation; maybe a little more calm? Difficult to tell. Patient remains intrusive but redirectable. -continue current treatment plan for now; will give a few more days on Haldol to see if patient improves 12/11 Remains manic/hypomanic; maybe easier to redirect but still intrusive; still making bizarre or grandiose statements maybe a little less so. Patient continues to have very angry outburst, slamming doors and hitting the wall, sometimes yelling loudly and aggressively, but again able to be redirected -discussed with staff and since this is that patient may have improved a little bit but not all that much; will continue with Haldol 10 mg t.i.d. but strongly considering switching to Abilify 12/12 Patient reports that he has been feeling more stiff and also that Haldol has been giving him nightmares. Oil Pipeline Dispatcher discussed this and discussed changing medications to Abilify. Patient agreed with this plan. Also agreed with artane/Trihexyphenidyl for stiffness, likely due to side effect of medication, since patient is allergic to Cogentin (though not clear what allergy is) -will discontinue Haldol and start Abilify; after 5 days of Haldol 10 mg t.i.d.,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
[2024-12-20 20:00] VITALS: BP 123/72; PULSE 116; RESP 20; TEMP 36.6; O2SAT 96
[2024-12-21 08:00] VITALS: BP 116/65; PULSE 64; RESP 18; TEMP 36.1; O2SAT 98
[2024-12-21 08:13] LABS: Neut%MD 49.7 %; WBCANC 9.2 X10*3/uL
[2024-12-21] MEDS: ARIPiprazole 30 MG TABLET PO (09:09)
--- NOTE | 2024-12-21 15:03 | HO.PSYCHPN ---
Subjective Subjective Date of Service: 12/21/24 Reason For Visit: Depressive D/O Schizoaffective Subjective Notes: Conditional Voluntary Healthcare Proxy: Yes Guardianship: Yes Medical Problems Affecting Mental Status: No Interim History: Medical record and nursing notes reviewed; case discussed during rounds with team/nursing staff, and met with patient for supportive therapy/psychoeducation, as well as medication management. Patient slept for 8 hours, compliant with meds, visible, pleasant and cooperative. Good effects from Colace increased yesterday. Report had BM last night but it was hard. He is less irritable and less intrusive compare to yesterday. Appear clean and good ADL's. Need less redirection from staff for intrusive and boundaries issues, patient wait for his turn to be seen, overly friendly and smile but less manic. Continue with delusions and grandiose thoughts, making inappropriate jokes and then say sorry that he was just joking. Not able to tolerate groups for a long period of time, do not want to work on Puzzle. Room is clean. Denies depression/anxiety or angry mood. Medication Compliance: Yes Side effects from medications: No (drooling - not got worse ) Attending Groups: Intermittent Review of Systems Acute medical concerns: No Medical Review of Systems: unchanged Review of Systems Review of Systems Yes all other systems are reviewed and are negative Mental Status Exam Mental Status Exam Narrative: Pt is alert and oriented; behavior is more organized, in better control, though still more calm; still making fabricated, grandiose statements but much less so; still intrusive with peers but remains easily redirectable; patient is not in distress; dressed in casual and hospital attire, kempt with adequate hygiene: mood is described as good and affect broad; eye contact appropriate; Speech remains verbose but not pressured and not really rambling; no psychomotor agitation present, thought process more goal oriented with less tangential; Thought content remains with intermittently with grandiose delusions; denies any SI/HI. Denies AVH Patients insight and judgment impaired but improving Diagnostics Vital Signs (24Hr): Vital Signs - 24 hr 12/20/24 20:00 12/21/24 08:00 Temperature 98 F 96.9 F Pulse Rate 116 H 64 Respiratory Rate 20 18 Blood Pressure 123/72 116/65 Pulse Oximetry 96 98 Oxygen Delivery Method Room Air Room Air BMI result Body Mass Index 34.1 Labs 09/09/25 10:37 Labs: Laboratory Results - last 48 hr 12/21/24 07:54 Absolute Neuts (auto) 4.6 Medications Medications Current Medications Acetaminophen (Acetaminophen 325 Mg Tablet) 650 mg PO Q6H PRN PRN Reason: Headache/Pain, Scale 1-10 Last Admin: 12/19/24 06:26 Dose: 650 mg Al Hydroxide/Mg Hydroxide (Magnesium Hydrox/Alum Hydrox 30 Ml Oral.Susp) 30 ml PO Q6H PRN PRN Reason: Heartburn/Nausea Last Admin: 11/21/24 01:55 Dose: 30 ml Aripiprazole (Aripiprazole 30 Mg Tablet) 30 mg PO DAILY STEWART Last Admin: 12/21/24 09:09 Dose: 30 mg Benzocaine (Throat Lozenge, Medicated Lozenge) 1 lozenge MUCOUS MEM Q2H PRN PRN Reason: Sore Throat Last Admin: 12/20/24 00:02 Dose: 1 lozenge Capsaicin (Capsaicin 0.025% Cream 60 Gm Tube) 1 appl TOPICAL TID PRN; Protocol PRN Reason: leg pain Last Admin: 12/21/24 06:45 Dose: 1 appl Clonidine HCl (Clonidine Hcl 0.1 Mg Tablet) 0.1 mg PO Q4H PRN; Protocol PRN Reason: moderate anxiety Last Admin: 12/20/24 22:18 Dose: 0.1 mg Clozapine (Clozapine 100 Mg Tablet) 400 mg PO BEDTIME STEWART Last Admin: 12/20/24 22:18 Dose: 400 mg Diazepam (Diazepam 5 Mg Tablet) 5 mg PO TID STEWART Last Admin: 12/21/24 09:09 Dose: 5 mg Diphenhydramine HCl (Diphenhydramine Hcl 25 Mg Capsule) 25 mg PO TID STEWART On Hold: 12/04/24 22:11 Last Admin: 12/04/24 22:16 Dose: 25 mg Divalproex Sodium (Divalproex Sodium Er 500 Mg Tab.Er.24h) 3,000 mg PO BEDTIME STEWART Last Admin: 12/20/24 22:15 Dose: 3,000 mg Docusate Sodium (Docusate Sodium 100 Mg Capsule) 200 mg PO DAILY STEWART Last Admin: 12/21/24 09:09 Dose: 200 mg Docusate Sodium (Docusate Sodium 100 Mg Capsule) 100 mg PO BEDTIME STEWART Last Admin: 10/01/25 22:18 Dose: 100 mg Fenofibrate (Fenofibrate 160 Mg Tablet) 160 mg PO DAILY STEWART Last Admin: 12/21/24 09:09 Dose: 160 mg Fluticasone Propionate (Fluticasone Propionate Nasal 16 Gm [place]) 1 spray NOSTRIL-B BEDTIME STEWART Last Admin: 12/20/24 22:20 Dose: 1 spray Fluticasone Propionate (Fluticasone Propionate Nasal 16 Gm [place]) 1 spray NOSTRIL-B DAILY PRN PRN Reason: Nasal allergy Last Admin: 11/24/24 06:25 Dose: 1 spray Glycopyrrolate (Glycopyrrolate 1 Mg Tablet) 1 mg PO TID PENDING SALE TO [facility] Last Admin: 12/21/24 09:10 Dose: 1 mg Ibuprofen (Ibuprofen 400 Mg Tablet) 400 mg PO Q6H PRN PRN Reason: Pain, Moderate(Pain Scale 4-6) Last Admin: 12/16/24 16:56 Dose: 400 mg Lactulose (Lactulose 20 Gm/30 Ml Solution) 20 gm PO DAILY STEWART On Hold: 12/10/24 08:55 Last Admin: 12/10/24 08:39 Dose: 20 gm Lidocaine (Lidocaine 5 % Ointment 35 Gm) 1 appl TOPICAL Q6H PRN; Protocol PRN Reason: Pain, Mild (Pain Scale 1-3) Lorazepam (Lorazepam 1 Mg Tablet) 1 mg PO Q8H PRN PRN Reason: Anxiety Last Admin: 12/20/24 22:19 Dose: 1 mg Magnesium Hydroxide (Milk Of Magnesia 30 Ml Oral.Susp) 30 ml PO DAILY PRN PRN Reason: Constipation Last Admin: 11/28/24 14:32 Dose: 30 ml Ondansetron HCl (Ondansetron Odt 4 Mg Tab.Rapdis) 4 mg TRANSLINGU Q6H PRN PRN Reason: Nausea and Vomiting Last Admin: 11/28/24 16:14 Dose: 4 mg Polyethylene Glycol (Polyethylene Glycol 3350 17 Gm Powd.Pack) 17 gm PO DAILY STEWART On Hold: 12/04/24 10:12 Last Admin: 12/04/24 10:07 Dose: Not Given Polyethylene Glycol (Polyethylene Glycol 3350 17 Gm Powd.Pack) 17 gm PO DAILY PRN PRN Reason: Constipation Last Admin: 11/28/24 16:16 Dose: 17 gm Risperidone (Risperidone 2 Mg Tablet) 4 mg PO BEDTIME PENDING SALE TO [facility] Last Admin: 12/20/24 22:17 Dose: 4 mg Risperidone (Risperidone 1 Mg Tablet) 1 mg PO DAILY PENDING [facility]ALE TO [facility] Last Admin: 12/21/24 09:09 Dose: 1 mg Trazodone HCl (Trazodone Hcl 50 Mg Tablet) 50 mg PO BEDTIME MRX1 PRN PRN Reason: Insomnia Last Admin: 12/20/24 22:18 Dose: 50 mg Trihexyphenidyl HCl (Trihexyphenidyl Hcl 2 Mg Tablet) 1 mg PO TID PENDING SALE TO [facility] Last Admin: 12/21/24 09:09 Dose: 1 mg Allergies Allergies Allergy/AdvReac Type Severity Reaction Status Date / Time benztropine (From COG[facility]) Allergy Unknown UNKNOWN Verified 11/16/24 15:51 propranolol (From [facility]DERAL [place]) Allergy Unknown UNKNOWN Verified 11/16/24 15:51 chaste tree Allergy Unknown Verified 11/16/24 15:51 lithium Allergy Unknown Verified 11/16/24 15:51 Assessment & Plan Assessment & Plan (1) Schizoaffective disorder, bipolar type: Status: Acute Code(s): F25.0 - Schizoaffective disorder, bipolar type (2) Bilateral edema of lower extremity: Status: Acute Code(s): R60.0 - Localized edema (3) Autism spectrum disorder: Status: Acute Code(s): F84.0 - Autistic disorder (4) Cellulitis: Status: Resolved Code(s): L03.90 - Cellulitis, unspecified (5) Class 3 obesity: Status: Acute Code(s): E66.813 - Obesity, class 3 Plan Patient is a 34-year-old male with history of schizoaffective disorder bipolar type, Autism Spectrum Disorder, who lives in a senior living, on a [facility] who presents for depression. Patient reports that every 7 weeks (and every 4 months) medications don't work...and I feel depressed.... He says the the depression last anywhere from 2 to 12 days.. And then resolves on it's own without medication changes. Patient reports that he had suicidal ideation a few days ago, no plan but does not now. Patient says sometimes he hears sounds or voices that others do not hear, sometimes laughing noise but not very often and usually just during sleep. Discussed medication regimen and patient said that recently his Depakote was increased because he was having mood swings but it was difficult for him to give details. Discussed medication options and patient agrees to increase Wellbutrin to 450 mg. Formulation/clinical reasoning: Patient reports that episodically he still gets bouts of depression that can last for longer than a week however this seemed to resolve on their own. He is not sure what triggers them. Patient says he is already feeling better now that he is on the unit because of the friendships and interactions he has made since coming to the unit; patient signed a 3 day notice. Discussed medication options and patient agrees to increase Wellbutrin to 450 mg. Priming Mixture Carrier wonders if perhaps patient can remain at Wellbutrin 300 mg and just take the extra 150 mg if he starts to feel depressed, sort of as an episodic p.r.n. -patient currently on 2 antipsychotics, including Clozaril and Risperdal; -some TD and pill rolling b/l hand tremor observed; wonder if Risperdal dose could be lowered; consider Aristeo Of note patient had severely high Triacylglycerides of 898. It appears to have been taken while patient fasting however patient is not sure. TAG this high puts patient at risk for pancreatitis. Will redraw labs tomorrow morning to ensure fasting however for now will treat as if this is an accurate lab Hospital course: 11/18: Continue current management and treatment plan. 11/19: Increase Depakote to 500 mg in AM and continue 1,000 mg HS. 11/20: continue current management and treatment plan. 11/21 Patient has become manic over the past several days. Additional Depakote dose was added but patient remains manic, grandiose, labile and intrusive. 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 Patient at 1 point broke down crying about the of his parents, saying that his mother was murdered but then saying she had a brain bleed.. Patient saying that he is from [place] and is going to go back and live his life and [place]... Initially demanding to be discharged today but was able to be redirected. Patient agrees to increased medications including adding Zyprexa -will hold Wellbutrin; seems likely that increasing Wellbutrin was what triggered manic episode -Increasing bedtime Depakote to 1250 mg -patient hardly slept last night and added Zyprexa 10 mg b.i.d.; plan is to discontinue once jacob subsides -reviewed labs and repeat cholesterol shows highly elevated TAG>500 though not as high as the day before 11/22 Patient did sleep some last night with added Zyprexa. Still manic but a little less intense and though still with some grandiose ideations, much less so. Patient still intrusive to others but redirectable. Patient did agree that he was acting manic yesterday but says he is fine now and wants to discharge. He persisted in demanding for discharge today and expressed frustration when told this is not possible but remained in behavioral control. -Great right toe with cellulitis; started on Keflex -Depakote labs ordered for Wednesday *patient is not stable to return to senior living at this time. Will try to get him to retract his 3 day notice but will otherwise file for civil commitment; that said hopefully will not need to go to court and manic episode will resolve 11/23/24: Patient slept for 2 hours, was medication compliant. Denies side effect but observed have some hand tremors. Restless, racing thoughts, intrusive, poor boundaries, need multiple redirections most of the time to respect personal space. He is over friendly, bright, manic but appeared to be less manic compared to yesterday. Can be perseverative on discharge, redirectable and need to remind that he is not leaving today a couple of times. He retracted 3 day notice. He seems to be forgetful. To PRNs with mild to moderate effects. He works on puzzle, and cleaning up his room. He has an reasonable planning for the future, appeared to be grandiose no aggressive behavior, can be irritable at times when things not the way he requested. Continue to monitor for sleeping pattern. 11/24/24: Slept slightly improved compared to the night before, he was able to slept for 4 hours. Was medication compliant. Mood is I am happy. I am calm and relaxed . Reports foot pain, nursing have patient to put lotion on, encouraged to elevated legs when he resting as left food appear to be slightly swollen. He said he would like to go back to his senior living. He also asked if he can call Carla and Max to apologize to them. Read direct patient not calling so many times that may annoying other persons. He admitted that he need to give them a break . Observe want time he was on the phone, appropriate. He is slightly better compared to yesterday, able to sit still, listen to advice/redirection. Even though he has delusional, and grandiose thoughts. Thinking he see a snake in his toilet, seeing his brother coming to see him. Per nursing he had unwitnessed fall when trying to put himself sitting down on the chair but missed it. Slightly better in term of manic behaviors, redirectable and less demanding. Redirected for personal space. Accepted it without any problems. 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 With much effort, Pt remains able to be redirected; examined great rt toe which remains with clear signs of cellulites -Start Ziprasidone -obtained EKG and qtc WNL -Depakote level with much room so will switch depakote to ER so can make at bedtime to help w/ sleep and will increase dose (Depakote IR 1750mg ~ Dep ER 1999) 11/26 Patient remains manic, intrusive, grandiose, tangential. Patient is intrusive to the point where some peers are getting very angry and some feeling provoked. -So far unable to break this manic episode; so far Zyprexa and Geodon have not affected patient and patient is in danger of unintentionally inciting peer aggression. -Thorazine 100 mg did not help either; will try Thorazine 200 mg t.i.d. combined with diazepam 15 mg t.i.d. (10mg did nothing) -if Thorazine does not help, will consider Haldol; also will soon get Depakote level and maybe able to increase other 11/27 Patient remains manic, grandiose, very intrusive with peers and staff, going into patient's rooms, walking up in into rejection himself, getting very close to people making people both angry and scared. Difficult decisions regarding treatment. Discussed case with Dr. Vázquez who agrees with plan For now, will discontinue Thorazine and Valium as service writer advisor is somewhat concern that all this sedating medication could add on a delirium to his already manic behaviors. Instead, will try Trileptal to help break manic episode; Trileptal has the least side effect risk profile of options so will give it a try (though not very robust evidence) -Considering Tegretol however this will lower the effective dose of both clozapine and Risperdal by 50% or more creating a confusing treatment regimen; also can affect the liver and bone marrow and patient is already on Depakote and Clozaril -also considering Haldol however patient is already on 2 antipsychotics -also considering Tamoxifen used off-label however increases thrombo embolism risk and can raise the effective doses of clozapine and Risperdal ECT remains the gold standard to treat refractory jacob however patient has a guardian and [place] which would need to be amended 11/28 Patient angry, punching the wall, yelling aggressively, peers is getting scared; 1 peer felt threatened and confronted patient pushed him but both were able to be redirected. Made a threatening remark to staff i'm going to break you... Remains floridly manic, hyperverbal, intrusive... He did say yes to ECT however understands guardian needs to weigh in clinical reasoning: -patient's increasing aggression and agitation seems directly correlated with having had Thorazine and diazepam discontinued. Restarted it for the purpose of patient and milieu safety. However it later came to service writer advisor's attention that Thorazine is not 1 of the antipsychotics listed on his community [place]..? Options that are available are Abilify and Haldol. Priming Mixture Carrier lowered Thorazine to 100 mg and allowed for 1 last for tonight, again for milieu and patient safety however will discontinue it and will have to see if the other options are helpful Discussed case with colleague Dr. Meza who continues to agree that using Tegretol would cause too much mixing up of med regimen and that best option is to help patient remain safe while Depakote gets a chance to become therapeutic. Depakote level today 108; will continue with Depakote ER 3000mg and get level tomorrow -talked with Patients guardian Breezy Granados who says he has no objection to patient getting ECT 11/29 Patient for the 1st time since manic episodes started, more subdued today and slept from much of the day. During periods when he was awake, remains manic, intrusive, grandiose and saying bizarre things such as I am hairy potters twin and I need to get back to [facility]. -hopefully this is the sign that patient's manic episode is starting to wane; will continue with Depakote ER 3000 mg and get another level tomorrow (The?therapeutic range for acute jacob is 50?125 mcg/mL) 11/30 Still manic -added Abilfy 10mg daily; would prefer to try Haldol (both on [place]) but since Qtc is elevated will try Abilify first...(as mentioned despite qtc elevation, risk of TdP remains very low and Haldol remains an option. 12/01/24: Patient continued to be manic, intrusive, irritable most of the day, making threats. Making grandiose and paranoid delusional statements I need to go back to [place] to protect Jet Goldy . I am . I am the new president of the country . Patient was naked in the savage asking to talk to secondary social studies teacher this morning per staffing reports. Patient remains in the group room at the other hallway. Remain on kitchen restriction, limit access to the other end of the savage. Patient compliant with medications, see PRNs for anxiety and agitation, restless, hyperverbal, hyperactive, irritable, needs a lot redirection,incongruent with mood stating that he is happy and have no anxiety or depression. Poor insight and poor judgment. Denies that he has any order diagnosis or mental health issues except for anger disorder VPA level on 11/30/24: 117.9 (The?therapeutic range for acute jacob is 50?125 mcg/mL) 12/02/24: Patient slept for 9 hours last night. Compliant with meds, less irritable and more pleasant today. Continue to delusional and grandiose. He is calmer compare to yesterday. No naked episode. Discontinue Abilify, start Haldol 5mg TID with goal to control manic/psychotic, racing thoughts/behaviors. Some mild drooling which improving per nursing. Lactulose 20mg BID. (Ammnonia level 60H) Discontinue Abilfy. start Haldol 5mg TID. EKG done- no change compare to previous record. Slightly prolong QTc. 12/03/24: Patient slept for 8 hours, compliant with medications,, appeared to have tremors, and drooling which is not worsening. Patient appeared to be sedated this morning with mild irritable mood, sometimes he hearing from his room loudly, but spend more time in his room today. Slightly less intrusive. Continued to be delusional and grandiose. He has loose stool, Colace and MiraLax was held but continue offer lactulose. We will check ammonia level tomorrow. Observe by lateral lower extremity edema. Hospitalist consult placed. Regarding depakote level: The?therapeutic range for acute jacob is 50?125 mcg/mL, and most patients respond within this range?1https://dailymed.nlm.nih.gov/dailymed/drugInfo.cfm?zgvoz=[email or web address]?2https://pubmed.ncbi.nlm.nih.gov/78015984.? of note, regarding EKG with prolonged Qtc: The incidence of torsades de pointes (TdP) from antipsychotic-induced QTc prolongation is?very low, estimated at?0.01?0.1%?(1?10 per 10,000 exposures) in clinical practice?1https://pubmed.ncbi.nlm.nih.gov/21923407?2https://pubmed.ncbi.nlm.nih.gov/96449563. ?[And in the cases where someone did actually get TdP], the case fatality of TdP is also low, with?<10%?of TdP episodes resulting in cardiac , 12/04 Patient is doing better; less manic, less intrusive and resting more.? Still making grandiose delusional statements such as he is running for president with [employer], but certainly symptoms are improving.? He says he is on too much medication and service writer advisor agrees to review? -Lowered to Diazepam 5mg TID (down from 10mg) -dc Benadryl 25mg TID -has been refusing Lactulose; will recheck Ammonia; if elevated will start LCarnatine 12/05 remains hypomanic and making grandiose statements; continue treatment plan; continues to refuse lactulose. Will get labs 12/06 Still manic/hypomanic; overall more easily redirected and less hyperactive but still can be loud, intrusive and he continues to make grandiose statements saying he is the boss, he owns different things, he was born in different countries....sometimes yelling loudly in frustration...none of which is baseline -service writer advisor tried reality testing however this frustrated patient who remains with impaired insight to his manic episode increase Haldol to total daily dose of 25mg (up from 15mg) Monitoring Qtc ( QTcB Int : 471 ms on 12/06) Ammonia WNL; will lower Lactulose to 20mg daily (down from BID-has not always taken bedtime dose) 12/07 Patient remains manic/hypomanic; will continue current Haldol dose but may increase soon 12/08 remains manic, intrusive and grandiose; beadworker came in met with him and find some far from baseline. Patient getting angry or today than previously and yelling angrily in the hallway needing to be frequently redirected as he is causing anxiety in the milieu Will increase Haldol to 10 mg t.i.d. If this does not work, will strongly consider tamoxifen as it will take considerable time to petition the court to add ECT to his community [place] 12/09 Remains manic, intrusive with peers. Yelling very angrily this morning in the shower; pretended the door was locked at 1 point. Sometimes yelling loudly in the hallway and slamming doors. Otherwise comes up to staff and peers, typically making unrelated, grandiose statements. Told service writer advisor that the police are after him... That we need to find his brother and he could be in [place], [place]... Treatment plan: -patient seems to have regressed some in his progress...(though this is a nuanced observation and the progress alluded to was minimal if even there) For now will continue with Haldol 10 mg t.i.d.. It is difficult to know whether or not Abilify had been helping and that he decompensated a little once it was replaced with Haldol he started decompensating or if nothing has been helpful and his manic symptoms just ebb and flow... -tamoxifen remains an option 12/10 pretty much the same presentation; maybe a little more calm? Difficult to tell. Patient remains intrusive but redirectable. -continue current treatment plan for now; will give a few more days on Haldol to see if patient improves 12/11 Remains manic/hypomanic; maybe easier to redirect but still intrusive; still making bizarre or grandiose statements maybe a little less so. Patient continues to have very angry outburst, slamming doors and hitting the wall, sometimes yelling loudly and aggressively, but again able to be redirected -discussed with staff and since this is that patient may have improved a little bit but not all that much; will continue with Haldol 10 mg t.i.d. but strongly considering switching to Abilify 12/12 Patient reports that he has been feeling more stiff and also that Haldol has been giving him nightmares. Priming Mixture Carrier discussed this and discussed changing medications to Abilify. Patient agreed with this plan. Also agreed with artane/Trihexyphenidyl for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
[2024-12-21 20:00] VITALS: BP 121/68; PULSE 112; RESP 20; TEMP 36; O2SAT 97
[2024-12-22] MEDS: Throat Lozenge, Medicated LOZENGE 1 LOZENGE MUCOUS MEM (07:05)
[2024-12-22 08:04] VITALS: BP 135/89; PULSE 101; TEMP 36.3; O2SAT 97
[2024-12-22] MEDS: ARIPiprazole 30 MG TABLET PO (09:05)
--- NOTE | 2024-12-22 19:28 | HO.PSYCHPN ---
Subjective Subjective Date of Service: 12/22/24 Reason For Visit: Depressive D/O Schizoaffective Subjective Notes: Conditional Voluntary Healthcare Proxy: Yes Guardianship: Yes Medical Problems Affecting Mental Status: No Interim History: Medical record and nursing notes reviewed; case discussed during rounds with team/nursing staff, and met with patient for supportive therapy/psychoeducation, as well as medication management. Patient slept for 8 hours. Report he has been having good sleep for the past 5-6 days. Good appetite. Calm and cooperative. He continues to improve. Less intrusive thoughts, better with personal space and boundaries even though still need rediection sometimes. Calmer in the morning compare to the afternoon but racing thoughts, lots of ideas where he wants to go after discharge. As today, he does not want to go to [facility]. Report he hears his mom's voices. Denies anxiety and depression but sometimes feels frustrated. He has some new clothes- probably got it from donation closet. Report that he gave out one outfit to someone else before and the rests are in his package. Not too much of drooling, hand tremors seems to improve. Report having BM and not hard like the day before. He is able to stay in the topic longer and actually have a good calm conversation with this provider with less delusions and racing thoughts in the morning, friendly, redirectable. Mostly no angry outburst. Medication Compliance: Yes Side effects from medications: No Attending Groups: Intermittent Review of Systems Acute medical concerns: No Medical Review of Systems: unchanged Review of Systems Review of Systems Yes all other systems are reviewed and are negative Mental Status Exam Mental Status Exam Narrative: Pt is alert and oriented; behavior is more organized, in better control, though still more calm; still making fabricated, grandiose statements but much less so; less intrusive; patient is not in distress; dressed in casual and hospital attire, kempt hair and adequate hygiene: mood is described as good and affect broad; eye contact appropriate; Speech is normal rate and volume, nt really rambling; moment with racing thoughts but improved, no psychomotor agitation present, thought process more goal oriented with less tangential; Thought content remains with intermittently with grandiose delusions; denies any SI/HI. Denies AVH at assessment time but report hearing mom's voices Patients insight and judgment are improving Diagnostics Vital Signs (24Hr): Vital Signs - 24 hr 12/21/24 20:00 12/22/24 08:04 Temperature 96.8 F 97.4 F Pulse Rate 112 H 101 H Respiratory Rate 20 Blood Pressure 121/68 135/89 Pulse Oximetry 97 97 Oxygen Delivery Method Room Air Room Air BMI result Body Mass Index 34.1 Labs 11/28/24 10:37 Labs: Laboratory Results - last 48 hr 12/21/24 07:54 Absolute Neuts (auto) 4.6 Medications Medications Current Medications Acetaminophen (Acetaminophen 325 Mg Tablet) 650 mg PO Q6H PRN PRN Reason: Headache/Pain, Scale 1-10 Last Admin: 12/19/24 06:26 Dose: 650 mg Al Hydroxide/Mg Hydroxide (Magnesium Hydrox/Alum Hydrox 30 Ml Oral.Susp) 30 ml PO Q6H PRN PRN Reason: Heartburn/Nausea Last Admin: 11/21/24 01:55 Dose: 30 ml Aripiprazole (Aripiprazole 30 Mg Tablet) 30 mg PO DAILY STEWART Last Admin: 12/22/24 09:05 Dose: 30 mg Benzocaine (Throat Lozenge, Medicated Lozenge) 1 lozenge MUCOUS MEM Q2H PRN PRN Reason: Sore Throat Last Admin: 12/22/24 07:05 Dose: 1 lozenge Capsaicin (Capsaicin 0.025% Cream 60 Gm Tube) 1 appl TOPICAL TID PRN; Protocol PRN Reason: leg pain Last Admin: 12/21/24 06:45 Dose: 1 appl Clonidine HCl (Clonidine Hcl 0.1 Mg Tablet) 0.1 mg PO Q4H PRN; Protocol PRN Reason: moderate anxiety Last Admin: 12/20/24 22:18 Dose: 0.1 mg Clozapine (Clozapine 100 Mg Tablet) 400 mg PO BEDTIME STEWART Last Admin: 12/21/24 22:05 Dose: 400 mg Diazepam (Diazepam 5 Mg Tablet) 5 mg PO TID STEWART Last Admin: 12/22/24 15:20 Dose: 5 mg Diphenhydramine HCl (Diphenhydramine Hcl 25 Mg Capsule) 25 mg PO TID STEWART On Hold: 12/04/24 22:11 Last Admin: 12/04/24 22:16 Dose: 25 mg Divalproex Sodium (Divalproex Sodium Er 500 Mg Tab.Er.24h) 3,000 mg PO BEDTIME STEWART Last Admin: 12/21/24 22:09 Dose: 3,000 mg Docusate Sodium (Docusate Sodium 100 Mg Capsule) 200 mg PO DAILY [facility] Last Admin: 12/22/24 09:04 Dose: 200 mg Docusate Sodium (Docusate Sodium 100 Mg Capsule) 100 mg PO BEDTIME [facility] Last Admin: 12/21/24 22:05 Dose: 100 mg Fenofibrate (Fenofibrate 160 Mg Tablet) 160 mg PO DAILY [facility] Last Admin: 12/22/24 09:05 Dose: 160 mg Fluticasone Propionate (Fluticasone Propionate Nasal 16 Gm [place]) 1 spray NOSTRIL-B BEDTIME [facility] Last Admin: 12/21/24 22:11 Dose: 1 spray Fluticasone Propionate (Fluticasone Propionate Nasal 16 Gm [place]) 1 spray NOSTRIL-B DAILY PRN PRN Reason: Nasal allergy Last Admin: 11/24/24 06:25 Dose: 1 spray Glycopyrrolate (Glycopyrrolate 1 Mg Tablet) 1 mg PO TID [facility] Last Admin: 12/22/24 15:19 Dose: 1 mg Ibuprofen (Ibuprofen 400 Mg Tablet) 400 mg PO Q6H PRN PRN Reason: Pain, Moderate(Pain Scale 4-6) Last Admin: 12/22/24 07:04 Dose: 400 mg Lactulose (Lactulose 20 Gm/30 Ml Solution) 20 gm PO DAILY [facility] On Hold: 12/10/24 08:55 Last Admin: 12/10/24 08:39 Dose: 20 gm Lidocaine (Lidocaine 5 % Ointment 35 Gm) 1 appl TOPICAL Q6H PRN; Protocol PRN Reason: Pain, Mild (Pain Scale 1-3) Lorazepam (Lorazepam 1 Mg Tablet) 1 mg PO Q8H PRN PRN Reason: Anxiety Last Admin: 12/22/24 07:05 Dose: 1 mg Magnesium Hydroxide (Milk Of Magnesia 30 Ml Oral.Susp) 30 ml PO DAILY PRN PRN Reason: Constipation Last Admin: 11/28/24 14:32 Dose: 30 ml Ondansetron HCl (Ondansetron Odt 4 Mg Tab.Rapdis) 4 mg TRANSLINGU Q6H PRN PRN Reason: Nausea and Vomiting Last Admin: 11/28/24 16:14 Dose: 4 mg Polyethylene Glycol (Polyethylene Glycol 3350 17 Gm Powd.Pack) 17 gm PO DAILY STEWART On Hold: 12/04/24 10:12 Last Admin: 12/04/24 10:07 Dose: Not Given Polyethylene Glycol (Polyethylene Glycol 3350 17 Gm Powd.Pack) 17 gm PO DAILY PRN PRN Reason: Constipation Last Admin: 11/28/24 16:16 Dose: 17 gm Risperidone (Risperidone 2 Mg Tablet) 4 mg PO BEDTIME STEWART Last Admin: 12/21/24 22:06 Dose: 4 mg Risperidone (Risperidone 1 Mg Tablet) 1 mg PO DAILY STEWART Last Admin: 12/22/24 09:05 Dose: 1 mg Trazodone HCl (Trazodone Hcl 50 Mg Tablet) 50 mg PO BEDTIME MRX1 PRN PRN Reason: Insomnia Last Admin: 12/20/24 22:18 Dose: 50 mg Trihexyphenidyl HCl (Trihexyphenidyl Hcl 2 Mg Tablet) 1 mg PO TID STEWART Last Admin: 12/22/24 15:19 Dose: 1 mg Allergies Allergies Allergy/AdvReac Type Severity Reaction Status Date / Time benztropine (From COGENTIN) Allergy Unknown UNKNOWN Verified 11/16/24 15:51 propranolol (From INDERAL [place]) Allergy Unknown UNKNOWN Verified 11/16/24 15:51 chaste tree Allergy Unknown Verified 11/16/24 15:51 lithium Allergy Unknown Verified 11/16/24 15:51 Assessment & Plan Assessment & Plan (1) Schizoaffective disorder, bipolar type: Status: Acute Code(s): F25.0 - Schizoaffective disorder, bipolar type (2) Bilateral edema of lower extremity: Status: Acute Code(s): R60.0 - Localized edema (3) Autism spectrum disorder: Status: Acute Code(s): F84.0 - Autistic disorder (4) Cellulitis: Status: Resolved Code(s): L03.90 - Cellulitis, unspecified (5) Class 3 obesity: Status: Acute Code(s): E66.813 - Obesity, class 3 Plan Patient is a 34-year-old male with history of schizoaffective disorder bipolar type, Autism Spectrum Disorder, who lives in a snf, on a [facility] who presents for depression. Patient reports that every 7 weeks (and every 4 months) medications don't work...and I feel depressed.... He says the the depression last anywhere from 2 to 12 days.. And then resolves on it's own without medication changes. Patient reports that he had suicidal ideation a few days ago, no plan but does not now. Patient says sometimes he hears sounds or voices that others do not hear, sometimes laughing noise but not very often and usually just during sleep. Discussed medication regimen and patient said that recently his Depakote was increased because he was having mood swings but it was difficult for him to give details. Discussed medication options and patient agrees to increase Wellbutrin to 450 mg. Formulation/clinical reasoning: Patient reports that episodically he still gets bouts of depression that can last for longer than a week however this seemed to resolve on their own. He is not sure what triggers them. Patient says he is already feeling better now that he is on the unit because of the friendships and interactions he has made since coming to the unit; patient signed a 3 day notice. Discussed medication options and patient agrees to increase Wellbutrin to 450 mg. Embedded Firmware Developer wonders if perhaps patient can remain at Wellbutrin 300 mg and just take the extra 150 mg if he starts to feel depressed, sort of as an episodic p.r.n. -patient currently on 2 antipsychotics, including Clozaril and Risperdal; -some TD and pill rolling b/l hand tremor observed; wonder if Risperdal dose could be lowered; consider Ingrezza Of note patient had severely high Triacylglycerides of 898. It appears to have been taken while patient fasting however patient is not sure. TAG this high puts patient at risk for pancreatitis. Will redraw labs tomorrow morning to ensure fasting however for now will treat as if this is an accurate lab Hospital course: 11/18: Continue current management and treatment plan. 11/19: Increase Depakote to 500 mg in AM and continue 1,000 mg HS. 11/20: continue current management and treatment plan. 11/21 Patient has become manic over the past several days. Additional Depakote dose was added but patient remains manic, grandiose, labile and intrusive. 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 Patient at 1 point broke down crying about the of his parents, saying that his mother was murdered but then saying she had a brain bleed.. Patient saying that he is from [place] and is going to go back and live his life and [place]... Initially demanding to be discharged today but was able to be redirected. Patient agrees to increased medications including adding Zyprexa -will hold Wellbutrin; seems likely that increasing Wellbutrin was what triggered manic episode -Increasing bedtime Depakote to 1250 mg -patient hardly slept last night and added Zyprexa 10 mg b.i.d.; plan is to discontinue once jacob subsides -reviewed labs and repeat cholesterol shows highly elevated TAG>500 though not as high as the day before 11/22 Patient did sleep some last night with added Zyprexa. Still manic but a little less intense and though still with some grandiose ideations, much less so. Patient still intrusive to others but redirectable. Patient did agree that he was acting manic yesterday but says he is fine now and wants to discharge. He persisted in demanding for discharge today and expressed frustration when told this is not possible but remained in behavioral control. -Great right toe with cellulitis; started on Keflex -Depakote labs ordered for Wednesday *patient is not stable to return to snf at this time. Will try to get him to retract his 3 day notice but will otherwise file for civil commitment; that said hopefully will not need to go to court and manic episode will resolve 11/23/24: Patient slept for 2 hours, was medication compliant. Denies side effect but observed have some hand tremors. Restless, racing thoughts, intrusive, poor boundaries, need multiple redirections most of the time to respect personal space. He is over friendly, bright, manic but appeared to be less manic compared to yesterday. Can be perseverative on discharge, redirectable and need to remind that he is not leaving today a couple of times. He retracted 3 day notice. He seems to be forgetful. To PRNs with mild to moderate effects. He works on puzzle, and cleaning up his room. He has an reasonable planning for the future, appeared to be grandiose no aggressive behavior, can be irritable at times when things not the way he requested. Continue to monitor for sleeping pattern. 11/24/24: Slept slightly improved compared to the night before, he was able to slept for 4 hours. Was medication compliant. Mood is I am happy. I am calm and relaxed . Reports foot pain, nursing have patient to put lotion on, encouraged to elevated legs when he resting as left food appear to be slightly swollen. He said he would like to go back to his snf. He also asked if he can call Carla and Max to apologize to them. Read direct patient not calling so many times that may annoying other persons. He admitted that he need to give them a break . Observe want time he was on the phone, appropriate. He is slightly better compared to yesterday, able to sit still, listen to advice/redirection. Even though he has delusional, and grandiose thoughts. Thinking he see a snake in his toilet, seeing his brother coming to see him. Per nursing he had unwitnessed fall when trying to put himself sitting down on the chair but missed it. Slightly better in term of manic behaviors, redirectable and less demanding. Redirected for personal space. Accepted it without any problems. 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 With much effort, Pt remains able to be redirected; examined great rt toe which remains with clear signs of cellulites -Start Ziprasidone -obtained EKG and qtc WNL -Depakote level with much room so will switch depakote to ER so can make at bedtime to help w/ sleep and will increase dose (Depakote IR 1750mg ~ Dep ER 2000) 11/26 Patient remains manic, intrusive, grandiose, tangential. Patient is intrusive to the point where some peers are getting very angry and some feeling provoked. -So far unable to break this manic episode; so far Zyprexa and Geodon have not affected patient and patient is in danger of unintentionally inciting peer aggression. -Thorazine 100 mg did not help either; will try Thorazine 200 mg t.i.d. combined with diazepam 15 mg t.i.d. (10mg did nothing) -if Thorazine does not help, will consider Haldol; also will soon get Depakote level and maybe able to increase other 11/27 Patient remains manic, grandiose, very intrusive with peers and staff, going into patient's rooms, walking up in into rejection himself, getting very close to people making people both angry and scared. Difficult decisions regarding treatment. Discussed case with Dr. Vázquez who agrees with plan For now, will discontinue Thorazine and Valium as policy writer typist is somewhat concern that all this sedating medication could add on a delirium to his already manic behaviors. Instead, will try Trileptal to help break manic episode; Trileptal has the least side effect risk profile of options so will give it a try (though not very robust evidence) -Considering Tegretol however this will lower the effective dose of both clozapine and Risperdal by 50% or more creating a confusing treatment regimen; also can affect the liver and bone marrow and patient is already on Depakote and Clozaril -also considering Haldol however patient is already on 2 antipsychotics -also considering Tamoxifen used off-label however increases thrombo embolism risk and can raise the effective doses of clozapine and Risperdal ECT remains the gold standard to treat refractory jacob however patient has a guardian and Vela which would need to be amended 11/28 Patient angry, punching the wall, yelling aggressively, peers is getting scared; 1 peer felt threatened and confronted patient pushed him but both were able to be redirected. Made a threatening remark to staff i'm going to break you... Remains floridly manic, hyperverbal, intrusive... He did say yes to ECT however understands guardian needs to weigh in clinical reasoning: -patient's increasing aggression and agitation seems directly correlated with having had Thorazine and diazepam discontinued. Restarted it for the purpose of patient and milieu safety. However it later came to policy writer typist's attention that Thorazine is not 1 of the antipsychotics listed on his community Vela..? Options that are available are Abilify and Haldol. Embedded Firmware Developer lowered Thorazine to 100 mg and allowed for 1 last for tonight, again for milieu and patient safety however will discontinue it and will have to see if the other options are helpful Discussed case with colleague Dr. Meza who continues to agree that using Tegretol would cause too much mixing up of med regimen and that best option is to help patient remain safe while Depakote gets a chance to become therapeutic. Depakote level today 108; will continue with Depakote ER 3000mg and get level tomorrow -talked with Patients guardian Breezy Edmondsmyles who says he has no objection to patient getting ECT 11/29 Patient for the 1st time since manic episodes started, more subdued today and slept from much of the day. During periods when he was awake, remains manic, intrusive, grandiose and saying bizarre things such as I am hairy potters twin and I need to get back to [facility]. -hopefully this is the sign that patient's manic episode is starting to wane; will continue with Depakote ER 3000 mg and get another level tomorrow (The?therapeutic range for acute jacob is 50?125 mcg/mL) 11/30 Still manic -added Abilfy 10mg daily; would prefer to try Haldol (both on Vela) but since Qtc is elevated will try Abilify first...(as mentioned despite qtc elevation, risk of TdP remains very low and Haldol remains an option. 12/01/24: Patient continued to be manic, intrusive, irritable most of the day, making threats. Making grandiose and paranoid delusional statements I need to go back to [place] to protect Jet Goldy . I am . I am the new president of the country . Patient was naked in the savage asking to talk to mental health social worker this morning per staffing reports. Patient remains in the group room at the other hallway. Remain on kitchen restriction, limit access to the other end of the savage. Patient compliant with medications, see PRNs for anxiety and agitation, restless, hyperverbal, hyperactive, irritable, needs a lot redirection,incongruent with mood stating that he is happy and have no anxiety or depression. Poor insight and poor judgment. Denies that he has any order diagnosis or mental health issues except for anger disorder VPA level on 11/30/24: 117.9 (The?therapeutic range for acute jacob is 50?125 mcg/mL) 12/02/24: Patient slept for 9 hours last night. Compliant with meds, less irritable and more pleasant today. Continue to delusional and grandiose. He is calmer compare to yesterday. No naked episode. Discontinue Abilify, start Haldol 5mg TID with goal to control manic/psychotic, racing thoughts/behaviors. Some mild drooling which improving per nursing. Lactulose 20mg BID. (Ammnonia level 60H) Discontinue Abilfy. start Haldol 5mg TID. EKG done- no change compare to previous record. Slightly prolong QTc. 12/03/24: Patient slept for 8 hours, compliant with medications,, appeared to have tremors, and drooling which is not worsening. Patient appeared to be sedated this morning with mild irritable mood, sometimes he hearing from his room loudly, but spend more time in his room today. Slightly less intrusive. Continued to be delusional and grandiose. He has loose stool, Colace and MiraLax was held but continue offer lactulose. We will check ammonia level tomorrow. Observe by lateral lower extremity edema. Hospitalist consult placed. Regarding depakote level: The?therapeutic range for acute jacob is 50?125 mcg/mL, and most patients respond within this range?1https://dailymed.nlm.nih.gov/dailymed/drugInfo.cfm?vvekz=[email or web address]?2https://pubmed.ncbi.nlm.nih.gov/49051959.? of note, regarding EKG with prolonged Qtc: The incidence of torsades de pointes (TdP) from antipsychotic-induced QTc prolongation is?very low, estimated at?0.01?0.1%?(1?10 per 10,000 exposures) in clinical practice?1https://pubmed.ncbi.nlm.nih.gov/28139073?2https://pubmed.ncbi.nlm.nih.gov/65775618. ?[And in the cases where someone did actually get TdP], the case fatality of TdP is also low, with?<10%?of TdP episodes resulting in cardiac , 12/04 Patient is doing better; less manic, less intrusive and resting more.? Still making grandiose delusional statements such as he is running for president with Roya Jolly, but certainly symptoms are improving.? He says he is on too much medication and policy writer typist agrees to review? -Lowered to Diazepam 5mg TID (down from 10mg) -dc Benadryl 25mg TID -has been refusing Lactulose; will recheck Ammonia; if elevated will start LCarnatine 12/05 remains hypomanic and making grandiose statements; continue treatment plan; continues to refuse lactulose. Will get labs 12/06 Still manic/hypomanic; overall more easily redirected and less hyperactive but still can be loud, intrusive and he continues to make grandiose statements saying he is the boss, he owns different things, he was born in different countries....sometimes yelling loudly in frustration...none of which is baseline -policy writer typist tried reality testing however this frustrated patient who remains with impaired insight to his manic episode increase Haldol to total daily dose of 25mg (up from 15mg) Monitoring Qtc ( QTcB Int : 471 ms on 12/06) Ammonia WNL; will lower Lactulose to 20mg daily (down from BID-has not always taken bedtime dose) 12/07 Patient remains manic/hypomanic; will continue current Haldol dose but may increase soon 12/08 remains manic, intrusive and grandiose; group practice pediatrician came in met with him and find some far from baseline. Patient getting angry or today than previously and yelling angrily in the hallway needing to be frequently redirected as he is causing anxiety in the milieu Will increase Haldol to 10 mg t.i.d. If this does not work, will strongly consider tamoxifen as it will take considerable time to petition the court to add ECT to his community [place]ane 12/09 Remains manic, intrusive with peers. Yelling very angrily this morning in the shower; pretended the door was locked at 1 point. Sometimes yelling loudly in the hallway and slamming doors. Otherwise comes up to staff and peers, typically making unrelated, grandiose statements. Told policy writer typist that the police are after him... That we need to find his brother and he could be in [place], [place]... Treatment plan: -patient seems to have regressed some in his progress...(though this is a nuanced observation and the progress alluded to was minimal if even there) For now will continue with Haldol 10 mg t.i.d.. It is difficult to know whether or not Abilify had been helping and that he decompensated a little once it was replaced with Haldol he started decompensating or if nothing has been helpful and his manic symptoms just ebb and flow... -tamoxifen remains an option 12/10 pretty much the same presentation; maybe a little more calm? Difficult to tell. Patient remains intrusive but redirectable. -continue current treatment plan for now; will give a few more days on Haldol to see if patient improves 12/11 Remains manic/hypomanic; maybe easier to redirect but still intrusive; still making bizarre or grandiose statements maybe a little less so. Patient continues to have very angry outburst, slamming doors and hitting the wall, sometimes yelling loudly and aggressively, but again able to be redirected -discussed with staff and since this is that patient may have improved a little bit but not all that much; will continue with Haldol 10 mg t.i.d. but strongly considering switching to Abilify 12/12 Patient reports that he has been feeling more stiff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
[2024-12-22 20:00] VITALS: BP 140/74; PULSE 118; RESP 18; TEMP 36.8; O2SAT 98
[2024-12-23 08:00] VITALS: BP 140/84; PULSE 106; RESP 18; TEMP 35.7; O2SAT 96
[2024-12-23] MEDS: ARIPiprazole 30 MG TABLET PO (09:59)
--- NOTE | 2024-12-23 16:46 | HO.PSYCHPN ---
Subjective Subjective Date of Service: 12/23/24 Reason For Visit: Depressive D/O Schizoaffective Subjective Notes: [place]ona Order ([facility]) and Conditional Voluntary Interim History: Medical record and nursing notes reviewed; case discussed during rounds with team/nursing staff, and met with patient for supportive therapy/psychoeducation, as well as medication management. Patient slept through the night, compliant with meds. Continue to improve, some moment of frustrated but redirectable and calm down quick when address his concerns. Patient was intrusive and poor boundaries with peers in the kitchen, aggravating peers, He got irritable and angry but able to control his anger, not slamming the door, was tearful x1 when talking he was dreaming, racing thought regarding discharged, delusions saying 'I believe in spirit. I am God. I am the chosen one . I do not like black women when talking about female peers who telling him to stay away from her. Medication Compliance: Yes Side effects from medications: No Attending Groups: Intermittent Review of Systems Acute medical concerns: No Medical Review of Systems: unchanged Review of Systems Review of Systems Report Left toe nails pain by nursing but denies pain during assessment. Yes all other systems are reviewed and are negative Mental Status Exam Mental Status Exam Narrative: Pt is alert and oriented; behavior is more organized, in better control, though still more calm; still making fabricated, grandiose statements but much less so; less intrusive; patient is not in distress; dressed in casual and hospital attire, kempt hair and adequate hygiene: mood is described as I am not anxious or depressed and affect broad; eye contact appropriate; Speech is normal rate and volume, not really rambling; moment with racing thoughts but improved, no psychomotor agitation present, thought process more goal oriented with less tangential; Thought content remains with intermittently with grandiose delusions; denies any SI/HI. Denies AVH. Patients insight and judgment are improving Diagnostics Vital Signs (24Hr): Vital Signs - 24 hr 12/22/24 20:00 12/23/24 08:00 Temperature 98.2 F 96.3 F L Pulse Rate 118 H 106 H Respiratory Rate 18 18 Blood Pressure 140/74 H 140/84 H Pulse Oximetry 98 96 Oxygen Delivery Method Room Air Room Air BMI result Body Mass Index 34.1 Labs 11/28/24 10:37 Medications Medications Current Medications Acetaminophen (Acetaminophen 325 Mg Tablet) 650 mg PO Q6H PRN PRN Reason: Headache/Pain, Scale 1-10 Last Admin: 12/19/24 06:26 Dose: 650 mg Al Hydroxide/Mg Hydroxide (Magnesium Hydrox/Alum Hydrox 30 Ml Oral.Susp) 30 ml PO Q6H PRN PRN Reason: Heartburn/Nausea Last Admin: 11/21/24 01:55 Dose: 30 ml Aripiprazole (Aripiprazole 30 Mg Tablet) 30 mg PO DAILY STEWART Last Admin: 12/23/24 09:59 Dose: 30 mg Benzocaine (Throat Lozenge, Medicated Lozenge) 1 lozenge MUCOUS MEM Q2H PRN PRN Reason: Sore Throat Last Admin: 12/22/24 07:05 Dose: 1 lozenge Capsaicin (Capsaicin 0.025% Cream 60 Gm Tube) 1 appl TOPICAL TID PRN; Protocol PRN Reason: leg pain Last Admin: 12/23/24 14:10 Dose: 1 appl Clonidine HCl (Clonidine Hcl 0.1 Mg Tablet) 0.1 mg PO Q4H PRN; Protocol PRN Reason: moderate anxiety Last Admin: 12/22/24 20:49 Dose: 0.1 mg Clozapine (Clozapine 100 Mg Tablet) 400 mg PO BEDTIME STEWART Last Admin: 12/22/24 20:49 Dose: 400 mg Diazepam (Diazepam 5 Mg Tablet) 5 mg PO TID STEWART Last Admin: 12/23/24 14:13 Dose: 5 mg Diphenhydramine HCl (Diphenhydramine Hcl 25 Mg Capsule) 25 mg PO TID STEWART On Hold: 12/04/24 22:11 Last Admin: 12/04/24 22:16 Dose: 25 mg Divalproex Sodium (Divalproex Sodium Er 500 Mg Tab.Er.24h) 3,000 mg PO BEDTIME STEWART Last Admin: 12/22/24 20:48 Dose: 3,000 mg Docusate Sodium (Docusate Sodium 100 Mg Capsule) 200 mg PO DAILY STEWART Last Admin: 12/23/24 09:59 Dose: 200 mg Docusate Sodium (Docusate Sodium 100 Mg Capsule) 100 mg PO BEDTIME STEWART Last Admin: 12/22/24 20:51 Dose: Not Given Fenofibrate (Fenofibrate 160 Mg Tablet) 160 mg PO DAILY STEWART Last Admin: 12/23/24 09:59 Dose: 160 mg Fluticasone Propionate (Fluticasone Propionate Nasal 16 Gm Makinen) 1 spray NOSTRIL-B BEDTIME STEWART Last Admin: 12/22/24 20:51 Dose: 1 spray Fluticasone Propionate (Fluticasone Propionate Nasal 16 Gm Makinen) 1 spray NOSTRIL-B DAILY PRN PRN Reason: Nasal allergy Last Admin: 11/24/24 06:25 Dose: 1 spray Glycopyrrolate (Glycopyrrolate 1 Mg Tablet) 1 mg PO TID STEWART Last Admin: 12/23/24 14:13 Dose: 1 mg Ibuprofen (Ibuprofen 400 Mg Tablet) 400 mg PO Q6H PRN PRN Reason: Pain, Moderate(Pain Scale 4-6) Last Admin: 12/23/24 14:10 Dose: 400 mg Lactulose (Lactulose 20 Gm/30 Ml Solution) 20 gm PO DAILY STEWART On Hold: 12/10/24 08:55 Last Admin: 12/10/24 08:39 Dose: 20 gm Lidocaine (Lidocaine 5 % Ointment 35 Gm) 1 appl TOPICAL Q6H PRN; Protocol PRN Reason: Pain, Mild (Pain Scale 1-3) Lorazepam (Lorazepam 1 Mg Tablet) 1 mg PO Q8H PRN PRN Reason: Anxiety Last Admin: 12/22/24 21:33 Dose: 1 mg Magnesium Hydroxide (Milk Of Magnesia 30 Ml Oral.Susp) 30 ml PO DAILY PRN PRN Reason: Constipation Last Admin: 11/28/24 14:32 Dose: 30 ml Ondansetron HCl (Ondansetron Odt 4 Mg Tab.Rapdis) 4 mg TRANSLINGU Q6H PRN PRN Reason: Nausea and Vomiting Last Admin: 11/28/24 16:14 Dose: 4 mg Polyethylene Glycol (Polyethylene Glycol 3350 17 Gm Powd.Pack) 17 gm PO DAILY STEWART On Hold: 12/04/24 10:12 Last Admin: 12/04/24 10:07 Dose: Not Given Polyethylene Glycol (Polyethylene Glycol 3350 17 Gm Powd.Pack) 17 gm PO DAILY PRN PRN Reason: Constipation Last Admin: 11/28/24 16:16 Dose: 17 gm Risperidone (Risperidone 2 Mg Tablet) 4 mg PO BEDTIME STEWART Last Admin: 12/22/24 20:48 Dose: 4 mg Risperidone (Risperidone 1 Mg Tablet) 1 mg PO DAILY STEWART Last Admin: 12/23/24 09:59 Dose: 1 mg Trazodone HCl (Trazodone Hcl 50 Mg Tablet) 50 mg PO BEDTIME MRX1 PRN PRN Reason: Insomnia Last Admin: 12/22/24 20:48 Dose: 50 mg Trihexyphenidyl HCl (Trihexyphenidyl Hcl 2 Mg Tablet) 1 mg PO TID [facility] Last Admin: 12/23/24 14:13 Dose: 1 mg Allergies Allergies Allergy/AdvReac Type Severity Reaction Status Date / Time benztropine (From COGENTIN) Allergy Unknown UNKNOWN Verified 11/16/24 15:51 propranolol (From INDERAL LA) Allergy Unknown UNKNOWN Verified 11/16/24 15:51 chaste tree Allergy Unknown Verified 11/16/24 15:51 lithium Allergy Unknown Verified 11/16/24 15:51 Assessment & Plan Assessment & Plan (1) Schizoaffective disorder, bipolar type: Status: Acute Code(s): F25.0 - Schizoaffective disorder, bipolar type (2) Bilateral edema of lower extremity: Status: Acute Code(s): R60.0 - Localized edema (3) Autism spectrum disorder: Status: Acute Code(s): F84.0 - Autistic disorder (4) Cellulitis: Status: Resolved Code(s): L03.90 - Cellulitis, unspecified (5) Class 3 obesity: Status: Acute Code(s): E66.813 - Obesity, class 3 Plan Patient is a 34-year-old male with history of schizoaffective disorder bipolar type, Autism Spectrum Disorder, who lives in a detention, on a [facility] who presents for depression. Patient reports that every 7 weeks (and every 4 months) medications don't work...and I feel depressed.... He says the the depression last anywhere from 2 to 12 days.. And then resolves on it's own without medication changes. Patient reports that he had suicidal ideation a few days ago, no plan but does not now. Patient says sometimes he hears sounds or voices that others do not hear, sometimes laughing noise but not very often and usually just during sleep. Discussed medication regimen and patient said that recently his Depakote was increased because he was having mood swings but it was difficult for him to give details. Discussed medication options and patient agrees to increase Wellbutrin to 450 mg. Formulation/clinical reasoning: Patient reports that episodically he still gets bouts of depression that can last for longer than a week however this seemed to resolve on their own. He is not sure what triggers them. Patient says he is already feeling better now that he is on the unit because of the friendships and interactions he has made since coming to the unit; patient signed a 3 day notice. Discussed medication options and patient agrees to increase Wellbutrin to 450 mg. Sheet Heater wonders if perhaps patient can remain at Wellbutrin 300 mg and just take the extra 150 mg if he starts to feel depressed, sort of as an episodic p.r.n. -patient currently on 2 antipsychotics, including Clozaril and Risperdal; -some TD and pill rolling b/l hand tremor observed; wonder if Risperdal dose could be lowered; consider Liza Of note patient had severely high Triacylglycerides of 898. It appears to have been taken while patient fasting however patient is not sure. TAG this high puts patient at risk for pancreatitis. Will redraw labs tomorrow morning to ensure fasting however for now will treat as if this is an accurate lab Hospital course: 11/18: Continue current management and treatment plan. 11/19: Increase Depakote to 500 mg in AM and continue 1,000 mg HS. 11/20: continue current management and treatment plan. 11/21 Patient has become manic over the past several days. Additional Depakote dose was added but patient remains manic, grandiose, labile and intrusive. 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 Patient at 1 point broke down crying about the of his parents, saying that his mother was murdered but then saying she had a brain bleed.. Patient saying that he is from [place] and is going to go back and live his life and [place]... Initially demanding to be discharged today but was able to be redirected. Patient agrees to increased medications including adding Zyprexa -will hold Wellbutrin; seems likely that increasing Wellbutrin was what triggered manic episode -Increasing bedtime Depakote to 1250 mg -patient hardly slept last night and added Zyprexa 10 mg b.i.d.; plan is to discontinue once jacob subsides -reviewed labs and repeat cholesterol shows highly elevated TAG>500 though not as high as the day before 11/22 Patient did sleep some last night with added Zyprexa. Still manic but a little less intense and though still with some grandiose ideations, much less so. Patient still intrusive to others but redirectable. Patient did agree that he was acting manic yesterday but says he is fine now and wants to discharge. He persisted in demanding for discharge today and expressed frustration when told this is not possible but remained in behavioral control. -Great right toe with cellulitis; started on Keflex -Depakote labs ordered for Wednesday *patient is not stable to return to detention at this time. Will try to get him to retract his 3 day notice but will otherwise file for civil commitment; that said hopefully will not need to go to court and manic episode will resolve 11/23/24: Patient slept for 2 hours, was medication compliant. Denies side effect but observed have some hand tremors. Restless, racing thoughts, intrusive, poor boundaries, need multiple redirections most of the time to respect personal space. He is over friendly, bright, manic but appeared to be less manic compared to yesterday. Can be perseverative on discharge, redirectable and need to remind that he is not leaving today a couple of times. He retracted 3 day notice. He seems to be forgetful. To PRNs with mild to moderate effects. He works on [employer], and cleaning up his room. He has an reasonable planning for the future, appeared to be grandiose no aggressive behavior, can be irritable at times when things not the way he requested. Continue to monitor for sleeping pattern. 11/24/24: Slept slightly improved compared to the night before, he was able to slept for 4 hours. Was medication compliant. Mood is I am happy. I am calm and relaxed . Reports foot pain, nursing have patient to put lotion on, encouraged to elevated legs when he resting as left food appear to be slightly swollen. He said he would like to go back to his detention. He also asked if he can call Carla and Max to apologize to them. Read direct patient not calling so many times that may annoying other persons. He admitted that he need to give them a break . Observe want time he was on the phone, appropriate. He is slightly better compared to yesterday, able to sit still, listen to advice/redirection. Even though he has delusional, and grandiose thoughts. Thinking he see a snake in his toilet, seeing his brother coming to see him. Per nursing he had unwitnessed fall when trying to put himself sitting down on the chair but missed it. Slightly better in term of manic behaviors, redirectable and less demanding. Redirected for personal space. Accepted it without any problems. 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 With much effort, Pt remains able to be redirected; examined great rt toe which remains with clear signs of cellulites -Start Ziprasidone -obtained EKG and qtc WNL -Depakote level with much room so will switch depakote to ER so can make at bedtime to help w/ sleep and will increase dose (Depakote IR 1750mg ~ Dep ER 2000) 11/26 Patient remains manic, intrusive, grandiose, tangential. Patient is intrusive to the point where some peers are getting very angry and some feeling provoked. -So far unable to break this manic episode; so far Zyprexa and Geodon have not affected patient and patient is in danger of unintentionally inciting peer aggression. -Thorazine 100 mg did not help either; will try Thorazine 200 mg t.i.d. combined with diazepam 15 mg t.i.d. (10mg did nothing) -if Thorazine does not help, will consider Haldol; also will soon get Depakote level and maybe able to increase other 11/27 Patient remains manic, grandiose, very intrusive with peers and staff, going into patient's rooms, walking up in into rejection himself, getting very close to people making people both angry and scared. Difficult decisions regarding treatment. Discussed case with Dr. Vázquez who agrees with plan For now, will discontinue Thorazine and Valium as marketing copywriter is somewhat concern that all this sedating medication could add on a delirium to his already manic behaviors. Instead, will try Trileptal to help break manic episode; Trileptal has the least side effect risk profile of options so will give it a try (though not very robust evidence) -Considering Tegretol however this will lower the effective dose of both clozapine and Risperdal by 50% or more creating a confusing treatment regimen; also can affect the liver and bone marrow and patient is already on Depakote and Clozaril -also considering Haldol however patient is already on 2 antipsychotics -also considering Tamoxifen used off-label however increases thrombo embolism risk and can raise the effective doses of clozapine and Risperdal ECT remains the gold standard to treat refractory jacob however patient has a guardian and [place] which would need to be amended 11/28 Patient angry, punching the wall, yelling aggressively, peers is getting scared; 1 peer felt threatened and confronted patient pushed him but both were able to be redirected. Made a threatening remark to staff i'm going to break you... Remains floridly manic, hyperverbal, intrusive... He did say yes to ECT however understands guardian needs to weigh in clinical reasoning: -patient's increasing aggression and agitation seems directly correlated with having had Thorazine and diazepam discontinued. Restarted it for the purpose of patient and milieu safety. However it later came to marketing copywriter's attention that Thorazine is not 1 of the antipsychotics listed on his community Corona..? Options that are available are Abilify and Haldol. Sheet Heater lowered Thorazine to 100 mg and allowed for 1 last for tonight, again for milieu and patient safety however will discontinue it and will have to see if the other options are helpful Discussed case with colleague Dr. Meza who continues to agree that using Tegretol would cause too much mixing up of med regimen and that best option is to help patient remain safe while Depakote gets a chance to become therapeutic. Depakote level today 108; will continue with Depakote ER 3000mg and get level tomorrow -talked with Patients guardian Breezy Granados who says he has no objection to patient getting ECT 11/29 Patient for the 1st time since manic episodes started, more subdued today and slept from much of the day. During periods when he was awake, remains manic, intrusive, grandiose and saying bizarre things such as I am hairy potters twin and I need to get back to [facility]. -hopefully this is the sign that patient's manic episode is starting to wane; will continue with Depakote ER 3000 mg and get another level tomorrow (The?therapeutic range for acute jacob is 50?125 mcg/mL) 11/30 Still manic -added Abilfy 10mg daily; would prefer to try Haldol (both on Corona) but since Qtc is elevated will try Abilify first...(as mentioned despite qtc elevation, risk of TdP remains very low and Haldol remains an option. 12/01/24: Patient continued to be manic, intrusive, irritable most of the day, making threats. Making grandiose and paranoid delusional statements I need to go back to [place] to protect Jet Goldy . I am . I am the new president of the country . Patient was naked in the savage asking to talk to social work manager this morning per staffing reports. Patient remains in the group room at the other hallway. Remain on kitchen restriction, limit access to the other end of the savage. Patient compliant with medications, see PRNs for anxiety and agitation, restless, hyperverbal, hyperactive, irritable, needs a lot redirection,incongruent with mood stating that he is happy and have no anxiety or depression. Poor insight and poor judgment. Denies that he has any order diagnosis or mental health issues except for anger disorder VPA level on 11/30/24: 117.9 (The?therapeutic range for acute jacob is 50?125 mcg/mL) 12/02/24: Patient slept for 9 hours last night. Compliant with meds, less irritable and more pleasant today. Continue to delusional and grandiose. He is calmer compare to yesterday. No naked episode. Discontinue Abilify, start Haldol 5mg TID with goal to control manic/psychotic, racing thoughts/behaviors. Some mild drooling which improving per nursing. Lactulose 20mg BID. (Ammnonia level 60H) Discontinue Abilfy. start Haldol 5mg TID. EKG done- no change compare to previous record. Slightly prolong QTc. 12/03/24: Patient slept for 8 hours, compliant with medications,, appeared to have tremors, and drooling which is not worsening. Patient appeared to be sedated this morning with mild irritable mood, sometimes he hearing from his room loudly, but spend more time in his room today. Slightly less intrusive. Continued to be delusional and grandiose. He has loose stool, Colace and MiraLax was held but continue offer lactulose. We will check ammonia level tomorrow. Observe by lateral lower extremity edema. Hospitalist consult placed. Regarding depakote level: The?therapeutic range for acute jacob is 50?125 mcg/mL, and most patients respond within this range?1https://dailymed.nlm.nih.gov/dailymed/drugInfo.cfm?lxlwd=[email or web address]?2https://pubmed.ncbi.nlm.nih.gov/29409960.? of note, regarding EKG with prolonged Qtc: The incidence of torsades de pointes (TdP) from antipsychotic-induced QTc prolongation is?very low, estimated at?0.01?0.1%?(1?10 per 10,000 exposures) in clinical practice?1https://pubmed.ncbi.nlm.nih.gov/91296544?2https://pubmed.ncbi.nlm.nih.gov/45155769. ?[And in the cases where someone did actually get TdP], the case fatality of TdP is also low, with?<10%?of TdP episodes resulting in cardiac , 12/04 Patient is doing better; less manic, less intrusive and resting more.? Still making grandiose delusional statements such as he is running for president with [employer], but certainly symptoms are improving.? He says he is on too much medication and marketing copywriter agrees to review? -Lowered to Diazepam 5mg TID (down from 10mg) -dc Benadryl 25mg TID -has been refusing Lactulose; will recheck Ammonia; if elevated will start LCarnatine 12/05 remains hypomanic and making grandiose statements; continue treatment plan; continues to refuse lactulose. Will get labs 12/06 Still manic/hypomanic; overall more easily redirected and less hyperactive but still can be loud, intrusive and he continues to make grandiose statements saying he is the boss, he owns different things, he was born in different countries....sometimes yelling loudly in frustration...none of which is baseline -marketing copywriter tried reality testing however this frustrated patient who remains with impaired insight to his manic episode increase Haldol to total daily dose of 25mg (up from 15mg) Monitoring Qtc ( QTcB Int : 471 ms on 12/06) Ammonia WNL; will lower Lactulose to 20mg daily (down from BID-has not always taken bedtime dose) 12/07 Patient remains manic/hypomanic; will continue current Haldol dose but may increase soon 12/08 remains manic, intrusive and grandiose; group exercise class instructor came in met with him and find some far from baseline. Patient getting angry or today than previously and yelling angrily in the hallway needing to be frequently redirected as he is causing anxiety in the milieu Will increase Haldol to 10 mg t.i.d. If this does not work, will strongly consider tamoxifen as it will take considerable time to petition the court to add ECT to his community aDne 12/09 Remains manic, intrusive with peers. Yelling very angrily this morning in the shower; pretended the door was locked at 1 point. Sometimes yelling loudly in the hallway and slamming doors. Otherwise comes up to staff and peers, typically making unrelated, grandiose statements. Told marketing copywriter that the police are after him... That we need to find his brother and he could be in [place], [place]... Treatment plan: -patient seems to have regressed some in his progress...(though this is a nuanced observation and the progress alluded to was minimal if even there) For now will continue with Haldol 10 mg t.i.d.. It is difficult to know whether or not Abilify had been helping and that he decompensated a little once it was replaced with Haldol he started decompensating or if nothing has been helpful and his manic symptoms just ebb and flow... -tamoxifen remains an option 12/10 pretty much the same presentation; maybe a little more calm? Difficult to tell. Patient remains intrusive but redirectable. -continue current treatment plan for now; will give a few more days on Haldol to see if patient improves 12/11 Remains manic/hypomanic; maybe easier to redirect but still intrusive; still making bizarre or grandiose statements maybe a little less so. Patient continues to have very angry outburst, slamming doors and hitting the wall, sometimes yelling loudly and aggressively, but again able to be redirected -discussed with staff and since this is that patient may have improved a little bit but not all that much; will continue with Haldol 10 mg t.i.d. but strongly considering switching to Abilify 12/12 Patient reports that he has been feeling more stiff and also that Haldol has been giving him nightmares. Sheet Heater discussed this and discussed changing medications to Abilify. Patient agreed with this plan. Also agreed with artane/Trihexyphenidyl for stiffness, likely due to side effect of medication, since patient is allergic to Cogentin (though not clear what allergy is) -will discontinue Haldol and start Abilify; after 5 days of Haldol 10 mg t.i.d., patient's jacob has not really improved. Haldol is also potentially causing patient nightmares and maybe some increased stiffness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
[2024-12-23] MEDS: Throat Lozenge, Medicated LOZENGE 1 LOZENGE MUCOUS MEM (18:06)
[2024-12-23 19:45] VITALS: BP 123/60; PULSE 112; TEMP 35.9; O2SAT 96
[2024-12-24 07:44] VITALS: BP 130/81; PULSE 115; RESP 18; TEMP 36.5; O2SAT 98
[2024-12-24] MEDS: ARIPiprazole 30 MG TABLET PO (08:35)
[2024-12-24] MEDS: Throat Lozenge, Medicated LOZENGE 1 LOZENGE MUCOUS MEM ×3 (08:35→18:02)
--- NOTE | 2024-12-24 18:32 | HO.PSYCHPN ---
Subjective Subjective Date of Service: 12/24/24 Reason For Visit: Depressive D/O Schizoaffective Subjective Notes: [place] Order ([facility]) and Conditional Voluntary Healthcare Proxy: No Guardianship: No Medical Problems Affecting Mental Status: No Interim History: Medical record and nursing notes reviewed; case discussed during rounds with team/nursing staff, and met with patient for supportive therapy/psychoeducation, as well as medication management. Slept for 7 hours, more quiet this morning, continued to improve, less intrusive, less labile, no manic behavior. Compliant with medications, no additional side effects. Could be delusional and grandiose at times. He wants to be discharged. Medication Compliance: Yes Side effects from medications: No Attending Groups: No Review of Systems Acute medical concerns: No Medical Review of Systems: unchanged Review of Systems Review of Systems Constitutional: Denies fatigue and Denies fever(s) Cardiovascular: Denies chest pain and Denies dyspnea Respiratory: Denies dyspnea Gastrointestinal: Denies abdominal pain Psychiatric: denies suicidal ideation Endocrine: Denies fatigue Yes all other systems are reviewed and are negative Mental Status Exam Mental Status Exam Narrative: Pt is alert and oriented; behavior is more organized, in better control, though still more calm; still making fabricated, grandiose statements but much less so; less intrusive; patient is not in distress; dressed in casual and hospital attire, kempt hair and adequate hygiene: mood is described as good and affect broad; eye contact appropriate; Speech is normal rate and volume, not really rambling; moment with racing thoughts but improved, no psychomotor agitation present, thought process more goal oriented with less tangential; Thought content remains with intermittently with grandiose delusions; denies any SI/HI. Denies AVH. Patients insight and judgment are improving Diagnostics Vital Signs (24Hr): Vital Signs - 24 hr 12/23/24 19:45 12/24/24 07:44 Temperature 96.6 F L 97.7 F Pulse Rate 112 H 115 H Respiratory Rate 18 Blood Pressure 123/60 130/81 Pulse Oximetry 96 98 Oxygen Delivery Method Room Air Room Air BMI result Body Mass Index 34.1 Labs 11/28/24 10:37 Medications Medications Current Medications Acetaminophen (Acetaminophen 325 Mg Tablet) 650 mg PO Q6H PRN PRN Reason: Headache/Pain, Scale 1-10 Last Admin: 12/19/24 06:26 Dose: 650 mg Al Hydroxide/Mg Hydroxide (Magnesium Hydrox/Alum Hydrox 30 Ml Oral.Susp) 30 ml PO Q6H PRN PRN Reason: Heartburn/Nausea Last Admin: 11/21/24 01:55 Dose: 30 ml Aripiprazole (Aripiprazole 30 Mg Tablet) 30 mg PO DAILY [facility] Last Admin: 12/24/24 08:35 Dose: 30 mg Benzocaine (Throat Lozenge, Medicated Lozenge) 1 lozenge MUCOUS MEM Q2H PRN PRN Reason: Sore Throat Last Admin: 12/24/24 18:02 Dose: 1 lozenge Capsaicin (Capsaicin 0.025% Cream 60 Gm Tube) 1 appl TOPICAL TID PRN; Protocol PRN Reason: leg pain Last Admin: 12/23/24 14:10 Dose: 1 appl Clonidine HCl (Clonidine Hcl 0.1 Mg Tablet) 0.1 mg PO Q4H PRN; Protocol PRN Reason: moderate anxiety Last Admin: 12/22/24 20:49 Dose: 0.1 mg Clozapine (Clozapine 100 Mg Tablet) 400 mg PO BEDTIME [facility] Last Admin: 12/23/24 20:25 Dose: 400 mg Diazepam (Diazepam 5 Mg Tablet) 5 mg PO TID [facility] Last Admin: 12/24/24 14:13 Dose: 5 mg Diphenhydramine HCl (Diphenhydramine Hcl 25 Mg Capsule) 25 mg PO TID [facility] On Hold: 12/04/24 22:11 Last Admin: 12/04/24 22:16 Dose: 25 mg Divalproex Sodium (Divalproex Sodium Er 500 Mg Tab.Er.24h) 3,000 mg PO BEDTIME [facility] Last Admin: 12/23/24 20:25 Dose: 3,000 mg Docusate Sodium (Docusate Sodium 100 Mg Capsule) 200 mg PO DAILY [facility] Last Admin: 12/24/24 08:35 Dose: 200 mg Docusate Sodium (Docusate Sodium 100 Mg Capsule) 100 mg PO BEDTIME [facility] Last Admin: 12/23/24 20:26 Dose: 100 mg Fenofibrate (Fenofibrate 160 Mg Tablet) 160 mg PO DAILY [facility] Last Admin: 12/24/24 08:35 Dose: 160 mg Fluticasone Propionate (Fluticasone Propionate Nasal 16 Gm [place]) 1 spray NOSTRIL-B BEDTIME [facility] Last Admin: 12/23/24 20:31 Dose: 1 spray Fluticasone Propionate (Fluticasone Propionate Nasal 16 Gm [place]) 1 spray NOSTRIL-B DAILY PRN PRN Reason: Nasal allergy Last Admin: 11/24/24 06:25 Dose: 1 spray Glycopyrrolate (Glycopyrrolate 1 Mg Tablet) 1 mg PO TID [facility] Last Admin: 12/24/24 14:13 Dose: 1 mg Ibuprofen (Ibuprofen 400 Mg Tablet) 400 mg PO Q6H PRN PRN Reason: Pain, Moderate(Pain Scale 4-6) Last Admin: 12/24/24 06:14 Dose: 400 mg Lactulose (Lactulose 20 Gm/30 Ml Solution) 20 gm PO DAILY [facility] On Hold: 12/10/24 08:55 Last Admin: 12/10/24 08:39 Dose: 20 gm Lidocaine (Lidocaine 5 % Ointment 35 Gm) 1 appl TOPICAL Q6H PRN; Protocol PRN Reason: Pain, Mild (Pain Scale 1-3) Lorazepam (Lorazepam 1 Mg Tablet) 1 mg PO Q8H PRN PRN Reason: Anxiety Last Admin: 12/24/24 13:36 Dose: 1 mg Magnesium Hydroxide (Milk Of Magnesia 30 Ml Oral.Susp) 30 ml PO DAILY PRN PRN Reason: Constipation Last Admin: 11/28/24 14:32 Dose: 30 ml Ondansetron HCl (Ondansetron Odt 4 Mg Tab.Rapdis) 4 mg TRANSLINGU Q6H PRN PRN Reason: Nausea and Vomiting Last Admin: 11/28/24 16:14 Dose: 4 mg Polyethylene Glycol (Polyethylene Glycol 3350 17 Gm Powd.Pack) 17 gm PO DAILY [facility] On Hold: 12/04/24 10:12 Last Admin: 12/04/24 10:07 Dose: Not Given Polyethylene Glycol (Polyethylene Glycol 3350 17 Gm Powd.Pack) 17 gm PO DAILY PRN PRN Reason: Constipation Last Admin: 11/28/24 16:16 Dose: 17 gm Risperidone (Risperidone 2 Mg Tablet) 4 mg PO BEDTIME [facility] Last Admin: 12/23/24 20:26 Dose: 4 mg Risperidone (Risperidone 1 Mg Tablet) 1 mg PO DAILY [facility] Last Admin: 12/24/24 08:35 Dose: 1 mg Trazodone HCl (Trazodone Hcl 50 Mg Tablet) 50 mg PO BEDTIME MRX1 PRN PRN Reason: Insomnia Last Admin: 12/22/24 20:48 Dose: 50 mg Trihexyphenidyl HCl (Trihexyphenidyl Hcl 2 Mg Tablet) 1 mg PO TID [facility] Last Admin: 12/24/24 14:12 Dose: 1 mg Allergies Allergies Allergy/AdvReac Type Severity Reaction Status Date / Time benztropine (From COGENTIN) Allergy Unknown UNKNOWN Verified 11/16/24 15:51 propranolol (From INDERAL LA) Allergy Unknown UNKNOWN Verified 11/16/24 15:51 chaste tree Allergy Unknown Verified 11/16/24 15:51 lithium Allergy Unknown Verified 11/16/24 15:51 Assessment & Plan Assessment & Plan (1) Schizoaffective disorder, bipolar type: Status: Acute Code(s): F25.0 - Schizoaffective disorder, bipolar type (2) Bilateral edema of lower extremity: Status: Acute Code(s): R60.0 - Localized edema (3) Autism spectrum disorder: Status: Acute Code(s): F84.0 - Autistic disorder (4) Cellulitis: Status: Resolved Code(s): L03.90 - Cellulitis, unspecified (5) Class 3 obesity: Status: Acute Code(s): E66.813 - Obesity, class 3 Plan Patient is a 34-year-old male with history of schizoaffective disorder bipolar type, Autism Spectrum Disorder, who lives in a halfway, on a [facility] who presents for depression. Patient reports that every 7 weeks (and every 4 months) medications don't work...and I feel depressed.... He says the the depression last anywhere from 2 to 12 days.. And then resolves on it's own without medication changes. Patient reports that he had suicidal ideation a few days ago, no plan but does not now. Patient says sometimes he hears sounds or voices that others do not hear, sometimes laughing noise but not very often and usually just during sleep. Discussed medication regimen and patient said that recently his Depakote was increased because he was having mood swings but it was difficult for him to give details. Discussed medication options and patient agrees to increase Wellbutrin to 450 mg. Formulation/clinical reasoning: Patient reports that episodically he still gets bouts of depression that can last for longer than a week however this seemed to resolve on their own. He is not sure what triggers them. Patient says he is already feeling better now that he is on the unit because of the friendships and interactions he has made since coming to the unit; patient signed a 3 day notice. Discussed medication options and patient agrees to increase Wellbutrin to 450 mg. [employer] wonders if perhaps patient can remain at Wellbutrin 300 mg and just take the extra 150 mg if he starts to feel depressed, sort of as an episodic p.r.n. -patient currently on 2 antipsychotics, including Clozaril and Risperdal; -some TD and pill rolling b/l hand tremor observed; wonder if Risperdal dose could be lowered; consider Aristeo Of note patient had severely high Triacylglycerides of 898. It appears to have been taken while patient fasting however patient is not sure. TAG this high puts patient at risk for pancreatitis. Will redraw labs tomorrow morning to ensure fasting however for now will treat as if this is an accurate lab Hospital course: 11/18: Continue current management and treatment plan. 11/19: Increase Depakote to 500 mg in AM and continue 1,000 mg HS. 11/20: continue current management and treatment plan. 11/21 Patient has become manic over the past several days. Additional Depakote dose was added but patient remains manic, grandiose, labile and intrusive. 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 Patient at 1 point broke down crying about the of his parents, saying that his mother was murdered but then saying she had a brain bleed.. Patient saying that he is from [place] and is going to go back and live his life and [place]... Initially demanding to be discharged today but was able to be redirected. Patient agrees to increased medications including adding Zyprexa -will hold Wellbutrin; seems likely that increasing Wellbutrin was what triggered manic episode -Increasing bedtime Depakote to 1250 mg -patient hardly slept last night and added Zyprexa 10 mg b.i.d.; plan is to discontinue once jacob subsides -reviewed labs and repeat cholesterol shows highly elevated TAG>500 though not as high as the day before 11/22 Patient did sleep some last night with added Zyprexa. Still manic but a little less intense and though still with some grandiose ideations, much less so. Patient still intrusive to others but redirectable. Patient did agree that he was acting manic yesterday but says he is fine now and wants to discharge. He persisted in demanding for discharge today and expressed frustration when told this is not possible but remained in behavioral control. -Great right toe with cellulitis; started on Keflex -Depakote labs ordered for Wednesday *patient is not stable to return to halfway at this time. Will try to get him to retract his 3 day notice but will otherwise file for civil commitment; that said hopefully will not need to go to court and manic episode will resolve 11/23/24: Patient slept for 2 hours, was medication compliant. Denies side effect but observed have some hand tremors. Restless, racing thoughts, intrusive, poor boundaries, need multiple redirections most of the time to respect personal space. He is over friendly, bright, manic but appeared to be less manic compared to yesterday. Can be perseverative on discharge, redirectable and need to remind that he is not leaving today a couple of times. He retracted 3 day notice. He seems to be forgetful. To PRNs with mild to moderate effects. He works on puzzle, and cleaning up his room. He has an reasonable planning for the future, appeared to be grandiose no aggressive behavior, can be irritable at times when things not the way he requested. Continue to monitor for sleeping pattern. 11/24/24: Slept slightly improved compared to the night before, he was able to slept for 4 hours. Was medication compliant. Mood is I am happy. I am calm and relaxed . Reports foot pain, nursing have patient to put lotion on, encouraged to elevated legs when he resting as left food appear to be slightly swollen. He said he would like to go back to his halfway. He also asked if he can call Carla and Max to apologize to them. Read direct patient not calling so many times that may annoying other persons. He admitted that he need to give them a break . Observe want time he was on the phone, appropriate. He is slightly better compared to yesterday, able to sit still, listen to advice/redirection. Even though he has delusional, and grandiose thoughts. Thinking he see a snake in his toilet, seeing his brother coming to see him. Per nursing he had unwitnessed fall when trying to put himself sitting down on the chair but missed it. Slightly better in term of manic behaviors, redirectable and less demanding. Redirected for personal space. Accepted it without any problems. 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 With much effort, Pt remains able to be redirected; examined great rt toe which remains with clear signs of cellulites -Start Ziprasidone -obtained EKG and qtc WNL -Depakote level with much room so will switch depakote to ER so can make at bedtime to help w/ sleep and will increase dose (Depakote IR 1750mg ~ Dep ER 2000) 11/26 Patient remains manic, intrusive, grandiose, tangential. Patient is intrusive to the point where some peers are getting very angry and some feeling provoked. -So far unable to break this manic episode; so far Zyprexa and Geodon have not affected patient and patient is in danger of unintentionally inciting peer aggression. -Thorazine 100 mg did not help either; will try Thorazine 200 mg t.i.d. combined with diazepam 15 mg t.i.d. (10mg did nothing) -if Thorazine does not help, will consider Haldol; also will soon get Depakote level and maybe able to increase other 11/27 Patient remains manic, grandiose, very intrusive with peers and staff, going into patient's rooms, walking up in into rejection himself, getting very close to people making people both angry and scared. Difficult decisions regarding treatment. Discussed case with Dr. Vázquez who agrees with plan For now, will discontinue Thorazine and Valium as marketing underwriter is somewhat concern that all this sedating medication could add on a delirium to his already manic behaviors. Instead, will try Trileptal to help break manic episode; Trileptal has the least side effect risk profile of options so will give it a try (though not very robust evidence) -Considering Tegretol however this will lower the effective dose of both clozapine and Risperdal by 50% or more creating a confusing treatment regimen; also can affect the liver and bone marrow and patient is already on Depakote and Clozaril -also considering Haldol however patient is already on 2 antipsychotics -also considering Tamoxifen used off-label however increases thrombo embolism risk and can raise the effective doses of clozapine and Risperdal ECT remains the gold standard to treat refractory jacob however patient has a guardian and [place] which would need to be amended 11/28 Patient angry, punching the wall, yelling aggressively, peers is getting scared; 1 peer felt threatened and confronted patient pushed him but both were able to be redirected. Made a threatening remark to staff i'm going to break you... Remains floridly manic, hyperverbal, intrusive... He did say yes to ECT however understands guardian needs to weigh in clinical reasoning: -patient's increasing aggression and agitation seems directly correlated with having had Thorazine and diazepam discontinued. Restarted it for the purpose of patient and milieu safety. However it later came to marketing underwriter's attention that Thorazine is not 1 of the antipsychotics listed on his community [place]..? Options that are available are Abilify and Haldol. [employer] lowered Thorazine to 100 mg and allowed for 1 last for tonight, again for milieu and patient safety however will discontinue it and will have to see if the other options are helpful Discussed case with colleague Dr. Meza who continues to agree that using Tegretol would cause too much mixing up of med regimen and that best option is to help patient remain safe while Depakote gets a chance to become therapeutic. Depakote level today 108; will continue with Depakote ER 3000mg and get level tomorrow -talked with Patients guardian Breezy Granados who says he has no objection to patient getting ECT 11/29 Patient for the 1st time since manic episodes started, more subdued today and slept from much of the day. During periods when he was awake, remains manic, intrusive, grandiose and saying bizarre things such as I am hairy potters twin and I need to get back to [facility]. -hopefully this is the sign that patient's manic episode is starting to wane; will continue with Depakote ER 3000 mg and get another level tomorrow (The?therapeutic range for acute jacob is 50?125 mcg/mL) 11/30 Still manic -added Abilfy 10mg daily; would prefer to try Haldol (both on [place]) but since Qtc is elevated will try Abilify first...(as mentioned despite qtc elevation, risk of TdP remains very low and Haldol remains an option. 12/01/24: Patient continued to be manic, intrusive, irritable most of the day, making threats. Making grandiose and paranoid delusional statements I need to go back to [place] to protect Jet Goldy . I am . I am the new president of the country . Patient was naked in the savage asking to talk to social media analyst this morning per staffing reports. Patient remains in the group room at the other hallway. Remain on kitchen restriction, limit access to the other end of the savage. Patient compliant with medications, see PRNs for anxiety and agitation, restless, hyperverbal, hyperactive, irritable, needs a lot redirection,incongruent with mood stating that he is happy and have no anxiety or depression. Poor insight and poor judgment. Denies that he has any order diagnosis or mental health issues except for anger disorder VPA level on 11/30/24: 117.9 (The?therapeutic range for acute jacob is 50?125 mcg/mL) 12/02/24: Patient slept for 9 hours last night. Compliant with meds, less irritable and more pleasant today. Continue to delusional and grandiose. He is calmer compare to yesterday. No naked episode. Discontinue Abilify, start Haldol 5mg TID with goal to control manic/psychotic, racing thoughts/behaviors. Some mild drooling which improving per nursing. Lactulose 20mg BID. (Ammnonia level 60H) Discontinue Abilfy. start Haldol 5mg TID. EKG done- no change compare to previous record. Slightly prolong QTc. 12/03/24: Patient slept for 8 hours, compliant with medications,, appeared to have tremors, and drooling which is not worsening. Patient appeared to be sedated this morning with mild irritable mood, sometimes he hearing from his room loudly, but spend more time in his room today. Slightly less intrusive. Continued to be delusional and grandiose. He has loose stool, Colace and MiraLax was held but continue offer lactulose. We will check ammonia level tomorrow. Observe by lateral lower extremity edema. Hospitalist consult placed. Regarding depakote level: The?therapeutic range for acute jacob is 50?125 mcg/mL, and most patients respond within this range?1https://dailymed.nlm.nih.gov/dailymed/drugInfo.cfm?rezpk=[email or web address]?2https://pubmed.ncbi.nlm.nih.gov/99500070.? of note, regarding EKG with prolonged Qtc: The incidence of torsades de pointes (TdP) from antipsychotic-induced QTc prolongation is?very low, estimated at?0.01?0.1%?(1?10 per 10,000 exposures) in clinical practice?1https://pubmed.ncbi.nlm.nih.gov/19763776?2https://pubmed.ncbi.nlm.nih.gov/71927599. ?[And in the cases where someone did actually get TdP], the case fatality of TdP is also low, with?<10%?of TdP episodes resulting in cardiac , 12/04 Patient is doing better; less manic, less intrusive and resting more.? Still making grandiose delusional statements such as he is running for president with [employer], but certainly symptoms are improving.? He says he is on too much medication and marketing underwriter agrees to review? -Lowered to Diazepam 5mg TID (down from 10mg) -dc Benadryl 25mg TID -has been refusing Lactulose; will recheck Ammonia; if elevated will start LCarnatine 12/05 remains hypomanic and making grandiose statements; continue treatment plan; continues to refuse lactulose. Will get labs 12/06 Still manic/hypomanic; overall more easily redirected and less hyperactive but still can be loud, intrusive and he continues to make grandiose statements saying he is the boss, he owns different things, he was born in different countries....sometimes yelling loudly in frustration...none of which is baseline -marketing underwriter tried reality testing however this frustrated patient who remains with impaired insight to his manic episode increase Haldol to total daily dose of 25mg (up from 15mg) Monitoring Qtc ( QTcB Int : 471 ms on 12/06) Ammonia WNL; will lower Lactulose to 20mg daily (down from BID-has not always taken bedtime dose) 12/07 Patient remains manic/hypomanic; will continue current Haldol dose but may increase soon 12/08 remains manic, intrusive and grandiose; child care group leader came in met with him and find some far from baseline. Patient getting angry or today than previously and yelling angrily in the hallway needing to be frequently redirected as he is causing anxiety in the milieu Will increase Haldol to 10 mg t.i.d. If this does not work, will strongly consider tamoxifen as it will take considerable time to petition the court to add ECT to his community [place] 12/09 Remains manic, intrusive with peers. Yelling very angrily this morning in the shower; pretended the door was locked at 1 point. Sometimes yelling loudly in the hallway and slamming doors. Otherwise comes up to staff and peers, typically making unrelated, grandiose statements. Told marketing underwriter that the police are after him... That we need to find his brother and he could be in [place], [place]... Treatment plan: -patient seems to have regressed some in his progress...(though this is a nuanced observation and the progress alluded to was minimal if even there) For now will continue with Haldol 10 mg t.i.d.. It is difficult to know whether or not Abilify had been helping and that he decompensated a little once it was replaced with Haldol he started decompensating or if nothing has been helpful and his manic symptoms just ebb and flow... -tamoxifen remains an option 12/10 pretty much the same presentation; maybe a little more calm? Difficult to tell. Patient remains intrusive but redirectable. -continue current treatment plan for now; will give a few more days on Haldol to see if patient improves 12/11 Remains manic/hypomanic; maybe easier to redirect but still intrusive; still making bizarre or grandiose statements maybe a little less so. Patient continues to have very angry outburst, slamming doors and hitting the wall, sometimes yelling loudly and aggressively, but again able to be redirected -discussed with staff and since this is that patient may have improved a little bit but not all that much; will continue with Haldol 10 mg t.i.d. but strongly considering switching to Abilify 12/12 Patient reports that he has been feeling more stiff and also that Haldol has been giving him nightmares. [employer] discussed this and discussed changing medications to Abilify. Patient agreed with this plan. Also agreed with artane/Trihexyphenidyl for stiffness, likely due to side effect of medication, since patient is allergic to Cogentin (though not clear what allergy is) -will discontinue Haldol and start Abilify; after 5 days of Haldol 10 mg t.i.d., patient's jacob has not really improved. Haldol is also potentially causing patient nightmares and maybe some increased stiffness and has increased risk for prolonged QTC. Abilify was tried in the past but it was a very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
[2024-12-24 19:48] VITALS: BP 98/56; PULSE 112; TEMP 35.9; O2SAT 97
[2024-12-24 20:27] VITALS: BP 130/73
[2024-12-25] MEDS: ARIPiprazole 30 MG TABLET PO (08:51)
--- NOTE | 2024-12-25 09:09 | HO.PSYCHPN ---
Subjective Subjective Date of Service: 12/25/24 Reason For Visit: Depressive D/O Schizoaffective Subjective Notes: 3 Day Interim History: Met with patient; discussed with team; reviewed chart Patient said he wanted to leave today and it took some explaining that patient's 3 day notice is due on Wednesday; seemed to accept that it will take some time to coordinate discharge. Still making grandiose comments about needing to play in the [employer] and having missed games but patient remains pleasant, friendly and and though intrusive, in overall good behavioral control easily redirected. Patient had earlier complained of having stiff legs however patient was walking around fine, even doing little dance on the unit and said that his legs with no longer felt stiff Patient signed a 3 day notice Mental Status Exam Mental Status Exam Narrative: Pt is alert and oriented; behavior is cooperative, friendly; in overall good behavioral control. Still can be intrusive with peers and staff but easily redirected. patient is not in distress; dressed in casual attire, scruffy facial hair but adequate hygiene and grooming; mood is described as good and affect congruent; eye contact appropriate; Speech is normal rate, volume and prosody and not pressured; no psychomotor agitation/retardation present; thought process is goal directed; Thought content is on discharge; intermittently expressing grandiose, delusional ideas; no SI/HI. Denies AVH and there is no evidence of perceptual disturbance. Patients insight and judgment impaired but much improved. Diagnostics Vital Signs (24Hr): Vital Signs - 24 hr 12/24/24 19:48 12/24/24 20:27 Temperature 96.6 F L Pulse Rate 112 H Blood Pressure 98/56 L 130/73 Pulse Oximetry 97 Oxygen Delivery Method Room Air BMI result Body Mass Index 34.1 Labs 11/28/24 10:37 Medications Medications Current Medications Acetaminophen (Acetaminophen 325 Mg Tablet) 650 mg PO Q6H PRN PRN Reason: Headache/Pain, Scale 1-10 Last Admin: 12/19/24 06:26 Dose: 650 mg Al Hydroxide/Mg Hydroxide (Magnesium Hydrox/Alum Hydrox 30 Ml Oral.Susp) 30 ml PO Q6H PRN PRN Reason: Heartburn/Nausea Last Admin: 11/21/24 01:55 Dose: 30 ml Aripiprazole (Aripiprazole 30 Mg Tablet) 30 mg PO DAILY STEWART Last Admin: 12/25/24 08:51 Dose: 30 mg Benzocaine (Throat Lozenge, Medicated Lozenge) 1 lozenge MUCOUS MEM Q2H PRN PRN Reason: Sore Throat Last Admin: 12/24/24 18:02 Dose: 1 lozenge Capsaicin (Capsaicin 0.025% Cream 60 Gm Tube) 1 appl TOPICAL TID PRN; Protocol PRN Reason: leg pain Last Admin: 12/23/24 14:10 Dose: 1 appl Clonidine HCl (Clonidine Hcl 0.1 Mg Tablet) 0.1 mg PO Q4H PRN; Protocol PRN Reason: moderate anxiety Last Admin: 12/22/24 20:49 Dose: 0.1 mg Clozapine (Clozapine 100 Mg Tablet) 400 mg PO BEDTIME STEWART Last Admin: 12/24/24 20:47 Dose: 400 mg Diazepam (Diazepam 5 Mg Tablet) 5 mg PO TID STEWART Last Admin: 12/25/24 08:51 Dose: 5 mg Diphenhydramine HCl (Diphenhydramine Hcl 25 Mg Capsule) 25 mg PO TID STEWART On Hold: 12/04/24 22:11 Last Admin: 12/04/24 22:16 Dose: 25 mg Divalproex Sodium (Divalproex Sodium Er 500 Mg Tab.Er.24h) 3,000 mg PO BEDTIME STEWART Last Admin: 12/24/24 20:48 Dose: 3,000 mg Docusate Sodium (Docusate Sodium 100 Mg Capsule) 200 mg PO DAILY [facility] Last Admin: 12/25/24 08:51 Dose: 200 mg Docusate Sodium (Docusate Sodium 100 Mg Capsule) 100 mg PO BEDTIME [facility] Last Admin: 12/24/24 20:47 Dose: 100 mg Fenofibrate (Fenofibrate 160 Mg Tablet) 160 mg PO DAILY STEWART Last Admin: 12/25/24 08:51 Dose: 160 mg Fluticasone Propionate (Fluticasone Propionate Nasal 16 Gm [place]) 1 spray NOSTRIL-B BEDTIME [facility] Last Admin: 12/24/24 20:48 Dose: 1 spray Fluticasone Propionate (Fluticasone Propionate Nasal 16 Gm [place]) 1 spray NOSTRIL-B DAILY PRN PRN Reason: Nasal allergy Last Admin: 11/24/24 06:25 Dose: 1 spray Glycopyrrolate (Glycopyrrolate 1 Mg Tablet) 1 mg PO TID STEWART Last Admin: 12/25/24 08:51 Dose: 1 mg Ibuprofen (Ibuprofen 400 Mg Tablet) 400 mg PO Q6H PRN PRN Reason: Pain, Moderate(Pain Scale 4-6) Last Admin: 12/25/24 08:49 Dose: 400 mg Lactulose (Lactulose 20 Gm/30 Ml Solution) 20 gm PO DAILY STEWART On Hold: 12/10/24 08:55 Last Admin: 12/10/24 08:39 Dose: 20 gm Lidocaine (Lidocaine 5 % Ointment 35 Gm) 1 appl TOPICAL Q6H PRN; Protocol PRN Reason: Pain, Mild (Pain Scale 1-3) Lorazepam (Lorazepam 1 Mg Tablet) 1 mg PO Q8H PRN PRN Reason: Anxiety Last Admin: 12/24/24 13:36 Dose: 1 mg Magnesium Hydroxide (Milk Of Magnesia 30 Ml Oral.Susp) 30 ml PO DAILY PRN PRN Reason: Constipation Last Admin: 11/28/24 14:32 Dose: 30 ml Ondansetron HCl (Ondansetron Odt 4 Mg Tab.Rapdis) 4 mg TRANSLINGU Q6H PRN PRN Reason: Nausea and Vomiting Last Admin: 11/28/24 16:14 Dose: 4 mg Polyethylene Glycol (Polyethylene Glycol 3350 17 Gm Powd.Pack) 17 gm PO DAILY STEWART On Hold: 12/04/24 10:12 Last Admin: 12/04/24 10:07 Dose: Not Given Polyethylene Glycol (Polyethylene Glycol 3350 17 Gm Powd.Pack) 17 gm PO DAILY PRN PRN Reason: Constipation Last Admin: 11/28/24 16:16 Dose: 17 gm Risperidone (Risperidone 2 Mg Tablet) 4 mg PO BEDTIME STEWART Last Admin: 12/24/24 20:47 Dose: 4 mg Risperidone (Risperidone 1 Mg Tablet) 1 mg PO DAILY STEWART Last Admin: 12/25/24 08:51 Dose: 1 mg Trazodone HCl (Trazodone Hcl 50 Mg Tablet) 50 mg PO BEDTIME MRX1 PRN PRN Reason: Insomnia Last Admin: 12/22/24 20:48 Dose: 50 mg Trihexyphenidyl HCl (Trihexyphenidyl Hcl 2 Mg Tablet) 1 mg PO TID STEWART Last Admin: 12/25/24 08:49 Dose: 1 mg Allergies Allergies Allergy/AdvReac Type Severity Reaction Status Date / Time benztropine (From [facility]) Allergy Unknown UNKNOWN Verified 11/16/24 15:51 propranolol (From [facility]) Allergy Unknown UNKNOWN Verified 11/16/24 15:51 chaste tree Allergy Unknown Verified 11/16/24 15:51 lithium Allergy Unknown Verified 11/16/24 15:51 Assessment & Plan Assessment & Plan (1) Schizoaffective disorder, bipolar type: Status: Acute Code(s): F25.0 - Schizoaffective disorder, bipolar type (2) Bilateral edema of lower extremity: Status: Acute Code(s): R60.0 - Localized edema (3) Autism spectrum disorder: Status: Acute Code(s): F84.0 - Autistic disorder (4) Cellulitis: Status: Resolved Code(s): L03.90 - Cellulitis, unspecified (5) Class 3 obesity: Status: Acute Code(s): E66.813 - Obesity, class 3 Plan Patient is a 34-year-old male with history of schizoaffective disorder bipolar type, Autism Spectrum Disorder, who lives in a alf, on a [facility] who presents for depression. Patient reports that every 7 weeks (and every 4 months) medications don't work...and I feel depressed.... He says the the depression last anywhere from 2 to 12 days.. And then resolves on it's own without medication changes. Patient reports that he had suicidal ideation a few days ago, no plan but does not now. Patient says sometimes he hears sounds or voices that others do not hear, sometimes laughing noise but not very often and usually just during sleep. Discussed medication regimen and patient said that recently his Depakote was increased because he was having mood swings but it was difficult for him to give details. Discussed medication options and patient agrees to increase Wellbutrin to 450 mg. Formulation/clinical reasoning: Patient reports that episodically he still gets bouts of depression that can last for longer than a week however this seemed to resolve on their own. He is not sure what triggers them. Patient says he is already feeling better now that he is on the unit because of the friendships and interactions he has made since coming to the unit; patient signed a 3 day notice. Discussed medication options and patient agrees to increase Wellbutrin to 450 mg. Crab Fisher wonders if perhaps patient can remain at Wellbutrin 300 mg and just take the extra 150 mg if he starts to feel depressed, sort of as an episodic p.r.n. -patient currently on 2 antipsychotics, including Clozaril and Risperdal; -some TD and pill rolling b/l hand tremor observed; wonder if Risperdal dose could be lowered; consider Aristeo Of note patient had severely high Triacylglycerides of 898. It appears to have been taken while patient fasting however patient is not sure. TAG this high puts patient at risk for pancreatitis. Will redraw labs tomorrow morning to ensure fasting however for now will treat as if this is an accurate lab Hospital course: 11/18: Continue current management and treatment plan. 11/19: Increase Depakote to 500 mg in AM and continue 1,000 mg HS. 11/20: continue current management and treatment plan. 11/21 Patient has become manic over the past several days. Additional Depakote dose was added but patient remains manic, grandiose, labile and intrusive. 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 Patient at 1 point broke down crying about the of his parents, saying that his mother was murdered but then saying she had a brain bleed.. Patient saying that he is from [place] and is going to go back and live his life and [place]... Initially demanding to be discharged today but was able to be redirected. Patient agrees to increased medications including adding Zyprexa -will hold Wellbutrin; seems likely that increasing Wellbutrin was what triggered manic episode -Increasing bedtime Depakote to 1250 mg -patient hardly slept last night and added Zyprexa 10 mg b.i.d.; plan is to discontinue once jacob subsides -reviewed labs and repeat cholesterol shows highly elevated TAG>500 though not as high as the day before 11/22 Patient did sleep some last night with added Zyprexa. Still manic but a little less intense and though still with some grandiose ideations, much less so. Patient still intrusive to others but redirectable. Patient did agree that he was acting manic yesterday but says he is fine now and wants to discharge. He persisted in demanding for discharge today and expressed frustration when told this is not possible but remained in behavioral control. -Great right toe with cellulitis; started on Keflex -Depakote labs ordered for Wednesday *patient is not stable to return to alf at this time. Will try to get him to retract his 3 day notice but will otherwise file for civil commitment; that said hopefully will not need to go to court and manic episode will resolve 11/23/24: Patient slept for 2 hours, was medication compliant. Denies side effect but observed have some hand tremors. Restless, racing thoughts, intrusive, poor boundaries, need multiple redirections most of the time to respect personal space. He is over friendly, bright, manic but appeared to be less manic compared to yesterday. Can be perseverative on discharge, redirectable and need to remind that he is not leaving today a couple of times. He retracted 3 day notice. He seems to be forgetful. To PRNs with mild to moderate effects. He works on puzzle, and cleaning up his room. He has an reasonable planning for the future, appeared to be grandiose no aggressive behavior, can be irritable at times when things not the way he requested. Continue to monitor for sleeping pattern. 11/24/24: Slept slightly improved compared to the night before, he was able to slept for 4 hours. Was medication compliant. Mood is I am happy. I am calm and relaxed . Reports foot pain, nursing have patient to put lotion on, encouraged to elevated legs when he resting as left food appear to be slightly swollen. He said he would like to go back to his alf. He also asked if he can call Carla and Max to apologize to them. Read direct patient not calling so many times that may annoying other persons. He admitted that he need to give them a break . Observe want time he was on the phone, appropriate. He is slightly better compared to yesterday, able to sit still, listen to advice/redirection. Even though he has delusional, and grandiose thoughts. Thinking he see a snake in his toilet, seeing his brother coming to see him. Per nursing he had unwitnessed fall when trying to put himself sitting down on the chair but missed it. Slightly better in term of manic behaviors, redirectable and less demanding. Redirected for personal space. Accepted it without any problems. 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 With much effort, Pt remains able to be redirected; examined great rt toe which remains with clear signs of cellulites -Start Ziprasidone -obtained EKG and qtc WNL -Depakote level with much room so will switch depakote to ER so can make at bedtime to help w/ sleep and will increase dose (Depakote IR 1750mg ~ Dep ER 2000) 11/26 Patient remains manic, intrusive, grandiose, tangential. Patient is intrusive to the point where some peers are getting very angry and some feeling provoked. -So far unable to break this manic episode; so far Zyprexa and Geodon have not affected patient and patient is in danger of unintentionally inciting peer aggression. -Thorazine 100 mg did not help either; will try Thorazine 200 mg t.i.d. combined with diazepam 15 mg t.i.d. (10mg did nothing) -if Thorazine does not help, will consider Haldol; also will soon get Depakote level and maybe able to increase other 11/27 Patient remains manic, grandiose, very intrusive with peers and staff, going into patient's rooms, walking up in into rejection himself, getting very close to people making people both angry and scared. Difficult decisions regarding treatment. Discussed case with Dr. Vázquez who agrees with plan For now, will discontinue Thorazine and Valium as check writer salesperson is somewhat concern that all this sedating medication could add on a delirium to his already manic behaviors. Instead, will try Trileptal to help break manic episode; Trileptal has the least side effect risk profile of options so will give it a try (though not very robust evidence) -Considering Tegretol however this will lower the effective dose of both clozapine and Risperdal by 50% or more creating a confusing treatment regimen; also can affect the liver and bone marrow and patient is already on Depakote and Clozaril -also considering Haldol however patient is already on 2 antipsychotics -also considering Tamoxifen used off-label however increases thrombo embolism risk and can raise the effective doses of clozapine and Risperdal ECT remains the gold standard to treat refractory jacob however patient has a guardian and Vela which would need to be amended 11/28 Patient angry, punching the wall, yelling aggressively, peers is getting scared; 1 peer felt threatened and confronted patient pushed him but both were able to be redirected. Made a threatening remark to staff i'm going to break you... Remains floridly manic, hyperverbal, intrusive... He did say yes to ECT however understands guardian needs to weigh in clinical reasoning: -patient's increasing aggression and agitation seems directly correlated with having had Thorazine and diazepam discontinued. Restarted it for the purpose of patient and milieu safety. However it later came to check writer salesperson's attention that Thorazine is not 1 of the antipsychotics listed on his community Vela..? Options that are available are Abilify and Haldol. Crab Fisher lowered Thorazine to 100 mg and allowed for 1 last for tonight, again for milieu and patient safety however will discontinue it and will have to see if the other options are helpful Discussed case with colleague Dr. Meza who continues to agree that using Tegretol would cause too much mixing up of med regimen and that best option is to help patient remain safe while Depakote gets a chance to become therapeutic. Depakote level today 108; will continue with Depakote ER 3000mg and get level tomorrow -talked with Patients guardian Breezy Granados who says he has no objection to patient getting ECT 11/29 Patient for the 1st time since manic episodes started, more subdued today and slept from much of the day. During periods when he was awake, remains manic, intrusive, grandiose and saying bizarre things such as I am hairy potters twin and I need to get back to [facility]. -hopefully this is the sign that patient's manic episode is starting to wane; will continue with Depakote ER 3000 mg and get another level tomorrow (The?therapeutic range for acute jacob is 50?125 mcg/mL) 11/30 Still manic -added Abilfy 10mg daily; would prefer to try Haldol (both on Vela) but since Qtc is elevated will try Abilify first...(as mentioned despite qtc elevation, risk of TdP remains very low and Haldol remains an option. 12/01/24: Patient continued to be manic, intrusive, irritable most of the day, making threats. Making grandiose and paranoid delusional statements I need to go back to [place] to protect Jet Goldy . I am . I am the new president of the country . Patient was naked in the savage asking to talk to oncology social worker this morning per staffing reports. Patient remains in the group room at the other hallway. Remain on kitchen restriction, limit access to the other end of the savage. Patient compliant with medications, see PRNs for anxiety and agitation, restless, hyperverbal, hyperactive, irritable, needs a lot redirection,incongruent with mood stating that he is happy and have no anxiety or depression. Poor insight and poor judgment. Denies that he has any order diagnosis or mental health issues except for anger disorder VPA level on 11/30/24: 117.9 (The?therapeutic range for acute jacob is 50?125 mcg/mL) 12/02/24: Patient slept for 9 hours last night. Compliant with meds, less irritable and more pleasant today. Continue to delusional and grandiose. He is calmer compare to yesterday. No naked episode. Discontinue Abilify, start Haldol 5mg TID with goal to control manic/psychotic, racing thoughts/behaviors. Some mild drooling which improving per nursing. Lactulose 20mg BID. (Ammnonia level 60H) Discontinue Abilfy. start Haldol 5mg TID. EKG done- no change compare to previous record. Slightly prolong QTc. 12/03/24: Patient slept for 8 hours, compliant with medications,, appeared to have tremors, and drooling which is not worsening. Patient appeared to be sedated this morning with mild irritable mood, sometimes he hearing from his room loudly, but spend more time in his room today. Slightly less intrusive. Continued to be delusional and grandiose. He has loose stool, Colace and MiraLax was held but continue offer lactulose. We will check ammonia level tomorrow. Observe by lateral lower extremity edema. Hospitalist consult placed. Regarding depakote level: The?therapeutic range for acute jacob is 50?125 mcg/mL, and most patients respond within this range?1https://dailymed.nlm.nih.gov/dailymed/drugInfo.cfm?dyzwc=[email or web address]?2https://pubmed.ncbi.nlm.nih.gov/96180292.? of note, regarding EKG with prolonged Qtc: The incidence of torsades de pointes (TdP) from antipsychotic-induced QTc prolongation is?very low, estimated at?0.01?0.1%?(1?10 per 10,000 exposures) in clinical practice?1https://pubmed.ncbi.nlm.nih.gov/04181772?2https://pubmed.ncbi.nlm.nih.gov/39708139. ?[And in the cases where someone did actually get TdP], the case fatality of TdP is also low, with?<10%?of TdP episodes resulting in cardiac , 12/04 Patient is doing better; less manic, less intrusive and resting more.? Still making grandiose delusional statements such as he is running for president with [employer], but certainly symptoms are improving.? He says he is on too much medication and check writer salesperson agrees to review? -Lowered to Diazepam 5mg TID (down from 10mg) -dc Benadryl 25mg TID -has been refusing Lactulose; will recheck Ammonia; if elevated will start LCarnatine 12/05 remains hypomanic and making grandiose statements; continue treatment plan; continues to refuse lactulose. Will get labs 12/06 Still manic/hypomanic; overall more easily redirected and less hyperactive but still can be loud, intrusive and he continues to make grandiose statements saying he is the boss, he owns different things, he was born in different countries....sometimes yelling loudly in frustration...none of which is baseline -check writer salesperson tried reality testing however this frustrated patient who remains with impaired insight to his manic episode increase Haldol to total daily dose of 25mg (up from 15mg) Monitoring Qtc ( QTcB Int : 471 ms on 12/06) Ammonia WNL; will lower Lactulose to 20mg daily (down from BID-has not always taken bedtime dose) 12/07 Patient remains manic/hypomanic; will continue current Haldol dose but may increase soon 12/08 remains manic, intrusive and grandiose; group managing director came in met with him and find some far from baseline. Patient getting angry or today than previously and yelling angrily in the hallway needing to be frequently redirected as he is causing anxiety in the milieu Will increase Haldol to 10 mg t.i.d. If this does not work, will strongly consider tamoxifen as it will take considerable time to petition the court to add ECT to his community [place] 12/09 Remains manic, intrusive with peers. Yelling very angrily this morning in the shower; pretended the door was locked at 1 point. Sometimes yelling loudly in the hallway and slamming doors. Otherwise comes up to staff and peers, typically making unrelated, grandiose statements. Told check writer salesperson that the police are after him... That we need to find his brother and [place]... Treatment plan: -patient seems to have regressed some in his progress...(though this is a nuanced observation and the progress alluded to was minimal if even there) For now will continue with Haldol 10 mg t.i.d.. It is difficult to know whether or not Abilify had been helping and that he decompensated a little once it was replaced with Haldol he started decompensating or if nothing has been helpful and his manic symptoms just ebb and flow... -tamoxifen remains an option 12/10 pretty much the same presentation; maybe a little more calm? Difficult to tell. Patient remains intrusive but redirectable. -continue current treatment plan for now; will give a few more days on Haldol to see if patient improves 12/11 Remains manic/hypomanic; maybe easier to redirect but still intrusive; still making bizarre or grandiose statements maybe a little less so. Patient continues to have very angry outburst, slamming doors and hitting the wall, sometimes yelling loudly and aggressively, but again able to be redirected -discussed with staff and since this is that patient may have improved a little bit but not all that much; will continue with Haldol 10 mg t.i.d. but strongly considering switching to Abilify 12/12 Patient reports that he has been feeling more stiff and also that Haldol has been giving him nightmares. Crab Fisher discussed this and discussed changing medications to Abilify. Patient agreed with this plan. Also agreed with artane/Trihexyphenidyl for stiffness, likely due to side effect of medication, since patient is allergic to Cogentin (though not clear what allergy is) -will discontinue Haldol and start Abilify; after 5 days of Haldol 10 mg t.i.d., patient's jacob has not really improved. Haldol is also potentially causing patient nightmares and maybe some increased stiffness and has increased risk for prolonged QTC. Abilify was tried in the past but it was a very brief trial so will restart now -check writer salesperson filling out paperwork to amend [facility] to include ECT; even if we are gabriel and patient's jacob resolves with medication management, ECT would have likely resolved this weeks ago and patient will benefit from having ECT listed as a potential treatment 12/15 perhaps hypomania is starting to improve; continue current treatment plan; discussed this with patient who initially seemed to accept it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
[2024-12-25] MEDS: Throat Lozenge, Medicated LOZENGE 1 LOZENGE MUCOUS MEM (16:03)
[2024-12-25 20:00] VITALS: BP 119/55; PULSE 110; RESP 18; TEMP 36.3; O2SAT 99
[2024-12-26 03:49] VITALS: BP 146/78
[2024-12-26] MEDS: Throat Lozenge, Medicated LOZENGE 1 LOZENGE MUCOUS MEM (04:08)
[2024-12-26 08:00] VITALS: BP 137/66; PULSE 102; RESP 16; TEMP 36.7; O2SAT 97
[2024-12-26] MEDS: ARIPiprazole 30 MG TABLET PO (09:08)
[2024-12-26 09:14] LABS: Ammonia 46 umol/L (13-55)
--- NOTE | 2024-12-26 10:34 | P.PNPSI_ITS ---
Subjective Subjective Date of Service: 12/26/24 Reason For Visit: Depressive D/O Schizoaffective Interim History: Met with patient; discussed with team Patient remains intermittently making grandiose statements such as playing for professional sports teams, saying he will give people thousands of dollars... But he remains redirectable and was also able to have appropriate conversations. Patient has signed a 3 day notice. Bulk Delivery Driver discussed staying longer on the unit however patient says in a very logical and calm way, I feel I am ready... I will be fine.. He agrees to continue taking his medication including Depakote and accepts that his current dose is appropriate (curriculum writer explained consideration of increasing the dose but patient does not want to)... He also agreed that he will not leave the skilled nursing facility on accompanied or without permission and accepted that he had done that in unsafe way in the past. He asked why curriculum writer thought he should stay longer and considered it but again said that he will be fine and really wants to get home, to see his friends, to play his switch and overall feel more comfortable. Later in the day patient retracted his 3 day however he regretted doing it and did not seem to fully understand the ramifications of the retraction and still wants discharge. On current regimen, patient's ammonia is WNL and Depakote level is therapeutic at 79 (should likey be increased to reach a higher trough level however patient does not want higher dose) Mental Status Exam Mental Status Exam Narrative: Pt is alert and oriented; behavior is cooperative, friendly; in overall good behavioral control. Still can be intrusive with peers and staff but easily redirected. patient is not in distress; dressed in casual attire, scruffy facial hair but adequate hygiene and grooming; mood is described as good and affect congruent; eye contact appropriate; Speech is normal rate, volume and prosody and not pressured; no psychomotor agitation/retardation present; thought process is goal directed but can become tangential; Thought content is on discharge intermittently with grandiose, delusional ideas; no SI/HI. Denies AVH and there is no evidence of perceptual disturbance. Patients insight and judgment impaired but much improved. Diagnostics Vital Signs (24Hr): Vital Signs - 24 hr 12/25/24 20:00 12/26/24 03:49 12/26/24 08:00 Temperature 97.3 F 98.1 F Pulse Rate 110 H 102 H Respiratory Rate 18 16 Blood Pressure 119/55 L 146/78 H 137/66 Pulse Oximetry 99 97 Oxygen Delivery Method Room Air Room Air BMI result Body Mass Index 34.1 Labs 11/28/24 10:37 Labs: Laboratory Results - last 48 hr 12/26/24 09:00 Ammonia 46 Valproic Acid 79.0 Medications Medications Current Medications Acetaminophen (Acetaminophen 325 Mg Tablet) 650 mg PO Q6H PRN PRN Reason: Headache/Pain, Scale 1-10 Last Admin: 12/26/24 03:52 Dose: 650 mg Al Hydroxide/Mg Hydroxide (Magnesium Hydrox/Alum Hydrox 30 Ml Oral.Susp) 30 ml PO Q6H PRN PRN Reason: Heartburn/Nausea Last Admin: 11/21/24 01:55 Dose: 30 ml Aripiprazole (Aripiprazole 30 Mg Tablet) 30 mg PO DAILY STEWART Last Admin: 12/26/24 09:08 Dose: 30 mg Benzocaine (Throat Lozenge, Medicated Lozenge) 1 lozenge MUCOUS MEM Q2H PRN PRN Reason: Sore Throat Last Admin: 12/26/24 04:08 Dose: 1 lozenge Capsaicin (Capsaicin 0.025% Cream 60 Gm Tube) 1 appl TOPICAL TID PRN; Protocol PRN Reason: leg pain Last Admin: 12/25/24 09:24 Dose: 1 appl Clonidine HCl (Clonidine Hcl 0.1 Mg Tablet) 0.1 mg PO Q4H PRN; Protocol PRN Reason: moderate anxiety Last Admin: 12/26/24 03:49 Dose: 0.1 mg Clozapine (Clozapine 100 Mg Tablet) 400 mg PO BEDTIME STEWART Last Admin: 12/25/24 20:55 Dose: 400 mg Diphenhydramine HCl (Diphenhydramine Hcl 25 Mg Capsule) 25 mg PO TID STEWART On Hold: 12/04/24 22:11 Last Admin: 12/04/24 22:16 Dose: 25 mg Divalproex Sodium (Divalproex Sodium Er 500 Mg Tab.Er.24h) 3,000 mg PO BEDTIME STEWART Last Admin: 12/25/24 20:52 Dose: 3,000 mg Docusate Sodium (Docusate Sodium 100 Mg Capsule) 200 mg PO DAILY STEWART Last Admin: 12/26/24 09:05 Dose: 200 mg Docusate Sodium (Docusate Sodium 100 Mg Capsule) 100 mg PO BEDTIME STEWART Last Admin: 12/25/24 20:53 Dose: 100 mg Fenofibrate (Fenofibrate 160 Mg Tablet) 160 mg PO DAILY STEWART Last Admin: 12/26/24 09:08 Dose: 160 mg Fluticasone Propionate (Fluticasone Propionate Nasal 16 Gm Rosebud) 1 spray NOSTRIL-B BEDTIME STEWART Last Admin: 12/25/24 20:50 Dose: 1 spray Fluticasone Propionate (Fluticasone Propionate Nasal 16 Gm Rosebud) 1 spray NOSTRIL-B DAILY PRN PRN Reason: Nasal allergy Last Admin: 11/24/24 06:25 Dose: 1 spray Glycopyrrolate (Glycopyrrolate 1 Mg Tablet) 1 mg PO TID STEWART Last Admin: 12/26/24 09:08 Dose: 1 mg Ibuprofen (Ibuprofen 400 Mg Tablet) 400 mg PO Q6H PRN PRN Reason: Pain, Moderate(Pain Scale 4-6) Last Admin: 12/25/24 08:49 Dose: 400 mg Lactulose (Lactulose 20 Gm/30 Ml Solution) 20 gm PO DAILY STEWART On Hold: 12/10/24 08:55 Last Admin: 12/10/24 08:39 Dose: 20 gm Lidocaine (Lidocaine 5 % Ointment 35 Gm) 1 appl TOPICAL Q6H PRN; Protocol PRN Reason: Pain, Mild (Pain Scale 1-3) Magnesium Hydroxide (Milk Of Magnesia 30 Ml Oral.Susp) 30 ml PO DAILY PRN PRN Reason: Constipation Last Admin: 11/28/24 14:32 Dose: 30 ml Ondansetron HCl (Ondansetron Odt 4 Mg Tab.Rapdis) 4 mg TRANSLINGU Q6H PRN PRN Reason: Nausea and Vomiting Last Admin: 11/28/24 16:14 Dose: 4 mg Polyethylene Glycol (Polyethylene Glycol 3350 17 Gm Powd.Pack) 17 gm PO DAILY STEWART On Hold: 12/04/24 10:12 Last Admin: 12/04/24 10:07 Dose: Not Given Polyethylene Glycol (Polyethylene Glycol 3350 17 Gm Powd.Pack) 17 gm PO DAILY PRN PRN Reason: Constipation Last Admin: 11/28/24 16:16 Dose: 17 gm Risperidone (Risperidone 2 Mg Tablet) 4 mg PO BEDTIME STEWART Last Admin: 12/25/24 20:52 Dose: 4 mg Risperidone (Risperidone 1 Mg Tablet) 1 mg PO DAILY [facility] Last Admin: 12/26/24 09:05 Dose: 1 mg Trazodone HCl (Trazodone Hcl 50 Mg Tablet) 50 mg PO BEDTIME MRX1 PRN PRN Reason: Insomnia Last Admin: 12/22/24 20:48 Dose: 50 mg Trihexyphenidyl HCl (Trihexyphenidyl Hcl 2 Mg Tablet) 1 mg PO TID [facility] Last Admin: 12/26/24 09:06 Dose: 1 mg Allergies Allergies Allergy/AdvReac Type Severity Reaction Status Date / Time benztropine (From COGENTIN) Allergy Unknown UNKNOWN Verified 11/16/24 15:51 propranolol (From INDERAL [place]) Allergy Unknown UNKNOWN Verified 11/16/24 15:51 chaste tree Allergy Unknown Verified 11/16/24 15:51 lithium Allergy Unknown Verified 11/16/24 15:51 Assessment & Plan Assessment & Plan (1) Schizoaffective disorder, bipolar type: Status: Acute Code(s): F25.0 - Schizoaffective disorder, bipolar type (2) Bilateral edema of lower extremity: Status: Acute Code(s): R60.0 - Localized edema (3) Autism spectrum disorder: Status: Acute Code(s): F84.0 - Autistic disorder (4) Cellulitis: Status: Resolved Code(s): L03.90 - Cellulitis, unspecified (5) Class 3 obesity: Status: Acute Code(s): E66.813 - Obesity, class 3 Plan Patient is a 34-year-old male with history of schizoaffective disorder bipolar type, Autism Spectrum Disorder, who lives in a skilled nursing, on a [facility] [place] who presents for depression. Patient reports that every 7 weeks (and every 4 months) medications don't work...and I feel depressed.... He says the the depression last anywhere from 2 to 12 days.. And then resolves on it's own without medication changes. Patient reports that he had suicidal ideation a few days ago, no plan but does not now. Patient says sometimes he hears sounds or voices that others do not hear, sometimes laughing noise but not very often and usually just during sleep. Discussed medication regimen and patient said that recently his Depakote was increased because he was having mood swings but it was difficult for him to give details. Discussed medication options and patient agrees to increase Wellbutrin to 450 mg. Formulation/clinical reasoning: Patient reports that episodically he still gets bouts of depression that can last for longer than a week however this seemed to resolve on their own. He is not sure what triggers them. Patient says he is already feeling better now that he is on the unit because of the friendships and interactions he has made since coming to the unit; patient signed a 3 day notice. Discussed medication options and patient agrees to increase Wellbutrin to 450 mg. Bulk Delivery Driver wonders if perhaps patient can remain at Wellbutrin 300 mg and just take the extra 150 mg if he starts to feel depressed, sort of as an episodic p.r.n. -patient currently on 2 antipsychotics, including Clozaril and Risperdal; -some TD and pill rolling b/l hand tremor observed; wonder if Risperdal dose could be lowered; consider Ingrezza Of note patient had severely high Triacylglycerides of 898. It appears to have been taken while patient fasting however patient is not sure. TAG this high puts patient at risk for pancreatitis. Will redraw labs tomorrow morning to ensure fasting however for now will treat as if this is an accurate lab Hospital course: 11/18: Continue current management and treatment plan. 11/19: Increase Depakote to 500 mg in AM and continue 1,000 mg HS. 11/20: continue current management and treatment plan. 11/21 Patient has become manic over the past several days. Additional Depakote dose was added but patient remains manic, grandiose, labile and intrusive. 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 Patient at 1 point broke down crying about the of his parents, saying that his mother was murdered but then saying she had a brain bleed.. Patient saying that he is from [place] and is going to go back and live his life and [place]... Initially demanding to be discharged today but was able to be redirected. Patient agrees to increased medications including adding Zyprexa -will hold Wellbutrin; seems likely that increasing Wellbutrin was what triggered manic episode -Increasing bedtime Depakote to 1250 mg -patient hardly slept last night and added Zyprexa 10 mg b.i.d.; plan is to discontinue once jacob subsides -reviewed labs and repeat cholesterol shows highly elevated TAG>500 though not as high as the day before 11/22 Patient did sleep some last night with added Zyprexa. Still manic but a little less intense and though still with some grandiose ideations, much less so. Patient still intrusive to others but redirectable. Patient did agree that he was acting manic yesterday but says he is fine now and wants to discharge. He persisted in demanding for discharge today and expressed frustration when told this is not possible but remained in behavioral control. -Great right toe with cellulitis; started on Keflex -Depakote labs ordered for Wednesday *patient is not stable to return to skilled nursing at this time. Will try to get him to retract his 3 day notice but will otherwise file for civil commitment; that said hopefully will not need to go to court and manic episode will resolve 11/23/24: Patient slept for 2 hours, was medication compliant. Denies side effect but observed have some hand tremors. Restless, racing thoughts, intrusive, poor boundaries, need multiple redirections most of the time to respect personal space. He is over friendly, bright, manic but appeared to be less manic compared to yesterday. Can be perseverative on discharge, redirectable and need to remind that he is not leaving today a couple of times. He retracted 3 day notice. He seems to be forgetful. To PRNs with mild to moderate effects. He works on puzzle, and cleaning up his room. He has an reasonable planning for the future, appeared to be grandiose no aggressive behavior, can be irritable at times when things not the way he requested. Continue to monitor for sleeping pattern. 11/24/24: Slept slightly improved compared to the night before, he was able to slept for 4 hours. Was medication compliant. Mood is I am happy. I am calm and relaxed . Reports foot pain, nursing have patient to put lotion on, encouraged to elevated legs when he resting as left food appear to be slightly swollen. He said he would like to go back to his skilled nursing. He also asked if he can call Carla and Max to apologize to them. Read direct patient not calling so many times that may annoying other persons. He admitted that he need to give them a break . Observe want time he was on the phone, appropriate. He is slightly better compared to yesterday, able to sit still, listen to advice/redirection. Even though he has delusional, and grandiose thoughts. Thinking he see a snake in his toilet, seeing his brother coming to see him. Per nursing he had unwitnessed fall when trying to put himself sitting down on the chair but missed it. Slightly better in term of manic behaviors, redirectable and less demanding. Redirected for personal space. Accepted it without any problems. 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 With much effort, Pt remains able to be redirected; examined great rt toe which remains with clear signs of cellulites -Start Ziprasidone -obtained EKG and qtc WNL -Depakote level with much room so will switch depakote to ER so can make at bedtime to help w/ sleep and will increase dose (Depakote IR 1750mg ~ Dep ER 2000) 11/26 Patient remains manic, intrusive, grandiose, tangential. Patient is intrusive to the point where some peers are getting very angry and some feeling provoked. -So far unable to break this manic episode; so far Zyprexa and Geodon have not affected patient and patient is in danger of unintentionally inciting peer aggression. -Thorazine 100 mg did not help either; will try Thorazine 200 mg t.i.d. combined with diazepam 15 mg t.i.d. (10mg did nothing) -if Thorazine does not help, will consider Haldol; also will soon get Depakote level and maybe able to increase other 11/27 Patient remains manic, grandiose, very intrusive with peers and staff, going into patient's rooms, walking up in into rejection himself, getting very close to people making people both angry and scared. Difficult decisions regarding treatment. Discussed case with Dr. Vázquez who agrees with plan For now, will discontinue Thorazine and Valium as curriculum writer is somewhat concern that all this sedating medication could add on a delirium to his already manic behaviors. Instead, will try Trileptal to help break manic episode; Trileptal has the least side effect risk profile of options so will give it a try (though not very robust evidence) -Considering Tegretol however this will lower the effective dose of both clozapine and Risperdal by 50% or more creating a confusing treatment regimen; also can affect the liver and bone marrow and patient is already on Depakote and Clozaril -also considering Haldol however patient is already on 2 antipsychotics -also considering Tamoxifen used off-label however increases thrombo embolism risk and can raise the effective doses of clozapine and Risperdal ECT remains the gold standard to treat refractory jacob however patient has a guardian and Vela which would need to be amended 11/28 Patient angry, punching the wall, yelling aggressively, peers is getting scared; 1 peer felt threatened and confronted patient pushed him but both were able to be redirected. Made a threatening remark to staff i'm going to break you... Remains floridly manic, hyperverbal, intrusive... He did say yes to ECT however understands guardian needs to weigh in clinical reasoning: -patient's increasing aggression and agitation seems directly correlated with having had Thorazine and diazepam discontinued. Restarted it for the purpose of patient and milieu safety. However it later came to curriculum writer's attention that Thorazine is not 1 of the antipsychotics listed on his community Vela..? Options that are available are Abilify and Haldol. Bulk Delivery Driver lowered Thorazine to 100 mg and allowed for 1 last for tonight, again for milieu and patient safety however will discontinue it and will have to see if the other options are helpful Discussed case with colleague Dr. Meza who continues to agree that using Tegretol would cause too much mixing up of med regimen and that best option is to help patient remain safe while Depakote gets a chance to become therapeutic. Depakote level today 108; will continue with Depakote ER 3000mg and get level tomorrow -talked with Patients guardian Breezy Granados who says he has no objection to patient getting ECT 11/29 Patient for the 1st time since manic episodes started, more subdued today and slept from much of the day. During periods when he was awake, remains manic, intrusive, grandiose and saying bizarre things such as I am hairy potters twin and I need to get back to [facility]. -hopefully this is the sign that patient's manic episode is starting to wane; will continue with Depakote ER 3000 mg and get another level tomorrow (The?therapeutic range for acute jacob is 50?125 mcg/mL) 11/30 Still manic -added Abilfy 10mg daily; would prefer to try Haldol (both on Vela) but since Qtc is elevated will try Abilify first...(as mentioned despite qtc elevation, risk of TdP remains very low and Haldol remains an option. 12/01/24: Patient continued to be manic, intrusive, irritable most of the day, making threats. Making grandiose and paranoid delusional statements I need to go back to [place] to protect Jet Goldy . I am . I am the new president of the country . Patient was naked in the savage asking to talk to social services designee this morning per staffing reports. Patient remains in the group room at the other hallway. Remain on kitchen restriction, limit access to the other end of the savage. Patient compliant with medications, see PRNs for anxiety and agitation, restless, hyperverbal, hyperactive, irritable, needs a lot redirection,incongruent with mood stating that he is happy and have no anxiety or depression. Poor insight and poor judgment. Denies that he has any order diagnosis or mental health issues except for anger disorder VPA level on 11/30/24: 117.9 (The?therapeutic range for acute jacob is 50?125 mcg/mL) 12/02/24: Patient slept for 9 hours last night. Compliant with meds, less irritable and more pleasant today. Continue to delusional and grandiose. He is calmer compare to yesterday. No naked episode. Discontinue Abilify, start Haldol 5mg TID with goal to control manic/psychotic, racing thoughts/behaviors. Some mild drooling which improving per nursing. Lactulose 20mg BID. (Ammnonia level 60H) Discontinue Abilfy. start Haldol 5mg TID. EKG done- no change compare to previous record. Slightly prolong QTc. 12/03/24: Patient slept for 8 hours, compliant with medications,, appeared to have tremors, and drooling which is not worsening. Patient appeared to be sedated this morning with mild irritable mood, sometimes he hearing from his room loudly, but spend more time in his room today. Slightly less intrusive. Continued to be delusional and grandiose. He has loose stool, Colace and MiraLax was held but continue offer lactulose. We will check ammonia level tomorrow. Observe by lateral lower extremity edema. Hospitalist consult placed. Regarding depakote level: The?therapeutic range for acute jacob is 50?125 mcg/mL, and most patients respond within this range?1 https://dailymed.nlm.nih.gov/dailymed/drugInfo.cfm?akduw=1py186mw-cor6-6070-0gx7 -207s346kfiio ?2 https://pubmed.ncbi.nlm.nih.gov/61173917 .? of note, regarding EKG with prolonged Qtc: The incidence of torsades de pointes (TdP) from antipsychotic-induced QTc prolongation is?very low, estimated at?0.01?0.1%?(1?10 per 10,000 exposures) in clinical practice?1 https://pubmed.ncbi.nlm.nih.gov/10713206 ?2 https://pubmed.ncbi.nlm.nih.gov/69808326 . ?[And in the cases where someone did actually get TdP], the case fatality of TdP is also low, with?<10%?of TdP episodes resulting in cardiac , 12/04 Patient is doing better; less manic, less intrusive and resting more.? Still making grandiose delusional statements such as he is running for president with [employer], but certainly symptoms are improving.? He says he is on too much medication and curriculum writer agrees to review? -Lowered to Diazepam 5mg TID (down from 10mg) -dc Benadryl 25mg TID -has been refusing Lactulose; will recheck Ammonia; if elevated will start LCarnatine 12/05 remains hypomanic and making grandiose statements; continue treatment plan; continues to refuse lactulose. Will get labs 12/06 Still manic/hypomanic; overall more easily redirected and less hyperactive but still can be loud, intrusive and he continues to make grandiose statements saying he is the boss, he owns different things, he was born in different countries....sometimes yelling loudly in frustration...none of which is baseline -curriculum writer tried reality testing however this frustrated patient who remains with impaired insight to his manic episode increase Haldol to total daily dose of 25mg (up from 15mg) Monitoring Qtc ( QTcB Int : 471 ms on 12/06) Ammonia WNL; will lower Lactulose to 20mg daily (down from BID-has not always taken bedtime dose) 12/07 Patient remains manic/hypomanic; will continue current Haldol dose but may increase soon 12/08 remains manic, intrusive and grandiose; group care worker came in met with him and find some far from baseline. Patient getting angry or today than previously and yelling angrily in the hallway needing to be frequently redirected as he is causing anxiety in the milieu Will increase Haldol to 10 mg t.i.d. If this does not work, will strongly consider tamoxifen as it will take considerable time to petition the court to add ECT to his community Dane 12/09 Remains manic, intrusive with peers. Yelling very angrily this morning in the shower; pretended the door was locked at 1 point. Sometimes yelling loudly in the hallway and slamming doors. Otherwise comes up to staff and peers, typically making unrelated, grandiose statements. Told curriculum writer that the police are after him... That we need to find his brother and he could be in [place], [place]... Treatment plan: -patient seems to have regressed some in his progress...(though this is a nuanced observation and the progress alluded to was minimal if even there) For now will continue with Haldol 10 mg t.i.d.. It is difficult to know whether or not Abilify had been helping and that he decompensated a little once it was replaced with Haldol he started decompensating or if nothing has been helpful and his manic symptoms just ebb and flow... -tamoxifen remains an option 12/10 pretty much the same presentation; maybe a little more calm? Difficult to tell. Patient remains intrusive but redirectable. -continue current treatment plan for now; will give a few more days on Haldol to see if patient improves 12/11 Remains manic/hypomanic; maybe easier to redirect but still intrusive; still making bizarre or grandiose statements maybe a little less so. Patient continues to have very angry outburst, slamming doors and hitting the wall, sometimes yelling loudly and aggressively, but again able to be redirected -discussed with staff and since this is that patient may have improved a little bit but not all that much; will continue with Haldol 10 mg t.i.d. but strongly considering switching to Abilify 12/12 Patient reports that he has been feeling more stiff and also that Haldol has been giving him nightmares. Bulk Delivery Driver discussed this and discussed changing medications to Abilify. Patient agreed with this plan. Also agreed with artane/Trihexyphenidyl for stiffness, likely due to side effect of medication, since patient is allergic to Cogentin (though not clear what allergy is) -will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
[2024-12-26 20:00] VITALS: BP 128/58; PULSE 108; RESP 16; TEMP 36.7; O2SAT 97
[2024-12-27 09:01] VITALS: BP 139/83; PULSE 108; RESP 20; TEMP 36.3; O2SAT 98
[2024-12-27] MEDS: ARIPiprazole 30 MG TABLET PO (09:04)
--- NOTE | 2024-12-27 11:43 | P.PNPSI_ITS ---
Subjective Subjective Date of Service: 12/27/24 Reason For Visit: Depressive D/O Schizoaffective Interim History: Met with patient; discussed with team Same presentation; patient initially irritated with repairer typewriter that he is not going home today but otherwise interacting pleasantly with peers, intermittently intrusive but remains redirectable Mental Status Exam Mental Status Exam Narrative: Pt is alert and oriented; behavior is cooperative, friendly; in overall good behavioral control. Still can be intrusive with peers and staff but easily redirected. patient is not in distress; dressed in casual attire, scruffy facial hair but adequate hygiene and grooming; mood is described as good and affect congruent; eye contact appropriate; Speech is normal rate, volume and prosody and not pressured; no psychomotor agitation/retardation present; thought process is goal directed but can become tangential; Thought content is on discharge intermittently with grandiose, delusional ideas; no SI/HI. Denies AVH and there is no evidence of perceptual disturbance. Patients insight and judgment impaired but much improved. Diagnostics Vital Signs (24Hr): Vital Signs - 24 hr 12/26/24 20:00 12/27/24 09:01 Temperature 98.1 F 97.4 F Pulse Rate 108 H 108 H Respiratory Rate 16 20 Blood Pressure 128/58 L 139/83 Pulse Oximetry 97 98 Oxygen Delivery Method Room Air Room Air BMI result Body Mass Index 34.1 Labs 11/28/24 10:37 Labs: Laboratory Results - last 48 hr 12/26/24 09:00 Ammonia 46 Valproic Acid 79.0 Medications Medications Current Medications Acetaminophen (Acetaminophen 325 Mg Tablet) 650 mg PO Q6H PRN PRN Reason: Headache/Pain, Scale 1-10 Last Admin: 12/26/24 21:12 Dose: 650 mg Al Hydroxide/Mg Hydroxide (Magnesium Hydrox/Alum Hydrox 30 Ml Oral.Susp) 30 ml PO Q6H PRN PRN Reason: Heartburn/Nausea Last Admin: 11/21/24 01:55 Dose: 30 ml Aripiprazole (Aripiprazole 30 Mg Tablet) 30 mg PO DAILY STEWART Last Admin: 12/27/24 09:04 Dose: 30 mg Benzocaine (Throat Lozenge, Medicated Lozenge) 1 lozenge MUCOUS MEM Q2H PRN PRN Reason: Sore Throat Last Admin: 12/26/24 04:08 Dose: 1 lozenge Capsaicin (Capsaicin 0.025% Cream 60 Gm Tube) 1 appl TOPICAL TID PRN; Protocol PRN Reason: leg pain Last Admin: 12/25/24 09:24 Dose: 1 appl Clonidine HCl (Clonidine Hcl 0.1 Mg Tablet) 0.1 mg PO Q4H PRN; Protocol PRN Reason: moderate anxiety Last Admin: 12/26/24 03:49 Dose: 0.1 mg Clozapine (Clozapine 100 Mg Tablet) 400 mg PO BEDTIME STEWART Last Admin: 12/26/24 21:08 Dose: 400 mg Diphenhydramine HCl (Diphenhydramine Hcl 25 Mg Capsule) 25 mg PO TID STEWART On Hold: 12/04/24 22:11 Last Admin: 12/04/24 22:16 Dose: 25 mg Divalproex Sodium (Divalproex Sodium Er 500 Mg Tab.Er.24h) 3,000 mg PO BEDTIME STEWART Last Admin: 12/26/24 21:08 Dose: 3,000 mg Docusate Sodium (Docusate Sodium 100 Mg Capsule) 200 mg PO DAILY STEWART Last Admin: 12/27/24 09:05 Dose: 200 mg Docusate Sodium (Docusate Sodium 100 Mg Capsule) 100 mg PO BEDTIME STEWART Last Admin: 12/26/24 21:09 Dose: Not Given Fenofibrate (Fenofibrate 160 Mg Tablet) 160 mg PO DAILY STEWART Last Admin: 12/27/24 09:07 Dose: 160 mg Fluticasone Propionate (Fluticasone Propionate Nasal 16 Gm Dorr) 1 spray NOSTRIL-B BEDTIME STEWART Last Admin: 12/26/24 21:47 Dose: Not Given Fluticasone Propionate (Fluticasone Propionate Nasal 16 Gm Dorr) 1 spray NOSTRIL-B DAILY PRN PRN Reason: Nasal allergy Last Admin: 11/24/24 06:25 Dose: 1 spray Glycopyrrolate (Glycopyrrolate 1 Mg Tablet) 1 mg PO TID STEWART Last Admin: 12/27/24 09:06 Dose: 1 mg Ibuprofen (Ibuprofen 400 Mg Tablet) 400 mg PO Q6H PRN PRN Reason: Pain, Moderate(Pain Scale 4-6) Last Admin: 12/25/24 08:49 Dose: 400 mg Lidocaine (Lidocaine 5 % Ointment 35 Gm) 1 appl TOPICAL Q6H PRN; Protocol PRN Reason: Pain, Mild (Pain Scale 1-3) Magnesium Hydroxide (Milk Of Magnesia 30 Ml Oral.Susp) 30 ml PO DAILY PRN PRN Reason: Constipation Last Admin: 11/28/24 14:32 Dose: 30 ml Ondansetron HCl (Ondansetron Odt 4 Mg Tab.Rapdis) 4 mg TRANSLINGU Q6H PRN PRN Reason: Nausea and Vomiting Last Admin: 11/28/24 16:14 Dose: 4 mg Polyethylene Glycol (Polyethylene Glycol 3350 17 Gm Powd.Pack) 17 gm PO DAILY STEWART On Hold: 12/04/24 10:12 Last Admin: 12/04/24 10:07 Dose: Not Given Polyethylene Glycol (Polyethylene Glycol 3350 17 Gm Powd.Pack) 17 gm PO DAILY PRN PRN Reason: Constipation Last Admin: 11/28/24 16:16 Dose: 17 gm Risperidone (Risperidone 2 Mg Tablet) 4 mg PO BEDTIME STEWART Last Admin: 12/26/24 21:08 Dose: 4 mg Risperidone (Risperidone 1 Mg Tablet) 1 mg PO DAILY STEWART Last Admin: 12/27/24 09:03 Dose: 1 mg Trazodone HCl (Trazodone Hcl 50 Mg Tablet) 50 mg PO BEDTIME MRX1 PRN PRN Reason: Insomnia Last Admin: 12/22/24 20:48 Dose: 50 mg Trihexyphenidyl HCl (Trihexyphenidyl Hcl 2 Mg Tablet) 1 mg PO TID STEWART Last Admin: 12/27/24 09:04 Dose: 1 mg Allergies Allergies Allergy/AdvReac Type Severity Reaction Status Date / Time benztropine (From COGENTIN) Allergy Unknown UNKNOWN Verified 11/16/24 15:51 propranolol (From INDERAL LA) Allergy Unknown UNKNOWN Verified 11/16/24 15:51 chaste tree Allergy Unknown Verified 11/16/24 15:51 lithium Allergy Unknown Verified 11/16/24 15:51 Assessment & Plan Assessment & Plan (1) Schizoaffective disorder, bipolar type: Status: Acute Code(s): F25.0 - Schizoaffective disorder, bipolar type (2) Bilateral edema of lower extremity: Status: Acute Code(s): R60.0 - Localized edema (3) Autism spectrum disorder: Status: Acute Code(s): F84.0 - Autistic disorder (4) Cellulitis: Status: Resolved Code(s): L03.90 - Cellulitis, unspecified (5) Class 3 obesity: Status: Acute Code(s): E66.813 - Obesity, class 3 Plan Patient is a 34-year-old male with history of schizoaffective disorder bipolar type, Autism Spectrum Disorder, who lives in a penitentiary, on a community Vela who presents for depression. Patient reports that every 7 weeks (and every 4 months) medications don't work...and I feel depressed.... He says the the depression last anywhere from 2 to 12 days.. And then resolves on it's own without medication changes. Patient reports that he had suicidal ideation a few days ago, no plan but does not now. Patient says sometimes he hears sounds or voices that others do not hear, sometimes laughing noise but not very often and usually just during sleep. Discussed medication regimen and patient said that recently his Depakote was increased because he was having mood swings but it was difficult for him to give details. Discussed medication options and patient agrees to increase Wellbutrin to 450 mg. Formulation/clinical reasoning: Patient reports that episodically he still gets bouts of depression that can last for longer than a week however this seemed to resolve on their own. He is not sure what triggers them. Patient says he is already feeling better now that he is on the unit because of the friendships and interactions he has made since coming to the unit; patient signed a 3 day notice. Discussed medication options and patient agrees to increase Wellbutrin to 450 mg. Foot And Ankle Surgeon wonders if perhaps patient can remain at Wellbutrin 300 mg and just take the extra 150 mg if he starts to feel depressed, sort of as an episodic p.r.n. -patient currently on 2 antipsychotics, including Clozaril and Risperdal; -some TD and pill rolling b/l hand tremor observed; wonder if Risperdal dose could be lowered; consider Ingrezza Of note patient had severely high Triacylglycerides of 898. It appears to have been taken while patient fasting however patient is not sure. TAG this high puts patient at risk for pancreatitis. Will redraw labs tomorrow morning to ensure fasting however for now will treat as if this is an accurate lab Hospital course: 11/18: Continue current management and treatment plan. 11/19: Increase Depakote to 500 mg in AM and continue 1,000 mg HS. 11/20: continue current management and treatment plan. 11/21 Patient has become manic over the past several days. Additional Depakote dose was added but patient remains manic, grandiose, labile and intrusive. 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 Patient at 1 point broke down crying about the of his parents, saying that his mother was murdered but then saying she had a brain bleed.. Patient saying that he is from [place] and is going to go back and live his life and [place]... Initially demanding to be discharged today but was able to be redirected. Patient agrees to increased medications including adding Zyprexa -will hold Wellbutrin; seems likely that increasing Wellbutrin was what triggered manic episode -Increasing bedtime Depakote to 1250 mg -patient hardly slept last night and added Zyprexa 10 mg b.i.d.; plan is to discontinue once jacob subsides -reviewed labs and repeat cholesterol shows highly elevated TAG>500 though not as high as the day before 11/22 Patient did sleep some last night with added Zyprexa. Still manic but a little less intense and though still with some grandiose ideations, much less so. Patient still intrusive to others but redirectable. Patient did agree that he was acting manic yesterday but says he is fine now and wants to discharge. He persisted in demanding for discharge today and expressed frustration when told this is not possible but remained in behavioral control. -Great right toe with cellulitis; started on Keflex -Depakote labs ordered for Wednesday *patient is not stable to return to penitentiary at this time. Will try to get him to retract his 3 day notice but will otherwise file for civil commitment; that said hopefully will not need to go to court and manic episode will resolve 11/23/24: Patient slept for 2 hours, was medication compliant. Denies side effect but observed have some hand tremors. Restless, racing thoughts, intrusive, poor boundaries, need multiple redirections most of the time to respect personal space. He is over friendly, bright, manic but appeared to be less manic compared to yesterday. Can be perseverative on discharge, redirectable and need to remind that he is not leaving today a couple of times. He retracted 3 day notice. He seems to be forgetful. To PRNs with mild to moderate effects. He works on puzzle, and cleaning up his room. He has an reasonable planning for the future, appeared to be grandiose no aggressive behavior, can be irritable at times when things not the way he requested. Continue to monitor for sleeping pattern. 11/24/24: Slept slightly improved compared to the night before, he was able to slept for 4 hours. Was medication compliant. Mood is I am happy. I am calm and relaxed . Reports foot pain, nursing have patient to put lotion on, encouraged to elevated legs when he resting as left food appear to be slightly swollen. He said he would like to go back to his penitentiary. He also asked if he can call Carla and Max to apologize to them. Read direct patient not calling so many times that may annoying other persons. He admitted that he need to give them a break . Observe want time he was on the phone, appropriate. He is slightly better compared to yesterday, able to sit still, listen to advice/redirection. Even though he has delusional, and grandiose thoughts. Thinking he see a snake in his toilet, seeing his brother coming to see him. Per nursing he had unwitnessed fall when trying to put himself sitting down on the chair but missed it. Slightly better in term of manic behaviors, redirectable and less demanding. Redirected for personal space. Accepted it without any problems. 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 With much effort, Pt remains able to be redirected; examined great rt toe which remains with clear signs of cellulites -Start Ziprasidone -obtained EKG and qtc WNL -Depakote level with much room so will switch depakote to ER so can make at bedtime to help w/ sleep and will increase dose (Depakote IR 1750mg ~ Dep ER 2000) 11/26 Patient remains manic, intrusive, grandiose, tangential. Patient is intrusive to the point where some peers are getting very angry and some feeling provoked. -So far unable to break this manic episode; so far Zyprexa and Geodon have not affected patient and patient is in danger of unintentionally inciting peer aggression. -Thorazine 100 mg did not help either; will try Thorazine 200 mg t.i.d. combined with diazepam 15 mg t.i.d. (10mg did nothing) -if Thorazine does not help, will consider Haldol; also will soon get Depakote level and maybe able to increase other 11/27 Patient remains manic, grandiose, very intrusive with peers and staff, going into patient's rooms, walking up in into rejection himself, getting very close to people making people both angry and scared. Difficult decisions regarding treatment. Discussed case with Dr. Vázquez who agrees with plan For now, will discontinue Thorazine and Valium as repairer typewriter is somewhat concern that all this sedating medication could add on a delirium to his already manic behaviors. Instead, will try Trileptal to help break manic episode; Trileptal has the least side effect risk profile of options so will give it a try (though not very robust evidence) -Considering Tegretol however this will lower the effective dose of both clozapine and Risperdal by 50% or more creating a confusing treatment regimen; also can affect the liver and bone marrow and patient is already on Depakote and Clozaril -also considering Haldol however patient is already on 2 antipsychotics -also considering Tamoxifen used off-label however increases thrombo embolism risk and can raise the effective doses of clozapine and Risperdal ECT remains the gold standard to treat refractory jacob however patient has a guardian and Vela which would need to be amended 11/28 Patient angry, punching the wall, yelling aggressively, peers is getting scared; 1 peer felt threatened and confronted patient pushed him but both were able to be redirected. Made a threatening remark to staff i'm going to break you... Remains floridly manic, hyperverbal, intrusive... He did say yes to ECT however understands guardian needs to weigh in clinical reasoning: -patient's increasing aggression and agitation seems directly correlated with having had Thorazine and diazepam discontinued. Restarted it for the purpose of patient and milieu safety. However it later came to repairer typewriter's attention that Thorazine is not 1 of the antipsychotics listed on his community Vela..? Options that are available are Abilify and Haldol. Foot And Ankle Surgeon lowered Thorazine to 100 mg and allowed for 1 last for tonight, again for milieu and patient safety however will discontinue it and will have to see if the other options are helpful Discussed case with colleague Dr. Meza who continues to agree that using Tegretol would cause too much mixing up of med regimen and that best option is to help patient remain safe while Depakote gets a chance to become therapeutic. Depakote level today 108; will continue with Depakote ER 3000mg and get level tomorrow -talked with Patients guardian Breezy Granados who says he has no objection to patient getting ECT 11/29 Patient for the 1st time since manic episodes started, more subdued today and slept from much of the day. During periods when he was awake, remains manic, intrusive, grandiose and saying bizarre things such as I am hairy potters twin and I need to get back to [facility]. -hopefully this is the sign that patient's manic episode is starting to wane; will continue with Depakote ER 3000 mg and get another level tomorrow (The?therapeutic range for acute jacob is 50?125 mcg/mL) 11/30 Still manic -added Abilfy 10mg daily; would prefer to try Haldol (both on Vela) but since Qtc is elevated will try Abilify first...(as mentioned despite qtc elevation, risk of TdP remains very low and Haldol remains an option. 12/01/24: Patient continued to be manic, intrusive, irritable most of the day, making threats. Making grandiose and paranoid delusional statements I need to go back to [place] to protect Jet Goldy . I am . I am the new president of the country . Patient was naked in the savage asking to talk to outreach and education social worker this morning per staffing reports. Patient remains in the group room at the other hallway. Remain on kitchen restriction, limit access to the other end of the savage. Patient compliant with medications, see PRNs for anxiety and agitation, restless, hyperverbal, hyperactive, irritable, needs a lot redirection,incongruent with mood stating that he is happy and have no anxiety or depression. Poor insight and poor judgment. Denies that he has any order diagnosis or mental health issues except for anger disorder VPA level on 11/30/24: 117.9 (The?therapeutic range for acute jacob is 50?125 mcg/mL) 12/02/24: Patient slept for 9 hours last night. Compliant with meds, less irritable and more pleasant today. Continue to delusional and grandiose. He is calmer compare to yesterday. No naked episode. Discontinue Abilify, start Haldol 5mg TID with goal to control manic/psychotic, racing thoughts/behaviors. Some mild drooling which improving per nursing. Lactulose 20mg BID. (Ammnonia level 60H) Discontinue Abilfy. start Haldol 5mg TID. EKG done- no change compare to previous record. Slightly prolong QTc. 12/03/24: Patient slept for 8 hours, compliant with medications,, appeared to have tremors, and drooling which is not worsening. Patient appeared to be sedated this morning with mild irritable mood, sometimes he hearing from his room loudly, but spend more time in his room today. Slightly less intrusive. Continued to be delusional and grandiose. He has loose stool, Colace and MiraLax was held but continue offer lactulose. We will check ammonia level tomorrow. Observe by lateral lower extremity edema. Hospitalist consult placed. Regarding depakote level: The?therapeutic range for acute jacob is 50?125 mcg/mL, and most patients respond within this range?1 https://dailymed.nlm.nih.gov/dailymed/drugInfo.cfm?daxfw=5ob885wd-vcv0-0501-6td4 -201g065oeeex ?2 https://pubmed.ncbi.nlm.nih.gov/83354204 .? of note, regarding EKG with prolonged Qtc: The incidence of torsades de pointes (TdP) from antipsychotic-induced QTc prolongation is?very low, estimated at?0.01?0.1%?(1?10 per 10,000 exposures) in clinical practice?1 https://pubmed.ncbi.nlm.nih.gov/57748113 ?2 https://pubmed.ncbi.nlm.nih.gov/49224546 . ?[And in the cases where someone did actually get TdP], the case fatality of TdP is also low, with?<10%?of TdP episodes resulting in cardiac , 12/04 Patient is doing better; less manic, less intrusive and resting more.? Still making grandiose delusional statements such as he is running for president with Roya Jolly, but certainly symptoms are improving.? He says he is on too much medication and repairer typewriter agrees to review? -Lowered to Diazepam 5mg TID (down from 10mg) -dc Benadryl 25mg TID -has been refusing Lactulose; will recheck Ammonia; if elevated will start LCarnatine 12/05 remains hypomanic and making grandiose statements; continue treatment plan; continues to refuse lactulose. Will get labs 12/06 Still manic/hypomanic; overall more easily redirected and less hyperactive but still can be loud, intrusive and he continues to make grandiose statements saying he is the boss, he owns different things, he was born in different countries....sometimes yelling loudly in frustration...none of which is baseline -repairer typewriter tried reality testing however this frustrated patient who remains with impaired insight to his manic episode increase Haldol to total daily dose of 25mg (up from 15mg) Monitoring Qtc ( QTcB Int : 471 ms on 12/06) Ammonia WNL; will lower Lactulose to 20mg daily (down from BID-has not always taken bedtime dose) 12/07 Patient remains manic/hypomanic; will continue current Haldol dose but may increase soon 12/08 remains manic, intrusive and grandiose; quality assurance group leader came in met with him and find some far from baseline. Patient getting angry or today than previously and yelling angrily in the hallway needing to be frequently redirected as he is causing anxiety in the milieu Will increase Haldol to 10 mg t.i.d. If this does not work, will strongly consider tamoxifen as it will take considerable time to petition the court to add ECT to his community [place] 12/09 Remains manic, intrusive with peers. Yelling very angrily this morning in the shower; pretended the door was locked at 1 point. Sometimes yelling loudly in the hallway and slamming doors. Otherwise comes up to staff and peers, typically making unrelated, grandiose statements. Told repairer typewriter that the police are after him... That we need to find his brother and he could be in [place], [place]... Treatment plan: -patient seems to have regressed some in his progress...(though this is a nuanced observation and the progress alluded to was minimal if even there) For now will continue with Haldol 10 mg t.i.d.. It is difficult to know whether or not Abilify had been helping and that he decompensated a little once it was replaced with Haldol he started decompensating or if nothing has been helpful and his manic symptoms just ebb and flow... -tamoxifen remains an option 12/10 pretty much the same presentation; maybe a little more calm? Difficult to tell. Patient remains intrusive but redirectable. -continue current treatment plan for now; will give a few more days on Haldol to see if patient improves 12/11 Remains manic/hypomanic; maybe easier to redirect but still intrusive; still making bizarre or grandiose statements maybe a little less so. Patient continues to have very angry outburst, slamming doors and hitting the wall, sometimes yelling loudly and aggressively, but again able to be redirected -discussed with staff and since this is that patient may have improved a little bit but not all that much; will continue with Haldol 10 mg t.i.d. but strongly considering switching to Abilify 12/12 Patient reports that he has been feeling more stiff and also that Haldol has been giving him nightmares. Foot And Ankle Surgeon discussed this and discussed changing medications to Abilify. Patient agreed with this plan. Also agreed with artane/Trihexyphenidyl for stiffness, likely due to side effect of medication, since patient is allergic to Cogentin (though not clear what allergy is) -will discontinue Haldol and start Abilify; after 5 days of Haldol 10 mg t.i.d., patient's jacob has not really improved. Haldol is also potentially causing patient nightmares and maybe some increased stiffness and has increased risk for prolonged QTC. Abilify was tried in the past but it was a very brief trial so will restart now -repairer typewriter filling out paperwork to amend [facility] to include ECT; even if we are gabriel and patient's jacob resolves with medication management, ECT would have likely resolved this weeks ago and patient will benefit from having ECT listed as a potential treatment 12/15 perhaps hypomania is starting to improve; continue current treatment plan; discussed this with patient who initially seemed to accept it however upset he is not being discharged today. 12/16 continues disorganized and intrussive but reported to be less, and cooperative/taking medication- CTP 12/17 seemed in better control at least this am- CTP 12/18 patient seems overall more calm in needs less redirection and less frequently; sometimes makes jokes that are odd, sometimes makes grandiose statements such as I am a white travel pta, a Wizard and a warlock and will say that he is serious about it. However overall seems to be approaching baseline 12/19 patient denies headache but instead reports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
[2024-12-27 20:22] VITALS: BP 124/69; PULSE 101; RESP 16; TEMP 36.6; O2SAT 97
--- NOTE | 2024-12-27 23:34 | P.DS_ITS ---
DS: Providers Provider Date of Service: 12/28/24 Date of admission: 11/16/24 13:55 Date of discharge: 12/28/24 Primary care physician: Isra King MD Attending physician on admission: Asif Valencia Consults: 11/16/24 15:59 Consult to Hospitalist Routine Comment: severe hyperTAG (started fenofibrate) Consulting Provider: [facility] Hospitalists Reason For Exam: admission physical 11/25/24 11:42 Consult to Hospitalist Routine Comment: Consulting Provider: [facility] Hospitalists Reason For Exam: rt grt toe cellulitis; is Keflex 500mg bID enough? 11/28/24 10:31 Consult to Hospitalist Routine Comment: Consulting Provider: [facility] Hospitalists Reason For Exam: clearance/risk stratify for ECT 12/03/24 21:41 Consult to Hospitalist Routine Comment: Consulting Provider: [facility] Hospitalists Reason For Exam: billateral Lower extremety edema Attending physician on discharge: Asif Valencia DS: Diagnosis Discharge Diagnosis (1) Schizoaffective disorder, bipolar type: Status: Acute (2) Bilateral edema of lower extremity: Status: Acute (3) Autism spectrum disorder: Status: Acute (4) Cellulitis: Status: Resolved (5) Class 3 obesity: Status: Acute DS: Medications Discharge Medications Home Medications: Previous Rx's ?Medication ?Instructions ?Recorded aripiprazole 30 mg tablet (Abilify) 30 mg PO DAILY 30 days #30 tabs 12/27/24 capsaicin 0.025 % topical cream 1 appl topical TID PRN leg pain 30 12/27/24 days #25 grams clonidine HCl 0.1 mg tablet 0.1 mg PO Q4H PRN moderate anxiety 12/27/24 30 days #60 tabs clozapine 200 mg tablet 400 mg (2 x 200 mg) PO BEDTI ME 30 12/27/24 days #60 tabs divalproex 500 mg tablet,extended 3,000 mg (6 x 500 mg ) PO BEDTIME 12/27/24 release 24 hr 30 days #180 tabs docusate sodium 100 mg capsule 100 mg PO BID 30 days # 60 caps 12/27/24 fenofibrate 160 mg tablet 160 mg PO DAILY 30 days #30 tabs 12/27/24 fluticasone propionate 50 1 spray intranasal BID PRN N timothy 12/27/24 mcg/actuation nasal allergy 30 days #16 grams spray,suspension fluticasone propionate 50 1 spray intranasal BID PRN n timothy 12/27/24 mcg/actuation nasal congestion 30 days #16 grams spray,suspension glycopyrrolate 1 mg tablet 1 mg PO TID 30 days #90 tab s 12/27/24 ibuprofen 400 mg tablet 400 mg PO Q6H PRN Pain, 10/0 11/13 Moderate(Pain Scale 4-6) #0 tabs lorazepam 1 mg tablet 1 mg PO Q8H PRN anxiety 30 d ays 12/27/24 #30 tabs risperidone 1 mg tablet 1 mg PO QAM 30 days #30 tabs 12/27/24 risperidone 4 mg tablet 4 mg PO BEDTIME 30 days #30 tabs 12/27/24 trazodone 50 mg tablet 50 mg PO BEDTIME PRN Insomni a 30 12/27/24 days #30 tabs trihexyphenidyl 2 mg tablet 1 mg (1/2 x 2 mg) PO TID 3 0 days 12/27/24 #45 tabs Mental Status Exam Mental Status Exam Narrative: Pt is alert and oriented; behavior is cooperative, friendly; in overall good behavioral control. Still can be intrusive with peers and staff but easily redirected. patient is not in distress; dressed in casual attire, scruffy facial hair but adequate hygiene and grooming; mood is described as good and affect congruent; eye contact appropriate; Speech is normal rate, volume and prosody and not pressured; no psychomotor agitation/retardation present; thought process is goal directed but can become tangential; Thought content is on discharge intermittently with grandiose, delusional ideas; no SI/HI. Denies AVH and there is no evidence of perceptual disturbance. Patients insight and judgment impaired but much improved. Data Data Completed and Pending Completed studies during hospitalization [Text1]: 12/21/24 12/26/24 07:54 09:00 Absolute Neuts (auto) 4.6 Ammonia 46 Valproic Acid 79.0 DS: Summary Time Spent with Patient Time attestation: Total time managing care of this patient today ____ minutes. Discharge Plan Discharge Anticipated Discharge Date/Time: 12/28/24 11:00 Patient Disposition: Home, Self-Care Discharge Diagnosis: Schizoaffective disorder, bipolar type Referrals: [facility] [Other] - 01/08/25 8:30 am Referral Note: 01/08/2025 08:30 AM - 09:30 AM [facility] [Other] - 01/25/25 3:00 pm Referral Note: 01/25/2025 03:00 PM - 04:00 PM Safety [Other] - 1 Week Department of Mental Health [Other] - 1 Week Referral Note: Please follow up with Ioana arzate in the first week post discharge. [facility] [Other] - 02/08/25 11:40 am Referral Note: 02/08/2025 11:40 AM - 12:00 PM Isra King MD [Primary Care Provider, Psychology] - 1 Week Discharge Medications: New glycopyrrolate 1 mg Tablet 1 mg PO TID 30 Days Qty: 90 0RF clonidine HCl 0.1 mg Tablet 0.1 mg PO Q4H PRN (Reason: moderate anxiety) 30 Days Qty: 60 0RF Protocol: Hold for SBP< HOLD for SBP < : 90 fenofibrate 160 mg Tablet 160 mg PO DAILY 30 Days Qty: 30 0RF aripiprazole [Abilify] 30 mg Tablet 30 mg PO DAILY 30 Days Qty: 30 0RF divalproex 500 mg Tablet Extended Release 24 Hr 3,000 mg PO BEDTIME 30 Days Qty: 180 0RF ibuprofen 400 mg Tablet 400 mg PO Q6H PRN (Reason: Pain, Moderate(Pain Scale 4-6)) Qty: 0 0RF trazodone 50 mg Tablet 50 mg PO BEDTIME PRN (Reason: Insomnia) 30 Days Qty: 30 0RF trihexyphenidyl 2 mg Tablet 1 mg PO TID 30 Days Qty: 45 0RF fluticasone propionate 50 mcg/actuation [place],Suspension 1 spray intranasal BID PRN (Reason: Nasal allergy) 30 Days Qty: 16 0RF capsaicin 0.025 % Cream 1 appl topical TID PRN (Reason: leg pain) 30 Days Qty: 25 0RF Protocol: Apply to: Apply to: Lower extremities Continued risperidone 4 mg tablet 4 mg PO BEDTIME 30 Days Qty: 30 0RF docusate sodium 100 mg capsule 100 mg PO BID 30 Days Qty: 60 0RF lorazepam 1 mg tablet 1 mg PO Q8H PRN (Reason: anxiety) 30 Days Qty: 30 0RF risperidone 1 mg tablet 1 mg PO QAM 30 Days Qty: 30 0RF clozapine 200 mg tablet 400 mg PO BEDTIME 30 Days Qty: 60 0RF Changed fluticasone propionate 50 mcg/actuation spray,suspension 1 spray intranasal BID PRN (Reason: nasal congestion) 30 Days Qty: 16 0RF Discontinued hydroxyzine pamoate 50 mg capsule 50 mg PO BID divalproex 500 mg tablet,delayed release (DR/EC) 1,000 mg PO BEDTIME bupropion HCl 300 mg tablet extended release 24 hr 300 mg PO DAILY Discharge Orders: Discharge Order (Routine); Ordered 12/28/24 Ordered By: Asif Valencia Diet: Regular diet Activity on Discharge: As tolerated Stand Alone Forms: Patient Portal Discharge page Print Language: Lithuanian Care Plan Goals: Maintain mood and safe behaviors Take medications as prescribed Practice coping skills Continue with outpatient providers and reach out to them as needed Health Concerns: Mood stability and behaviors Elevated Triacylglycerides Plan of Treatment: Follow up with your PCP, psychiatric provider and other outpatient providers regarding above concerns Take medications as prescribed Assessment: Risk assessment at time of discharge:? Patient was interviewed prior to discharge and found to be fully oriented and without any SI or HI. Patient has improved insight and judgment and wants to continue treatment. Patient is not in imminent risk of harm to self or others and has a safety plan that includes presenting to the closest ER or calling 911 if feeling unsafe.? Patient has been observed closely by nursing and unit staff throughout admission; patient has not engaged in any behaviors that suggest dangerousness to self or others and has demonstrated appropriate behaviors and impulse control
[2024-12-28] MEDS: Throat Lozenge, Medicated LOZENGE 1 LOZENGE MUCOUS MEM (03:10)
[2024-12-28 07:40] VITALS: BP 155/91; PULSE 91; RESP 20; TEMP 36.6; O2SAT 99
[2024-12-28] MEDS: ARIPiprazole 30 MG TABLET PO (07:42)
[2024-12-28 09:11] LABS: Neut%MD 64.9 %; WBCANC 10.2 X10*3/uL
== END 2024-12-28 10:25 | disposition home or self-care (01) | DRG 885 ==
PROVIDERS: Nurse Practitioner Family; Nurse Practitioner Psychiatric/Mental Health; Admitting Provider Psychiatry & Neurology Psychiatry; PCP Psychiatry & Neurology Psychiatry; Visit Provider Psychiatry & Neurology Psychiatry
DX: F25.0 Schizoaffective disorder, bipolar type (principal); R45.851 Suicidal ideations; F84.0 Autistic disorder; B35.1 Tinea unguium; E66.813 Obesity, class 3; E78.1 Pure hyperglyceridemia; L03.031 Cellulitis of right toe; R60.0 Localized edema; Z98.1 Arthrodesis status; Z71.3 Dietary counseling and surveillance; Z68.36 Body mass index [BMI] 36.0-36.9, adult; Z79.899 Other long term (current) drug therapy
CPT/HCPCS: 36415; 80053; 80061; 80076; 80159; 80164; 82140; 83036; 84443; 85048; 92610; 93005

== ENCOUNTER 2024-11-16 13:55 | Outpatient (BNV) | payer MEDICARE, MEDICAID, SELFPAY | END 2024-12-02 16:09 | PROVIDERS: Admitting Provider Psychiatry & Neurology Psychiatry; PCP Psychiatry & Neurology Psychiatry; Visit Provider Internal Medicine Cardiovascular Disease | DX: R00.0 Tachycardia, unspecified (principal) | CPT/HCPCS: 93010 ==

== ENCOUNTER 2024-11-16 13:55 | Outpatient (BNV) | payer MEDICARE, MEDICAID, SELFPAY | END 2024-12-06 12:02 | PROVIDERS: Admitting Provider Psychiatry & Neurology Psychiatry; PCP Psychiatry & Neurology Psychiatry; Visit Provider Internal Medicine | DX: R00.0 Tachycardia, unspecified (principal) | CPT/HCPCS: 93010 ==

== ENCOUNTER → 2024-11-16 13:55 | Outpatient (BNV) | payer MEDICARE, MEDICAID, SELFPAY | PROVIDERS: Admitting Provider Psychiatry & Neurology Psychiatry; PCP Psychiatry & Neurology Psychiatry; Visit Provider Psychiatry & Neurology Psychiatry | DX: F25.0 Schizoaffective disorder, bipolar type (principal); F84.0 Autistic disorder | CPT/HCPCS: 90792; 99231; 99232 ==

== ENCOUNTER → 2024-11-16 13:55 | Outpatient (BNV) | payer MEDICARE, MEDICAID, SELFPAY | PROVIDERS: Admitting Provider Psychiatry & Neurology Psychiatry; PCP Psychiatry & Neurology Psychiatry; Visit Provider Physician Assistant | DX: F25.0 Schizoaffective disorder, bipolar type (principal) | CPT/HCPCS: 99222; 99499 ==

== ENCOUNTER 2025-01-26 11:43 | Emergency (ER) | payer MEDICARE, MEDICAID, SELFPAY ==
[2025-01-26 11:53] VITALS: RESP 16; BMI 32.1
[2025-01-26 12:03] VITALS: BP 96/64; PULSE 106; RESP 16; TEMP 36.2; O2SAT 99
--- NOTE | 2025-01-26 12:06 | ED.GENADULT ---
HPI - General Adult General Chief complaint: Psychiatric Symptoms Stated complaint: sect 12 from chd, manic, delusional, manic Time Seen by Provider: 01/26/25 11:53 Source: patient and EMS Mode of arrival: EMS Limitations: other (poor historian ) History of Present Illness HPI narrative: This is a 34-year-old male past medical history significant for autism, schizoaffective disorder, bipolar type, obesity who presents from respite, according to the respite facility patient has been having increased delusions, jacob and poor ability to redirect while at the program patient was recently discharged from [facility] on 01/24 and went to respite. Patient denies any acute complaints and is wondering why he is here. He denies visual, auditory and tactile hallucinations. He is not suicidal or homicidal. He denies all medical complaints including chest pain, shortness of breath, fevers, chills, nausea, vomiting, abdominal pain Related Data Home Medications ?Medication ?Instructions ?Recorded ?Confirmed aripiprazole 30 mg tablet (Abilify) 15 mg PO DAILY 01/26/25 01/26/25 baclofen 10 mg tablet 10 mg PO TID 01/26/25 01/26/25 clonidine HCl 0.1 mg tablet 0.1 mg PO TID moderate anxiety 01/26/25 01/26/25 divalproex 500 mg tablet,extended 1,000 mg PO BEDTIME 01/26/25 01/26/25 release 24 hr divalproex 500 mg tablet,extended 500 mg PO DAILY 01/26/25 01/26/25 release 24 hr hydroxyzine HCl 50 mg tablet 50 mg PO BID 01/26/25 01/26/25 trihexyphenidyl 2 mg tablet 1 mg PO TID 01/26/25 01/26/25 Previous Rx's ?Medication ?Instructions ?Recorded capsaicin 0.025 % topical cream 1 appl topical TID PRN leg pain 30 12/27/24 days #25 grams clozapine 200 mg tablet 400 mg (2 x 200 mg) PO BEDTIME 30 12/27/24 days #60 tabs docusate sodium 100 mg capsule 100 mg PO BID 30 days #60 caps 12/27/24 fenofibrate 160 mg tablet 160 mg PO DAILY 30 days #30 tabs 12/27/24 fluticasone propionate 50 1 spray intranasal BID PRN nasal 12/27/24 mcg/actuation nasal congestion 30 days #16 grams spray,suspension glycopyrrolate 1 mg tablet 1 mg PO TID 30 days #90 tabs 12/27/24 lorazepam 1 mg tablet 1 mg PO Q8H PRN anxiety 30 days 12/27/24 #30 tabs risperidone 1 mg tablet 1 mg PO QAM 30 days #30 tabs 12/27/24 risperidone 4 mg tablet 4 mg PO BEDTIME 30 days #30 tabs 12/27/24 trazodone 50 mg tablet 50 mg PO BEDTIME PRN Insomnia 30 12/27/24 days #30 tabs Allergies Allergy/AdvReac Type Severity Reaction Status Date / Time benztropine (From COGENTIN) Allergy Unknown UNKNOWN Verified 01/26/25 12:02 propranolol (From INDERAL LA) Allergy Unknown UNKNOWN Verified 01/26/25 12:02 chaste tree Allergy Unknown Verified 01/26/25 12:02 lithium Allergy Unknown Verified 01/26/25 12:02 Review of Systems Review of Systems: Yes all other systems are reviewed and are negative PMFSH Past Medical History Attestation statement: The following information was validated with the patient. Source: old records reviewed and nursing notes reviewed Medical History (Updated 01/27/25 @ 11:13 by aSntos Fernandez MD) Schizoaffective disorder, bipolar type Social History Social History Household Members: Other Household Members Other:: halfway Housing: Other Housing Other:: halfway Do you presently have visiting nurse or other home services: Yes Alcohol intake: current Patient Tobacco Use Status: Never used Tobacco service: No Sexual orientation: Straight/Heterosexual Physical Exam ED Exam Exam: Appearance: Alert.? Oriented X3.? No acute distress.? Head: Normocephalic, atraumatic, no step-offs or deformities Eyes: Pupils equal, round and reactive to light.? ENT: Pharynx normal.? Neck: Normal inspection.? Neck supple.? CVS: Normal heart rate and rhythm.? Pulses normal.? Respiratory: No respiratory distress.? Breath sounds normal.? Abdomen: Soft and nontender.? Skin: Skin warm and dry.? Normal skin color.? Normal skin turgor.? Extremities: No lower extremity edema.? No calf ttp. 5/5 strength to bilateral upper and lower extremities Back: No midline tenderness, no C-spine tenderness, full range of motion, no CVA tenderness bilaterally Neuro: Oriented X 3.? No motor deficit.? No sensory deficit. CN 2-12 intact Vital Signs: Vital Signs - 24 hr 01/29/25 18:33 Temperature 97 F Pulse Rate 97 Respiratory Rate 18 Blood Pressure 116/66 Pulse Oximetry 97 Oxygen Delivery Method Room Air BMI result Body Mass Index 32.1 vss Course Reevaluation(s) Reevaluation #1: CBC unremarkable. Chemistry with no acute findings needing intervention. UA no infection. Urine toxicology negative. Valproic acid level low. Will continue his home meds once med rec is done. Ethanol negative. Time: 16:02 Reevaluation #2: Physician observation will be initiated at this time to allow more time to be evaluated by care team. Time: 16:23 Reevaluation #3: 01/26/25 - 175--patient was evaluated by CARE team, will be inpatient bed search. Additional Reevaluation(s): Time: 05:24 Date: 01/27/25 Provider: Santos Fernandez MD Patient in physician observation for psychiatric evaluation.? No acute events reported overnight. No current complaints. U tox was negative. Ethanol was below detectable limits. VS stable.? Patient is on a section 12 and is in bed search status. Time: 05:17 Date: 01/28/25 Provider: Santos Fernandez MD Patient in physician observation for psychiatric evaluation.? No acute events reported overnight. No current complaints. VS stable.? Patient was re-evaluated by care team yesterday. Care team requested psychiatric consult to determine effective medications and disposition. Will continue to monitor. Time: 10:36 Date: 01/29/25 Provider: Luma Valenzuela, Patient in physician observation for psychiatric evaluation.? No acute events reported overnight. No current complaints. VS stable.? Patient is in bed search status.Will continue to monitor. JOSELO [id number] 01/29/25 physician observation ended patient transferred to acute psychiatric facility, [facility], by ambulance Medications Administered Discontinued Medications Generic Name Dose Route Start Last Admin Trade Name Freq PRN Reason Stop Dose Admin Aripiprazole 15 mg 01/27/25 09:00 01/28/25 08:00 Aripiprazole 15 Mg Tablet PO 15 mg DAILY STEWART Administration Aripiprazole 30 mg 01/29/25 09:00 01/29/25 08:14 Aripiprazole 30 Mg Tablet PO 30 mg DAILY STEWART Administration Baclofen 10 mg 01/26/25 21:00 01/29/25 14:26 Baclofen 10 Mg Tablet PO 10 mg TID STEWART Administration Clonidine HCl 0.1 mg 01/26/25 21:00 01/29/25 14:26 Clonidine Hcl 0.1 Mg Tablet PO 0.1 mg TID STEWART Administration Protocol Clozapine 400 mg 01/26/25 21:00 01/28/25 20:09 Clozapine 100 Mg Tablet PO 400 mg BEDTIME STEWART Administration Divalproex Sodium 500 mg 01/27/25 09:00 01/28/25 08:01 Divalproex Sodium Er 500 Mg Tab.Er.24h PO 500 mg DAILY STEWART Administration Divalproex Sodium 1,000 mg 01/26/25 21:00 01/27/25 20:17 Divalproex Sodium Er 500 Mg Tab.Er.24h PO 1,000 mg BEDTIME STEWART Administration Divalproex Sodium 3,000 mg 01/28/25 21:00 01/28/25 20:08 Divalproex Sodium Er 500 Mg Tab.Er.24h PO 3,000 mg BEDTIME STEWART Administration Docusate Sodium 100 mg 01/26/25 21:00 01/29/25 08:14 Docusate Sodium 100 Mg Capsule PO 100 mg BID STEWART Administration Fenofibrate 160 mg 01/27/25 09:00 01/29/25 08:14 Fenofibrate 160 Mg Tablet PO 160 mg DAILY STEWART Administration Glycopyrrolate 1 mg 01/26/25 21:00 01/29/25 14:26 Glycopyrrolate 1 Mg Tablet PO 1 mg TID STEWART Administration Hydroxyzine HCl 50 mg 01/26/25 21:00 01/29/25 08:14 Hydroxyzine Hcl 50 Mg Tablet PO 50 mg BID STEWART Administration Lorazepam 1 mg 01/26/25 16:17 01/29/25 14:26 Lorazepam 1 Mg Tablet PO 1 mg Q8H PRN Administration Anxiety Risperidone 1 mg 01/27/25 09:00 01/29/25 08:15 Risperidone 1 Mg Tablet PO 1 mg DAILY STEWART Administration Risperidone 4 mg 01/26/25 21:00 01/28/25 20:09 Risperidone 2 Mg Tablet PO 4 mg BEDTIME STEWART Administration Trazodone HCl 50 mg 01/26/25 16:17 01/27/25 20:16 Trazodone Hcl 50 Mg Tablet PO 50 mg BEDTIME PRN Administration Insomnia Trihexyphenidyl HCl 1 mg 01/26/25 21:00 01/29/25 14:26 Trihexyphenidyl Hcl 2 Mg Tablet PO 1 mg TID STEWART Administration Medical Decision Making Medical Decision Making [facility] Narrative: 34-year-old male presents from respite respite isn't concerned about patient having increased delusions, jacob and poor ability to redirect. Patient offers no complaints while here. Not suicidal or homicidal. He is cooperative. Physical exam benign. History and physical exam concerning for possible autism versus schizophrenia. Unlikely suicidal or homicidal ideation. Unlikely metabolic derangements. Plan medical clearance evaluation by care team Differential Diagnosis Differential Diagnoses: The differential diagnosis associated with the presentation includes (History and physical exam concerning for possible autism versus schizophrenia. Unlikely suicidal or homicidal ideation. Unlikely metabolic derangements.) Admission/Observation Consideration of admission/observation: Escalation of care including admission/observation considered Lab Data [facility] Lab Attestation statement: I reviewed the patient's lab results. 01/26/25 14:13 01/26/25 14:13 Labs: Lab Results 01/26/25 01/26/25 Range/Units 14:13 14:16 WBC 10.2 (4.8-10.8) X10*3/uL RBC 4.73 (4.60-5.80) X10*6/uL Hgb 13.5 L (14.0-18.0) g/dl Hct 42.3 (42.0-52.0) % MCV 89.4 (80.0-98.0) fL MCH 28.5 (27.0-33.0) pg MCHC 31.9 (31.0-36.0) g/dl RDW 14.2 (11.0-16.0) % Plt Count 261 (160-400) X10*3/uL MPV 9.9 (9.4-12.4) fL Immature Gran % (Auto) 0.8 H (0.0-0.4) % Neut % (Auto) 59.2 (45-73) % Lymph % (Auto) 27.5 (20-40) % [place] % (Auto) 10.9 (2-11) % Eos % (Auto) 1.2 (0-4) % Baso % (Auto) 0.4 (0-2) % Lymph # (Auto) 2.8 (1.2-4.9) X10*3/uL [place] # (Auto) 1.1 (0.1-1.2) X10*3/uL Eos # (Auto) 0.1 (0.0-0.4) X10*3/uL Baso # (Auto) 0.0 (0.0-0.2) X10*3/uL Abs Immat Gran (auto) 0.08 H (0.00-0.03) X10*3/uL Absolute Neuts (auto) 6.0 (2.0-8.3) x10*3/uL Absolute Nucleated RBC 0.000 (0.0-0.012) X10*3/uL Nucleated RBC % (auto) 0.0 (0.0-0.2) /100WBC Sodium 139 (135-145) mmol/L Potassium 4.3 (3.3-5.1) mmol/L Chloride 104 (96-108) mmol/L Carbon Dioxide 29 (22-29) mmol/L Anion Gap 10 L (12-20) BUN 17 H (9-16) mg/dL Creatinine 1.06 (0.5-1.4) mg/dL Estim Creat Clear Calc 118.4 Estimated GFR > 60 Random Glucose 88 (60-115) mg/dL Calcium 9.2 (8.4-10.2) mg/dL Total Bilirubin 0.3 (0.0-1.0) mg/dL AST 47 H (5-37) U/L ALT 57 H (0-40) U/L Alkaline Phosphatase 90 (39-117) U/L Total Protein 7.6 (6.5-8.0) g/dL Albumin 4.1 (3.5-5.0) g/dL Urine Color Yellow Urine Appearance Clear Urine pH 5.5 (5.0-9.0) Ur Specific [place] 1.020 (1.005-1.025) Urine Protein Negative (Neg-Trace) mg/dL Urine Glucose (UA) Negative (Negative) mg/dL Urine Ketones Trace (Negative) mg/dL Urine Blood Negative (Negative) Urine Nitrite Negative (Negative) Ur Leukocyte Esterase Trace H (Negative) Urine RBC 0-2 (0-2) /HPF Urine WBC 0-5 (0-5) /HPF Ur Squamous Epith Cells 0-2 (0-2) /HPF Urine Bacteria None Seen (None Seen) Hyaline Casts 0-2 (0-2) /LPF Urine Opiates Screen Not Detected (Not Detect) Ur Buprenorphine Scrn Not Detected (Not Detect) ng/mL Ur Oxycodone Screen Not Detected (Not Detect) ng/mL Urine Methadone Screen Not Detected (Not Detect) ng/mL Urine Fentanyl Screen Not Detected (Not Detect) Ur Barbiturates Screen Not Detected (Not Detect) Valproic Acid 25.5 L (50.0-100.0) mcg/mL Ur Phencyclidine Scrn Not Detected (Not Detect) Ur Amphetamines Screen Not Detected (Not Detect) U Benzodiazepines Scrn Not Detected (Not Detect) Urine Cocaine Screen Not Detected (Not Detect) U Marijuana (THC) Screen Not Detected (Not Detect) Ethyl Alcohol < 10 mg/dL External Record Review External record reviewed: Inpatient record, Office record, Outpatient record, Prior outpatient labs, Prior outpatient radiology, Primary care record and Outside ED record Chronic Conditions Patient?s care impacted by: Other (as per hpi ) Social Determinants Patient?s care significantly limited by Social Determinants of Health including: Other Social Determinant of Health Discharge Plan Discharge Clinical Impression: Schizoaffective disorder, bipolar type, Autism spectrum disorder Patient Disposition: Xfer Psychiatric Hosp Prescriptions: No Action glycopyrrolate 1 mg Tablet 1 mg PO TID 30 Days Qty: 90 0RF fenofibrate 160 mg Tablet 160 mg PO DAILY 30 Days Qty: 30 0RF trazodone 50 mg Tablet 50 mg PO BEDTIME PRN (Reason: Insomnia) 30 Days Qty: 30 0RF capsaicin 0.025 % Cream 1 appl topical TID PRN (Reason: leg pain) 30 Days Qty: 25 0RF Protocol: Apply to: Apply to: Lower extremities risperidone 4 mg tablet 4 mg PO BEDTIME 30 Days Qty: 30 0RF docusate sodium 100 mg capsule 100 mg PO BID 30 Days Qty: 60 0RF lorazepam 1 mg tablet 1 mg PO Q8H PRN (Reason: anxiety) 30 Days Qty: 30 0RF fluticasone propionate 50 mcg/actuation spray,suspension 1 spray intranasal BID PRN (Reason: nasal congestion) 30 Days Qty: 16 0RF risperidone 1 mg tablet 1 mg PO QAM 30 Days Qty: 30 0RF clozapine 200 mg tablet 400 mg PO BEDTIME 30 Days Qty: 60 0RF clonidine HCl 0.1 mg tablet 0.1 mg PO TID Protocol: Hold for SBP< HOLD for SBP < : 90 divalproex 500 mg tablet extended release 24 hr 500 mg PO DAILY trihexyphenidyl 2 mg tablet 1 mg PO TID aripiprazole [Abilify] 30 mg tablet 15 mg PO DAILY hydroxyzine HCl 50 mg tablet 50 mg PO BID baclofen 10 mg tablet 10 mg PO TID divalproex 500 mg tablet extended release 24 hr 1,000 mg PO BEDTIME Referrals: Isra King MD [Physician, Psychology] Ekta Conroy MD [Primary Care Provider, Internal Medicine] Interventions: Orange-Suicide Risk Severity Scale Last Done: 01/28/25 19:22 Acute Care Transfer Worksheet (ED) Last Done: 01/29/25 18:33 Discharge Date/Time: 01/29/25 18:35 Print Language: Divehi
[2025-01-26 14:24] LABS: MANUAL DIFF FLAG NO
[2025-01-26 14:28] LABS: Appearance Urine Clear; Glucose Urine UA Negative (Negative); PH 5.5 (5.0-9.0); Specific Gravity - Urine 1.020 (1.005-1.025); UMIC TRIGGER UACC YES
[2025-01-26 14:31] LABS: Hematocrit 42.3 % (42.0-52.0); Hemoglobin 13.5 g/dl (14.0-18.0); Imm Gran Abs Auto 0.08 X10*3/uL (0.00-0.03); Imm Gran Pct Auto 0.8 % (0.0-0.4); Lymphocytes Absolute Auto 2.8 X10*3/uL (1.2-4.9); Mean Corpuscular HGB Conc 31.9 g/dl (31.0-36.0); Mean Corpuscular Hemoglobin 28.5 pg (27.0-33.0); Mean Corpuscular Volume 89.4 fL (80.0-98.0); NRBC Abs Auto 0.000 X10*3/uL (0.0-0.012); NRBC Pct Auto 0.0 /100WBC (0.0-0.2); Platelet Count 261 X10*3/uL (160-400); Red Blood Count 4.73 X10*6/uL (4.60-5.80); White Blood Count 10.2 X10*3/uL (4.8-10.8)
[2025-01-26 14:37] LABS: Cannabinoid Screen Urine Not Detected (Not Detect)
[2025-01-26 14:44] LABS: Alanine Aminotransferase 57 U/L (0-40); Albumin Level 4.1 g/dL (3.5-5.0); Alkaline Phosphatase 90 U/L (39-117); Anion Gap 10 (12-20); Aspartate Amino Transferase 47 U/L (5-37); Blood Urea Nitrogen 17 mg/dL (9-16); Calcium 9.2 mg/dL (8.4-10.2); Carbon Dioxide 29 mmol/L (22-29); Chloride 104 mmol/L (96-108); Creatinine Clr Calc Pharmacy 118.4; Estimated Glomerular Filt Rate > 60; Potassium 4.3 mmol/L (3.3-5.1); Sodium 139 mmol/L (135-145); Total Protein 7.6 g/dL (6.5-8.0)
--- NOTE | 2025-01-26 15:09 | MHC.CARE ---
T/w reached out to [facility] to inquire into why patient was sent to the ED on a 12. Isaias from [facility] reviews the notes from [facility], which patient had stepped down to from [facility]. Isaias shares that the notes seem to indicate that pt was joking about a paper check, not redirectable, notes in their system indicate 'delusions' however no concerning behaviors. Notes from patient's [facility] admission to within the past two months indicate delusions and grandiosity at baseline.
--- NOTE | 2025-01-26 16:10 | PC.NURSE ---
RE; Clozapine Dose [facility] respite staff verified that patient last took his Clozapine yesterday 01/25/2025
[2025-01-26 18:17] VITALS: BP 119/72; PULSE 92; RESP 20; TEMP 36.1; O2SAT 99
--- NOTE | 2025-01-26 18:43 | MHC.CARE ---
CARE team assessment completed, plan is for [facility]. New section 12 completed and placed in the physical chart in the pod.
--- NOTE | 2025-01-26 19:10 | PC.NURSE ---
this RN assumed care of this pt @1900, pt noted sitting in common area of Pod, watching television, pt appears to be in no apparent / respiratory distress noted, safety checks and video monitor in place for safety
[2025-01-26 21:11] VITALS: BP 123/71
[2025-01-27 00:47] VITALS: BP 138/69; PULSE 88; RESP 17; TEMP 36.7; O2SAT 100
--- NOTE | 2025-01-27 07:46 | PC.NURSE ---
Assumed care of patient at 0645, patient appears to be in no apparent distress this am, ambulating with steady gait around ED, struggling with maintaining boundaries with others, frequently interrupting conversations with others, remains easily redirectable. Continue plan of care for [facility]
[2025-01-27 07:52] VITALS: BP 105/74; PULSE 110; RESP 20; TEMP 36.7; O2SAT 98
--- NOTE | 2025-01-27 09:28 | PHA.MEDREC ---
Pharmacy Consult ? Medication Reconciliation Pharmacy has completed the medication reconciliation. Reviewed med rec completed by nursing, matches claim history
--- NOTE | 2025-01-27 09:31 | MHC.CARE ---
T/w attempted to reach out to Carla, noted in records as being [facility] involved, no VM available and outgoing message states 'the local owner operator truck driver of this number is not able to accept calls at this time.' Attempted to reach Lauren, described in records as a program schedule clerk. Phone does not ring, an announcement informs t/w that the phone number is not in service. T/w attempting to make these calls to ascertain [facility] readiness for patient to return should he continue to maintain bx control. Will continue to search for/ attempt to call contacts as it seems patient has been on an inpatient unit or [facility] since at least late summer 2024 and it seems that clarity on programs goals for an admission would be. It also seems that ECT was discussed but would require amendment to Kyrie's Order, and has that been discussed/ considered among patient's OP team/ guardian.
--- NOTE | 2025-01-27 12:41 | MHC.CARE ---
Carla's number is working now, VM left, requesting call back to discuss concerns and to also discuss what patients bxs would need to look like for return to . At the time of this writing he has been in bx control and redirectable.
--- NOTE | 2025-01-27 14:12 | PC.NURSE ---
Ash has been extremely pleasant, calm and cooperative, taking all of his regularly prescribed medications without issue. Pt does occasionally accidently enter other's personal space however, he is easily redirectable, apologizing and continuing on with his day. He slept through most of the night and took a nap mid day. Currently he is showering independently. He does well listening to music, coloring and watching TV
[2025-01-27 14:36] VITALS: BP 108/64; PULSE 98; RESP 18; TEMP 36.2; O2SAT 98
[2025-01-27 20:15] VITALS: BP 106/70
--- NOTE | 2025-01-27 22:31 | PC.NURSE ---
Assumed care at 1845. Presents as polite, calm, and cooperative. Visible on the unit, watching tv/coloring. Requests food/liquids as needed. Adherent to HS scheduled medications. Utilized PRN Trazodone with good effect. Mouth checks completed. Denies current pain/discomfort. Showered x1 independently before heading to bed. No redirection needed. No issues with poor boundaries. No s/sx of jacob or delusions observed. Denied SI/HI/AVH. Agreeable to alert staff if feeling unsafe. Remains in behavioral control. 15 minute checks ongoing. Plan of care ongoing...
--- NOTE | 2025-01-28 07:17 | PC.NURSE ---
Assumed care, report received. Pt is currently sleeping, breakfast is provided.
--- NOTE | 2025-01-28 10:44 | PM.PSYCN ---
History of Present Illness Date of Service: 01/28/25 Chief Complaint: sect 12 from chd, manic, delusional, manic Reason for Consult: Bed search and med adjustments while waiting for same HPI Narrative: Discharge M5 12/27/24: Regarding medication: On current regimen, patient's ammonia is WNL and Depakote level is therapeutic at 79; given this level, life underwriter would like to increase dose however patient does not want to be on a higher dose than this. Impression: Patient is much improved and has remained so for over a week. And while he can still be intrusive and has delusional ideas, he is overall in good behavioral control, is easily redirected and remains friendly and overall calm. Patient has earned back all his kitchen and milieu privileges including attending groups which he does so appropriately. [facility] staff who know him well and for years report that in the past when patient has become manic, it has taken up to 5 or 6 months for him to returned to baseline. To life underwriter that strongly suggests that once patient is on an adequate medication regimen, the rest of patient's improvement is due to time... And for this reason, ended at this time, life underwriter does not intend to make additional medication changes. Patient wants to discharge. And given his improvement and presentation it is life underwriter's opinion that he has earned a chance to see if he can continue progressing in a less restrictive setting, i.e. his intermediate which is a supportive and therapeutic environment and with staff and know him well. [facility] staff has some concern that he may elope as he has done in the past. While this is a concern, at this time life underwriter can not testify that patient is in imminent risk for harm to self or others or that there is no less restrictive setting for patients treatment...Thus, patient's request for discharge honored. DC Meds: New glycopyrrolate 1 mg Tablet 1 mg PO TID 30 Days Qty: 90 0RF clonidine HCl 0.1 mg Tablet 0.1 mg PO Q4H PRN (Reason: moderate anxiety) 30 Days Qty: 60 0RF Protocol: Hold for SBP< HOLD for SBP < : 90 fenofibrate 160 mg Tablet 160 mg PO DAILY 30 Days Qty: 30 0RF aripiprazole [Abilify] 30 mg Tablet 30 mg PO DAILY 30 Days Qty: 30 0RF divalproex 500 mg Tablet Extended Release 24 Hr 3,000 mg PO BEDTIME 30 Days Qty: 180 0RF ibuprofen 400 mg Tablet 400 mg PO Q6H PRN (Reason: Pain, Moderate(Pain Scale 4-6)) Qty: 0 0RF trazodone 50 mg Tablet 50 mg PO BEDTIME PRN (Reason: Insomnia) 30 Days Qty: 30 0RF trihexyphenidyl 2 mg Tablet 1 mg PO TID 30 Days Qty: 45 0RF fluticasone propionate 50 mcg/actuation [place],Suspension 1 spray intranasal BID PRN (Reason: Nasal allergy) 30 Days Qty: 16 0RF capsaicin 0.025 % Cream 1 appl topical TID PRN (Reason: leg pain) 30 Days Qty: 25 0RF Protocol: Apply to: Apply to: Lower extremities Continued risperidone 4 mg tablet 4 mg PO BEDTIME 30 Days Qty: 30 0RF docusate sodium 100 mg capsule 100 mg PO BID 30 Days Qty: 60 0RF lorazepam 1 mg tablet 1 mg PO Q8H PRN (Reason: anxiety) 30 Days Qty: 30 0RF risperidone 1 mg tablet 1 mg PO QAM 30 Days Qty: 30 0RF clozapine 200 mg tablet 400 mg PO BEDTIME 30 Days Qty: 60 0RF Changed fluticasone propionate 50 mcg/actuation spray,suspension 1 spray intranasal BID PRN (Reason: nasal congestion) 30 Days Qty: 16 0RF Discontinued hydroxyzine pamoate 50 mg capsule 50 mg PO BID divalproex 500 mg tablet,delayed release (DR/EC) 1,000 mg PO BEDTIME bupropion HCl 300 mg tablet extended release 24 hr 300 mg PO DAILY [facility] alonso 01/26/25: Sent due to concerns around behavior and comments in the community following step-down from inpatient level of care at [facility]. Noted Community Vela order and court appointed legal guardian. CHD providers and CHD residential program in [place]. Residential staff concerned around elevated mood, impulsivity and intrusiveness, irritability and agitation. Today: In the ER has difficulty with boundaries and has been intrusive. Veneer Puller did observe this yesterday with another patient, where Ash did not need lots of redirection and could easily have placed himself in a dangerous situation due to his poor boundaries and intrusiveness. He has been pleasant with staff. Is accepting medications. Very pressured speech. Sleep has been okay. Denies feeling depressed. Denies SI or HI. Denies paranoia or hallucinations. Looking forward to staff visiting and getting his gurpreet system later. Past Psychiatric History: Diagnosis of schizoaffective disorder and autism spectrum disorder. A CHD services. CHD group living environment. Discharged from on 12/27/2024. Recent discharge from [facility]. Discharge medications from included clozapine 400 mg at bedtime, Risperdal 1 mg daily and 4 mg at bedtime, Ativan 1 mg as needed up to 3 times per day, glycopyrrolate 1 mg 3 times per day, clonidine 0.1 mg as needed, Abilify 30 mg daily, Depakote 3000 mg at bedtime, trazodone 50 mg as needed. Community Vela order in place and court-ordered guardian Medical Evaluation Reviewed: Yes [facility] Medical History (Updated 01/27/25 @ 11:13 by Santos Fernandez MD) Schizoaffective disorder, bipolar type Family History: Patient raised in foster care Social History: Patient raised in foster care Foster parents still somewhat involved Patient has guardian and Vela order; lives in intermediate Trauma History: Deferred Diagnostics Vital Signs (24Hr): Vital Signs - 24 hr 01/27/25 14:36 01/27/25 20:15 Temperature 97.1 F Pulse Rate 98 Respiratory Rate 18 Blood Pressure 108/64 106/70 Pulse Oximetry 98 Oxygen Delivery Method Room Air BMI result Body Mass Index 32.1 Labs 01/26/25 14:13 01/26/25 14:13 Labs: Laboratory Results - last 48 hr 01/26/25 01/26/25 14:13 14:16 WBC 10.2 RBC 4.73 Hgb 13.5 L Hct 42.3 MCV 89.4 MCH 28.5 MCHC 31.9 RDW 14.2 Plt Count 261 MPV 9.9 Immature Gran % (Auto) 0.8 H Neut % (Auto) 59.2 Lymph % (Auto) 27.5 Perkins % (Auto) 10.9 Eos % (Auto) 1.2 Baso % (Auto) 0.4 Lymph # (Auto) 2.8 Perkins # (Auto) 1.1 Eos # (Auto) 0.1 Baso # (Auto) 0.0 Abs Immat Gran (auto) 0.08 H Absolute Neuts (auto) 6.0 Absolute Nucleated RBC 0.000 Nucleated RBC % (auto) 0.0 Sodium 139 Potassium 4.3 Chloride 104 Carbon Dioxide 29 Anion Gap 10 L BUN 17 H Creatinine 1.06 Estim Creat Clear Calc 118.4 Estimated GFR > 60 Random Glucose 88 Calcium 9.2 Total Bilirubin 0.3 AST 47 H ALT 57 H Alkaline Phosphatase 90 Total Protein 7.6 Albumin 4.1 Urine Color Yellow Urine Appearance Clear Urine pH 5.5 Ur Specific [place] 1.020 Urine Protein Negative Urine Glucose (UA) Negative Urine Ketones Trace Urine Blood Negative Urine Nitrite Negative Ur Leukocyte Esterase Trace H Urine RBC 0-2 Urine WBC 0-5 Ur Squamous Epith Cells 0-2 Urine Bacteria None Seen Hyaline Casts 0-2 Urine Opiates Screen Not Detected Ur Buprenorphine Scrn Not Detected Ur Oxycodone Screen Not Detected Urine Methadone Screen Not Detected Urine Fentanyl Screen Not Detected Ur Barbiturates Screen Not Detected Valproic Acid 25.5 L Ur Phencyclidine Scrn Not Detected Ur Amphetamines Screen Not Detected U Benzodiazepines Scrn Not Detected Urine Cocaine Screen Not Detected U Marijuana (THC) Screen Not Detected Ethyl Alcohol < 10 Medications Medications Current Medications Aripiprazole (Aripiprazole 15 Mg Tablet) 15 mg PO DAILY [facility] Last Admin: 01/28/25 08:00 Dose: 15 mg Baclofen (Baclofen 10 Mg Tablet) 10 mg PO TID [facility] Last Admin: 01/28/25 08:00 Dose: 10 mg Capsaicin (Capsaicin 0.025% Cream 60 Gm Tube) 1 appl TOPICAL TID PRN; Protocol PRN Reason: leg pain Clonidine HCl (Clonidine Hcl 0.1 Mg Tablet) 0.1 mg PO TID [facility]; Protocol Last Admin: 01/28/25 08:00 Dose: 0.1 mg Clozapine (Clozapine 100 Mg Tablet) 400 mg PO BEDTIME [facility] Last Admin: 01/27/25 20:14 Dose: 400 mg Divalproex Sodium (Divalproex Sodium Er 500 Mg Tab.Er.24h) 500 mg PO DAILY [facility] Last Admin: 01/28/25 08:01 Dose: 500 mg Divalproex Sodium (Divalproex Sodium Er 500 Mg Tab.Er.24h) 1,000 mg PO BEDTIME [facility] Last Admin: 01/27/25 20:17 Dose: 1,000 mg Docusate Sodium (Docusate Sodium 100 Mg Capsule) 100 mg PO BID [facility] Last Admin: 01/28/25 08:00 Dose: 100 mg Fenofibrate (Fenofibrate 160 Mg Tablet) 160 mg PO DAILY [facility] Last Admin: 01/27/25 08:50 Dose: 160 mg Fluticasone Propionate (Fluticasone Propionate Nasal 16 Gm [place]) 1 spray NOSTRIL-B BID PRN PRN Reason: Nasal Congestion Glycopyrrolate (Glycopyrrolate 1 Mg Tablet) 1 mg PO TID [facility] Last Admin: 01/28/25 08:01 Dose: 1 mg Hydroxyzine HCl (Hydroxyzine Hcl 50 Mg Tablet) 50 mg PO BID [facility] Last Admin: 01/28/25 08:01 Dose: 50 mg Lorazepam (Lorazepam 1 Mg Tablet) 1 mg PO Q8H PRN PRN Reason: Anxiety Last Admin: 01/28/25 10:31 Dose: 1 mg Risperidone (Risperidone 1 Mg Tablet) 1 mg PO DAILY [facility] Last Admin: 01/28/25 08:01 Dose: 1 mg Risperidone (Risperidone 2 Mg Tablet) 4 mg PO BEDTIME [facility] Last Admin: 01/27/25 20:15 Dose: 4 mg Trazodone HCl (Trazodone Hcl 50 Mg Tablet) 50 mg PO BEDTIME PRN PRN Reason: Insomnia Last Admin: 01/27/25 20:16 Dose: 50 mg Trihexyphenidyl HCl (Trihexyphenidyl Hcl 2 Mg Tablet) 1 mg PO TID [facility] Last Admin: 01/28/25 08:00 Dose: 1 mg Allergies Allergies Allergy/AdvReac Type Severity Reaction Status Date / Time benztropine (From COGENT[place]) Allergy Unknown UNKNOWN Verified 01/26/25 12:02 propranolol (From [place]DERAL [place]) Allergy Unknown UNKNOWN Verified 01/26/25 12:02 chaste tree Allergy Unknown Verified 01/26/25 12:02 lithium Allergy Unknown Verified 01/26/25 12:02 Assessment & Plan Assessment & Plan (1) Schizoaffective disorder, bipolar type: Status: Acute Code(s): F25.0 - Schizoaffective disorder, bipolar type (2) Autism spectrum disorder: Status: Acute Code(s): F84.0 - Autistic disorder Plan 34-year-old male with history of schizoaffective disorder and autism spectrum disorder, recent discharge from [facility] and also M 5. intermediate resident and unclear how close he is to his usual baseline, but they have expressed concerns around irritability, impulsivity, intrusiveness and placing self in danger to to same. In the ED has been pleasant and cooperative although does require lots of redirection. Has been adherent with medications. Overall inpatient bed search currently appropriate. Would continue to evaluate this on a daily basis while also losing with intermediate staff around treatment and disposition planning, should he show progress / stabilize close to baseline in the ED, inpatient stay may not be necessary. Otherwise adjust meds to what seemed helpful when he was dischared from - ie raise Depakote back to 3000 mg, increase Abilify back to 30 mg and continue clozapine 400 mg Total time managing care of this patient today ____ minutes.
[2025-01-28 14:00] VITALS: BP 112/70; PULSE 86; RESP 18; TEMP 36.6; O2SAT 97
--- NOTE | 2025-01-29 | ECG_ITS ---
Test Reason : R/O PROLONGED QT Blood Pressure : */* mmHG Vent. Rate : 90 BPM Atrial Rate : 90 BPM P-R Int : 128 ms QRS Dur : 82 ms QT Int : 358 ms P-R-T Axes : 68 34 45 degrees QTcB Int : 437 ms Normal sinus rhythm Normal ECG When compared with ECG of 06-Dec-2024 12:02, Nonspecific ST abnormality is no longer seen Referred By: Santos Fernandez Electronically Signed By: APOLINAR MCMAHON MD
--- NOTE | 2025-01-29 03:26 | PC.NURSE ---
Assumed care of pt at 2300. PT moved from POD to main ED d/t pod closing d/t staffing. PT ambulated to main ED with no issues, now resting quietly in no acute distress. Safety checks remain in place, Sitter at bedside. Plan of care ongoing
--- NOTE | 2025-01-29 06:48 | PC.NURSE ---
Assumed care of patient at 0645, patient moved from ED 16H to 3, calm and cooperative, no apparent distress is noted at this time. Continue plan of care for IPLOC
[2025-01-29] MEDS: ARIPiprazole 30 MG TABLET PO (08:14)
[2025-01-29 08:15] VITALS: BP 117/55
[2025-01-29 08:16] VITALS: BP 117/65; PULSE 117; RESP 18; TEMP 36.3; O2SAT 96
--- NOTE | 2025-01-29 10:04 | MHC.CARE ---
Pt was accepted to [facility] for today 01/29/25. ETA is 7pm and the address is [address] [place] [address]. The accepting doctor is Dr. Pereyra and no nurse to nurse is required by the accepting facility. CARE Team and pod RN have been notified of placement.
--- NOTE | 2025-01-29 11:28 | PC.NURSE ---
Podiatric Assistant provided with transfer paperwork
[2025-01-29 13:41] VITALS: BP 116/66; PULSE 97; RESP 18; TEMP 36.1; O2SAT 97
--- NOTE | 2025-01-29 15:09 | PC.NURSE ---
Pt calm and cooperative, showering at this time
[2025-01-29 18:33] VITALS: BP 116/66; PULSE 97; RESP 18; TEMP 36.1; O2SAT 97
== END 2025-01-29 18:35 ==
PROVIDERS: Physician Assistant; Emergency Provider Emergency Medicine Emergency Medical Services; PCP Internal Medicine
DX: F25.0 Schizoaffective disorder, bipolar type (principal); F84.0 Autistic disorder; R94.31 Abnormal electrocardiogram [ECG] [EKG]; Z51.81 Encounter for therapeutic drug level monitoring; Z79.899 Other long term (current) drug therapy
CPT/HCPCS: 36415; 80053; 80164; 80307; 81001; 85025; 93005; 99285; S9485

== ENCOUNTER → 2025-01-26 12:15 | Outpatient (BNV) | payer MEDICARE, MEDICAID, SELFPAY | PROVIDERS: Emergency Provider Emergency Medicine Emergency Medical Services; PCP Internal Medicine; Visit Provider Psychiatry & Neurology Psychiatry | DX: F25.0 Schizoaffective disorder, bipolar type (principal); F84.0 Autistic disorder | CPT/HCPCS: 99284 ==

== ENCOUNTER → 2025-01-29 10:04 | Outpatient (BNV) | payer MEDICARE, MEDICAID, SELFPAY | PROVIDERS: Emergency Provider Emergency Medicine Emergency Medical Services; PCP Internal Medicine; Visit Provider Internal Medicine Cardiovascular Disease | DX: Z13.6 Encounter for screening for cardiovascular disorders (principal) | CPT/HCPCS: 93010 ==